=== PATIENT | male | born 1950 | race Caucasian/White ===

== ENCOUNTER 2017-06-15 03:26 | Observation (INO) | payer MEDICARE, MEDICAID, SELFPAY ==
[2017-06-15] VITALS (11 sets, daily range): BP systolic 115–145; BP diastolic 63–88; PULSE 50–62; RESP 12–18; TEMP 36.6–36.9; O2SAT 93–98; BMI 29.1; BMI 27.6; BMI 27.7
--- NOTE | 2017-06-15 03:28 | NURSING ---
CALLED FOR EKG PER RN REQUEST, PULLED OLD EKG'S FOR
--- NOTE | 2017-06-15 03:49 | CT_ITS ---
STUDY: CT BRAIN WITHOUT CONTRAST REASON FOR EXAM: Male, 67 years old. Closed head injury after recent fall. Patient is on Plavix. RADIATION DOSAGE (If Supplied By Facility): CTDIvol = ( 44.99 ) mGy, DLP = ( 796.11 ) mGycm TECHNIQUE: Transaxial CT imaging of the brain was performed without administration of intravenous contrast material. Multiplanar reformations are submitted for interpretation. Individualized dose optimization techniques were used for this CT. COMPARISON: CT of the head dated September 16, 2016. FINDINGS: Normal soft tissue structures. Normal calvarium. Normal size ventricles and extra-axial spaces for the patient's age. Normal white matter tracts of the cerebral hemispheres. Normal basal ganglia and thalami. Normal brainstem. Normal cerebellum. There is no intracranial hemorrhage. There is mild atherosclerotic calcification of intracranial arteries. Normal visualized paranasal sinuses. CT/Brain/Head without Contrast IMPRESSION: No CT evidence of acute intracranial hemorrhage. Electronically Signed: Renetta Manzanares MD at 4:50 EDT , Service support ,
--- NOTE | 2017-06-15 03:50 | RAD_ITS ---
STUDY: X-RAY CHEST REASON FOR EXAM: Male, 67 years old. Left-sided chest pain after recent fall. TECHNIQUE: AP and lateral views of the chest. COMPARISON: CT of the chest dated February 12, 2017. FINDINGS: The lungs are expanded. There is increased lucency visible in the right hemithorax that may be the result of COPD. Oligemia is also possible. There are prominent bronchovascular markings in left lung and right lung base. There is no demonstrated pleural abnormality. Normal size heart. Normal mediastinum and orion. There is prominence of the pulmonary hilar arteries with peripheral pulmonary vascular congestion. There is atherosclerotic tortuosity of the aortic arch and descending thoracic aorta. There are diffuse degenerative changes of the visualized thoracic spine. Normal visualized ribs, clavicles, and shoulders. There is no demonstrated abnormality of the visualized soft tissue structures of the upper abdomen. RAD/Chest PA and Lateral IMPRESSION: 1. Apparent oligemia involving the right lung. Differential considerations include pulmonary embolus. 2. Pulmonary congestion. Electronically Signed: Renetta Manzanares MD at 4:55 EDT , Service support ,
--- NOTE | 2017-06-15 03:51 | ED.VISSUMM ---
- ER Visit Summary Date of Service: 06/15/17 Chief Complaint: Fall at home History of Present Illness: The patient is a 67 M history of vertigo, seizures and CAD with one cardiac stent. States he has had vertiginous symptoms for last day or so. Today he lost his balance fell hit his head at home. No LOC. He states he is on Plavix secondary to cardiac stents. Denies any headache or neck pain. No chest pain or shortness of breath. He denies any nausea, vomiting or diarrhea. Physical Examination: Appearing older male. Vital signs are stable and afebrile. He does not look septic or toxic. He is in no acute distress. H EENT exam pupils round reactive light. Motions are intact. No signs of trauma to his face or scalp. No hematoma. No laceration. Nontender. Neck nontender no lymphadenopathy. Trachea midline. Lungs clear to auscultation bilaterally. Heart regular rhythm rate about 55-60. No murmur. Mild left anterior chest wall tenderness. No ecchymosis or bruising. No subcu air or crepitance. No gross bony deformity. Abdomen is soft and nontender. Normal bowel sounds. No peritoneal signs. No bruising or signs of trauma. Pelvic girdle intact. Extremities he is moving all 4. They are neurovascularly intact. Nontender no deformities. Normal range of motion. Normal senior electronics design engineer strength. Normal dorsi plantarflexion. Back exam is nontender without signs of trauma. Neurologically is awake and alert. He is answering questions and following commands. No focal motor deficits. No slurred speech. Test Results: Chest x-ray shows chronic changes no acute process read both by myself and the radiologist. CT of the brain showed no acute intracranial pathology. No acute intracranial bleed. EKG sinus bradycardia rate of 56 with no acute abnormalities unchanged from prior EKG from January of last year. CBC shows a white count 8 H&H is 17 and 50 which is his baseline. Platelet count 137,000 again his baseline. Electrolytes are unremarkable normal creatinine and gap. Orthostatic vital signs were negative. He was dizzy when he came up out of bed. Emergency Department Course and Treatment:. Reportedly hit his head on Plavix. Undergo screening labs and a CT. Treatment Plan: Repeat exam at 33 he is still complaining of vertiginous type of dizziness. Pt will have his ears irrigated out the wax bilaterally. He is doing well repeat exam he took another nitroglycerin due to his chest wall pain on his own. We cannot take anymore that. I did do a repeat EKG and showed a sinus bradycardia rate of 52 and no change from the prior. The nurses have irrigated his ears and a large amount of wax on both sides. Patient will be discharged to home on Antivert for dizziness. Instructed to follow-up with his primary care physician Dr. Mullins. Return if he is feeling worse. Disposition: Discharge Impression: Acute fall with closed head injury Anticoagulated on Plavix Dizziness with a history of vertigo Fall with chest wall contusion This note was generated with [employer] dictation software. It may contain incorrect words, spelling, and punctuation that were not noted in review of the chart prior to signing ED Disposition - Plan for ED Patient: Chief Complaint: Fall Referrals: Elijah Mullins DO [Primary Care Provider] -
[2017-06-15 04:07] LABS: Absolute Lymphocyte Count 1.13 X10^3/ul (0.83-4.51); Absolute Neutrophil Count 5.5 X10^3/uL (2.0-7.7); Basophil# 0.07 X10^3/uL; Basophil% 0.9 % (0-1); Eosinophil# 0.22 X10^3/uL; Eosinophils% 2.7 % (0-5); Hematocrit 50.7 % (40-54); Hemoglobin 17.1 g/dl (13.0-16.5); Lymphocyte # 1.13 X10^3/ul (4.0); Lymphocyte % 13.8 % (19-41); Mean Corp Hgb Conc 33.7 g/gl (32-36); Mean Corpuscular Hgb 34.1 pg (27.0-32.0); Mean Corpuscular Volume 101.2 fL (80-94); Monocyte# 1.08 X10^3/uL; Monocyte% 13.2 % (0-10); Neutrophil # 5.52 X10^3/uL (2.7-7.7); Neutrophil % 67.7 % (47-70); Platelet Count 137 K/mm3 (150-450); RBC Distribution Width CV 13.3 % (11.6-14.6); RBC Distribution Width SD 49.3 fl (35.1-43.9); Red Blood Count 5.01 M/mm3 (4.6-6.2); White Blood Count 8.2 K/mm3 (4.4-11.0)
[2017-06-15 04:08] LABS: POSITIVE COUNT NO; POSITIVE DIFFERENTIAL NO; POSITIVE MORPHOLOGY NO
[2017-06-15 04:22] LABS: Anion Gap 7 (5-15); BUN 22 mg/dL (7-18); BUN/Creat Ratio 17.2 RATIO (10-20); Calcium,Total 8.3 mg/dL (8.5-10.1); Chloride 101 mmol/L (98-107); Creatinine, Serum 1.28 mg/dL (0.70-1.30); EST Glomerular Filtration Rate 59 mL/min (>60); Est Glom Filt Rate - Afr Amer 72 mL/min (>60); Estimated Creatinine Clearance 56.24 ml/min; Glucose 93 mg/dL (74-106); Potassium 4.1 mmol/L (3.5-5.1); Sodium Level 135 mmol/L (136-145)
[2017-06-15] MEDS: Carbamide Peroxide 15 ML Bottle 5 DRP OTIC (05:46)
--- NOTE | 2017-06-15 06:22 | EKG12_ITS ---
Test Reason : CP Blood Pressure : / mmHG Vent. Rate : 056 BPM Atrial Rate : 056 BPM P-R Int : 180 ms QRS Dur : 090 ms QT Int : 406 ms P-R-T Axes : 045 -28 021 degrees QTc Int : 391 ms Sinus bradycardia Inferior infarct , age undetermined Abnormal ECG Reconfirmed by ZHAO XAVIER, RACHEL ([id number]), index editor HARSHAL SALDANA ([id number]) on 06/18/2017 1:50:36 PM Referred By: DR HALL Confirmed By:RACHEL CHURCHILL MD
--- NOTE | 2017-06-15 06:31 | EKG12_ITS ---
Test Reason : REPEAT Blood Pressure : / mmHG Vent. Rate : 052 BPM Atrial Rate : 052 BPM P-R Int : 190 ms QRS Dur : 090 ms QT Int : 422 ms P-R-T Axes : 046 -13 012 degrees QTc Int : 392 ms Sinus bradycardia Otherwise normal ECG Confirmed by RACHEL CHURCHILL MD ([id number]), publications editor HARSHAL SALDANA ([id number]) on 06/18/2017 1:55:41 PM Referred By: ISABEL Confirmed By:RACHEL CHURCHILL MD
--- NOTE | 2017-06-15 07:04 | ED.DEP ---
ED Disposition - Plan for ED Patient: Disposition: Home or Assisted Living Chief Complaint: Fall Instructions: ED Head Injury Closed, ED Vertigo Unspecified Prescriptions: Meclizine HCl [Antivert] 25 mg PO 4X/DAY PRN PRN #20 tab PRN Reason: Dizziness Referrals: Elijah Mullins DO [Primary Care Provider] - As soon as possible Additional Instructions: Antiivert for your dizziness. 1 pill every 6 hours as needed. Call and follow-up your primary care physician Dr. Mullins. Return to ER if you are feeling worse.
[2017-06-15] MEDS: Meclizine 12.5 MG Tablet 25 MG PO (08:25)
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
[2017-06-15] MEDS: oxyCODONE 5 MG Tablet PO (12:40)
--- NOTE | 2017-06-15 13:42 | CASEMGMT ---
Social Work Note Return phone call from Merrill Sanon, pt's rn case management, notifying that the pt receives 10 hrs of aide services per week. Reports that he prefers to have them come out 2x per week for 2 hrs at a time, and another 2x per week week for 3 hrs at a time. An RN from [facility] comes to his home one time per week for injections and he also receives incontinence products and has an emergency alert button. Merrill can be reached at [phone]. Brandee Rodriguez, COLLECTION TEAM LEAD, HEALTH IT SPECIALIST
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
[2017-06-15] MEDS: Meclizine HCl 25 MG Tablet PO ×2 (15:15→21:05)
--- NOTE | 2017-06-15 15:58 | CASEMGMT ---
Social Work Note SW received call from Antonia SANDS that pt is agreeable to Palliative Care referral. SW placed call to [facility] and spoke with Hortensia to give referral. SW faxed H+P, facesheet, medication list and copy of insurance card to [facility]. LAVERNE asked Dr. Vlilarreal if it was ok for this worker to make a referral for palliative care and Dr. Newton gave permission. Per WICHO Knight pt may also need SNF placement at discharge. [employer] Insurance Advisor will continue to follow to assist with discharge planning. Plan: Possible SNF placement. Begin Palliative Care services Elaine Shine PELT GRADER, PORTFOLIO ADMINISTRATOR
[2017-06-15] MEDS: Phenobarbital 32.4 MG Tablet 64.8 MG PO ×2 (17:40→21:05)
[2017-06-15] MEDS: Phenobarbital 32.4 MG Tablet PO ×2 (17:40→21:05)
[2017-06-15] MEDS: Doxazosin 1 MG Tablet 2 MG PO (21:04)
[2017-06-15] MEDS: Doxazosin 1 MG Tablet PO (21:05)
[2017-06-15] MEDS: Atorvastatin Calcium 10 MG Tablet PO (21:05)
[2017-06-15] MEDS: traZODone 100 MG Tablet PO (21:06)
[2017-06-15] MEDS: ALPRAZolam 0.5 MG Tablet 2 MG PO (21:10)
[2017-06-16] VITALS (7 sets, daily range): BP systolic 115–119; BP diastolic 61–76; PULSE 50–69; RESP 16–18; TEMP 36.7–37.1; O2SAT 98–99
[2017-06-16] MEDS: Meclizine HCl 25 MG Tablet PO ×3 (02:15→14:33)
[2017-06-16] MEDS: Aspirin 81 MG TAB.CHEW PO (08:33)
[2017-06-16] MEDS: Isosorbide Mononitrate 30 MG Tablet PO (08:34)
[2017-06-16] MEDS: Clopidogrel Bisulfate 75 MG Tablet PO (08:35)
[2017-06-16] MEDS: Montelukast 10 MG Tablet PO (08:35)
[2017-06-16] MEDS: Phenobarbital 32.4 MG Tablet PO (08:40)
[2017-06-16] MEDS: ALPRAZolam 0.5 MG Tablet 2 MG PO (08:40)
--- NOTE | 2017-06-16 10:12 | CASEMGMT ---
RN CM Note: Pt was seen by Palliative Care. Declined services @ this time. LAVERNE Henry updated. Henny NÚÑEZN RN ACM
--- NOTE | 2017-06-16 13:28 | CASEMGMT ---
Social Work Note LAVERNE received call from Sylvia Collazo from [facility] for the [facility] asking about pt's fall that led him into the hospital. LAVERNE called Sylvia back and provided Sylvia with information regarding pt's fall. LAVERNE states that pt lost balance because of vertigo and fell and did not lose conscious which is what is stated in pt's H+P. Sylvia asked if pt has DME at home and per note done by Brandee Rodriguez REGISTERED PHLEBOTOMIST PART TIME, CONFIGURATION MANAGEMENT CONSULTANT, ER SW, pt has a cane at home and has [employer]. LAVERNE met with pt to discuss discharge planning. Pt states that his plan is to go home and resume aide services. Pt states that he thinks he did well with therapy today and that he will be returning home at discharge. Pt denied additional needs or concerns at this time. LAVERNE informed RN ANGELICA Alfaro of this. Plan: Return home at discharge and resume aide services Elaine Shine REGISTERED PHLEBOTOMIST PART TIME, CONFIGURATION MANAGEMENT CONSULTANT
--- NOTE | 2017-06-16 14:41 | DCINST_ITS ---
- Discharge Diagnoses Current Active Problems: vertigo musculoskeletal pain back and chest secondary to a fall You will use the following diet at home:: Other - Resume previous diet Discharge Activity: Return to Normal Activity, May Not Drive Call your doctor if you observe: Fever of 101 or Higher, Shortness of breath, Dizziness, Fainting spells Instructions: ED Head Injury Closed, ED Vertigo Unspecified Allergies/Adverse Reactions: Allergies bee pollen Allergy (Severe, Verified 06/15/17 03:48) Anaphylaxis carbamazepine [From Tegretol] Allergy (Mild, Verified 06/15/17 03:48) Hives sucralfate [From Carafate] Allergy (Mild, Verified 06/15/17 03:48) Hives phenytoin sodium [From Dilantin] Allergy (Verified 06/15/17 03:48) Hives At doses of higher than 100 mg phenytoin sodium extended [From Dilantin] Allergy (Verified 06/15/17 03:48) Hives At doses of higher than 100 mg acetaminophen [From Tylenol] Adverse Reaction (Verified 06/15/17 12:04) Hives amlodipine besylate [From Norvasc] Adverse Reaction (Verified 06/15/17 03:48) Upset Stomach cephalexin [From Keflex] Adverse Reaction (Verified 06/15/17 03:48) Unknown sesame oil Adverse Reaction (Verified 06/15/17 03:48) Upset Stomach Sulfa (Sulfonamide Antibiotics) Adverse Reaction (Verified 06/15/17 03:48) Unknown Medications to take at Discharge Clopidogrel Bisulfate [Plavix] 75 mg PO DAILY 03/03/14 ALPRAZolam [Xanax] 2 mg PO BID 05/04/14 Aspirin [Aspirin, Baby] 81 mg PO DAILY@0800 05/04/14 Montelukast [Singulair] 10 mg PO DAILY 05/04/14 Nitroglycerin [Nitrostat] 0.4 mg SUBLINGUAL Q5M PRN 05/04/14 [place]-3 Fatty Acids/Fish Oil [[place] 3 Fish Oil Softgel] 1 ea PO DAILY 05/04/14 Ascorbic Acid [Vitamin C] 500 mg PO DAILY@0800 04/03/15 Phenobarbital 32.4 mg PO TID 04/03/15 Phenobarbital 64.8 mg PO BID 04/03/15 Potassium 99 mg PO DAILY 04/03/15 Testosterone Cypionate [Depo-Testosterone] 1 mg IM QWEEK 04/03/15 Varenicline [Chantix] 1 mg PO BID 04/03/15 traZODone [Desyrel] 100 mg PO QHS 04/03/15 Epinephrine [Epi Pen] 0.3 mg IM X1 02/11/16 Cholecalciferol (Vitamin D3) [Vitamin D3] 5,000 unit PO DAILY 09/16/16 Isosorbide Mononitrate [Isosorbide Mononitrate ER] 1 tab PO DAILY 09/16/16 Simvastatin 20 mg PO DAILY 09/16/16 [place] 15 mg PO QHS 01/11/17 Tiagabine HCl [Gabitril] 4 mg PO 4X/DAY 01/12/17 albuterol sulfate HFA 90 mcg/actuation aerosol inhaler 2 puff INHALATION Q4H PRN g 03/05/17 Diazepam [Valium] 10 mg PO PRN PRN 06/15/17 Meclizine HCl [Antivert] 25 mg PO 4X/DAY PRN PRN #20 tab 06/15/17 Oxycodone HCl/Acetaminophen [Percocet 10-325 mg Tablet] 1 tablet PO Q8H PRN PRN 06/15/17 Prazosin HCl 1 mg PO QHS 06/15/17 Meclizine HCl [Antivert] 25 mg PO Q6H PRN #20 tab 06/16/17 The following prescriptions were given: Meclizine HCl [Antivert] 25 mg PO 4X/DAY PRN PRN #20 tab PRN Reason: Dizziness Meclizine HCl [Antivert] 25 mg PO Q6H PRN #20 tab PRN Reason: Vertigo Primary Care Physician: Elijah Mullins DO [Primary Care Provider] - As soon as possible Please follow up with your Primary Care Physician in: 1-2 weeks Proposed Discharge Date: 06/16/17
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
--- NOTE | 2017-06-17 08:30 | CASEMGMT ---
Pt was discharged later in the afternoon yesterday. SW called Sharad Wise at [facility], let her know pt was discharged home yesterday, she will call pt's service providers. No further needs are anticipated. WICHO Hatfield, SPORTS PHYSICIAN
--- NOTE | 2017-06-17 11:27 | CASEMGMT ---
SW received a call from Sylvia Woodall, clinical tax investigator from [facility]. She inquired how pt fell, she states whenever a pt falls she has to find out why and report it to the dept of Medicaid. She states there are 18 different reasons she would get involved w/a pt, and falls are one. SW did let her know, for continuity of care, that pt fell due to vertigo. No further needs anticipated. WICHO Hatfield, PARTY PLAN DEALER
== END 2017-06-16 15:15 | disposition home or self-care (01) ==
LOC: ED 07:07 → MS2 11:02
PROVIDERS: Admitting Provider Internal Medicine; Emergency Provider Emergency Medicine; Family Provider Family Medicine; PCP Family Medicine; Visit Provider Internal Medicine
DX: R42 Dizziness and giddiness (principal); M54.9 Dorsalgia, unspecified; R00.1 Bradycardia, unspecified; S09.90XA Unspecified injury of head, initial encounter; W19.XXXA Unspecified fall, initial encounter; Y93.9 Activity, unspecified; Y92.009 Unspecified place in unspecified non-institutional (private) residence as the place of occurrence of the external cause; I25.10 Atherosclerotic heart disease of native coronary artery without angina pectoris; Z79.02 Long term (current) use of antithrombotics/antiplatelets; Z79.82 Long term (current) use of aspirin; Z79.899 Other long term (current) drug therapy; N40.0 Benign prostatic hyperplasia without lower urinary tract symptoms; I12.9 Hypertensive chronic kidney disease with stage 1 through stage 4 chronic kidney disease, or unspecified chronic kidney disease; N18.3 Chronic kidney disease, stage 3 (moderate); F43.12 Post-traumatic stress disorder, chronic; G40.509 Epileptic seizures related to external causes, not intractable, without status epilepticus; E78.5 Hyperlipidemia, unspecified; E66.9 Obesity, unspecified; Z68.27 Body mass index [BMI] 27.0-27.9, adult; Z71.3 Dietary counseling and surveillance; K21.9 Gastro-esophageal reflux disease without esophagitis; Z95.5 Presence of coronary angioplasty implant and graft; N52.9 Male erectile dysfunction, unspecified; D75.1 Secondary polycythemia; D69.6 Thrombocytopenia, unspecified; S20.219A Contusion of unspecified front wall of thorax, initial encounter; M51.36 Other intervertebral disc degeneration, lumbar region; Z87.891 Personal history of nicotine dependence
CPT/HCPCS: 70450; 71046; 80048; 85025; 93005; 97162; 97165; 97530; 99218; 99285; A4216; G0378; G8988

== ENCOUNTER → 2017-07-21 15:31 | Outpatient (CLI) | payer MEDICARE, MEDICAID, SELFPAY ==
[2017-07-21 17:55] LABS: Absolute Lymphocyte Count 1.14 X10^3/ul (0.83-4.51); Absolute Neutrophil Count 5.5 X10^3/uL (2.0-7.7); Basophil# 0.05 X10^3/uL; Basophil% 0.7 % (0-1); Eosinophil# 0.09 X10^3/uL; Eosinophils% 1.2 % (0-5); Hematocrit 50.6 % (40-54); Hemoglobin 16.9 g/dl (13.0-16.5); Lymphocyte # 1.14 X10^3/ul (4.0); Lymphocyte % 14.9 % (19-41); Mean Corp Hgb Conc 33.4 g/gl (32-36); Mean Corpuscular Hgb 33.7 pg (27.0-32.0); Mean Platelet Vol. 10.5 fl (6.2-12.0); Monocyte# 0.83 X10^3/uL; Monocyte% 10.9 % (0-10); Neutrophil # 5.46 X10^3/uL (2.7-7.7); Neutrophil % 71.5 % (47-70); Platelet Count 141 K/mm3 (150-450); RBC Distribution Width CV 13.4 % (11.6-14.6); RBC Distribution Width SD 49.7 fl (35.1-43.9); Red Blood Count 5.01 M/mm3 (4.6-6.2); White Blood Count 7.6 K/mm3 (4.4-11.0)
[2017-07-21 18:01] LABS: POSITIVE COUNT NO; POSITIVE DIFFERENTIAL NO; POSITIVE MORPHOLOGY NO
[2017-07-21 18:06] LABS: ALB/GLOB Ratio 1.2 RATIO (0.9-2.4); AST(SGOT) 20 U/L (15-37); Alanine Aminotransfer ALT/SGPT 36 U/L (16-61); Albumin, Serum 4.2 g/dL (3.2-5.0); Alkaline Phosphatase 73 U/L (45-117); Anion Gap 9 (5-15); BUN 17 mg/dL (7-18); BUN/Creat Ratio 12.8 RATIO (10-20); Calcium,Total 8.6 mg/dL (8.5-10.1); Chloride 102 mmol/L (98-107); Creatinine, Serum 1.33 mg/dL (0.70-1.30); EST Glomerular Filtration Rate 57 mL/min (>60); Est Glom Filt Rate - Afr Amer 69 mL/min (>60); Globulin 3.6 g/dL (2.2-4.2); Glucose 118 mg/dL (74-106); Potassium 3.8 mmol/L (3.5-5.1); Protein, Total 7.8 g/dL (6.4-8.2); Sodium Level 138 mmol/L (136-145); Thyroid Stim Hormone (TSH) 2.44 uIU/mL (0.358-3.74)
[2017-07-22 09:26] LABS: Vitamin B12 807 pg/mL (211-911)
[2017-07-24 12:08] LABS: ANTINUCLEAR ANTIBODIES DIRECT Negative (Negative)
[2017-07-26 12:06] LABS: Testosterone, Free 37.06 ng/dL (5.00-21.00)
[2017-07-26 12:46] LABS: Hep C Antibodies <0.1 s/co ratio (0.0-0.9); Testosterone, Total 1278 ng/dL (264-916)
== END ==
PROVIDERS: Family Provider Family Medicine; PCP Family Medicine; Visit Provider Family Medicine
DX: R53.83 Other fatigue (principal); R07.9 Chest pain, unspecified; E55.9 Vitamin D deficiency, unspecified; G40.909 Epilepsy, unspecified, not intractable, without status epilepticus; E29.1 Testicular hypofunction; N18.3 Chronic kidney disease, stage 3 (moderate)
CPT/HCPCS: 36415; 80053; 82306; 82607; 84402; 84403; 84443; 85025; 86038; 86225; 86235; 86803

== ENCOUNTER 2017-11-15 02:37 | Observation (INO) | payer MEDICARE, MEDICAID, SELFPAY ==
[2017-11-15] VITALS (13 sets, daily range): BP systolic 110–151; BP diastolic 57–80; PULSE 50–70; RESP 12–17; TEMP 36.4–36.6; O2SAT 94–100; BMI 29.7; BMI 28.4; BMI 28.5
--- NOTE | 2017-11-15 03:14 | EKG12_ITS ---
Test Reason : STROKE Blood Pressure : / mmHG Vent. Rate : 052 BPM Atrial Rate : 052 BPM P-R Int : 182 ms QRS Dur : 084 ms QT Int : 420 ms P-R-T Axes : 041 -22 013 degrees QTc Int : 390 ms Sinus bradycardia Inferior infarct , age undetermined Abnormal ECG Confirmed by ZHAO XAVIER, RACHEL ([id number]), writer editor HARSHAL SALDANA ([id number] on 11/17/2017 1:17:09 PM Referred By: CRICKET Confirmed By:RACHEL CHURCHILL MD
--- NOTE | 2017-11-15 03:25 | ED.VISSUMM ---
- ER Visit Summary Date of Service: 11/15/17 Chief Complaint: Seizure, slurred speech History of Present Illness: The patient is a 67 M presenting after seizure. Patient states he had a seizure tonight. He states when he stood up after the seizure he was still disoriented. He fell and hit the back of his head and his lower back. He did not lose consciousness when he fell. He denies nausea or vomiting. Denies chest pain or shortness of breath. Denies fever. He also has slurred speech. He states he is unsure what time this started but states it started tonight. Physical Examination: Vitals are stable. Patient is afebrile. Alert no acute distress. HEENT exam is unremarkable. Neck is supple. Lungs are clear and equal bilaterally. Heart is regular rate and rhythm. Abdomen is soft nontender nondistended. Extremities are unremarkable. Skin is warm and dry. NIH 1, dysarthria Remainder of exam is unremarkable. Emergency Department Course and Treatment: EKG is sinus bradycardia rate of 52. Chest x-ray shows age-indeterminate fracture of right rib 5. No acute pulmonary findings. Thoracic and lumbar spine x-ray showed no acute process. CT head and C-spine show no acute process. CBC normal except for hemoglobin 17.5, platelets 132. Chemistries show potassium 5.5, creatinine 1.38. INR is 1.0. Troponin less than 0.015. Phenobarbital 46.1. Alcohol negative. Patient continues to have dysarthria. NIH continues to be 1. Will discuss with the hospitalist for observation. Disposition: Observation Impression: Dysarthria, seizure, seizure disorder This note was generated with [employer] dictation software. It may contain incorrect words, spelling, and punctuation that were not noted in review of the chart prior to signing ED Disposition - Plan for ED Patient: Chief Complaint: Back Referrals: Elijah Mullins DO [Primary Care Provider] -
[2017-11-15 03:28] LABS: Absolute Lymphocyte Count 0.99 X10^3/ul (0.83-4.51); Absolute Neutrophil Count 6.7 X10^3/uL (2.0-7.7); Basophil# 0.04 X10^3/uL; Basophil% 0.4 % (0-1); Eosinophil# 0.26 X10^3/uL; Eosinophils% 2.8 % (0-5); Hematocrit 55.1 % (40-54); Hemoglobin 17.5 g/dl (13.0-16.5); Lymphocyte # 0.99 X10^3/ul (4.0); Lymphocyte % 10.5 % (19-41); Mean Corp Hgb Conc 31.8 g/gl (32-36); Mean Corpuscular Hgb 33.1 pg (27.0-32.0); Mean Corpuscular Volume 104.4 fL (80-94); Mean Platelet Vol. 10.1 fl (6.2-12.0); Monocyte# 1.33 X10^3/uL; Monocyte% 14.1 % (0-10); Neutrophil # 6.68 X10^3/uL (2.7-7.7); Neutrophil % 71.1 % (47-70); POSITIVE COUNT NO; POSITIVE DIFFERENTIAL NO; POSITIVE MORPHOLOGY NO; Platelet Count 132 K/mm3 (150-450); RBC Distribution Width CV 13.5 % (11.6-14.6); RBC Distribution Width SD 52.2 fl (35.1-43.9); Red Blood Count 5.28 M/mm3 (4.6-6.2); White Blood Count 9.4 K/mm3 (4.4-11.0)
[2017-11-15 03:32] LABS: Prothrombin Time (Protime)PT. 13.6 SECONDS (11.7-14.9)
[2017-11-15 03:33] LABS: Partial Thromboplast Time 27.5 Seconds (24.1-36.2)
[2017-11-15 03:43] LABS: Anion Gap 4 (5-15); BUN 17 mg/dL (7-18); BUN/Creat Ratio 12.3 RATIO (10-20); Calcium,Total 8.9 mg/dL (8.5-10.1); Chloride 104 mmol/L (98-107); Creatinine, Serum 1.38 mg/dL (0.70-1.30); EST Glomerular Filtration Rate 54 mL/min (>60); Est Glom Filt Rate - Afr Amer 66 mL/min (>60); Estimated Creatinine Clearance 52.16 ml/min; Glucose 77 mg/dL (74-106); Potassium 5.5 mmol/L (3.5-5.1); Sodium Level 140 mmol/L (136-145)
[2017-11-15 03:46] LABS: Alcohol, Blood (Medical)-Serum < 3.0 mg/dL
--- NOTE | 2017-11-15 03:47 | ED.RN ---
dr weiss made aware of phenobarb level 46.1.
[2017-11-15 04:30] LABS: Bedside Glucose 74 mg/dL (70-110)
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
[2017-11-15 08:38] LABS: AST(SGOT) 23 U/L (15-37); Alanine Aminotransfer ALT/SGPT 40 U/L (16-61); Albumin, Serum 3.5 g/dL (3.2-5.0); Alkaline Phosphatase 70 U/L (45-117); Bilirubin, Direct 0.16 mg/dL (0.00-0.30); Globulin 3.7 g/dL (2.2-4.2); Protein, Total 7.2 g/dL (6.4-8.2)
--- NOTE | 2017-11-15 10:23 | PCM.PN.HOSP ---
Subjective: Patient states that he was having a nightmare, woke up, hit his head on an object and then fell to the floor and was unable to get up. He denies any loss of consciousness. He denies any seizures. When EMS arrived, patient was having slurred speech despite his teeth being in and which is overall weak. Vitals/I&O's: Vital Signs Temp Pulse Resp BP Pulse Ox 36.4 C L 50 L 17 143/77 H 99 11/15/17 07:15 11/15/17 07:15 11/15/17 07:15 11/15/17 07:15 11/15/17 07:15 Oxygen Flow Rate (L/min) 2 Oxygen Delivery Method Nasal Cannula Weight: 90 kg Body Mass Index (BMI) 28.4 General: Alert, No apparent distress HEENT: Atraumatic, EOMI, Normocephalic, - - Does not track eyes in any direction with follow my finger nor direct commands to turn his eye in certain positions. Oral: Moist Mucosa, No Gingival or Mucosal Lesions/ Ulcerations, - - Edentulous Neck: No Nodes, Thyroid Normal Size and Texture Lungs: Clear to auscultation, Normal air movement, No rhonchi, No wheeze Cardiovascular: Regular rate, Regular Rhythm, Normal S1, Normal S2, No murmurs Abdomen: Bowel Sounds Present, Soft, Non Tender, Non-Distended, No Hepato-splenomegaly Extremities: No edema, No Calf Tenderness Skin: No rashes, No breakdown Musculoskeletal: No Tenderness to Palpation of Joints or Extremities, No Muscle Wasting Neurological: Cranial nerves II-XII grossly intact, Deep Tendon Reflexes 2+/4 and Symmetrical, Neuro grossly intact, Motor Exam 5/5 strength throughout, Coordination normal Psych/Mental Status: Normal Affect, Appropriate Laboratory Results 11/15/17 08:15: Total Bilirubin 0.40, Direct Bilirubin 0.16, AST 23, ALT 40, Alkaline Phosphatase 70, Troponin I < 0.015, Total Protein 7.2, Albumin 3.5, Globulin 3.7 Current Medications Albuterol Sulfate (Ventolin Aerosols) 2.5 mg INHALATION Q4H PRN PRN Reason: shortness of breath or wheezing Ascorbic Acid (Vitamin C) 500 mg PO DAILY@0800 [facility] Aspirin (Aspirin, Baby) 81 mg PO DAILY@0800 [facility] Clopidogrel Bisulfate (Plavix) 75 mg PO DAILY ALAN Enoxaparin Sodium (Lovenox) 40 mg SC DAILY@0600 ALAN Sodium Chloride () 1,000 mls @ 100 mls/hr IV .Q10H ALAN Isosorbide Mononitrate (Imdur) 30 mg PO DAILY ALAN Magnesium Hydroxide (Milk Of Magnesia) 30 ml PO DAILY PRN PRN Reason: Constipation Montelukast Sodium (Singulair) 10 mg PO DAILY [facility] Nitroglycerin (Nitrostat) 0.4 mg SUBLINGUAL Q5M PRN PRN Reason: Chest Pain Non-Formulary Medication ([place]) 15 mg PO QHS ALAN Non-Formulary Medication (Diazepam [Valium]) 10 mg PO PRN PRN PRN Reason: Seizure Non-Formulary Medication (Prazosin Hcl [Prazosin Hcl]) 1 mg PO QHS ALAN Non-Formulary Medication (Simvastatin [Simvastatin]) 20 mg PO DAILY ALAN Non-Formulary Medication (Testosterone Cypionate [Depo-Testosterone]) 1 mg IM QWEEK ALAN Sodium Chloride () 5 - 30 ml IV UD PRN PRN Reason: SALINE FLUSH Tiagabine HCl (Gabitril) 4 mg PO 4X/DAY ALAN Trazodone HCl (Desyrel) 100 mg PO QHS ALAN Medical Necessity - Tobacco Use Smoking Status: Former smoker Assessment/Plan All Active Problems (Last Reviewed 11/15/17 @ 05:42 by Carloz Benoit MD) History of cholecystectomy (Resolved) History of transurethral resection of prostate (Resolved) History of appendectomy (Resolved) History of cardiac catheterization (Resolved) Vertigo (Resolved) Hyponatremia (Acute) Angina at rest (Resolved) Muscle weakness of left arm (Resolved) Paresthesia of left arm (Resolved) Syncope (Resolved) 1. Slurred speech From the patient's description there is never any seizure. Patient did endorse that he did have some slurred speech Patient's speech is compensable though does have delivery reported that the fact that he does not have his dentures in. He has no focal deficits on exam. The slurred speech may have just been him being very wiped out. MRI ordered. 2. Debility Patient was unable to get off the floor, to which is why called EMS and that when they heard him talking is why they brought him in. We will have physical and occupational therapy see him and assess if he requires any skilled needs. 3. Seizure disorder Phenobarbital level was slightly high. Unclear how much that was extruding factor in regards to his debility. Patient is on 32.4 mg of phenobarbital 3 times daily at home. I would recommend twice daily dosing and follow-up with his neurologist. Continue Gabitril 4. DVT prophylaxis with Lovenox 5. Disposition: Awaiting on MRI reports plus therapy evaluation Code Visit Inpatient E&M: [id number] Subs Hosp L3
--- NOTE | 2017-11-15 10:33 | NURSING ---
Pt. transported to MRI via hospital bed with oxygen at 2 l/min.
[2017-11-15] MEDS: 0.9% Normal Saline 1,000 ML 100 ML IV (13:04)
[2017-11-15] MEDS: 0.9% NaCl Peripheral Flush Adult/Peds IV (13:06)
[2017-11-15] MEDS: Aspirin 81 MG TAB.CHEW PO (13:44)
[2017-11-15] MEDS: Enoxaparin 40 MG/0.4 ML Syringe SC (13:45)
[2017-11-15] MEDS: Isosorbide Mononitrate 30 MG Tablet PO (13:45)
[2017-11-15] MEDS: Ascorbic Acid 500 MG Tablet PO (13:45)
[2017-11-15] MEDS: Clopidogrel Bisulfate 75 MG Tablet PO (13:46)
[2017-11-15] MEDS: Montelukast 10 MG Tablet PO (13:46)
[2017-11-15 17:23] LABS: Mucous, Urine 0 SEEN /hpf (<or=2+); Red Blood Cells-Urine 0 SEEN /hpf (0-5)
--- NOTE | 2017-11-15 17:23 | PCM.DC ---
You will use the following diet at home:: Cardiac Your food should be the consistency of: Regular Your liquids should be the consistency of: Regular/Thin Call your doctor if you observe: Fever of 101 or Higher, Shortness of breath Allergies/Adverse Reactions: Allergies bee pollen Allergy (Severe, Verified 06/15/17 03:48) Anaphylaxis carbamazepine [From Tegretol] Allergy (Mild, Verified 06/15/17 03:48) Hives sucralfate [From Carafate] Allergy (Mild, Verified 06/15/17 03:48) Hives latex Allergy (Verified 11/15/17 09:10) Rash phenytoin sodium [From Dilantin] Allergy (Verified 06/15/17 03:48) Hives At doses of higher than 100 mg phenytoin sodium extended [From Dilantin] Allergy (Verified 06/15/17 03:48) Hives At doses of higher than 100 mg acetaminophen [From Tylenol] Adverse Reaction (Verified 06/15/17 12:04) Hives amlodipine besylate [From Norvasc] Adverse Reaction (Verified 06/15/17 03:48) Upset Stomach cephalexin [From Keflex] Adverse Reaction (Verified 06/15/17 03:48) Unknown sesame oil Adverse Reaction (Verified 06/15/17 03:48) Upset Stomach Sulfa (Sulfonamide Antibiotics) Adverse Reaction (Verified 06/15/17 03:48) Unknown Medications to take at Discharge Clopidogrel Bisulfate [Plavix] 75 mg PO DAILY 03/03/14 ALPRAZolam [Xanax] 2 mg PO BID 05/04/14 Aspirin [Aspirin, Baby] 81 mg PO DAILY@0800 05/04/14 Montelukast [Singulair] 10 mg PO DAILY 05/04/14 Nitroglycerin [Nitrostat] 0.4 mg SUBLINGUAL Q5M PRN 05/04/14 [place]-3 Fatty Acids/Fish Oil [[place] 3 Fish Oil Softgel] 1 ea PO DAILY 05/04/14 Ascorbic Acid [Vitamin C] 500 mg PO DAILY@0800 04/03/15 Phenobarbital 32.4 mg PO TID 04/03/15 Phenobarbital 64.8 mg PO BID 04/03/15 Potassium 99 mg PO DAILY 04/03/15 Testosterone Cypionate [Depo-Testosterone] 1 mg IM QWEEK 04/03/15 Varenicline [Chantix] 1 mg PO BID 04/03/15 traZODone [Desyrel] 100 mg PO QHS 04/03/15 Epinephrine [Epi Pen] 0.3 mg IM X1 02/11/16 Cholecalciferol (Vitamin D3) [Vitamin D3] 2,000 unit PO DAILY 09/16/16 Isosorbide Mononitrate [Isosorbide Mononitrate ER] 1 tab PO DAILY 09/16/16 Simvastatin 20 mg PO DAILY 09/16/16 [place] 15 mg PO QHS 01/11/17 Tiagabine HCl [Gabitril] 4 mg PO 4X/DAY 01/12/17 albuterol sulfate HFA 90 mcg/actuation aerosol inhaler 2 puff INHALATION Q4H PRN g 03/05/17 Diazepam [Valium] 10 mg PO PRN PRN 06/15/17 Oxycodone HCl/Acetaminophen [Percocet 10-325 mg Tablet] 1 tablet PO Q8H PRN PRN 06/15/17 Prazosin HCl 1 mg PO QHS 06/15/17 Primary Care Physician: Elijah Mullins DO [Primary Care Provider] - Within 2 Weeks Test Results: Test results from this visit will be discussed in further detail at your follow-up appointment, if applicable. Please Follow Up With: Neurology When: 1-2 months Proposed Discharge Date: 11/15/17
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
[2017-11-15 17:37] LABS: Color, Urine Straw (Yellow); Glucose, Dipstick Normal (Normal); Ketone-Dipstick Negative (Negative); Leukocyte Esterase-Dipstick 500 /ul (Negative); Nitrite-Dipstick Positive (Negative); Occult Blood-Urine 10 /ul (Negative); Protein-Dipstick Negative (Negative); Specific Gravity, Urine 1.005 (1.002-1.030); Urine Bilirubin Dipstick Negative (Negative); Urine Clarity Clear (Clear); Urine Urobilinogen Normal (Normal)
[2017-11-15 18:00] LABS: Bacteria 4+ /hpf (None Seen); Squamous Epithelial Cells - UA 0-5 SEEN /hpf (0-5); White Blood Cells 25-50 SEEN /hpf (0-5)
[2017-11-15 18:01] LABS: Amphetamine Urine VISTA NEGATIVE (<1000 ng/mL); Barbiturate Urine VISTA POSITIVE (< 200 ng/mL); Benzodiazepine Urine VISTA POSITIVE (< 200 ng/mL); Cocaine Urine VISTA NEGATIVE (< 300 ng/mL); Ecstacy Urine VISTA NEGATIVE (< 500 ng/mL); Methadone Urine VISTA NEGATIVE (< 300 ng/mL); PCP Urine VISTA NEGATIVE (< 25 ng/mL); THC Urine VISTA NEGATIVE (< 50 ng/mL); Vista UDS pH Range 6
== END 2017-11-15 18:44 | disposition home or self-care (01) ==
LOC: ED 04:41 → PCU 06:12
PROVIDERS: Admitting Provider Internal Medicine; Emergency Provider Emergency Medicine; Family Provider Family Medicine; PCP Family Medicine
DX: R47.81 Slurred speech (principal); G40.909 Epilepsy, unspecified, not intractable, without status epilepticus; R47.1 Dysarthria and anarthria; R00.1 Bradycardia, unspecified; E78.5 Hyperlipidemia, unspecified; I25.10 Atherosclerotic heart disease of native coronary artery without angina pectoris; N40.0 Benign prostatic hyperplasia without lower urinary tract symptoms; K21.9 Gastro-esophageal reflux disease without esophagitis; Z95.5 Presence of coronary angioplasty implant and graft; F43.12 Post-traumatic stress disorder, chronic; I12.9 Hypertensive chronic kidney disease with stage 1 through stage 4 chronic kidney disease, or unspecified chronic kidney disease; N18.3 Chronic kidney disease, stage 3 (moderate); Z79.899 Other long term (current) drug therapy; Z79.02 Long term (current) use of antithrombotics/antiplatelets; Z79.82 Long term (current) use of aspirin; M51.36 Other intervertebral disc degeneration, lumbar region; Z87.891 Personal history of nicotine dependence; D69.6 Thrombocytopenia, unspecified; D75.1 Secondary polycythemia
CPT/HCPCS: 70450; 70496; 70498; 70551; 71045; 72072; 72100; 72125; 80048; 80076; 80184; 80307; 80320; 81001; 82962; 84484; 85025; 85610; 85730; 92523; 93005; 96360; 96361; 96372; 97802; 99218; 99285; J7030; Q9967; A4216; G0378; G0480; G8996; G8997; G8998

== ENCOUNTER → 2017-12-10 13:47 | Outpatient (CLI) | payer MEDICARE, MEDICAID, SELFPAY ==
[2017-12-10 15:55] LABS: Hematocrit 54.4 % (40-54); Hemoglobin 17.6 g/dl (13.0-16.5); Mean Corp Hgb Conc 32.4 g/gl (32-36); Mean Corpuscular Hgb 32.6 pg (27.0-32.0); Mean Corpuscular Volume 100.7 fL (80-94); Mean Platelet Vol. 10.7 fl (6.2-12.0); Platelet Count 152 K/mm3 (150-450); RBC Distribution Width CV 13.9 % (11.6-14.6); RBC Distribution Width SD 51.8 fl (35.1-43.9); White Blood Count 8.4 K/mm3 (4.4-11.0)
[2017-12-10 16:03] LABS: Cholesterol 167 mg/dL (200); Differential Indicated MANUAL DIFF; High Density Lipoprotein 57 mg/dL; POSITIVE COUNT YES; POSITIVE DIFFERENTIAL NO; POSITIVE MORPHOLOGY YES; Triglycerides 89 mg/dL; Very Low Density Lipoprotein 18 mg/dL (5-40)
[2017-12-10 16:48] LABS: Lymphocyte 11 % (19-41); Metamyelocyte 2 % (0-1); Monocyte 8 % (0-10); Neutrophil-Band 3 % (0-5); Neutrophil-Segmented 76 % (47-70); Red Cell Morphology NORM C+C NORMAL (NORM C&C); Total Cells Counted 100 (MANUAL DIFF)
[2017-12-10 16:49] LABS: Platelet Estimate ADEQUATE (ADEQ)
[2017-12-10 16:50] LABS: Absolute Lymphocyte Count 0.93 X10^3/ul (0.83-4.51); Absolute Neutrophil Count 6.8 X10^3/uL (2.0-7.7)
[2017-12-11 15:20] LABS: Pathologist Review Reviewed
[2017-12-15 12:08] LABS: Testosterone, Free 24.59 ng/dL (5.00-21.00)
[2017-12-15 14:39] LABS: Testosterone, Total 745 ng/dL (264-916)
== END ==
PROVIDERS: Family Provider Family Medicine; PCP Family Medicine; Visit Provider Family Medicine
DX: Z51.81 Encounter for therapeutic drug level monitoring (principal); E29.1 Testicular hypofunction; R53.83 Other fatigue; I10 Essential (primary) hypertension
CPT/HCPCS: 36415; 80061; 84402; 84403; 85025

== ENCOUNTER 2018-02-13 08:18 | Emergency (ER) | payer MEDICARE, MEDICAID, SELFPAY ==
[2018-02-13 08:19] VITALS: BP 144/71; PULSE 63; RESP 18; TEMP 36.9; O2SAT 96; BMI 30.3
--- NOTE | 2018-02-13 08:22 | EKG12_ITS ---
Test Reason : CP Blood Pressure : / mmHG Vent. Rate : 064 BPM Atrial Rate : 064 BPM P-R Int : 172 ms QRS Dur : 090 ms QT Int : 394 ms P-R-T Axes : 041 -19 017 degrees QTc Int : 406 ms Normal sinus rhythm Inferior infarct , age undetermined Abnormal ECG Confirmed by ZHAO XAVIER, RACHEL ([id number]), non linear editor HARSHAL SALDANA ([id number]) on 02/15/2018 1:40:04 PM Referred By: CIARRA Confirmed By:RACHEL CHURCHILL MD
--- NOTE | 2018-02-13 08:22 | RAD_ITS ---
STUDY: X-RAY CHEST REASON FOR EXAM: Male, 67 years old. Sudden onset of chest pain this morning. TECHNIQUE: Single AP portable view of the chest. COMPARISON: 11/15/2017. FINDINGS: There are mild hypoventilatory changes. No focal infiltrate is seen. There is no demonstrated pleural abnormality. Normal size heart. Normal mediastinum and orion. Normal visualized pulmonary arteries. Normal visualized aortic arch and descending thoracic aorta. There are diffuse degenerative changes of the visualized thoracic spine. Normal visualized ribs, clavicles, and shoulders. There is no demonstrated abnormality of the visualized soft tissue structures of the upper abdomen. RAD/Chest 1 View (Portable) IMPRESSION: No active pulmonary disease. Electronically Signed: Tony Pope MD at 9:02 EST Tel , Service support ,
--- NOTE | 2018-02-13 08:24 | ED.VISSUMM ---
- ER Visit Summary Date of Service: 02/13/18 Chief Complaint: Chest pain History of Present Illness: The patient is a 67 M who presents with chest pain. Chest pain started about 3 hours ago. He describes sharp pain in the substernal area that radiated to the left arm. He took nitroglycerin which made his pain better. He did vomit once after he took the nitro. He admits to some mild shortness of breath. He has been sick with a stomach bug for the past week. He is on aspirin and Plavix daily due to a history of coronary artery disease with stent placement. Dr. Rose is his fitting room attendant. He states he is not had any recent cardiac testing or catheterizations. Physical Examination: Vital signs reviewed. HEENT exam unremarkable. Heart is regular rate and rhythm without murmurs. Lungs are clear to auscultation. Abdomen is soft and nontender. Extremities reveal no edema. Peripheral pulses are equal. Skin exam normal. Neurologic exam normal. Test Results: EKG is normal sinus rhythm with rate of 64. No ST changes. Hemoglobin is 18.3. Glucose 228. Creatinine 1.43. Troponin normal. Chest x-ray unremarkable. 3-hour troponin is also less than 0.015 Emergency Department Course and Treatment: I reviewed the patient's records. He had a normal stress test in July 2016. His ejection fraction was approximately 59%. His initial blood studies are all normal except for his hemoglobin of 18.3 which she is seeing a design engineer products about. A 3-hour troponin is also normal. He is chest pain-free. I do not feel that this is cardiac in nature. I feel that he can be discharged home with follow-up with Dr. Rose. Treatment Plan: [] Disposition: Discharge Impression: Chest pain This note was generated with [employer] dictation software. It may contain incorrect words, spelling, and punctuation that were not noted in review of the chart prior to signing ED Disposition - Plan for ED Patient: Chief Complaint: Chest Pain Referrals: Elijah Mullins DO [Primary Care Provider] -
[2018-02-13 08:39] VITALS: O2SAT 95
[2018-02-13] MEDS: Aspirin 81 MG TAB.CHEW 324 MG PO (08:39)
[2018-02-13 09:13] VITALS: BP 129/61; PULSE 60; RESP 18; O2SAT 95
[2018-02-13 09:16] LABS: Absolute Lymphocyte Count 0.66 X10^3/ul (0.83-4.51); Absolute Neutrophil Count 6.4 X10^3/uL (2.0-7.7); Basophil# 0.02 X10^3/uL; Basophil% 0.3 % (0-1); Eosinophil# 0.09 X10^3/uL; Eosinophils% 1.1 % (0-5); Lymphocyte # 0.66 X10^3/ul (4.0); Lymphocyte % 8.3 % (19-41); Mean Corp Hgb Conc 34.5 g/gl (32-36); Mean Corpuscular Hgb 34.3 pg (27.0-32.0); Mean Corpuscular Volume 99.3 fL (80-94); Mean Platelet Vol. 10.1 fl (6.2-12.0); Monocyte# 0.81 X10^3/uL; Monocyte% 10.1 % (0-10); Neutrophil # 6.36 X10^3/uL (2.7-7.7); Neutrophil % 79.4 % (47-70); POSITIVE COUNT NO; POSITIVE DIFFERENTIAL NO; POSITIVE MORPHOLOGY NO; Platelet Count 145 K/mm3 (150-450); RBC Distribution Width CV 13.6 % (11.6-14.6); RBC Distribution Width SD 49.2 fl (35.1-43.9); Red Blood Count 5.34 M/mm3 (4.6-6.2)
[2018-02-13 09:17] LABS: Anion Gap 8 (5-15); BUN 20 mg/dL (7-18); Calcium,Total 8.6 mg/dL (8.5-10.1); Chloride 103 mmol/L (98-107); Creatinine, Serum 1.43 mg/dL (0.70-1.30); EST Glomerular Filtration Rate 52 mL/min (>60); Est Glom Filt Rate - Afr Amer 63 mL/min (>60); Estimated Creatinine Clearance 50.34 ml/min; Glucose 228 mg/dL (74-106); Potassium 3.9 mmol/L (3.5-5.1); Sodium Level 138 mmol/L (136-145)
[2018-02-13 09:19] LABS: Hemoglobin 18.3 g/dl (13.0-16.5)
[2018-02-13 11:27] VITALS: BP 132/68; PULSE 51; RESP 19; O2SAT 95
--- NOTE | 2018-02-13 11:53 | ED.DEP ---
ED Disposition - Plan for ED Patient: Disposition: Home or Assisted Living Chief Complaint: Chest Pain Instructions: ED Chest Pain NonCardiac Referrals: Elijah Mullins DO [Primary Care Provider] -
[2018-02-13 11:59] VITALS: BP 152/72; PULSE 55; RESP 17; O2SAT 95
== END 2018-02-13 11:59 | disposition home or self-care (01) ==
PROVIDERS: Emergency Provider Emergency Medicine; Family Provider Family Medicine; PCP Family Medicine
DX: R07.9 Chest pain, unspecified (principal); I10 Essential (primary) hypertension; I25.10 Atherosclerotic heart disease of native coronary artery without angina pectoris; R11.10 Vomiting, unspecified; R19.7 Diarrhea, unspecified; Z79.82 Long term (current) use of aspirin; Z95.5 Presence of coronary angioplasty implant and graft; R06.02 Shortness of breath
CPT/HCPCS: 71045; 80048; 84484; 85025; 93005; 99285; A4216

== ENCOUNTER → 2018-03-11 15:20 | Outpatient (CLI) | payer MEDICARE, MEDICAID, SELFPAY ==
[2018-02-13 08:19] VITALS: BMI 30.3
[2018-03-11 17:46] LABS: Glucose 110 mg/dL (74-106)
[2018-03-11 17:50] LABS: Absolute Lymphocyte Count 1.38 X10^3/ul (0.83-4.51); Absolute Neutrophil Count 7.9 X10^3/uL (2.0-7.7); Basophil# 0.06 X10^3/uL; Basophil% 0.5 % (0-1); Eosinophil# 0.14 X10^3/uL; Eosinophils% 1.3 % (0-5); Hematocrit 53.5 % (40-54); Hemoglobin 17.7 g/dl (13.0-16.5); Lymphocyte # 1.38 X10^3/ul (4.0); Lymphocyte % 12.6 % (19-41); Mean Corp Hgb Conc 33.1 g/gl (32-36); Mean Corpuscular Hgb 33.1 pg (27.0-32.0); Mean Corpuscular Volume 100.2 fL (80-94); Mean Platelet Vol. 10.8 fl (6.2-12.0); Monocyte# 1.33 X10^3/uL; Monocyte% 12.1 % (0-10); Neutrophil # 7.92 X10^3/uL (2.7-7.7); Neutrophil % 72.3 % (47-70); Platelet Count 166 K/mm3 (150-450); RBC Distribution Width CV 13.8 % (11.6-14.6); RBC Distribution Width SD 50.2 fl (35.1-43.9); Red Blood Count 5.34 M/mm3 (4.6-6.2)
[2018-03-11 17:54] LABS: POSITIVE COUNT NO; POSITIVE DIFFERENTIAL NO; POSITIVE MORPHOLOGY NO
[2018-03-11 19:10] LABS: Hemoglobin A1c 6.3 % (4.2-6.3)
== END ==
PROVIDERS: Family Provider Family Medicine; PCP Family Medicine; Visit Provider Family Medicine
DX: R73.9 Hyperglycemia, unspecified (principal)
CPT/HCPCS: 36415; 82947; 83036; 85025

== ENCOUNTER 2018-05-03 03:30 | Inpatient (IN) | payer MEDICARE, MEDICAID, SELFPAY ==
[2018-05-03] VITALS (13 sets, daily range): BP systolic 112–135; BP diastolic 56–85; PULSE 57–83; RESP 15–18; TEMP 36.7–37.9; O2SAT 92–98; BMI 28.4; BMI 27.5; BMI 27.6
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
[2018-05-03 04:19] LABS: Absolute Lymphocyte Count 0.34 X10^3/ul (0.83-4.51); Absolute Neutrophil Count 12.9 X10^3/uL (2.0-7.7); Basophil# 0.03 X10^3/uL; Basophil% 0.2 % (0-1); Hematocrit 55.4 % (40-54); Lymphocyte # 0.34 X10^3/ul (4.0); Lymphocyte % 2.3 % (19-41); Mean Corp Hgb Conc 32.9 g/gl (32-36); Mean Corpuscular Hgb 33.5 pg (27.0-32.0); Mean Corpuscular Volume 101.8 fL (80-94); Mean Platelet Vol. 10.5 fl (6.2-12.0); Monocyte# 1.43 X10^3/uL; Monocyte% 9.7 % (0-10); Neutrophil % 87.3 % (47-70); Platelet Count 124 K/mm3 (150-450); RBC Distribution Width CV 13.9 % (11.6-14.6); RBC Distribution Width SD 52.7 fl (35.1-43.9); Red Blood Count 5.44 M/mm3 (4.6-6.2); White Blood Count 14.8 K/mm3 (4.4-11.0)
[2018-05-03 04:22] LABS: Differential Indicated SCAN CRITERIA MET; Hemoglobin 18.2 g/dl (13.0-16.5); POSITIVE COUNT NO; POSITIVE DIFFERENTIAL YES; POSITIVE MORPHOLOGY NO
--- NOTE | 2018-05-03 04:22 | ED.RN ---
dr sifuentes aware of hgb 18.2.
--- NOTE | 2018-05-03 04:30 | RAD_ITS ---
STUDY: X-RAY CHEST REASON FOR EXAM: Male, 67 years old. Cough TECHNIQUE: Single AP portable view of the chest. COMPARISON: 02/13/2018 FINDINGS: Ill-defined opacity is seen in the right upper lobe suggesting pneumonia. There is no demonstrated pleural abnormality. Normal size heart. Normal mediastinum and orion. Normal visualized pulmonary arteries. Normal visualized aortic arch and descending thoracic aorta. Normal visualized thoracic spine. Normal visualized ribs, clavicles, and shoulders. There is no demonstrated abnormality of the visualized soft tissue structures of the upper abdomen. RAD/Chest 1 View (Portable) IMPRESSION: Right upper lobe pneumonia. Electronically Signed: Zackary Robert MD at 4:58 EST Tel , Service support ,
[2018-05-03 04:35] LABS: Anion Gap 10 (5-15); BUN 19 mg/dL (7-18); BUN/Creat Ratio 11.9 RATIO (10-20); Calcium,Total 8.1 mg/dL (8.5-10.1); Chloride 105 mmol/L (98-107); EST Glomerular Filtration Rate 46 mL/min (>60); Est Glom Filt Rate - Afr Amer 55 mL/min (>60); Estimated Creatinine Clearance 44.99 ml/min; Glucose 120 mg/dL (74-106); Potassium 5.2 mmol/L (3.5-5.1); Sodium Level 141 mmol/L (136-145)
[2018-05-03] MEDS: Ketorolac 15 MG/ML Vial IV (04:47)
[2018-05-03] MEDS: 0.9% Normal Saline 1,000 ML 1000 ML IV (04:47)
[2018-05-03 05:03] LABS: Mucous, Urine 0 SEEN /hpf (<or=2+)
[2018-05-03 05:40] LABS: Color, Urine Yellow (Yellow); Glucose, Dipstick Normal (Normal); Ketone-Dipstick 5 mg/dl (Negative); Leukocyte Esterase-Dipstick 500 /ul (Negative); Nitrite-Dipstick Positive (Negative); Occult Blood-Urine 250 /ul (Negative); Protein-Dipstick 30 mg/dl (Negative); Specific Gravity, Urine 1.005 (1.002-1.030); Urine Bilirubin Dipstick Negative (Negative); Urine Clarity Cloudy (Clear); Urine Urobilinogen Normal (Normal)
[2018-05-03 06:01] LABS: Bacteria 3+ /hpf (None Seen); Red Blood Cells-Urine 0-5 SEEN /hpf (0-5); Squamous Epithelial Cells - UA 0-5 SEEN /hpf (0-5); White Blood Cells 25-50 SEEN /hpf (0-5)
--- NOTE | 2018-05-03 06:45 | ED.RN ---
Attempted to ambulate pt with his personal cane, unable to stand at bedside. PT stated his legs were going to give out. Ambulation failed.
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
--- NOTE | 2018-05-03 07:22 | NURSING ---
DR JAVON ZABALA
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
[2018-05-03] MEDS: 0.9% Normal Saline 1,000 ML 125 ML IV ×2 (10:43→20:30)
--- NOTE | 2018-05-03 10:52 | CT_ITS ---
STUDY: CT BRAIN WITHOUT CONTRAST REASON FOR EXAM: Male, 67 years old. Seizure activity. RADIATION DOSAGE (If Supplied By Facility): CTDIvol = ( 44.99 ) mGy, DLP = ( 796.11 ) mGycm TECHNIQUE: Transaxial CT imaging of the brain was performed without administration of intravenous contrast material. Individualized dose optimization techniques were used for this CT. COMPARISON: Comparison is made with prior study to November 15, 2017. FINDINGS: Normal soft tissue structures. Normal calvarium. Normal size ventricles and extra-axial spaces for the patient's age. Normal white matter tracts of the cerebral hemispheres. Normal basal ganglia and thalami. Normal brainstem. Normal cerebellum. There is no intracranial hemorrhage. There are no findings of an acute ischemic infarction. Normal visualized paranasal sinuses. CT/Brain/Head without Contrast IMPRESSION: Normal unenhanced CT scan of the brain. Electronically Signed: Sanya Jacome MD at 12:14 EST , Service support ,
[2018-05-03 12:21] LABS: Pathologist Review Reviewed
[2018-05-03] MEDS: Aspirin 81 MG TAB.CHEW PO (12:48)
[2018-05-03] MEDS: Isosorbide DN 30 MG Tablet PO (12:48)
[2018-05-03] MEDS: Clopidogrel Bisulfate 75 MG Tablet PO (12:48)
[2018-05-03] MEDS: Metoprolol(XL)Succ 50 MG Tablet PO (12:49)
[2018-05-03] MEDS: hydroCHLOROthiazide 12.5mg 12.5 MG PO (12:49)
[2018-05-03] MEDS: Ascorbic Acid 500 MG Tablet PO (12:50)
[2018-05-03] MEDS: Phenobarbital 32.4 MG Tablet 64.8 MG PO ×2 (12:55→22:29)
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
[2018-05-03 13:39] LABS: AST(SGOT) 93 U/L (15-37); Alanine Aminotransfer ALT/SGPT 47 U/L (16-61); Albumin, Serum 3.6 g/dL (3.2-5.0); Alkaline Phosphatase 66 U/L (45-117); Bilirubin, Direct 0.11 mg/dL (0.00-0.30); Globulin 3.8 g/dL (2.2-4.2); Protein, Total 7.4 g/dL (6.4-8.2)
[2018-05-03] MEDS: Heparin Injection (Vial) 5,000 UNIT/ML VIAL 5000 UNIT SC ×2 (16:19→22:17)
[2018-05-03] MEDS: oxyCODONE 5 MG Tablet 10 MG PO (16:28)
[2018-05-03] MEDS: Morphine 2 MG/ML Syringe IV (20:30)
[2018-05-03] MEDS: traZODone 100 MG Tablet PO (22:17)
[2018-05-03] MEDS: Doxazosin 1 MG Tablet PO (22:17)
[2018-05-03] MEDS: Atorvastatin Calcium 10 MG Tablet PO (22:18)
[2018-05-03] MEDS: ALPRAZolam 0.5 MG Tablet 2 MG PO (22:18)
[2018-05-03] MEDS: Zolpidem Tartrate 5 MG Tablet PO (22:18)
[2018-05-03] MEDS: 0.9% NaCl Peripheral Flush Adult/Peds IV (22:19)
[2018-05-04] VITALS (12 sets, daily range): BP systolic 105–131; BP diastolic 57–68; PULSE 57–72; RESP 16–20; TEMP 36.6–37.6; O2SAT 95–98
[2018-05-04] MEDS: 0.9% Normal Saline 1,000 ML 125 ML IV ×3 (03:43→17:32)
[2018-05-04] MEDS: Heparin Injection (Vial) 5,000 UNIT/ML VIAL 5000 UNIT SC ×3 (06:14→22:29)
[2018-05-04 06:56] LABS: Absolute Lymphocyte Count 0.61 X10^3/ul (0.83-4.51); Absolute Neutrophil Count 8.1 X10^3/uL (2.0-7.7); Basophil# 0.03 X10^3/uL; Basophil% 0.3 % (0-1); Eosinophil# 0.06 X10^3/uL; Eosinophils% 0.6 % (0-5); Hematocrit 49.4 % (40-54); Hemoglobin 16.3 g/dl (13.0-16.5); Lymphocyte # 0.61 X10^3/ul (4.0); Lymphocyte % 6.2 % (19-41); Mean Corpuscular Hgb 34.4 pg (27.0-32.0); Mean Corpuscular Volume 104.2 fL (80-94); Mean Platelet Vol. 10.4 fl (6.2-12.0); Monocyte# 1.03 X10^3/uL; Monocyte% 10.4 % (0-10); Neutrophil # 8.07 X10^3/uL (2.7-7.7); Neutrophil % 81.9 % (47-70); Platelet Count 114 K/mm3 (150-450); RBC Distribution Width CV 14.5 % (11.6-14.6); RBC Distribution Width SD 55.9 fl (35.1-43.9); Red Blood Count 4.74 M/mm3 (4.6-6.2); White Blood Count 9.9 K/mm3 (4.4-11.0)
[2018-05-04 06:57] LABS: POSITIVE COUNT NO; POSITIVE DIFFERENTIAL NO; POSITIVE MORPHOLOGY NO
[2018-05-04 07:16] LABS: Anion Gap 7 (5-15); BUN 20 mg/dL (7-18); BUN/Creat Ratio 13.2 RATIO (10-20); Calcium,Total 7.6 mg/dL (8.5-10.1); Chloride 113 mmol/L (98-107); Creatinine, Serum 1.51 mg/dL (0.70-1.30); EST Glomerular Filtration Rate 49 mL/min (>60); Est Glom Filt Rate - Afr Amer 59 mL/min (>60); Estimated Creatinine Clearance 47.67 ml/min; Glucose 96 mg/dL (74-106); Potassium 4.1 mmol/L (3.5-5.1); Sodium Level 144 mmol/L (136-145)
[2018-05-04] MEDS: Aspirin 81 MG TAB.CHEW PO (08:11)
[2018-05-04] MEDS: Ascorbic Acid 500 MG Tablet PO (08:11)
[2018-05-04] MEDS: oxyCODONE 5 MG Tablet 10 MG PO (08:13)
[2018-05-04] MEDS: Metoprolol(XL)Succ 50 MG Tablet PO (10:10)
[2018-05-04] MEDS: Clopidogrel Bisulfate 75 MG Tablet PO (10:10)
[2018-05-04] MEDS: Isosorbide DN 30 MG Tablet PO (10:11)
[2018-05-04] MEDS: hydroCHLOROthiazide 12.5mg 12.5 MG PO (10:11)
[2018-05-04] MEDS: Phenobarbital 32.4 MG Tablet 64.8 MG PO ×2 (10:19→22:29)
--- NOTE | 2018-05-04 10:57 | RAD_ITS ---
STUDY: X-RAY - RIGHT SHOULDER REASON FOR EXAM: Male, 67 years old. Increasing shoulder pain. TECHNIQUE: 4 view(s) of the shoulder. COMPARISON: None. FINDINGS: Normal glenohumeral articulation. Normal acromioclavicular joint. Normal acromion. Normal humeral head and visualized proximal humerus. The soft tissue structures are unremarkable. Normal visualized pulmonary apex. RAD/Shoulder min 2 Views IMPRESSION: Normal x-ray examination of the shoulder. Electronically Signed: Sanya Jacome, at 15:10 EST , Service support ,
--- NOTE | 2018-05-04 11:48 | PCM.PN.HOSP ---
Patient Problems: Active and Suspected Problems (Last Reviewed 01/18/18 @ 15:08 by Gabriella Cervantes) Breakthrough seizure (Acute) Subjective: Patient seen and examined. He complains of pain in his right shoulder which he says was because of a fall he sustained with the seizure. He denies any fever or chills, lightheadedness or dizziness, palpitations, abdominal pain, diarrhea or vomiting. Review of systems is otherwise negative. 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 lactose hospital product specialist Laboratory Results 05/03/18 04:05: Diff Path Review Reviewed 05/03/18 04:07: Total Bilirubin 0.90, Direct Bilirubin 0.11, AST 93 H, ALT 47, Alkaline Phosphatase 66, Total Protein 7.4, Albumin 3.6, Globulin 3.8 05/04/18 06:45: WBC 9.9, RBC 4.74, Hgb 16.3, Hct 49.4, MCV 104.2 H, MCH 34.4 H, MCHC 33.0, RDW 14.5, RDW Differential 55.9 H, Plt Count 114 L, MPV 10.4, Immature Gran % (Auto) 0.600, Neut % (Auto) 81.9 H, Lymph % (Auto) 6.2 L, [place] % (Auto) 10.4 H, Eos % (Auto) 0.6, Baso % (Auto) 0.3, Absolute Neuts (auto) 8.1 H, Absolute Lymphs (auto) 0.61 L, Total Counted Not Reportable 05/04/18 06:45: Sodium 144, Potassium 4.1, Chloride 113 H, Carbon Dioxide 24.0, Anion Gap 7, BUN 20 H, Creatinine 1.51 H, Estim Creat Clear Calc 47.67, Est GFR (MDRD) Af Amer 59 L, Est GFR (MDRD) Non-Af 49 L, BUN/Creatinine Ratio 13.2, Glucose 96, Calcium 7.6 L Diagnostic Data Chest X-Ray 05/03/18 04:30 IMPRESSION: Right upper lobe pneumonia. Electronically Signed: Zackary Robert MD at 4:58 EST Tel , Service support , Brain CT 05/03/18 10:52 IMPRESSION: Normal unenhanced CT scan of the brain. Electronically Signed: Sanya Jacome MD at 12:14 EST , Service support , Current Medications Albuterol Sulfate (Ventolin Aerosols) 2.5 mg INHALATION Q4H PRN PRN Reason: shortness of breath or wheezin Alprazolam (Xanax) 2 mg PO QHS [facility] Last Admin: 05/03/18 22:18 Dose: 2 mg Ascorbic Acid (Vitamin C) 500 mg PO DAILY@0800 [facility] Last Admin: 05/04/18 08:11 Dose: 500 mg Aspirin (Aspirin, Baby) 81 mg PO DAILY@0800 [facility] Last Admin: 05/04/18 08:11 Dose: 81 mg Atorvastatin Calcium (Lipitor) 10 mg PO QHS [facility] Last Admin: 05/03/18 22:18 Dose: 10 mg Calcium Carbonate (Tums) 1,000 mg PO Q6H PRN PRN PRN Reason: DYSPEPSIA/INDIGESTION Clopidogrel Bisulfate (Plavix) 75 mg PO DAILY [facility] Last Admin: 05/04/18 10:10 Dose: 75 mg Doxazosin Mesylate (Cardura) 1 mg PO QHS [facility] Last Admin: 05/03/18 22:17 Dose: 1 mg Epinephrine HCl () 0.3 mg IM X1 PRN PRN Reason: ALLERGIC RXN Heparin Sodium (Porcine) (Heparin Na) 5,000 unit SC Q8 [facility] Last Admin: 05/04/18 06:14 Dose: 5,000 unit Hydrochlorothiazide () 12.5 mg PO DAILY [facility] Last Admin: 05/04/18 10:11 Dose: 12.5 mg Sodium Chloride () 1,000 mls @ 125 mls/hr IV .Q8H [facility] Last Admin: 05/04/18 10:21 Dose: 125 mls/hr Piperacillin Sod/Tazobactam (Sod 3.375 gm/ Sodium Chloride) 50 mls @ 12.5 mls/hr IV Q8 [facility] Last Admin: 05/04/18 06:14 Dose: 12.5 mls/hr Isosorbide Dinitrate (Isordil) 30 mg PO DAILY [facility] Last Admin: 05/04/18 10:11 Dose: 30 mg Magnesium Hydroxide (Milk Of Magnesia) 30 ml PO DAILY PRN PRN PRN Reason: Constipation Metoprolol Succinate (Toprol Xl (Beta Dorota)) 50 mg PO DAILY [facility] Last Admin: 05/04/18 10:10 Dose: 50 mg Montelukast Sodium (Singulair) 10 mg PO DAILY PRN PRN PRN Reason: ALLERGIES Nitroglycerin (Nitrostat) 0.4 mg SUBLINGUAL Q5M PRN PRN Reason: Chest Pain Oxycodone HCl (Oxyir) 10 mg PO Q8H PRN PRN Reason: PAIN Last Admin: 05/04/18 08:13 Dose: 10 mg Phenobarbital (Phenobarbital) 64.8 mg PO BID [facility] Last Admin: 05/04/18 10:19 Dose: 64.8 mg Sodium Chloride () 5 - 15 ml IV UD PRN PRN Reason: SALINE FLUSH Last Admin: 05/03/18 22:19 Dose: 10 ml Tiagabine HCl (Gabitril) 4 mg PO 4X/DAY [facility] Trazodone HCl (Desyrel) 100 mg PO QHS [facility] Last Admin: 05/03/18 22:17 Dose: 100 mg Zolpidem Tartrate (Ambien (Generic)) 5 mg PO QHS PRN PRN Reason: INSOMNIA Last Admin: 05/03/18 22:18 Dose: 5 mg Medical Necessity - Tobacco Use Smoking Status: Former smoker Assessment/Plan All Active Problems (Last Reviewed 01/18/18 @ 15:08 by Gabriella Cervantes) Breakthrough seizure (Acute) History of cholecystectomy (Resolved) History of transurethral resection of prostate (Resolved) History of appendectomy (Resolved) History of cardiac catheterization (Resolved) Vertigo (Resolved) Hyponatremia (Acute) Angina at rest (Resolved) Hernia (Resolved) Muscle weakness of left arm (Resolved) Paresthesia of left arm (Resolved) Syncope (Resolved) 67-year-old admitted with a complaint of seizure. 1. Breakthrough seizure in a patient with seizure disorder stable. seizure hasnt recurred CT head was negative admitted to noncompliance with his meds. Exact dosage of his meds is unclear. Patient said he had been following up with Dr. Morales. Per neurology review of the documentation, patient last followed up with Dr. Morales in 2014. It is therefore not clear whether patient was taking 64.8 mg twice daily, 32.4 mg 3 times daily or taking all of these doses daily. Will call pharmacy to verify exact dose that patient was taken as per neurology, which will resume patient's baseline dose. 2. UTI UA positive for UTI on IV zosyn urine cultured gram negative lactose hospital product specialist. Speciation is pending. blood cultures pending. 3. Possible aspiration Pneumonia patient has no cough; however, CXR done on admission showed defined opacity in the right upper lobe suggestive of pneumonia. at risk of aspiration due to seizure on IV zosyn. blood cultures pending. 4. Right shoulder pain due to trauma unable to elevated his RUE above his shoulder due to pain. says he thinks its due to the fall he sustained with the seizure. will get xray of right shoulder. tylenol for pain 5. Hyperkalemia: resolved. K is down to 4.1 from 5.2 on admission. 6. Bradycardia: resolved. HR in 60s and 70s. 7. Acute on chronic renal insufficiency baseline Cr is ~ 1.2 from 2016. Cr today is 1.51. Will hydrate and monitor 8. Polycythemia: Hb is down to 16.3 from 18.2 on admisison does have a history of chronic elevated Hb, for which he says he was following up with hematology on testosterone shots, which can also cause this to follow up with hematology and PCP after discharge. 9. Hypertension: On metoprolol and hydrochlorothiazide. 10. CAD:on aspirin, statin and imdur as well as metoprolol 11. Hyperlipidemia: on statin 12. PTSD: on Ambien and trazodone as well as Xanax. DVT prophylaxis: heparin Code Visit Inpatient E&M: 46159 Subs Hosp L3
--- NOTE | 2018-05-04 11:58 | PN_ITS ---
Patient Problems: Active and Suspected Problems (Last Reviewed 01/18/18 @ 15:08 by Gabriella Cervantes) Breakthrough seizure (Acute) Subjective: Patient seen and examined. He complains of pain in his right shoulder which he says was because of a fall he sustained with the seizure. He denies any fever or chills, lightheadedness or dizziness, palpitations, abdominal pain, diarrhea or vomiting. Review of systems is otherwise negative. 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 Laboratory Results 05/03/18 04:05: Diff Path Review Reviewed 05/03/18 04:07: Total Bilirubin 0.90, Direct Bilirubin 0.11, AST 93 H, ALT 47, Alkaline Phosphatase 66, Total Protein 7.4, Albumin 3.6, Globulin 3.8 05/04/18 06:45: WBC 9.9, RBC 4.74, Hgb 16.3, Hct 49.4, MCV 104.2 H, MCH 34.4 H, MCHC 33.0, RDW 14.5, RDW Differential 55.9 H, Plt Count 114 L, MPV 10.4, Immature Gran % (Auto) 0.600, Neut % (Auto) 81.9 H, Lymph % (Auto) 6.2 L, [place] % (Auto) 10.4 H, Eos % (Auto) 0.6, Baso % (Auto) 0.3, Absolute Neuts (auto) 8.1 H, Absolute Lymphs (auto) 0.61 L, Total Counted Not Reportable 05/04/18 06:45: Sodium 144, Potassium 4.1, Chloride 113 H, Carbon Dioxide 24.0, Anion Gap 7, BUN 20 H, Creatinine 1.51 H, Estim Creat Clear Calc 47.67, Est GFR (MDRD) Af Amer 59 L, Est GFR (MDRD) Non-Af 49 L, BUN/Creatinine Ratio 13.2, Glucose 96, Calcium 7.6 L Diagnostic Data Chest X-Ray 05/03/18 04:30 IMPRESSION: Right upper lobe pneumonia. Electronically Signed: Zackary Robert MD at 4:58 EST Tel , Service support , Brain CT 05/03/18 10:52 IMPRESSION: Normal unenhanced CT scan of the brain. Electronically Signed: Sanya Jacome MD at 12:14 EST , Service support , Current Medications Albuterol Sulfate (Ventolin Aerosols) 2.5 mg INHALATION Q4H PRN PRN Reason: shortness of breath or wheezin Alprazolam (Xanax) 2 mg PO QHS [facility] Last Admin: 05/03/18 22:18 Dose: 2 mg Ascorbic Acid (Vitamin C) 500 mg PO DAILY@0800 [facility] Last Admin: 05/04/18 08:11 Dose: 500 mg Aspirin (Aspirin, Baby) 81 mg PO DAILY@0800 [facility] Last Admin: 05/04/18 08:11 Dose: 81 mg Atorvastatin Calcium (Lipitor) 10 mg PO QHS [facility] Last Admin: 05/03/18 22:18 Dose: 10 mg Calcium Carbonate (Tums) 1,000 mg PO Q6H PRN PRN PRN Reason: DYSPEPSIA/INDIGESTION Clopidogrel Bisulfate (Plavix) 75 mg PO DAILY [facility] Last Admin: 05/04/18 10:10 Dose: 75 mg Doxazosin Mesylate (Cardura) 1 mg PO QHS [facility] Last Admin: 05/03/18 22:17 Dose: 1 mg Epinephrine HCl () 0.3 mg IM X1 PRN PRN Reason: ALLERGIC RXN Heparin Sodium (Porcine) (Heparin Na) 5,000 unit SC Q8 [facility] Last Admin: 05/04/18 06:14 Dose: 5,000 unit Hydrochlorothiazide () 12.5 mg PO DAILY [facility] Last Admin: 05/04/18 10:11 Dose: 12.5 mg Sodium Chloride () 1,000 mls @ 125 mls/hr IV .Q8H [facility] Last Admin: 05/04/18 10:21 Dose: 125 mls/hr Piperacillin Sod/Tazobactam (Sod 3.375 gm/ Sodium Chloride) 50 mls @ 12.5 mls/hr IV Q8 [facility] Last Admin: 05/04/18 06:14 Dose: 12.5 mls/hr Isosorbide Dinitrate (Isordil) 30 mg PO DAILY [facility] Last Admin: 05/04/18 10:11 Dose: 30 mg Magnesium Hydroxide (Milk Of Magnesia) 30 ml PO DAILY PRN PRN PRN Reason: Constipation Metoprolol Succinate (Toprol Xl (Beta Dorota)) 50 mg PO DAILY [facility] Last Admin: 05/04/18 10:10 Dose: 50 mg Montelukast Sodium (Singulair) 10 mg PO DAILY PRN PRN PRN Reason: ALLERGIES Nitroglycerin (Nitrostat) 0.4 mg SUBLINGUAL Q5M PRN PRN Reason: Chest Pain Oxycodone HCl (Oxyir) 10 mg PO Q8H PRN PRN Reason: PAIN Last Admin: 05/04/18 08:13 Dose: 10 mg Phenobarbital (Phenobarbital) 64.8 mg PO BID [facility] Last Admin: 05/04/18 10:19 Dose: 64.8 mg Sodium Chloride () 5 - 15 ml IV UD PRN PRN Reason: SALINE FLUSH Last Admin: 05/03/18 22:19 Dose: 10 ml Tiagabine HCl (Gabitril) 4 mg PO 4X/DAY [facility] Trazodone HCl (Desyrel) 100 mg PO QHS [facility] Last Admin: 05/03/18 22:17 Dose: 100 mg Zolpidem Tartrate (Ambien (Generic)) 5 mg PO QHS PRN PRN Reason: INSOMNIA Last Admin: 05/03/18 22:18 Dose: 5 mg Medical Necessity - Tobacco Use Smoking Status: Former smoker Assessment/Plan All Active Problems (Last Reviewed 01/18/18 @ 15:08 by Gabriella Cervantes) Breakthrough seizure (Acute) History of cholecystectomy (Resolved) History of transurethral resection of prostate (Resolved) History of appendectomy (Resolved) History of cardiac catheterization (Resolved) Vertigo (Resolved) Hyponatremia (Acute) Angina at rest (Resolved) Hernia (Resolved) Muscle weakness of left arm (Resolved) Paresthesia of left arm (Resolved) Syncope (Resolved) 67-year-old admitted with a complaint of seizure. 1. Breakthrough seizure in a patient with seizure disorder * stable. seizure hasnt recurred * CT head was negative * admitted to noncompliance with his meds. Exact dosage of his meds is unclear. Patient said he had been following up with Dr. Morales. Per neurology review of the documentation, patient last followed up with Dr. Morales in 2014. It is therefore not clear whether patient was taking 64.8 mg twice daily, 32.4 mg 3 times daily or taking all of these doses daily. Will call pharmacy to v erify exact dose that patient was taken as per neurology, which will resume patient's baseline dose. * * 2. 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 Speciation is pending. * blood cultures pending. * * 3. Possible aspiration Pneumonia * patient has no cough; however, CXR done on admission showed defined opacity in the right upper lobe suggestive of pneumonia. * at risk of aspiration due to seizure * on IV zosyn. blood cultures pending. * 4. Right shoulder pain due to trauma * unable to elevated his RUE above his shoulder due to pain. says he thinks its due to the fall he sustained with the seizure. * will get xray of right shoulder. * tylenol for pain * 5. Hyperkalemia: resolved. K is down to 4.1 from 5.2 on admission. 6. Bradycardia: resolved. HR in 60s and 70s. 7. Acute on chronic renal insufficiency * baseline Cr is ~ 1.2 from 2016. Cr today is 1.51. Will hydrate and monitor * 8. Polycythemia: * Hb is down to 16.3 from 18.2 on admisison * does have a history of chronic elevated Hb, for which he says he was following up with hematology * on testosterone shots, which can also cause this * to follow up with hematology and PCP after discharge. * 9. Hypertension: On metoprolol and hydrochlorothiazide. 10. CAD:on aspirin, statin and imdur as well as metoprolol 11. Hyperlipidemia: on statin 12. PTSD: on Ambien and trazodone as well as Xanax. DVT prophylaxis: heparin Code Visit Inpatient E&M: 37935 Subs Hosp L3
[2018-05-04] MEDS: Ondansetron 4 MG/2 ML Vial IV (12:50)
--- NOTE | 2018-05-04 14:00 | NURSING ---
wound photo: right lower leg
--- NOTE | 2018-05-04 14:01 | NURSING ---
wound photo: right arm
--- NOTE | 2018-05-04 15:34 | CASEMGMT ---
RN CM Assessment Presentation: Seizure, unwitnessed, general tonic/clonic. Intro role of CM and purpose of RN CM assessment. Pt sleepy but able to participate in assessment. Pt states he lives alone, has neighbor who can assist with transportation if unable to drive. Brother lives in [place]. Pt stated he generally is independent but has aides who help him during the week through [facility]. PCP: Dr. Mullins [facility]acy[facility] Insurance: Medicare/[facility] Community Plan Prescription Benefit: yes LNOK: BrotherSurya Living Arrangements: Lives independently in one story apartment. Has aides who assist during the week with [facility]. Transportation: pt states he drives, but if unable, his neighbor will assist. DME: shower chair, cane, medical alert -Oxygen through [facility]. Call to [facility] to verify script which is for 2L @ night and no portability. If continuous O2 is needed, will need oxygen testing and new script faxed to [facility]. HHC: [facility] -Skilled RN comes once every two weeks for injection. Send resume order on discharge -Aides 10 hr/week through [employer] -[facility] Master Ship: [facility] -[facility] CM called to [facility]- spoke instead to oncall person and notified of pt admission. Called to [facility] @ [place] to verify services and update that pt is @ [facility]. DC PLAN: Undetermined. PT/OT evals pending. May need Home oxygen testing on dc. Henny NÚÑEZN RN AC
[2018-05-04] MEDS: Doxazosin 1 MG Tablet PO (22:29)
[2018-05-04] MEDS: Atorvastatin Calcium 10 MG Tablet PO (22:29)
[2018-05-04] MEDS: traZODone 100 MG Tablet PO (22:29)
[2018-05-04] MEDS: ALPRAZolam 0.5 MG Tablet 2 MG PO (22:29)
[2018-05-05] MEDS: 0.9% Normal Saline 1,000 ML 125 ML IV (01:35)
[2018-05-05 02:58] VITALS: PULSE 57
[2018-05-05] MEDS: Loperamide 2 MG Capsule 4 MG PO (03:09)
[2018-05-05 03:12] VITALS: BP 150/78; PULSE 54; RESP 16; TEMP 36.6; O2SAT 94
[2018-05-05] MEDS: Heparin Injection (Vial) 5,000 UNIT/ML VIAL 5000 UNIT SC (05:04)
[2018-05-05 06:50] LABS: Absolute Lymphocyte Count 0.65 X10^3/ul (0.83-4.51); Absolute Neutrophil Count 6.6 X10^3/uL (2.0-7.7); Basophil# 0.03 X10^3/uL; Basophil% 0.4 % (0-1); Eosinophil# 0.15 X10^3/uL; Eosinophils% 1.8 % (0-5); Hematocrit 45.4 % (40-54); Hemoglobin 15.1 g/dl (13.0-16.5); Lymphocyte # 0.65 X10^3/ul (4.0); Lymphocyte % 7.8 % (19-41); Mean Corp Hgb Conc 33.3 g/gl (32-36); Mean Corpuscular Volume 105.3 fL (80-94); Mean Platelet Vol. 10.7 fl (6.2-12.0); Monocyte# 0.81 X10^3/uL; Monocyte% 9.8 % (0-10); Neutrophil # 6.61 X10^3/uL (2.7-7.7); Neutrophil % 79.7 % (47-70); Platelet Count 117 K/mm3 (150-450); RBC Distribution Width CV 14.7 % (11.6-14.6); RBC Distribution Width SD 57.3 fl (35.1-43.9); Red Blood Count 4.31 M/mm3 (4.6-6.2); White Blood Count 8.3 K/mm3 (4.4-11.0)
[2018-05-05 06:52] LABS: POSITIVE COUNT NO; POSITIVE DIFFERENTIAL NO; POSITIVE MORPHOLOGY NO
[2018-05-05 07:24] LABS: Anion Gap 7 (5-15); BUN 20 mg/dL (7-18); BUN/Creat Ratio 15.2 RATIO (10-20); Calcium,Total 7.9 mg/dL (8.5-10.1); Chloride 112 mmol/L (98-107); Creatinine, Serum 1.32 mg/dL (0.70-1.30); EST Glomerular Filtration Rate 57 mL/min (>60); Est Glom Filt Rate - Afr Amer 69 mL/min (>60); Estimated Creatinine Clearance 54.53 ml/min; Glucose 100 mg/dL (74-106); Potassium 4.4 mmol/L (3.5-5.1); Sodium Level 145 mmol/L (136-145)
[2018-05-05 07:59] VITALS: PULSE 54
[2018-05-05] MEDS: Ascorbic Acid 500 MG Tablet PO (08:41)
[2018-05-05] MEDS: Aspirin 81 MG TAB.CHEW PO (08:41)
[2018-05-05] MEDS: oxyCODONE 5 MG Tablet 10 MG PO (09:07)
[2018-05-05 09:08] VITALS: BP 151/69; PULSE 67
[2018-05-05] MEDS: Metoprolol(XL)Succ 50 MG Tablet PO (09:08)
[2018-05-05] MEDS: hydroCHLOROthiazide 12.5mg 12.5 MG PO (09:08)
[2018-05-05] MEDS: Clopidogrel Bisulfate 75 MG Tablet PO (09:08)
[2018-05-05] MEDS: Isosorbide DN 30 MG Tablet PO (09:08)
[2018-05-05 09:10] VITALS: BP 151/69; PULSE 66; RESP 18; TEMP 36.2; O2SAT 97
[2018-05-05] MEDS: Phenobarbital 32.4 MG Tablet 64.8 MG PO (09:15)
--- NOTE | 2018-05-05 10:40 | DCINST_ITS ---
- Discharge Diagnoses Current Active Problems: Current Active and Chronic Problems (Last Reviewed 01/18/18 @ 15:08 by Gabriella Cervantes) Breakthrough seizure (Acute) You will use the following diet at home:: Cardiac Your food should be the consistency of: Regular Your liquids should be the consistency of: Regular/Thin Discharge Activity: Return to Normal Activity Weight Bearing Status: Weight bearing as tolerated Call your doctor if you observe: Fever of 101 or Higher, Dizziness, Fainting spells Instructions: Dysuria Allergies/Adverse Reactions: Allergies bee pollen Allergy (Severe, Verified 05/03/18 03:36) Anaphylaxis acetaminophen [From Tylenol] Adverse Reaction (Severe, Verified 05/03/18 03:36) Hives itch amlodipine besylate [From Norvasc] Adverse Reaction (Severe, Verified 05/03/18 03:36) Upset Stomach cephalexin [From Keflex] Adverse Reaction (Severe, Verified 05/03/18 03:36) Hives mental change latex Adverse Reaction (Severe, Verified 05/03/18 03:36) Rash phenytoin sodium [From Dilantin] Adverse Reaction (Severe, Verified 05/03/18 03:36) Hives At doses of higher than 100 mg phenytoin sodium extended [From Dilantin] Adverse Reaction (Severe, Verified 05/03/18 03:36) Hives At doses of higher than 100 mg sesame oil Adverse Reaction (Severe, Verified 05/03/18 03:36) Upset Stomach carbamazepine [From Tegretol] Adverse Reaction (Mild, Verified 05/03/18 03:36) Hives sucralfate [From Carafate] Adverse Reaction (Mild, Verified 05/03/18 03:36) Hives Sulfa (Sulfonamide Antibiotics) Adverse Reaction (Verified 02/13/18 08:29) Unknown Medications to take at Discharge Clopidogrel Bisulfate [Plavix] 75 mg PO DAILY 03/03/14 Aspirin [Aspirin, Baby] 81 mg PO DAILY@0800 05/04/14 Montelukast [Singulair] 10 mg PO DAILY 05/04/14 Nitroglycerin [Nitrostat] 0.4 mg SUBLINGUAL Q5M PRN 05/04/[address] [place]-3 Fatty Acids/Fish Oil [[place] 3 Fish Oil Softgel] 1 ea PO DAILY 05/04/14 Ascorbic Acid [Vitamin C] 500 mg PO DAILY@0800 04/03/15 Phenobarbital 32.4 mg PO TID 04/03/15 Testosterone Cypionate [Depo-Testosterone] 2 mg IM QWEEK 04/03/15 traZODone [Desyrel] 100 mg PO QHS 04/03/15 Epi Pen (for allergic rxn) 0.3 mg IM X1 PRN 02/11/16 Cholecalciferol (Vitamin D3) [Vitamin D3] 5,000 unit PO QWEEK 09/16/16 Tiagabine HCl [Gabitril] 4 mg PO 4X/DAY 01/12/17 albuterol sulfate HFA 90 mcg/actuation aerosol inhaler 2 puff INHALATION Q4H PRN g 03/05/17 Oxycodone HCl/Acetaminophen [Percocet 10-325 mg Tablet] 1 tab PO Q8H PRN PRN 06/15/17 Prazosin HCl 1 mg PO QHS 06/15/17 Isosorbide Dinitrate 30 mg PO DAILY 01/07/18 Metoprolol Liriano/Hydrochlorothiaz [Metoprolol ER-Hctz 50-12.5 mg] 1 each PO DAILY 01/18/18 Vitamin B Complex [Balanced B-50] 1 each PO DAILY 01/19/18 ALPRAZolam [Xanax] 2 mg PO QHS 02/13/18 Simvastatin [Zocor] 20 mg PO QHS 02/13/18 Zolpidem Tartrate [Ambien Cr] 12.5 mg PO QHS PRN PRN 02/13/18 Phenobarbital 64.8 mg PO BID 05/03/18 levoFLOXacin tablet [Levaquin tablet] 500 mg PO DAILY #3 tablet 05/05/18 The following prescriptions were given: levoFLOXacin tablet [Levaquin tablet] 500 mg PO DAILY #3 tablet Primary Care Physician: Elijah Mullins DO [Primary Care Provider] - Please follow up with your Primary Care Physician in: one week Test Results: Test results from this visit will be discussed in further detail at your follow- up appointment, if applicable. Please Follow Up With: Va Santana MD When: 1-2 weeks Proposed Discharge Date: 05/05/18
[2018-05-05 10:42] VITALS: BP 151/69; PULSE 66; RESP 18; TEMP 36.2; O2SAT 97
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
--- NOTE | 2018-05-05 10:42 | CASEMGMT ---
SW received a call from Marnie with [facility]. She said patient has nursing every other week and 10 hrs of aides a week. She just asked that we let her know when patient is discharged. Sherlyn DIAS MSW
--- NOTE | 2018-05-05 10:57 | CASEMGMT ---
LAVERNE spoke with patient and asked if he would like PT/OT at home. He said he does his own therapy at home. LAVERNE told him we will notify [facility] and [facility] know about his discharge. LAVERNE called Marnie at [facility] and let her know about d/c. LAVERNE also faxed her H&P, d/c instructions, and order to resume . LAVERNE also called Essence at [facility] leaving her a voice mail and also let Lyndsay on the coverage line know about d/c. Plan: d/c home with resumption of [facility] jail and aides through [employer]. Sherlyn DIAS FLOOR HELPER
--- NOTE | 2018-05-06 15:29 | CASEMGMT ---
SAVAGE DOMINGUEZ Discharge Follow-up Phone Call: ZOË: Kareen Strata: 3 Call Date: 05/06/18 Discharge Date: 05/05/18 Time of Call: 1525 Duration: 5 min Admitting Diagnosis: Seizure SAVAGE DOMINGUEZ completed follow-up phone call after recent hospitalization. Patient states that he is doing ok but is a little sore. Patient states he has no questions regarding discharge instructions. Patient was able to fill prescription without any issues. [facility] has been out to see patient today. Patient is aware of follow-up appt for 05/12. Patient voiced no further concern at this time.
== END 2018-05-05 13:13 | disposition home or self-care (01) | DRG 100 ==
LOC: ED 06:56 → PCU 07:46
PROVIDERS: Psychiatry & Neurology Neurology; Admitting Provider Student in an Organized Health Care Education/Training Program; Emergency Provider Emergency Medicine; Family Provider Family Medicine; PCP Family Medicine; Referring Provider Student in an Organized Health Care Education/Training Program; Visit Provider Student in an Organized Health Care Education/Training Program
DX: G40.909 Epilepsy, unspecified, not intractable, without status epilepticus (principal); J69.0 Pneumonitis due to inhalation of food and vomit; N39.0 Urinary tract infection, site not specified; I25.10 Atherosclerotic heart disease of native coronary artery without angina pectoris; F43.10 Post-traumatic stress disorder, unspecified; N40.0 Benign prostatic hyperplasia without lower urinary tract symptoms; K21.9 Gastro-esophageal reflux disease without esophagitis; E87.5 Hyperkalemia; R00.1 Bradycardia, unspecified; D75.1 Secondary polycythemia; E78.5 Hyperlipidemia, unspecified; Z79.82 Long term (current) use of aspirin; Z87.891 Personal history of nicotine dependence; Z95.5 Presence of coronary angioplasty implant and graft; Z79.899 Other long term (current) drug therapy; E29.1 Testicular hypofunction; M51.36 Other intervertebral disc degeneration, lumbar region; B96.89 Other specified bacterial agents as the cause of diseases classified elsewhere
CPT/HCPCS: 36415; 70450; 71045; 73030; 80048; 80076; 80184; 81001; 85025; 87040; 87077; 87086; 87088; 87186; 87493; 97162; 97166; 97530; 99285; J7030; J7040; J7050; A4216; J2405

== ENCOUNTER 2018-08-17 01:03 | Emergency (ER) | payer MEDICARE, MEDICAID, SELFPAY ==
[2018-05-03 08:38] VITALS: BMI 27.5
[2018-08-17 01:04] VITALS: BP 148/78; PULSE 79; RESP 18; TEMP 36.9; O2SAT 94
[2018-08-17 01:15] VITALS: PULSE 75; RESP 16; O2SAT 95
--- NOTE | 2018-08-17 01:28 | EKG12_ITS ---
Test Reason : Blood Pressure : / mmHG Vent. Rate : 067 BPM Atrial Rate : 067 BPM P-R Int : 166 ms QRS Dur : 092 ms QT Int : 394 ms P-R-T Axes : 051 -14 016 degrees QTc Int : 416 ms Normal sinus rhythm Inferior MO, Age Undetermined, Cannot be Excluded Confirmed by HAVEN XAVIER, SILVER ([id number]), book or script editor KERI WONG ([id number]) on 08/18/2018 11:21:01 AM Referred By: MIRZA Confirmed By:SILVER OROURKE MD
--- NOTE | 2018-08-17 01:28 | RAD_ITS ---
STUDY: X-RAY CHEST REASON FOR EXAM: Male, 68 years old. Seizure TECHNIQUE: Single AP portable view of the chest. COMPARISON: May 03, 2018 chest x-ray FINDINGS: The lungs are clear and expanded. There is no demonstrated pleural abnormality. Normal size heart. Normal mediastinum and orion. Normal visualized pulmonary arteries. Normal visualized aortic arch and descending thoracic aorta. There are diffuse degenerative changes of the visualized thoracic spine. Normal visualized ribs, clavicles, and shoulders. There is no demonstrated abnormality of the visualized soft tissue structures of the upper abdomen. RAD/Chest 1 View (Portable) IMPRESSION: Degenerative changes, as described above. No demonstrated acute cardiopulmonary process. Electronically Signed: Kenya Laws MD at 1:59 EDT Tel , Service support ,
--- NOTE | 2018-08-17 01:29 | CT_ITS ---
We are attempting to reach an attending provider to discuss findings. An addendum with communication details will be sent when the communication is complete. HISTORY: SZ AND HIT HEAD EXAMINATION: CT Spine Cervical W/O Contrast TECHNIQUE: Helically acquired images were obtained of the cervical spine. 2D reformatted images were reviewed. A radiation dose optimization technique was used for this scan. IV Contrast dosage and agent: None. COMPARISON: None FINDINGS: Acute, mildly displaced fracture of the upper C6 vertebral body. The fracture extends laterally to involve the right transverse process. No encroachment of the right vertebral foramen or bony retropulsion is seen. The pedicles and posterior elements appear intact. No spondylolisthesis. Intact dens and craniocervical junction. Lumbar spine degenerative spondylosis with endplate spurring throughout. Degenerative disc calcification with degenerative ankylosis of the C4-5 and C5-6 disks. C6-7 advanced degenerative disc disease and spondylosis with bilateral uncovertebral spurring at this level. CT/Spine Cervical without Contras IMPRESSION: 1. Acute mildly displaced fracture of the upper C6 vertebral body. No bony retropulsion, spondylolisthesis, or CT findings of instability. 2. Cervical spine degenerative spondylosis throughout. Individualized dose optimization techniques were used for this CT. at 0241 Reported and signed by: Anthony Motta MD Electronically Signed: Anthony Motta, at 2:40 EDT Tel , Service support ,
--- NOTE | 2018-08-17 01:29 | CT_ITS ---
HISTORY: Seizure AND HIT HEAD, HX HTN, COPD EXAMINATION: CT Head or Brain W/O Contrast TECHNIQUE: Multiple axial images were obtained of the brain without intravenous contrast. A radiation dose optimization technique was used for this scan. IV Contrast dosage and agent: None. COMPARISON: 05/03/2018 FINDINGS: No significant change. Normal ventricles and age appropriate cerebral cortical atrophy. No intracranial mass, hemorrhage, or acute retinal abnormality. Vertebrobasilar atherosclerotic calcifications and otherwise negative posterior fossa. No suspicious extra-axial fluid collection. The calvarium appears intact. As visualized, mastoids and paranasal sinuses are clear. CT/Brain/Head without Contrast IMPRESSION: 1. Negative for intracranial hemorrhage or acute parenchymal abnormality. No significant interval change. 2. CT brain without contrast appears normal for age. Individualized dose optimization techniques were used for this CT. at 0225 Reported and signed by: Anthony Motta MD Electronically Signed: Anthony Motta, at 2:24 EDT Tel , Service support ,
[2018-08-17 01:41] LABS: Absolute Lymphocyte Count 0.81 X10^3/ul (0.83-4.51); Basophil# 0.04 X10^3/uL; Basophil% 0.4 % (0-1); Eosinophil# 0.15 X10^3/uL; Eosinophils% 1.5 % (0-5); Hematocrit 44.2 % (40-54); Hemoglobin 14.7 g/dl (13.0-16.5); Lymphocyte # 0.81 X10^3/ul (4.0); Mean Corp Hgb Conc 33.3 g/gl (32-36); Mean Corpuscular Hgb 34.1 pg (27.0-32.0); Mean Corpuscular Volume 102.6 fL (80-94); Mean Platelet Vol. 10.7 fl (6.2-12.0); Monocyte# 1.07 X10^3/uL; Monocyte% 10.5 % (0-10); Neutrophil # 8.01 X10^3/uL (2.7-7.7); Neutrophil % 78.7 % (47-70); Platelet Count 113 K/mm3 (150-450); RBC Distribution Width CV 13.6 % (11.6-14.6); RBC Distribution Width SD 51.5 fl (35.1-43.9); Red Blood Count 4.31 M/mm3 (4.6-6.2); White Blood Count 10.2 K/mm3 (4.4-11.0)
[2018-08-17 01:49] LABS: POSITIVE COUNT NO; POSITIVE DIFFERENTIAL NO; POSITIVE MORPHOLOGY NO
[2018-08-17] MEDS: Ondansetron 4 MG/2 ML Vial IV (01:54)
[2018-08-17 01:55] LABS: Anion Gap 6 (5-15); BUN 17 mg/dL (7-18); BUN/Creat Ratio 13.8 RATIO (10-20); Calcium,Total 8.2 mg/dL (8.5-10.1); Chloride 101 mmol/L (98-107); Creatinine, Serum 1.23 mg/dL (0.70-1.30); EST Glomerular Filtration Rate 62 mL/min (>60); Est Glom Filt Rate - Afr Amer 75 mL/min (>60); Glucose 123 mg/dL (74-106); Potassium 3.9 mmol/L (3.5-5.1); Sodium Level 136 mmol/L (136-145)
[2018-08-17] MEDS: Morphine 4 MG/ML Syringe IV ×2 (01:55→03:56)
--- NOTE | 2018-08-17 02:57 | ED.VISSUMM ---
- ER Visit Summary Date of Service: 08/17/18 Chief Complaint: Seizure History of Present Illness: The patient is a 68 M who presents after a seizure. Patient has a history of post dramatic stress disorder and seizure disorder. He states that he had a seizure today and fell from standing. His last seizure was about 4 days ago. He has been having some chest pain for the past few days as well. He currently complains of neck and lower back pain. Physical Examination: Afebrile vitals stable Multiple abrasions and contusions, abrasion to left scalp, abrasion to right elbow, contusions to left forearm and elbow, Moist mucous membranes Neck in a c-collar Heart regular rate and rhythm Lungs clear Abdomen soft nontender GCS of 15 with no focal or lateralizing neurological deficits moves all 4 extremities Test Results: EKG shows sinus rhythm at a rate of 67. CBC BMP troponin unremarkable. Chest x-ray shows no acute process. CT the head is negative for intracranial hemorrhage. CT of the cervical spine shows acute mildly displaced fracture of the upper C6 vertebral body. No bony retropulsion, spondylolisthesis, or CT findings of instability. Emergency Department Course and Treatment: Work-up as above. While the patient was here he called out from his room that he was having a seizure. I entered the room and he essentially had rhythmic motion moving side to side that did not appear classic for seizure activity. However he did desaturate 85%. Afterwards he was arousable to voice and did not appear to have a postictal phase and was immediately asking for pain medications. He was given morphine and Zofran for pain. I spoke to [facility] who accepted the patient is a trauma transfer. Treatment Plan: [] Disposition: Transfer Impression: C6 fracture Seizure This note was generated with [employer] dictation software. It may contain incorrect words, spelling, and punctuation that were not noted in review of the chart prior to signing ED Disposition - Plan for ED Patient: Referrals: Elijah Mullins DO [Primary Care Provider] -
[2018-08-17 03:27] VITALS: BP 119/73; PULSE 68; RESP 14; O2SAT 95
== END 2018-08-17 04:48 | disposition short-term general hospital (02) ==
LOC: ED 01:30
PROVIDERS: Emergency Provider Emergency Medicine; Family Provider Family Medicine; PCP Family Medicine
DX: S12.500A Unspecified displaced fracture of sixth cervical vertebra, initial encounter for closed fracture (principal); G40.909 Epilepsy, unspecified, not intractable, without status epilepticus; F43.9 Reaction to severe stress, unspecified; W18.30XA Fall on same level, unspecified, initial encounter; I10 Essential (primary) hypertension; E78.00 Pure hypercholesterolemia, unspecified
CPT/HCPCS: 70450; 71045; 72125; 80048; 84484; 85025; 93005; 99285; J7030; A4216; J2405

== ENCOUNTER 2018-10-21 06:48 | Observation (INO) | payer MEDICARE, MEDICAID, SELFPAY ==
[2018-10-21] VITALS (10 sets, daily range): BP systolic 100–132; BP diastolic 50–107; PULSE 55–67; RESP 11–16; TEMP 36.6–37; O2SAT 92–97; BMI 30.1; BMI 29.3
--- NOTE | 2018-10-21 06:59 | CT_ITS ---
STUDY: CT BRAIN WITHOUT CONTRAST REASON FOR EXAM: Male, 68 years old. Seizure activity. RADIATION DOSAGE (If Supplied By Facility): CTDIvol = ( 39.18 ) mGy, DLP = ( 2253.08 ) mGycm TECHNIQUE: Transaxial CT imaging of the brain was performed without administration of intravenous contrast material. Individualized dose optimization techniques were used for this CT. COMPARISON: Comparison is made with prior examination dated August 17, 2018. FINDINGS: Normal soft tissue structures. Normal calvarium. Normal size ventricles and extra-axial spaces for the patient's age. Normal white matter tracts of the cerebral hemispheres. Normal basal ganglia and thalami. Normal brainstem. Normal cerebellum. There is no intracranial hemorrhage. There are no findings of an acute ischemic infarction. Normal visualized paranasal sinuses. CT/Brain/Head without Contrast IMPRESSION: Normal unenhanced CT scan of the brain. Electronically Signed: Sanya Jacome, at 8:29 EDT , Service support ,
--- NOTE | 2018-10-21 06:59 | RAD_ITS ---
STUDY: X-RAY CHEST REASON FOR EXAM: Male, 68 years old. Fall secondary to a seizure. TECHNIQUE: Single AP portable view of the chest. COMPARISON: Comparison is made with prior examination dated August 17, 2018. FINDINGS: EKG electrodes are seen. The lungs are clear and expanded. There is no demonstrated pleural abnormality. There is borderline cardiomegaly. Normal mediastinum and orion. Normal visualized pulmonary arteries. Normal visualized aortic arch and descending thoracic aorta. There are diffuse degenerative changes of the visualized thoracic spine. Normal visualized ribs, clavicles, and shoulders. There is no demonstrated abnormality of the visualized soft tissue structures of the upper abdomen. RAD/Chest 1 View (Portable) IMPRESSION: Borderline cardiomegaly. Electronically Signed: Sanya Jacome, at 7:42 EDT , Service support ,
--- NOTE | 2018-10-21 07:00 | EKG12_ITS ---
Test Reason : SEIZURE/FALL Blood Pressure : / mmHG Vent. Rate : 056 BPM Atrial Rate : 056 BPM P-R Int : 194 ms QRS Dur : 084 ms QT Int : 394 ms P-R-T Axes : 047 -24 000 degrees QTc Int : 380 ms Sinus bradycardia Inferior infarct , age undetermined Abnormal ECG Confirmed by TOMMY XAVIER, NABILA ([id number]), assistant film editor KERI WONG ([id number]) on 10/25/2018 12:56:06 PM Referred By: FLORESITA Confirmed By:ANGY SANDERS MD
--- NOTE | 2018-10-21 07:00 | CT_ITS ---
STUDY: CT CERVICAL SPINE WITHOUT CONTRAST REASON FOR EXAM: Male, 68 years old. Recent fall due to seizure activity. RADIATION DOSAGE (If Supplied By Facility): CTDIvol = ( 39.18 ) mGy, DLP = ( 2253.08 ) mGycm TECHNIQUE: High resolution transaxial imaging was performed without contrast material. Sagittal and coronal images were reconstructed. Individualized dose optimization techniques were used for this CT. COMPARISON: Comparison is made with prior study dated August 17, 2018. FINDINGS: Normal craniovertebral junction. There are degenerative changes of the anterior atlantoaxial articulation. Normal odontoid process. There is straightening of the normal cervical lordosis. Normal vertebral bodies and posterior osseous elements. C2-3: Moderate degree of disc space narrowing. Anterior spondylosis and facet joint osteoarthropathy on the right side. C3-4: Anterior spondylosis. Moderate degree of disc space narrowing. Uncovertebral arthrosis with a moderate degree of bilateral neural foraminal stenosis worse on the right side. C4-5: Moderate degree of disc space narrowing. Anterior spondylosis. Bilateral neural foraminal stenosis secondary to uncovertebral arthrosis worse on the right side. C5-6: Moderate degree of disc space narrowing. Spondylosis. Uncovertebral arthrosis. Since prior study, there has been healing of the fracture involving the upper C6 vertebral body. There is no evidence of displacement. C6-7: Moderate degree of disc space narrowing with spondylosis. C7-T1: Disc space narrowing and spondylosis. Normal visualized soft tissue structures. CT/Spine Cervical without Contras IMPRESSION: Multilevel degenerative changes, as described above. Healing fracture of the superior aspect of the C6 vertebra. Electronically Signed: Sanya Jacome, at 8:32 EDT , Service support ,
--- NOTE | 2018-10-21 07:03 | ED.DCSUM_ITS ---
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 He wants to get checked out. He is complaining of some lower back pain. He has noHeadache, no tongue pain, no shoulder pain he denies any chest pain or abdominal pain. No headache, no tongue pain, no shoulder pain he denies any chest pain or abdominal pain. Past Medical History - Allergies and Home Meds Allergies/Adverse Reactions: Allergies bee pollen Allergy (Severe, Verified 10/21/18 08:34) Anaphylaxis acetaminophen [From Tylenol] Adverse Reaction (Severe, Verified 10/21/18 08:34) Hives itch amlodipine besylate [From Norvasc] Adverse Reaction (Severe, Verified 10/21/18 08:34) Upset Stomach cephalexin [From Keflex] Adverse Reaction (Severe, Verified 10/21/18 08:34) Hives mental change latex Adverse Reaction (Severe, Verified 10/21/18 08:34) Rash phenytoin sodium [From Dilantin] Adverse Reaction (Severe, Verified 10/21/18 08:34) Hives At doses of higher than 100 mg phenytoin sodium extended [From Dilantin] Adverse Reaction (Severe, Verified 10/21/18 08:34) Hives At doses of higher than 100 mg sesame oil Adverse Reaction (Severe, Verified 10/21/18 08:34) Upset Stomach carbamazepine [From Tegretol] Adverse Reaction (Mild, Verified 10/21/18 08:34) Hives sucralfate [From Carafate] Adverse Reaction (Mild, Verified 10/21/18 08:34) Hives Sulfa (Sulfonamide Antibiotics) Adverse Reaction (Verified 10/21/18 08:34) Unknown Primary Care Physician: Elijah Mullins DO [Primary Care Provider] - Prior records reviewed: Yes Past Medical History: - - Complex medical history including seizures. Nursing notes reviewed Surgical History: cholecystectomy Lives: Alone Smoking Status: Former smoker - Family History Maternal Family History: Family History (Last Reviewed 01/18/18 @ 15:11 by Gabriella Cervantes) Mother Hypertension CAD (coronary artery disease) Father Cancer Family History: Reports: No pertinent history Review of Systems All systems negative except as indicated General: Denies: Chills Eyes: Denies: Blurred vision - left, Blurred vision - right Cardiovascular: Denies: Chest pain Respiratory: Denies: Dyspnea, Cough Gastrointestinal: Denies: Abdominal pain, Nausea, Vomiting Genitourinary: Denies: Dysuria Musculoskeletal: Reports: Neck pain, Back pain Skin: Denies: Abrasions Neurological: Denies: Headache, Weakness Hematologic: Denies: Easy bleeding Physical Exam Vital Signs/Narrative: Vital Signs Temp Pulse Resp BP Pulse Ox 10/21/18 06:49 98 F 65 16 106/50 L 92 Inital Vital Signs reviewed: Yes General: No Acute Distress Head: Normocephalic, Atraumatic Eyes: Negative for: Pale conjunctiva ENT: Dry mucous membranes Neck: - - Diffuse C-spine tenderness c-collar intact Cardiovascular: Regular rate, Regular rhythm Respiratory: No distress, CTA bilaterally Abdomen: Soft, Nontender Back: - - Diffuse lumbar tenderness. Extremities: Nontender, No edema Skin: Normal color, No rash. Negative for: Trauma Neurological: Alert, Oriented x3 Psychological: Normal affect Diagnostic/Tx/Re-eval - Rhythm Strip Rhythm Strip: Sinus Rhythm Rate: 56 Ectopy: None - EKG Initial EKG Interpretation: Sinus Rhythm, No Acute Injury Pattern, Non-Specific ST Changes, - - Normal GA and QTc intervals. Interpreted by emergency doctor Prior: Unchanged - Medical Decision Making Patient had an unremarkable ED work-up, however unfortunately he had to further seizures that were witnessed. These appeared like generalized tonic-clonic but they could have been partial complex seizures since the postictal period was quite short. Ativan was given. He lives alone, has had multiple seizures today at least 4, I will admit for observation. Disposition admit in guarded condition ED Disposition - Plan for ED Patient: Diagnosis: Breakthrough seizure Referrals: Elijah Mullins DO [Primary Care Provider] -
[2018-10-21 07:21] LABS: Absolute Lymphocyte Count 1.06 X10^3/uL (0.83-4.51); Absolute Neutrophil Count 5.9 X10^3/uL (2.0-7.7); Basophil# 0.07 X10^3/uL; Basophil% 0.8 % (0-1); Eosinophil# 0.18 X10^3/uL; Eosinophils% 2.2 % (0-5); Hemoglobin 15.7 g/dL (13.0-16.5); Lymphocyte # 1.06 X10^3/ul (4.0); Lymphocyte % 12.7 % (19-41); Mean Corp Hgb Conc 32.7 g/dL (32-36); Mean Corpuscular Hgb 33.5 pg (27.0-32.0); Mean Corpuscular Volume 102.6 fL (80-94); Mean Platelet Vol. 9.7 fl (6.2-12.0); Monocyte# 0.94 X10^3/uL; Monocyte% 11.3 % (0-10); NRBC Flagged by Analyzer 0 % (0-5); Neutrophil % 70.8 % (47-70); Platelet Count 135 K/mm3 (150-450); RBC Distribution Width CV 13.2 % (11.6-14.6); RBC Distribution Width SD 50.4 fl (35.1-43.9); Red Blood Count 4.68 M/mm3 (4.6-6.2); White Blood Count 8.3 K/mm3 (4.4-11.0)
[2018-10-21 07:29] LABS: ALB/GLOB Ratio 1.1 RATIO (0.9-2.4); AST(SGOT) 16 U/L (15-37); Alanine Aminotransfer ALT/SGPT 31 U/L (16-61); Albumin, Serum 3.5 g/dL (3.2-5.0); Alkaline Phosphatase 88 U/L (45-117); Anion Gap 5 (5-15); BUN 13 mg/dL (7-18); BUN/Creat Ratio 10.9 RATIO (10-20); Chloride 105 mmol/L (98-107); Creatinine, Serum 1.19 mg/dL (0.70-1.30); EST Glomerular Filtration Rate 64 mL/min (>60); Est Glom Filt Rate - Afr Amer 78 mL/min (>60); Estimated Creatinine Clearance 59.64 ml/min; Globulin 3.3 g/dL (2.2-4.2); Glucose 147 mg/dL (74-106); Potassium 3.5 mmol/L (3.5-5.1); Protein, Total 6.8 g/dL (6.4-8.2); Sodium Level 140 mmol/L (136-145)
[2018-10-21] MEDS: LORazepam 2 MG/ML Syringe 1 MG IV (08:29)
[2018-10-21] MEDS: levETIRAcetam IV 1,000 MG/100 ML BAG 400 MG IV (08:41)
[2018-10-21] MEDS: Ondansetron 4 MG/2 ML Vial IV (08:41)
[2018-10-21] MEDS: Morphine 4 MG/ML Syringe IV ×2 (08:41→23:41)
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
--- NOTE | 2018-10-21 08:47 | ED.RN ---
PT STATES HIS SEIZURES ARE BROUGHT ON BY PAIN.
--- NOTE | 2018-10-21 09:23 | MRI_ITS ---
STUDY: MRI BRAIN WITH AND WITHOUT CONTRAST REASON FOR EXAM: Male, 68 years old. Syncope, seizure TECHNIQUE: Standardized multiplanar fat and water weighted pulse sequences were obtained. 19 IV Dotarem was administered for the contrast portion of the examination. COMPARISON: CT earlier today, MR 11/15/2017 FINDINGS: Normal size of the ventricles and extra-axial spaces for the patient's age. Normal white matter tracts of the supratentorial brain. There is no evidence for recent intracranial ischemia or other cause of cytotoxic edema on diffusion weighted imaging (DWI). Normal T2* images of the brain without demonstrated susceptibility artifact. There is no demonstrated hemosiderin stain. Normal bilateral basal ganglia. Normal thalami. There is no extra-axial fluid accumulation. Normal flow voids within the major intracranial circulation suggesting patency by spin echo criteria. Normal venous enhancement. There is no enhancing intra-axial or extra-axial abnormality. Normal sella turcica, pituitary gland, infundibular stalk, optic chiasm and hypothalamus. Normal tectal plate and pineal gland. Normal midbrain, angelica and medulla. Normal cerebellum. Normal basal cisterns. Normal bilateral temporal bones. Normal bilateral internal auditory canals. No demonstrated orbital abnormality, within the constraints of a routine brain study. Normal visualized paranasal sinuses. Normal calvarium and skull base. Normal visualized soft tissue structures. Normal visualized upper cervical spine. MRI/Brain W/WO Contrast IMPRESSION: Normal unenhanced and enhanced MRI of the brain. Electronically Signed: Kenny Vaca MD at 12:49 EDT Tel , Service support ,
[2018-10-21] MEDS: oxyCODONE 5 MG Tablet 10 MG PO ×2 (10:02→20:41)
[2018-10-21] MEDS: Isosorbide DN 30 MG Tablet PO (14:11)
[2018-10-21] MEDS: Clopidogrel Bisulfate 75 MG Tablet PO (14:11)
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
--- NOTE | 2018-10-21 14:30 | CASEMGMT ---
Addendum entered by Antonia Chapa 10/21/18 14:38: SW spoke w/RN, pharmacy can now get the needed meds for the pt. WICHO Hatfield Original Note: As per RN, pt is on a med from home that cannot be attained here. She called pt's brother and has not been able to reach him. SW called [facility], as pt's aide services are through this agency, they do not have any additional numbers for pt's brother. Their staff is not allowed to go to the home when pt is not there. Pt is current w/[employer], Jaylyn is acting at pt's case fitter while his regular case fitter is out on maternity leave. SW attempted to call Jaylyn([phone]), got her voice mail so SW called the coverage line for [facility]. Pt has [facility] 1 hr/week nursing for injections, and 13 hours/week for personal care. Pt has a med machine and a life line Button. [facility] did have numbers for pt's sisters, Niharika Crabtree([phone]) and Sarah Barros([phone]). LAVERNE will pass these numbers on to the nurse. WICHO Hatfield
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
[2018-10-21] MEDS: Atorvastatin Calcium 10 MG Tablet PO (22:15)
[2018-10-21] MEDS: ALPRAZolam 0.5 MG Tablet 2 MG PO (22:17)
[2018-10-22] VITALS (11 sets, daily range): BP systolic 99–118; BP diastolic 60–74; PULSE 57–71; RESP 13–18; TEMP 36.7–37.3; O2SAT 92–96
[2018-10-22] MEDS: Enoxaparin 40 MG/0.4 ML Syringe SC (06:25)
[2018-10-22] MEDS: oxyCODONE 5 MG Tablet 10 MG PO ×3 (06:56→22:36)
[2018-10-22 07:27] LABS: Absolute Lymphocyte Count 1.42 X10^3/uL (0.83-4.51); Absolute Neutrophil Count 5.9 X10^3/uL (2.0-7.7); Basophil# 0.07 X10^3/uL; Basophil% 0.8 % (0-1); Eosinophil# 0.24 X10^3/uL; Eosinophils% 2.7 % (0-5); Hematocrit 49.4 % (40-54); Lymphocyte # 1.42 X10^3/ul (4.0); Lymphocyte % 16.1 % (19-41); Mean Corp Hgb Conc 32.4 g/dL (32-36); Mean Corpuscular Hgb 33.8 pg (27.0-32.0); Mean Corpuscular Volume 104.2 fL (80-94); Monocyte# 1.07 X10^3/uL; Monocyte% 12.1 % (0-10); NRBC Flagged by Analyzer 0 % (0-5); Neutrophil # 5.91 X10^3/uL (2.7-7.7); Neutrophil % 66.8 % (47-70); Platelet Count 130 K/mm3 (150-450); RBC Distribution Width CV 13.3 % (11.6-14.6); RBC Distribution Width SD 51.6 fl (35.1-43.9); Red Blood Count 4.74 M/mm3 (4.6-6.2); White Blood Count 8.8 K/mm3 (4.4-11.0)
[2018-10-22 07:56] LABS: Anion Gap 4 (5-15); BUN 10 mg/dL (7-18); BUN/Creat Ratio 8.8 RATIO (10-20); Calcium,Total 8.7 mg/dL (8.5-10.1); Chloride 107 mmol/L (98-107); Creatinine, Serum 1.14 mg/dL (0.70-1.30); EST Glomerular Filtration Rate 67 mL/min (>60); Est Glom Filt Rate - Afr Amer 82 mL/min (>60); Estimated Creatinine Clearance 62.26 ml/min; Glucose 74 mg/dL (74-106); Potassium 4.3 mmol/L (3.5-5.1); Sodium Level 141 mmol/L (136-145)
--- NOTE | 2018-10-22 08:52 | PCM.PN.HOSP ---
Patient Problems: Active and Suspected Problems (Last Reviewed 10/21/18 @ 10:44 by Jt Lindsay MD) Breakthrough seizure (Acute) Subjective: Was documentation of patient having experienced questionable seizure during the night. Keppra was added to patient treatment regimen by neurology. MRI was unremarkable. Patient undergoing EEG this a.m. Objective: GENERAL: cooperative HEENT: Neck in the c-collar EYES; Anicteric, Normal Conjunctiva NECK; supple, normal thyroid, RESPIRATORY: Diminished to auscultation CARDIOVASCULAR: Regular S1 S2, GI: soft, non-tender, normoactive bowel sounds, : No Renal angle tenderness; EXTREMITIES: No edema, no clubbing, MUSCULOSKELETAL: No Joint Tenderness; NEURO: Awake; no lateralizing signs. SKIN: No Rash PSYCH; Normal affect Vitals/I&O's: Vital Signs Temp Pulse Resp BP Pulse Ox 98.8 F 59 L 13 101/64 93 10/22/18 04:16 10/22/18 06:57 10/22/18 06:52 10/22/18 06:52 10/22/18 04:16 Oxygen Delivery Method Room Air Weight: 92.7 kg Body Mass Index (BMI) 29.3 Finger Stick Blood Glucose 74 Intake and Output for Last 24 Hours 10/20/18 10/21/18 10/22/18 23:59 23:59 23:59 Intake Total 548 / 548 150 / 150 Output Total 300 / 300 Balance 248 / 248 150 / 150 Laboratory Results 10/21/18 16:05: Phenobarbital 52.6 H* 10/22/18 07:14: WBC 8.8, RBC 4.74, Hgb 16.0, Hct 49.4, MCV 104.2 H, MCH 33.8 H, MCHC 32.4, RDW Std Deviation 51.6 H, RDW Coeff of Frantz 13.3, Plt Count 130 L, MPV 10.0, Immature Gran % (Auto) 1.500 H, Neut % (Auto) 66.8, Lymph % (Auto) 16.1 L, [place] % (Auto) 12.1 H, Eos % (Auto) 2.7, Baso % (Auto) 0.8, Absolute Neuts (auto) 5.9, Absolute Lymphs (auto) 1.42, Nucleated RBC % 0 10/22/18 07:14: Sodium 141, Potassium 4.3, Chloride 107, Carbon Dioxide 30.0, Anion Gap 4 L, BUN 10, Creatinine 1.14, Estim Creat Clear Calc 62.26, Est GFR (MDRD) Af Amer 82, Est GFR (MDRD) Non-Af 67, BUN/Creatinine Ratio 8.8 L, Glucose 74, Calcium 8.7 10/22/18 07:14: Phenobarbital 51.6 H* Current Medications Al Hydroxide/Mg Hydroxide (Mylanta Ii) 30 ml PO Q6H PRN PRN PRN Reason: Gastric Burning Albuterol Sulfate (Ventolin Aerosols) 2.5 mg INHALATION Q4H PRN PRN PRN Reason: shortness of breath or wheezing Alprazolam (Xanax) 2 mg PO QHS COUNTS INCLUDE 234 BEDS AT THE [facility] Last Admin: 10/21/18 22:17 Dose: 2 mg Documented by: Ascorbic Acid (Vitamin C) 500 mg PO DAILY@0800 COUNTS INCLUDE 234 BEDS AT THE [facility] Aspirin (Aspirin, Baby) 81 mg PO DAILY@0800 COUNTS INCLUDE 234 BEDS AT THE [facility] Atorvastatin Calcium (Lipitor) 10 mg PO QHS COUNTS INCLUDE 234 BEDS AT THE [facility] Last Admin: 10/21/18 22:15 Dose: 10 mg Documented by: Cholecalciferol (Vitamin D) 5,000 unit PO Mo@1000 COUNTS INCLUDE 234 BEDS AT THE [facility] Clopidogrel Bisulfate (Plavix) 75 mg PO DAILY COUNTS INCLUDE 234 BEDS AT THE [facility] Last Admin: 10/21/18 14:11 Dose: 75 mg Documented by: Enoxaparin Sodium (Lovenox) 40 mg SC DAILY@0600 COUNTS INCLUDE 234 BEDS AT THE [facility] Last Admin: 10/22/18 06:25 Dose: 40 mg Documented by: Guaifenesin (Robitussin) 20 ml PO Q4H PRN PRN PRN Reason: COUGH Hydrochlorothiazide () 12.5 mg PO DAILY COUNTS INCLUDE 234 BEDS AT THE [facility] Levetiracetam 500 mg/ Sodium (Chloride) 105 mls @ 400 mls/hr IV Q12 COUNTS INCLUDE 234 BEDS AT THE [facility] Last Admin: 10/21/18 21:58 Dose: 400 mls/hr Documented by: Ibuprofen (Motrin) 400 mg PO Q4H PRN PRN PRN Reason: Mild Pain (1-3)/Temp > 100.7 F Isosorbide Dinitrate (Isordil) 30 mg PO DAILY COUNTS INCLUDE 234 BEDS AT THE [facility] Last Admin: 10/21/18 14:11 Dose: 30 mg Documented by: Lorazepam (Ativan) 1 mg IV Q4H PRN PRN PRN Reason: SEIZURES Magnesium Hydroxide (Milk Of Magnesia) 30 ml PO DAILY PRN PRN PRN Reason: Constipation Melatonin (Melatonin) 3 mg PO QHS PRN PRN PRN Reason: INSOMNIA Metoprolol Succinate (Toprol Xl (Beta Dorota)) 50 mg PO DAILY COUNTS INCLUDE 234 BEDS AT THE [facility] Montelukast Sodium (Singulair) 10 mg PO DAILY@2100 COUNTS INCLUDE 234 BEDS AT THE [facility] Morphine Sulfate () 4 mg IV Q4H PRN PRN PRN Reason: SEVERE PAIN (6-10/10) Last Admin: 10/21/18 23:41 Dose: 4 mg Documented by: Multivitamins (Allbee W/C Caplet, Thera B Comp/C) 1 capsule PO DAILY@0800 COUNTS INCLUDE 234 BEDS AT THE [facility] Nitroglycerin (Nitrostat) 0.4 mg SUBLINGUAL Q5M PRN PRN Reason: Chest Pain Ondansetron HCl (Zofran) 4 mg IV Q8H PRN PRN PRN Reason: NAUSEA/VOMITING Oxycodone HCl (Oxyir) 10 mg PO Q4H PRN PRN PRN Reason: Moderate Pain (4-6/10) Last Admin: 10/22/18 06:56 Dose: 10 mg Documented by: Phenobarbital (Phenobarbital) 32.4 mg PO TID@0800,1800,2100 COUNTS INCLUDE 234 BEDS AT THE [facility] Last Admin: 10/21/18 18:22 Dose: Not Given Documented by: Phenobarbital (Phenobarbital) 64.8 mg PO 0800,2100 COUNTS INCLUDE 234 BEDS AT THE [facility] Last Admin: 10/21/18 18:23 Dose: Not Given Documented by: Prazosin HCl (Minipress) 1 mg PO QHS COUNTS INCLUDE 234 BEDS AT THE [facility] Promethazine HCl (Phenergan) 25 mg IM Q6H PRN PRN PRN Reason: Breakthrough nausea/vomiting Tiagabine HCl (Gabitril) 4 mg PO 4X/DAY COUNTS INCLUDE 234 BEDS AT THE [facility] Last Admin: 10/21/18 22:16 Dose: 4 mg Documented by: Medical Necessity - Tobacco Use Smoking Status: Former smoker Assessment/Plan All Active Problems (Last Reviewed 10/21/18 @ 10:44 by Jt Lindsay MD) Breakthrough seizure (Acute) History of cholecystectomy (Resolved) History of transurethral resection of prostate (Resolved) History of appendectomy (Resolved) History of cardiac catheterization (Resolved) Vertigo (Resolved) Hyponatremia (Resolved) Angina at rest (Resolved) Hernia (Resolved) Muscle weakness of left arm (Resolved) Paresthesia of left arm (Resolved) Syncope (Resolved) The patient is a 68 year old M who comorbidities including seizure disorder, recent cervical spine fracture currently in a c-collar who presented to the emergency department after breakthrough seizure. Patient states he was able to activate his medical alert resulting in EMS showing up. He was transported to the emergency department and admitted for subsequent management further questioning edition denied being incontinent of urine no stool. CT of the head obtained was reported as being normal unenhanced. Cervical spine CT demonstrated a healing fracture of the superior aspect of the C6 vertebra. 1. Seizure disorder with breakthrough seizure. Patient has been admitted to regular nursing floor. Did continue with patient home medications, instituted seizure precautions and consultation placed to neurology. As part of patient evaluation ordered MRI for subsequent management with MRI was unremarkable. Patient was seen by Dr. Santana with neurology added Floyd to patient treatment regimen. 2. Coronary artery disease with previous PCI patient is on recommended medication holding aspirin and Plavix as well as statin therapies and beta-blockers 3. Recent trauma with C6 vertebral fracture patient is in a c-collar did request for PT OT eval 4. Dyslipidemia-patient is on statin therapy, continued at home dose 5. Hypertension-blood pressure controlled, home medications continued with dose adjustment as needed 6. BPH; currently asymptomatic 7. GERD is to treat symptomatically 8. PTSD Xanax as needed 9. DVT prophylaxis: Lovenox Code Visit OBSV E&M: 76549 Subsequent observation care L3
--- NOTE | 2018-10-22 09:04 | EEG_ITS ---
- Electroencephalogram Date of service 10/22/2018 History EEG is being done in this 68 yr M to rule out seizures EEG Description: This is an 18 channel EEG with 10-20 lead placement system. Bipolar montages, and Referential montages were reviewed. Photic stimulation was performed and Hyperventilation was attempted but patient could not perform per tech docu mentation. The posterior dominant rhythm is 9 HZ synchronous, symmetric, reacting to eye opening and closing. Photo stimulation elicited normal driving response but no abnormal photoparoxysmal response, Hyperventilation was attempted but patient could not perform HV per tech documentation. Drowsiness was identified. There is no abnormal background slowing noted. There was no epileptiform discharges or electrographic seizures noted during this recording. EKG artefact noted during the record. EEG Interpretation This is a normal awake and drowsy EEG. There is no epileptiform discharges or electrographic seizures noted during the record.
--- NOTE | 2018-10-22 09:45 | NURSING ---
Fabiola from [facility] called to request new orders and DC information be faxed to her upon patient's discharge. fax number is
--- NOTE | 2018-10-22 10:08 | PN.NEURO_ITS ---
Patient Problems: Active and Suspected Problems (Last Reviewed 10/21/18 @ 10:44 by Jt Lindsay MD) Breakthrough seizure (Acute) Subjective: No issues overnight. MRI brain nothing acute, EEG normal - Physical Exam General: Alert, - - Sitting in a chair with cervical collar HEENT: Normocephalic Neck: Supple Lungs: Normal air movement Cardiovascular: Normal S1, Normal S2 Abdomen: Bowel Sounds Present Extremities: No cyanosis Neurological: - - Awake, sitting in a chair with a cervical collar, CN II through XII grossly intact, power 5/5 both UE/LE, no sensory loss, no cerebellar signs, Reflexes + B/L B/S/T/K/A, gait deferred. Psych/Mental Status: Normal Affect Vital Signs Temp Pulse Resp BP Pulse Ox 98.8 F 59 L 13 101/64 93 10/22/18 04:16 10/22/18 06:57 10/22/18 06:52 10/22/18 06:52 10/22/18 04:16 Oxygen Delivery Method Room Air Weight: 92.7 kg Body Mass Index (BMI) 29.3 Finger Stick Blood Glucose 74 Intake and Output for Last 24 Hours 10/20/18 10/21/18 10/22/18 23:59 23:59 23:59 Intake Total 548 / 548 150 / 150 Output Total 300 / 300 Balance 248 / 248 150 / 150 Laboratory Tests Past 24 Hrs 10/21/18 10/22/18 10/22/18 16:05 07:14 07:14 WBC 8.8 RBC 4.74 Hgb 16.0 Hct 49.4 MCV 104.2 H MCH 33.8 H MCHC 32.4 RDW Std Deviation 51.6 H RDW Coeff of Frantz 13.3 Plt Count 130 L MPV 10.0 Immature Gran % (Auto) 1.500 H Neut % (Auto) 66.8 Lymph % (Auto) 16.1 L Thomas % (Auto) 12.1 H Eos % (Auto) 2.7 Baso % (Auto) 0.8 Absolute Neuts (auto) 5.9 Absolute Lymphs (auto) 1.42 Nucleated RBC % 0 Sodium 141 Potassium 4.3 Chloride 107 Carbon Dioxide 30.0 Anion Gap 4 L BUN 10 Creatinine 1.14 Estim Creat Clear Calc 62.26 Est GFR (MDRD) Af Amer 82 Est GFR (MDRD) Non-Af 67 BUN/Creatinine Ratio 8.8 L Glucose 74 Calcium 8.7 Phenobarbital 52.6 H* 10/22/18 07:14 WBC RBC Hgb Hct MCV MCH MCHC RDW Std Deviation RDW Coeff of Frantz Plt Count MPV Immature Gran % (Auto) Neut % (Auto) Lymph % (Auto) Thomas % (Auto) Eos % (Auto) Baso % (Auto) Absolute Neuts (auto) Absolute Lymphs (auto) Nucleated RBC % Sodium Potassium Chloride Carbon Dioxide Anion Gap BUN Creatinine Estim Creat Clear Calc Est GFR (MDRD) Af Amer Est GFR (MDRD) Non-Af BUN/Creatinine Ratio Glucose Calcium Phenobarbital 51.6 H* Medical Necessity - Tobacco Use Smoking Status: Former smoker Assessment/Plan All Active Problems (Last Reviewed 10/21/18 @ 10:44 by Jt Lindsay MD) Breakthrough seizure (Acute) History of cholecystectomy (Resolved) History of transurethral resection of prostate (Resolved) History of appendectomy (Resolved) History of cardiac catheterization (Resolved) Vertigo (Resolved) Hyponatremia (Resolved) Angina at rest (Resolved) Hernia (Resolved) Muscle weakness of left arm (Resolved) Paresthesia of left arm (Resolved) Syncope (Resolved) The patient is a 68 year old M with PMH HTN, HLD, seizures, CAD, polycythemia, PTSD, chronic respiratory failure, CKD, recent C6 fracture in August 2018 in C- collar, BPH admitted with possible breakthrough seizures. Patient is a poor historian, history is obtained from patient and from medical records. Per documentation patient thought he had seizures and had pressed life alert and was brought to the ED and per ED documentation he was witnessed to have possible generalized tonic-clonic seizures in the ED was loaded with 1 g of Keppra. At present patient denies missing the doses of phenobarbital, is also on tiagabine for seizures. Per documentation he had a breakthrough seizure in April 2018 when he had missed his dose of phenobarbital probably, but per patient he had a last seizure about 2 years ago prior to this one. Per documentation he started having seizures since 1987, he gets nightmares about the war and then he would have seizures per patient. He is unable to give a clear seizure characterization at present. Per patient he has been on phenobarbital 64.8 mg PO BID and 32.4 mg PO TID at baseline. At present patient denies any VIRGEN, visual disturbances, sensory loss, speech disturbances, focal motor weakness or dizziness. MRI brain w/o contrast done on admission reported to be normal. Per patient he lives alone, does drive, uses a Rollator and denies any frequent falls. Per patient he had a fall a couple of months ago and had a cervical C6 fracture and was admitted to [facility] for further evaluation and management at that time. No records available. CT head done during the admission was reported unremarkable, CT C-spine done during this admission reported to show healing fracture of the superior aspect of the C6 vertebra. Impression Possible breakthrough seizures Plan ?MRI brain?nothing acute ?EEG?no epileptiform discharges or or electrographic seizures. ?Was loaded with Keppra 1 g IV in the ED, started Keppra 500 mg IV twice daily. Side effects discussed with the patient ?Change to phenobarbital to 97.2 mg p.o.twice daily (64.8 mg +32.4 mg PO BID). Discontinue phenobarbital 32.4 mg after noon dosing given high phenobarbital level. ?On Gabitril. Continue the home dosage of Gabitril ?Phenobarbital level-51.6 (high)-range 10-40. Repeat phenobarbital level in 1 month ?UA-p, LFT?AST/ALT? ?Labs reviewed ?Seizure precautions discussed in detail ?Patient counseled not to drive for 6 months after the last seizure ?PT/OT ?Fall precautions ?Further management of C6 vertebral fracture per neurosurgery recommendation ?Per patient he follows up with Dr. Morales neurology as outpatient ?Further medical management per hospitalist team ?Please call with questions if any ?Follow-up with Dr. Morales as outpatient in 2-3 weeks ?Thank you for allowing us to participate in patient's care and management This note has been generated using [employer] dictation software. It may contain incorrect words, spellings and punctuation that were not noted in the review of the note prior to signing.
--- NOTE | 2018-10-22 10:14 | CASEMGMT ---
SW spoke w/pt's registered nurse hh case manager Jaylyn from [facility], let her know pt is still here, we do not know yet when pt will be discharged. WICHO Hatfield
[2018-10-22] MEDS: Vitamin B Comp W-C Capsule 1 CAP PO (10:51)
[2018-10-22] MEDS: Aspirin 81 MG TAB.CHEW PO (10:51)
[2018-10-22] MEDS: Clopidogrel Bisulfate 75 MG Tablet PO (10:52)
[2018-10-22] MEDS: Ascorbic Acid 500 MG Tablet PO (10:52)
[2018-10-22] MEDS: Metoprolol(XL)Succ 50 MG Tablet PO (10:53)
[2018-10-22] MEDS: hydroCHLOROthiazide 12.5mg 12.5 MG PO (10:55)
[2018-10-22] MEDS: Isosorbide DN 30 MG Tablet PO (11:03)
[2018-10-22] MEDS: Phenobarbital 32.4 MG Tablet 97.2 MG PO ×2 (13:57→20:06)
--- NOTE | 2018-10-22 15:57 | PCM.DC ---
- Discharge Diagnoses Current Active Problems: Current Active and Chronic Problems (Last Reviewed 10/21/18 @ 10:44 by Jt Lindsay MD) Breakthrough seizure (Acute) You will use the following diet at home:: No restrictions Discharge Activity: - - DO NOT DRIVE Allergies/Adverse Reactions: Allergies bee pollen Allergy (Severe, Verified 10/21/18 08:34) Anaphylaxis acetaminophen [From Tylenol] Adverse Reaction (Severe, Verified 10/21/18 08:34) Hives itch amlodipine besylate [From Norvasc] Adverse Reaction (Severe, Verified 10/21/18 08:34) Upset Stomach cephalexin [From Keflex] Adverse Reaction (Severe, Verified 10/21/18 08:34) Hives mental change latex Adverse Reaction (Severe, Verified 10/21/18 08:34) Rash phenytoin sodium [From Dilantin] Adverse Reaction (Severe, Verified 10/21/18 08:34) Hives At doses of higher than 100 mg phenytoin sodium extended [From Dilantin] Adverse Reaction (Severe, Verified 10/21/18 08:34) Hives At doses of higher than 100 mg sesame oil Adverse Reaction (Severe, Verified 10/21/18 08:34) Upset Stomach carbamazepine [From Tegretol] Adverse Reaction (Mild, Verified 10/21/18 08:34) Hives sucralfate [From Carafate] Adverse Reaction (Mild, Verified 10/21/18 08:34) Hives Sulfa (Sulfonamide Antibiotics) Adverse Reaction (Verified 10/21/18 08:34) Unknown Medications to take at Discharge Clopidogrel Bisulfate [Plavix] 75 mg PO DAILY 03/03/14 Aspirin [Aspirin, Baby] 81 mg PO DAILY@0800 05/04/14 Nitroglycerin (INPATIENT USE) [Nitrostat] 0.4 mg SUBLINGUAL Q5M PRN 05/04/14 [place]-3 Fatty Acids/Fish Oil [[place] 3 Fish Oil Softgel] 1 ea PO DAILY 05/04/14 Ascorbic Acid [Vitamin C] 500 mg PO DAILY@0800 04/03/15 Testosterone Cypionate [Depo-Testosterone] 2 mg IM QWEEK 04/03/15 traZODone [Desyrel] 100 mg PO QHS 04/03/15 Epi Pen (for allergic rxn) 0.3 mg IM X1 PRN 02/11/16 Cholecalciferol (Vitamin D3) [Vitamin D3] 5,000 unit PO QWEEK 09/16/16 Tiagabine HCl [Gabitril] 4 mg PO 4X/DAY 01/12/17 albuterol sulfate HFA 90 mcg/actuation aerosol inhaler 2 puff INHALATION Q4H PRN g 03/05/17 Oxycodone HCl/Acetaminophen [Percocet 10-325 mg Tablet] 1 tab PO Q8H PRN PRN 06/15/17 Isosorbide Dinitrate 30 mg PO DAILY 01/07/18 Vitamin B Complex [Balanced B-50] 1 each PO DAILY 01/19/18 ALPRAZolam [Xanax] 2 mg PO QHS 02/13/18 Simvastatin [Zocor] 20 mg PO QHS 02/13/18 Phenobarbital 64.8 mg PO BID 05/03/18 Azelastine HCl [Astelin] 2 spray NASAL BID 10/21/18 Brimonidine Tartrate [Alphagan P] 1 drp EACHEYE BID 10/21/18 Diazepam 10 mg PO TID 10/21/18 Latanoprost 0.005% [Xalatan Opthalmic] 1 drp EACH EYE QHS 10/21/18 Levetiracetam [Keppra] 500 mg PO BID #120 tab 10/22/18 Phenobarbital 32.4 mg PO BID #0 10/22/18 The following prescriptions were given: Levetiracetam [Keppra] 500 mg PO BID #120 tab Transmission Status: Pending to [facility] Primary Care Physician: Elijah Mullins DO [Primary Care Provider] - Please follow up with your Primary Care Physician in: IN 5-7 DAYS Test Results: Test results from this visit will be discussed in further detail at your follow-up appointment, if applicable. Please Follow Up With: Scott Morales MD When: IN 2-3 WEEKS Proposed Discharge Date: 10/22/18
--- NOTE | 2018-10-22 16:00 | CASEMGMT ---
Addendum entered by Elaine Sharma 10/22/18 16:49: While this RN CM at bedside with LAMBERT, pt mentioned that he does have C set up with [facility] for jail and aides. Call to [facility] to notify and advise of discharge. D/C summ/instructions and H&P faxed to [facility] at this time. Keila at [facility] states jail will eval for PT/OT as pt has consistently declined it in the past. Terrence WAN CM Addendum entered by Elaine Sharma 10/22/18 16:22: This RN CM to room with LAMBERT form at this time, explanation done-pt voices understanding, and signs LAMBERT form at this time. Pt voices no further questions/concerns/needs at this time. Original to chart and copy to pt at this time. Terrence WAN CM Original Note: Therapy is recommending further additional therapy and states pt only ambulated about 30ft with min assist of 2. Pt is A/Ox4 at this time. This RN CM to room to discuss discharge plan and pt declines SNF at this time. Pt states he wants to go home and he plans on going to [place] to start working out to get stronger. Pt states no concerns with living alone at home. Pt was provided with in-network SNF list at this time. Pt voices no further questions/concerns/needs at this time. Pt is just anxious to leave and would like to be discharged. Dr. Lindsay aware at this time. Terrence WAN CM
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
--- NOTE | 2018-10-22 17:57 | NURSING ---
spoke with brother- concerned patient has been falling at home concerned he has kash taking too much meds- Let him talk to social psychologist
--- NOTE | 2018-10-22 19:29 | PCM.PN.BLA ---
Progress Note Hospitalist paged at 7:30 PM by nurse because she did not think patient was fit to go home. Patient has been lethargic and very weak and patient himself states that he feels too weak to go home and does not think he can take care of himself. Per review of discharge summary, patient had refused to go to a intermediate as recommended by PT OT. In light of above, discharge canceled.
[2018-10-22] MEDS: Montelukast 10 MG Tablet PO (20:07)
[2018-10-22] MEDS: Atorvastatin Calcium 10 MG Tablet PO (22:31)
[2018-10-22] MEDS: ALPRAZolam 0.5 MG Tablet 2 MG PO (22:31)
[2018-10-23] VITALS (11 sets, daily range): BP systolic 101–151; BP diastolic 70–73; PULSE 59–109; RESP 14–18; TEMP 36.4–37.4; O2SAT 92–96
[2018-10-23] MEDS: Enoxaparin 40 MG/0.4 ML Syringe SC ×2 (05:09→10:21)
--- NOTE | 2018-10-23 07:33 | PN_ITS ---
Patient Problems: Active and Suspected Problems (Last Reviewed 10/21/18 @ 10:44 by Jt Lindsay MD) Breakthrough seizure (Acute) Subjective: Patient apparently declined going home after insistent on being discharged. Had an extensive discussion with the patient this a.m. regarding possible transfer to a correction facility he again declined and insisted on being discharged home. Objective: GENERAL: cooperative HEENT: Neck in the c-collar EYES; Anicteric, Normal Conjunctiva NECK; supple, normal thyroid, RESPIRATORY: Diminished to auscultation CARDIOVASCULAR: Regular S1 S2, GI: soft, non-tender, normoactive bowel sounds, : No Renal angle tenderness; EXTREMITIES: No edema, no clubbing, MUSCULOSKELETAL: No Joint Tenderness; NEURO: Awake; no lateralizing signs. SKIN: No Rash PSYCH; Normal affect Vitals/I&O's: Vital Signs Temp Pulse Resp BP Pulse Ox 97.6 F L 59 L 18 151/73 H 96 10/23/18 04:20 10/23/18 04:20 10/23/18 04:20 10/23/18 04:20 10/23/18 04:20 Oxygen Delivery Method Room Air Weight: 92.7 kg Body Mass Index (BMI) 29.3 Finger Stick Blood Glucose 74 Intake and Output for Last 24 Hours 10/21/18 10/22/18 10/23/18 23:59 23:59 23:59 Intake Total 548 / 548 1210 / 1210 560 / 560 Output Total 300 / 300 400 / 400 Balance 248 / 248 810 / 810 560 / 560 Laboratory Results 10/22/18 07:14: Sodium 141, Potassium 4.3, Chloride 107, Carbon Dioxide 30.0, Anion Gap 4 L, BUN 10, Creatinine 1.14, Estim Creat Clear Calc 62.26, Est GFR (MDRD) Af Amer 82, Est GFR (MDRD) Non-Af 67, BUN/Creatinine Ratio 8.8 L, Glucose 74, Calcium 8.7 10/22/18 07:14: Phenobarbital 51.6 H* Current Medications Al Hydroxide/Mg Hydroxide (Mylanta Ii) 30 ml PO Q6H PRN PRN PRN Reason: Gastric Burning Albuterol Sulfate (Ventolin Aerosols) 2.5 mg INHALATION Q4H PRN PRN PRN Reason: shortness of breath or wheezing Alprazolam (Xanax) 2 mg PO QHS [facility] Last Admin: 10/22/18 22:31 Dose: 2 mg Documented by: Ascorbic Acid (Vitamin C) 500 mg PO DAILY@0800 [facility] Last Admin: 10/22/18 10:52 Dose: 500 mg Documented by: Aspirin (Aspirin, Baby) 81 mg PO DAILY@0800 [facility] Last Admin: 10/22/18 10:51 Dose: 81 mg Documented by: Atorvastatin Calcium (Lipitor) 10 mg PO QHS [facility] Last Admin: 10/22/18 22:31 Dose: 10 mg Documented by: Cholecalciferol (Vitamin D) 5,000 unit PO Mo@1000 [facility] Clopidogrel Bisulfate (Plavix) 75 mg PO DAILY [facility] Last Admin: 10/22/18 10:52 Dose: 75 mg Documented by: Enoxaparin Sodium (Lovenox) 40 mg SC DAILY@0600 [facility] Last Admin: 10/23/18 05:09 Dose: 40 mg Documented by: Guaifenesin (Robitussin) 20 ml PO Q4H PRN PRN PRN Reason: COUGH Hydrochlorothiazide () 12.5 mg PO DAILY [facility] Last Admin: 10/22/18 10:55 Dose: 12.5 mg Documented by: Levetiracetam 500 mg/ Sodium (Chloride) 105 mls @ 400 mls/hr IV Q12 [facility] Last Admin: 10/22/18 22:32 Dose: 400 mls/hr Documented by: Ibuprofen (Motrin) 400 mg PO Q4H PRN PRN PRN Reason: Mild Pain (1-3)/Temp > 100.7 F Isosorbide Dinitrate (Isordil) 30 mg PO DAILY [facility] Last Admin: 10/22/18 11:03 Dose: 30 mg Documented by: Lorazepam (Ativan) 1 mg IV Q4H PRN PRN PRN Reason: SEIZURES Magnesium Hydroxide (Milk Of Magnesia) 30 ml PO DAILY PRN PRN PRN Reason: Constipation Melatonin (Melatonin) 3 mg PO QHS PRN PRN PRN Reason: INSOMNIA Metoprolol Succinate (Toprol Xl (Beta Dorota)) 50 mg PO DAILY [facility] Last Admin: 10/22/18 10:53 Dose: 50 mg Documented by: Montelukast Sodium (Singulair) 10 mg PO DAILY@2100 [facility] Last Admin: 10/22/18 20:07 Dose: 10 mg Documented by: Morphine Sulfate () 4 mg IV Q4H PRN PRN PRN Reason: SEVERE PAIN (6-10/10) Last Admin: 10/21/18 23:41 Dose: 4 mg Documented by: Multivitamins (Allbee W/C Caplet, Thera B Comp/C) 1 capsule PO DAILY@0800 [facility] Last Admin: 10/22/18 10:51 Dose: 1 capsule Documented by: Nitroglycerin (Nitrostat) 0.4 mg SUBLINGUAL Q5M PRN PRN Reason: Chest Pain Ondansetron HCl (Zofran) 4 mg IV Q8H PRN PRN PRN Reason: NAUSEA/VOMITING Oxycodone HCl (Oxyir) 10 mg PO Q4H PRN PRN PRN Reason: Moderate Pain (4-6/10) Last Admin: 10/22/18 22:36 Dose: 10 mg Documented by: Phenobarbital (Phenobarbital) 97.2 mg PO 0800,2100 [facility] Last Admin: 10/22/18 20:06 Dose: 97.2 mg Documented by: Promethazine HCl (Phenergan) 25 mg IM Q6H PRN PRN PRN Reason: Breakthrough nausea/vomiting Tiagabine HCl (Gabitril) 4 mg PO 4X/DAY [facility] Last Admin: 10/22/18 22:32 Dose: 4 mg Documented by: Medical Necessity - Tobacco Use Smoking Status: Former smoker Assessment/Plan All Active Problems (Last Reviewed 10/21/18 @ 10:44 by Jt Lindsay MD) Breakthrough seizure (Acute) History of cholecystectomy (Resolved) History of transurethral resection of prostate (Resolved) History of appendectomy (Resolved) History of cardiac catheterization (Resolved) Vertigo (Resolved) Hyponatremia (Resolved) Angina at rest (Resolved) Hernia (Resolved) Muscle weakness of left arm (Resolved) Paresthesia of left arm (Resolved) Syncope (Resolved) The patient is a 68 year old M who comorbidities including seizure disorder, recent cervical spine fracture currently in a c-collar who presented to the emergency department after breakthrough seizure. Patient states he was able to activate his medical alert resulting in EMS showing up. He was transported to the emergency department and admitted for subsequent management further questioning edition denied being incontinent of urine no stool. CT of the head obtained was reported as being normal unenhanced. Cervical spine CT demonstrated a healing fracture of the superior aspect of the C6 vertebra. 1. Seizure disorder with breakthrough seizure. Patient has been admitted to regular nursing floor. Did continue with patient home medications, instituted seizure precautions and consultation placed to neurology. As part of patient evaluation ordered MRI for subsequent management with MRI was unremarkable. Patient was seen by Dr. Santana with neurology added Floyd to patient treatment regimen. 2. Coronary artery disease with previous PCI patient is on recommended medication holding aspirin and Plavix as well as statin therapies and beta- blockers 3. Recent trauma with C6 vertebral fracture patient is in a c-collar did request for PT OT eval 4. Dyslipidemia-patient is on statin therapy, continued at home dose 5. Hypertension-blood pressure controlled, home medications continued with dose adjustment as needed 6. BPH; currently asymptomatic 7. GERD is to treat symptomatically 8. PTSD Xanax as needed 9. DVT prophylaxis: Lovenox 10. Physical deconditioning patient was offered the option of doing to correction facility for rehab in view of his significant risk for falls he declined and was very insistent on being discharged home. Code Visit Inpatient E&M: 48834 Subs Hosp L2
[2018-10-23] MEDS: Aspirin 81 MG TAB.CHEW PO (10:20)
[2018-10-23] MEDS: Clopidogrel Bisulfate 75 MG Tablet PO (10:20)
[2018-10-23] MEDS: hydroCHLOROthiazide 12.5mg 12.5 MG PO (10:20)
[2018-10-23] MEDS: Vitamin B Comp W-C Capsule 1 CAP PO (10:21)
[2018-10-23] MEDS: Metoprolol(XL)Succ 50 MG Tablet PO (10:21)
[2018-10-23] MEDS: Isosorbide DN 30 MG Tablet PO (10:21)
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
[2018-10-23] MEDS: Ascorbic Acid 500 MG Tablet PO (10:22)
[2018-10-23] MEDS: Phenobarbital 32.4 MG Tablet 97.2 MG PO ×2 (10:28→20:13)
--- NOTE | 2018-10-23 11:08 | EKG12_ITS ---
Test Reason : ARRYTHMIA Blood Pressure : / mmHG Vent. Rate : 065 BPM Atrial Rate : 065 BPM P-R Int : 188 ms QRS Dur : 080 ms QT Int : 370 ms P-R-T Axes : 051 -11 026 degrees QTc Int : 384 ms Normal sinus rhythm Normal ECG When compared with ECG of 21-OCT-2018 07:20, MANUAL COMPARISON REQUIRED, DATA IS UNCONFIRMED Confirmed by NICHOLAS BILLS ([id number]), video effects editor KERI WONG ([id number]) on 11/01/2018 2:38:14 PM Referred By: SAM Confirmed By:NICHOLAS BILLS
[2018-10-23] MEDS: oxyCODONE 5 MG Tablet 10 MG PO ×2 (11:12→21:45)
--- NOTE | 2018-10-23 12:28 | CM.ED ---
SOCIAL WORK RECEIVED CALL FROM NURSING THIS MORNING REPORTING PATIENT IS DISCHARGED AND ARE HAVING ISSUES WITH TRANSPORTATION. PATIENT'S BROTHER HAS BEEN CALLED AND IS OUT OF TOWN. MET WITH PATIENT IN ROOM. INTRODUCED ROLE AND REASON FOR REFERRAL. PATIENT STATES, I WANT TO STAY UNTIL I CAN GET THE HOSPITAL BUS HOME. DISCUSSED DISCHARGE AND OTHER OPTIONS. PATIENT STATES WILL CALL HIS SISTER, ROSITA. THIS WORKER OFFERED TO CALL SISTER TO DISCUSS NEED FOR TRANSPORT. PATIENT STATES DOES NOT KNOW HIS SISTER'S CONTACT NUMBER. THIS WORKER DID ATTEMPT TO DISCUSS CONCERNS WITH PATIENT RETURNING HOME. PATIENT STATES, I AM NOT GOING TO A PENITENTIARY. THIS WORKER CALLED PATIENT'S BROTHER TO OBTAIN OTHER OPTIONS FOR TRANSPORT AND SISTER'S CONTACT INFORMATION. NO ANSWER, LEFT VOICEMAIL WITH THIS WORKER'S CALL BACK INFORMATION. KYLE CHUNG, BODY MAKER MACHINE SETTER, CHIEF CATALYST OPERATOR.
--- NOTE | 2018-10-23 12:56 | CM.ED ---
SOCIAL WORK THIS WORKER REVIEWED CHARTING BY DORCAS GALLOWAY. LOCATED SISTER'S ROSITA AND JOHNNY'S CONTACT INFORMATION. (ROSITA BEASLEY [phone] AND JOHNNY CARLTON [phone]). ATTEMPTED TO CONTACT SISTERS, BOTH NUMBERS STATE CALL CAN NOT BE COMPLETED. UPDATED NURSING. AWAITING CALL BACK FROM PATIENT'S BROTHER. KYLE CHUNG, DIRECTOR STARS, RN LABOR AND DELIVERY.
--- NOTE | 2018-10-23 13:55 | CASEMGMT ---
SOCIAL WORK ATTEMPTED TO CONTACT [facility] [employer] [facility] [employer] TO DISCUSS TRANSPORT NEEDS. OFFICE CLOSED.
--- NOTE | 2018-10-23 14:00 | CASEMGMT ---
SOCIAL WORK CALL TO [facility]. LEFT MESSAGE WITH THIS WORKER'S CALL BACK INFORMATION. KYLE CHUNG, GRID MOLDER, LONG LINE TEAMSTER.
--- NOTE | 2018-10-23 14:01 | CASEMGMT ---
SOCIAL WORK DISCUSSED CASE WITH CHARGE NURSE, RANDEE. UNABLE TO FIND TRANSPORTATION FOR PATIENT AT THIS TIME. CONCERNS WITH SETTING UP TAXI D/T SAFETY. CHARGE NURSE TO UPDATE PHYSICIAN.
[2018-10-23] MEDS: Montelukast 10 MG Tablet PO (20:13)
[2018-10-23] MEDS: ALPRAZolam 0.5 MG Tablet 2 MG PO (21:45)
[2018-10-23] MEDS: Atorvastatin Calcium 10 MG Tablet PO (21:47)
[2018-10-24] VITALS (7 sets, daily range): BP systolic 113–167; BP diastolic 64–72; PULSE 64–72; RESP 16–18; TEMP 36.4–36.8; O2SAT 92–96
[2018-10-24] MEDS: oxyCODONE 5 MG Tablet 10 MG PO (03:35)
--- NOTE | 2018-10-24 07:31 | PCM.PN.HOSP ---
Patient Problems: Active and Suspected Problems (Last Reviewed 10/21/18 @ 10:44 by Jt Lindsay MD) Breakthrough seizure (Acute) Subjective: Second attempt to discharge patient home did not materialize in view of patient being profoundly weak. He still insisted on being discharged however was felt patient was not safe to go home plan is to keep the patient through the weekend with consultation placed to case management to assess and disposition possibly to half-way facility. 10/24/2018: Patient seen still very insistent on going home this morning. He is however not been able to ambulate on his own. Objective: GENERAL: cooperative HEENT: Neck in the c-collar EYES; Anicteric, Normal Conjunctiva NECK; supple, normal thyroid, RESPIRATORY: Diminished to auscultation CARDIOVASCULAR: Regular S1 S2, GI: soft, non-tender, normoactive bowel sounds, : No Renal angle tenderness; EXTREMITIES: No edema, no clubbing, MUSCULOSKELETAL: No Joint Tenderness; NEURO: Awake; no lateralizing signs. SKIN: No Rash PSYCH; Normal affect Vitals/I&O's: Vital Signs Temp Pulse Resp BP Pulse Ox 98.2 F 64 18 113/72 92 10/24/18 03:35 10/24/18 03:35 10/24/18 03:35 10/24/18 03:35 10/24/18 03:35 Oxygen Delivery Method Room Air Weight: 92.7 kg Body Mass Index (BMI) 29.3 Finger Stick Blood Glucose 74 Intake and Output for Last 24 Hours 10/22/18 10/23/18 10/24/18 23:59 23:59 23:59 Intake Total 1210 / 1210 560 / 560 245 / 245 Output Total 400 / 400 Balance 810 / 810 560 / 560 245 / 245 Current Medications Al Hydroxide/Mg Hydroxide (Mylanta Ii) 30 ml PO Q6H PRN PRN PRN Reason: Gastric Burning Albuterol Sulfate (Ventolin Aerosols) 2.5 mg INHALATION Q4H PRN PRN PRN Reason: shortness of breath or wheezing Alprazolam (Xanax) 2 mg PO QHS [facility] Last Admin: 10/23/18 21:45 Dose: 2 mg Documented by: Ascorbic Acid (Vitamin C) 500 mg PO DAILY@0800 [facility] Last Admin: 10/23/18 10:22 Dose: 500 mg Documented by: Aspirin (Aspirin, Baby) 81 mg PO DAILY@0800 [facility] Last Admin: 10/23/18 10:20 Dose: 81 mg Documented by: Atorvastatin Calcium (Lipitor) 10 mg PO QHS [facility] Last Admin: 10/23/18 21:47 Dose: 10 mg Documented by: Cholecalciferol (Vitamin D) 5,000 unit PO Mo@1000 [facility] Clopidogrel Bisulfate (Plavix) 75 mg PO DAILY [facility] Last Admin: 10/23/18 10:20 Dose: 75 mg Documented by: Enoxaparin Sodium (Lovenox) 40 mg SC DAILY@0600 [facility] Last Admin: 10/23/18 10:21 Dose: 40 mg Documented by: Guaifenesin (Robitussin) 20 ml PO Q4H PRN PRN PRN Reason: COUGH Hydrochlorothiazide () 12.5 mg PO DAILY [facility] Last Admin: 10/23/18 10:20 Dose: 12.5 mg Documented by: Levetiracetam 500 mg/ Sodium (Chloride) 105 mls @ 400 mls/hr IV Q12 [facility] Last Admin: 10/23/18 21:45 Dose: 400 mls/hr Documented by: Ibuprofen (Motrin) 400 mg PO Q4H PRN PRN PRN Reason: Mild Pain (1-3)/Temp > 100.7 F Isosorbide Dinitrate (Isordil) 30 mg PO DAILY [facility] Last Admin: 10/23/18 10:21 Dose: 30 mg Documented by: Lorazepam (Ativan) 1 mg IV Q4H PRN PRN PRN Reason: SEIZURES Magnesium Hydroxide (Milk Of Magnesia) 30 ml PO DAILY PRN PRN PRN Reason: Constipation Melatonin (Melatonin) 3 mg PO QHS PRN PRN PRN Reason: INSOMNIA Metoprolol Succinate (Toprol Xl (Beta Dorota)) 50 mg PO DAILY [facility] Last Admin: 10/23/18 10:21 Dose: 50 mg Documented by: Montelukast Sodium (Singulair) 10 mg PO DAILY@2100 [facility] Last Admin: 10/23/18 20:13 Dose: 10 mg Documented by: Morphine Sulfate () 4 mg IV Q4H PRN PRN PRN Reason: SEVERE PAIN (6-10/10) Last Admin: 10/21/18 23:41 Dose: 4 mg Documented by: Multivitamins (Allbee W/C Caplet, Thera Alice Comp/C) 1 capsule PO DAILY@0800 [facility] Last Admin: 10/23/18 10:21 Dose: 1 capsule Documented by: Nitroglycerin (Nitrostat) 0.4 mg SUBLINGUAL Q5M PRN PRN Reason: Chest Pain Ondansetron HCl (Zofran) 4 mg IV Q8H PRN PRN PRN Reason: NAUSEA/VOMITING Oxycodone HCl (Oxyir) 10 mg PO Q4H PRN PRN PRN Reason: Moderate Pain (4-6/10) Last Admin: 10/24/18 03:35 Dose: 10 mg Documented by: Phenobarbital (Phenobarbital) 97.2 mg PO 0800,2100 [facility] Last Admin: 10/23/18 20:13 Dose: 97.2 mg Documented by: Promethazine HCl (Phenergan) 25 mg IM Q6H PRN PRN PRN Reason: Breakthrough nausea/vomiting Tiagabine HCl (Gabitril) 4 mg PO 4X/DAY [facility] Last Admin: 10/23/18 21:47 Dose: 4 mg Documented by: Medical Necessity - Tobacco Use Smoking Status: Former smoker Assessment/Plan All Active Problems (Last Reviewed 10/21/18 @ 10:44 by Jt Lindsay MD) Breakthrough seizure (Acute) History of cholecystectomy (Resolved) History of transurethral resection of prostate (Resolved) History of appendectomy (Resolved) History of cardiac catheterization (Resolved) Vertigo (Resolved) Hyponatremia (Resolved) Angina at rest (Resolved) Hernia (Resolved) Muscle weakness of left arm (Resolved) Paresthesia of left arm (Resolved) Syncope (Resolved) The patient is a 68 year old M who comorbidities including seizure disorder, recent cervical spine fracture currently in a c-collar who presented to the emergency department after breakthrough seizure. Patient states he was able to activate his medical alert resulting in EMS showing up. He was transported to the emergency department and admitted for subsequent management further questioning edition denied being incontinent of urine no stool. CT of the head obtained was reported as being normal unenhanced. Cervical spine CT demonstrated a healing fracture of the superior aspect of the C6 vertebra. 1. Seizure disorder with breakthrough seizure. Patient has been admitted to regular nursing floor. Did continue with patient home medications, instituted seizure precautions and consultation placed to neurology. As part of patient evaluation ordered MRI for subsequent management with MRI was unremarkable. Patient was seen by Dr. Santana with neurology added Floyd to patient treatment regimen. 2. Coronary artery disease with previous PCI patient is on recommended medication holding aspirin and Plavix as well as statin therapies and beta-blockers 3. Recent trauma with C6 vertebral fracture patient is in a c-collar did request for PT OT eval 4. Dyslipidemia-patient is on statin therapy, continued at home dose 5. Hypertension-blood pressure controlled, home medications continued with dose adjustment as needed 6. BPH; currently asymptomatic 7. GERD is to treat symptomatically 8. PTSD Xanax as needed 9. DVT prophylaxis: Lovenox 10. Physical deconditioning patient was offered the option of doing to half-way facility for rehab in view of his significant risk for falls patient reluctant to be discharged to half-way facility consult has been placed to case management to assist with disposition. Advance planning; did discuss with the patient regarding advanced directives as well as CODE STATUS. Did explain the various scenarios involved ( FULL CODE, DNR CCA, DNR CCA with no intubation, and DNR CC and what each meant) patient elected to be remain full code. Order was placed. Time spent on discussion 20 minutes. Code Visit Inpatient E&M: 04219 Subs Hosp L2 Procedures: 82323 Advncd Care Plan 30 Min
[2018-10-24] MEDS: Phenobarbital 32.4 MG Tablet 97.2 MG PO (08:20)
[2018-10-24] MEDS: Vitamin B Comp W-C Capsule 1 CAP PO (08:21)
[2018-10-24] MEDS: Aspirin 81 MG TAB.CHEW PO (08:21)
[2018-10-24] MEDS: Ascorbic Acid 500 MG Tablet PO (08:21)
[2018-10-24] MEDS: Metoprolol(XL)Succ 50 MG Tablet PO (10:06)
[2018-10-24] MEDS: Clopidogrel Bisulfate 75 MG Tablet PO (10:07)
[2018-10-24] MEDS: hydroCHLOROthiazide 12.5mg 12.5 MG PO (10:07)
[2018-10-24] MEDS: Isosorbide DN 30 MG Tablet PO (10:07)
[2018-10-24] MEDS: 0.9% Saline Lock 10 ML Syringe IV (11:16)
== END 2018-10-24 12:56 | disposition home health service (06) ==
LOC: ED 07:25 → PCU 09:18
PROVIDERS: Nurse Practitioner Family; Psychiatry & Neurology Neurology; Admitting Provider Internal Medicine; Emergency Provider Emergency Medicine; Family Provider Family Medicine; PCP Family Medicine; Visit Provider Internal Medicine
DX: R56.1 Post traumatic seizures (principal); F43.12 Post-traumatic stress disorder, chronic; J96.10 Chronic respiratory failure, unspecified whether with hypoxia or hypercapnia; I12.9 Hypertensive chronic kidney disease with stage 1 through stage 4 chronic kidney disease, or unspecified chronic kidney disease; N18.3 Chronic kidney disease, stage 3 (moderate); M51.36 Other intervertebral disc degeneration, lumbar region; E78.5 Hyperlipidemia, unspecified; I25.10 Atherosclerotic heart disease of native coronary artery without angina pectoris; N40.0 Benign prostatic hyperplasia without lower urinary tract symptoms; K21.9 Gastro-esophageal reflux disease without esophagitis; Z79.899 Other long term (current) drug therapy; Z79.02 Long term (current) use of antithrombotics/antiplatelets; Z79.82 Long term (current) use of aspirin; Z87.891 Personal history of nicotine dependence
CPT/HCPCS: 36415; 70450; 70553; 71045; 72125; 80048; 80053; 80184; 85025; 93005; 95819; 96361; 96365; 96366; 96367; 96375; 97110; 97162; 97166; 97530; 97535; 99218; 99285; 99406; A9575; J7030; A4216; G0378; J2405

== ENCOUNTER → 2018-12-16 15:09 | Outpatient (CLI) | payer MEDICARE, MEDICAID, SELFPAY ==
[2018-10-21 09:33] VITALS: BMI 29.3
--- NOTE | 2018-12-16 15:15 | RAD_ITS ---
STUDY: X-RAY CHEST REASON FOR EXAM: Male, 68 years old. Chest pain TECHNIQUE: Frontal view of the chest COMPARISON: X-Ray Chest October 21, 2018 FINDINGS: The lungs are clear. There are no pleural effusions. There is no pneumothorax. The heart is normal in size. The visualized osseous structures are within normal limits. Multilevel bridging osteophytosis is present in the thoracic spine. RAD/Chest PA and Lateral IMPRESSION: No acute thoracic pathology. Electronically Signed: Ti Thomas, at 16:15 EDT Tel , Service support ,
== END ==
PROVIDERS: Family Provider Family Medicine; PCP Family Medicine; Referring Provider Family Medicine; Visit Provider Family Medicine
DX: R07.9 Chest pain, unspecified (principal)
CPT/HCPCS: 71046

== ENCOUNTER → 2019-05-12 12:28 | Outpatient (CLI) | payer MEDICARE, MEDICAID, SELFPAY ==
[2018-10-21 09:33] VITALS: BMI 29.3
--- NOTE | 2019-05-12 13:04 | MRI_ITS ---
STUDY: MRI LUMBAR SPINE WITHOUT CONTRAST REASON FOR EXAM: Male, 69 years old. ACUTE ON CHRONIC SHARP back pain X 2 YEARS TECHNIQUE: Standardized fat and water weighted pulse sequences were obtained in the sagittal and axial planes. COMPARISON: None FINDINGS: Normal lumbar lordosis. There is no substantial scoliosis. Normal conus medullaris that terminates at the L1 L1-2: There is mild disc space narrowing and endplate spondylosis. There is no significant disc herniation, central canal or foraminal stenosis. Mild facet arthropathy L2-3: There is mild disc space narrowing and endplates spondylosis. Mild disc bulge and moderate facet arthropathy without significant canal or foraminal stenosis. L3-4: There is mild disc space narrowing and endplates spondylosis. Mild disc bulge and moderate facet arthropathy without significant central canal or foraminal stenosis. L4-5: There is moderate disc space narrowing and endplates spondylosis. Moderate disc bulge and facet arthropathy asymmetric to the right with moderate right foraminal stenosis. There is mild central canal stenosis. Moderate right and mild left foraminal stenosis. L5-S1: There is mild disc space narrowing and endplates spondylosis. Mild disc bulge and facet arthropathy without significant central canal or foraminal stenosis. Normal visualized sacral ala. MRI/Spine Lumbar (Routine) IMPRESSION: L4/L5: Moderate right foraminal stenosis Electronically Signed: Marko Alvarez MD at 11:55 EST Tel , Service support ,
== END ==
PROVIDERS: PCP Family Medicine; Referring Provider Family Medicine; Visit Provider Family Medicine
DX: M54.17 Radiculopathy, lumbosacral region (principal)
CPT/HCPCS: 72148

== ENCOUNTER 2019-05-26 22:50 | Emergency (ER) | payer MEDICARE, MEDICAID, SELFPAY ==
[2018-10-21 09:33] VITALS: BMI 29.3
[2019-05-26 22:51] VITALS: BP 130/70; PULSE 70; RESP 16; TEMP 37.3; O2SAT 93; BMI 30.8
--- NOTE | 2019-05-26 23:13 | ED.DCSUM_ITS ---
History of Present Illness Chief Complaint: Mental Health Informant: Patient Context: Gradual Onset Conflict: - - nightmares Timing: Intermittent Current Severity: Severe Maximum Severity: Severe Worsened by: - - unk Relieved by: not by psychiatric medication x 6 mos, increased 2 mos ago Associated Symptoms: Depressed, Change in Eating, Change in sleeping, Decreased Concentration, Hopelessness, Suicidal Thoughts Specific plan (suicidal thought): none Narrative: Present present suicidal. 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 He states he was suicidal for this reason only. He states the nightmares are so bad that he wakes up in the middle of the night, thinking he is still in combat, hitting and running into things in his room. The neighbors are complaining. He lives in an apartment or cottage complex. Comes by EMS suicidal and wanting to go to [facility] in [place]. He denies any recent illness. He states he broke his neck from a fall 7 months or so ago and has chronic pain in his neck and back, those are no different today. No recent illness. No travel out of the area. Has been seeing a psychiatrist Dr. Manzanares at the [place], increased his antidepressant 2 months ago but he states is not helping. - Past Medical History (1) PTSD (post-traumatic stress disorder) Status: Chronic (2) Atherosclerotic heart disease of [place] coronary artery without angina pectoris Status: Chronic (3) COPD (chronic obstructive pulmonary disease) Status: Chronic (4) Chronic kidney disease Status: Chronic Comment: stage 2-3 (5) STERLING (dyspnea on exertion) Status: Chronic (6) Essential hypertension Status: Chronic (7) HLD (hyperlipidemia) Status: Chronic (8) Restrictive lung disease Status: Chronic Past Medical History - Allergies and Home Meds Allergies/Adverse Reactions: Allergies bee pollen Allergy (Severe, Verified 05/26/19 23:00) Anaphylaxis acetaminophen [From Tylenol] Adverse Reaction (Severe, Verified 05/26/19 23:00) Hives itch amlodipine besylate [From Norvasc] Adverse Reaction (Severe, Verified 05/26/19 23:00) Upset Stomach cephalexin [From Keflex] Adverse Reaction (Severe, Verified 05/26/19 23:00) Hives mental change latex Adverse Reaction (Severe, Verified 05/26/19 23:00) Rash phenytoin sodium [From Dilantin] Adverse Reaction (Severe, Verified 05/26/19 23:00) Hives At doses of higher than 100 mg phenytoin sodium extended [From Dilantin] Adverse Reaction (Severe, Verified 05/26/19 23:00) Hives At doses of higher than 100 mg sesame oil Adverse Reaction (Severe, Verified 05/26/19 23:00) Upset Stomach carbamazepine [From Tegretol] Adverse Reaction (Mild, Verified 05/26/19 23:00) Hives sucralfate [From Carafate] Adverse Reaction (Mild, Verified 05/26/19 23:00) Hives Sulfa (Sulfonamide Antibiotics) Adverse Reaction (Verified 05/26/19 23:00) Unknown Primary Care Physician: Elijah Mullins DO [Primary Care Provider] - Surgical History: cholecystectomy Lives: Alone Smoking Status: Former smoker - Family History Maternal Family History: Family History (Last Reviewed 10/21/18 @ 10:[address] Jt Lindsay MD) Mother Hypertension CAD (coronary artery disease) Father Cancer Family History: Reports: No pertinent history Review of Systems General: Denies: Chills, Fever, Sweats Eyes: Denies: Visual changes - bilaterally, Diplopia ENT: Denies: Bilateral ear pain, Rhinorrhea, Sore throat Cardiovascular: Denies: Chest pain, Palpitations Respiratory: Reports: Dyspnea on exertion. Denies: Dyspnea, Cough Gastrointestinal: Denies: Abdominal pain, Nausea, Vomiting, Diarrhea, Melena, Hematochezia Genitourinary: Denies: Dysuria, Hematuria, Frequency Musculoskeletal: Reports: Neck pain, Back pain. Denies: Swelling, Extremity Pain Skin: Denies: Rash, Wounds Neurological: Denies: Headache, Weakness, Numbness Psych: Reports: Depression, Suicidal thoughts, Suicidal ideations Physical Exam Vital Signs/Narrative: Vital Signs Temp Pulse Resp BP Pulse Ox 05/26/19 22:51 99.1 F 70 16 130/70 H 93 Inital Vital Signs reviewed: Yes General: Well nourished, Well developed, Obese, - - nad Head: Normocephalic, Atraumatic Eyes: Perrl, EOMI ENT: Moist mucous membranes, No rhinorrhea Neck: Supple - FROM, Nontender Cardiovascular: Regular rate, Regular rhythm, No murmurs Respiratory: No distress, CTA bilaterally, Chest nontender Abdomen: Soft, Nontender, Nondistended, Normal bowel sounds Back: Nontender, Normal Inspection Extremities: Nontender, No Edema Skin: Normal color, No rash, No Trauma Neurological: Alert, Oriented x3, Cranial nerves II-XII grossly intact, Normal Strength, Normal Sensation Psych: Normal Speech Pattern, Good Insight, Good Judgement, Depressed, Suicidal thoughts. Negative for: Homicidal thoughts Diagnostic/Tx/Re-eval Laboratory Results 05/26/19 05/26/19 05/26/19 23:40 23:40 23:55 WBC 9.0 RBC 5.59 Hgb 18.2 H* Hct 55.9 H MCV 100.0 H MCH 32.6 H MCHC 32.6 RDW Std Deviation 49.1 H RDW Coeff of Frantz 13.2 Plt Count 141 L MPV 10.7 Immature Gran % (Auto) 1.600 H Neut % (Auto) 64.8 Lymph % (Auto) 16.7 L [place] % (Auto) 12.8 H Eos % (Auto) 2.8 Baso % (Auto) 1.3 H Absolute Neuts (auto) 5.9 Absolute Lymphs (auto) 1.51 Nucleated RBC % 0 Diff Path Review May foll Sodium Potassium Chloride Carbon Dioxide Anion Gap BUN Creatinine Estim Creat Clear Calc Est GFR (MDRD) Af Amer Est GFR (MDRD) Non-Af BUN/Creatinine Ratio Glucose Calcium Total Bilirubin AST ALT Alkaline Phosphatase Troponin I Total Protein Albumin Globulin Albumin/Globulin Ratio Urine Color Yellow Urine Clarity Sl. Cloudy Urine pH 6.5 Ur Specific [place] 1.010 Urine Protein 15 H Urine Glucose (UA) 100 H Urine Ketones Negative Urine Occult Blood Negative Urine Nitrite Negative Urine Bilirubin Negative Urine Urobilinogen Normal Ur Leukocyte Esterase Negative Urine RBC 0 SEEN Urine WBC 0 SEEN Ur Squamous Epith Cells 0 SEEN Amorphous Sediment 1+ Urine Bacteria 0 SEEN Urine Mucus 0 SEEN Urine Opiates Screen NEGATIVE Urine Methadone Screen NEGATIVE Ur Barbiturates Screen POSITIVE H Ur Phencyclidine Scrn NEGATIVE Ur Amphetamines Screen NEGATIVE U Methamphetamin-MDMA NEGATIVE U Benzodiazepines Scrn POSITIVE H Urine Cocaine Screen NEGATIVE U Cannabinoids Screen NEGATIVE Ur Drug Screen Comment Ethyl Alcohol 03/19/20 03/19/20 03/20/20 23:55 23:55 02:58 WBC RBC Hgb Hct MCV MCH MCHC RDW Std Deviation RDW Coeff of Frantz Plt Count MPV Immature Gran % (Auto) Neut % (Auto) Lymph % (Auto) [place] % (Auto) Eos % (Auto) Baso % (Auto) Absolute Neuts (auto) Absolute Lymphs (auto) Nucleated RBC % Diff Path Review Sodium 134 L Potassium 4.6 Chloride 106 Carbon Dioxide 23.0 Anion Gap 5 BUN 19 H Creatinine 1.64 H Estim Creat Clear Calc 42.66 Est GFR (MDRD) Af Amer 54 L Est GFR (MDRD) Non-Af 44 L BUN/Creatinine Ratio 11.6 Glucose 84 Calcium 8.6 Total Bilirubin 0.60 AST 21 ALT 30 Alkaline Phosphatase 68 Troponin I < 0.015 Total Protein 7.4 Albumin 3.4 Globulin 4.0 Albumin/Globulin Ratio 0.8 L Urine Color Urine Clarity Urine pH Ur Specific [place] Urine Protein Urine Glucose (UA) Urine Ketones Urine Occult Blood Urine Nitrite Urine Bilirubin Urine Urobilinogen Ur Leukocyte Esterase Urine RBC Urine WBC Ur Squamous Epith Cells Amorphous Sediment Urine Bacteria Urine Mucus Urine Opiates Screen Urine Methadone Screen Ur Barbiturates Screen Ur Phencyclidine Scrn Ur Amphetamines Screen U Methamphetamin-MDMA U Benzodiazepines Scrn Urine Cocaine Screen U Cannabinoids Screen Ur Drug Screen Comment Ethyl Alcohol < 3.0 - Rhythm Strip Rhythm Strip: Sinus Rhythm Rate: 62 Ectopy: None - EKG Initial EKG Interpretation: Sinus Rhythm, No Acute Injury Pattern, - - Left axis Patient's work-up is unremarkable. He does have barbiturates and benzodiazepines in his urine, however he takes phenobarbital for seizures and alprazolam for anxiety. He developed some left-sided chest discomfort while he was in the emergency department and told us immediately. He states he gets this from time to time, maybe every couple weeks or every month, he does not know what it is. Sometimes he takes nitroglycerin for it when he gets it. We immediately got an EKG, it shows no acute ischemic abnormalities, or T wave inversions, he has a leftward axis that he had before, a little more prominent now. Troponin was sent and returned negative. He was given a GI cocktail but before getting it his pain resolved. It may be lasted 5 minutes. I do not think this was unstable angina, it was left-sided chest discomfort without radiation, he was not diaphoretic and had no change in his vital signs. I think he is stable for transfer for psychiatric evaluation. ED Disposition - Plan for ED Patient: Disposition: Psychiatric Hospital or Unit Diagnosis: Suicidal ideation, PTSD (post-traumatic stress disorder) Referrals: Elijah Mullins DO [Primary Care Provider] -
[2019-05-26 23:53] LABS: Bacteria 0 SEEN /hpf (None Seen); Mucous, Urine 0 SEEN /hpf (<or=2+); Red Blood Cells-Urine 0 SEEN /hpf (0-5); Squamous Epithelial Cells - UA 0 SEEN /hpf (0-5); White Blood Cells 0 SEEN /hpf (0-5)
[2019-05-26 23:54] LABS: Color, Urine Yellow (Yellow); Glucose, Dipstick 100 mg/dl (Normal); Ketone-Dipstick Negative (Negative); Leukocyte Esterase-Dipstick Negative /ul (Negative); Nitrite-Dipstick Negative (Negative); Occult Blood-Urine Negative /ul (Negative); Protein-Dipstick 15 mg/dl (Negative); Urine Bilirubin Dipstick Negative (Negative); Urine Clarity Sl. Cloudy (Clear); Urine Urobilinogen Normal (Normal); Urine pH 6.5 (5.0 - 8.0)
[2019-05-27] VITALS (12 sets, daily range): BP systolic 125–152; BP diastolic 62–87; PULSE 62–83; RESP 11–17; TEMP 36.6; O2SAT 93–94
[2019-05-27 00:05] LABS: Amorphous Sediment 1+
[2019-05-27 00:17] LABS: Absolute Lymphocyte Count 1.51 X10^3/uL (0.83-4.51); Absolute Neutrophil Count 5.9 X10^3/uL (2.0-7.7); Basophil# 0.12 X10^3/uL; Basophil% 1.3 % (0-1); Eosinophil# 0.25 X10^3/uL; Eosinophils% 2.8 % (0-5); Lymphocyte # 1.51 X10^3/ul (4.0); Lymphocyte % 16.7 % (19-41); Mean Corp Hgb Conc 32.6 g/dL (32-36); Mean Corpuscular Hgb 32.6 pg (27.0-32.0); Mean Platelet Vol. 10.7 fl (6.2-12.0); Monocyte# 1.16 X10^3/uL; Monocyte% 12.8 % (0-10); NRBC Flagged by Analyzer 0 % (0-5); Neutrophil # 5.85 X10^3/uL (2.7-7.7); Neutrophil % 64.8 % (47-70); Platelet Count 141 K/mm3 (150-450); RBC Distribution Width CV 13.2 % (11.6-14.6); RBC Distribution Width SD 49.1 fl (35.1-43.9); Red Blood Count 5.59 M/mm3 (4.6-6.2)
[2019-05-27 00:18] LABS: Hematocrit 55.9 % (40-54)
[2019-05-27 00:21] LABS: Alcohol, Blood (Medical)-Serum < 3.0 mg/dL; Differential Indicated SCAN CRITERIA MET; Hemoglobin 18.2 g/dL (13.0-16.5)
[2019-05-27 00:24] LABS: Amphetamine Urine VISTA NEGATIVE (<1000 ng/mL); Barbiturate Urine VISTA POSITIVE (< 200 ng/mL); Benzodiazepine Urine VISTA POSITIVE (< 200 ng/mL); Cocaine Urine VISTA NEGATIVE (< 300 ng/mL); Ecstacy Urine VISTA NEGATIVE (< 500 ng/mL); Methadone Urine VISTA NEGATIVE (< 300 ng/mL); PCP Urine VISTA NEGATIVE (< 25 ng/mL); THC Urine VISTA NEGATIVE (< 50 ng/mL); Vista UDS pH Range 6
[2019-05-27 00:35] LABS: ALB/GLOB Ratio 0.8 RATIO (0.9-2.4); AST(SGOT) 21 U/L (15-37); Alanine Aminotransfer ALT/SGPT 30 U/L (16-61); Albumin, Serum 3.4 g/dL (3.2-5.0); Alkaline Phosphatase 68 U/L (45-117); Anion Gap 5 (5-15); BUN 19 mg/dL (7-18); BUN/Creat Ratio 11.6 RATIO (10-20); Calcium,Total 8.6 mg/dL (8.5-10.1); Chloride 106 mmol/L (98-107); Creatinine, Serum 1.64 mg/dL (0.70-1.30); EST Glomerular Filtration Rate 44 mL/min (>60); Est Glom Filt Rate - Afr Amer 54 mL/min (>60); Estimated Creatinine Clearance 42.66 ml/min; Glucose 84 mg/dL (74-106); Potassium 4.6 mmol/L (3.5-5.1); Protein, Total 7.4 g/dL (6.4-8.2); Sodium Level 134 mmol/L (136-145)
--- NOTE | 2019-05-27 01:22 | ED.RN ---
[facility] CONTACT[facility] TO SEE PT
--- NOTE | 2019-05-27 01:24 | ED.RN ---
[facility] COMING TO SEE THE PT
--- NOTE | 2019-05-27 02:47 | EKG12_ITS ---
Test Reason : MHC Blood Pressure : / mmHG Vent. Rate : 062 BPM Atrial Rate : 062 BPM P-R Int : 196 ms QRS Dur : 090 ms QT Int : 398 ms P-R-T Axes : 029 -32 024 degrees QTc Int : 403 ms Normal sinus rhythm Left axis deviation Inferior infarct , age undetermined Abnormal ECG Confirmed by NICHOLAS BILLS ([id number]), copy editor KERI WONG ([id number]) on 05/30/2019 11:01:57 AM Referred By: TATY Confirmed By:NICHOLAS BILLS
[2019-05-27] MEDS: Mag Hydrox/Al Hydrox/Simeth 30 ML UDC PO (03:19)
[2019-05-27] MEDS: oxyCODONE 5 MG Tablet PO (05:32)
--- NOTE | 2019-05-27 08:04 | ED.RN ---
SPOKE [facility]. THEY WANTED [facility] TEMP. REPORTED 97.8 TEMPORAL. [facility] STATED THAT THEY ARE PASSING OFF INFORMATION TO THE DRS AND WILL HOPEFULLY HAVE PLACEMENT FOR PT
--- NOTE | 2019-05-27 09:16 | ED.RN ---
[facility] CALLED AND GAVE ACCEPTANCE FOR PT. THEY SET UP TRANSPORT AND SHOULD BE HERE BETWEEN 11-12 TODAY
[2019-05-27 09:30] LABS: Pathologist Review Reviewed
--- NOTE | 2019-05-27 10:34 | ED.RN ---
This nurse attempted to call report 3 times with no answer.
== END 2019-05-27 11:13 ==
PROVIDERS: Emergency Provider Emergency Medicine; PCP Family Medicine
DX: R45.851 Suicidal ideations (principal); F43.10 Post-traumatic stress disorder, unspecified; F41.9 Anxiety disorder, unspecified; E66.9 Obesity, unspecified; F32.9 Major depressive disorder, single episode, unspecified; Z87.891 Personal history of nicotine dependence; Z90.49 Acquired absence of other specified parts of digestive tract; Z82.49 Family history of ischemic heart disease and other diseases of the circulatory system; Z88.1 Allergy status to other antibiotic agents; Z88.6 Allergy status to analgesic agent; Z88.2 Allergy status to sulfonamides; E78.5 Hyperlipidemia, unspecified; I12.9 Hypertensive chronic kidney disease with stage 1 through stage 4 chronic kidney disease, or unspecified chronic kidney disease; N18.9 Chronic kidney disease, unspecified; I25.10 Atherosclerotic heart disease of native coronary artery without angina pectoris; J44.9 Chronic obstructive pulmonary disease, unspecified; G89.29 Other chronic pain
CPT/HCPCS: 80053; 80307; 80320; 81001; 84484; 85025; 93005; 99285; G0480

== ENCOUNTER → 2019-09-06 15:22 | Outpatient (CLI) | payer MEDICARE, MEDICAID, SELFPAY ==
[2019-07-06 09:36] VITALS: BMI 28.7
[2019-09-06 16:11] LABS: Absolute Lymphocyte Count 0.91 X10^3/uL (0.83-4.51); Absolute Neutrophil Count 6.7 X10^3/uL (2.0-7.7); Basophil# 0.09 X10^3/uL; Eosinophil# 0.11 X10^3/uL; Eosinophils% 1.2 % (0-5); Hematocrit 54.5 % (40-54); Hemoglobin 17.4 g/dL (13.0-16.5); Lymphocyte # 0.91 X10^3/ul (4.0); Lymphocyte % 10.3 % (19-41); Mean Corp Hgb Conc 31.9 g/dL (32-36); Mean Corpuscular Hgb 32.9 pg (27.0-32.0); Mean Platelet Vol. 10.7 fl (6.2-12.0); Monocyte# 0.84 X10^3/uL; Monocyte% 9.5 % (0-10); NRBC Flagged by Analyzer 0 % (0-5); Neutrophil # 6.74 X10^3/uL (2.7-7.7); Neutrophil % 76.2 % (47-70); Platelet Count 165 K/mm3 (150-450); RBC Distribution Width CV 13.8 % (11.6-14.6); RBC Distribution Width SD 52.8 fl (35.1-43.9); Red Blood Count 5.29 M/mm3 (4.6-6.2); White Blood Count 8.9 K/mm3 (4.4-11.0)
[2019-09-06 16:39] LABS: Vitamin D,25 Hydroxy 60.1 ng/mL
[2019-09-06 16:46] LABS: AST(SGOT) 13 U/L (15-37); Alanine Aminotransfer ALT/SGPT 22 U/L (16-61); Albumin, Serum 3.6 g/dL (3.2-5.0); Alkaline Phosphatase 83 U/L (45-117); Anion Gap 3 (5-15); BUN 16 mg/dL (7-18); BUN/Creat Ratio 12.5 RATIO (10-20); Calcium,Total 8.6 mg/dL (8.5-10.1); Chloride 108 mmol/L (98-107); Creatinine, Serum 1.28 mg/dL (0.70-1.30); EST Glomerular Filtration Rate 59 mL/min (>60); Est Glom Filt Rate - Afr Amer 71 mL/min (>60); Globulin 3.6 g/dL (2.2-4.2); Glucose 102 mg/dL (74-106); Potassium 4.3 mmol/L (3.5-5.1); Protein, Total 7.2 g/dL (6.4-8.2); Sodium Level 140 mmol/L (136-145); T4 Free Direct 0.84 ng/dL (0.76-1.46); Thyroid Stim Hormone (TSH) 1.37 uIU/mL (0.358-3.74)
[2019-09-13 11:09] LABS: Testosterone, Free 27.32 ng/dL (5.00-21.00)
[2019-09-13 15:41] LABS: Testosterone, % Free 3.18 % (1.50-4.20); Testosterone, Total 859 ng/dL (264-916)
== END ==
PROVIDERS: PCP Family Medicine; Referring Provider Family Medicine; Visit Provider Family Medicine
DX: E29.1 Testicular hypofunction (principal); E55.9 Vitamin D deficiency, unspecified; D75.1 Secondary polycythemia; R53.83 Other fatigue; Z51.81 Encounter for therapeutic drug level monitoring
CPT/HCPCS: 36415; 80053; 82306; 84402; 84403; 84439; 84443; 85025

== ENCOUNTER 2020-01-11 01:21 | Emergency (ER) | payer MEDICARE, MEDICAID, SELFPAY ==
[2019-07-06 09:36] VITALS: BMI 28.7
[2020-01-11 01:22] VITALS: BP 142/87; PULSE 74; RESP 16; TEMP 37.2; O2SAT 93; BMI 31.1
--- NOTE | 2020-01-11 01:23 | CT_ITS ---
STUDY: CT BRAIN WITHOUT CONTRAST REASON FOR EXAM: Male, 69 years old. FALL AFTER SZ, HX FREQUENT FALLS RADIATION DOSAGE (If Supplied By Facility): CTDIvol = ( 44.99 ) mGy, DLP = ( 829.85 ) mGycm TECHNIQUE: Transaxial CT imaging of the brain was performed without administration of intravenous contrast material. Individualized dose optimization techniques were used for this CT. COMPARISON: CT scan brain 10/21/2018. FINDINGS: There is a left frontal skin contusion. There are bubbles of air in the orbits bilaterally as well as in soft tissues of the face. There is also air in the right cavernous sinus. The air in the orbits is seen to be within ophthalmic veins. Although not as clearly demonstrated, the air within the face is probably intravenous as well.. I suspect that all these visualized air bubbles represent air intravasation related to intravenous apparatus, rather than true soft tissue emphysema. Normal calvarium. Normal size ventricles and extra-axial spaces for the patient''s age. Normal white matter tracts of the cerebral hemispheres. Normal basal ganglia and thalami. Normal brainstem. Normal cerebellum. There is atherosclerotic calcification of the cavernous carotid arteries. There is no intracranial hemorrhage. There are no findings of an acute ischemic infarction. Normal visualized paranasal sinuses. CT/Brain/Head without Contrast IMPRESSION: Atherosclerotic calcifications of the cavernous carotid arteries. No demonstrated acute intracranial process. Electronically Signed: Rosendo Peter MD at 2:29 EST , Service support ,
--- NOTE | 2020-01-11 01:24 | CT_ITS ---
STUDY: CT CERVICAL SPINE WITHOUT CONTRAST REASON FOR EXAM: Male, 69 years old. Status post fall after seizure. History of frequent falls. RADIATION DOSAGE (If Supplied By Facility): CTDIvol = ( 28.10 ) mGy, DLP = ( 608.74 ) mGycm TECHNIQUE: High resolution transaxial imaging was performed without contrast material. Sagittal and coronal images were reconstructed. Individualized dose optimization techniques were used for this CT. COMPARISON: CT scan C-spine 10/21/2018. FINDINGS: Normal craniovertebral junction. There are degenerative changes of the anterior atlantoaxial articulation. Normal odontoid process. There are multilevel degenerative changes of uncovertebral and apophyseal joints. There is straightening of the normal cervical lordosis. Normal vertebral bodies and posterior osseous elements. C2-3: Spondylosis. Small broad posterior disc protrusion.Mild spinal stenosis with central canal AP diameter of 8.5 mm. Normal intervertebral neuroforamina. C3-4: Spondylosis. Broad posterior disc protrusion. Moderate spinal stenosis with central canal AP diameter of 6 mm.. Normal right and mild narrowing left intervertebral neuroforamina. C4-5: Bridging osteophytes. Disc space narrowing. Broad posterior disc osteophyte complex. Mild spinal stenosis with central canal AP diameter of 9 mm.. Normal intervertebral neuroforamina. C5-6: Bridging osteophytes. Disc space narrowing. Broad posterior disc osteophyte complex. Moderate spinal stenosis with central canal AP diameter of 7.5 mm.. Mild narrowing bilateral intervertebral neuroforamina. C6-7: Bridging osteophytes. Disc space narrowing. Broad posterior disc osteophyte complex. Mild spinal stenosis with central canal AP diameter of 9 mm. Moderate narrowing right and mild narrowing left intervertebral neuroforamina. C7-T1: Spondylosis.. Normal disc height and morphology. Normal central canal and intervertebral neuroforamina. Normal visualized soft tissue structures. CT/Spine Cervical without Contras IMPRESSION: Multilevel degenerative changes, as described above. No demonstrated fracture or subluxation. Electronically Signed: Rosendo Peter MD at 2:42 EST , Service support ,
--- NOTE | 2020-01-11 01:24 | EKG12_ITS ---
Test Reason : DYSRHYTHMIA Blood Pressure : / mmHG Vent. Rate : 072 BPM Atrial Rate : 072 BPM P-R Int : 176 ms QRS Dur : 086 ms QT Int : 378 ms P-R-T Axes : 055 -22 011 degrees QTc Int : 413 ms Normal sinus rhythm Inferior infarct (cited on or before 27-MAY-2019) Abnormal ECG Confirmed by ZHAO XAVIER, RACHEL ([id number]), legal editor KERI WONG ([id number]) on 01/12/2020 11:26:50 AM Referred By: SUSAN Confirmed By:RACHEL CHURCHILL MD
--- NOTE | 2020-01-11 01:26 | ED.VIS.GEN ---
History of Present Illness Chief Complaint: Fall Informant: Patient, Treatment Technician Onset: Today Context: Sudden Onset Timing: Continuous Current Severity: Moderate Maximum Severity: Moderate Narrative: The patient is a 69-year-old male with medical history significant for seizure disorder who is on phenobarbital, coronary vascular disease on Plavix, hypertension, hyperlipidemia the presents to the emergency department after a fall. Patient thinks that he may have had a seizure today. He was brought in by EMS. Apparently, this is the fourth time this week that EMS has been out of the house. The patient does have home health aide during the day, but has been falling frequently at night. He has been unsteady on his feet which is new for him. He has had about 3 falls and other times this week. Today, he did strike his forehead. He does not think he lost consciousness. He states his been compliant with his medications. He thinks he had a breakthrough seizure earlier this week. History is hard to gather from the patient. Prior similar symptoms: Yes Recent Illness/Hospitalization: No Past Medical History - Allergies and Home Meds Allergies/Adverse Reactions: Allergies bee pollen Allergy (Severe, Verified 01/11/20:30) Anaphylaxis acetaminophen [From Tylenol] Adverse Reaction (Severe, Verified 01/11/20:30) Hives itch amlodipine besylate [From Norvasc] Adverse Reaction (Severe, Verified 01/11/20:30) Upset Stomach cephalexin [From Keflex] Adverse Reaction (Severe, Verified 01/11/20:30) Hives mental change latex Adverse Reaction (Severe, Verified 01/11/20:30) Rash phenytoin sodium [From Dilantin] Adverse Reaction (Severe, Verified 01/11/20:30) Hives At doses of higher than 100 mg phenytoin sodium extended [From Dilantin] Adverse Reaction (Severe, Verified 01/11/20:30) Hives At doses of higher than 100 mg sesame oil Adverse Reaction (Severe, Verified 01/11/20:30) Upset Stomach carbamazepine [From Tegretol] Adverse Reaction (Mild, Verified 01/11/20:30) Hives sucralfate [From Carafate] Adverse Reaction (Mild, Verified 01/11/20:30) Hives Sulfa (Sulfonamide Antibiotics) Adverse Reaction (Verified 11/04/20 01:30) Unknown Primary Care Physician: Elijah Mullins DO [Primary Care Provider] - Prior records reviewed: Yes Past Medical History: - - Seizure disorder, hypertension, coronary vascular disease, COPD Surgical History: cholecystectomy Smoking Status: Former smoker - Family History Maternal Family History: Family History (Last Reviewed 07/06/19 @ 10:05 by Edel Flor) Mother Hypertension CAD (coronary artery disease) Father Cancer Family History: Reports: No pertinent history Review of Systems General: Denies: Chills, Fever, Sweats Eyes: Denies: Visual changes - bilaterally, Diplopia ENT: Denies: Rhinorrhea, Sore throat Cardiovascular: Denies: Chest pain, Palpitations Respiratory: Denies: Dyspnea, Cough, Dyspnea on exertion Gastrointestinal: Denies: Abdominal pain, Nausea, Vomiting, Diarrhea, Melena, Hematochezia Genitourinary: Denies: Dysuria, Hematuria, Frequency Musculoskeletal: Denies: Back pain, Extremity Pain Skin: Denies: Rash, Wounds Neurological: Reports: Weakness. Denies: Headache, Numbness Physical Exam Inital Vital Signs reviewed: Yes General: Well nourished, Well developed, No Acute Distress Head: Normocephalic, Trauma - Abrasion above left eye with small hematoma Eyes: Perrl, EOMI ENT: Moist mucous membranes, No rhinorrhea Neck: Supple, Nontender Cardiovascular: Regular rate, Regular rhythm, No murmurs Respiratory: No distress, CTA bilaterally, Chest nontender Abdomen: Soft, Nontender, Nondistended, Normal bowel sounds Back: Nontender, Normal Inspection Extremities: Nontender, No edema Skin: Normal color, No rash Neurological: Alert, Oriented x3, Cranial nerves II-XII grossly intact, Normal Strength, Normal Sensation Psychological: Normal affect, Normal Mood Diagnostic/Tx/Re-eval Clinical Impression(s) from Imaging Studies Brain CT 01/11/20 01:23 IMPRESSION: Atherosclerotic calcifications of the cavernous carotid arteries. No demonstrated acute intracranial process. Electronically Signed: Rosendo Peter MD at 2:29 EST , Service support , Cervical Spine CT 01/11/20 01:24 IMPRESSION: Multilevel degenerative changes, as described above. No demonstrated fracture or subluxation. Electronically Signed: Rosendo Peter MD at 2:42 EST , Service support , Abnormal Lab Results 01/11/20 01/11/20 01/11/20 01:40 01:40 01:40 WBC 9.7 RBC 4.92 Hgb 15.9 Hct 49.7 MCV 101.0 H MCH 32.3 H MCHC 32.0 RDW Std Deviation 51.4 H RDW Coeff of Frantz 13.5 Plt Count 143 L MPV 10.1 Immature Gran % (Auto) 0.900 Neut % (Auto) 71.1 H Lymph % (Auto) 11.1 L [place] % (Auto) 13.7 H Eos % (Auto) 2.5 Baso % (Auto) 0.7 Absolute Neuts (auto) 6.9 Absolute Lymphs (auto) 1.08 Nucleated RBC % 0 Sodium 136 Potassium 4.0 Chloride 104 Carbon Dioxide 28.0 Anion Gap 4 L BUN 16 Creatinine 1.61 H Estim Creat Clear Calc 43.45 Est GFR (MDRD) Af Amer 55 L Est GFR (MDRD) Non-Af 45 L BUN/Creatinine Ratio 9.9 L Glucose 82 Calcium 8.1 L Total Bilirubin 0.60 AST 52 H ALT 39 Alkaline Phosphatase 69 Ammonia Total Protein 7.2 Albumin 3.6 Globulin 3.6 Albumin/Globulin Ratio 1.0 Phenobarbital 37.6 01/11/20 01:40 WBC RBC Hgb Hct MCV MCH MCHC RDW Std Deviation RDW Coeff of Frantz Plt Count MPV Immature Gran % (Auto) Neut % (Auto) Lymph % (Auto) [place] % (Auto) Eos % (Auto) Baso % (Auto) Absolute Neuts (auto) Absolute Lymphs (auto) Nucleated RBC % Sodium Potassium Chloride Carbon Dioxide Anion Gap BUN Creatinine Estim Creat Clear Calc Est GFR (MDRD) Af Amer Est GFR (MDRD) Non-Af BUN/Creatinine Ratio Glucose Calcium Total Bilirubin AST ALT Alkaline Phosphatase Ammonia 31.0 Total Protein Albumin Globulin Albumin/Globulin Ratio Phenobarbital - Rhythm Strip Rhythm Strip: Sinus Rhythm Rate: 70 Ectopy: None - EKG Initial EKG Interpretation: Sinus Rhythm, No Acute Injury Pattern Prior: Unchanged - Medical Decision Making Patient presents with mechanical fall. He had a seizure 2 days ago. Since that time, he has been more unsteady on his feet. He did suffer head injury. There is a small abrasion on the scalp, but nothing that would require suture closure. Broad metabolic work-up was pursued as EMS was concerned with the patient's recurrent falls. Patient was on multiple medications that would contribute to his falls. Noncontrast head CT was obtained which showed evidence of facial contusion, but no intracranial abnormality. CT of the C-spine was unremarkable for acute process. Screening labs were at the patient's baseline. His phenobarbital was on therapeutic level. With the patient's recurrent falls and unsteadiness, I did feel that the most prudent plan of care would be for admission. The patient is outright refusing this. He states he has no interest in staying in the hospital. He states he has home health and a nurse. He wants to be discharged. I did business and financial counsel him that I am concerned with his falls, that he may suffer rather significant injury like fracture or significant head injury. He states that he still will not stay in the hospital. I have basically begged the patient for admission but he is refusing. The patient will leave AGAINST MEDICAL ADVICE. Impression 1. Ataxia 2. Frequent falls 3. Breakthrough seizure ED Disposition - Plan for ED Patient: Instructions: ED Mechanical Fall Referrals: Elijah Mullins DO [Primary Care Provider] -
[2020-01-11 01:48] LABS: Absolute Lymphocyte Count 1.08 X10^3/uL (0.83-4.51); Absolute Neutrophil Count 6.9 X10^3/uL (2.0-7.7); Basophil# 0.07 X10^3/uL; Basophil% 0.7 % (0-1); Eosinophil# 0.24 X10^3/uL; Eosinophils% 2.5 % (0-5); Hematocrit 49.7 % (40-54); Hemoglobin 15.9 g/dL (13.0-16.5); Lymphocyte # 1.08 X10^3/ul (4.0); Lymphocyte % 11.1 % (19-41); Mean Corpuscular Hgb 32.3 pg (27.0-32.0); Mean Platelet Vol. 10.1 fl (6.2-12.0); Monocyte# 1.33 X10^3/uL; Monocyte% 13.7 % (0-10); NRBC Flagged by Analyzer 0 % (0-5); Neutrophil # 6.88 X10^3/uL (2.7-7.7); Neutrophil % 71.1 % (47-70); Platelet Count 143 K/mm3 (150-450); RBC Distribution Width CV 13.5 % (11.6-14.6); RBC Distribution Width SD 51.4 fl (35.1-43.9); Red Blood Count 4.92 M/mm3 (4.6-6.2); White Blood Count 9.7 K/mm3 (4.4-11.0)
[2020-01-11 02:11] LABS: AST(SGOT) 52 U/L (15-37); Alanine Aminotransfer ALT/SGPT 39 U/L (16-61); Albumin, Serum 3.6 g/dL (3.2-5.0); Alkaline Phosphatase 69 U/L (45-117); Anion Gap 4 (5-15); BUN 16 mg/dL (7-18); BUN/Creat Ratio 9.9 RATIO (10-20); Calcium,Total 8.1 mg/dL (8.5-10.1); Chloride 104 mmol/L (98-107); Creatinine, Serum 1.61 mg/dL (0.70-1.30); EST Glomerular Filtration Rate 45 mL/min (>60); Est Glom Filt Rate - Afr Amer 55 mL/min (>60); Estimated Creatinine Clearance 43.45 ml/min; Globulin 3.6 g/dL (2.2-4.2); Glucose 82 mg/dL (74-106); Protein, Total 7.2 g/dL (6.4-8.2); Sodium Level 136 mmol/L (136-145)
[2020-01-11] MEDS: oxyCODONE 5 MG Tablet 10 MG PO (02:43)
[2020-01-11 03:08] VITALS: BP 145/78; PULSE 78; RESP 16; O2SAT 98
--- NOTE | 2020-01-11 03:08 | ED.RN ---
phone call to adult protective services placed at this time. Social work consult placed. Patient keeps having frequent falls patient had fall while in the ER
--- NOTE | 2020-01-11 12:37 | CM.ED ---
SOCIAL WORK Received voicemail from Dr. Amezquita updating on need for follow up with Adult Protective Services ([facility]). Nursing made report to APS. Patient was discharged from ER early this morning before SW hours. Call to [place] with Adult Protective Services. Left message. Awaiting call back. Elmer Mccullough, PASSPORT SUPPORT ASSOCIATE, HVAC CONTROLS TECHNICIAN
== END 2020-01-11 03:09 | disposition home or self-care (01) ==
LOC: ED 02:05
PROVIDERS: Emergency Provider Emergency Medicine; PCP Family Medicine
DX: R27.0 Ataxia, unspecified (principal); G40.909 Epilepsy, unspecified, not intractable, without status epilepticus; R29.6 Repeated falls; E78.5 Hyperlipidemia, unspecified; I10 Essential (primary) hypertension; J44.9 Chronic obstructive pulmonary disease, unspecified; Z79.02 Long term (current) use of antithrombotics/antiplatelets; Z82.49 Family history of ischemic heart disease and other diseases of the circulatory system; Z88.1 Allergy status to other antibiotic agents; Z88.2 Allergy status to sulfonamides; Z88.6 Allergy status to analgesic agent; Z90.49 Acquired absence of other specified parts of digestive tract; Z87.891 Personal history of nicotine dependence
CPT/HCPCS: 70450; 72125; 80053; 80184; 82140; 85025; 93005; 99285; J7030

== ENCOUNTER 2020-06-15 15:28 | Emergency (ER) | payer OTHER, MEDICARE, MEDICAID, SELFPAY ==
[2020-06-15 15:29] VITALS: PULSE 94; RESP 18; TEMP 37.1; O2SAT 96
--- NOTE | 2020-06-15 15:40 | CT_ITS ---
STUDY: CT CERVICAL SPINE WITHOUT CONTRAST REASON FOR EXAM: Male, 70 years old. trauma RADIATION DOSAGE (If Supplied By Facility): CTDIvol = ( 29.44 ) mGy, DLP = ( 737.21 ) mGycm TECHNIQUE: High resolution transaxial imaging was performed without contrast material. Sagittal and coronal images were reconstructed. Individualized dose optimization techniques were used for this CT. COMPARISON: 01/11/2020 FINDINGS: No definite acute fracture/dislocation. The cervical junction is intact. C1-C2 articulation is intact. Curvature is within normal limits. There is normal alignment. Facet joints are intact at all levels bilaterally. No jumped facets. There is multilevel spondyloarthropathy. Multilevel degenerative disc disease seen. Multilevel loss of disc height. Multilevel vertebral body fusions, stable. Multilevel posterior marginal osteophytes and disc bulges. Multilevel neural foraminal narrowing. Multilevel narrowing of the spinal canal. Visualized paraspinal soft tissues and structures are unremarkable. CT/Spine Cervical without Contras IMPRESSION: There is no definite acute fracture/dislocation. Degenerative changes, stable. Electronically Signed: Eliecer Salmon MD at 16:51 EDT , Service support ,
--- NOTE | 2020-06-15 15:40 | CT_ITS ---
STUDY: CT BRAIN WITHOUT CONTRAST REASON FOR EXAM: Male, 70 years old. trauma RADIATION DOSAGE (If Supplied By Facility): CTDIvol = ( 44.99 ) mGy, DLP = ( 779.24 ) mGycm TECHNIQUE: Transaxial CT imaging of the brain was performed without administration of intravenous contrast material. Individualized dose optimization techniques were used for this CT. COMPARISON: 01/11/2020 FINDINGS: Normal soft tissue structures. Normal calvarium. Normal size ventricles and extra-axial spaces for the patient''s age. Normal white matter tracts of the cerebral hemispheres. Normal basal ganglia and thalami. Normal brainstem. Normal cerebellum. There is no intracranial hemorrhage. There are no findings of an acute ischemic infarction. Normal visualized paranasal sinuses. CT/Brain/Head without Contrast IMPRESSION: Normal unenhanced CT scan of the brain. Electronically Signed: Eliecer Salmon MD at 16:49 EDT , Service support ,
[2020-06-15] MEDS: Diphth,Pertuss(Acell),Tet Vac 0.5 ML Vial IM (17:01)
[2020-06-15] MEDS: BACITRACIN 15 GM Tube 1 APPLIC TOPICAL (17:03)
--- NOTE | 2020-06-15 17:29 | ED.DCSUM_ITS ---
- ER Visit Summary Date of Service: 06/15/20 Chief Complaint: Fall History of Present Illness: The patient is a 70 M patient thrown his dogs leash tripped him. He hit his forehead. He did not lose consciousness. He denies any other acute injuries or pain. He is on blood thinners. Physical Examination: Patient has a superficial abrasion to his mid forehead. Otherwise HEENT exam and head is normal. Neck is nontender. Shoulders and arms atraumatic. Hips and legs atraumatic. Heart regular. Chest nontender. Lungs clear. Abdomen soft. Back is nontender. Good strength and sensation, symmetric. Test Results: CT brain and cervical spine showed nothing acute. Emergency Department Course and Treatment: Tetanus was updated. Wound care with bacitracin and a dressing. No indication for sutures. Imaging, symptoms, exam or all reassuring. Patient will be discharged home. Return right away for any complications. Treatment Plan: As above Disposition: Discharge Impression: Concussion, facial abrasion This note was generated with [employer] dictation software. It may contain incorrect words, spelling, and punctuation that were not noted in review of the chart prior to signing ED Disposition - Plan for ED Patient: Referrals: Elijah Mullins DO [Primary Care Provider] -
--- NOTE | 2020-06-15 17:30 | ED.DEP ---
ED Disposition - Plan for ED Patient: Instructions: ED Mechanical Fall Referrals: Elijah Mullins DO [Primary Care Provider] -
[2020-06-15 18:00] VITALS: BP 140/78; PULSE 80; RESP 18; TEMP 36.6; O2SAT 97
== END 2020-06-15 18:02 | disposition home or self-care (01) ==
LOC: ED 15:51
PROVIDERS: Emergency Provider Emergency Medicine; PCP Family Medicine
DX: S06.0X0A Concussion without loss of consciousness, initial encounter (principal); S00.81XA Abrasion of other part of head, initial encounter; W01.0XXA Fall on same level from slipping, tripping and stumbling without subsequent striking against object, initial encounter; Y93.K1 Activity, walking an animal; Y92.89 Other specified places as the place of occurrence of the external cause; Y99.8 Other external cause status; Z79.01 Long term (current) use of anticoagulants; Z23 Encounter for immunization; I25.10 Atherosclerotic heart disease of native coronary artery without angina pectoris; J44.9 Chronic obstructive pulmonary disease, unspecified; I12.9 Hypertensive chronic kidney disease with stage 1 through stage 4 chronic kidney disease, or unspecified chronic kidney disease; N18.9 Chronic kidney disease, unspecified; E78.00 Pure hypercholesterolemia, unspecified; Z95.1 Presence of aortocoronary bypass graft; Z87.891 Personal history of nicotine dependence
CPT/HCPCS: 70450; 72125; 90471; 90715; 99285

== ENCOUNTER 2020-10-30 09:46 | Emergency (ER) | payer OTHER, MEDICARE, MEDICAID, SELFPAY ==
[2020-10-30 09:47] VITALS: BP 176/87; PULSE 67; RESP 18; TEMP 37.3; O2SAT 96; BMI 36.3
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
--- NOTE | 2020-10-30 10:23 | RAD_ITS ---
STUDY: X-RAY - LEFT SHOULDER REASON FOR EXAM: Male, 70 years old. Injury TECHNIQUE: 1 view(s) of the shoulder. COMPARISON: None. FINDINGS: Inferior subluxation of the glenohumeral joint. Normal acromioclavicular joint. Normal acromion. There is a 2.4 cm bony fragment most likely representing an avulsion of the greater tuberosity of the proximal humerus. The soft tissue structures are unremarkable. Normal visualized pulmonary apex. RAD/Shoulder One View IMPRESSION: Inferior dislocation with findings suggestive of an avulsion fracture of the greater tuberosity of the proximal humerus. Electronically Signed: Sanya Jacome MD at 10:55 EDT , Service support ,
[2020-10-30] MEDS: Morphine 4 MG/ML Syringe IV (10:27)
[2020-10-30] MEDS: Ondansetron 4 MG/2 ML Vial IV (10:27)
[2020-10-30] MEDS: Propofol 200 MG/20 ML Vial IV BOLUS (10:40)
[2020-10-30 10:44] VITALS: BP 146/79; BP 148/77; BP 149/76; BP 163/82; BP 167/84; PULSE 59; PULSE 60; PULSE 61; PULSE 62; PULSE 66; RESP 12; RESP 14; RESP 16; RESP 18; O2SAT 100; O2SAT 97; O2SAT 99
--- NOTE | 2020-10-30 11:10 | RAD_ITS ---
STUDY: X-RAY - LEFT SHOULDER REASON FOR EXAM: Male, 70 years old. Reduction TECHNIQUE: 2 view(s) of the shoulder. COMPARISON: Comparison is made with prior study done earlier today. FINDINGS: Satisfactory reduction. Normal acromioclavicular joint. Normal acromion. Comminuted nondisplaced fracture of the greater tuberosity of the proximal humerus. The soft tissue structures are unremarkable. Normal visualized pulmonary apex. RAD/Shoulder min 2 Views IMPRESSION: Satisfactory reduction of the glenohumeral joint. Comminuted nondisplaced fracture of the greater tuberosity. Electronically Signed: Sanya Jacome MD at 11:45 EDT , Service support ,
[2020-10-30] MEDS: oxyCODONE 5 MG Tablet 10 MG PO (11:21)
[2020-10-30] MEDS: Ketorolac 30 MG/ML Syringe IV (11:22)
[2020-10-30 11:52] VITALS: BP 148/90; PULSE 60; RESP 18; O2SAT 98; O2SAT 99
[2020-10-30 12:22] VITALS: BP 90/64; PULSE 66; RESP 18; O2SAT 98
== END 2020-10-30 12:22 | disposition home or self-care (01) ==
LOC: ED 11:51
PROVIDERS: Emergency Provider Emergency Medicine; PCP Family Medicine
DX: S40.812A Abrasion of left upper arm, initial encounter (principal); S42.92XA Fracture of left shoulder girdle, part unspecified, initial encounter for closed fracture; W18.31XA Fall on same level due to stepping on an object, initial encounter; Y93.H2 Activity, gardening and landscaping; Y92.89 Other specified places as the place of occurrence of the external cause; Y99.9 Unspecified external cause status; E78.5 Hyperlipidemia, unspecified; F43.10 Post-traumatic stress disorder, unspecified; G40.909 Epilepsy, unspecified, not intractable, without status epilepticus; I12.9 Hypertensive chronic kidney disease with stage 1 through stage 4 chronic kidney disease, or unspecified chronic kidney disease; I25.10 Atherosclerotic heart disease of native coronary artery without angina pectoris; J44.9 Chronic obstructive pulmonary disease, unspecified; K21.9 Gastro-esophageal reflux disease without esophagitis; N40.0 Benign prostatic hyperplasia without lower urinary tract symptoms; Z79.82 Long term (current) use of aspirin; Z95.5 Presence of coronary angioplasty implant and graft
CPT/HCPCS: 23575; 73020; 73030; 96374; 96375; 99152; 99153; 99285; J7030; A4216; J2405

== ENCOUNTER → 2020-12-03 17:13 | Outpatient (CLI) | payer MEDICARE, MEDICAID, SELFPAY ==
--- NOTE | 2020-12-03 17:19 | MRI_ITS ---
EXAM: MR LEFT UPPER EXTREMITY WITHOUT INTRAVENOUS CONTRAST, SHOULDER CLINICAL INDICATION: LT SHOULDER , RCT, FX''D HUMERUS TECHNIQUE: Multiplanar and multisequence MR images of the left shoulder without intravenous contrast. This report was created using [employer] report generation technology. COMPARISON: XR 8.24. FINDINGS: TENDONS: SUPRASPINATUS: Unremarkable. Intact. INFRASPINATUS: Unremarkable. Intact. SUBSCAPULARIS: Unremarkable. Intact. TERES MINOR: Unremarkable. Intact. BICEPS BRACHII, LONG HEAD: Unremarkable. The extra-articular biceps tendon is in the bicipital groove. The intra-articular biceps tendon is normal. LIGAMENTS: GLENOHUMERAL: Unremarkable. Intact. MUSCLES: Unremarkable. No rotator cuff muscle atrophy. FLUID: Unremarkable. No joint effusion. No subacromial-subdeltoid space bursal fluid. CARTILAGE: Unremarkable. Articular cartilage intact. GLENOID LABRUM: Unremarkable. Intact, limited evaluation on non-arthrographic exam. BONES/JOINTS: Abnormal MRI signal of the humeral head consistent for bony edema and fracture. There are degenerative findings of the acromioclavicular joint. Multiple fracture fragments overlying the shoulder joint. OTHER SOFT TISSUES: Diffuse soft tissue edema around the shoulder. OTHER FINDINGS: Partial incomplete tear of the infraspinatus. MRI/Upper Ext Joint Only(Routine) IMPRESSION: 1. Abnormal MRI signal of the humeral head consistent for bony edema and fracture. 2. Partial incomplete tear of the infraspinatus tendon. Electronically Signed: Tonny Duncan MD at 19:10 EDT , Service support ,
== END ==
PROVIDERS: PCP Family Medicine; Visit Provider Family Medicine
DX: M75.102 Unspecified rotator cuff tear or rupture of left shoulder, not specified as traumatic (principal); S42.352D Displaced comminuted fracture of shaft of humerus, left arm, subsequent encounter for fracture with routine healing
CPT/HCPCS: 73221

== ENCOUNTER → 2021-02-05 05:59 | Outpatient (CLI) | payer MEDICARE, MEDICAID, SELFPAY ==
--- NOTE | 2021-02-05 06:03 | ECHOD_ITS ---
Reason For Study: CAD/ PRE-OP Procedure This was a 2D Doppler, Color Flow transthoracic echocardiogram. The study was technically difficult. Pt scanned supine due to recent fall with fracture and rotator cuff injury to left shoulder. Awaiting surgery following cardiac work up. Exam performed in department. Left Ventricle Normal LV size. Left ventricular systolic function is normal. The estimated ejection fraction is 60 %. No evidence for diastolic dysfunction. No regional wall motion abnormalities noted. Right Ventricle Normal RV size. Normal systolic function. Atria Normal left atrium. Normal right atrium. No doppler evidence for ASD. Mitral Valve There is no mitral annular calcification. Normal mitral valve. Mild (1+) mitral valve insufficiency. Tricuspid Valve Normal tricuspid valve. Mild tricuspid valve insufficiency. Right ventricular systolic pressure estimated to be 24 mmHg. Aortic Valve Trisinus/trileaflet aortic valve. Mild diffuse aortic valve thickening. Pulmonic Valve The pulmonic valve is not well visualized. Great Vessels The aortic root is not well visualized. Pericardium/Pleural No pericardial effusion. MMode/2D Measurements & Calculations LVIDd: 3.0 cm IVSd: 1.2 cm LAV(MOD-bp): 30.2 ml LVIDs: 2.0 cm LVPWd: 1.2 cm LAV(MOD-bp) Indexed: 14.2 ml/m2 RVDd: 3.2 cm FS: 33.4 % LAV(MOD-sp2): 31.5 ml LAV(MOD-sp4): 28.4 ml SV(MOD-sp4): 41.0 ml SV(sp4-el): 42.6 ml LVAd ap4: 28.7 cm2 LVLd ap4: 8.0 cm EDV(MOD-sp4): 83.3 ml EDV(sp4-el): 87.1 ml LVAs ap4: 18.5 cm2 LVLs ap4: 6.6 cm ESV(MOD-sp4): 42.3 ml ESV(sp4-el): 44.4 ml EF(MOD-sp4): 49.3 % EF(sp4-el): 49.0 % LA A4 area: 14.0 cm2 RA A4 area: 11.1 cm2 Doppler Measurements & Calculations MV E max jimmie: 51.4 cm/sec Lat Peak E' Jimmie: 10.3 cm/sec Med Peak E' Jimmie: 4.4 cm/sec MV A max jimmie: 69.1 cm/sec E/E' lat: 5.0 E/E' med: 11.7 MV E/A: 0.74 Ao V2 max: 131.9 cm/sec LV V1 max: 97.2 cm/sec PA V2 max: 81.7 cm/sec Ao max P.0 mmHg LV V1 max P.8 mmHg TR max jimmie: 228.9 cm/sec TR max P.0 mmHg ECHO/Echo Complete Interpretation Summary The study was technically difficult. Left ventricular systolic function is normal. The estimated ejection fraction is 60 %. Mild (1+) mitral valve insufficiency. Mild tricuspid valve insufficiency. Mild diffuse aortic valve thickening. Right ventricular systolic pressure estimated to be 24 mmHg. No evidence for diastolic dysfunction. Ordering Physician: Kendal Alvarez Referring Physician: KERRY BURGER Performed By: Spring Burroughs RDCS, RVT
--- NOTE | 2021-02-05 08:06 | STRESSREP ---
Stress Test Report Date: 02-05-2021 Procedure: Pharmacologic stress nuclear imaging study Indications: Chest pain, CAD, PCI, pre operative evaluation Consent: Per the patient Procedure: The patient underwent pharmacologic (Regadenoson 0.4mg ) evaluation with a peak heart rate of 69 beats per minute (46 %predicted maximal heart rate) and a peak blood pressure of 122/78 mmHg. The baseline ECG demonstrated sinus bradycardia. The peak pharmacologic ECG demonstrated no obvious ECG changes There was an isolated PVC pretest. [There was no complaint of chest discomfort during pharmacologic infusion or recovery]. The examination was discontinued secondary to completion of protocol. Impression: 1. Pharmacologic (Regadenoson) evaluation 2. Peak pharmacologic ECG with no obvious ECG changes. 3. There was an isolated PVC pretest. 4. Nuclear images pending Myocardial perfusion imaging study: Technique: The patient was injected with 11.9 millicuries of technetium 99m Cardiolite and subsequently rest SPECT Cardiolite nuclear imaging was obtained in the horizontal long, vertical long, and short axis views. The patient underwent pharmacologic (Regadenoson) evaluation with a peak heart rate of 69 beats per minute (46 % percent predicted maximal heart rate) and a peak blood pressure of 122/78 mmHg. The patient was injected with 33.1 millicuries of technetium 99m Cardiolite and subsequently stress SPECT Cardiolite nuclear imaging was obtained in the horizontal long, vertical long, and short axis views. A gated Cardiolite study at peak stress was obtained. Interpretation: Rest and stress SPECT Cardiolite nuclear imaging status post realignment, normalization, and attenuation correction demonstrate relative uniform uptake and myocardial perfusion appearing within normal limits. There is end systolic thickening and brightening. The gated Cardiolite study demonstrates myocardial thickening and inward wall motion. The reported LVEF is 61 %. Impression: 1. Rest and stress SPECT Cardiolite nuclear imaging demonstrate relative uniform tracer uptake and myocardial perfusion appearing within normal limits. 2. The gated Cardiolite study reports an LVEF of 61 %. This note was generated with [employer] software. It may contain incorrect words, spelling, and punctuation that were not noted in checking the note before signing.
== END ==
PROVIDERS: PCP Family Medicine; Referring Provider Internal Medicine Cardiovascular Disease; Visit Provider Internal Medicine Cardiovascular Disease
DX: R06.09 Other forms of dyspnea (principal); I25.10 Atherosclerotic heart disease of native coronary artery without angina pectoris
CPT/HCPCS: 78452; 93017; 93306; A9500; A4216; J2785

== ENCOUNTER 2021-05-16 18:17 | Emergency (ER) | payer MEDICARE, MEDICAID, SELFPAY ==
[2021-05-16 18:18] VITALS: BP 155/100; PULSE 93; RESP 11; TEMP 37.6; O2SAT 93; BMI 31.5
--- NOTE | 2021-05-16 18:36 | CT_ITS ---
We are attempting to reach an attending provider to discuss findings. An addendum with communication details will be sent when the communication is complete. STUDY: CT CERVICAL SPINE WITHOUT CONTRAST REASON FOR EXAM: Male, 71 years old. fall/trauma RADIATION DOSAGE (If Supplied By Facility): CTDIvol = ( 31.49 ) mGy, DLP = ( 599.61 ) mGycm TECHNIQUE: High resolution transaxial imaging was performed without contrast material. Sagittal and coronal images were reconstructed. Individualized dose optimization techniques were used for this CT. COMPARISON: None FINDINGS: There is an acute nondisplaced fracture of the left posterior neural arch of C1 and comminuted fracture of left lateral mass. Normal anterior atlantoaxial articulation. Normal odontoid process. Decreased cervical lordosis. C2-3: Anterior endplate spurring Normal disc height and morphology. Normal central canal and intervertebral neuroforamina. C3-4: Anterior endplate spurring.. Normal disc height and morphology. Normal central canal and intervertebral neuroforamina. C4-5: Narrowed disc space and endplate spurring.. Normal central canal and intervertebral neuroforamina. C5-6: Narrowed disc space and endplate spurring.. Normal central canal and intervertebral neuroforamina. C6-7: Narrowed disc space and endplate spurring.. Normal central canal and intervertebral neuroforamina. C7-T1: Normal endplates. Normal disc height and morphology. Normal central canal and intervertebral neuroforamina. Normal visualized soft tissue structures. CT/Spine Cervical without Contras IMPRESSION: Acute fractures of the left posterior arch and lateral mass of C1 Advanced osteoarthritic changes Electronically Signed: Ti Langston MD at 20:38 EST ,
--- NOTE | 2021-05-16 18:36 | CT_ITS ---
STUDY: CT BRAIN WITHOUT CONTRAST REASON FOR EXAM: Male, 71 years old. trauma RADIATION DOSAGE (If Supplied By Facility): CTDIvol = ( 44.99 ) mGy, DLP = ( 846.73 ) mGycm TECHNIQUE: Transaxial CT imaging of the brain was performed without administration of intravenous contrast material. Individualized dose optimization techniques were used for this CT. COMPARISON: 06/15/2020 FINDINGS: Normal soft tissue structures. Normal calvarium. Normal size ventricles and extra-axial spaces for the patient''s age. Minor periventricular white matter ischemic changes Normal basal ganglia and thalami. Normal brainstem. Normal cerebellum. There is no intracranial hemorrhage. There are no findings of an acute ischemic infarction. Postsurgical changes of left orbit Normal visualized paranasal sinuses. CT/Brain/Head without Contrast IMPRESSION: Minor periventricular white matter ischemic change. No evidence for acute intracranial hemorrhage. Electronically Signed: Ti Langston MD at 20:22 EST ,
--- NOTE | 2021-05-16 18:36 | RAD_ITS ---
STUDY: X-RAY - LEFT SHOULDER REASON FOR EXAM: Male, 71 years old. pain/injury - acute on chronic TECHNIQUE: 3 view(s) of the shoulder. COMPARISON: None. FINDINGS: Narrowed glenohumeral articulation. Narrowed subacromial space which may be consistent with rotator cuff tendon injury. Normal acromioclavicular joint. Normal acromion. Normal humeral head and visualized proximal humerus. The soft tissue structures are unremarkable. Normal visualized pulmonary apex. RAD/Shoulder min 2 Views IMPRESSION: Degenerative changes. No acute fracture or dislocation Electronically Signed: Ti Langston MD at 20:44 EST ,
--- NOTE | 2021-05-16 18:36 | RAD_ITS ---
STUDY: X-RAY - LUMBAR SPINE REASON FOR EXAM: Male, 71 years old. pain/fall/injury, POSITIONING LIMITED DUE TO PATIENT PAIN TOLERANCE AND ADDITIONAL INJURY TECHNIQUE: 2 view(s) of the lumbar spine were obtained. COMPARISON: None FINDINGS: Normal lumbar lordosis. There is no substantial scoliosis. There is a normal alignment of the vertebrae. Mild multilevel disc space narrowing and endplate spurring. No evidence for acute fracture or subluxation.. The soft tissue structures are unremarkable. RAD/Lumbar Spine 2 or 3 Views IMPRESSION: Degenerative changes. No acute fracture or luxation. Electronically Signed: Ti Langston MD at 20:45 EST ,
--- NOTE | 2021-05-16 18:38 | EKG12_ITS ---
Test Reason : FALL Blood Pressure : / mmHG Vent. Rate : 083 BPM Atrial Rate : 083 BPM P-R Int : 178 ms QRS Dur : 086 ms QT Int : 362 ms P-R-T Axes : 053 -24 -01 degrees QTc Int : 425 ms Normal sinus rhythm Inferior infarct , age undetermined Abnormal ECG Confirmed by ZHAO XAVIER, RACHEL ([id number]), writer editor DIONNA MOORE ([id number]) on 05/17/2021 2:29:03 PM Referred By: BB Confirmed By:RACHEL CHURCHILL MD
[2021-05-16 18:59] LABS: Absolute Lymphocyte Count 0.82 X10^3/uL (0.83-4.51); Basophil# 0.08 X10^3/uL; Basophil% 0.7 % (0-1); Eosinophil# 0.16 X10^3/uL; Eosinophils% 1.4 % (0-5); Hematocrit 54.3 % (40-54); Hemoglobin 17.7 g/dL (13.0-16.5); Lymphocyte # 0.82 X10^3/ul (0.83-4.51); Lymphocyte % 7.2 % (19-41); Mean Corp Hgb Conc 32.6 g/dL (32-36); Mean Corpuscular Hgb 32.8 pg (27.0-32.0); Mean Corpuscular Volume 100.7 fL (80-94); Mean Platelet Vol. 10.8 fl (6.2-12.0); Monocyte# 1.19 X10^3/uL; Monocyte% 10.5 % (0-10); NRBC Flagged by Analyzer 0 % (0-5); Neutrophil # 8.99 X10^3/uL (2.7-7.7); Neutrophil % 79.3 % (47-70); Platelet Count 158 K/mm3 (150-450); RBC Distribution Width CV 13.2 % (11.6-14.6); RBC Distribution Width SD 49.9 fl (35.1-43.9); Red Blood Count 5.39 M/mm3 (4.6-6.2); White Blood Count 11.3 K/mm3 (4.4-11.0)
[2021-05-16 19:04] LABS: International Normalized Ratio 1.1; Prothrombin Time (Protime)PT. 13.8 SECONDS (11.7-14.9)
[2021-05-16 19:05] LABS: Partial Thromboplast Time 29.4 Seconds (24.1-36.2)
[2021-05-16 19:12] VITALS: BP 134/76; PULSE 84; RESP 10; O2SAT 95
[2021-05-16 19:14] LABS: AST(SGOT) 16 U/L (15-37); Alanine Aminotransfer ALT/SGPT 26 U/L (16-61); Albumin, Serum 3.8 g/dL (3.2-5.0); Alkaline Phosphatase 103 U/L (45-117); Anion Gap 6 (5-15); BUN 11 mg/dL (7-18); BUN/Creat Ratio 7.3 RATIO (10-20); Calcium,Total 8.7 mg/dL (8.5-10.1); Chloride 105 mmol/L (98-107); Creatinine, Serum 1.51 mg/dL (0.70-1.30); EST Glomerular Filtration Rate 48 mL/min (>60); Est Glom Filt Rate - Afr Amer 59 mL/min (>60); Estimated Creatinine Clearance 44.99 ml/min; Glucose 123 mg/dL (74-106); Potassium 3.9 mmol/L (3.5-5.1); Protein, Total 7.8 g/dL (6.4-8.2); Sodium Level 139 mmol/L (136-145); Troponin-I HS 10 pg/mL (3.0-78.0)
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
[2021-05-16] MEDS: 0.9% Normal Saline 1,000 ML 150 ML IV (19:19)
--- NOTE | 2021-05-16 19:33 | RAD_ITS ---
STUDY: X-RAY CHEST REASON FOR EXAM: Male, 71 years old. weakness TECHNIQUE: Single AP portable view of the chest. COMPARISON: 12/16/2018. FINDINGS: The lungs are clear and expanded. There is no demonstrated pleural abnormality. Normal size heart. Normal mediastinum and orion. Normal visualized pulmonary arteries. Normal visualized aortic arch and descending thoracic aorta. Normal visualized thoracic spine. Normal visualized ribs, clavicles, and shoulders. There is no demonstrated abnormality of the visualized soft tissue structures of the upper abdomen. RAD/Chest 1 View (Portable) IMPRESSION: Normal x-ray examination of the chest. Electronically Signed: Porsha Asif MD at 20:23 EST Reading Location ID and State: [id number] / Tel , Service support ,
[2021-05-16 19:38] VITALS: TEMP 37.2
[2021-05-16 20:14] LABS: Lactic Acid 0.9 mmol/L (0.4-1.9)
[2021-05-16 20:19] VITALS: BP 141/81; PULSE 88; RESP 24; TEMP 37.2; O2SAT 92
[2021-05-16 20:20] VITALS: TEMP 37.2
[2021-05-16 21:04] VITALS: BP 147/83; PULSE 79; RESP 20; TEMP 37.1; O2SAT 93
--- NOTE | 2021-05-16 21:16 | ED.RN ---
Report called to SAVAGE Singleton at [place] [id number]. Patient gave verbal consent to transport due to spinal fracture.
== END 2021-05-16 22:23 | disposition short-term general hospital (02) ==
PROVIDERS: Emergency Provider Emergency Medicine; PCP Family Medicine; Visit Provider Emergency Medicine
DX: S12.000A Unspecified displaced fracture of first cervical vertebra, initial encounter for closed fracture (principal); J44.9 Chronic obstructive pulmonary disease, unspecified; W18.30XA Fall on same level, unspecified, initial encounter; I12.9 Hypertensive chronic kidney disease with stage 1 through stage 4 chronic kidney disease, or unspecified chronic kidney disease; N18.9 Chronic kidney disease, unspecified; I25.10 Atherosclerotic heart disease of native coronary artery without angina pectoris; E78.5 Hyperlipidemia, unspecified; R47.81 Slurred speech; S09.90XA Unspecified injury of head, initial encounter; S39.012A Strain of muscle, fascia and tendon of lower back, initial encounter
CPT/HCPCS: 70450; 71045; 72100; 72125; 73030; 80053; 83605; 84484; 85025; 85610; 85730; 87040; 93005; 99285; J7030; A4216

== ENCOUNTER → 2021-07-24 | Outpatient (CLI) | payer MEDICARE, MEDICAID, SELFPAY ==
--- NOTE | 2021-07-24 15:20 | RAD_ITS ---
STUDY: X-RAY - RIGHT SHOULDER REASON FOR EXAM: Male, 71 years old. R SHOULDER PAIN TECHNIQUE: 4 view(s) of the shoulder. COMPARISON: None. FINDINGS: Normal glenohumeral articulation. Normal acromioclavicular joint. Normal acromion. Normal humeral head and visualized proximal humerus. The soft tissue structures are unremarkable. Normal visualized pulmonary apex. RAD/Shoulder min 2 Views IMPRESSION: Normal x-ray examination of the shoulder. Electronically Signed: Jamir Buitrago MD at 1:21 EDT ,
== END | disposition home or self-care (01) ==
LOC: RAD 15:05
PROVIDERS: PCP Family Medicine; Visit Provider Nurse Practitioner Family
DX: M25.511 Pain in right shoulder (principal)
CPT/HCPCS: 73030

== ENCOUNTER 2022-01-08 10:52 | Emergency (ER) | payer MEDICARE, MEDICAID, SELFPAY ==
[2022-01-08 10:54] VITALS: BP 133/89; PULSE 64; RESP 14; TEMP 35.8; O2SAT 96; BMI 30.9
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
--- NOTE | 2022-01-08 11:17 | RAD_ITS ---
STUDY: X-RAY - RIGHT SHOULDER REASON FOR EXAM: Male, 71 years old. Injury TECHNIQUE: 4 view(s) of the shoulder. COMPARISON: Comparison is made with prior study dated 07/24/2021. FINDINGS: There is mild degenerative arthrosis of the glenohumeral articulation. There is degenerative arthrosis of the acromioclavicular joint without inferior osseous spur formation. Normal acromion. Normal humeral head and visualized proximal humerus. The soft tissue structures are unremarkable. Normal visualized pulmonary apex. RAD/Shoulder min 2 Views IMPRESSION: Degenerative changes. No acute abnormality is seen. Electronically Signed: Sanya Jacome MD at 12:43 EDT ,
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
[2022-01-08] MEDS: oxyCODONE 5 MG Tablet PO (11:23)
--- NOTE | 2022-01-08 11:37 | RAD_ITS ---
STUDY: X-RAY - LEFT SHOULDER REASON FOR EXAM: Male, 71 years old. Pain following injury. TECHNIQUE: 4 view(s) of the shoulder. COMPARISON: Comparison is made with prior study 05/16/2021. FINDINGS: There is mild degenerative arthrosis of the glenohumeral articulation. Normal acromioclavicular joint. Normal acromion. Nondisplaced fracture of the greater tuberosity of the proximal humerus. The soft tissue structures are unremarkable. Normal visualized pulmonary apex. RAD/Shoulder min 2 Views IMPRESSION: Nondisplaced fracture of the greater tuberosity of the proximal humerus. Electronically Signed: Sanya Jacome MD at 12:45 EDT ,
[2022-01-08 12:00] VITALS: BP 114/93; PULSE 79; RESP 14; O2SAT 94
[2022-01-08 13:35] VITALS: BP 141/89; PULSE 65; RESP 14; O2SAT 100
[2022-01-08 13:58] VITALS: BP 128/66; PULSE 57; RESP 16; O2SAT 96
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
== END 2022-01-08 13:58 | disposition home or self-care (01) ==
PROVIDERS: Emergency Provider Emergency Medicine; PCP Family Medicine; Visit Provider Emergency Medicine
DX: S12.030A Displaced posterior arch fracture of first cervical vertebra, initial encounter for closed fracture (principal); J44.9 Chronic obstructive pulmonary disease, unspecified; V89.2XXA Person injured in unspecified motor-vehicle accident, traffic, initial encounter; E78.5 Hyperlipidemia, unspecified; R51.9 Headache, unspecified; M25.512 Pain in left shoulder; M25.511 Pain in right shoulder; N18.9 Chronic kidney disease, unspecified; I12.9 Hypertensive chronic kidney disease with stage 1 through stage 4 chronic kidney disease, or unspecified chronic kidney disease; I25.10 Atherosclerotic heart disease of native coronary artery without angina pectoris
CPT/HCPCS: 70450; 72125; 73030; 99283

== ENCOUNTER → 2022-03-28 | Outpatient (CLI) | payer MEDICARE, MEDICAID, SELFPAY ==
[2022-03-28 18:18] LABS: Absolute Lymphocyte Count 0.95 X10^3/uL (0.83-4.51); Absolute Neutrophil Count 7.1 X10^3/uL (2.0-7.7); Basophil# 0.06 X10^3/uL; Basophil% 0.7 % (0-1); Eosinophil# 0.09 X10^3/uL; Hematocrit 54.5 % (40-54); Hemoglobin 17.6 g/dL (13.0-16.5); Lymphocyte # 0.95 X10^3/ul (0.83-4.51); Lymphocyte % 10.3 % (19-41); Mean Corp Hgb Conc 32.3 g/dL (32-36); Mean Corpuscular Hgb 33.3 pg (27.0-32.0); Mean Platelet Vol. 11.4 fl (6.2-12.0); Monocyte% 9.8 % (0-10); NRBC Flagged by Analyzer 0 % (0-5); Neutrophil # 7.09 X10^3/uL (2.7-7.7); Neutrophil % 76.9 % (47-70); Platelet Count 162 K/mm3 (150-450); RBC Distribution Width CV 13.4 % (11.6-14.6); RBC Distribution Width SD 51.6 fl (35.1-43.9); Red Blood Count 5.29 M/mm3 (4.6-6.2); White Blood Count 9.2 K/mm3 (4.4-11.0)
[2022-03-28 18:49] LABS: ALB/GLOB Ratio 0.9 RATIO (0.9-2.4); AST(SGOT) 21 U/L (15-37); Alanine Aminotransfer ALT/SGPT 51 U/L (16-61); Albumin, Serum 3.5 g/dL (3.2-5.0); Alkaline Phosphatase 83 U/L (45-117); Anion Gap 7 (5-15); BUN 23 mg/dL (7-18); BUN/Creat Ratio 15.9 RATIO (10-20); Calcium,Total 8.3 mg/dL (8.5-10.1); Chloride 102 mmol/L (98-107); Cholesterol 126 mg/dL (200); Creatinine, Serum 1.45 mg/dL (0.70-1.30); EST Glomerular Filtration Rate 51 mL/min (>60); Est Glom Filt Rate - Afr Amer 61 mL/min (>60); Globulin 3.7 g/dL (2.2-4.2); Glucose 106 mg/dL (74-106); High Density Lipoprotein 46 mg/dL; PSA,Total - Annual Screen 4.11 ng/mL (0.00-4.00); Potassium 4.2 mmol/L (3.5-5.1); Protein, Total 7.2 g/dL (6.4-8.2); Sodium Level 136 mmol/L (136-145); Thyroid Stim Hormone (TSH) 1.65 uIU/mL (0.358-3.74); Triglycerides 117 mg/dL; Very Low Density Lipoprotein 23 mg/dL (5-40)
[2022-03-28 19:20] LABS: Vitamin D,25 Hydroxy 41.6 ng/mL
== END | disposition home or self-care (01) ==
LOC: BFHLAB 14:44
PROVIDERS: PCP Family Medicine; Visit Provider Family Medicine
DX: Z12.5 Encounter for screening for malignant neoplasm of prostate (principal); Z51.81 Encounter for therapeutic drug level monitoring; I25.10 Atherosclerotic heart disease of native coronary artery without angina pectoris; I10 Essential (primary) hypertension; E29.1 Testicular hypofunction; E55.9 Vitamin D deficiency, unspecified
CPT/HCPCS: 36415; 80053; 80061; 82306; 84153; 84403; 84443; 85025; G0103

== ENCOUNTER 2023-02-02 10:57 | Emergency (ER) | payer MEDICARE, MEDICAID, SELFPAY ==
[2023-02-02 10:58] VITALS: BP 115/92; PULSE 78; RESP 14; TEMP 36.6; BMI 31.3
[2023-02-02 11:03] VITALS: O2SAT 96
[2023-02-02 11:05] VITALS: O2SAT 97
--- NOTE | 2023-02-02 11:06 | EKG12_ITS ---
Test Reason : CP Blood Pressure : / mmHG Vent. Rate : 080 BPM Atrial Rate : 080 BPM P-R Int : 174 ms QRS Dur : 082 ms QT Int : 354 ms P-R-T Axes : 055 -24 018 degrees QTc Int : 408 ms Normal sinus rhythm Inferior infarct , age undetermined Abnormal ECG Confirmed by ZHAO XAVIER, RACHEL ([id number]), video editor DIONNA MOORE ([id number]) on 02/03/2023 10:47:03 AM Referred By: CELINE/JACINTA Confirmed By:RACHEL CHURCHILL MD
--- NOTE | 2023-02-02 11:22 | RAD_ITS ---
STUDY: X-RAY CHEST REASON FOR EXAM: Male, 72 years old. Chest pain TECHNIQUE: Frontal view of the chest COMPARISON: 05/16/2021 FINDINGS: The lungs are clear. There are no pleural effusions. There is no pneumothorax. The heart is normal in size. The visualized osseous structures are within normal limits. RAD/Chest 1 View (Portable) IMPRESSION: No acute thoracic pathology. Electronically Signed: Loi Cook MD at 11:49 EST ,
[2023-02-02 11:29] LABS: Absolute Lymphocyte Count 1.35 X10^3/uL (0.83-4.51); Absolute Neutrophil Count 8.5 X10^3/uL (2.0-7.7); Basophil# 0.14 X10^3/uL; Basophil% 1.2 % (0-1); Eosinophil# 0.33 X10^3/uL; Eosinophils% 2.8 % (0-5); Hematocrit 54.9 % (40-54); Hemoglobin 17.7 g/dL (13.0-16.5); Lymphocyte # 1.35 X10^3/ul (0.83-4.51); Lymphocyte % 11.4 % (19-41); Mean Corp Hgb Conc 32.2 g/dL (32-36); Mean Corpuscular Hgb 32.7 pg (27.0-32.0); Mean Corpuscular Volume 101.5 fL (80-94); Mean Platelet Vol. 10.2 fl (6.2-12.0); Monocyte# 1.26 X10^3/uL; Monocyte% 10.7 % (0-10); NRBC Flagged by Analyzer 0 % (0-5); Neutrophil # 8.53 X10^3/uL (2.7-7.7); Neutrophil % 72.2 % (47-70); Platelet Count 179 K/mm3 (150-450); RBC Distribution Width CV 12.9 % (11.6-14.6); RBC Distribution Width SD 48.7 fl (35.1-43.9); Red Blood Count 5.41 M/mm3 (4.6-6.2); White Blood Count 11.8 K/mm3 (4.4-11.0)
[2023-02-02 11:47] LABS: Anion Gap 3 (5-15); BUN 11 mg/dL (7-18); BUN/Creat Ratio 7.5 RATIO (10-20); Calcium,Total 8.2 mg/dL (8.5-10.1); Chloride 104 mmol/L (98-107); Creatinine, Serum 1.46 mg/dL (0.70-1.30); EST Glomerular Filtration Rate 50 mL/min (>60); Est Glom Filt Rate - Afr Amer 61 mL/min (>60); Estimated Creatinine Clearance 45.83 ml/min; Glucose 121 mg/dL (74-106); Potassium 4.4 mmol/L (3.5-5.1); Sodium Level 135 mmol/L (136-145); Troponin-I HS (w/2H Reflex) 7 pg/mL (3.0-78.0)
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
[2023-02-02 12:12] VITALS: BP 109/80; PULSE 66; RESP 12; O2SAT 97
[2023-02-02 13:13] LABS: Reflex Troponin-HS? (from REC) Y
[2023-02-02 13:46] VITALS: BP 130/87; PULSE 62; RESP 16; O2SAT 97
[2023-02-02 13:53] LABS: Troponin-I HS 8 pg/mL (3.0-78.0)
--- NOTE | 2023-02-02 14:44 | ED.RN ---
called hospital transportation to get ride home. coming at 1514
--- NOTE | 2023-02-02 15:26 | ED.RN ---
Patient had to leave prior to discharge instruction paperwork due to availability of ride home.
== END 2023-02-02 15:28 | disposition home or self-care (01) ==
PROVIDERS: Emergency Provider Emergency Medicine; PCP Family Medicine; Visit Provider Emergency Medicine
DX: R07.9 Chest pain, unspecified (principal); J44.9 Chronic obstructive pulmonary disease, unspecified; I25.10 Atherosclerotic heart disease of native coronary artery without angina pectoris; N18.9 Chronic kidney disease, unspecified; E78.00 Pure hypercholesterolemia, unspecified; I12.9 Hypertensive chronic kidney disease with stage 1 through stage 4 chronic kidney disease, or unspecified chronic kidney disease; E66.9 Obesity, unspecified; Z79.02 Long term (current) use of antithrombotics/antiplatelets; Z79.899 Other long term (current) drug therapy; Z90.49 Acquired absence of other specified parts of digestive tract; Z95.5 Presence of coronary angioplasty implant and graft
CPT/HCPCS: 71045; 80048; 84484; 85025; 93005; 99285; A4216

== ENCOUNTER 2023-05-04 15:13 | Emergency (ER) | payer OTHER, SELFPAY ==
[2023-05-04 15:14] VITALS: BP 178/109; PULSE 81; RESP 18; TEMP 36.3; O2SAT 95; BMI 30.5
--- NOTE | 2023-05-04 15:27 | CT_ITS ---
INDICATION: rib pain EXAMINATION: CT CHEST WITHOUT CONTRAST - CT Chest W/O Contrast Injection TECHNIQUE: Helically acquired images were obtained of the chest. A radiation dose optimization technique was used for this scan. IV Contrast dosage and agent: None. COMPARISON: None. FINDINGS: LUNGS, PLEURA AND LARGE AIRWAYS: No masses, consolidation, or edema. No pleural effusion or thickening. No pneumothorax. THYROID: No thyroid lesions. HEART AND PERICARDIUM: Heart size is normal. No pericardial effusion. CORONARY ARTERIES: Coronary stent is observed. VESSELS: Minor atherosclerotic changes of the aorta without evidence for aneurysm. MEDIASTINUM AND JACOB: No mediastinal or hilar adenopathy. Esophagus is unremarkable. No hiatal hernia. UPPER ABDOMEN: No acute pathology. Gallbladder has been removed surgically BONES: Dorsal spine demonstrates advanced arthritic changes. There is an old incompletely healed fracture of the posterior left fourth rib CT/Chest without Contrast IMPRESSION: ASHD. Incompletely healed old left posterior rib fracture No acute abnormalities identified. Electronically Signed: Ti Langston MD at 16:41 EST Reading Location ID and State: [facility] / [place] Tel , Service support ,
--- NOTE | 2023-05-04 15:27 | CT_ITS ---
STUDY: CT BRAIN WITHOUT CONTRAST REASON FOR EXAM: Male, 72 years old. head injury RADIATION DOSAGE (If Supplied By Facility): CTDIvol = ( 44.99 ) mGy, DLP = ( 812.98 ) mGycm TECHNIQUE: Transaxial CT imaging of the brain was performed without administration of intravenous contrast material. Individualized dose optimization techniques were used for this CT. COMPARISON: January 08, 2022. FINDINGS: Soft tissue swelling of the scalp overlying the left forehead without associated skull fracture. Normal calvarium. Calcific plaquing of the cavernous carotids Mild atrophy and minor periventricular white matter ischemic changes.. Normal basal ganglia and thalami. Normal brainstem. Normal cerebellum. There is no intracranial hemorrhage. There are no findings of an acute ischemic infarction. Normal visualized paranasal sinuses. CT/Brain/Head without Contrast IMPRESSION: Soft tissue swelling of the left forehead without acute fracture or intracranial hemorrhage. Mild atrophy and minor periventricular white matter ischemic changes Electronically Signed: Ti Langston MD at 16:32 EST Reading Location ID and State: [facility] / [place] Tel , Service support ,
--- NOTE | 2023-05-04 15:27 | CT_ITS ---
STUDY: CT CERVICAL SPINE WITHOUT CONTRAST REASON FOR EXAM: Male, 72 years old. cervicalgia RADIATION DOSAGE (If Supplied By Facility): CTDIvol = ( 26.17 ) mGy, DLP = ( 426.36 ) mGycm TECHNIQUE: High resolution transaxial imaging was performed without contrast material. Sagittal and coronal images were reconstructed. Individualized dose optimization techniques were used for this CT. COMPARISON: None FINDINGS: Normal craniovertebral junction. Normal anterior atlantoaxial articulation. Normal odontoid process. Loss of normal lordotic curvature likely due to muscle spasm or positioning artifact. Normal vertebral bodies and posterior osseous elements. C2-3: Anterior endplate spurring. Normal disc height and morphology. Normal central canal and intervertebral neuroforamina. C3-4: Anterior endplate spurring. Normal disc height and morphology. Normal central canal and intervertebral neuroforamina. C4-5: Normal endplates. Normal disc height and morphology. Normal central canal and intervertebral neuroforamina. C5-6: Narrowed disc space and minor spurring.. Normal central canal and intervertebral neuroforamina. C6-7: Narrowed disc space and minor spurring. Normal central canal and intervertebral neuroforamina. C7-T1: Normal endplates. Normal disc height and morphology. Normal central canal and intervertebral neuroforamina. Normal visualized soft tissue structures. CT/Spine Cervical without Contras IMPRESSION: Moderate arthritic changes. No acute fracture or other significant abnormality Electronically Signed: Ti Langston MD at 16:35 EST ,
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
--- NOTE | 2023-05-04 15:35 | RAD_ITS ---
STUDY: X-RAY - LEFT HAND REASON FOR EXAM: Male, 72 years old. Fall. Pain. TECHNIQUE: 3 view(s) of the hand. COMPARISON: None. FINDINGS: There is no evidence of fracture or dislocation. There are mild degenerative changes in the interphalangeal joints. There are no radiodense foreign bodies. RAD/Hand Min 3 Views IMPRESSION: No fracture or dislocation in the left hand. Mild degenerative change in the interphalangeal joints. Electronically Signed: Loi Cook MD at 16:37 EST ,
[2023-05-04] MEDS: Ondansetron 4 MG/2 ML Vial IV (15:53)
[2023-05-04] MEDS: Morphine 4 MG/ML Syringe IV (15:54)
[2023-05-04 15:57] VITALS: BP 164/89; PULSE 74; RESP 20; O2SAT 96
--- NOTE | 2023-05-04 16:20 | RAD_ITS ---
STUDY: X-RAY - LEFT SHOULDER REASON FOR EXAM: Male, 72 years old. fall TECHNIQUE: 3 view(s) of the shoulder. COMPARISON: None. FINDINGS: Severely narrowed glenohumeral articulation. Severely narrowed subacromial space . Severely narrowed acromioclavicular joint. Normal acromion. There is posttraumatic deformity of the greater tuberosity which appears old.. The soft tissue structures are unremarkable. Normal visualized pulmonary apex. RAD/Shoulder min 2 Views IMPRESSION: Old posttraumatic deformity of the left humeral head and severe degenerative osteoarthritic changes and probable rotator cuff tendon tear No definitive evidence for acute fracture however CT or MRI may be useful for further evaluation if clinically warranted Electronically Signed: Ti Langston MD at 16:50 EST ,
[2023-05-04 17:13] VITALS: RESP 16
--- OUTSIDE RECORDS SUMMARY | 2023-05-04 23:45 | XMS RPT_ITS | CCD ---
Author Name Unknown Address [address] [place] [address] Organization [facility] Care Team Providers Care Slot Floorperson Name Role Phone Floyd XAVIER, Eloy Thakkar Unavailable Kerry Mullins Primary Care Provider Allergies Allergy Classification Reported Allergen(s) Allergy Type Date of Onset Reaction(s) Facility (2 sources) Cephalexin Drug Allergy 08-18-19 19 [facility] Work Phone: (1 source) Ciprofloxacin Drug Allergy 09-04-19 19 [facility] Work Phone: (1 source) Morphine Drug Allergy 09-04-19 19 [facility] Work Phone: (2 sources) Phenytoin Drug Allergy 08-21-19 19 [facility] Work Phone: (1 source) Pseudoephedrine Drug Allergy 09-04-19 19 [facility] Work Phone: (1 source) Sulfacetamide Drug Allergy 09-04-19 19 [facility] Work Phone: (1 source) CARBAMAZIPINE; Translations: [CARBAMAZIPINE] food allergy 09-04-19 19 [facility] Work Phone: (1 source) amLODIPine Drug Allergy 10-22-19 19 [facility] (1 source) Bee pollen Drug Allergy 10-22-19 19 Anaphylaxis [facility] Work Phone: (1 source) carBAMazepine Drug Allergy 08-18-19 19 [facility] Work Phone: (1 source) Ciprofloxacin Drug Allergy 08-21-19 [facility] Work Phone: (1 source) Latex Propensity to adverse reactions to drug 10-22-19 [facility] Work Phone: (1 source) Phenytoin Drug Allergy 07-11-19 Itching [facility] (1 source) Pseudoephedrine Drug Allergy 09-04-19 [facility] Work Phone: (1 source) Sesame oil Propensity to adverse reactions to drug 08-21-19 [facility] Work Phone: (1 source) Sucralfate Drug Allergy 08-18-19 Hives [facility] (1 source) Sulfonamides (Antibiotic) Propensity to adverse reactions to drug 08-21-19 [facility] Work Phone: (1 source) Morphine And Related Propensity to adverse reactions to drug 08-21-19 [facility] Work Phone: Medications Current Medications Medication Drug Class(es) Dates Sig (Normalized) Sig (Original) acetaminophen 325 mg oral tablet (3 sources) Start: 05-22-2021 acetaminophen (TYLENOL) tablet 650 mg Completed/Discontinued Medications Medication Drug Class(es) Dates Sig (Normalized) Sig (Original) aspirin 81 mg delayed release oral tablet (1 source) Platelet Aggregation Inhibitor, Nonsteroidal Anti-inflammatory Drug Start: 09-03-2018 ASPIR-LOW 81 MG TBEC 1 tablet daily ASPIRIN [id number] Eloy Barrientos MD bisacodyl 10 mg rectal suppository (1 source) Stimulant Laxative Start: 05-20-2021 End: 05-20-2021 bisacodyl (DULCOLAX) suppository 10 mg calcium chloride 0.0014 meq/ml / potassium chloride 0.004 meq/ml / sodium chloride 0.103 meq/ml / sodium lactate 0.028 meq/ml injectable solution (1 source) Start: 05-17-2021 End: 05-17-2021 lactated ringers infusion castor oil 0.788 mg/mg / burmese balsam 0.087 mg/mg topical ointment (1 source) Standardized Chemical Allergen Start: 08-21-2018 Balsam Bruce-[place] Oil (VENELEX) OINT ointment Apply topically daily 0 08/21/2018 Suspended codeine sulfate 60 mg oral tablet (1 source) Opioid Agonist Start: 09-03-2018 CODEINE SULFATE 60 MG TABS 1-2 tablet every 6 hours CODEINE SULFATE [id number] Eloy Barrientos MD cyclobenzaprine hydrochloride 10 mg oral tablet (1 source) Muscle Relaxant Start: 05-18-2021 End: 05-21-2021 cyclobenzaprine (FLEXERIL) tablet 5 mg 1 ml HYDROmorphone hydrochloride 1 mg/ml cartridge (4 sources) Opioid Agonist Start: 05-21-2021 End: 05-22-2021 HYDROmorphone (DILAUDID) injection 0.5 mg Problems Active Problems Problem Classification Problem Date Documented Da te Episodic/Chronic Anxiety disorders (1 source) Posttraumatic stress disorder; Translations: [Post-traumatic stress disorder, unspecified] Onset: 08-17-2018 08-17-2018 Chronic E Codes: Fall (2 sources) Fall; Translations: [Unspecified fall, initial encounter] Onset: 08-17-2018 Episodic Epilepsy; convulsions (2 sources) Seizure disorder; Translations: [Epilepsy, unspecified, intractable, without status epilepticus] Chronic Epilepsy; convulsions (4 sources) Seizure; Translations: [Unspecified convulsions] Onset: 08-17-2018 Episodic Genitourinary symptoms and ill-defined conditions (2 sources) Retention of urine; Translations: [Retention of urine, unspecified] Onset: 05-17-2021 Episodic Other aftercare (2 sources) Polypharmacy ; Translations: [Other extermination supervisor (current) drug therapy] Episodic Other aftercare (1 source) Patient encounter status; Translations: [Encounter for palliative care] 08-18-2018 Episodic Other fractures (2 sources) Fracture of lateral mass of first cervical vertebra; Translations: [Nondisplaced lateral mass fracture of first cervical vertebra, initial encounter for closed fracture] Episodic Other gastrointestinal disorders (2 sources) Drug-induced constipation; Translations: [Drug induced constipation] Episodic Other injuries and conditions due to external causes (2 sources) Traumatic injury; Translations: [Injury, unspecified, initial encounter] Onset: 05-16-2021 Episodic Other injuries and conditions due to external causes (2 sources) Fracture of bone; Translations: [Other injury of unspecified body region, initial encounter] Episodic Other nervous system disorders (2 sources) Acute pain due to injury; Translations: [Acute pain due to trauma] Episodic Other nervous system disorders (1 source) Abnormal gait; Translations: [Unspecified abnormalities of gait and mobility] 08-18-2018 Episodic Other nutritional; endocrine; and metabolic disorders (2 sources) Body mass index 30+ - obesity; Translations: [Obesity, unspecified] Onset: 05-20-2021 Chronic Residual codes; unclassified (2 sources) At risk of confusion; Translations: [Other specified personal risk factors, not elsewhere classified] Episodic Residual codes; unclassified (1 source) Amnesia; Translations: [Other amnesia] 08-18-2018 Episodic Spondylosis; intervertebral disc disorders; other back problems (1 source) Disseminated idiopathic skeletal hyperostosis; Translations: [Ankylosing hyperostosis [[place]], site unspecified] Onset: 09-03-2018 09-03-2018 Episodic Past or Other Problems Problem Classification Problem Date Documented Da te Episodic/Chronic Mycoses (1 source) Tinea cruris; Translations: [Tinea cruris] Onset: 08-17-2018 08-17-2018 Episodic Other fractures (1 source) Compression fracture of cervical spine; Translations: [Fracture of neck, unspecified, initial encounter] Onset: 08-17-2018 08-20-2018 Episodic Residual codes; unclassified (1 source) Insomnia; Translations: [Insomnia, unspecified] Onset: 08-17-2018 08-17-2018 Episodic Residual codes; unclassified (1 source) Pain; Translations: [Pain, unspecified] Onset: 08-18-2018 Resolved: 09-17-2018 09-17-2018 Episodic Unclassified (1 source) Problem Results Test Name Value Interpretation Reference Range Facil ity Vital Signs Date Time Vital Sign Value Performing Clinician Facility 05-23-2021 04:11-0400 Body temperature 98.8 [degF] Marcelo Anderson MD Work Phone: [facility] 05-23-2021 04:11-0400 Diastolic blood pressure 79 mm[Hg] Marcelo Anderson MD Work Phone: [facility] 05-23-2021 04:11-0400 Heart rate 62 /min Marcelo Anderson MD Work Phone: [facility] 05-23-2021 04:11-0400 Respiratory rate 14 /min Marcelo Anderson MD Work Phone: [facility] 05-23-2021 04:11-0400 SaO2% (BldA) [Mass fraction] 93 % Marcelo Anderson MD Work Phone: [facility] 05-23-2021 04:11-0400 Systolic blood pressure 141 mm[Hg] Marcelo Anderson MD Work Phone: [facility] 05-17-2021 15:21-0500 Body height 177.8 cm Marcelo Anderson MD Work Phone: [facility] 05-17-2021 07:00-0500 Body mass index (BMI) [Ratio] 30.72 kg/m2 Marcelo Anderson MD Work Phone: [facility] 05-17-2021 07:00-0500 Body weight 97.1 kg Marcelo Anderson MD Work Phone: [facility] NEGATED: Highlighted [id number] 10:25-0400 BMI (Body Mass Index) 26.06 kg/m2 Ashley Clemente SIDNEY [facility] Work Phone: NEGATED: Highlighted [id number] 10:25-0400 Body weight 82.1 kg Ashley Clemente PRESIDENT & CEO [facility] Work Phone: NEGATED: Highlighted [id number] 10:25-0400 Body weight 82 kg Ashley Clemente PRESIDENT & CEO [facility] Work Phone: NEGATED: Highlighted [id number] 10:25-0400 BP Diastolic 72 mm[Hg] Ashley Clemente PRESIDENT & CEO [facility] Work Phone: NEGATED: Highlighted [id number] 10:25-0400 BP Systolic 121 mm[Hg] Ashley Clemente PRESIDENT & CEO [facility] Work Phone: NEGATED: Highlighted [id number] 10: Height 177.8 cm Ashley Clemente LPN [facility] Work Phone: NEGATED: Highlighted [id number] 10:040 Height 178 cm Ashley Clemente LPN [facility] Work Phone: NEGATED: Highlighted [id number] 10:25-040 Pulse (Heart Rate) 54 /min Ashley Clemente LPN [facility] Work Phone: Encounters Encounter Date Encounter Type Care Provider Facility Start: 05-16-2021 End: 05-23-2021 Evaluation and management of inpatient Marcelo Anderson MD Work Phone: [facility] Procedures Date Procedure Procedure Detail Performing Clinician Start: 05-23-2021 Dup-scan xtr veins complete bilateral study June 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 Work Phone: Start: 05-23-2021 COVID-[address] LIGHT REPAIRER HELPER - EXTRACTOR MACHINE OPERATOR Work Phone: Start: 05-21-2021 PSA screening Marcelo woodward MD Work Phone: Plan of Treatment Date Care Activity Detail Author Start: 06-15-2030 DTaP/Tdap/Td vaccine (3 - Td or Tdap) DTaP/Tdap/Td vaccine (3 - Td or Tdap) [facility] Start: 05-20-2021 Annual Wellness Visit (AWV) Annual Wellness Visit (AWV) [facility] Start: 11-07-2020 Influenza vaccination Flu vaccine (#1) [facility] Start: 10-15-2018 End: 10-15-2018 Appointment Appointment [facility] Work Phone: Start: 2013 Abdominal aortic aneurysm screening AAA screen [facility] Start: 2013 Pneumococcal 65+ years Vaccine (1 of 1 - PPSV23) Pneumococcal 65+ years Vaccine (1 of 1 - PPSV23) [facility] Start: 1998 Shingles Vaccine (1 of 2) Shingles Vaccine (1 of 2) [facility] Start: 1993 Screening for malignant neoplasm of colon [facility] Start: 1960 Depression Screen Depression Screen [facility] Start: 1958 Lipid panel Lipid screen [facility] Start: 1953 COVID-19 Vaccine (1) COVID-19 Vaccine (1) [facility] Start: 1948 Hepatitis C screening [facility] Data [facility]] Initiate Oxygen Therapy Protocol Respiratory Care Routine As Needed until discontinued starting 05/16/2021 [facility] Work Phone: Payers Date Payer Category Payer Medicaid [employer] [place] [place] [employer] [place] [place] [id number] 2018-Present [phone] [address] [place] [address] [id number] 2018 Medicare MEDICARE MEDICAR E PART A AND B [id number] 2018-Present [phone] [address] [address] [place] [address] [id number] Social History Date Type Detail Facility Start: 08-17-2018 Tobacco smoking status NHIS Ex-smoker [employer] Work Phone: Start: 08-17-2018 Tobacco use and exposure Smokeless tobacco non-user [employer] Work Phone: Start: 05-17-2021 History SDOH Alcohol Frequency 1 [employer] Work Phone: Start: 1950 Sex Assigned At Not on file [facility] Work Phone: Exposure to SARS-CoV-2 (event) Not sure [employer] Work Phone: NEGATED: Highlighted rowStart: 09-03-2018 End: 09-03-2018 Alcohol use Alcohol use [facility] Work Phone: NEGATED: Highlighted rowStart: 09-03-2018 End: 09-03-2018 Details of drug misuse behavior Details of drug misuse behavior [facility] Work Phone: NEGATED: Highlighted rowStart: 09-03-2018 End: 09-03-2018 Assertion Former smoker [facility] Work Phone: NEGATED: Highlighted rowStart: 09-03-2018 End: 09-03-2018 How many days of moderate to strenuous exercise, like a brisk walk, did you do in the last 7 days? How many days of moderate to strenuous exercise, like a brisk walk, did you do in the last 7 days? [facility] Work Phone: Discharge summary note 05-23-2021 Note Date & Type Note Facility 05-23-2021 Note Department of Trauma / Critical Care Discharge Summary Name: Bear Shine Date: 06/03/2021 10:15 AM : 1950 Age/Sex: 71 y.o. male Admit Date: 05/16/2021 Discharge Date: 05/23/2021 Attending: Natalia Molina MD Discharge Diagnosis: 1. Closed nondisplaced lateral mass fracture of first cervical vertebra, initial encounter ([facility]) Patient Active Problem List Diagnosis ? Cervical compression fracture, initial encounter ([facility]) ? Fungal infection of the groin ? Insomnia ? PTSD (post-traumatic stress disorder) ? Fall ? Seizure (HCC) ? Impaired gait ? Acute traumatic pain ? Memory loss ? Palliative care encounter ? Post-traumatic seizures (HCC) ? Trauma ? Urinary retention ? Obesity (BMI 30-39.9) ? Closed nondisplaced lateral mass fracture of first cervical vertebra (HCC) ? Fracture ? Polypharmacy ? Seizures (HCC) ? At risk for confusion ? Drug-induced constipation ? Breakthrough seizure (HCC) Body mass index is 30.72 kg/m?. BMI Classification: Obese (BMI 30.0-39.9) Reason for Hospitalization: The patient was admitted for mechanical fall. Hospital Course (Care, treatment and services provided): Please see H&P and prior notes for more detailed summary of previous investigations and clinical assessment prior to this admission. Brief HPI 71 y.o.?male?status post fall. ?The incident happened around 05/16?on 03:00?at home. ?When the event happened the patient was with his dog Michaelle and lost balance and fell and hit his dog's cage. Denies LOC. ? Hospital course: Patient presented as a direct admit to T2 ICU as a transfer from [place] after work up was completed. Patient found to have lateral mass fracture. Patient had a CTA neck ordered to be completed with his repeat ct head. [facility] was consulted. Patient deemed non op and patient to remain in c collar until follow up outpatient and cleared by [facility]. Patient ordered a swallow evaluation in the setting of C collar at all times. Patient passed swallow for regular diet, thin liquids. Patient's repeat ct head was unremarkable. Patient was evaluated by PT and OT-both of whom recommended in patient therapy. Patient was transferred to floor on 05/18/2021. Patient continued to progress. Patient was tolerating diet and pain was controlled on po pain regimen prior to discharge. Patient was discharged to [facility] in stable condition on 05/23/2021. Consultations: Neurology Palliative care [facility] PCP: KERRY MULLINS Recommended Follow-ups: Trauma PCP Neuorology [facility] Treatments and Procedures with outcomes: Labs: Data Review Data CBC with Differential: Lab Results Component Value Date WBC 7.7 05/19/2021 RBC 4.99 05/19/2021 HGB 16.1 05/19/2021 HCT 49.9 05/19/2021 PLT 135 05/19/2021 CMP: Lab Results Component Value Date NA 135 05/19/2021 K 4.2 05/19/2021 CL 97 05/19/2021 CO2 35 05/19/2021 BUN 11 05/19/2021 CREATININE 1.06 05/19/2021 GLUCOSE 80 05/19/2021 PROT 7.1 05/21/2021 LABALBU 3.9 05/21/2021 CALCIUM 8.6 05/19/2021 BILITOT 0.7 05/21/2021 ALKPHOS 79 05/21/2021 AST 44 05/21/2021 ALT 21 05/21/2021 BMP: Hepatic Function Panel: Ionized Calcium: Lab Results Component Value Date IONCA 4.10 08/18/2018 Magnesium: Lab Results Component Value Date MG 2.1 08/19/2018 Phosphorus: Lab Results Component Value Date PHOS 2.6 08/19/2018 PT/INR: No results found for: PROTIME, INR PTT: No results found for: APTT[APTT Last 3 Troponin: No results found for: TROPONINI Urine Culture: No components found for: CURINE Blood Culture: No components found for: CBLOOD, CFUNGUSBL Blood Culture from Central Line: No components found for: CBLOODLN Stool Culture: No components found for: CSTOOL Sputum Culture: No components found for: CSPUTUM Sputum Culture for AFB: No components found for: CAFBSM Wound Culture: n/a Procedures: none Significant Imaging Results: XR CERVICAL SPINE (2-3 VIEWS) Result Date: 05/18/2021 [id number]iology ACCESSION EXAM DATE/TIME PROCEDURE ORDERING PROVIDER [id number] 05/17/2021 09:44 EST CR Spine Cervical 2 or 3 MD JAMIL, NERISSA Views CPT code 26410 Reason For Exam (CR Spine Cervical 2 or 3 Views) AP/Lateral in collar C1 Fx Report CERVICAL SPINE: CLINICAL INDICATION: C1 fracture TECHNIQUE: AP, lateral nd open mouth plus flexion and extension views COMPARISON: None FINDINGS: Exam quality: The study is limited due to the patient's body habitus, overlying radiopaque structures and inability to optimally position the patient. . The C1 fracture is not readily identified on these conventional radiographs. There is no malalignment at the articulation between C1 and the occiput and C1 and C2. There is limited visualization below C4 on the lateral views. Marked anterior spurring is noted at C2-C4. Disc space narrowing is (more content not included)... [facility] Discharge instructions 05-23-2021 Discharge Instr - ActivityDischarge Instr - DietDischarge Instr - COCAdditional Instructions Note Date & Type Note Facility 05-23-2021 Hospital Discharg e instructions Marnie Larson APRN - [facility] - 05/23/2021 10:45 AM EDT You have been diagnosed with a concussion. Upon discharge you can expect post-concussion symptoms. These include but are not limited to: - Thinking/remembering - difficulty thinking clearly, remembering new info, and concentrating - Physical - headache, blurry vision, dizziness, sensitivity to light and noises, feeling tired, balance problems - Emotional, mood - irritability, sadness, emotional, nervous or anxiety - Sleep - sleeping more than usual, sleep less then usual, trouble falling asleep To feel better: - Get plenty of sleep at night, and take it easy during the day - Avoid physically demanding activities or those that require a lot of concentration - Do not drive, operate heavy equipment until cleared by your doctor - Do not drink alcohol While taking narcotic medications be sure to: Not operate heavy machinery Do not drive while taking narcotic medication Return to the emergency department if: You are very drowsy. Your speech is slurred. You have trouble thinking, remembering things, or focusing. Contact your healthcare provider if: You want help or information on how to stop using or abusing narcotics. Follow up with your healthcare provider as directed: Write down your questions so you remember to ask them during your visits. Narcotic intoxication usually lasts for several hours. You may have the following during or after you use narcotics: Behavior or mood changes, such as a great feeling followed by the feeling that you do not care about anyone or anything Trouble thinking, remembering things, or focusing Small pupils Feeling very drowsy Slurred speech Narcotic withdrawal occurs if you stop using narcotics after using them heavily over a period of time. Signs and symptoms may begin within minutes or days and continue for days or even months: Depression and anxiety Nausea or vomiting Muscle aches Watery eyes or runny nose Large pupils Sweating or goosebumps on your skin Diarrhea Fever Trouble sleeping YAHIR Patel CNP - 05/23/2021 10:44 AM EDT Good nutrition is important when healing from an illness, injury, or surgery. Follow any nutrition recommendations given to you during your hospital stay. If you were given an oral nutrition supplement while in the hospital, continue to take this supplement at home. You can take it with meals, in-between meals, and/or before bedtime. These supplements can be purchased at most local grocery stores, pharmacies, and [email or web address]. If you have any questions about your diet or nutrition, call the hospital and ask for the dietitian. General diet Leidy Leary RN - 05/23/2021 8:37 AM EDT Images from the original note were not included. 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 No Past Surgical History: Past Surgical History: Procedure Laterality Date APPENDECTOMY CARDIAC CATHETERIZATION CHOLECYSTECTOMY TURP Immunization History: There is no immunization history on file for this patient. Active Problems: Patient Active Problem List Diagnosis Code Cervical compression fracture, initial encounter ([facility]) S12.9XXA Fungal infection of the groin B35.6 Insomnia G47.00 PTSD (post-traumatic stress disorder) F43.10 Fall W19.XXXA Seizure ([facility]) R56.9 Impaired gait R26.9 Acute traumatic pain G89.11 Memory loss R41.3 Palliative care encounter Z51.5 Post-traumatic seizures ([facility]) R56.1 Trauma T14.90XA Urinary retention R33.9 Obesity (BMI 30-39.9) E66.9 Closed nondisplaced lateral mass fracture of first cervical vertebra ([facility]) S12.041A Fracture T14.8XXA Polypharmacy Z79.899 Seizures (HCC) R56.9 At risk for confusion Z91.89 Drug-induced constipation K59.03 Breakthrough seizure ([facility]) G40.919 Isolation/Infection: Isolation No Isolation Patient Infection Status None to display Nurse Assessment: Last Vital Signs: BP (!) 141/79 Pulse 62 Temp 98.8 F (37.1 C) (Temporal) Resp 14 Ht 5' 10 (1.778 m) Wt 214 lb 1.1 oz (97.1 kg) SpO2 93% BMI 30.72 kg/m Last documented pain score (0-10 scale): Pain Level: 7 Last Weight: Wt Readings from Last 1 Encounters: 05/17/21 214 lb 1.1 oz (97.1 kg) Mental Status: oriented IV Access: - None Nursing Mobility/ADLs: Walking Assisted Transfer Assisted Bathing Assisted Dressing Assisted Toileting Assisted Feeding Independent Gallery Manager Independent Med Delivery whole Wound Care Documentation and Therapy: Wound 05/16/21 Head Right (Active) Wound Image 05/16/21 2340 Wound Etiology Traumatic 05/22/212033 Dressing Status Other (Comment) 05/22/212033 Wound Cleansed Not Cleansed 05/18/211999 Dressing/Treatment Open to air 05/18/212324 Wound Assessment Dry;Other (Comment) 05/18/211999 Drainage Amount None 05/22/212033 Drainage Description Serosanguinous;Black 05/21/21 1035 Odor None 05/22/212033 Millicent-wound Assessment Intact 05/21/212199 Number of days: 6 Wound 05/16/21 Elbow Right (Active) Wound Image 05/16/21 2340 Wound Etiology Traumatic 05/22/2121 Dressing Status Clean;Dry;Intact 05/18/212324 Dressing/Treatment Open to air 05/21/212199 Wound Assessment Grover/red 05/18/211999 Drainage Amount None 05/18/211999 Odor None 05/18/211999 Millicent-wound Assessment Dry/flaky 05/18/211999 Number of days: 6 Wound 05/16/21 Toe (Comment which one) Left Left 5th toe (Active) Wound Image 05/16/21 2340 Wound Etiology Traumatic 05/21/21 1035 Dressing Status Clean;Dry;Intact 05/18/212324 Dressing/Treatment Open to air 05/18/215 Wound Assessment Grover/red 05/18/211999 Drainage Amount None 05/18/21 2000 Odor None 05/18/211999 Millicent-wound Assessment Intact 05/18/211999 Number of days: 6 Elimination: Continence: Bowel: No Bladder: No Urinary Catheter: None Colostomy/Ileostomy/Ileal Conduit: No Date of Last BM: 05/23/2021 Intake/Output Summary (Last 24 hours) at 05/23/2021 0834 Last data filed at 05/23/2021 0729 Gross per 24 hour Intake -- Output 1600 ml Net -1600 ml I/O last 3 completed shifts: In: - Out: 1350 [Urine:1350] Safety Concerns: At Risk for Falls Impairments/Disabilities: None Nutrition Therapy: Current Nutrition Therapy: - Oral Diet: General Routes of Feeding: Oral Liquids: No Restrictions Daily Fluid Restriction: no Last Modified Barium Swallow with Video (Video Swallowing Test): not done Treatments at the Time of Hospital Discharge: Respiratory Treatments: n/a Oxygen Therapy: is not on home oxygen therapy. Ventilator: - No ventilator support Rehab Therapies: Physical Therapy Weight Bearing Status/Restrictions: No weight bearing restrictions Other Medical Equipment (for information only, NOT a DME order): {EQUIPMENT:[id number]} Other Treatments: n/a Patient's personal belongings (please select all that are sent with patient): Clothing lead housekeeper RN SIGNATURE: CASE MANAGEMENT/SOCIAL WORK SECTION Inpatient Status Date: Readmission Risk Assessment Score: Readmission Risk Risk of Unplanned Readmission: 10 Discharging to Facility/ Agency Name: [facility] Address: [address] [place] [address] Dialysis Facility (if applicable) Name: Address: Dialysis Schedule: Phone: Fax: 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 Update Admission H&P: No change in H&P PHYSICIAN SIGNATURE: Aram Encinas MD - 05/17/2021 Images from the original note were not included. Orthopaedic Surgery Discharge Instructions: -NWB LUE. Sling for comfort. -Activity as tolerated, except avoid heavy lifting/pulling/otherwise strenuous activity -Wear the cervical collar at all times do not take it off. Check skin around the collar for signs of skin breakdown. -Follow-up outpatient with Dr. Barrientos in 10-14 days. The office contact information is provided in your paperwork. -IF you experience SEVERE worsening of pain in short period of time and/or significant numbness/weakness in extremities or new loss of bowel or bladder function please call the office or return to the emergency department -Take medications as prescribed by the hospital doctors -Follow up with Dr. Simpson in 1-2 weeks documented in this encounter [facility] Work Phone: History of Present illness Narrative 05-23-2021 Marnie Larson, YAHIR Pichardo EXTRACTOR MACHINE OPERATOR - 05/23/2021 6:[address], LD - 05/22/2021 3:04 PM Catracho Kong, CERAMIC COATER MACHINE - 05/22/2021 2:10 PM YAHIR Omer EXTRACTOR MACHINE OPERATOR - 05/22/2021 1:48 PM EDT Note Date & Type Note Facility 05-23-2021 History of Present illness Narrative Daily Trauma Progress Note [facility] 05/23/2021 6:24 AM Admit Date: 05/16/2021 Post Trauma Day 7 Fall SH HISTORY OF TRAUMATIC EVENT: 71 y.o. male status post fall. The incident happened around 05/16 on 03:00 at home. When the event happened the patient was with his dog Michaelle and lost balance and fell and hit his dog's cage. Denies LOC. INJURIES: - C1 lateral mass and posterior arch fx PROCEDURES: None INCIDENTAL FINDINGS: Carotid stenosis CHIEF COMPLAINT: Neck pain PREVIOUS 24 HOUR EVENTS: -Break through seizure, PTSD-cleared by neuro critical care Consults: IP CONSULT TO ORTHOPEDIC SURGERY IP CONSULT TO GERIATRICS IP CONSULT TO PALLIATIVE CARE IP CONSULT TO NEUROLOGY MEDICATIONS: Current Facility-Administered Medications Medication Dose Route Frequency Provider Last Rate Last Admin bacitracin-polymyxin b (POLYSPORIN) ophthalmic ointment Topical BID YAHIR Jones CNP Given at 05/22/212020 strzykwiqs-vrtxyhmkvqfhr-cpzcvlfo (FIORICET, ESGIC) per tablet 1 tablet 1 tablet Oral Q6H PRN YAHIR Jones CNP acetaminophen (TYLENOL) tablet 650 mg 650 mg Oral 3 times per day YAHIR Jones CNP 650 mg at 05/23/21 06 nicotine (NICODERM CQ) 21 MG/24HR 1 patch 1 patch TransDERmal Daily YAHIR Jones CNP 1 patch at 05/22/21 193 naloxone (NARCAN) injection 0.4 mg 0.4 mg IntraVENous PRN YAHIR Jones CNP pregabalin (LYRICA) capsule 25 mg 25 mg Oral BID Duy Caldera MD 25 mg at 05/22/212014 isosorbide dinitrate (ISORDIL) tablet 30 mg 30 mg Oral Daily June Mcmahon APRN - TREE CUTTER 30 mg at 05/22/21 0833 amLODIPine (NORVASC) tablet 5 mg 5 mg Oral Daily June Mcmahon APRN - TREE CUTTER 5 mg at 05/22/21 0834 polyethylene glycol (GLYCOLAX) packet 17 g 17 g Oral Daily June Mcmahon APRN - TREE CUTTER 17 g at 05/22/21 0832 senna (SENOKOT) tablet 8.6 mg 1 tablet Oral Nightly June Mcmahon APRN - TREE CUTTER 8.6 mg at 05/22/21 2019 tamsulosin (FLOMAX) capsule 0.4 mg 0.4 mg Oral Daily June Mcmahon APRN - TREE CUTTER 0.4 mg at 05/22/21 0832 oxyCODONE (ROXICODONE) immediate release tablet 10 mg 10 mg Oral Q4H PRN Bienvenido Mcleod MD 10 mg at 05/23/21 021 lidocaine 4 % external patch 1 patch 1 patch TransDERmal Daily Bienvenido Mcleod MD 1 patch at 05/22/21 0839 enoxaparin (LOVENOX) injection 30 mg 30 mg SubCUTAneous BID Bienvenido Mcleod MD 30 mg at 05/22/212015 clopidogrel (PLAVIX) tablet 75 mg 75 mg Oral Daily Bienvenido Mcleod MD 75 mg at 05/22/21 0837 labetalol (NORMODYNE;TRANDATE) injection 10 mg 10 mg IntraVENous Q4H PRN Bienvenido Mlceod MD 10 mg at 05/20/212135 hydrALAZINE (APRESOLINE) injection 10 mg 10 mg IntraVENous Q4H PRN Bienvenido Mcleod MD docusate sodium (COLACE) capsule 100 mg 100 mg Oral BID Bienvenido Mcleod MD 100 mg at 05/22/212015 melatonin tablet 3 mg 3 mg Oral Nightly Bienvenido Mcleod MD 3 mg at 05/22/212018 PHENobarbital (LUMINAL) tablet 32.4 mg 32.4 mg Oral TID Bienvenido Mcleod MD 32.4 mg at 05/22/212016 PHENobarbital (LUMINAL) tablet 64.8 mg 64.8 mg Oral BID Bienvenido Mcleod MD 64.8 mg at 05/22/212015 diazePAM (VALIUM) tablet 10 mg 10 mg Oral TID Bienvenido Mcleod MD 10 mg at 05/22/212014 sodium chloride flush 0.9 % injection 5-40 mL 5-40 mL IntraVENous 2 times per day Bienvenido Mcleod MD 10 mL at 05/22/21 2018 sodium chloride flush 0.9 % injection 5-40 mL 5-40 mL IntraVENous PRN Bienvenido Mcleod MD 0.9 % sodium chloride infusion 25 mL IntraVENous PRN Bienvenido Mcleod MD ondansetron (ZOFRAN-ODT) disintegrating tablet 4 mg 4 mg Oral Q8H PRN Bienvenido Mcleod MD Or ondansetron (ZOFRAN) injection 4 mg 4 mg IntraVENous Q6H PRN Bienvenido Mcleod MD miconazole (MICOTIN) 2 % powder Topical BID Bienvenido Mcleod MD Given at 05/22/212019 ARE THERE PERTINENT UPDATES TO PAST,FAMILY, OR SOCIAL HISTORY?: No Subjective: Complaining of headache today. States he was able to get some rest over night. His neck pain is well controlled but he believes the pain is radiating to his head. No seizure activity overnight. Review of Systems Constitutional: Positive for activity change. HENT: Negative. Respiratory: Negative for cough and shortness of breath. Cardiovascular: Negative. Negative for chest pain. Gastrointestinal: Negative for constipation. Genitourinary: Negative. Negative for difficulty urinating. Musculoskeletal: Positive for arthralgias, neck pain and neck stiffness. Chronic low back pain Skin: Positive for wound. Neurological: Positive for headaches. Psychiatric/Behavioral: Negative. Negative for confusion. All other systems reviewed and are negative. PHQ In the last 2 weeks have you had: 1. Little interest or pleasure in doing things No 2. Been feeling down, depressed, or hopeless No If greater then 0, place CLP consult Date PHQ completed: Objective: Patient Vitals for the past 24 hrs: BP Temp Temp src Pulse Resp SpO2 05/23/21 0411 (!) 141/79 98.8 F (37.1 C) Temporal 62 14 93 % 05/22/21 2116 (!) 145/81 98.6 F (37 C) Temporal 62 18 95 % 05/22/21 1759 (!) 170/98 Temporal 70 05/22/21 1706 (!) 191/92 98 F (36.7 C) Temporal 70 22 95 % 05/22/21 1315 98.2 F (36.8 C) Temporal 68 05/22/21 0938 108/79 98.4 F (36.9 C) Temporal 69 22 94 % 05/22/21 0821 133/66 Temporal 57 96 % Last BM: 05/20 Diet: Regular CVP: No Chest Tubes: R: No L: No PHYSICAL: Physical Exam Vitals reviewed. Constitutional: Appearance: Normal appearance. HENT: Head: Normocephalic. Comments: Abrasion to forehead C collar in place Right Ear: External ear normal. Left Ear: External ear normal. Nose: Nose normal. Mouth/Throat: Mouth: Mucous membranes are moist. Pharynx: Oropharynx is clear. Eyes: Conjunctiva/sclera: Conjunctivae normal. Neck: Comments: Elgin collar in place Cardiovascular: Rate and Rhythm: Normal rate. Pulses: Normal pulses. Pulmonary: Effort: Pulmonary effort is normal. Abdominal: General: Abdomen is flat. Palpations: Abdomen is soft. Tenderness: There is no abdominal tenderness. Musculoskeletal: General: Normal range of motion. Right lower leg: No edema. Left lower leg: No edema. Skin: General: Skin is warm and dry. Capillary Refill: Capillary refill takes 2 to 3 seconds. Comments: Scalp abrasion noted Neurological: General: No focal deficit present. Mental Status: He is alert and oriented to person, place, and time. Mental status is at baseline. Psychiatric: Mood and Affect: Mood normal. Behavior: Behavior normal. Sutures or tammy? No O2: 3 L NC, states he has home O2 that he uses prn / / / Data Review Data CBC with Differential: Lab Results Component Value Date WBC 7.7 05/19/2021 RBC 4.99 05/19/2021 HGB 16.1 05/19/2021 HCT 49.9 05/19/2021 PLT 135 05/19/2021 CMP: Lab Results Component Value Date NA 135 05/19/2021 K 4.2 05/19/2021 CL 97 05/19/2021 CO2 35 05/19/2021 BUN 11 05/19/2021 CREATININE 1.06 05/19/2021 GLUCOSE 80 05/19/2021 PROT 7.1 05/21/2021 LABALBU 3.9 05/21/2021 CALCIUM 8.6 05/19/2021 BILITOT 0.7 05/21/2021 ALKPHOS 79 05/21/2021 AST 44 05/21/2021 ALT 21 05/21/2021 BMP: Hepatic Function Panel:Ionized Calcium: Lab Results Component Value Date IONCA 4.10 08/18/2018 Magnesium: Lab Results Component Value Date MG 2.1 08/19/2018 Phosphorus: Lab Results Component Value Date PHOS 2.6 08/19/2018 PT/INR: No results found for: PROTIME, INR PTT: No results found for: APTT[APTT Last 3 Troponin: No results found for: TROPONINI Urine Culture: No components found for: CURINE Blood Culture: No components found for: CBLOOD, CFUNGUSBL Blood Culture from Central Line: No components found for: CBLOODLN Stool Culture: No components found for: CSTOOL Sputum Culture: No components found for: CSPUTUM Sputum Culture for AFB: No components found for: CAFBSM Wound Culture: Na Radiology: XR CERVICAL SPINE (2-3 VIEWS) Result Date: 05/18/2021 Patient Name: BEAR SHINE Diagnostic Radiology ACCESSION EXAM DATE/TIME PROCEDURE ORDERING PROVIDER [id number] 05/17/2021 09:44 EST CR Spine Cervical 2 or 3 MD NEGRON BLAKE Views CPT code 54325 Reason For Exam (CR Spine Cervical 2 or 3 Views) AP/Lateral in collar C1 Fx Report CERVICAL SPINE: CLINICAL INDICATION: C1 fracture TECHNIQUE: AP, lateral nd open mouth plus flexion and extension views COMPARISON: None FINDINGS: Exam quality: The study is limited due to the patient's body habitus, overlying radiopaque structures and inability to optimally position the patient. . The C1 fracture is not readily identified on these conventional radiographs. There is no malalignment at the articulation between C1 and the occiput and C1 and C2. There is limited visualization below C4 on the lateral views. Marked anterior spurring is noted at C2-C4. Disc space narrowing is noted at C2-C3 and C3-C4. The retropharyngeal and retrotracheal soft tissues are unremarkable. IMPRESSION: C1 fractures are not appreciable on these conventional radiographs. Anterior spurring about the upper cervical vertebrae and disc space narrowing. Report Dictated on --- Final --- Dictated: 05/18/2021 5:25 am Dictating Physician: MD NIELSON JEFFREY Signed Date and Time: 05/18/2021 5:31 am Signed by: MD NIELSON JEFFREY Transcribed Date and Time: 05/18/2021 5:25 XR SHOULDER LEFT 1 VW Result Date: 05/17/2021 Patient Name: BEAR SHINE [facility]#: [id number] Diagnostic Radiology ACCESSION EXAM DATE/TIME PROCEDURE ORDERING PROVIDER [id number] 05/17/2021 02:25 EST CR Shoulder 1 View Left MD NEGRON BLAKE CPT code 15445 Reason For Exam (CR Shoulder 1 View Left) Axillary L Shoulder Report LEFT SHOULDER: CLINICAL INDICATION: Fall injury with pain. TECHNIQUE: Axillary view only COMPARISON: None. FINDINGS: There is some cortical irregularity about the greater tuberosity. No other fracture or dislocation is identified. IMPRESSION: Limited axillary view demonstrate some cortical irregularity about the greater tuberosity but no definite fracture or dislocation. Report Dictated on --- Final --- Dictated: 05/17/2021 3:51 am Dictating Physician: MD NIELSON JEFFREY Signed Date and Time: 05/17/2021 3:53 am Signed by: MD NIELSON JEFFREY Transcribed Date and Time: 05/17/2021 3:51 CT HEAD WO CONTRAST Result Date: 05/17/2021 [id number] Tomography ACCESSION EXAM DATE/TIME PROCEDURE ORDERING PROVIDER [id number] 05/17/2021 05:[address] Head or Brain w/o [id number] -PIA, MIGUEL ANGEL Contrast CPT code 80920 Reason For Exam (CT Head or Brain w/o Contrast) repeat CT head, fall on blood thinners, forehead abrasion, known C1 fx. No earlier than 04:[address] HEAD: CLINICAL INDICATION: Trauma with known C1 fracture with previous images from [facility] TECHNIQUE: Transaxial CT sequence performed through the head with 3 mm reconstruction. Sagittal and Coronal reconstruction images included. Dose reduction employed with automated exposure control. COMPARISON: None FINDINGS: Ventricles and Extra-axial spaces: Normal in size and morphology for the patient's age. No abnormal extracerebral collection identified. Cerebral and cerebellar parenchyma: No regions of abnormal increased or decreased attenuation, mass lesion or evidence of acute infarct. Hemorrhage: None Brainstem: Normal Visualized Paranasal sinuses: Normal. Mastoid air cells: Normal Visualized Orbits: Normal Calvarium and skull base: There is no CT evidence of fracture of the calvarium. A comminuted fracture of the left lateral mass of C1 extends into the posterior lamina. There is a triangular-shaped fragment measuring up to 1.3 cm projecting into the left side of the spinal canal IMPRESSION: 1. No acute intracranial abnormality 2. C1 fracture on the left. Computed Tomography Report Report Dictated on --- Final --- Dictated: 05/17/2021 6:17 am Dictating Physician: MD NIELSON JEFFREY Signed Date and Time: 05/17/2021 6:21 am Signed by: MD NIELSON JEFFREY Transcribed Date and Time: 05/17/2021 6:18 CTA NECK W WO CONTRAST Result Date: 05/17/2021 [id number] Tomography ACCESSION EXAM DATE/TIME PROCEDURE ORDERING PROVIDER [id number] 05/17/2021 05:31 EST CTA Neck w/ + w/o MD NEGRON BLAKE Contrast CPT code 98225 Q9967 Reason For Exam (CTA Neck w/ + w/o Contrast) C1 Fracture Report CT ANGIOGRAPHY NECK: CLINICAL INDICATION: Trauma with known C1 fracture with previous images from [facility] TECHNIQUE: Multidetector spiral transaxial sequence was performed from the upper mediastinum through the skull base during dynamic intravenous infusion of 75 mL of nonionic contrast media, injected at a high flow rate following a heel cementer machine study. Images were reconstructed with soft tissue and bone algorithm at 0.5 mm transaxial destruction. Multiplanar and 3D MIP reconstruction was performed concurrently on an independent viewing workstation with 1 mm reconstruction. Measurement of carotid stenosis is a ratio based on conventional angiographic data from the NASCET trials with the smallest caliber of the internal carotid as the numerator and normal post-stenotic internal carotid caliber as denominator. Dose reduction was employed with automated exposure control. COMPARISON: Outside CT examination FINDINGS: Aortic arch and great vessel origins: Normal. Right common and external carotid: Normal. Right internal carotid: Minimal stenosis near the origin in the range of less than 30 percent. Left common and external carotid: Normal. Left internal carotid: Minimal stenosis near the origin in the range of less than 30 percent. Vertebral arteries: Patent flow is noted within both vertebral arteries. The left distal vertebral artery courses directly adjacent to the comminuted fracture of the left lateral mass of C1. The vessel enters the spinal canal at C1 and remains patent into the basilar artery. No focal stenotic segment or dissection is identified. Neck: No cystic or solid mass within the deep or superficial spaces of the neck. Unremarkable salivary glands and thyroid. No enlarged lymph nodes. No abnormality within the airways. Unremarkable lung apices. Computed Tomography Report Comminuted fracture the left lateral mass of C1 is noted as identified on CT head and prior CT cervical spine. There is also anterior spurring with flowing ossification about the vertebrae from C3 through C7. IMPRESSION: 1. Patent left vertebral artery without evidence of traumatic stenosis or dissection near the site of the C1 fracture 2. Patent right vertebral artery along with patent carotid arteries without hemodynamically significant internal carotid artery stenosis 3. No intracranial arterial abnormality. Report Dictated on --- Final --- Dictated: 05/17/2021 6:22 am Dictating Physician: MD NIELSON JEFFREY Signed Date and Time: 05/17/2021 6:35 am Signed by: MD NIELSON JEFFREY Transcribed Date and Time: 05/17/2021 6:22 CT THORACIC SPINE WO CONTRAST Result Date: 05/17/2021 [id number] Computed Tomography ACCESSION EXAM DATE/TIME PROCEDURE ORDERING PROVIDER [id number] 05/17/2021 05:[address] Spine Thoracic w/o MD JAMIL, NERISSA Contrast CPT code 92914 Reason For Exam (CT Spine Thoracic w/o Contrast) Back pain - Trauma with DISH Report CT THORACIC AND LUMBAR SPINE : CLINICAL INDICATION: Trauma with back pain TECHNIQUE: Transaxial sequence through the thoracic and separately through the lumbar spine with 1 mm reconstruction interval. Multiplanar reconstruction imaging was performed. COMPARISON: None FINDINGS: The vertebrae and joints: No wedge fracture or compression deformity of the thoracic and lumbar vertebral bodies is noted. There are large anterior marginal osteophytes bridging the vertebrae from T3 through L2. There is some sclerosis along the anterior aspect of these vertebrae as well. No other lytic bone lesion is identified. The facet joints demonstrate minor hypertrophic change at L4-L5 and L5-S1. Intervertebral disc spaces and spinal canal: Generalized disc space narrowing is noted throughout the thoracic levels. Lumbar disc levels demonstrate minor narrowing at L4-L5. There is no widening of the disc spaces. There is minor bony foraminal spinal stenosis at L4-L5 without other bony spinal stenosis. Soft tissues: Visualized portions of the lungs demonstrate dependent atelectasis. There is no consolidation. Cardiac chambers are relatively large. There is coronary artery calcification. No mediastinal or hilar mass is noted on this noncontrast study. Adrenals, pancreas and kidneys demonstrate no abnormality. There is dense atherosclerotic calcified abdominal aorta. No enlarged retroperitoneal lymph nodes are noted. IMPRESSION: 1. No thoracic or lumbar fracture identified 2. Flowing ossification about the anterior aspect of the vertebrae from T3-L2 corresponding to diffuse idiopathic skeletal hyperostosis. 3. Minor bony spinal stenosis at L4-L5 Computed Tomography Report Report Dictated on --- Final --- Dictated: 05/17/2021 6:36 am Dictating Physician: MD NIELSON JEFFREY Signed Date and Time: 05/17/2021 6:42 am Signed by: MD NIELSON JEFFREY Transcribed Date and Time: 05/17/2021 6:36 CT LUMBAR SPINE WO CONTRAST Result Date: 05/17/2021 [id number] Computed Tomography ACCESSION EXAM DATE/TIME PROCEDURE ORDERING PROVIDER [id number] 05/17/2021 05:[address] Spine Lumbar w/o MD NEGRON BLAKE Contrast CPT code 22271 Reason For Exam (CT Spine Lumbar w/o Contrast) Back Pain w/ DISH Report CT THORACIC AND LUMBAR SPINE : CLINICAL INDICATION: Trauma with back pain TECHNIQUE: Transaxial sequence through the thoracic and separately through the lumbar spine with 1 mm reconstruction interval. Multiplanar reconstruction imaging was performed. COMPARISON: None FINDINGS: The vertebrae and joints: No wedge fracture or compression deformity of the thoracic and lumbar vertebral bodies is noted. There are large anterior marginal osteophytes bridging the vertebrae from T3 through L2. There is some sclerosis along the anterior aspect of these vertebrae as well. No other lytic bone lesion is identified. The facet joints demonstrate minor hypertrophic change at L4-L5 and L5-S1. Intervertebral disc spaces and spinal canal: Generalized disc space narrowing is noted throughout the thoracic levels. Lumbar disc levels demonstrate minor narrowing at L4-L5. There is no widening of the disc spaces. There is minor bony foraminal spinal stenosis at L4-L5 without other bony spinal stenosis. Soft tissues: Visualized portions of the lungs demonstrate dependent atelectasis. There is no consolidation. Cardiac chambers are relatively large. There is coronary artery calcification. No mediastinal or hilar mass is noted on this noncontrast study. Adrenals, pancreas and kidneys demonstrate no abnormality. There is dense atherosclerotic calcified abdominal aorta. No enlarged retroperitoneal lymph nodes are noted. IMPRESSION: 1. No thoracic or lumbar fracture identified 2. Flowing ossification about the anterior aspect of the vertebrae from T3-L2 corresponding to diffuse idiopathic skeletal hyperostosis. 3. Minor bony spinal stenosis at L4-L5 Computed Tomography Report Report Dictated on --- Final --- Dictated: 05/17/2021 6:36 am Dictating Physician: MD NIELSON JEFFREY Signed Date and Time: 05/17/2021 6:42 am Signed by: MD NIELSON JEFFREY Transcribed Date and Time: 05/17/2021 6:36 XR PELVIS (1-2 VW) Result Date: 05/17/2021 [id number] Radiology ACCESSION EXAM DATE/TIME PROCEDURE ORDERING PROVIDER [id number] 05/17/2021 00:31 EST CR Pelvis 1 or 2 Views [id number] -MIGUEL ANGEL PALACIO CPT code 18199 Reason For Exam (CR Pelvis 1 or 2 Views) fall, trauma Report PELVIS: CLINICAL INDICATION: Fall injury with pain. TECHNIQUE: AP COMPARISON: None. FINDINGS: Exam quality: The study is limited due to rotation. There is no evidence for fracture or dislocation. The hips joints are unremarkable. The sacroiliac joints are normal. No bone lesion is identified. Surgical clips overlie the soft tissues about the right-sided pelvis.. IMPRESSION: Limited study. No acute bony abnormality. Report Dictated on --- Final --- Dictated: 05/17/2021 1:46 am Dictating Physician: MD NIELSON JEFFREY Signed Date and Time: 05/17/2021 1:47 am Signed by: MD NIELSON JEFFREY Transcribed Date and Time: 05/17/2021 1:46 Patient Active Problem List Diagnosis Cervical compression fracture, initial encounter ([facility]) Fungal infection of the groin Insomnia PTSD (post-traumatic stress disorder) Fall Seizure (HCC) Impaired gait Acute traumatic pain Memory loss Palliative care encounter Post-traumatic seizures (HCC) Trauma Urinary retention Obesity (BMI 30-39.9) Closed nondisplaced lateral mass fracture of first cervical vertebra (HCC) Fracture Polypharmacy Seizures (HCC) At risk for confusion Drug-induced constipation Breakthrough seizure (HCC) ASSESSMENT: 71 y/o M s/p mechanical fall at home. Found to have a C1 lateral mass fracture. PLAN: Neuro/Spine: - Ortho spine consulted - Remain in c-collar for 3 months, f/u in 10 days - Initial head CT read at [place] 05/16 20:22 as normal - Pain: PO tylenol 650mg q8h shana, Valium, lidocaine patches, prn oxy - Home phenobarb PO - Home diazepam 10 mg PO TID - Start home trazodone 300mg qhs - Melatonin 3mg qhs - Consult palliative care - Delirium protocol - Seizure precautions, consult to Neurology: Witnessed seizure 05/21 - Fioricet added for pain 05/22/21 for headaches prn -Consult Neurology: Lyrica 25mg BID HEENT: - C collar for 3 months - Scalp abrasion Cardiovascular: - PRN labetalol/hydralazine - Home Isordil 30 mg qd PO - Hypertensive: start Norvasc 5mg daily - Home plavix Pulmonary: - IS - Cough and deep breathe -Oxygen protocol, wears Home O2 prn FEN/GI: - Regular diet - Bowel regimen - PRN zofran : - CrCl: 73 - Remove castelan 05/19 - Start flomax - Urinary retention; Straight cath X 1 05/20 - Monitor urine output, bladder scan prn - 05/21 Urinary retention resolved Heme: - DC daily labs ID: - Bacitracin ointment to scalp laceration Endo: - No acute issues Lines/Devices: - PIV Prophylaxis: DVT: Lovenox 30 BID Has DVT PPX been started? Yes If no, why? na GI: NA Pressure Ulcer: None Musculoskeletal: - PT/OT rec FBT WB Status: RUE:wbat LUE: wbat RLE: wbat LLE: wbat Is the patient in restraints?: no Disposition: Continue H5 care, Cervical collar at all times until cleared by Ortho. PT/OT recs for facility based rehab. Neurology f/u outpatient, no acute intervention plan dc to [facility] today, Medically stable for discharge today. Associated attestation - Natalia Molina MD - 05/23/2021 2:53 PM EDT ~~~~~~~~~~~~~~~~~~~~~~~~~~~~~~~~~ ~~~~~~~~~~~~~~~~~~~~~~~~~~~~ ATTENDING ADDENDUM Active Diagnoses/Problems this Admission: Hospital Problems Last Modified POA Fall 05/21/2021 Yes Acute traumatic pain 05/21/2021 Yes Trauma 05/16/2021 Yes Urinary retention 05/17/2021 Yes Obesity (BMI 30-39.9) 05/20/2021 Yes Closed nondisplaced lateral mass fracture of first cervical vertebra (HCC) 05/21/2021 Yes Fracture 05/21/2021 Yes Polypharmacy 05/21/2021 Yes Seizures (HCC) 05/21/2021 Yes At risk for confusion 05/21/2021 Yes Drug-induced constipation 05/21/2021 Yes Breakthrough seizure (HCC) 05/22/2021 Yes I personally supervised the STREET LIGHT REPAIRER HELPER/PADante in the evaluation and development of a treatment plan for this patient on the same day of service as above. I personally discussed the review of systems and interviewed the patient along with performing a physical examination. I reviewed the recent events, imaging, labs, vital signs. In addition, I discussed the patient's condition and treatment options with him/her when possible. I have also reviewed and agree with the past medical, family, and social history unless otherwise noted. All of the patient's questions were answered and family updated when appropriate and possible. A complete review of systems was obtained and is negative except as stated in HPI. Per Inge Rain APRN note Complains of headache - Fioricet PRN Patient had a witnesses seizure today - consult neurology --> Lyrica 25mg BID --> Follow-up outpatient for 4-6 weeks - history of seizures on home vimpat and phenobarb - seizure precautions C1 fx s/p mech fall - ortho spine --> c collar x 3 months - multimodal pain control Urinary retention - improved - flomax Restart home meds - DC trazadone - appreciate geriatrics recs - uses snuff at home --> nicotine patch On home O2 DVT ppx OOB Dispo pending - rehab I personally spent greater than 30 minutes involved with discharge planning, education, and coordination in arranging this patient's discharge today. Natalia Molina MD Division of Trauma Department of Surgery [facility] Pager: [phone] ~~~~~~~~~~~~~~~~~~~~~~~~~~~~~~~~~ ~~~~~~~~~~~~~~~~~~~~~~~~~~~~ This note may have been dictated using [facility] Edition 2.6 and/or Quench Voice Recognition Feature. The document was proofread; however, unrecognized voice recognition turkey picker errors may be present. Nutrition Assessment Type and Reason for Visit: Reassess Nutrition Assessment: Spoke w/pt. via phone from [facility] [address] office. Per pt.: pretty good appetite, eating > 75% of meals, declines supplements, denies GI complaints. Per chart: d/c pending, Labs: 05/19 Cl 97, low, C02 35, elevated Malnutrition Assessment: Malnutrition Status: No malnutrition Estimated Daily Nutrient Needs: Energy (kcal): 5985-9262 kcals/day; Weight Used for Energy Requirements: [place] (75.4kgs) Protein (g): 90-106g protein/day; Weight Used for Protein Requirements: [place] (75.4kgs) Fluid (ml/day): per MD-; Weight Used for Fluid Requirements: Other (Comment) (per MD) Nutrition Related Findings: +BS, abd soft, excoriation groin Current Nutrition Therapies: ADULT DIET; Regular Anthropometric Measures: Height: 5' 10 (177.8 cm) Current Body Wt: 214 lb (97.1 kg) BMI: 30.7 Nutrition Diagnosis: Increased nutrient needs related to acute injury/trauma as evidenced by (increased nutrients for bone healing) Nutrition Interventions: Food and/or Nutrient Delivery: Continue Current Diet Nutrition Education/Counseling: Education not indicated Coordination of Nutrition Care: Continue to monitor while inpatient (will assign level 1 referring to dietitian teaching to monitor) Goals: eating meals Nutrition Monitoring and Evaluation: Behavioral-Environmental Outcomes: None Identified Food/Nutrient Intake Outcomes: Food and Nutrient Intake Physical Signs/Symptoms Outcomes: Biochemical Data,Nutrition Focused Physical Findings,Skin,Weight Discharge Planning: Continue current diet,Assist with food insecurity Contact: [id number] Physical Therapy Facility/Department: [facility] Daily Treatment Note NAME: Bear Shine : 1950 Date of Service: 05/22/2021 Discharge Recommendations: (facility based therapy) Assessment Body structures, Functions, Activity limitations: Decreased functional mobility ;Decreased ADL status;Decreased endurance;Decreased strength;Decreased balance;Increased pain Assessment: Pt agreeable to bed level ther ex only due to just returning back to bed and having 9/10 pain. Pt overall tolerated [place] LE exercises well with no increase in pain just fatigue. Rec facility base therapy upon discharge. REQUIRES PT FOLLOW UP: Yes Activity Tolerance Activity Tolerance: Patient limited by fatigue Patient Diagnosis(es): There were no encounter diagnoses. has a past medical history of Anxiety, COPD (chronic obstructive pulmonary disease) (HCC), HTN (hypertension), Hyperlipidemia, PTSD (post-traumatic stress disorder), and Seizure disorder (HCC). has a past surgical history that includes Cholecystectomy; Appendectomy; TURP; and Cardiac catheterization. Restrictions Restrictions/Precautions Restrictions/Precautions: Fall Risk,Weight Bearing Required Braces or Orthoses?: Yes Upper Extremity Weight Bearing Restrictions Left Upper Extremity Weight Bearing: Non Weight Bearing Required Braces or Orthoses Cervical: c-collar Left Upper Extremity Brace/Splint: Sling Left Upper Extremity Brace/Splint: comfort Subjective General Chart Reviewed: Yes Family / Caregiver Present: No Subjective Subjective: Pt in bed, c-collar donned and agreeable to bed level ther ex. Pt states he just returned to bed from being up in chair and pain is 9/10. Pain Screening Patient Currently in Pain: Yes Pain Assessment Pain Assessment: 0-10 Pain Level: 9 Pain Type: Acute pain;Surgical pain Pain Location: Neck Vital Signs Patient Currently in Pain: Yes Objective Exercises Straight Leg Raise: x 10 reps each Quad Sets: x 10 reps each Heelslides: x 10 reps each Gluteal Sets: x 10 reps Hip Abduction: supine x 10 reps each AM-PAC Score AM-PAC Inpatient Mobility Raw Score : 8 (05/22/21 1409) AM-PAC Inpatient T-Scale Score : 28.52 (05/22/21 1409) Mobility Inpatient CMS 0-100% Score: 86.62 (05/22/21 1409) Mobility Inpatient [facility] G-Code Modifier : CM (05/22/21 1409) Goals Short term goals Time Frame for Short term goals: 2 weeks Short term goal 1: Pt to perform bed mobility with modified independence NOT ADDRESSED Short term goal 2: Pt to perform sit to stand transfers with modified independence NOT ADDRESSED Short term goal 3: Pt to ambulate with least restrictive device x 50' with modified independence NOT ADDRESSED Patient Goals Patient goals : to become more mobile Plan Plan Times per week: 4-5 Plan weeks: 2 Current Treatment Recommendations: Strengthening,Transfer Training,Endurance Training,Balance Training,Gait Training,Functional Mobility Training,Stair training,Safety Education & Training Safety Devices Type of devices: Patient at risk for falls,Call light within reach,Left in bed Restraints Initially in place: No Therapy Time Individual Concurrent Group Co-treatment Time In 1346 Time Out 1357 Minutes 11 Timed Code Treatment Minutes: 11 Minutes (tp) Marnie Kong PTA Images from the original note were not included. [facility] Geriatric Medicine Inpatient Consult Service Admission Date: 05/16/2021 Assessment Active Problems: Fall Acute traumatic pain Trauma Urinary retention Obesity (BMI 30-39.9) Closed nondisplaced lateral mass fracture of first cervical vertebra (HCC) Fracture Polypharmacy Seizures (HCC) At risk for confusion Drug-induced constipation Resolved Problems: * No resolved hospital problems. * Plan Fall - Multiple risk factors including decreased hearing, decreased vision, chronic pain and possible medication side effect - Continue PT/OT as able while inpatient - Vitamin D within normal limits - continue home supplementation - Check orthostatic vital signs as able - Medications with associated fall risk include: Oxycodone, diazepam, phenobarbital - PT recommending facility based therapy- per review of SW note from today- plan for dent- possible d/c today Acute traumatic pain - continue scheduled Tylenol 1000 mg q8h, oxycodone 10 mg q6h PRN (multiple PRN doses used today) - Patient reports that his pain is better today - Takes Oxycodone 10 mg 4 times daily at home according to [facility] report - Monitor for constipation- at increase risk secondary to opioid use and decreased mobility- per review of chart- small hard BM documented 05/20-continue scheduled bowel regimen Polypharmacy - Medications reviewed and discussed with geriatric pharmacist, recommendations as below: - per pharmacist report, no recent fill of Trazodone located, last fill at preferred pharmacy on 07/02/20- use with caution in patients at risk for seizures, so therefore would recommend discontinuation of Trazodone at this time. Monitor for any signs of withdrawal that would indicate medication needs to be restarted at a lower dose. - Of note, neurology has been consulted and patient started on Lyrica 25mg BID for breakthrough seizure - Patient reportedly utilized snuff at home, if agitation noted- consider the addition of nicotine replacement therapy At risk for confusion - Risk factors for this patient include: Hearing loss, pain, medication withdrawal/ medication side effect, urinary retention - Delirium protocol - continue nightly scheduled melatonin - Avoid sedating/anticholinergic medications, encourage sleep hygiene, encourage family visits, optimize sensory input and access to assistive devices where indicated, encourage time up in chair as able and D/c Castelan, restraints, IV lines, as able Follow-up: will sign off, please call if questions Subjective Chief Complaint: fall Geriatrics consulted for Trauma due to fall HPI- The patient is known to me. 71 y.o. year-old male admitted to acute care from home for fall. Fell after tripping over his dog. Diagnosed with nondisplaced fracture of the left posterior neural arch of C1 and comminuted fracture of the left lateral mass. Interval History: Remains on general medical/surgical floor No reported overnight events Patient reports that his pain is better today, asking for lunch. Headache is better. Denies other concerns at this time, knows he is at the hospital at this time. Seen by PT 05/20 Maximum-2 Person assist. Ambulated 4 feet, with Slow Emmie; Decreased step length; Decreased step height. Recommending facility based therapy. Review of Systems Respiratory: Negative for cough and shortness of breath. Cardiovascular: Negative for chest pain and leg swelling. Gastrointestinal: Negative for abdominal pain, constipation and nausea. Musculoskeletal: Positive for arthralgias, gait problem and neck stiffness. Negative for back pain. Neurological: Negative for dizziness and light-headedness. Psychiatric/Behavioral: Negative for confusion and sleep disturbance. Objective BP 108/79 Pulse 69 Temp 98.4 F (36.9 C) (Temporal) Resp 22 Ht 5' 10 (1.778 m) Wt 214 lb 1.1 oz (97.1 kg) SpO2 94% BMI 30.72 kg/m Intake/Output Summary (Last 24 hours) at 05/22/2021 1350 Last data filed at 05/22/2021 0709 Gross per 24 hour Intake Output 1000 ml Net -1000 ml No data found. Current Facility-Administered Medications: bacitracin-polymyxin b (POLYSPORIN) ophthalmic ointment, , Topical, BID dmxoaqatum-cgjnhmtdexwef-kjgsavsj (FIORICET, ESGIC) per tablet 1 tablet, 1 tablet, Oral, Q6H PRN acetaminophen (TYLENOL) tablet 650 mg, 650 mg, Oral, 3 times per day naloxone (NARCAN) injection 0.4 mg, 0.4 mg, IntraVENous, PRN pregabalin (LYRICA) capsule 25 mg, 25 mg, Oral, BID isosorbide dinitrate (ISORDIL) tablet 30 mg, 30 mg, Oral, Daily amLODIPine (NORVASC) tablet 5 mg, 5 mg, Oral, Daily polyethylene glycol (GLYCOLAX) packet 17 g, 17 g, Oral, Daily senna (SENOKOT) tablet 8.6 mg, 1 tablet, Oral, Nightly tamsulosin (FLOMAX) capsule 0.4 mg, 0.4 mg, Oral, Daily oxyCODONE (ROXICODONE) immediate release tablet 10 mg, 10 mg, Oral, Q4H PRN OR [DISCONTINUED] oxyCODONE (ROXICODONE) immediate release tablet 10 mg, 10 mg, Oral, Q4H PRN traZODone (DESYREL) tablet 100 mg, 100 mg, Oral, Nightly lidocaine 4 % external patch 1 patch, 1 patch, TransDERmal, Daily enoxaparin (LOVENOX) injection 30 mg, 30 mg, SubCUTAneous, BID clopidogrel (PLAVIX) tablet 75 mg, 75 mg, Oral, Daily labetalol (NORMODYNE;TRANDATE) injection 10 mg, 10 mg, IntraVENous, Q4H PRN hydrALAZINE (APRESOLINE) injection 10 mg, 10 mg, IntraVENous, Q4H PRN docusate sodium (COLACE) capsule 100 mg, 100 mg, Oral, BID melatonin tablet 3 mg, 3 mg, Oral, Nightly PHENobarbital (LUMINAL) tablet 32.4 mg, 32.4 mg, Oral, TID PHENobarbital (LUMINAL) tablet 64.8 mg, 64.8 mg, Oral, BID diazePAM (VALIUM) tablet 10 mg, 10 mg, Oral, TID sodium chloride flush 0.9 % injection 5-40 mL, 5-40 mL, IntraVENous, 2 times per day sodium chloride flush 0.9 % injection 5-40 mL, 5-40 mL, IntraVENous, PRN 0.9 % sodium chloride infusion, 25 mL, IntraVENous, PRN ondansetron (ZOFRAN-ODT) disintegrating tablet 4 mg, 4 mg, Oral, Q8H PRN OR ondansetron (ZOFRAN) injection 4 mg, 4 mg, IntraVENous, Q6H PRN miconazole (MICOTIN) 2 % powder, , Topical, BID Physical Exam Constitutional: General: He is not in acute distress. Appearance: He is well-developed. Comments: Sitting up in bedside chair, does not appear to be in acute distress Neck: Comments: C collar in place Cardiovascular: Rate and Rhythm: Normal rate. Heart sounds: Normal heart sounds. Pulmonary: Effort: Pulmonary effort is normal. No respiratory distress. Abdominal: General: Bowel sounds are normal. Palpations: Abdomen is soft. Musculoskeletal: Right lower leg: No edema. Left lower leg: No edema. Neurological: Mental Status: He is alert. Sensory: No sensory deficit. Comments: Alert and oriented to person, place- knows he is in the hospital, but states he is in [place] Follows commands Psychiatric: Comments: Cooperative, no agitation Labs and Imaging: No results found for this or any previous visit (from the past 24 hour(s)). Lab Results Component Value Date TSH 1.400 05/17/2021 Lab Results Component Value Date [id number] 05/17/2021 Lab Results Component Value Date [id number] 45 05/17/2021 Reviewed: active problem list, medication list, allergies, notes from last encounter, lab results Daily Trauma Progress Note NANDO 05/22/2021 6:42 AM Admit Date: 05/16/2021 Post Trauma Day 6 Fall SH HISTORY OF TRAUMATIC EVENT: 71 y.o. male status post fall. The incident happened around 05/16 on 03:00 at home. When the event happened the patient was with his dog Michaelle and lost balance and fell and hit his dog's cage. Denies LOC. INJURIES: - C1 lateral mass and posterior arch fx PROCEDURES: None INCIDENTAL FINDINGS: Carotid stenosis CHIEF COMPLAINT: Neck pain PREVIOUS 24 HOUR EVENTS: -Break through seizure, PTSD Consults: IP CONSULT TO ORTHOPEDIC SURGERY IP CONSULT TO GERIATRICS IP CONSULT TO PALLIATIVE CARE IP CONSULT TO NEUROLOGY MEDICATIONS: Current Facility-Administered Medications Medication Dose Route Frequency Provider Last Rate Last Admin naloxone (NARCAN) injection 0.4 mg 0.4 mg IntraVENous PRN Inge Rain APRN - BRUCE pregabalin (LYRICA) capsule 25 mg 25 mg Oral BID Duy Caldera MD 25 mg at 05/21/212128 isosorbide dinitrate (ISORDIL) tablet 30 mg 30 mg Oral Daily June Mcmahon APRN - TREE CUTTER 30 mg at 05/21/21842 amLODIPine (NORVASC) tablet 5 mg 5 mg Oral Daily June Mcmahon APRN - TREE CUTTER 5 mg at 05/21/21842 polyethylene glycol (GLYCOLAX) packet 17 g 17 g Oral Daily June Mcmahon APRN - TREE CUTTER 17 g at 05/21/21842 senna (SENOKOT) tablet 8.6 mg 1 tablet Oral Nightly June Mcmahon APRN - TREE CUTTER 8.6 mg at 05/21/212128 tamsulosin (FLOMAX) capsule 0.4 mg 0.4 mg Oral Daily June Mcmahon APRN - TREE CUTTER 0.4 mg at 05/21/2143 oxyCODONE (ROXICODONE) immediate release tablet 10 mg 10 mg Oral Q4H PRN Bienvenido Mcleod MD 10 mg at 05/22/21529 traZODone (DESYREL) tablet 100 mg 100 mg Oral Nightly Bienvenido Mcleod MD 100 mg at 05/21/212128 lidocaine 4 % external patch 1 patch 1 patch TransDERmal Daily Bienvenido Mcleod MD 1 patch at 03/15/22 0844 enoxaparin (LOVENOX) injection 30 mg 30 mg SubCUTAneous BID Bienvenido Mcleod MD 30 mg at 05/21/212128 clopidogrel (PLAVIX) tablet 75 mg 75 mg Oral Daily Bienvenido Mcleod MD 75 mg at 05/21/21842 labetalol (NORMODYNE;TRANDATE) injection 10 mg 10 mg IntraVENous Q4H PRN Bienvenido Mcleod MD 10 mg at 05/20/212135 hydrALAZINE (APRESOLINE) injection 10 mg 10 mg IntraVENous Q4H PRN Bienvenido Mcleod MD docusate sodium (COLACE) capsule 100 mg 100 mg Oral BID Bienvenido Mcleod MD 100 mg at 05/21/212127 melatonin tablet 3 mg 3 mg Oral Nightly Bienvenido Mcleod MD 3 mg at 05/21/212128 PHENobarbital (LUMINAL) tablet 32.4 mg 32.4 mg Oral TID Bienvenido Mcleod MD 32.4 mg at 05/21/212131 PHENobarbital (LUMINAL) tablet 64.8 mg 64.8 mg Oral BID Bienvenido Mcleod MD 64.8 mg at 05/21/212128 acetaminophen (TYLENOL) tablet 1,000 mg 1,000 mg Oral 3 times per day Bienvenido Mcleod MD 1,000 mg at 05/22/21550 diazePAM (VALIUM) tablet 10 mg 10 mg Oral TID Bienvenido Mcleod MD 10 mg at 05/21/212127 sodium chloride flush 0.9 % injection 5-40 mL 5-40 mL IntraVENous 2 times per day Bienvenido Mcleod MD 10 mL at 05/21/212131 sodium chloride flush 0.9 % injection 5-40 mL 5-40 mL IntraVENous PRN Bienvenido Mcleod MD 0.9 % sodium chloride infusion 25 mL IntraVENous PRN Bienvenido Mcleod MD ondansetron (ZOFRAN-ODT) disintegrating tablet 4 mg 4 mg Oral Q8H PRN Bienvenido Mcleod MD Or ondansetron (ZOFRAN) injection 4 mg 4 mg IntraVENous Q6H PRN Bienvenido Mcleod MD miconazole (MICOTIN) 2 % powder Topical BID Bienvenido Mcleod MD Given at 05/21/212133 ARE THERE PERTINENT UPDATES TO PAST,FAMILY, OR SOCIAL HISTORY?: No Subjective: Complaining of headache today. States he was able to get some rest over night. His neck pain is well controlled but he believes the pain is radiating to his head. No seizure activity overnight. Review of Systems Constitutional: Positive for activity change. HENT: Negative. Respiratory: Negative for cough and shortness of breath. Cardiovascular: Negative. Negative for chest pain. Gastrointestinal: Negative for constipation. Genitourinary: Negative. Negative for difficulty urinating. Musculoskeletal: Positive for arthralgias, neck pain and neck stiffness. Chronic low back pain Skin: Positive for wound. Neurological: Positive for headaches. Psychiatric/Behavioral: Negative. Negative for confusion. All other systems reviewed and are negative. PHQ In the last 2 weeks have you had: 1. Little interest or pleasure in doing things No 2. Been feeling down, depressed, or hopeless No If greater then 0, place CLP consult Date PHQ completed: Objective: Patient Vitals for the past 24 hrs: BP Temp Temp src Pulse Resp SpO2 05/22/21 0515 (!) 157/87 98.2 F (36.8 C) Temporal 58 18 96 % 05/21/21 2113 (!) 170/84 98.8 F (37.1 C) Temporal 62 16 96 % 05/21/21 1725 (!) 163/84 97.6 F (36.4 C) Temporal 59 97 % 05/21/21 1322 119/65 99.1 F (37.3 C) Temporal 57 94 % 05/21/21 1023 133/75 Temporal 64 14 98 % 05/21/21 0943 (!) 156/86 Temporal 63 05/21/21 0912 (!) 166/112 98.2 F (36.8 C) Temporal 63 97 % Last BM: 05/20 Diet: Regular CVP: No Chest Tubes: R: No L: No PHYSICAL: Physical Exam Vitals reviewed. Constitutional: Appearance: Normal appearance. HENT: Head: Normocephalic. Comments: Abrasion to forehead C collar in place Right Ear: External ear normal. Left Ear: External ear normal. Nose: Nose normal. Mouth/Throat: Mouth: Mucous membranes are moist. Pharynx: Oropharynx is clear. Eyes: Conjunctiva/sclera: Conjunctivae normal. Neck: Comments: El[place] collar in place Cardiovascular: Rate and Rhythm: Normal rate. Pulses: Normal pulses. Pulmonary: Effort: Pulmonary effort is normal. Abdominal: General: Abdomen is flat. Palpations: Abdomen is soft. Tenderness: There is no abdominal tenderness. Musculoskeletal: General: Normal range of motion. Right lower leg: No edema. Left lower leg: No edema. Skin: General: Skin is warm and dry. Capillary Refill: Capillary refill takes 2 to 3 seconds. Comments: Scalp abrasion noted Neurological: General: No focal deficit present. Mental Status: He is alert and oriented to person, place, and time. Mental status is at baseline. Psychiatric: Mood and Affect: Mood normal. Behavior: Behavior normal. Sutures or tammy? No O2: 3 L NC, states he has home O2 that he uses prn / / / Data Review Data CBC with Differential: Lab Results Component Value Date WBC 7.7 05/19/2021 RBC 4.99 05/19/2021 HGB 16.1 05/19/2021 HCT 49.9 05/19/2021 PLT 135 05/19/2021 CMP: Lab Results Component Value Date NA 135 05/19/2021 K 4.2 05/19/2021 CL 97 05/19/2021 CO2 35 05/19/2021 BUN 11 05/19/2021 CREATININE 1.06 05/19/2021 GLUCOSE 80 05/19/2021 PROT 7.1 05/21/2021 LABALBU 3.9 05/21/2021 CALCIUM 8.6 05/19/2021 BILITOT 0.7 05/21/2021 ALKPHOS 79 05/21/2021 AST 44 05/21/2021 ALT 21 05/21/2021 BMP: Hepatic Function Panel:Ionized Calcium: Lab Results Component Value Date IONCA 4.10 08/18/2018 Magnesium: Lab Results Component Value Date MG 2.1 08/19/2018 Phosphorus: Lab Results Component Value Date PHOS 2.6 08/19/2018 PT/INR: No results found for: PROTIME, INR PTT: No results found for: APTT[APTT Last 3 Troponin: No results found for: TROPONINI Urine Culture: No components found for: CURINE Blood Culture: No components found for: CBLOOD, CFUNGUSBL Blood Culture from Central Line: No components found for: CBLOODLN Stool Culture: No components found for: CSTOOL Sputum Culture: No components found for: CSPUTUM Sputum Culture for AFB: No components found for: CAFBSM Wound Culture: Na Radiology: XR CERVICAL SPINE (2-3 VIEWS) Result Date: 05/18/2021 Patient Name: BEAR SHINE Diagnostic Radiology ACCESSION EXAM DATE/TIME PROCEDURE ORDERING PROVIDER [id number] 05/17/2021 09:44 EST CR Spine Cervical 2 or 3 MD NEGRON BLAKE Views CPT code 57553 Reason For Exam (CR Spine Cervical 2 or 3 Views) AP/Lateral in collar C1 Fx Report CERVICAL SPINE: CLINICAL INDICATION: C1 fracture TECHNIQUE: AP, lateral nd open mouth plus flexion and extension views COMPARISON: None FINDINGS: Exam quality: The study is limited due to the patient's body habitus, overlying radiopaque structures and inability to optimally position the patient. . The C1 fracture is not readily identified on these conventional radiographs. There is no malalignment at the articulation between C1 and the occiput and C1 and C2. There is limited visualization below C4 on the lateral views. Marked anterior spurring is noted at C2-C4. Disc space narrowing is noted at C2-C3 and C3-C4. The retropharyngeal and retrotracheal soft tissues are unremarkable. IMPRESSION: C1 fractures are not appreciable on these conventional radiographs. Anterior spurring about the upper cervical vertebrae and disc space narrowing. Report Dictated on --- Final --- Dictated: 05/18/2021 5:25 am Dictating Physician: MD NIELSON JEFFREY Signed Date and Time: 05/18/2021 5:31 am Signed by: MD NIELSON JEFFREY Transcribed Date and Time: 05/18/2021 5:25 XR SHOULDER LEFT 1 VW Result Date: 05/17/2021 Patient Name: BEAR SHINE Diagnostic Radiology ACCESSION EXAM DATE/TIME PROCEDURE ORDERING PROVIDER [id number] 05/17/2021 02:25 EST CR Shoulder 1 View Left MD NEGRON BLAKE CPT code 63944 Reason For Exam (CR Shoulder 1 View Left) Axillary L Shoulder Report LEFT SHOULDER: CLINICAL INDICATION: Fall injury with pain. TECHNIQUE: Axillary view only COMPARISON: None. FINDINGS: There is some cortical irregularity about the greater tuberosity. No other fracture or dislocation is identified. IMPRESSION: Limited axillary view demonstrate some cortical irregularity about the greater tuberosity but no definite fracture or dislocation. Report Dictated on --- Final --- Dictated: 05/17/2021 3:51 am Dictating Physician: MD NIELSON JEFFREY Signed Date and Time: 05/17/2021 3:53 am Signed by: MD NIELSON JEFFREY Transcribed Date and Time: 05/17/2021 3:51 CT HEAD WO CONTRAST Result Date: 05/17/2021 Patient Name: BEAR SHINE Computed Tomography ACCESSION EXAM DATE/TIME PROCEDURE ORDERING PROVIDER [id number] 05/17/2021 05:[address] Head or Brain w/o [id number] -PIA, MIGUEL ANGEL Contrast CPT code 42093 Reason For Exam (CT Head or Brain w/o Contrast) repeat CT head, fall on blood thinners, forehead abrasion, known C1 fx. No earlier than 04:[address] HEAD: CLINICAL INDICATION: Trauma with known C1 fracture with previous images from [facility] TECHNIQUE: Transaxial CT sequence performed through the head with 3 mm reconstruction. Sagittal and Coronal reconstruction images included. Dose reduction employed with automated exposure control. COMPARISON: None FINDINGS: Ventricles and Extra-axial spaces: Normal in size and morphology for the patient's age. No abnormal extracerebral collection identified. Cerebral and cerebellar parenchyma: No regions of abnormal increased or decreased attenuation, mass lesion or evidence of acute infarct. Hemorrhage: None Brainstem: Normal Visualized Paranasal sinuses: Normal. Mastoid air cells: Normal Visualized Orbits: Normal Calvarium and skull base: There is no CT evidence of fracture of the calvarium. A comminuted fracture of the left lateral mass of C1 extends into the posterior lamina. There is a triangular-shaped fragment measuring up to 1.3 cm projecting into the left side of the spinal canal IMPRESSION: 1. No acute intracranial abnormality 2. C1 fracture on the left. Computed Tomography Report Report Dictated on --- Final --- Dictated: 05/17/2021 6:17 am Dictating Physician: MD NIELSON JEFFREY Signed Date and Time: 05/17/2021 6:21 am Signed by: MD NIELSON JEFFREY Transcribed Date and Time: 05/17/2021 6:18 CTA NECK W WO CONTRAST Result Date: 05/17/2021 [id number] ACCESSION EXAM DATE/TIME PROCEDURE ORDERING PROVIDER [id number] 05/17/2021 05:31 EST CTA Neck w/ + w/o MD NEGRON BLAKE Contrast CPT code 93025 [id number] Reason For Exam (CTA Neck w/ + w/o Contrast) C1 Fracture Report CT ANGIOGRAPHY NECK: CLINICAL INDICATION: Trauma with known C1 fracture with previous images from [facility] TECHNIQUE: Multidetector spiral transaxial sequence was performed from the upper mediastinum through the skull base during dynamic intravenous infusion of 75 mL of nonionic contrast media, injected at a high flow rate following a heel cementer machine study. Images were reconstructed with soft tissue and bone algorithm at 0.5 mm transaxial destruction. Multiplanar and 3D MIP reconstruction was performed concurrently on an independent viewing workstation with 1 mm reconstruction. Measurement of carotid stenosis is a ratio based on conventional angiographic data from the NASCET trials with the smallest caliber of the internal carotid as the numerator and normal post-stenotic internal carotid caliber as denominator. Dose reduction was employed with automated exposure control. COMPARISON: Outside CT examination FINDINGS: Aortic arch and great vessel origins: Normal. Right common and external carotid: Normal. Right internal carotid: Minimal stenosis near the origin in the range of less than 30 percent. Left common and external carotid: Normal. Left internal carotid: Minimal stenosis near the origin in the range of less than 30 percent. Vertebral arteries: Patent flow is noted within both vertebral arteries. The left distal vertebral artery courses directly adjacent to the comminuted fracture of the left lateral mass of C1. The vessel enters the spinal canal at C1 and remains patent into the basilar artery. No focal stenotic segment or dissection is identified. Neck: No cystic or solid mass within the deep or superficial spaces of the neck. Unremarkable salivary glands and thyroid. No enlarged lymph nodes. No abnormality within the airways. Unremarkable lung apices. Computed Tomography Report Comminuted fracture the left lateral mass of C1 is noted as identified on CT head and prior CT cervical spine. There is also anterior spurring with flowing ossification about the vertebrae from C3 through C7. IMPRESSION: 1. Patent left vertebral artery without evidence of traumatic stenosis or dissection near the site of the C1 fracture 2. Patent right vertebral artery along with patent carotid arteries without hemodynamically significant internal carotid artery stenosis 3. No intracranial arterial abnormality. Report Dictated on --- Final --- Dictated: 05/17/2021 6:22 am Dictating Physician: MD NIELSON JEFFREY Signed Date and Time: 05/17/2021 6:35 am Signed by: MD NIELSON JEFFREY Transcribed Date and Time: 05/17/2021 6:22 CT THORACIC SPINE WO CONTRAST Result Date: 05/17/2021 Patient Name: BEAR SHINE Computed Tomography ACCESSION EXAM DATE/TIME PROCEDURE ORDERING PROVIDER [id number] 05/17/2021 05:[address] Spine Thoracic w/o MD JAMIL, NERISSA Contrast CPT code 54177 Reason For Exam (CT Spine Thoracic w/o Contrast) Back pain - Trauma with DISH Report CT THORACIC AND LUMBAR SPINE : CLINICAL INDICATION: Trauma with back pain TECHNIQUE: Transaxial sequence through the thoracic and separately through the lumbar spine with 1 mm reconstruction interval. Multiplanar reconstruction imaging was performed. COMPARISON: None FINDINGS: The vertebrae and joints: No wedge fracture or compression deformity of the thoracic and lumbar vertebral bodies is noted. There are large anterior marginal osteophytes bridging the vertebrae from T3 through L2. There is some sclerosis along the anterior aspect of these vertebrae as well. No other lytic bone lesion is identified. The facet joints demonstrate minor hypertrophic change at L4-L5 and L5-S1. Intervertebral disc spaces and spinal canal: Generalized disc space narrowing is noted throughout the thoracic levels. Lumbar disc levels demonstrate minor narrowing at L4-L5. There is no widening of the disc spaces. There is minor bony foraminal spinal stenosis at L4-L5 without other bony spinal stenosis. Soft tissues: Visualized portions of the lungs demonstrate dependent atelectasis. There is no consolidation. Cardiac chambers are relatively large. There is coronary artery calcification. No mediastinal or hilar mass is noted on this noncontrast study. Adrenals, pancreas and kidneys demonstrate no abnormality. There is dense atherosclerotic calcified abdominal aorta. No enlarged retroperitoneal lymph nodes are noted. IMPRESSION: 1. No thoracic or lumbar fracture identified 2. Flowing ossification about the anterior aspect of the vertebrae from T3-L2 corresponding to diffuse idiopathic skeletal hyperostosis. 3. Minor bony spinal stenosis at L4-L5 Computed Tomography Report Report Dictated on --- Final --- Dictated: 05/17/2021 6:36 am Dictating Physician: MD NIELSON JEFFREY Signed Date and Time: 05/17/2021 6:42 am Signed by: MD NIELSON JEFFREY Transcribed Date and Time: 05/17/2021 6:36 CT LUMBAR SPINE WO CONTRAST Result Date: 05/17/2021 Patient Name: BEAR SHINE Computed Tomography ACCESSION EXAM DATE/TIME PROCEDURE ORDERING PROVIDER [id number] 05/17/2021 05:[address] Spine Lumbar w/o MD NEGRON BLAKE Contrast CPT code 43608 Reason For Exam (CT Spine Lumbar w/o Contrast) Back Pain w/ DISH Report CT THORACIC AND LUMBAR SPINE : CLINICAL INDICATION: Trauma with back pain TECHNIQUE: Transaxial sequence through the thoracic and separately through the lumbar spine with 1 mm reconstruction interval. Multiplanar reconstruction imaging was performed. COMPARISON: None FINDINGS: The vertebrae and joints: No wedge fracture or compression deformity of the thoracic and lumbar vertebral bodies is noted. There are large anterior marginal osteophytes bridging the vertebrae from T3 through L2. There is some sclerosis along the anterior aspect of these vertebrae as well. No other lytic bone lesion is identified. The facet joints demonstrate minor hypertrophic change at L4-L5 and L5-S1. Intervertebral disc spaces and spinal canal: Generalized disc space narrowing is noted throughout the thoracic levels. Lumbar disc levels demonstrate minor narrowing at L4-L5. There is no widening of the disc spaces. There is minor bony foraminal spinal stenosis at L4-L5 without other bony spinal stenosis. Soft tissues: Visualized portions of the lungs demonstrate dependent atelectasis. There is no consolidation. Cardiac chambers are relatively large. There is coronary artery calcification. No mediastinal or hilar mass is noted on this noncontrast study. Adrenals, pancreas and kidneys demonstrate no abnormality. There is dense atherosclerotic calcified abdominal aorta. No enlarged retroperitoneal lymph nodes are noted. IMPRESSION: 1. No thoracic or lumbar fracture identified 2. Flowing ossification about the anterior aspect of the vertebrae from T3-L2 corresponding to diffuse idiopathic skeletal hyperostosis. 3. Minor bony spinal stenosis at L4-L5 Computed Tomography Report Report Dictated on --- Final --- Dictated: 05/17/2021 6:36 am Dictating Physician: MD NIELSON JEFFREY Signed Date and Time: 05/17/2021 6:42 am Signed by: MD NIELSON JEFFREY Transcribed Date and Time: 05/17/2021 6:36 XR PELVIS (1-2 VW) Result Date: 05/17/2021 Patient Name: BEAR SHINE Diagnostic Radiology ACCESSION EXAM DATE/TIME PROCEDURE ORDERING PROVIDER [id number] 05/17/2021 00:31 EST CR Pelvis 1 or 2 Views [id number] -MIGUEL ANGEL PALACIO CPT code 03307 Reason For Exam (CR Pelvis 1 or 2 Views) fall, trauma Report PELVIS: CLINICAL INDICATION: Fall injury with pain. TECHNIQUE: AP COMPARISON: None. FINDINGS: Exam quality: The study is limited due to rotation. There is no evidence for fracture or dislocation. The hips joints are unremarkable. The sacroiliac joints are normal. No bone lesion is identified. Surgical clips overlie the soft tissues about the right-sided pelvis.. IMPRESSION: Limited study. No acute bony abnormality. Report Dictated on --- Final --- Dictated: 05/17/2021 1:46 am Dictating Physician: MD NIELSON JEFFREY Signed Date and Time: 05/17/2021 1:47 am Signed by: MD NIELSON JEFFREY Transcribed Date and Time: 05/17/2021 1:46 Patient Active Problem List Diagnosis Cervical compression fracture, initial encounter (HCC) Fungal infection of the groin Insomnia PTSD (post-traumatic stress disorder) Fall Seizure (HCC) Impaired gait Acute traumatic pain Memory loss Palliative care encounter Post-traumatic seizures ([facility]) Trauma Urinary retention Obesity (BMI 30-39.9) Closed nondisplaced lateral mass fracture of first cervical vertebra (HCC) Fracture Polypharmacy Seizures (HCC) At risk for confusion Drug-induced constipation ASSESSMENT: 71 y/o M s/p mechanical fall at home. Found to have a C1 lateral mass fracture. PLAN: Neuro/Spine: - Ortho spine consulted - Remain in c-collar for 3 months, f/u in 10 days - Initial head CT read at [facility] 05/16 20:22 as normal - Pain: PO tylenol 650mg q8h shana, Valium, lidocaine patches, prn oxy - Home phenobarb PO - Home diazepam 10 mg PO TID - Start home trazodone 300mg qhs - Melatonin 3mg qhs - Consult palliative care - Delirium protocol - Seizure precautions, consult to Neurology: Witnessed seizure 05/21 - Fioricet added for pain 05/22/21 for headaches prn -Consult Neurology: Lyrica 25mg BID HEENT: - C collar for 3 months - Scalp abrasion Cardiovascular: - PRN labetalol/hydralazine - Home Isordil 30 mg qd PO - Hypertensive: start Norvasc 5mg daily - Home plavix Pulmonary: - IS - Cough and deep breathe -Oxygen protocol, wears Home O2 prn FEN/GI: - Regular diet - Bowel regimen - PRN zofran : - CrCl: 73 - Remove castelan 05/19 - Start flomax - Urinary retention; Straight cath X 1 05/20 - Monitor urine output, bladder scan prn - 05/21 Urinary retention resolved Heme: - DC daily labs ID: - Bacitracin ointment to scalp laceration Endo: - No acute issues Lines/Devices: - PIV Prophylaxis: DVT: Lovenox 30 BID Has DVT PPX been started? Yes If no, why? na GI: NA Pressure Ulcer: None Musculoskeletal: - PT/OT rec FBT WB Status: RUE:wbat LUE: wbat RLE: wbat LLE: wbat Is the patient in restraints?: no Disposition: Continue H5 care, Cervical collar at all times until cleared by Ortho. PT/OT recs for facility based rehab. Awaiting final recs from Neurology. Medically stable for discharge today. Associated attestation - Natalia Molina MD - 05/22/2021 2:01 PM EDT ~~~~~~~~~~~~~~~~~~~~~~~~~~~~~~~~~ ~~~~~~~~~~~~~~~~~~~~~~~~~~~~ ATTENDING ADDENDUM Active Diagnoses/Problems this Admission: Hospital Problems Last Modified POA Fall 05/21/2021 Yes Acute traumatic pain 05/21/2021 Yes Trauma 05/16/2021 Yes Urinary retention 05/17/2021 Yes Obesity (BMI 30-39.9) 05/20/2021 Yes Closed nondisplaced lateral mass fracture of first cervical vertebra (HCC) 05/21/2021 Yes Fracture 05/21/2021 Yes Polypharmacy 05/21/2021 Yes Seizures (HCC) 05/21/2021 Yes At risk for confusion 05/21/2021 Yes Drug-induced constipation 05/21/2021 Yes I personally supervised the [employer] HELPER/SRIRAM in the evaluation and development of a treatment plan for this patient on the same day of service as above. I personally discussed the review of systems and interviewed the patient along with performing a physical examination. I reviewed the recent events, imaging, labs, vital signs. In addition, I discussed the patient's condition and treatment options with him/her when possible. I have also reviewed and agree with the past medical, family, and social history unless otherwise noted. All of the patient's questions were answered and family updated when appropriate and possible. A complete review of systems was obtained and is negative except as stated in HPI. Per Inge Rain APRN note Complains of headache - Fioricet PRN Patient had a witnesses seizure today - consult neurology --> Lyrica 25mg BID, pending complete recs - history of seizures on home vimpat and phenobarb - seizure precautions C1 fx s/p mech fall - ortho spine --> c collar x 3 months - multimodal pain control Urinary retention - improved - flomax Restart home meds - DC trazadone - appreciate geriatrics recs - uses snuff at home --> start nicotine patch On home O2 DVT ppx OOB Dispo pending - rehab Natalia Molina MD Division of Trauma Department of Surgery [facility] Pager: [phone] ~~~~~~~~~~~~~~~~~~~~~~~~~~~~~~~~~ ~~~~~~~~~~~~~~~~~~~~~~~~~~~~ This note may have been dictated using [facility] Edition 2.6 and/or Quench Voice Recognition Feature. The document was proofread; however, unrecognized voice recognition turkey picker errors may be present. Images from the original note were not included. [facility] Geriatric Medicine Inpatient Consult Service Admission Date: 05/16/2021 Assessment Active Problems: Fall Acute traumatic pain Trauma Urinary retention Obesity (BMI 30-39.9) Closed nondisplaced lateral mass fracture of first cervical vertebra (HCC) Fracture Polypharmacy Seizures (HCC) At risk for confusion Drug-induced constipation Resolved Problems: * No resolved hospital problems. * Plan Fall - Multiple risk factors including decreased hearing, decreased vision, chronic pain and possible medication side effect - Continue PT/OT as able while inpatient - Vitamin D within normal limits - continue home supplementation - Check orthostatic vital signs as able - Medications with associated fall risk include: Oxycodone, diazepam, phenobarbital - PT recommending facility based therapy- per review of SW note from today- plan for [facility] Acute traumatic pain - continue scheduled Tylenol 1000 mg q8h, oxycodone 10 mg q6h PRN (multiple PRN doses used today) - Takes Oxycodone 10 mg 4 times daily at home according to [facility] report - Monitor for constipation- at increase risk secondary to opioid use and decreased mobility- per review of chart- small hard BM documented yesterday-continue scheduled bowel regimen Polypharmacy - Follow up with Pharmacy to confirm outpatient medications - Medications reviewed and discussed with geriatric pharmacist, recommendations as below: - per pharmacist report, no recent fill of Trazodone located, last fill at preferred pharmacy on 07/02/20- use with caution in patients at risk for seizures, so therefore would recommend discontinuation of Trazodone at this time. Monitor for any signs of withdrawal that would indicate medication needs to be restarted at a lower dose. - Of note, neurology has been consulted - Patient reportedly utilized snuff at home, if agitation noted- consider the addition of nicotine replacement therapy At risk for confusion - Risk factors for this patient include: Hearing loss, pain, medication withdrawal/ medication side effect, urinary retention - Delirium protocol - continue nightly scheduled melatonin - Avoid sedating/anticholinergic medications, encourage sleep hygiene, encourage family visits, optimize sensory input and access to assistive devices where indicated, encourage time up in chair as able and D/c Castelan, restraints, IV lines, as able Follow-up: 1-2 days as needed Subjective Chief Complaint: fall Geriatrics consulted for Trauma due to fall HPI- The patient is new to me but seen by the Geriatric Inpatient Consult team. 71 y.o. year-old male admitted to acute care from home for fall. Fell after tripping over his dog. Diagnosed with nondisplaced fracture of the left posterior neural arch of C1 and comminuted fracture of the left lateral mass. Interval History: Remains on general medical/surgical floor No reported overnight events Patient reports that he is feeling sore today, pain is 8/10 today, just got some PRN pain medication prior to my visit. Patient is aware that plan is for him to go somewhere for rehab, he knows that he is at the hospital at this time. Seen by PT this morning. Maximum-2 Person assist. Ambulated 4 feet, with Slow Emmie; Decreased step length; Decreased step height. Recommending facility based therapy. Review of Systems Eyes: Negative for pain and visual disturbance. Respiratory: Negative for cough and shortness of breath. Cardiovascular: Negative for chest pain and leg swelling. Gastrointestinal: Negative for abdominal pain, constipation and nausea. Musculoskeletal: Positive for arthralgias, gait problem and neck stiffness. Negative for back pain. Neurological: Negative for dizziness and light-headedness. Psychiatric/Behavioral: Negative for confusion and sleep disturbance. Objective BP 119/65 Pulse 57 Temp 99.1 F (37.3 C) (Temporal) Resp 14 Ht 5' 10 (1.778 m) Wt 214 lb 1.1 oz (97.1 kg) SpO2 94% BMI 30.72 kg/m Intake/Output Summary (Last 24 hours) at 05/21/2021 1447 Last data filed at 05/21/2021 1237 Gross per 24 hour Intake Output 1150 ml Net -1150 ml No data found. Current Facility-Administered Medications: isosorbide dinitrate (ISORDIL) tablet 30 mg, 30 mg, Oral, Daily amLODIPine (NORVASC) tablet 5 mg, 5 mg, Oral, Daily polyethylene glycol (GLYCOLAX) packet 17 g, 17 g, Oral, Daily senna (SENOKOT) tablet 8.6 mg, 1 tablet, Oral, Nightly tamsulosin (FLOMAX) capsule 0.4 mg, 0.4 mg, Oral, Daily oxyCODONE (ROXICODONE) immediate release tablet 10 mg, 10 mg, Oral, Q4H PRN OR [DISCONTINUED] oxyCODONE (ROXICODONE) immediate release tablet 10 mg, 10 mg, Oral, Q4H PRN traZODone (DESYREL) tablet 100 mg, 100 mg, Oral, Nightly lidocaine 4 % external patch 1 patch, 1 patch, TransDERmal, Daily enoxaparin (LOVENOX) injection 30 mg, 30 mg, SubCUTAneous, BID clopidogrel (PLAVIX) tablet 75 mg, 75 mg, Oral, Daily labetalol (NORMODYNE;TRANDATE) injection 10 mg, 10 mg, IntraVENous, Q4H PRN hydrALAZINE (APRESOLINE) injection 10 mg, 10 mg, IntraVENous, Q4H PRN docusate sodium (COLACE) capsule 100 mg, 100 mg, Oral, BID melatonin tablet 3 mg, 3 mg, Oral, Nightly PHENobarbital (LUMINAL) tablet 32.4 mg, 32.4 mg, Oral, TID PHENobarbital (LUMINAL) tablet 64.8 mg, 64.8 mg, Oral, BID acetaminophen (TYLENOL) tablet 1,000 mg, 1,000 mg, Oral, 3 times per day diazePAM (VALIUM) tablet 10 mg, 10 mg, Oral, TID sodium chloride flush 0.9 % injection 5-40 mL, 5-40 mL, IntraVENous, 2 times per day sodium chloride flush 0.9 % injection 5-40 mL, 5-40 mL, IntraVENous, PRN 0.9 % sodium chloride infusion, 25 mL, IntraVENous, PRN ondansetron (ZOFRAN-ODT) disintegrating tablet 4 mg, 4 mg, Oral, Q8H PRN OR ondansetron (ZOFRAN) injection 4 mg, 4 mg, IntraVENous, Q6H PRN miconazole (MICOTIN) 2 % powder, , Topical, BID Physical Exam Constitutional: General: He is not in acute distress. Appearance: He is well-developed. He is not diaphoretic. Comments: Lying in bed sleeping, easily awakens to verbal stimuli HENT: Right Ear: External ear normal. Left Ear: External ear normal. Eyes: General: Right eye: No discharge. Left eye: No discharge. Conjunctiva/sclera: Conjunctivae normal. Neck: Comments: C collar in place Cardiovascular: Rate and Rhythm: Normal rate and regular rhythm. Heart sounds: Normal heart sounds. Pulmonary: Effort: Pulmonary effort is normal. No respiratory distress. Breath sounds: Normal breath sounds. No wheezing. Abdominal: General: Bowel sounds are normal. There is no distension. Palpations: Abdomen is soft. Tenderness: There is no abdominal tenderness. Musculoskeletal: Right lower leg: No edema. Left lower leg: No edema. Neurological: Mental Status: He is alert. Sensory: No sensory deficit. Comments: Alert and oriented to person, place, month and year- not day Follows commands Psychiatric: Comments: Cooperative, no agitation Labs and Imaging: Recent Results (from the past 24 hour(s)) Hepatic Function Panel Collection Time: 05/21/21 7:09 AM Result Value Ref Range Albumin,Serum 3.9 3.5 - 5.0 g/dL Total Protein 7.1 6.3 - 8.2 g/dL Total Bilirubin 0.7 0.2 - 1.3 mg/dL Bilirubin, Direct 0.0 0.0 - 0.3 mg/dL Alkaline Phosphatase 79 38 - 126 U/L ALT 21 0 - 49 U/L AST 44 15 - 46 U/L PSA Screening Collection Time: 05/21/21 7:09 AM Result Value Ref Range PSA 2.180 <4.000 ng/mL Lab Results Component Value Date TSH 1.400 05/17/2021 Lab Results Component Value Date [id number] 05/17/2021 Lab Results Component Value Date [id number] 45 05/17/2021 Reviewed: active problem list, medication list, allergies, notes from last encounter, lab results Physical Therapy Attempted PT, RN at bedside and said now is not a good time secondary to pain. Will re-attempt as schedule permits. Nursing notified me of a witnessed seizure. Patient was reported to have had tremors to his extremities and was initially nonverbal following the event. He was reported to then be confused and stated he was in a [employer] cho[employer] in [place] . He has a known history of seizures and PTSD. I evaluated the patient at the bedside following the event, he was awake and alert and oriented X4 at this baseline. He was able to move all exts with full strength and sensation. His CNII-XII were intact. He states he recalls having ringing in his ears and seeing multiple colors prior to the seizure which is a typical barbara that he has experienced in the past. He also states that he typically with have flashbacks of his time in [place] and can hear, see and smell the events that he recalls from the time in served in the . RR 14 HR 64 BP 133/75 98% 3L [place] Neurology consult was placed. Will continue to monitor. Occupational Therapy Facility/Department: [facility] H5 MED SURG Daily Treatment Note Pt. Appears agitated and nursing asking therapies to come back later. OT will re-attempt to see pt. As schedule permits. NAME: Bear Shine : 1950 Date of Service: 05/21/2021 BYRON Quezada This RN was called to room by helping hands RN after answering call light. Pt stated that he felt as if he was going to have a seizure. This RN, secondary RN and patient care nursing assistant witnessed episode. Provider was notified. Seizure precautions initiated. Medication administered per orders. Daily Trauma Progress Note NANDO 05/21/2021 6:17 AM Admit Date: 05/16/2021 Post Trauma Day 5 Fall SH HISTORY OF TRAUMATIC EVENT: 71 y.o. male status post fall. The incident happened around 05/16 on 03:00 at home. When the event happened the patient was with his dog Michaelle and lost balance and fell and hit his dog's cage. Denies LOC. INJURIES: - C1 lateral mass and posterior arch fx PROCEDURES: None INCIDENTAL FINDINGS: Carotid stenosis CHIEF COMPLAINT: Neck pain PREVIOUS 24 HOUR EVENTS: -Urinary Retention resolved. -Agreeable to go to rehab facility Consults: IP CONSULT TO ORTHOPEDIC SURGERY IP CONSULT TO GERIATRICS IP CONSULT TO PALLIATIVE CARE MEDICATIONS: Current Facility-Administered Medications Medication Dose Route Frequency Provider Last Rate Last Admin isosorbide dinitrate (ISORDIL) tablet 30 mg 30 mg Oral Daily June 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 30 mg at 05/20/21 0833 amLODIPine (NORVASC) tablet 5 mg 5 mg Oral Daily June 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 5 mg at 05/20/21 0835 polyethylene glycol (GLYCOLAX) packet 17 g 17 g Oral Daily June 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 17 g at 05/20/21 0831 senna (SENOKOT) tablet 8.6 mg 1 tablet Oral Nightly June 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 8.6 mg at 05/20/212134 tamsulosin (FLOMAX) capsule 0.4 mg 0.4 mg Oral Daily June 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 0.4 mg at 05/20/21 0832 oxyCODONE (ROXICODONE) immediate release tablet 10 mg 10 mg Oral Q4H PRN Bienvenido Mcleod MD 10 mg at 05/21/21 0533 traZODone (DESYREL) tablet 100 mg 100 mg Oral Nightly Bienvenido Mcleod MD 100 mg at 05/20/21 213 cyclobenzaprine (FLEXERIL) tablet 5 mg 5 mg Oral TID PRN Bienvenido Mcleod MD 5 mg at 05/19/21 0938 lidocaine 4 % external patch 1 patch 1 patch TransDERmal Daily Bienvenido Mcleod MD 1 patch at 05/20/21 0838 enoxaparin (LOVENOX) injection 30 mg 30 mg SubCUTAneous BID Bienvenido Mcleod MD 30 mg at 05/20/212134 clopidogrel (PLAVIX) tablet 75 mg 75 mg Oral Daily Bienvenido Mcleod MD 75 mg at 05/20/2133 labetalol (NORMODYNE;TRANDATE) injection 10 mg 10 mg IntraVENous Q4H PRN Bienvenido Mcleod MD 10 mg at 05/20/212135 hydrALAZINE (APRESOLINE) injection 10 mg 10 mg IntraVENous Q4H PRN Bienvenido Mcleod MD docusate sodium (COLACE) capsule 100 mg 100 mg Oral BID Bienvenido Mcleod MD 100 mg at 05/20/212134 melatonin tablet 3 mg 3 mg Oral Nightly Bienvenido Mcleod MD 3 mg at 05/20/212134 PHENobarbital (LUMINAL) tablet 32.4 mg 32.4 mg Oral TID Bienvenido Mcleod MD 32.4 mg at 05/20/212134 PHENobarbital (LUMINAL) tablet 64.8 mg 64.8 mg Oral BID Bienvenido Mcleod MD 64.8 mg at 05/20/212135 acetaminophen (TYLENOL) tablet 1,000 mg 1,000 mg Oral 3 times per day Bienvenido Mcleod MD 1,000 mg at 05/21/2133 diazePAM (VALIUM) tablet 10 mg 10 mg Oral TID Binevenido Mcleod MD 10 mg at 05/20/212134 sodium chloride flush 0.9 % injection 5-40 mL 5-40 mL IntraVENous 2 times per day Bienvenido Mcleod MD 10 mL at 05/20/212134 sodium chloride flush 0.9 % injection 5-40 mL 5-40 mL IntraVENous PRN Bienvenido Mcleod MD 0.9 % sodium chloride infusion 25 mL IntraVENous PRN Bienvenido Mcleod MD ondansetron (ZOFRAN-ODT) disintegrating tablet 4 mg 4 mg Oral Q8H PRN Bienvenido Mcleod MD Or ondansetron (ZOFRAN) injection 4 mg 4 mg IntraVENous Q6H PRN Bienvenido Mcleod MD miconazole (MICOTIN) 2 % powder Topical BID Bienvenido Mcleod MD Given at 05/20/21 0840 ARE THERE PERTINENT UPDATES TO PAST,FAMILY, OR SOCIAL HISTORY?: No Subjective: States he is feeling fine, pain controlled. Now agreeable to be discharged to a facility for rehab. He is voiding and denies any additional urinary retention. Review of Systems Constitutional: Positive for activity change. HENT: Negative. Respiratory: Negative for cough and shortness of breath. Cardiovascular: Negative. Negative for chest pain. Gastrointestinal: Negative for constipation. Genitourinary: Negative. Negative for difficulty urinating. Musculoskeletal: Positive for arthralgias, neck pain and neck stiffness. Chronic low back pain Skin: Positive for wound. Neurological: Negative. Negative for headaches. Psychiatric/Behavioral: Negative. Negative for confusion. All other systems reviewed and are negative. PHQ In the last 2 weeks have you had: 1. Little interest or pleasure in doing things No 2. Been feeling down, depressed, or hopeless No If greater then 0, place CLP consult Date PHQ completed: Objective: Patient Vitals for the past 24 hrs: BP Temp Temp src Pulse Resp SpO2 05/21/21 0537 (!) 143/77 98.2 F (36.8 C) Temporal 56 97 % 05/21/21 0040 130/61 98.6 F (37 C) Temporal 58 18 100 % 05/20/21 2119 (!) 170/83 99.2 F (37.3 C) Temporal 67 20 91 % 05/20/21 1244 (!) 140/82 98.3 F (36.8 C) Tympanic 61 16 95 % 05/20/21 1151 54 05/20/21 0831 (!) 149/78 98.2 F (36.8 C) Tympanic 53 16 97 % Last BM: 05/20 Diet: Regular CVP: No Chest Tubes: R: No L: No PHYSICAL: Physical Exam Vitals reviewed. Constitutional: Appearance: Normal appearance. HENT: Head: Normocephalic. Comments: Abrasion to forehead C collar in place Right Ear: External ear normal. Left Ear: External ear normal. Nose: Nose normal. Mouth/Throat: Mouth: Mucous membranes are moist. Pharynx: Oropharynx is clear. Eyes: Conjunctiva/sclera: Conjunctivae normal. Neck: Comments: Elgin collar in place Cardiovascular: Rate and Rhythm: Normal rate. Pulses: Normal pulses. Pulmonary: Effort: Pulmonary effort is normal. Abdominal: General: Abdomen is flat. Palpations: Abdomen is soft. Tenderness: There is no abdominal tenderness. Musculoskeletal: General: Normal range of motion. Right lower leg: No edema. Left lower leg: No edema. Skin: General: Skin is warm and dry. Capillary Refill: Capillary refill takes 2 to 3 seconds. Comments: Scalp abrasion noted Neurological: General: No focal deficit present. Mental Status: He is alert and oriented to person, place, and time. Mental status is at baseline. Psychiatric: Mood and Affect: Mood normal. Behavior: Behavior normal. Sutures or tammy? No O2: 3 L [place], states he has home O2 that he uses prn / / / Data Review Data CBC with Differential: Lab Results Component Value Date WBC 7.7 05/19/2021 RBC 4.99 05/19/2021 HGB 16.1 05/19/2021 HCT 49.9 05/19/2021 PLT 135 05/19/2021 CMP: Lab Results Component Value Date NA 135 05/19/2021 K 4.2 05/19/2021 CL 97 05/19/2021 CO2 35 05/19/2021 BUN 11 05/19/2021 CREATININE 1.06 05/19/2021 GLUCOSE 80 05/19/2021 CALCIUM 8.6 05/19/2021 BMP: Hepatic Function Panel:Ionized Calcium: Lab Results Component Value Date IONCA 4.10 08/18/2018 Magnesium: Lab Results Component Value Date MG 2.1 08/19/2018 Phosphorus: Lab Results Component Value Date PHOS 2.6 08/19/2018 PT/INR: No results found for: PROTIME, INR PTT: No results found for: APTT[APTT Last 3 Troponin: No results found for: TROPONINI Urine Culture: No components found for: CURINE Blood Culture: No components found for: CBLOOD, CFUNGUSBL Blood Culture from Central Line: No components found for: CBLOODLN Stool Culture: No components found for: CSTOOL Sputum Culture: No components found for: CSPUTUM Sputum Culture for AFB: No components found for: CAFBSM Wound Culture: Na Radiology: XR CERVICAL SPINE (2-3 VIEWS) Result Date: 05/18/2021 Patient Name: BEAR SHINE Diagnostic Radiology ACCESSION EXAM DATE/TIME PROCEDURE ORDERING PROVIDER [id number] 05/17/2021 09:44 EST CR Spine Cervical 2 or 3 MD NEGRON BLAKE Views CPT code 00653 Reason For Exam (CR Spine Cervical 2 or 3 Views) AP/Lateral in collar C1 Fx Report CERVICAL SPINE: CLINICAL INDICATION: C1 fracture TECHNIQUE: AP, lateral nd open mouth plus flexion and extension views COMPARISON: None FINDINGS: Exam quality: The study is limited due to the patient's body habitus, overlying radiopaque structures and inability to optimally position the patient. . The C1 fracture is not readily identified on these conventional radiographs. There is no malalignment at the articulation between C1 and the occiput and C1 and C2. There is limited visualization below C4 on the lateral views. Marked anterior spurring is noted at C2-C4. Disc space narrowing is noted at C2-C3 and C3-C4. The retropharyngeal and retrotracheal soft tissues are unremarkable. IMPRESSION: C1 fractures are not appreciable on these conventional radiographs. Anterior spurring about the upper cervical vertebrae and disc space narrowing. Report Dictated on --- Final --- Dictated: 05/18/2021 5:25 am Dictating Physician: MD NIELSON JEFFREY Signed Date and Time: 05/18/2021 5:31 am Signed by: MD NIELSON JEFFREY Transcribed Date and Time: 05/18/2021 5:25 XR SHOULDER LEFT 1 VW Result Date: 05/17/2021 Patient Name: BEAR SHINE Diagnostic Radiology ACCESSION EXAM DATE/TIME PROCEDURE ORDERING PROVIDER [id number] 05/17/2021 02:25 EST CR Shoulder 1 View Left MD NEGRON BLAKE CPT code 89596 Reason For Exam (CR Shoulder 1 View Left) Axillary L Shoulder Report LEFT SHOULDER: CLINICAL INDICATION: Fall injury with pain. TECHNIQUE: Axillary view only COMPARISON: None. FINDINGS: There is some cortical irregularity about the greater tuberosity. No other fracture or dislocation is identified. IMPRESSION: Limited axillary view demonstrate some cortical irregularity about the greater tuberosity but no definite fracture or dislocation. Report Dictated on --- Final --- Dictated: 05/17/2021 3:51 am Dictating Physician: MD NIELSON JEFFREY Signed Date and Time: 05/17/2021 3:53 am Signed by: MD NIELSON JEFFREY Transcribed Date and Time: 05/17/2021 3:51 CT HEAD WO CONTRAST Result Date: 05/17/2021 Patient Name: BEAR SHINE Computed Tomography ACCESSION EXAM DATE/TIME PROCEDURE ORDERING PROVIDER [id number] 05/17/2021 05:[address] Head or Brain w/o [id number] -PIA, MIGUEL ANGEL Contrast CPT code 55538 Reason For Exam (CT Head or Brain w/o Contrast) repeat CT head, fall on blood thinners, forehead abrasion, known C1 fx. No earlier than 04:[address] HEAD: CLINICAL INDICATION: Trauma with known C1 fracture with previous images from [facility] TECHNIQUE: Transaxial CT sequence performed through the head with 3 mm reconstruction. Sagittal and Coronal reconstruction images included. Dose reduction employed with automated exposure control. COMPARISON: None FINDINGS: Ventricles and Extra-axial spaces: Normal in size and morphology for the patient's age. No abnormal extracerebral collection identified. Cerebral and cerebellar parenchyma: No regions of abnormal increased or decreased attenuation, mass lesion or evidence of acute infarct. Hemorrhage: None Brainstem: Normal Visualized Paranasal sinuses: Normal. Mastoid air cells: Normal Visualized Orbits: Normal Calvarium and skull base: There is no CT evidence of fracture of the calvarium. A comminuted fracture of the left lateral mass of C1 extends into the posterior lamina. There is a triangular-shaped fragment measuring up to 1.3 cm projecting into the left side of the spinal canal IMPRESSION: 1. No acute intracranial abnormality 2. C1 fracture on the left. Computed Tomography Report Report Dictated on --- Final --- Dictated: 05/17/2021 6:17 am Dictating Physician: MD NIELSON JEFFREY Signed Date and Time: 05/17/2021 6:21 am Signed by: MD NIELSON JEFFREY Transcribed Date and Time: 05/17/2021 6:18 CTA NECK W WO CONTRAST Result Date: 05/17/2021 Patient Name: BEAR SHINE Computed Tomography ACCESSION EXAM DATE/TIME PROCEDURE ORDERING PROVIDER [id number] 05/17/2021 05:31 EST CTA Neck w/ + w/o MD NEGRON BLAKE Contrast CPT code 18744 Q9967 Reason For Exam (CTA Neck w/ + w/o Contrast) C1 Fracture Report CT ANGIOGRAPHY NECK: CLINICAL INDICATION: Trauma with known C1 fracture with previous images from [facility] TECHNIQUE: Multidetector spiral transaxial sequence was performed from the upper mediastinum through the skull base during dynamic intravenous infusion of 75 mL of nonionic contrast media, injected at a high flow rate following a heel cementer machine study. Images were reconstructed with soft tissue and bone algorithm at 0.5 mm transaxial destruction. Multiplanar and 3D MIP reconstruction was performed concurrently on an independent viewing workstation with 1 mm reconstruction. Measurement of carotid stenosis is a ratio based on conventional angiographic data from the NASCET trials with the smallest caliber of the internal carotid as the numerator and normal post-stenotic internal carotid caliber as denominator. Dose reduction was employed with automated exposure control. COMPARISON: Outside CT examination FINDINGS: Aortic arch and great vessel origins: Normal. Right common and external carotid: Normal. Right internal carotid: Minimal stenosis near the origin in the range of less than 30 percent. Left common and external carotid: Normal. Left internal carotid: Minimal stenosis near the origin in the range of less than 30 percent. Vertebral arteries: Patent flow is noted within both vertebral arteries. The left distal vertebral artery courses directly adjacent to the comminuted fracture of the left lateral mass of C1. The vessel enters the spinal canal at C1 and remains patent into the basilar artery. No focal stenotic segment or dissection is identified. Neck: No cystic or solid mass within the deep or superficial spaces of the neck. Unremarkable salivary glands and thyroid. No enlarged lymph nodes. No abnormality within the airways. Unremarkable lung apices. Computed Tomography Report Comminuted fracture the left lateral mass of C1 is noted as identified on CT head and prior CT cervical spine. There is also anterior spurring with flowing ossification about the vertebrae from C3 through C7. IMPRESSION: 1. Patent left vertebral artery without evidence of traumatic stenosis or dissection near the site of the C1 fracture 2. Patent right vertebral artery along with patent carotid arteries without hemodynamically significant internal carotid artery stenosis 3. No intracranial arterial abnormality. Report Dictated on --- Final --- Dictated: 05/17/2021 6:22 am Dictating Physician: MD NIELSON JEFFREY Signed Date and Time: 05/17/2021 6:35 am Signed by: MD NIELSON JEFFREY Transcribed Date and Time: 05/17/2021 6:22 CT THORACIC SPINE WO CONTRAST Result Date: 05/17/2021 Patient Name: BEAR SHINE Computed Tomography ACCESSION EXAM DATE/TIME PROCEDURE ORDERING PROVIDER [id number] 05/17/2021 05:[address] Spine Thoracic w/o MD JAMIL, NERISSA Contrast CPT code 91622 Reason For Exam (CT Spine Thoracic w/o Contrast) Back pain - Trauma with DISH Report CT THORACIC AND LUMBAR SPINE : CLINICAL INDICATION: Trauma with back pain TECHNIQUE: Transaxial sequence through the thoracic and separately through the lumbar spine with 1 mm reconstruction interval. Multiplanar reconstruction imaging was performed. COMPARISON: None FINDINGS: The vertebrae and joints: No wedge fracture or compression deformity of the thoracic and lumbar vertebral bodies is noted. There are large anterior marginal osteophytes bridging the vertebrae from T3 through L2. There is some sclerosis along the anterior aspect of these vertebrae as well. No other lytic bone lesion is identified. The facet joints demonstrate minor hypertrophic change at L4-L5 and L5-S1. Intervertebral disc spaces and spinal canal: Generalized disc space narrowing is noted throughout the thoracic levels. Lumbar disc levels demonstrate minor narrowing at L4-L5. There is no widening of the disc spaces. There is minor bony foraminal spinal stenosis at L4-L5 without other bony spinal stenosis. Soft tissues: Visualized portions of the lungs demonstrate dependent atelectasis. There is no consolidation. Cardiac chambers are relatively large. There is coronary artery calcification. No mediastinal or hilar mass is noted on this noncontrast study. Adrenals, pancreas and kidneys demonstrate no abnormality. There is dense atherosclerotic calcified abdominal aorta. No enlarged retroperitoneal lymph nodes are noted. IMPRESSION: 1. No thoracic or lumbar fracture identified 2. Flowing ossification about the anterior aspect of the vertebrae from T3-L2 corresponding to diffuse idiopathic skeletal hyperostosis. 3. Minor bony spinal stenosis at L4-L5 Computed Tomography Report Report Dictated on --- Final --- Dictated: 05/17/2021 6:36 am Dictating Physician: MD NIELSON JEFFREY Signed Date and Time: 05/17/2021 6:42 am Signed by: MD NIELSON JEFFREY Transcribed Date and Time: 05/17/2021 6:36 CT LUMBAR SPINE WO CONTRAST Result Date: 05/17/2021 Patient Name: BEAR SHINE Computed Tomography ACCESSION EXAM DATE/TIME PROCEDURE ORDERING PROVIDER [id number] 05/17/2021 05:[address] Spine Lumbar w/o MD NEGRON BLAKE Contrast CPT code 35505 Reason For Exam (CT Spine Lumbar w/o Contrast) Back Pain w/ DISH Report CT THORACIC AND LUMBAR SPINE : CLINICAL INDICATION: Trauma with back pain TECHNIQUE: Transaxial sequence through the thoracic and separately through the lumbar spine with 1 mm reconstruction interval. Multiplanar reconstruction imaging was performed. COMPARISON: None FINDINGS: The vertebrae and joints: No wedge fracture or compression deformity of the thoracic and lumbar vertebral bodies is noted. There are large anterior marginal osteophytes bridging the vertebrae from T3 through L2. There is some sclerosis along the anterior aspect of these vertebrae as well. No other lytic bone lesion is identified. The facet joints demonstrate minor hypertrophic change at L4-L5 and L5-S1. Intervertebral disc spaces and spinal canal: Generalized disc space narrowing is noted throughout the thoracic levels. Lumbar disc levels demonstrate minor narrowing at L4-L5. There is no widening of the disc spaces. There is minor bony foraminal spinal stenosis at L4-L5 without other bony spinal stenosis. Soft tissues: Visualized portions of the lungs demonstrate dependent atelectasis. There is no consolidation. Cardiac chambers are relatively large. There is coronary artery calcification. No mediastinal or hilar mass is noted on this noncontrast study. Adrenals, pancreas and kidneys demonstrate no abnormality. There is dense atherosclerotic calcified abdominal aorta. No enlarged retroperitoneal lymph nodes are noted. IMPRESSION: 1. No thoracic or lumbar fracture identified 2. Flowing ossification about the anterior aspect of the vertebrae from T3-L2 corresponding to diffuse idiopathic skeletal hyperostosis. 3. Minor bony spinal stenosis at L4-L5 Computed Tomography Report Report Dictated on --- Final --- Dictated: 05/17/2021 6:36 am Dictating Physician: MD NIELSON JEFFREY Signed Date and Time: 05/17/2021 6:42 am Signed by: MD NIELSON JEFFREY Transcribed Date and Time: 05/17/2021 6:36 XR PELVIS (1-2 VW) Result Date: 05/17/2021 [id number] ACCESSION EXAM DATE/TIME PROCEDURE ORDERING PROVIDER [id number] 05/17/2021 00:31 EST CR Pelvis 1 or 2 Views [id number] -MIGUEL ANGEL PALACIO CPT code 08026 Reason For Exam (CR Pelvis 1 or 2 Views) fall, trauma Report PELVIS: CLINICAL INDICATION: Fall injury with pain. TECHNIQUE: AP COMPARISON: None. FINDINGS: Exam quality: The study is limited due to rotation. There is no evidence for fracture or dislocation. The hips joints are unremarkable. The sacroiliac joints are normal. No bone lesion is identified. Surgical clips overlie the soft tissues about the right-sided pelvis.. IMPRESSION: Limited study. No acute bony abnormality. Report Dictated on --- Final --- Dictated: 05/17/2021 1:46 am Dictating Physician: MD NIELSON JEFFREY Signed Date and Time: 05/17/2021 1:47 am Signed by: MD NIELSON JEFFREY Transcribed Date and Time: 05/17/2021 1:46 Patient Active Problem List Diagnosis Cervical compression fracture, initial encounter ([facility]) Fungal infection of the groin Insomnia PTSD (post-traumatic stress disorder) Seizure (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) Trauma Urinary retention Obesity (BMI 30-39.9) ASSESSMENT: 71 y/o M s/p mechanical fall at home. Found to have a C1 lateral mass fracture. PLAN: Neuro/Spine: - Ortho spine consulted - Remain in c-collar for 3 months, f/u in 10 days - Initial head CT read at [place] 05/16 20:22 as normal - Pain: PO tylenol 1g q8h shana, Valium, lidocaine patches, prn oxy - Home phenobarb PO - Home diazepam 10 mg PO TID - Start home trazodone 300mg qhs - Melatonin 3mg qhs - Consult palliative care - Delirium protocol - Seizure precautions, consult to Neurology: Witnessed seizure 05/21 HEENT: - C collar for 3 months Cardiovascular: - PRN labetalol/hydralazine - Home Isordil 30 mg qd PO - Hypertensive: start Norvasc 5mg daily - Home plavix Pulmonary: - IS - Cough and deep breathe -Oxygen protocol, wears Home O2 prn FEN/GI: - Regular diet - Bowel regimen - PRN zofran : - CrCl: 73 - Remove castelan 05/19 - Start flomax - Urinary retention; Straight cath X 1 05/20 - Monitor urine output, bladder scan prn - 05/21 Urinary retention resolved Heme: - DC daily labs ID: - No acute issues Endo: - No acute issues Lines/Devices: - PIV Prophylaxis: DVT: Lovenox 30 BID Has DVT PPX been started? Yes If no, why? na GI: NA Pressure Ulcer: None Musculoskeletal: - PT/OT rec FBT WB Status: RUE:wbat LUE: wbat RLE: wbat LLE: wbat Is the patient in restraints?: no Disposition: Continue H5 care, Cervical collar at all times until cleared by Ortho. PT/OT recs for facility based rehab. Dispo planning. Associated attestation - Natalia Molina MD - 05/21/2021 2:38 PM EDT ~~~~~~~~~~~~~~~~~~~~~~~~~~~~~~~~~ ~~~~~~~~~~~~~~~~~~~~~~~~~~~~ ATTENDING ADDENDUM Active Diagnoses/Problems this Admission: Hospital Problems Last Modified POA Fall 05/21/2021 Yes Acute traumatic pain 05/21/2021 Yes Trauma 05/16/2021 Yes Urinary retention 05/17/2021 Yes Obesity (BMI 30-39.9) 05/20/2021 Yes Closed nondisplaced lateral mass fracture of first cervical vertebra (HCC) 05/21/2021 Yes Fracture 05/21/2021 Yes Polypharmacy 05/21/2021 Yes Seizures (HCC) 05/21/2021 Yes At risk for confusion 05/21/2021 Yes Drug-induced constipation 05/21/2021 Yes I personally supervised the STREET LIGHT REPAIRER HELPER/PA-C in the evaluation and development of a treatment plan for this patient on the same day of service as above. I personally discussed the review of systems and interviewed the patient along with performing a physical examination. I reviewed the recent events, imaging, labs, vital signs. In addition, I discussed the patient's condition and treatment options with him/her when possible. I have also reviewed and agree with the past medical, family, and social history unless otherwise noted. All of the patient's questions were answered and family updated when appropriate and possible. A complete review of systems was obtained and is negative except as stated in HPI. Per Inge Rain APRN note Patient had a witnesses seizure today - consult neurology - history of seizures on home vimpat and phenobarb - seizure precautions C1 fx s/p mech fall - ortho spine --> c collar x 3 months - multimodal pain control Urinary retention - improved - flomax Restart home meds On home O2 DVT ppx OOB Dispo pending - rehab Natalia Molina MD Division of Trauma Department of Surgery [facility] Pager: [phone] ~~~~~~~~~~~~~~~~~~~~~~~~~~~~~~~~~ ~~~~~~~~~~~~~~~~~~~~~~~~~~~~ This note may have been dictated using [facility] Edition 2.6 and/or Quench Voice Recognition Feature. The document was proofread; however, unrecognized voice recognition turkey picker errors may be present. Images from the original note were not included. [facility] Geriatric Medicine Inpatient Consult Service Admission Date: 05/16/2021 Assessment Active Problems: Trauma Urinary retention Resolved Problems: * No resolved hospital problems. * Plan Fall - Multiple risk factors including decreased hearing, decreased vision, chronic pain and possible medication side effect - Continue PT/OT as able while inpatient - Vitamin D within normal limits - continue home supplementation - Check orthostatic vital signs as able - Medications with associated fall risk include: Oxycodone, diazepam, phenobarbital - PT recommending facility based therapy Nondisplaced fracture of the left posterior neural arch of C1 and comminuted fracture of the left lateral mass - C-collar to remain in place x3 months - MAR reviewed- receiving scheduled Tylenol 1000 mg q8h, oxycodone 10 mg q6h PRN (took twice yesterday) - Takes Oxycodone 10 mg 4 times daily at home according to OARRS report - Pain well controlled on this regimen - Monitor for BM- no documented BM this admission Polypharmacy - Follow up with Pharmacy to confirm outpatient medications - Patient on barbiturate/benzodiazepine/narcot ics which all have potential to contribute to falls, however appears to be on aleida/benzo chronically, ok to continue these medications to prevent risk of withdrawal. Upon further discussion it is possible that benzo is prescribed PRN for breakthrough seizures. Appreciate pharmacy assistance in confirming outpatient meds. - Would avoid muscle relaxer if not totally necessary (oredered 5 mg TID PRN - received once yesterday) Seizures - Filling Phenobarb and Diazepam regularly per OARRS report, though Vimpat also on home med list (unconfirmed) - Agree with continuing Phenobarb and Diazepam for now (see above) - Check phenobarb level At risk for confusion - Risk factors for this patient include: Hearing loss, pain, medication withdrawal, urinary retention - Delirium protocol - Continue evidence-based nonpharmacologic interventions for prevention and treatment of delirium: - redirect/reorient/reassure frequently - avoid restraints and instead utilize sitter as needed for safety - early mobilization as medically appropriate, OOB for meals as able - have patient use glasses and hearing aides - use familiar objects (family photos and items from home) - sleep hygiene, limit nighttime care to promote sleep/wake cycle - hydrate and encourage PO intake when medically appropriate - minimize/camouflage lines and tethers as able - minimize narcotics as long as pain is adequately controlled - avoid benzos and anticholinergic medications -Avoid antipsychotics unless patient is a danger to themselves or others. -Encourage PO intake, time up in chair, family visits, supervised ambulation and sleep hygiene -If agitated, assess for and consider treating for pain -Start scheduled melatonin at HS -Monitor for constipation/urinary retention - last BM unknown Urinary retention - Required straight cath overnight - Started on flomax - Monitor UOP Constipation - No documented BM this admission, patient chronically on narcotics - Receiving Colace 100 mg BID for the last 3 days, glycolax 17 g daily yesterday and today - Dulcolax suppository added this AM - Monitor for BM - Consider escalating home bowel regimen if going to be taking narcotics in the [place] [facility] Follow-up: will follow with you Subjective Chief Complaint: fall Geriatrics consulted for Trauma due to fall HPI- The patient is new to me but seen by the Geriatric Inpatient Consult team. 71 y.o. year-old male admitted to acute care from home for fall. Fell after tripping over his dog. Diagnosed with nondisplaced fracture of the left posterior neural arch of C1 and comminuted fracture of the left lateral mass. Interval History: Transferred to general medical/surgical floor yesterday morning from ICU. Required straight cath overnight for urinary retention. Patient seen this morning lying in bed with C-collar in place. No complaints currently. Keeps eyes closed for the majority of exam due to headache, opens them when asked. Discussed seizure disorder further, states that his last seizure was in Oct/Nov when hospitalized in [place] for shoulder dislocation. Confirms that he is on phenobarb but unable to confirm wether or not he is taking Valium regularly. Does note that he is on something for when he feels a seizure starting to come on. Confirms that he is taking oxycodone regularly at home. Denies taking vimpat. Alert and oriented to self, hospital, situation. States he would like to go home and has home health for 4 hrs daily for any home assistance necessary. Seen by PT this morning. Maximum-2 Person assist. Ambulated 4 feet, with Slow Emmie; Decreased step length; Decreased step height. Recommending facility based therapy. Review of Systems Constitutional: Negative for chills, diaphoresis, fatigue and fever. HENT: Positive for hearing loss. Negative for congestion, ear pain, rhinorrhea and sore throat. Eyes: Negative for pain and visual disturbance. Respiratory: Negative for cough, shortness of breath and wheezing. Cardiovascular: Negative for chest pain and leg swelling. Gastrointestinal: Positive for constipation. Negative for abdominal distention, abdominal pain, nausea and vomiting. Genitourinary: Positive for difficulty urinating. Negative for dysuria and hematuria. Musculoskeletal: Positive for arthralgias, neck pain and neck stiffness. Negative for back pain. Skin: Negative for rash and wound. Neurological: Negative for dizziness, syncope, weakness, light-headedness, numbness and headaches. Psychiatric/Behavioral: Negative for confusion. Objective BP (!) 149/78 Pulse 53 Temp 98.2 F (36.8 C) (Tympanic) Resp 16 Ht 5' 10 (1.778 m) Wt 214 lb 1.1 oz (97.1 kg) SpO2 97% BMI 30.72 kg/m Intake/Output Summary (Last 24 hours) at 05/20/2021 0927 Last data filed at 05/20/2021 0602 Gross per 24 hour Intake 170 ml Output 2175 ml Net -2005 ml Patient Vitals for the past 96 hrs (Last 3 readings): Weight 05/17/21 0700 214 lb 1.1 oz (97.1 kg) Current Facility-Administered Medications: bisacodyl (DULCOLAX) suppository 10 mg, 10 mg, Rectal, Once fleet rectal enema 1 enema, 1 enema, Rectal, Once PRN isosorbide dinitrate (ISORDIL) tablet 30 mg, 30 mg, Oral, Daily amLODIPine (NORVASC) tablet 5 mg, 5 mg, Oral, Daily polyethylene glycol (GLYCOLAX) packet 17 g, 17 g, Oral, Daily senna (SENOKOT) tablet 8.6 mg, 1 tablet, Oral, Nightly tamsulosin (FLOMAX) capsule 0.4 mg, 0.4 mg, Oral, Daily oxyCODONE (ROXICODONE) immediate release tablet 10 mg, 10 mg, Oral, Q4H PRN OR [DISCONTINUED] oxyCODONE (ROXICODONE) immediate release tablet 10 mg, 10 mg, Oral, Q4H PRN traZODone (DESYREL) tablet 100 mg, 100 mg, Oral, Nightly cyclobenzaprine (FLEXERIL) tablet 5 mg, 5 mg, Oral, TID PRN lidocaine 4 % external patch 1 patch, 1 patch, TransDERmal, Daily enoxaparin (LOVENOX) injection 30 mg, 30 mg, SubCUTAneous, BID clopidogrel (PLAVIX) tablet 75 mg, 75 mg, Oral, Daily labetalol (NORMODYNE;TRANDATE) injection 10 mg, 10 mg, IntraVENous, Q4H PRN hydrALAZINE (APRESOLINE) injection 10 mg, 10 mg, IntraVENous, Q4H PRN docusate sodium (COLACE) capsule 100 mg, 100 mg, Oral, BID melatonin tablet 3 mg, 3 mg, Oral, Nightly PHENobarbital (LUMINAL) tablet 32.4 mg, 32.4 mg, Oral, TID PHENobarbital (LUMINAL) tablet 64.8 mg, 64.8 mg, Oral, BID acetaminophen (TYLENOL) tablet 1,000 mg, 1,000 mg, Oral, 3 times per day diazePAM (VALIUM) tablet 10 mg, 10 mg, Oral, TID sodium chloride flush 0.9 % injection 5-40 mL, 5-40 mL, IntraVENous, 2 times per day sodium chloride flush 0.9 % injection 5-40 mL, 5-40 mL, IntraVENous, PRN 0.9 % sodium chloride infusion, 25 mL, IntraVENous, PRN ondansetron (ZOFRAN-ODT) disintegrating tablet 4 mg, 4 mg, Oral, Q8H PRN OR ondansetron (ZOFRAN) injection 4 mg, 4 mg, IntraVENous, Q6H PRN miconazole (MICOTIN) 2 % powder, , Topical, BID Physical Exam Constitutional: General: He is not in acute distress. Appearance: He is well-developed. He is not diaphoretic. HENT: Head: Normocephalic and atraumatic. Right Ear: External ear normal. Left Ear: External ear normal. Eyes: Conjunctiva/sclera: Conjunctivae normal. Pupils: Pupils are equal, round, and reactive to light. Neck: Comments: C collar in place Cardiovascular: Rate and Rhythm: Normal rate and regular rhythm. Heart sounds: Normal heart sounds. No murmur heard. Pulmonary: Effort: Pulmonary effort is normal. No respiratory distress. Breath sounds: Normal breath sounds. No wheezing. Chest: Chest wall: No tenderness. Abdominal: General: Bowel sounds are normal. There is no distension. Palpations: Abdomen is soft. Tenderness: There is no abdominal tenderness. Musculoskeletal: General: No tenderness. Normal range of motion. Cervical back: Normal range of motion. Skin: General: Skin is warm and dry. Findings: No rash. Neurological: Mental Status: He is alert. Mental status is at baseline. Sensory: No sensory deficit. Labs and Imaging: No results found for this or any previous visit (from the past 24 hour(s)). Lab Results Component Value Date TSH 1.400 05/17/2021 Lab Results Component Value Date [id number] 05/17/2021 Lab Results Component Value Date [id number] 45 05/17/2021 Reviewed: active problem list, medication list, allergies, notes from last encounter, lab results, imaging Associated attestation - Anusha Andrews MD - 05/21/2021 7:13 AM EDT ATTENDING ATTESTATION: I saw and independently examined Mr. Shine on 05/20/2021. The case was discussed on rounds with the resident, Dr. Aguilar.I agree with the history , examination, and medical decision making as outlined. Mr. 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 He has been on phenobarbital since then. Pharmacy working to clarify medication list as the medication list that his home health agency has is outdated by several years although they state that they do not manage his medications. He reports his pain as 10/10 in his neck today. Notes that shoulder pain has improved. Fall/Fracture-Plan for discharge to skilled rehab based on therapy recs. Continue to assess pain on this current regimen. Polypharmacy -Phenobarbital-Agree with monitoring levels. -Diazepam-Appears to take this scheduled at home. -Testosterone. Unsure why he takes this. Next dose due on 05/22. -Cyclobenzaprine discontinued as he has not taken this in over 24 hours and he is already on several sedating medications. -At discharge from skilled rehab, an updated list should be provided to his home health agency. 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 Please see resident note for further recommendations. During this encounter, I spent over 51% of the total encounter time of 50 minutes counseling or coordinating care and provided discussion regarding work-up, test results, treatment options and associated risks and benefits for the problems detailed above, prognosis, expected disease course, and rehabilitation care needs as indicated. Occupational Therapy Facility/Department: [facility] Daily Treatment Note Pt. Is currently OOR. OT will re-attempt to see pt. As schedule permits. NAME: Bear Shine : 1950 Date of Service: 05/20/2021 BY[facility] Quezada Physical Therapy Facility/Department: [facility] Daily Treatment Note NAME: Bear Shine : 1950 Date of Service: 05/20/2021 Discharge Recommendations: (facility based therapy) PT Equipment Recommendations Equipment Needed: No Assessment Body structures, Functions, Activity limitations: Decreased functional mobility ;Decreased ADL status;Decreased endurance;Decreased strength;Decreased balance;Increased pain REQUIRES PT FOLLOW UP: Yes Activity Tolerance Activity Tolerance: Patient limited by pain;Patient limited by cognitive status Patient Diagnosis(es): There were no encounter diagnoses. has a past medical history of Anxiety, COPD (chronic obstructive pulmonary disease) (HCC), HTN (hypertension), Hyperlipidemia, PTSD (post-traumatic stress disorder), and Seizure disorder ([facility]). has a past surgical history that includes Cholecystectomy; Appendectomy; TURP; and Cardiac catheterization. Restrictions Restrictions/Precautions Restrictions/Precautions: Fall Risk,Weight Bearing Required Braces or Orthoses?: Yes Upper Extremity Weight Bearing Restrictions Left Upper Extremity Weight Bearing: Non Weight Bearing Required Braces or Orthoses Cervical: c-collar Left Upper Extremity Brace/Splint: Sling Left Upper Extremity Brace/Splint: comfort Subjective General Chart Reviewed: Yes Family / Caregiver Present: No Subjective Subjective: Pt is supine in bed, c-collar on, no sling on left UE. Complained of pain when given assist to sitting . General Comment Comments: He states he is getting out of here and going home today, but per nurse that is not happening. Pain Screening Patient Currently in Pain: Yes Vital Signs Patient Currently in Pain: Yes Orientation Orientation Overall Orientation Status: Within Functional Limits (poor with details.) Cognition Objective Bed mobility Rolling to Left: Minimal assistance Supine to Sit: Maximum assistance Scooting: Moderate assistance Transfers Sit to Stand: Maximum Assistance;2 Person Assistance Stand to sit: Maximum Assistance;2 Person Assistance Bed to Chair: Maximum assistance;2 Person Assistance Comment: severe retrograde balance with transfer to chair. Ambulation Ambulation?: Yes More Ambulation?: No Ambulation 1 Surface: level tile Device: Rolling Walker Other Apparatus: O2 Assistance: Maximum assistance;2 Person assistance Quality of Gait: retrograde balance, high risk for falls. Gait Deviations: Slow Emmie;Decreased step length;Decreased step height Distance: 4' Stairs/Curb Stairs?: No AROM RLE (degrees) RLE AROM: WFL AROM LLE (degrees) LLE AROM : WFL AROM RUE (degrees) RUE AROM : WFL AROM LUE (degrees) LUE AROM : WFL Strength RLE Comment: 4/5 observed through functional transfer to chair Strength LLE Comment: 4/5 observed through functional transfer to the chair G-Code OutComes Score AM-[facility] Score -[facility] Inpatient Mobility Raw Score : 7 (05/20/21824) -[facility] Inpatient T-Scale Score : 26.42 (05/20/21824) Mobility Inpatient CMS 0-100% Score: 92.36 (05/20/21824) Mobility Inpatient CMS G-Code Modifier : CM (05/20/21824) Goals Short term goals Time Frame for Short term goals: 2 weeks Short term goal 1: Pt to perform bed mobility with modified independence NOT MET Short term goal 2: Pt to perform sit to stand transfers with modified independence NOT MET Short term goal 3: Pt to ambulate with least restrictive device x 50' with modified independence NOT MET Patient Goals Patient goals : to become more mobile Plan Plan Times per week: 4-5 Plan weeks: 2 Current Treatment Recommendations: Strengthening,Transfer Training,Endurance Training,Balance Training,Gait Training,Functional Mobility Training,Stair training,Safety Education & Training Safety Devices Type of devices: All fall risk precautions in place,Patient at risk for falls,Call light within reach,Nurse notified,Left in chair (no bed alarm on, no chair alarm used) Restraints Initially in place: No Therapy Time Individual Concurrent Group Co-treatment Time In 08 Time Out 0829 Minutes 19 Timed Code Treatment Minutes: 19 Minutes Luz Maria Jaramillo PT Daily Trauma Progress Note NANDO 05/20/2021 6:04 AM Admit Date: 05/16/2021 Post Trauma Day 4 Fall SH HISTORY OF TRAUMATIC EVENT: 71 y.o. male status post fall. The incident happened around 05/16 on 03:00 at home. When the event happened the patient was with his dog Michaelle and lost balance and fell and hit his dog's cage. Denies LOC. INJURIES: - C1 lateral mass and posterior arch fx PROCEDURES: None INCIDENTAL FINDINGS: Carotid stenosis CHIEF COMPLAINT: Neck pain PREVIOUS 24 HOUR EVENTS: -Defers to go to rehab facility, wants to go home with [facility] -Urinary retention, straight cath X1 overnight last night Consults: IP CONSULT TO ORTHOPEDIC SURGERY IP CONSULT TO GERIATRICS IP CONSULT TO PALLIATIVE CARE MEDICATIONS: Current Facility-Administered Medications Medication Dose Route Frequency Provider Last Rate Last Admin isosorbide dinitrate (ISORDIL) tablet 30 mg 30 mg Oral Daily June Mcmahon APRN - [employer] 30 mg at 05/19/21 0938 amLODIPine (NORVASC) tablet 5 mg 5 mg Oral Daily June 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 polyethylene glycol (GLYCOLAX) packet 17 g 17 g Oral Daily June 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 17 g at 05/19/21 1311 senna (SENOKOT) tablet 8.6 mg 1 tablet Oral Nightly June Mcmahon APRN - [employer] 8.6 mg at 05/19/212115 tamsulosin (FLOMAX) capsule 0.4 mg 0.4 mg Oral Daily June Mcmahon APRN - [employer] 0.4 mg at 05/19/21 1314 oxyCODONE (ROXICODONE) immediate release tablet 10 mg 10 mg Oral Q4H PRN Bienvenido Mcleod MD 10 mg at 05/20/21 0600 traZODone (DESYREL) tablet 100 mg 100 mg Oral Nightly Bienvenido Mcleod MD 100 mg at 05/19/212115 cyclobenzaprine (FLEXERIL) tablet 5 mg 5 mg Oral TID PRN Bienvenido Mcleod MD 5 mg at 05/19/21937 lidocaine 4 % external patch 1 patch 1 patch TransDERmal Daily Bienvenido Mcleod MD 1 patch at 05/19/21 0940 enoxaparin (LOVENOX) injection 30 mg 30 mg SubCUTAneous BID Bienvenido Mcleod MD 30 mg at 05/19/212116 clopidogrel (PLAVIX) tablet 75 mg 75 mg Oral Daily Bienvenido Mcleod MD 75 mg at 05/19/21937 labetalol (NORMODYNE;TRANDATE) injection 10 mg 10 mg IntraVENous Q4H PRN Bienvenido Mcleod MD 10 mg at 05/19/21 0536 hydrALAZINE (APRESOLINE) injection 10 mg 10 mg IntraVENous Q4H PRN Bienvenido Mcleod MD docusate sodium (COLACE) capsule 100 mg 100 mg Oral BID Bienvenido Mcleod MD 100 mg at 05/19/212115 melatonin tablet 3 mg 3 mg Oral Nightly Bienvenido Mcleod MD 3 mg at 05/19/212115 PHENobarbital (LUMINAL) tablet 32.4 mg 32.4 mg Oral TID Bienvenido Mcleod MD 32.4 mg at 05/19/212116 PHENobarbital (LUMINAL) tablet 64.8 mg 64.8 mg Oral BID Bienvenido Mcleod MD 64.8 mg at 05/19/212115 acetaminophen (TYLENOL) tablet 1,000 mg 1,000 mg Oral 3 times per day Bienvenido Mcleod MD 1,000 mg at 05/20/21 0600 diazePAM (VALIUM) tablet 10 mg 10 mg Oral TID Bienvenido Mcleod MD 10 mg at 05/19/212115 sodium chloride flush 0.9 % injection 5-40 mL 5-40 mL IntraVENous 2 times per day Bienvenido Mcleod MD 10 mL at 05/19/212115 sodium chloride flush 0.9 % injection 5-40 mL 5-40 mL IntraVENous PRN Bienvenido Mcleod MD 0.9 % sodium chloride infusion 25 mL IntraVENous PRN Bienvenido Mcleod MD ondansetron (ZOFRAN-ODT) disintegrating tablet 4 mg 4 mg Oral Q8H PRN Bienvenido Mcleod MD Or ondansetron (ZOFRAN) injection 4 mg 4 mg IntraVENous Q6H PRN Bienvenido Mcleod MD miconazole (MICOTIN) 2 % powder Topical BID Bienvenido Mcleod MD Given at 05/20/21 0028 ARE THERE PERTINENT UPDATES TO PAST,FAMILY, OR SOCIAL HISTORY?: No Subjective: States he is feeling fine, pain controlled. Does not want to go to rehab. He receives HHC with an aide daily and a nurse once a week. He states he has also received PT in the past and would like to go home with these services again provided by the [facility]. Review of Systems Constitutional: Positive for activity change. HENT: Negative. Respiratory: Negative. Cardiovascular: Negative. Gastrointestinal: Positive for constipation. Genitourinary: Negative. Musculoskeletal: Positive for arthralgias, neck pain and neck stiffness. Chronic low back pain Skin: Positive for wound. Neurological: Negative. Psychiatric/Behavioral: Negative. Negative for confusion. All other systems reviewed and are negative. PHQ In the last 2 weeks have you had: 1. Little interest or pleasure in doing things No 2. Been feeling down, depressed, or hopeless No If greater then 0, place CLP consult Date PHQ completed: Objective: Patient Vitals for the past 24 hrs: BP Temp Temp src Pulse Resp SpO2 05/20/21 0510 (!) 140/75 98.1 F (36.7 C) Temporal 57 18 97 % 05/20/21 0109 127/66 98.9 F (37.2 C) Temporal 55 14 94 % 05/19/21 2122 (!) 152/75 98.3 F (36.8 C) Temporal 56 16 97 % 05/19/21 1719 108/62 98.6 F (37 C) Temporal 57 14 95 % 05/19/21 1309 (!) 115/58 98.3 F (36.8 C) Temporal 59 18 97 % 05/19/21 0949 (!) 147/83 98.5 F (36.9 C) Temporal 60 18 98 % 05/19/21 0652 121/66 98.8 F (37.1 C) Temporal 59 18 97 % Date 05/20/21 0000 - 05/20/21 2359 Shift [id number] 8524-8422 0210-1254 24 Hour Total INTAKE Shift Total(mL/kg) OUTPUT Urine(mL/kg/hr) 800 800 Shift Total(mL/kg) 800(8.2) 800(8.2) Weight (kg) 97.1 97.1 97.1 97.1 Last BM: 05/16 Diet: Regular CVP: No Chest Tubes: R: No L: No PHYSICAL: Physical Exam Vitals reviewed. Constitutional: Appearance: Normal appearance. HENT: Head: Normocephalic. Comments: Abrasion to forehead C collar in place Right Ear: External ear normal. Left Ear: External ear normal. Nose: Nose normal. Mouth/Throat: Mouth: Mucous membranes are moist. Pharynx: Oropharynx is clear. Eyes: Conjunctiva/sclera: Conjunctivae normal. Neck: Comments: Elgin collar in place Cardiovascular: Rate and Rhythm: Normal rate. Pulses: Normal pulses. Pulmonary: Effort: Pulmonary effort is normal. Abdominal: General: Abdomen is flat. Palpations: Abdomen is soft. Tenderness: There is no abdominal tenderness. Genitourinary: Comments: Urinary retention per nursing staff Straight cath X1 overnight Musculoskeletal: General: Normal range of motion. Right lower leg: No edema. Left lower leg: No edema. Skin: General: Skin is warm and dry. Capillary Refill: Capillary refill takes 2 to 3 seconds. Neurological: General: No focal deficit present. Mental Status: He is alert and oriented to person, place, and time. Mental status is at baseline. Psychiatric: Mood and Affect: Mood normal. Behavior: Behavior normal. Sutures or tammy? No O2: 3 L LA, states he has home O2 that he used prn / / / Data Review Data CBC with Differential: Lab Results Component Value Date WBC 7.7 05/19/2021 RBC 4.99 05/19/2021 HGB 16.1 05/19/2021 HCT 49.9 05/19/2021 PLT 135 05/19/2021 CMP: Lab Results Component Value Date NA 135 05/19/2021 K 4.2 05/19/2021 CL 97 05/19/2021 CO2 35 05/19/2021 BUN 11 05/19/2021 CREATININE 1.06 05/19/2021 GLUCOSE 80 05/19/2021 CALCIUM 8.6 05/19/2021 BMP: Hepatic Function Panel:Ionized Calcium: Lab Results Component Value Date IONCA 4.10 08/18/2018 Magnesium: Lab Results Component Value Date MG 2.1 08/19/2018 Phosphorus: Lab Results Component Value Date PHOS 2.6 08/19/2018 PT/INR: No results found for: PROTIME, INR PTT: No results found for: APTT[APTT Last 3 Troponin: No results found for: TROPONINI Urine Culture: No components found for: CURINE Blood Culture: No components found for: CBLOOD, CFUNGUSBL Blood Culture from Central Line: No components found for: CBLOODLN Stool Culture: No components found for: CSTOOL Sputum Culture: No components found for: CSPUTUM Sputum Culture for AFB: No components found for: CAFBSM Wound Culture: Na Radiology: XR CERVICAL SPINE (2-3 VIEWS) Result Date: 05/18/2021 Patient Name: BEAR SHINE Diagnostic Radiology ACCESSION EXAM DATE/TIME PROCEDURE ORDERING PROVIDER [id number] 05/17/2021 09:44 EST CR Spine Cervical 2 or 3 MD JAMIL, NERISSA Views CPT code 78880 Reason For Exam (CR Spine Cervical 2 or 3 Views) AP/Lateral in collar C1 Fx Report CERVICAL SPINE: CLINICAL INDICATION: C1 fracture TECHNIQUE: AP, lateral nd open mouth plus flexion and extension views COMPARISON: None FINDINGS: Exam quality: The study is limited due to the patient's body habitus, overlying radiopaque structures and inability to optimally position the patient. . The C1 fracture is not readily identified on these conventional radiographs. There is no malalignment at the articulation between C1 and the occiput and C1 and C2. There is limited visualization below C4 on the lateral views. Marked anterior spurring is noted at C2-C4. Disc space narrowing is noted at C2-C3 and C3-C4. The retropharyngeal and retrotracheal soft tissues are unremarkable. IMPRESSION: C1 fractures are not appreciable on these conventional radiographs. Anterior spurring about the upper cervical vertebrae and disc space narrowing. Report Dictated on --- Final --- Dictated: 05/18/2021 5:25 am Dictating Physician: MD NIELSON JEFFREY Signed Date and Time: 05/18/2021 5:31 am Signed by: MD NIELSON JEFFREY Transcribed Date and Time: 05/18/2021 5:25 XR SHOULDER LEFT 1 VW Result Date: 05/17/2021 Patient Name: BEAR SHINE Diagnostic Radiology ACCESSION EXAM DATE/TIME PROCEDURE ORDERING PROVIDER [id number] 05/17/2021 02:25 EST CR Shoulder 1 View Left MD NEGRON BLAKE CPT code 89204 Reason For Exam (CR Shoulder 1 View Left) Axillary L Shoulder Report LEFT SHOULDER: CLINICAL INDICATION: Fall injury with pain. TECHNIQUE: Axillary view only COMPARISON: None. FINDINGS: There is some cortical irregularity about the greater tuberosity. No other fracture or dislocation is identified. IMPRESSION: Limited axillary view demonstrate some cortical irregularity about the greater tuberosity but no definite fracture or dislocation. Report Dictated on --- Final --- Dictated: 05/17/2021 3:51 am Dictating Physician: MD NIELSON JEFFREY Signed Date and Time: 05/17/2021 3:53 am Signed by: MD NIELSON JEFFREY Transcribed Date and Time: 05/17/2021 3:51 CT HEAD WO CONTRAST Result Date: 05/17/2021 Patient Name: BEAR SHINE Computed Tomography ACCESSION EXAM DATE/TIME PROCEDURE ORDERING PROVIDER [id number] 05/17/2021 05:[address] Head or Brain w/o [id number] -PIA, MIGUEL ANGEL Contrast CPT code 07530 Reason For Exam (CT Head or Brain w/o Contrast) repeat CT head, fall on blood thinners, forehead abrasion, known C1 fx. No earlier than 04:[address] HEAD: CLINICAL INDICATION: Trauma with known C1 fracture with previous images from [facility] TECHNIQUE: Transaxial CT sequence performed through the head with 3 mm reconstruction. Sagittal and Coronal reconstruction images included. Dose reduction employed with automated exposure control. COMPARISON: None FINDINGS: Ventricles and Extra-axial spaces: Normal in size and morphology for the patient's age. No abnormal extracerebral collection identified. Cerebral and cerebellar parenchyma: No regions of abnormal increased or decreased attenuation, mass lesion or evidence of acute infarct. Hemorrhage: None Brainstem: Normal Visualized Paranasal sinuses: Normal. Mastoid air cells: Normal Visualized Orbits: Normal Calvarium and skull base: There is no CT evidence of fracture of the calvarium. A comminuted fracture of the left lateral mass of C1 extends into the posterior lamina. There is a triangular-shaped fragment measuring up to 1.3 cm projecting into the left side of the spinal canal IMPRESSION: 1. No acute intracranial abnormality 2. C1 fracture on the left. Computed Tomography Report Report Dictated on --- Final --- Dictated: 05/17/2021 6:17 am Dictating Physician: MD NIELSON JEFFREY Signed Date and Time: 05/17/2021 6:21 am Signed by: MD NIELSON JEFFREY Transcribed Date and Time: 05/17/2021 6:18 CTA NECK W WO CONTRAST Result Date: 05/17/2021 [id number] ACCESSION EXAM DATE/TIME PROCEDURE ORDERING PROVIDER [id number] 05/17/2021 05:31 EST CTA Neck w/ + w/o MD JAMIL, NERISSA Contrast CPT code 97589 Q9967 Reason For Exam (CTA Neck w/ + w/o Contrast) C1 Fracture Report CT ANGIOGRAPHY NECK: CLINICAL INDICATION: Trauma with known C1 fracture with previous images from [facility] TECHNIQUE: Multidetector spiral transaxial sequence was performed from the upper mediastinum through the skull base during dynamic intravenous infusion of 75 mL of nonionic contrast media, injected at a high flow rate following a heel cementer machine study. Images were reconstructed with soft tissue and bone algorithm at 0.5 mm transaxial destruction. Multiplanar and 3D MIP reconstruction was performed concurrently on an independent viewing workstation with 1 mm reconstruction. Measurement of carotid stenosis is a ratio based on conventional angiographic data from the NASCET trials with the smallest caliber of the internal carotid as the numerator and normal post-stenotic internal carotid caliber as denominator. Dose reduction was employed with automated exposure control. COMPARISON: Outside CT examination FINDINGS: Aortic arch and great vessel origins: Normal. Right common and external carotid: Normal. Right internal carotid: Minimal stenosis near the origin in the range of less than 30 percent. Left common and external carotid: Normal. Left internal carotid: Minimal stenosis near the origin in the range of less than 30 percent. Vertebral arteries: Patent flow is noted within both vertebral arteries. The left distal vertebral artery courses directly adjacent to the comminuted fracture of the left lateral mass of C1. The vessel enters the spinal canal at C1 and remains patent into the basilar artery. No focal stenotic segment or dissection is identified. Neck: No cystic or solid mass within the deep or superficial spaces of the neck. Unremarkable salivary glands and thyroid. No enlarged lymph nodes. No abnormality within the airways. Unremarkable lung apices. Computed Tomography Report Comminuted fracture the left lateral mass of C1 is noted as identified on CT head and prior CT cervical spine. There is also anterior spurring with flowing ossification about the vertebrae from C3 through C7. IMPRESSION: 1. Patent left vertebral artery without evidence of traumatic stenosis or dissection near the site of the C1 fracture 2. Patent right vertebral artery along with patent carotid arteries without hemodynamically significant internal carotid artery stenosis 3. No intracranial arterial abnormality. Report Dictated on --- Final --- Dictated: 05/17/2021 6:22 am Dictating Physician: MD NIELSON JEFFREY Signed Date and Time: 05/17/2021 6:35 am Signed by: MD NIELSON JEFFREY Transcribed Date and Time: 05/17/2021 6:22 CT THORACIC SPINE WO CONTRAST Result Date: 05/17/2021 Patient Name: BEAR SHINE Computed Tomography ACCESSION EXAM DATE/TIME PROCEDURE ORDERING PROVIDER [id number] 05/17/2021 05:[address] Spine Thoracic w/o MD JAMIL, NERISSA Contrast CPT code 20598 Reason For Exam (CT Spine Thoracic w/o Contrast) Back pain - Trauma with DISH Report CT THORACIC AND LUMBAR SPINE : CLINICAL INDICATION: Trauma with back pain TECHNIQUE: Transaxial sequence through the thoracic and separately through the lumbar spine with 1 mm reconstruction interval. Multiplanar reconstruction imaging was performed. COMPARISON: None FINDINGS: The vertebrae and joints: No wedge fracture or compression deformity of the thoracic and lumbar vertebral bodies is noted. There are large anterior marginal osteophytes bridging the vertebrae from T3 through L2. There is some sclerosis along the anterior aspect of these vertebrae as well. No other lytic bone lesion is identified. The facet joints demonstrate minor hypertrophic change at L4-L5 and L5-S1. Intervertebral disc spaces and spinal canal: Generalized disc space narrowing is noted throughout the thoracic levels. Lumbar disc levels demonstrate minor narrowing at L4-L5. There is no widening of the disc spaces. There is minor bony foraminal spinal stenosis at L4-L5 without other bony spinal stenosis. Soft tissues: Visualized portions of the lungs demonstrate dependent atelectasis. There is no consolidation. Cardiac chambers are relatively large. There is coronary artery calcification. No mediastinal or hilar mass is noted on this noncontrast study. Adrenals, pancreas and kidneys demonstrate no abnormality. There is dense atherosclerotic calcified abdominal aorta. No enlarged retroperitoneal lymph nodes are noted. IMPRESSION: 1. No thoracic or lumbar fracture identified 2. Flowing ossification about the anterior aspect of the vertebrae from T3-L2 corresponding to diffuse idiopathic skeletal hyperostosis. 3. Minor bony spinal stenosis at L4-L5 Computed Tomography Report Report Dictated on --- Final --- Dictated: 05/17/2021 6:36 am Dictating Physician: MD NIELSON JEFFREY Signed Date and Time: 05/17/2021 6:42 am Signed by: MD NIELSON JEFFREY Transcribed Date and Time: 05/17/2021 6:36 CT LUMBAR SPINE WO CONTRAST Result Date: 05/17/2021 [id number]ography ACCESSION EXAM DATE/TIME PROCEDURE ORDERING PROVIDER [id number] 05/17/2021 05:[address] Spine Lumbar w/o MD NEGRON BLAKE Contrast CPT code 66076 Reason For Exam (CT Spine Lumbar w/o Contrast) Back Pain w/ DISH Report CT THORACIC AND LUMBAR SPINE : CLINICAL INDICATION: Trauma with back pain TECHNIQUE: Transaxial sequence through the thoracic and separately through the lumbar spine with 1 mm reconstruction interval. Multiplanar reconstruction imaging was performed. COMPARISON: None FINDINGS: The vertebrae and joints: No wedge fracture or compression deformity of the thoracic and lumbar vertebral bodies is noted. There are large anterior marginal osteophytes bridging the vertebrae from T3 through L2. There is some sclerosis along the anterior aspect of these vertebrae as well. No other lytic bone lesion is identified. The facet joints demonstrate minor hypertrophic change at L4-L5 and L5-S1. Intervertebral disc spaces and spinal canal: Generalized disc space narrowing is noted throughout the thoracic levels. Lumbar disc levels demonstrate minor narrowing at L4-L5. There is no widening of the disc spaces. There is minor bony foraminal spinal stenosis at L4-L5 without other bony spinal stenosis. Soft tissues: Visualized portions of the lungs demonstrate dependent atelectasis. There is no consolidation. Cardiac chambers are relatively large. There is coronary artery calcification. No mediastinal or hilar mass is noted on this noncontrast study. Adrenals, pancreas and kidneys demonstrate no abnormality. There is dense atherosclerotic calcified abdominal aorta. No enlarged retroperitoneal lymph nodes are noted. IMPRESSION: 1. No thoracic or lumbar fracture identified 2. Flowing ossification about the anterior aspect of the vertebrae from T3-L2 corresponding to diffuse idiopathic skeletal hyperostosis. 3. Minor bony spinal stenosis at L4-L5 Computed Tomography Report Report Dictated on --- Final --- Dictated: 05/17/2021 6:36 am Dictating Physician: MD NIELSON JEFFREY Signed Date and Time: 05/17/2021 6:42 am Signed by: MD NIELSON JEFFREY Transcribed Date and Time: 05/17/2021 6:36 XR PELVIS (1-2 VW) Result Date: 05/17/2021 Patient Name: BEAR SHINE Diagnostic Radiology ACCESSION EXAM DATE/TIME PROCEDURE ORDERING PROVIDER [id number] 05/17/2021 00:31 EST CR Pelvis 1 or 2 Views [id number] -MIGUEL ANGEL PALACIO CPT code 51866 Reason For Exam (CR Pelvis 1 or 2 Views) fall, trauma Report PELVIS: CLINICAL INDICATION: Fall injury with pain. TECHNIQUE: AP COMPARISON: None. FINDINGS: Exam quality: The study is limited due to rotation. There is no evidence for fracture or dislocation. The hips joints are unremarkable. The sacroiliac joints are normal. No bone lesion is identified. Surgical clips overlie the soft tissues about the right-sided pelvis.. IMPRESSION: Limited study. No acute bony abnormality. Report Dictated on --- Final --- Dictated: 05/17/2021 1:46 am Dictating Physician: MD NIELSON JEFFREY Signed Date and Time: 05/17/2021 1:47 am Signed by: MD NIELSON JEFFREY Transcribed Date and Time: 05/17/2021 1:46 Patient Active Problem List Diagnosis Cervical compression fracture, initial encounter ([facility]) Fungal infection of the groin Insomnia PTSD (post-traumatic stress disorder) Seizure (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) Trauma Urinary retention ASSESSMENT: 71 y/o M s/p mechanical fall at home. Found to have a C1 lateral mass fracture. PLAN: Neuro/Spine: - Ortho spine consulted - Remain in c-collar for 3 months, f/u in 10 days - Initial head CT read at [place] 05/16 20:22 as normal - Pain: PO tylenol 1g q8h shana, Valium, lidocaine patches, prn oxy - Home phenobarb PO - Home diazepam 10 mg PO TID - Start home trazodone 300mg qhs - Melatonin 3mg qhs - Consult palliative care - Delirium protocol HEENT: - C collar for 3 months Cardiovascular: - PRN labetalol/hydralazine - Home Isordil 30 mg qd PO - Hypertensive: start Norvasc 5mg daily - Home plavix Pulmonary: - IS - Cough and deep breathe -Oxygen protocol, wears Home O2 prn FEN/GI: - Regular diet - Bowel regimen - PRN zofran : - CrCl: 73 - daily BMP: DC - Remove castelan 05/19 - Start flomax - Urinary retention; Straight cath X 1 05/20 - Monitor urine output, bladder scan prn Heme: - DC daily labs ID: - No acute issues Endo: - No acute issues Lines/Devices: - PIV Prophylaxis: DVT: Lovenox 30 BID Has DVT PPX been started? Yes If no, why? na GI: NA Pressure Ulcer: None Musculoskeletal: - PT/OT rec FBT WB Status: RUE:wbat LUE: wbat RLE: wbat LLE: wbat Is the patient in restraints?: no Disposition: Continue H5 care, PT rec facility however patient wants to go home with [facility] services through the [place]. Pain control, monitor urine output. Straight cath/bladder scan prn. Cervical collar at all times until cleared by Ortho. Medically stable for discharge. Associated attestation - Natalia Molina MD - 05/21/2021 6:40 AM EDT ~~~~~~~~~~~~~~~~~~~~~~~~~~~~~~~~~ ~~~~~~~~~~~~~~~~~~~~~~~~~~~~ ATTENDING ADDENDUM Active Diagnoses/Problems this Admission: Hospital Problems Last Modified POA Trauma 05/16/2021 Yes Urinary retention 05/17/2021 Yes Obesity (BMI 30-39.9) 05/20/2021 Yes I personally supervised the STREET LIGHT REPAIRER HELPER/SRIRAM in the evaluation and development of a treatment plan for this patient on the same day of service as above. I personally discussed the review of systems and interviewed the patient along with performing a physical examination. I reviewed the recent events, imaging, labs, vital signs. In addition, I discussed the patient's condition and treatment options with him/her when possible. I have also reviewed and agree with the past medical, family, and social history unless otherwise noted. All of the patient's questions were answered and family updated when appropriate and possible. A complete review of systems was obtained and is negative except as stated in HPI. Per Igne Rain APRN note C1 fx s/p mech fall - ortho spine --> c collar x 3 months - multimodal pain control Urinary retention - straight cath x 1 - flomax Restart home meds On home O2 DVT ppx OOB Dispo pending Natalia Molina MD Division of Trauma Department of Surgery [facility] Pager: [phone] ~~~~~~~~~~~~~~~~~~~~~~~~~~~~~~~~~ ~~~~~~~~~~~~~~~~~~~~~~~~~~~~ This note may have been dictated using [facility] Edition 2.6 and/or Quench Voice Recognition Feature. The document was proofread; however, unrecognized voice recognition turkey picker errors may be present. Pt castelan catheter removed at 12pm. Patient not voiding. Pt bladder scanned for 290ml. Dr Malgorzata baltazar Physical Therapy Chart reviewed this date. RN cleared for therapy. PT attempted. Patient supine in bed with HOB slightly elevated, bed alarm and c-collar donned. Pt states he has been getting up just fine on his own and does not need physical therapy. CERAMIC COATER MACHINE educated pt on benefits of therapy and provided max encouragement and numerous options for therapy particpation. Pt continued to decline therapy services this date. PT will continue to follow. Will re-attempt another date/time as schedule allows. Luz Maria Head PTA Daily Trauma Progress Note NANDO 05/19/2021 6:30 AM Admit Date: 05/16/2021 Post Trauma Day 3 Fall SH HISTORY OF TRAUMATIC EVENT: 71 y.o. male status post fall. The incident happened around 05/16 on 03:00 at home. When the event happened the patient was with his dog Michaelle and lost balance and fell and hit his dog's cage. Denies LOC. INJURIES: - C1 lateral mass and posterior arch fx PROCEDURES: None INCIDENTAL FINDINGS: Carotid stenosis CHIEF COMPLAINT: Neck pain PREVIOUS 24 HOUR EVENTS: - Transferred to floor Consults: IP CONSULT TO ORTHOPEDIC SURGERY IP CONSULT TO GERIATRICS IP CONSULT TO PALLIATIVE CARE MEDICATIONS: Current Facility-Administered Medications Medication Dose Route Frequency Provider Last Rate Last Admin oxyCODONE (ROXICODONE) immediate release tablet 10 mg 10 mg Oral Q4H PRN Bienvenido Mcleod MD 10 mg at 05/19/21 0540 traZODone (DESYREL) tablet 100 mg 100 mg Oral Nightly Bienvenido Mcleod MD 100 mg at 05/18/212030 cyclobenzaprine (FLEXERIL) tablet 5 mg 5 mg Oral TID PRN Bienvenido Mcleod MD 5 mg at 05/18/21 1739 lidocaine 4 % external patch 1 patch 1 patch TransDERmal Daily Bienvenido Mcleod MD 1 patch at 05/18/21 1310 enoxaparin (LOVENOX) injection 30 mg 30 mg SubCUTAneous BID Bienvenido Mcleod MD 30 mg at 05/18/212031 clopidogrel (PLAVIX) tablet 75 mg 75 mg Oral Daily Bienvenido Mcleod MD labetalol (NORMODYNE;TRANDATE) injection 10 mg 10 mg IntraVENous Q4H PRN Bienvenido Mcleod MD 10 mg at 05/19/21 0536 hydrALAZINE (APRESOLINE) injection 10 mg 10 mg IntraVENous Q4H PRN Bienvenido Mcleod MD docusate sodium (COLACE) capsule 100 mg 100 mg Oral BID Bienvenido Mcleod MD 100 mg at 05/18/212031 melatonin tablet 3 mg 3 mg Oral Nightly Bienvenido Mcleod MD 3 mg at 05/18/212031 isosorbide dinitrate (ISORDIL) tablet 30 mg 30 mg Oral Daily Bienvenido Mcleod MD 30 mg at 05/18/21 0741 PHENobarbital (LUMINAL) tablet 32.4 mg 32.4 mg Oral TID Bienvenido Mcleod MD 32.4 mg at 05/18/212033 PHENobarbital (LUMINAL) tablet 64.8 mg 64.8 mg Oral BID Bienvenido Mcleod MD 64.8 mg at 05/18/212031 acetaminophen (TYLENOL) tablet 1,000 mg 1,000 mg Oral 3 times per day Bienvenido Mcleod MD 1,000 mg at 05/19/2140 diazePAM (VALIUM) tablet 10 mg 10 mg Oral TID Bienvenido Mcleod MD 10 mg at 05/18/212031 sodium chloride flush 0.9 % injection 5-40 mL 5-40 mL IntraVENous 2 times per day Bienvenido Mcleod MD 10 mL at 05/18/212033 sodium chloride flush 0.9 % injection 5-40 mL 5-40 mL IntraVENous PRN Bienvenido Mcleod MD 0.9 % sodium chloride infusion 25 mL IntraVENous PRN Bienvenido Mcleod MD ondansetron (ZOFRAN-ODT) disintegrating tablet 4 mg 4 mg Oral Q8H PRN Bienvenido Mcleod MD Or ondansetron (ZOFRAN) injection 4 mg 4 mg IntraVENous Q6H PRN Bienvenido Mcleod MD miconazole (MICOTIN) 2 % powder Topical BID Bienvenido Mcleod MD Given at 05/18/212031 ARE THERE PERTINENT UPDATES TO PAST,FAMILY, OR SOCIAL HISTORY?: No Subjective: States he is feeling fine, pain controlled. Does not want to go to rehab, has help from his brother at home and receives therapy in house twice weekly through the [place]. Review of Systems Constitutional: Positive for activity change. HENT: Negative. Respiratory: Negative. Cardiovascular: Negative. Gastrointestinal: Negative. Genitourinary: Negative. Musculoskeletal: Positive for arthralgias, neck pain and neck stiffness. Skin: Negative. Neurological: Negative. Psychiatric/Behavioral: Negative. All other systems reviewed and are negative. PHQ In the last 2 weeks have you had: Little interest or pleasure in doing things No Been feeling down, depressed, or hopeless No If greater then 0, place CLP consult Date PHQ completed: Objective: Patient Vitals for the past 24 hrs: BP Temp Temp src Pulse Resp SpO2 05/19/21 0510 (!) 170/91 98.3 F (36.8 C) Temporal 66 18 98 % 05/18/21 2325 (!) 158/78 98.9 F (37.2 C) Temporal 58 18 99 % 05/18/21 2300 138/77 -- -- 59 10 100 % 05/18/21 2200 (!) 148/75 -- -- 56 11 100 % 05/18/21 2100 (!) 150/68 -- -- 57 11 100 % 05/18/21 2000 (!) 149/70 98.7 F (37.1 C) Temporal 56 11 100 % 05/18/21 1900 (!) 147/78 -- -- 55 8 100 % 05/18/21 1800 (!) 153/77 -- -- 52 10 -- 05/18/21 1700 (!) 149/74 -- -- 53 11 100 % 05/18/21 1600 (!) 148/78 98.2 F (36.8 C) Temporal 55 11 100 % 05/18/21 1500 137/81 -- -- 59 9 -- 05/18/21 1400 125/64 -- -- 53 11 100 % 05/18/21 1300 124/67 -- -- 55 10 100 % 05/18/21 1200 (!) 140/80 98.3 F (36.8 C) Temporal 63 8 99 % 05/18/21 1100 121/69 -- -- 56 10 99 % 05/18/21 1000 124/73 -- -- 57 11 99 % 05/18/21 0900 126/75 -- -- 62 12 99 % 05/18/21 0800 134/76 98.2 F (36.8 C) Temporal 63 8 99 % 05/18/21 0741 -- 98.3 F (36.8 C) Temporal -- -- -- 05/18/21 0700 (!) 148/114 -- -- 61 27 100 % Last BM: 05/16 Diet: Regular CVP: No Chest Tubes: R: No L: No PHYSICAL: Physical Exam Vitals reviewed. HENT: Head: Comments: Abrasion to forehead C collar in place Nose: Nose normal. Mouth/Throat: Pharynx: Oropharynx is clear. Eyes: Extraocular Movements: Extraocular movements intact. Pupils: Pupils are equal, round, and reactive to light. Cardiovascular: Rate and Rhythm: Normal rate and regular rhythm. Pulses: Normal pulses. Pulmonary: Effort: Pulmonary effort is normal. Abdominal: General: Abdomen is flat. Palpations: Abdomen is soft. Tenderness: There is no abdominal tenderness. Musculoskeletal: Right lower leg: No edema. Left lower leg: No edema. Skin: General: Skin is warm and dry. Neurological: Mental Status: He is alert and oriented to person, place, and time. Comments: Mild confusion Sutures or tammy? No O2: NC / / / Data Review Data CBC with Differential: Lab Results Component Value Date WBC 7.7 05/19/2021 RBC 4.99 05/19/2021 HGB 16.1 05/19/2021 HCT 49.9 05/19/2021 PLT 135 05/19/2021 CMP: Lab Results Component Value Date NA 136 05/18/2021 K 4.3 05/18/2021 CL 103 05/18/2021 CO2 31 05/18/2021 BUN 14 05/18/2021 CREATININE 1.03 05/18/2021 GLUCOSE 94 05/18/2021 CALCIUM 8.6 05/18/2021 BMP: Hepatic Function Panel:Ionized Calcium: Lab Results Component Value Date IONCA 4.10 08/18/2018 Magnesium: Lab Results Component Value Date MG 2.1 08/19/2018 Phosphorus: Lab Results Component Value Date PHOS 2.6 08/19/2018 PT/INR: No results found for: PROTIME, INR PTT: No results found for: APTT[APTT Last 3 Troponin: No results found for: TROPONINI Urine Culture: No components found for: CURINE Blood Culture: No components found for: CBLOOD, CFUNGUSBL Blood Culture from Central Line: No components found for: CBLOODLN Stool Culture: No components found for: CSTOOL Sputum Culture: No components found for: CSPUTUM Sputum Culture for AFB: No components found for: CAFBSM Wound Culture: Na Radiology: XR CERVICAL SPINE (2-3 VIEWS) Result Date: 05/18/2021 [id number] ACCESSION EXAM DATE/TIME PROCEDURE ORDERING PROVIDER [id number] 05/17/2021 09:44 EST CR Spine Cervical 2 or 3 MD JAMIL, NERISSA Views CPT code 04504 Reason For Exam (CR Spine Cervical 2 or 3 Views) AP/Lateral in collar C1 Fx Report CERVICAL SPINE: CLINICAL INDICATION: C1 fracture TECHNIQUE: AP, lateral nd open mouth plus flexion and extension views COMPARISON: None FINDINGS: Exam quality: The study is limited due to the patient's body habitus, overlying radiopaque structures and inability to optimally position the patient. . The C1 fracture is not readily identified on these conventional radiographs. There is no malalignment at the articulation between C1 and the occiput and C1 and C2. There is limited visualization below C4 on the lateral views. Marked anterior spurring is noted at C2-C4. Disc space narrowing is noted at C2-C3 and C3-C4. The retropharyngeal and retrotracheal soft tissues are unremarkable. IMPRESSION: C1 fractures are not appreciable on these conventional radiographs. Anterior spurring about the upper cervical vertebrae and disc space narrowing. Report Dictated on --- Final --- Dictated: 05/18/2021 5:25 am Dictating Physician: MD NIELSON JEFFREY Signed Date and Time: 05/18/2021 5:31 am Signed by: MD NIELSON JEFFREY Transcribed Date and Time: 05/18/2021 5:25 XR SHOULDER LEFT 1 VW Result Date: 05/17/2021 Patient Name: BEAR SHINE Diagnostic Radiology ACCESSION EXAM DATE/TIME PROCEDURE ORDERING PROVIDER [id number] 05/17/2021 02:25 EST CR Shoulder 1 View Left MD NEGRON BLAKE CPT code 61619 Reason For Exam (CR Shoulder 1 View Left) Axillary L Shoulder Report LEFT SHOULDER: CLINICAL INDICATION: Fall injury with pain. TECHNIQUE: Axillary view only COMPARISON: None. FINDINGS: There is some cortical irregularity about the greater tuberosity. No other fracture or dislocation is identified. IMPRESSION: Limited axillary view demonstrate some cortical irregularity about the greater tuberosity but no definite fracture or dislocation. Report Dictated on --- Final --- Dictated: 05/17/2021 3:51 am Dictating Physician: MD NIELSON JEFFREY Signed Date and Time: 05/17/2021 3:53 am Signed by: MD NIELSON JEFFREY Transcribed Date and Time: 05/17/2021 3:51 CT HEAD WO CONTRAST Result Date: 05/17/2021 Patient Name: BEAR SHINE Computed Tomography ACCESSION EXAM DATE/TIME PROCEDURE ORDERING PROVIDER [id number] 05/17/2021 05:[address] Head or Brain w/o [id number] -PIA, MIGUEL ANGEL Contrast CPT code 69588 Reason For Exam (CT Head or Brain w/o Contrast) repeat CT head, fall on blood thinners, forehead abrasion, known C1 fx. No earlier than 04:[address] HEAD: CLINICAL INDICATION: Trauma with known C1 fracture with previous images from [facility] TECHNIQUE: Transaxial CT sequence performed through the head with 3 mm reconstruction. Sagittal and Coronal reconstruction images included. Dose reduction employed with automated exposure control. COMPARISON: None FINDINGS: Ventricles and Extra-axial spaces: Normal in size and morphology for the patient's age. No abnormal extracerebral collection identified. Cerebral and cerebellar parenchyma: No regions of abnormal increased or decreased attenuation, mass lesion or evidence of acute infarct. Hemorrhage: None Brainstem: Normal Visualized Paranasal sinuses: Normal. Mastoid air cells: Normal Visualized Orbits: Normal Calvarium and skull base: There is no CT evidence of fracture of the calvarium. A comminuted fracture of the left lateral mass of C1 extends into the posterior lamina. There is a triangular-shaped fragment measuring up to 1.3 cm projecting into the left side of the spinal canal IMPRESSION: 1. No acute intracranial abnormality 2. C1 fracture on the left. Computed Tomography Report Report Dictated on --- Final --- Dictated: 05/17/2021 6:17 am Dictating Physician: MD NIELSON JEFFREY Signed Date and Time: 05/17/2021 6:21 am Signed by: MD NIELSON JEFFREY Transcribed Date and Time: 05/17/2021 6:18 CTA NECK W WO CONTRAST Result Date: 05/17/2021 Patient Name: BEAR SHINE Computed Tomography ACCESSION EXAM DATE/TIME PROCEDURE ORDERING PROVIDER [id number] 05/17/2021 05:31 EST CTA Neck w/ + w/o MD JAMIL, NERISSA Contrast CPT code 85022 Q9967 Reason For Exam (CTA Neck w/ + w/o Contrast) C1 Fracture Report CT ANGIOGRAPHY NECK: CLINICAL INDICATION: Trauma with known C1 fracture with previous images from [facility] TECHNIQUE: Multidetector spiral transaxial sequence was performed from the upper mediastinum through the skull base during dynamic intravenous infusion of 75 mL of nonionic contrast media, injected at a high flow rate following a heel cementer machine study. Images were reconstructed with soft tissue and bone algorithm at 0.5 mm transaxial destruction. Multiplanar and 3D MIP reconstruction was performed concurrently on an independent viewing workstation with 1 mm reconstruction. Measurement of carotid stenosis is a ratio based on conventional angiographic data from the NASCET trials with the smallest caliber of the internal carotid as the numerator and normal post-stenotic internal carotid caliber as denominator. Dose reduction was employed with automated exposure control. COMPARISON: Outside CT examination FINDINGS: Aortic arch and great vessel origins: Normal. Right common and external carotid: Normal. Right internal carotid: Minimal stenosis near the origin in the range of less than 30 percent. Left common and external carotid: Normal. Left internal carotid: Minimal stenosis near the origin in the range of less than 30 percent. Vertebral arteries: Patent flow is noted within both vertebral arteries. The left distal vertebral artery courses directly adjacent to the comminuted fracture of the left lateral mass of C1. The vessel enters the spinal canal at C1 and remains patent into the basilar artery. No focal stenotic segment or dissection is identified. Neck: No cystic or solid mass within the deep or superficial spaces of the neck. Unremarkable salivary glands and thyroid. No enlarged lymph nodes. No abnormality within the airways. Unremarkable lung apices. Computed Tomography Report Comminuted fracture the left lateral mass of C1 is noted as identified on CT head and prior CT cervical spine. There is also anterior spurring with flowing ossification about the vertebrae from C3 through C7. IMPRESSION: 1. Patent left vertebral artery without evidence of traumatic stenosis or dissection near the site of the C1 fracture 2. Patent right vertebral artery along with patent carotid arteries without hemodynamically significant internal carotid artery stenosis 3. No intracranial arterial abnormality. Report Dictated on --- Final --- Dictated: 05/17/2021 6:22 am Dictating Physician: MD NIELSON JEFFREY Signed Date and Time: 05/17/2021 6:35 am Signed by: MD NIELSON JEFFREY Transcribed Date and Time: 05/17/2021 6:22 CT THORACIC SPINE WO CONTRAST Result Date: 05/17/2021 [id number] ACCESSION EXAM DATE/TIME PROCEDURE ORDERING PROVIDER [id number] 05/17/2021 05:[address] Spine Thoracic w/o MD JAMIL, NERISSA Contrast CPT code 63328 Reason For Exam (CT Spine Thoracic w/o Contrast) Back pain - Trauma with DISH Report CT THORACIC AND LUMBAR SPINE : CLINICAL INDICATION: Trauma with back pain TECHNIQUE: Transaxial sequence through the thoracic and separately through the lumbar spine with 1 mm reconstruction interval. Multiplanar reconstruction imaging was performed. COMPARISON: None FINDINGS: The vertebrae and joints: No wedge fracture or compression deformity of the thoracic and lumbar vertebral bodies is noted. There are large anterior marginal osteophytes bridging the vertebrae from T3 through L2. There is some sclerosis along the anterior aspect of these vertebrae as well. No other lytic bone lesion is identified. The facet joints demonstrate minor hypertrophic change at L4-L5 and L5-S1. Intervertebral disc spaces and spinal canal: Generalized disc space narrowing is noted throughout the thoracic levels. Lumbar disc levels demonstrate minor narrowing at L4-L5. There is no widening of the disc spaces. There is minor bony foraminal spinal stenosis at L4-L5 without other bony spinal stenosis. Soft tissues: Visualized portions of the lungs demonstrate dependent atelectasis. There is no consolidation. Cardiac chambers are relatively large. There is coronary artery calcification. No mediastinal or hilar mass is noted on this noncontrast study. Adrenals, pancreas and kidneys demonstrate no abnormality. There is dense atherosclerotic calcified abdominal aorta. No enlarged retroperitoneal lymph nodes are noted. IMPRESSION: 1. No thoracic or lumbar fracture identified 2. Flowing ossification about the anterior aspect of the vertebrae from T3-L2 corresponding to diffuse idiopathic skeletal hyperostosis. 3. Minor bony spinal stenosis at L4-L5 Computed Tomography Report Report Dictated on --- Final --- Dictated: 05/17/2021 6:36 am Dictating Physician: MD NIELSON JEFFREY Signed Date and Time: 05/17/2021 6:42 am Signed by: MD NIELSON JEFFREY Transcribed Date and Time: 05/17/2021 6:36 CT LUMBAR SPINE WO CONTRAST Result Date: 05/17/2021 [id number] Computed Tomography ACCESSION EXAM DATE/TIME PROCEDURE ORDERING PROVIDER [id number] 05/17/2021 05:[address] Spine Lumbar w/o MD JAMIL, NERISSA Contrast CPT code 50217 Reason For Exam (CT Spine Lumbar w/o Contrast) Back Pain w/ DISH Report CT THORACIC AND LUMBAR SPINE : CLINICAL INDICATION: Trauma with back pain TECHNIQUE: Transaxial sequence through the thoracic and separately through the lumbar spine with 1 mm reconstruction interval. Multiplanar reconstruction imaging was performed. COMPARISON: None FINDINGS: The vertebrae and joints: No wedge fracture or compression deformity of the thoracic and lumbar vertebral bodies is noted. There are large anterior marginal osteophytes bridging the vertebrae from T3 through L2. There is some sclerosis along the anterior aspect of these vertebrae as well. No other lytic bone lesion is identified. The facet joints demonstrate minor hypertrophic change at L4-L5 and L5-S1. Intervertebral disc spaces and spinal canal: Generalized disc space narrowing is noted throughout the thoracic levels. Lumbar disc levels demonstrate minor narrowing at L4-L5. There is no widening of the disc spaces. There is minor bony foraminal spinal stenosis at L4-L5 without other bony spinal stenosis. Soft tissues: Visualized portions of the lungs demonstrate dependent atelectasis. There is no consolidation. Cardiac chambers are relatively large. There is coronary artery calcification. No mediastinal or hilar mass is noted on this noncontrast study. Adrenals, pancreas and kidneys demonstrate no abnormality. There is dense atherosclerotic calcified abdominal aorta. No enlarged retroperitoneal lymph nodes are noted. IMPRESSION: 1. No thoracic or lumbar fracture identified 2. Flowing ossification about the anterior aspect of the vertebrae from T3-L2 corresponding to diffuse idiopathic skeletal hyperostosis. 3. Minor bony spinal stenosis at L4-L5 Computed Tomography Report Report Dictated on --- Final --- Dictated: 05/17/2021 6:36 am Dictating Physician: MD NIELSON JEFFREY Signed Date and Time: 05/17/2021 6:42 am Signed by: MD NIELSON JEFFREY Transcribed Date and Time: 05/17/2021 6:36 XR PELVIS (1-2 VW) Result Date: 05/17/2021 Patient Name: BEAR SHINE Diagnostic Radiology ACCESSION EXAM DATE/TIME PROCEDURE ORDERING PROVIDER [id number] 05/17/2021 00:31 EST CR Pelvis 1 or 2 Views [id number] -MIGUEL ANGEL PALACIO CPT code 05086 Reason For Exam (CR Pelvis 1 or 2 Views) fall, trauma Report PELVIS: CLINICAL INDICATION: Fall injury with pain. TECHNIQUE: AP COMPARISON: None. FINDINGS: Exam quality: The study is limited due to rotation. There is no evidence for fracture or dislocation. The hips joints are unremarkable. The sacroiliac joints are normal. No bone lesion is identified. Surgical clips overlie the soft tissues about the right-sided pelvis.. IMPRESSION: Limited study. No acute bony abnormality. Report Dictated on --- Final --- Dictated: 05/17/2021 1:46 am Dictating Physician: MD NIELSON JEFFREY Signed Date and Time: 05/17/2021 1:47 am Signed by: MD NIELSON JEFFREY Transcribed Date and Time: 05/17/2021 1:46 Patient Active Problem List Diagnosis Cervical compression fracture, initial encounter ([facility]) Fungal infection of the groin Insomnia PTSD (post-traumatic stress disorder) Seizure (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) Trauma Urinary retention ASSESSMENT: 71 y/o M s/p mechanical fall at home. Found to have a C1 lateral mass fracture. PLAN: Neuro/Spine: - Ortho spine consulted - Remain in c-collar for 3 months, f/u in 10 days - Initial head CT read at [facility] 05/16 20:22 as normal - Pain: PO tylenol 1g q8h shana,flexeril, lidocaine patches, prn oxy - Home phenobarb PO - home diazepam 10 mg PO TID - Start home trazodone 300mg qhs - Melatonin 3mg qhs - Consult palliative care - Delirium protocol HEENT: - C collar for 3 months Cardiovascular: - PRN labetalol/hydralazine - Home Isordil 30 mg qd PO - Hypertensive: start Norvasc daily - Home plavix Pulmonary: - IS - Cough and deep breathe FEN/GI: - Regular diet - Bowel regimen - PRN zofran : - CrCl: n/a - daily BMP: DC - Remove castelan - Start flomax Heme: - DC daily labs ID: - No acute issues Endo: - No acute issues Lines/Devices: - PIV Prophylaxis: DVT: Lovenox 30 BID Has DVT PPX been started? Yes If no, why? na GI: NA Pressure Ulcer: None Musculoskeletal: - PT/OT rec FBT WB Status: RUE:wbat LUE: wbat RLE: wbat LLE: wbat Is the patient in restraints?: no Disposition: Continue H5 care, PT rec facility however patient wants to go home, pain control, remove castelan, start flomax, start Norvasc Trauma Attending 05/19/2021 @ 1228 - Patient personally seen and examined w/ Lisandro / TREE CUTTER on @ 0905 - Progress Note above reviewed - Agree with following notations/corrections: - d/w pt risk of falling w/ C-collar - Pt acknowledged understanding and states he has enough help at home and does not need Rehab Magaly Manley MD, FACS See dictated note. CT neck C1 lateral mass fracture left. Will treat in collar, three months, follow with xr. Follow up 10 days after d/c. NVI. Allan Barrientos Comprehensive Nutrition Assessment Type and Reason for Visit: Initial Nutrition Recommendations/Plan: 1. Continue with Regular diet. 2. Monitor po intake/nutritional status. Nutrition Assessment: Pt with PMH that includes COPD, HTN, HPL, PTSD admits s/p same level fall, he tripped over his dog Michaelle, transfers to from outside hospital ([facility]). He had initial neck pain, then this continued and with back also so he went to ER. He sustained a C1 fracture, +C-collar placed. RD visited pt who was NPO at the time; now diet advanced to regular. Pt does endorse chronic left shoulder pain and a previous proximal humerus fracture. Malnutrition Assessment: Malnutrition Status: No malnutrition Context: Acute Illness Estimated Daily Nutrient Needs: Energy (kcal): 7802-4028 kcals/day; Weight Used for Energy Requirements: [place] (75.4kgs) Protein (g): 90-106g protein/day; Weight Used for Protein Requirements: [place] (75.4kgs) Fluid (ml/day): per MD-; Method Used for Fluid Requirements: Other (Comment) (per MD) Nutrition Related Findings: +BS, abd soft, excoriation groin Wounds: None Current Nutrition Therapies: ADULT DIET; Regular Anthropometric Measures: Height: 5' 10 (177.8 cm) Current Body Weight: 214 lb (97.1 kg) York Body Weight: 166 lbs; % York Body Weight 128.9 % BMI: 30.7 BMI Categories: Obese Class 1 (BMI 30.0-34.9) BMP: Recent Labs 05/17/21 0014 NA 139 K 4.6 CL 103 CO2 28 BUN 11 CREATININE 1.25 GLUCOSE 118* CALCIUM 8.3* Nutrition Diagnosis: Increased nutrient needs related to acute injury/trauma as evidenced by (increased nutrients for bone healing) Nutrition Interventions: Food and/or Nutrient Delivery: Continue Current Diet Nutrition Education/Counseling: Education not indicated Coordination of Nutrition Care: Continue to monitor while inpatient Goals: Pt consumes >50-75% meals consistently. Nutrition Monitoring and Evaluation: Food/Nutrient Intake Outcomes: Food and Nutrient Intake Physical Signs/Symptoms Outcomes: Biochemical Data,Nutrition Focused Physical Findings,Skin,Weight Discharge Planning: Too soon to determine Contact: Pager #[phone] Physical Therapy Facility/Department: [facility] ICU T2 Initial Assessment NAME: Bear Shine : 1950 Date of Service: 05/17/2021 Discharge Recommendations: (facility based therapy) PT Equipment Recommendations Equipment Needed: (continue to assess pending progress) Assessment Body structures, Functions, Activity limitations: Decreased functional mobility ;Decreased ADL status;Decreased endurance;Decreased strength;Decreased balance;Increased pain Assessment: Pt admitted after fall at home. 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 Pt in c collar at all times and sling for comfort. Pt only able to attain half way to EOB sitting before yelling out in pain. Pt L neck/head painful. Trauma resident in room to assess pt after pt returned to supine. Pt stating my head feels like it's going to explode and that it felt like bones in neck, not c collar rubbing. Pt max assist x 2 for attempted bed mobility with 2 skilled therapists. Discharge recommendation to facility based therapy. Prognosis: Fair Decision Making: Medium Complexity PT Education: Goals;PT Role;Plan of Care;General Safety;Precautions REQUIRES PT FOLLOW UP: Yes Activity Tolerance Activity Tolerance: Patient limited by pain Patient Diagnosis(es): There were no encounter diagnoses. has a past medical history of Anxiety, COPD (chronic obstructive pulmonary disease) (HCC), HTN (hypertension), Hyperlipidemia, PTSD (post-traumatic stress disorder), and Seizure disorder (HCC). has a past surgical history that includes Cholecystectomy; Appendectomy; TURP; and Cardiac catheterization. Restrictions Restrictions/Precautions Restrictions/Precautions: Fall Risk,Weight Bearing Required Braces or Orthoses?: Yes Upper Extremity Weight Bearing Restrictions Left Upper Extremity Weight Bearing: Non Weight Bearing Required Braces or Orthoses Cervical: c-collar Left Upper Extremity Brace/Splint: Sling Left Upper Extremity Brace/Splint: comfort Subjective General Chart Reviewed: Yes Patient assessed for rehabilitation services?: Yes Family / Caregiver Present: No Diagnosis: trauma, fall at home, chronic greater tuberosity malunion and C1 left lateral mass and posterior arch fx Follows Commands: Within Functional Limits Subjective Subjective: Pt presents supine in bed and agreeable to Pt Pain Screening Patient Currently in Pain: Yes Pain Assessment Pain Assessment: 0-10 Pain Level: 7 Pain Type: Acute pain Pain Location: Neck Pain Orientation: Left Vital Signs Patient Currently in Pain: Yes Pre Treatment Pain Screening Intervention List: Patient able to continue with treatment;Nurse/physician notified Social/Functional History Social/Functional History Lives With: Alone Type of Home: House ADL Assistance: Independent Homemaking Assistance: Independent Homemaking Responsibilities: Yes Ambulation Assistance: Independent Transfer Assistance: Independent Additional Comments: pt with increased pain with attempt at sitting EOB; unable to gather further PLOF due to increased pain and pt yelling out, resident in room to assess pt. Objective AROM RLE (degrees) RLE AROM: WFL AROM LLE (degrees) LLE AROM : WFL Strength RLE Comment: grossly 3/5 as seen through functional mobility, due to pain unable to formally assess Strength LLE Comment: grossly 3/5 as seen through functional mobility, due to pain unable to formally assess Bed mobility Supine to Sit: 2 Person assistance;Maximum assistance Sit to Supine: 2 Person assistance;Maximum assistance Comment: Attempted supine to sit with max assist x 2 for two skilled therapists for safety. Pt half way to sitting EOB and began grabbing L ear/neck and yelling out in pain. Pt returned to supine and trauma resident in room to assess pt. Pt states pain not from c collar but feels like bones in neck and head and like my head is going to explode . Ambulation Ambulation?: No Stairs/Curb Stairs?: No Balance Comments: unable to assess, pt unable to sit EOB Plan Plan Times per week: 4-5 Plan weeks: 2 Current Treatment Recommendations: Strengthening,Transfer Training,Endurance Training,Patient/Caregiver Education & Training,ADL/Self-care Training,Balance Training,Gait Training,Functional Mobility Training,Stair training,Safety Education & Training,Equipment Evaluation, Education, & procurement Safety Devices Type of devices: All fall risk precautions in place,Patient at risk for falls,Left in bed,Call light within reach,Bed alarm in place,Nurse notified Restraints Initially in place: No AM-PAC Score AM-PAC Inpatient Mobility Raw Score : 6 (05/17/211518) AM-PAC Inpatient T-Scale Score : 23.55 (05/17/211518) Mobility Inpatient CMS 0-100% Score: 100 (05/17/211518) Mobility Inpatient CMS G-Code Modifier : CN (05/17/211518) Goals Short term goals Time Frame for Short term goals: 2 weeks Short term goal 1: Pt to perform bed mobility with modified independence Short term goal 2: Pt to perform sit to stand transfers with modified independence Short term goal 3: Pt to ambulate with least restrictive device x 50' with modified independence Patient Goals Patient goals : to be more mobile Therapy Time Individual Concurrent Group Co-treatment Time In 1335 Time Out 1345 Minutes 10 This PT wore a KN95 mask, face shield & gloves during entire PT eval/Rx. Goals and/or treatment plan was established in collaboration with patient/family/other representatives. Patient s Physical Therapy Plan of Care supervision is transferred to [facility] Rehab Department Physical Therapist. Barbie Castle PT Speech Language Pathology Facility/Department: [facility] ICU T2 CLINICAL BEDSIDE SWALLOW EVALUATION NAME: Bear Shine : 1950 ADMISSION DATE: 05/16/2021 ADMITTING DIAGNOSIS: has Cervical compression fracture, initial encounter ([facility]); Fungal infection of the groin; Insomnia; PTSD (post-traumatic stress disorder); Seizure (HCC); Impaired gait; Acute pain due to trauma; Memory loss; Palliative care encounter; Post-traumatic seizures (HCC); and Trauma on their problem list. ONSET DATE: 05/16/21 Recent Chest Xray/CT of Chest: None on file this admission. Date of Eval: 05/17/2021 Evaluating Therapist: Mayra Rolle MA, CCC-OPERATIONS LABEL CLERK Current Diet level: Current Diet : NPO Current Liquid Diet : NPO Primary Complaint Chief Complaint: neck pain Patient Complaint: None at this time. Pain: RN managing patient pain. Pain Assessment Pain Assessment: 0-10 Pain Level: 7 Patient's Stated Pain Goal: No pain Pain Type: Acute pain Pain Location: Neck Pain Orientation: Left RASS Score: Drowsy - Patient awakens with sustained eye opening and eye contact POSS Score (Patient Ctrl Analgesia): S Reason for Referral Bear Shine was referred for a bedside swallow evaluation to assess the efficiency of his swallow function, identify signs and symptoms of aspiration and make recommendations regarding safe dietary consistencies, effective compensatory strategies, and safe eating environment. 71 y.o. male status post fall. The incident happened around 05/16 on 03:00 at home. When the event happened the patient was with his dog Michaelle and lost balance and fell and hit his dog's cage. Denies LOC. Impression Dysphagia Diagnosis: Swallow function appears grossly intact Dysphagia Impression : Patient clinically presents with an essentially normal swallow function. Patient with no overt s/s of penetration or aspiration at the bedside. Patient does not required ST services at this time. Treatment Plan Requires OPERATIONS LABEL CLERK Intervention: No Duration/Frequency of Treatment: NA Recommended Diet and Intervention Recommend Regular Diet with Thin Liquids + safe swallow strategies. Patient clinically presents with an essentially normal swallow function, no ST services required at this time. Please contact ST with any questions or new concerns. Diet Solids Recommendation: Regular Liquid Consistency Recommendation: Thin Compensatory Swallowing Strategies Compensatory Swallowing Strategies: Upright as possible for all oral intake;Small bites/sips;Eat/Feed slowly;Alternate solids and liquids Treatment/Goals; NA General Chart Reviewed: Yes Subjective Subjective: Patient alert and trendelenburg upright in bed upon ST arrival, c-collar in place. ST spoke with RN prior to session. Patient fully participated throughout session. Behavior/Cognition: Alert;Cooperative;Pleasant mood Respiratory Status: O2 via nasal cannula Breath Sounds: Clear O2 Device: Nasal cannula Liters of Oxygen: 2 L Communication Observation: Functional Follows Directions: Simple Dentition: Dentures bottom;Dentures top Patient Positioning: Upright in bed Baseline Vocal Quality: Normal Prior Dysphagia History: NA Consistencies Administered: Reg solid;Dysphagia Soft and Bite-Sized (Dysphagia III);Dysphagia Pureed (Dysphagia I);Ice Chips;Thin - straw Vision/Hearing Vision Vision: Within Functional Limits Hearing Hearing: Within functional limits Oral Motor Deficits Oral/Motor Oral Motor: Within functional limits Oral Phase Dysfunction Oral Phase Oral Phase: WNL Oral Phase Comment: Patient able to feed self. Patient with timely mastication timely bolus transport, and slight oral residue that cleared with thin liquid chaser cued by patient. Suspect good bolus control. No anterior spillage of liquid bolus. Patient clinically presents with an essentially normal oral phase of the swallow function. Indicators of Pharyngeal Phase Dysfunction Pharyngeal Phase Pharyngeal Phase: WNL Pharyngeal Phase Comment: Patient with no cough or change in vocal quality. Noted strong laryngeal elevation in c-collar. No increased or effortful breathing following PO trials. SpO2 remained at 100% throughout session. Patient clinically presents with an essentially normal pharyngeal phase of the swallow function. Prognosis Prognosis Prognosis for safe diet advancement: good Individuals consulted Consulted and agree with results and recommendations: Patient;RN;MD Education Patient Education: ST educated patient on safe swallow function and strategies. Patient Education Response: Demonstrated understanding;Verbalizes understanding Safety Devices in place: Yes Therapy Time OPERATIONS LABEL CLERK Individual Minutes Time In: 1335 Time Out: 1349 Minutes: 14 A surgical mask and gloves were worn throughout this session. Mayra Rolle MA, CCC-OPERATIONS LABEL CLERK 05/17/2021 3:11 PM Occupational Therapy Occupational Therapy Initial Assessment Date: 05/17/2021 Patient Name: Bear Shine : 1950 Date of Service: 05/17/2021 Discharge Recommendations: (facility based therapy) This provider wore a mask and gloves during the treatment session. Assessment Performance deficits / Impairments: Decreased functional mobility ;Decreased high-level IADLs;Decreased ADL status;Decreased endurance;Decreased ROM;Decreased coordination;Decreased strength Assessment: OT eval completed, pt presents with performance deficits listed above. pt admitted s/p fall with C1 left lateral mass and posterior arch fx; had surgery scheduled for rotator cuff tear left UE for 05/02 however it was cancelled- sling for comfort. Pt max A x2 for supine<>sit however yelling out in pain and unable to achieve sitting EOB. Dependent for LE dressing. Pt significantly limited by pain this date, at this time unsafe to return home as he would be unable to complete his daily routine. Will continue to assess, however anticipate facility based therapy. Prognosis: Good Decision Making: Low Complexity OT Education: OT Role;Plan of Care;Precautions REQUIRES OT FOLLOW UP: Yes Activity Tolerance Activity Tolerance: Patient Tolerated treatment well;Patient limited by pain Safety Devices Safety Devices in place: Yes Type of devices: All fall risk precautions in place;Patient at risk for falls;Left in bed;Bed alarm in place;Call light within reach Patient Diagnosis(es): There were no encounter diagnoses. has a past medical history of Anxiety, COPD (chronic obstructive pulmonary disease) (HCC), HTN (hypertension), Hyperlipidemia, PTSD (post-traumatic stress disorder), and Seizure disorder (HCC). has a past surgical history that includes Cholecystectomy; Appendectomy; TURP; and Cardiac catheterization. Restrictions Restrictions/Precautions Restrictions/Precautions: Fall Risk,Weight Bearing Required Braces or Orthoses?: Yes Upper Extremity Weight Bearing Restrictions Left Upper Extremity Weight Bearing: Non Weight Bearing Required Braces or Orthoses Cervical: c-collar Left Upper Extremity Brace/Splint: Sling Left Upper Extremity Brace/Splint: comfort Subjective General Chart Reviewed: Yes Patient assessed for rehabilitation services?: Yes Additional Pertinent Hx: pt with rotator cuff tear, surgery scheduled 05/02 which was cancelled- left shoulder sling for comfort Family / Caregiver Present: No Diagnosis: fall; C1 left lateral mass and posterior arch fx Subjective Subjective: pt supine in bed upon entry, agreeable to therapy; RN ok'd for therapy Patient Currently in Pain: Yes Pain Assessment Pain Assessment: 0-10 Pain Level: 7 Patient's Stated Pain Goal: No pain Pain Type: Acute pain Pain Location: Neck Pain Orientation: Left Pre Treatment Pain Screening Intervention List: Nurse/Physician notified Vital Signs Pulse: 60 Resp: 8 BP: (!) 174/86 MAP (mmHg): 114 Patient Currently in Pain: Yes Social/Functional History Social/Functional History Lives With: Alone Type of Home: House ADL Assistance: Independent Homemaking Assistance: Independent Homemaking Responsibilities: Yes Ambulation Assistance: Independent Transfer Assistance: Independent Additional Comments: pt with increased pain with attempt at sitting EOB; unable to gather further PLOF due to increased pain and pt yelling out, resident in room to assess pt. Objective Vision: Impaired Vision Exceptions: Wears glasses at all times (glasses are at home) Hearing: Within functional limits Orientation Orientation Level: Oriented to person;Oriented to place Observation/Palpation Observation: C-collar in place, sling partially donned but not supporting LUE. ADL LE Dressing: Dependent/Total Additional Comments: through functional assessment pt dependent for LE dressing/bathing, dependent for toileting, mod A for UE dressing/bathing, SBA for grooming Tone RUE RUE Tone: Normotonic Tone LUE LUE Tone: Normotonic Coordination Movements Are Fluid And Coordinated: No Coordination and Movement description: Gross motor impairments;Left UE Bed mobility Supine to Sit: 2 Person assistance;Maximum assistance Sit to Supine: 2 Person assistance;Maximum assistance Comment: attempted supine <>sit EOB, max A x2 person, two skilled therapists for pt and therapist safety. Unable to achieve full sitting EOB, approx half of supine<>sit completed when pt began yelling out in pain and unable to tolerate. Returned pt to supine in bed. Resident in room to assess pt. Cognition Overall Cognitive Status: Exceptions Arousal/Alertness: Appropriate responses to stimuli Following Commands: Follows one step commands consistently Attention Span: Attends with cues to redirect Memory: Appears intact LUE AROM (degrees) LUE General AROM: ROM as tolerated per chart review- did not assess shoulder, elbow distally grossly WFL RUE AROM (degrees) RUE General AROM: grossly WFL Plan Plan Times per week: 3-5 Plan weeks: 4 Current Treatment Recommendations: Strengthening,Pain Management,Positioning,ROM,Safety Education & Training,Balance Training,Patient/Caregiver Education & Training,Self-Care / ADL,Functional Mobility Training,Endurance Training,Equipment Evaluation, Education, & procurement,Home Management Training G-Code OutComes Score AM-PAC Daily Activity Inpatient How much help for putting on and taking off regular lower body clothing?: Total How much help for Bathing?: Total How much help for Toileting?: Total How much help for putting on and taking off regular upper body clothing?: A Lot How much help for taking care of personal grooming?: None How much help for eating meals?: None AM-PAC Inpatient Daily Activity Raw Score: 13 AM-PAC Inpatient ADL T-Scale Score : 32.03 ADL Inpatient CMS 0-100% Score: 63.03 ADL Inpatient CMS G-Code Modifier : CL Goals Short term goals Time Frame for Short term goals: 4 weeks Short term goal 1: Supine<>sit, SBA Short term goal 2: Tolerate sitting EOB for 3 minutes Short term goal 3: Dynamic seated task with good sitting balance Short term goal 4: Functional task with no cues to maintain NWB LUE Patient Goals Patient goals : none stated Therapy Time Individual Concurrent Group Co-treatment Time In 1347 Time Out 1358 Minutes 11 Patient's Occupational Therapy Plan [facility]. Goals and/or treatment plan was established in collaboration with patient/family/other representatives. Brandee Bowles OTR/L Speech Language Pathology Attempted to see this date for completion of Bedside Swallow Evaluation. Patient being transported off of floor upon ST arrival. ST spoke with RN. ST will follow up with as schedule permits for completion of order. Mayra Rolle MA, CCC-OPERATIONS LABEL CLERK Orthopedic surgery reviewed CT neck with contrast, thoracic and lumbar spine. There is no vertebral artery injury. There is no evidence of thoracic or lumbar fracture through the previously described DISH. The left C1 lateral mass and posterior ring is also visualized again showing adequate alignment. We will plan to obtain upright cervical radiographs with c-collar when patient can tolerate it. Orthopedic surgery will follow peripherally for these radiographs. Please page any questions or concerns [id number] Senior Resident Attestation: Pt seen, agree with above assessment and plan. I performed an independent exam and agree with above exam. Aram Encinas MD PGY-5 05/17/21 7:56 AM EST I was notified by the resident that the patient had arrived on T2 as a Direct Admit. I immediately came to T2 ICU to evaluate patient. I was at the bedside within 15 minutes of patient arrival. Please see H&P for further details. 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 Review of System There may be information available, but it has not been provided by the sender. Family History There may be information available, but it has not been provided by the sender.No Family History Records FoundNo Family History Records FoundNo Family History Records Found History of Present Illness There may be information available, but it has not been provided by the sender. Summary Purpose Hospital Course Note Send Summary: Discharge Summ kelsie Providers: Provider RoleProvider Name ReferringRequired, No Pcp ConsultingPsych Consult AttendingYaya Lamb PrimaryRequired, No Pcp Note Recipients: Required, [place] [facility] [place] Summary: Admission Date: .01-Jun-2019 15:00:00 Discharge Date: 09-Jun-2019 Attending Physician at Discharge: Yaya Lamb Admission Reason: Seizure workup - vEEG(1) Final Discharge Diagnoses: Spells of unclear etiology. No spells were captured. No epileptiform discharges were captured. Procedures: none Condition at Discharge: Satisfactory Disposition at Discharge: To Psych Hosp/Plan Readmit Vital Signs: T PRBPSpO2 [id number]% Date/Time/ 15:004/2 15:004/2 15:004/2 15:004/2 15:00 Range(36.3C - 36.3C ) (64 - 64 ) (18 - 18 ) (147 - 147 )/ (72 - 72 ) (96% - 96% ) Physical Exam: See daily progress note from 06/09/2019 for physical exam Hospital Course: Mr. Bear Shine is a 69 year old man with seizure disorder, CAD s/p stent x (more content not included)... Additional Source Comments Reason for Visit (unrecogniz ed section and content) (unrecognized sect ion and content) No Status Records FoundNo Status Records FoundNo Status Records Found INFORMATION SOURCE (unrecogn ized section and content) DATE CREATED AUTHOR AUTHOR'S ORGANIZ ATION 05/24/2021 [employer] DATE CREATED AUTHOR AUTHOR'S ORGANIZ ATION 06/09/2021 [facility] [employer] Ordered Prescriptions (unrec ognized section and content) Scheduled Active and Recently Administ ered Medications (unrecognized section and content) PRN Medication Order 05/21/2021 05/22/2021 05/23/2021 0.9 % sodium chloride infusion 25 mL, IntraVENous, at 100 mL/hr, PRN, If patient receiving piggyback infusions without ordered maintenance IV fluids or with frequent/long duration piggyback infusions, Starting on Tiki 05/16/21 at 2351, Administer at the same rate as the piggyback being infused. butalbital-acetaminophen- caffeine (FIORICET, ESGIC) per tablet 1 tablet 1 tablet, Oral, EVERY 6 HOURS PRN, Headaches, Starting on Thu05/22/21 at 0952, Maximum dose of acetaminophen is 4000 mg from all sources in 24 hours. hydrALAZINE (APRESOLINE) injection 10 mg 10 mg, IntraVENous, EVERY 4 HOURS PRN, High Blood Pressure, SBP >160. Hold if HR > 100. Second line PRN, Starting on Thu05/17/21 at 0013 labetalol (NORMODYNE;TRANDATE) injection 10 mg 10 mg, IntraVENous, EVERY 4 HOURS PRN, High Blood Pressure, SBP > 160. Hold if HR < 60. First line, Starting on Thu05/17/21 at 0013 naloxone (NARCAN) injection 0.4 mg 0.4 mg, IntraVENous, PRN, Opioid Reversal, Starting on Thu05/21/21 at 1456, Please notify the Trauma services if administered ondansetron (ZOFRAN) injection 4 mg(Linked Group 1) 4 mg, IntraVENous, EVERY 6 HOURS PRN, Nausea, Vomiting, Starting on Tiki 05/16/21 at 2351, Administer if oral route cannot be used. ondansetron (ZOFRAN-ODT) disintegrating tablet 4 mg(Linked Group 1) 4 mg, Oral, EVERY 8 HOURS PRN, Nausea, Vomiting, Starting on Tiki 05/16/21 at 2351 oxyCODONE (ROXICODONE) immediate release tablet 10 mg 10 mg, Oral, EVERY 4 HOURS PRN, Pain Moderate (4-6), Pain Severe (7-10), Starting on 05/18/21 at 1145 0533 (Given - Provider: Duran Peter RN)0941 (Given - Provider: Genesis Loya RN)1415 (Given - Provider: Genesis Loya, RN)1817 (Given - Provider: Genesis Loya RN) 0132 (Given - Provider: Yareli Diego RN)0530 (Given - Provider: Yareli Diego, SAVAGE)1129 (Given - Provider: Daisy Cooper, SAVAGE)1553 (Given - Provider: Daisy Cooper, SAVAGE)2016 (Given - Provider: Yareli Diego, SAVAGE) 0211 (Given - Provider: Yareli Diego, SAVAGE)0914 (Given - Provider: Leidy Leary, SAVAGE)1417 (Given - Provider: Leidy Leary, SAVAGE) sodium chloride flush 0.9 % injection 5-40 mL 5-40 mL, IntraVENous, PRN, Line Care, After every IV line use, Starting on Tiki 05/16/21 at 2351, For Line Patency: Peripheral IV = 5 mL; Midline or Central Line = 10 mL/lumen. If following IV push medication, administer flush at same rate as the IV push. Flush volume is determined by type of infusion therapy being given. For non-viscous solutions use: Peripheral IV = 5 mL Midline or Central Line = 10 mL/lumen For viscous solutions (i.e. blood components, parenteral nutrition, contrast media, or after obtaining blood sample) use: Peripheral IV = 10 mL Midline or Central Line = 20 mL/lumen Linked Groups Order Group 1: ondansetron (ZOFRAN-ODT) disintegrating tablet 4 mgJump to med 4 mg, Oral, EVERY 8 HOURS PRN, Nausea, Vomiting, Starting on Tiki 05/16/21 at 2351 Or ondansetron (ZOFRAN) injection 4 mgJump to med 4 mg, IntraVENous, EVERY 6 HOURS PRN, Nausea, Vomiting, Starting on Tiki 05/16/21 at 2351
Administer if oral route cannot be used.
Care Teams (unrecognized sec tion and content) FOR RECORDS PERTAINING TO PATIENTS WHO ARE OR HAVE BEEN ENROLLED IN A CHEMICAL DEPENDENCY/SUBSTANCEABUSE PROGRAM, SOME INFORMATION MAY BE OMITTED. This clinical summary was aggregated from multiple sources. Caution should be exercised in using it in the provision of clinical care. This summary normalizes information from multiple sources, and as a consequence, information in this document may materially change the coding, format and clinical context of patient data. In addition, data may be omitted in some cases. CLINICAL DECISIONS SHOULD BE BASED ON THE PRIMARY CLINICAL RECORDS. [employer] [facility]. provides no warranty or guarantee of the accuracy or completeness of information in this document.
== END 2023-05-04 17:58 | disposition home or self-care (01) ==
PROVIDERS: Emergency Provider Emergency Medicine; PCP Family Medicine; Visit Provider Emergency Medicine
DX: S80.219A Abrasion, unspecified knee, initial encounter (principal); J44.9 Chronic obstructive pulmonary disease, unspecified; E78.5 Hyperlipidemia, unspecified; Z97.2 Presence of dental prosthetic device (complete) (partial); S50.312A Abrasion of left elbow, initial encounter; W01.0XXA Fall on same level from slipping, tripping and stumbling without subsequent striking against object, initial encounter; S40.812A Abrasion of left upper arm, initial encounter; S60.512A Abrasion of left hand, initial encounter; S60.222A Contusion of left hand, initial encounter; S05.10XA Contusion of eyeball and orbital tissues, unspecified eye, initial encounter; I12.9 Hypertensive chronic kidney disease with stage 1 through stage 4 chronic kidney disease, or unspecified chronic kidney disease; S20.20XA Contusion of thorax, unspecified, initial encounter; S00.83XA Contusion of other part of head, initial encounter; I25.10 Atherosclerotic heart disease of native coronary artery without angina pectoris; Z95.5 Presence of coronary angioplasty implant and graft
CPT/HCPCS: 70450; 71250; 72125; 73030; 73130; 96374; 96375; 99283; A4216; J2405

== ENCOUNTER 2023-06-22 13:48 | Inpatient (IN) | payer OTHER, MEDICARE, MEDICAID, SELFPAY ==
[2023-06-22 13:59] VITALS: BP 142/73; PULSE 65; RESP 18; TEMP 36.6; O2SAT 96; BMI 28.8
--- NOTE | 2023-06-22 14:12 | EKG12_ITS ---
Test Reason : SEIZURE Blood Pressure : / mmHG Vent. Rate : 064 BPM Atrial Rate : 064 BPM P-R Int : 190 ms QRS Dur : 086 ms QT Int : 402 ms P-R-T Axes : 061 -20 007 degrees QTc Int : 414 ms Normal sinus rhythm Normal ECG Confirmed by ZHAO XAVIER, RACHEL ([id number]), tape editor NAVEEN PATEL ([id number]) on 06/23/2023 8:27:38 AM Referred By: Confirmed By:RACHEL CHURCHILL MD
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
[2023-06-22] MEDS: 0.9% Normal Saline (1000mL) 1,000 ML 999 ML IV (14:30)
[2023-06-22 14:34] LABS: Bacteria 0 SEEN /hpf (None Seen); Mucous, Urine 0 SEEN /hpf (<or=2+); Red Blood Cells-Urine 0 SEEN /hpf (0-5); Squamous Epithelial Cells - UA 0 SEEN /hpf (0-5); White Blood Cells 0 SEEN /hpf (0-5)
[2023-06-22 14:37] LABS: Absolute Lymphocyte Count 0.89 X10^3/uL (0.83-4.51); Absolute Neutrophil Count 13.2 X10^3/uL (2.0-7.7); Basophil# 0.14 X10^3/uL; Basophil% 0.9 % (0-1); Eosinophil# 0.15 X10^3/uL; Eosinophils% 0.9 % (0-5); Lymphocyte # 0.89 X10^3/ul (0.83-4.51); Lymphocyte % 5.5 % (19-41); Mean Corp Hgb Conc 32.4 g/dL (32-36); Mean Corpuscular Hgb 32.1 pg (27.0-32.0); Mean Platelet Vol. 10.2 fl (6.2-12.0); Monocyte# 1.77 X10^3/uL; Monocyte% 10.9 % (0-10); NRBC Flagged by Analyzer 0 % (0-5); Neutrophil # 13.15 X10^3/uL (2.7-7.7); Neutrophil % 80.6 % (47-70); Platelet Count 164 K/mm3 (150-450); RBC Distribution Width CV 12.9 % (11.6-14.6); RBC Distribution Width SD 46.9 fl (35.1-43.9); Red Blood Count 5.77 M/mm3 (4.6-6.2); White Blood Count 16.3 K/mm3 (4.4-11.0)
[2023-06-22 14:38] LABS: Color, Urine Yellow (Yellow); Glucose, Dipstick Normal (Normal); Ketone-Dipstick 50 mg/dl (Negative); Leukocyte Esterase-Dipstick Negative /ul (Negative); Nitrite-Dipstick Negative (Negative); Occult Blood-Urine 25 /ul (Negative); Protein-Dipstick 30 mg/dl (Negative); Specific Gravity, Urine 1.015 (1.002-1.030); Urine Bilirubin Dipstick Negative (Negative); Urine Clarity Clear (Clear); Urine Urobilinogen Normal (Normal)
[2023-06-22 14:50] LABS: International Normalized Ratio 1.2; Prothrombin Time (Protime)PT. 14.8 SECONDS (11.7-14.9)
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
[2023-06-22 14:57] LABS: CPK Total, Creatine Kinase 832 U/L (39-308); Troponin-I HS 9 pg/mL (3.0-78.0)
[2023-06-22 15:01] LABS: Anion Gap 7 (5-15); BUN 20 mg/dL (7-18); BUN/Creat Ratio 13.1 RATIO (10-20); Calcium,Total 8.9 mg/dL (8.5-10.1); Chloride 102 mmol/L (98-107); Creatinine, Serum 1.53 mg/dL (0.70-1.30); EST Glomerular Filtration Rate 47 mL/min (>60); Est Glom Filt Rate - Afr Amer 57 mL/min (>60); Estimated Creatinine Clearance 47.32 ml/min; Glucose 91 mg/dL (74-106); Potassium 4.8 mmol/L (3.5-5.1); Sodium Level 139 mmol/L (136-145)
[2023-06-22 15:10] LABS: Differential Indicated SCAN CRITERIA MET; Hematocrit 57.1 % (40-54)
[2023-06-22 15:15] LABS: Hemoglobin 18.5 g/dL (13.0-16.5)
[2023-06-22 15:16] LABS: POSITIVE DIFFERENTIAL YES
[2023-06-22 15:23] LABS: Alcohol, Blood (Medical)-Serum < 3.0 mg/dL; Anisocytosis 1+; Platelet Estimate ADEQUATE (ADEQ); Red Cell Morphology N CHROM NORMAL (NORM C&C)
[2023-06-22 15:24] LABS: Macrocytosis 1+
[2023-06-22 15:45] VITALS: BP 153/73; PULSE 62; RESP 19; O2SAT 97
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
[2023-06-22] MEDS: Phenobarbital Sodium 130 MG/ML Vial 100 MG IV (16:53)
[2023-06-22 17:00] VITALS: BP 134/74; PULSE 62; RESP 18; TEMP 36.3; O2SAT 94
[2023-06-22 17:53] LABS: Magnesium 2.1 mg/dL (1.6-2.6); Phosphorus 2.7 mg/dL (2.5-4.9)
[2023-06-22 18:42] VITALS: BP 123/62; PULSE 63; RESP 16; TEMP 36.2; O2SAT 97
[2023-06-22 18:59] VITALS: BP 148/70; PULSE 62; RESP 18; TEMP 36.5; O2SAT 98
[2023-06-22 19:01] VITALS: BMI 28.8
--- NOTE | 2023-06-22 19:10 | NURSING ---
pt is very sleepy unable to obtain history from pt.
[2023-06-22] MEDS: Budesonide Respules 0.5 MG/2 ML AMPUL.NEB. INHALATION (20:25)
[2023-06-22] MEDS: Albuterol 2.5 MG/3 ML VIAL.NEB. INHALATION (20:25)
[2023-06-22 20:27] VITALS: PULSE 62; RESP 16; O2SAT 98
[2023-06-22] MEDS: 0.9% Normal Saline (1000mL) 1,000 ML 125 ML IV ×2 (22:02→23:10)
[2023-06-22] MEDS: Menthol/Lanolin/Calamine/Znox 113 GM Tube 1 APPLIC TOPICAL (22:02)
[2023-06-22] MEDS: Phenobarbital 32.4 MG Tablet 129.6 MG PO (22:12)
[2023-06-22] MEDS: Heparin Injection (Vial) 5,000 UNIT/ML VIAL 5000 UNIT SC (22:12)
[2023-06-22] MEDS: Timolol 0.5% 5ML OPTH.BTL 1 DRP OPHTHALMIC (22:13)
[2023-06-22] MEDS: traZODone 100 MG Tablet PO (22:13)
[2023-06-22] MEDS: Gabapentin 100 MG Capsule 200 MG PO (22:13)
[2023-06-22] MEDS: diazePAM 5 MG Tablet 10 MG PO (22:13)
[2023-06-23] VITALS (8 sets, daily range): BP systolic 112–123; BP diastolic 59–74; PULSE 57–69; RESP 16–18; TEMP 36.6–36.8; O2SAT 96–99; BMI 28.8
[2023-06-23] MEDS: Acetaminophen 325 MG Tablet 650 MG PO ×2 (02:52→13:32)
[2023-06-23] MEDS: diazePAM 5 MG Tablet 10 MG PO ×3 (06:08→21:38)
[2023-06-23 07:08] LABS: Absolute Lymphocyte Count 1.07 X10^3/uL (0.83-4.51); Absolute Neutrophil Count 8.2 X10^3/uL (2.0-7.7); Basophil# 0.07 X10^3/uL; Basophil% 0.7 % (0-1); Eosinophil# 0.18 X10^3/uL; Eosinophils% 1.7 % (0-5); Hematocrit 49.6 % (40-54); Hemoglobin 16.5 g/dL (13.0-16.5); Lymphocyte # 1.07 X10^3/ul (0.83-4.51); Mean Corp Hgb Conc 33.3 g/dL (32-36); Mean Corpuscular Hgb 33.4 pg (27.0-32.0); Mean Corpuscular Volume 100.4 fL (80-94); Mean Platelet Vol. 10.9 fl (6.2-12.0); Monocyte# 1.08 X10^3/uL; Monocyte% 10.1 % (0-10); NRBC Flagged by Analyzer 0 % (0-5); Neutrophil # 8.17 X10^3/uL (2.7-7.7); Neutrophil % 76.4 % (47-70); Platelet Count 144 K/mm3 (150-450); RBC Distribution Width CV 13.1 % (11.6-14.6); Red Blood Count 4.94 M/mm3 (4.6-6.2); White Blood Count 10.7 K/mm3 (4.4-11.0)
[2023-06-23] MEDS: Budesonide Respules 0.5 MG/2 ML AMPUL.NEB. INHALATION ×2 (07:16→19:16)
--- NOTE | 2023-06-23 07:28 | PN.HOSP_ITS ---
Reason for Visit Reason for Visit: Diagnoses Rhabdomyolysis (06/22/23) Subjective Subjective Complains of diffuse pain. Stated that he was having a night terror, that he was back in the the [facility] [place] and awoke, was dazed and fell and remained on the floor for 4 days. Wants a new home care agency, because they should know. Objective Data Objective Data Vital Signs: Vital Signs Temp Pulse Resp BP Pulse Ox O2 Del Method 36.7 C 69 18 123/74 H 96 Room Air 06/23/23 02:44 06/23/23 02:44 06/23/23 02:44 06/23/23 02:44 06/23/23 02:44 06/23/23 02:59 Oxygen Delivery Method Room Air Weight: 91.2 kg Body Mass Index (BMI) 28.8 Intake & Output: Intake and Output for Last 24 Hours 06/21/23 06/22/23 06/23/23 23:59 23:59 23:59 Intake Total 2000 / 2600 1100 / 1100 Balance 2000 / 2600 1100 / 1100 Lab / Micro Data 06/23/23 06:24 06/23/23 06:24 Labs: Laboratory Results - last 24 hr 06/22/23 14:20: WBC 16.3 H, RBC 5.77, Hgb 18.5 H*, Hct 57.1 H, MCV 99.0 H, MCH 32.1 H, MCHC 32.4, RDW Std Deviation 46.9 H, RDW Coeff of Frantz 12.9, Plt Count 164, MPV 10.2, Immature Gran % (Auto) 1.200 H, Neut % (Auto) 80.6 H, Lymph % (Auto) 5.5 L, [place] % (Auto) 10.9 H, Eos % (Auto) 0.9, Baso % (Auto) 0.9, Absolute Neuts (auto) 13.2 H, Absolute Lymphs (auto) 0.89, Nucleated RBC % 0, Differential Comment SEE COMMENT, Diff Path Review July foll, Platelet Estimate ADEQUATE, RBC Morphology N CHROM, Anisocytosis 1+, Macrocytosis 1+, PT 14.8, INR 1.2, Sodium 139, Potassium 4.8, Chloride 102, Carbon Dioxide 30.0, Anion Gap 7, BUN 20 H, Creatinine 1.53 H, Estim Creat Clear Calc 47.32, Est GFR (MDRD) Af Amer 57 L, Est GFR (MDRD) Non-Af 47 L, BUN/Creatinine Ratio 13.1, Glucose 91, Calcium 8.9, Total Creatine Kinase 832 H, Troponin I High Sens 9, Urine Color Yellow, Urine Clarity Clear, Urine pH 5.0, Ur Specific [place] 1.015, Urine Protein 30 H, Urine Glucose (UA) Normal, Urine Ketones 50 H, Urine Occult Blood 25 H, Urine Nitrite Negative, Urine Bilirubin Negative, Urine Urobilinogen Normal, Ur Leukocyte Esterase Negative, Urine RBC 0 SEEN, Urine WBC 0 SEEN, Ur Squamous Epith Cells 0 SEEN, Urine Bacteria 0 SEEN, Urine Mucus 0 SEEN, Ethyl Alcohol < 3.0 06/22/23 17:20: Phosphorus 2.7, Magnesium 2.1, Phenobarbital 30.7 06/23/23 06:24: WBC 10.7, RBC 4.94, Hgb 16.5, Hct 49.6, MCV 100.4 H, MCH 33.4 H, MCHC 33.3, RDW Std Deviation 48.0 H, RDW Coeff of Frantz 13.1, Plt Count 144 L, MPV 10.9, Immature Gran % (Auto) 1.100 H, Neut % (Auto) 76.4 H, Lymph % (Auto) 10.0 L, [place] % (Auto) 10.1 H, Eos % (Auto) 1.7, Baso % (Auto) 0.7, Absolute Neuts (auto) 8.2 H, Absolute Lymphs (auto) 1.07, Nucleated RBC % 0 Radiography Diagnostic Testing: Radiology Impression Brain CT 06/22/23 14:52 IMPRESSION: Chronic involutional changes of the brain. Electronically Signed: Sanya Jacome MD at 15:18 EDT , Cervical Spine CT 06/22/23 14:52 IMPRESSION: Multilevel degenerative changes, as described above. Electronically Signed: Sanya Jacome MD at 15:17 EDT , Chest/Abdomen/Pelvis CT 06/22/23 14:52 IMPRESSION: No acute abnormality is seen. Electronically Signed: Snaya Jacome MD at 15:25 EDT , Physical Exam Const alert and no apparent distress HEENT head/scalp atraumatic Resp normal respiratory effort, no retractions, no use of accessory muscles and clear to auscultation bilaterally Cardio regular rate, regular rhythm, S1 normal heart sound and S2 normal heart sound GI normal to inspection, nondistended, normoactive bowel sounds, soft to palpation, non-tender and non-distended Extremity normal to inspection and full ROM Neuro Sensorium / Orientation: awake and alert Assessment & Plan Assessment/Plan (1) Rhabdomyolysis: PLAN: Plan Adult FTT * PT/OT/case management consulted for discharge planning. Acute mild rhabdomyolysis: * Admission total creatinine kinase very mildly elevated 832, improved to 350. * 2/2 fall. From the patient's description, it does not sound like a seizure. * Conintue gabapentin & phenobarbital home regimen * PRN ativan, fall precautions concurrently. Chronic conditions: * Chronic Polycythemia: Admission hemoglobin 18.5, baseline appears primarily 17-18, does chronically smoke, no overt diagnosis noted in medical history, will continue to trend CBC. * CAD: Status post PCI, will continue aspirin, Plavix given CT head and cervical spine with no acute findings, additionally will continue statin, clarifying but recurrent list does not appear to be on beta-radha therapy or ТАТЬЯНА inhibitor/ARB. * Hypertension: Continue home regimen including isosorbide, PRN hydralazine. * Hyperlipidemia: Given mild rhabdo with discomfort we will temporally hold home statin therapy. * Chronic COPD with allergic rhinitis: Will maintain on oxygen with wean as tolerated to room air, continue ATC budesonide therapy, PRN albuterol, HOB, IS parameters, continue patient home montelukast home regimen. * Chronic Kidney Disease Stage III, unclear subtype: Admission BUN/Cr 20/1.53, GFR 47, baseline renal function primarily 1.4-1.6, repeat BMP in AM. * History prostate cancer: Status post TURP, from current medication list does not appear to be on chronic regimen but clarifying, encourage continued outpatient follow-up with urology as previously arranged. * PTSD: Clarifying but if appropriate no concern for sedation we will continue patient home diazepam regimen to avoid withdrawal especially. * Glaucoma: We will continue patient home eyedrop regimen. * GERD: Per current list not on regimen, clarifying, will have as needed Mylanta. * BPH: Patient on CT imaging does have enlarged prostate, not on any chronic regimen per current list but clarifying, encourage continued outpatient follo w-up with urology. DVT prophylaxis: Heparin. CODE status: Full Charges/Coding Visit Charges Inpatient E&M: 30331 Subs Hosp L2
[2023-06-23 07:45] LABS: AST(SGOT) 23 U/L (15-37); Alanine Aminotransfer ALT/SGPT 25 U/L (16-61); Alkaline Phosphatase 71 U/L (45-117); Anion Gap 3 (5-15); BUN 21 mg/dL (7-18); BUN/Creat Ratio 17.1 RATIO (10-20); CPK Total, Creatine Kinase 350 U/L (39-308); Calcium,Total 7.2 mg/dL (8.5-10.1); Chloride 107 mmol/L (98-107); Creatinine, Serum 1.23 mg/dL (0.70-1.30); EST Glomerular Filtration Rate 61 mL/min (>60); Est Glom Filt Rate - Afr Amer 74 mL/min (>60); Estimated Creatinine Clearance 58.92 ml/min; Globulin 2.9 g/dL (2.2-4.2); Glucose 91 mg/dL (74-106); Potassium 3.8 mmol/L (3.5-5.1); Protein, Total 5.9 g/dL (6.4-8.2); Sodium Level 138 mmol/L (136-145)
[2023-06-23] MEDS: Phenobarbital 32.4 MG Tablet PO ×3 (07:55→17:58)
[2023-06-23] MEDS: Aspirin 81 MG TAB.CHEW PO (07:55)
--- NOTE | 2023-06-23 09:20 | NURSING ---
into room as knitter operator states pt called out stating needed his diazepam or he's going to have a seizure. into talk with patient. discussed when he takes his diazepam. discussed already had his diazepam. pt states he's having tremors and that along with changes in is vision of seeing colors is his precurser to having tonic clonic seizures. discussed his phenobarb. pt is unable to give a clear way he takes his phenobarb as confusion noted. PCPs office called and requested send home med list Stat. marketing secretary notified. pt then starts clenching his first. appears to spit, hold his breath with face turning red and not responding to visual stimuli. charge nurse called to room while this nurse went to pull lorazepam as unable to determine if this was behavioral or true seizure like activity. when this nurse returned from med room pt speaking clearly without any previous behavior. obtained med list and discussed with charge nurse transfer and pumphouse operator chief and patient regarding phenobarb and how patient is actually taking it. home med list updated.
[2023-06-23] MEDS: Menthol/Lanolin/Calamine/Znox 113 GM Tube 1 APPLIC TOPICAL ×4 (10:05→21:37)
[2023-06-23] MEDS: Nystatin Powder 15gm Bottle 1 APPLIC TOPICAL ×2 (10:06→21:37)
[2023-06-23] MEDS: Heparin Injection (Vial) 5,000 UNIT/ML VIAL 5000 UNIT SC ×2 (10:06→21:38)
[2023-06-23] MEDS: Isosorbide DN 30 MG Tablet PO (10:06)
[2023-06-23] MEDS: Clopidogrel Bisulfate 75 MG Tablet PO (10:06)
[2023-06-23] MEDS: Phenobarbital 32.4 MG Tablet 64.8 MG PO ×2 (10:09→21:38)
[2023-06-23] MEDS: Montelukast 10 MG Tablet PO (10:09)
[2023-06-23 11:29] LABS: Pathologist Review Reviewed
[2023-06-23] MEDS: Timolol 0.5% 5ML OPTH.BTL 1 DRP OPHTHALMIC ×2 (11:31→21:37)
--- NOTE | 2023-06-23 12:40 | CASEMGMT ---
RN?CM?CARTRIDGE LOADER?CM?to room to meet with patient for initial transition planning/care coordination?assessment.?RN?CM?introduced self and role at [facility].? Pt voices understanding and consents to?assessment?at this time.? Pt resting in bed in no distress at this time.? Pt is A/O at this time and answers all questions appropriately.?? Care providers, pharmacy, and demographics verified/updated at this time. PCP: Dr Elijah Mullins. Pt also goes to [place] Specialists: QUINN/cardiology, Dr Hankins-Lindy tripathi--chiropractor Preferred Pharmacy: [facility] Retail Insurance: [place], [facility], [facility], [employer] Prescription Benefit:?Yes Living Will/HPOA:? Pt does not currently have LW/HCPOA and would like to complete. He would like his brother, Jemal, to be his POA. LAVERNE Knight, made aware. LNOK: Brother, Jemal. Pt has 2 other brothers and 2 sisters. Living Arrangements: Lives alone in one-story home w/no steps to enter. Pt has PHONE OPERATOR through the [place] that assists w/bathing and dressing, over-sees pt setting up his weekly medications, and assists w/IADL's. He states he has been approved for PHONE OPERATOR 5 days/week, but currently only availability is 2 days/week, Thu and Thu. He would like for PHONE OPERATOR to knot picker cloth his medications at the pharmacy, but states he was informed that the agency the PHONE OPERATOR works for does not allow this. He really likes his aid, Mattie, that comes on Fridays but he would like to see if her day can be changed to Thursday's instead. Pt reports that Mattie did not show up to his home on Thursday and he is not sure why. Antonia GALLOWAY, and Lulu DOMINGUEZ made aware of same. Transportation:?Pt states he still drives. He states he would like to use [facility] transportation at discharge but he is not sure if can get in/out of vehicle on his own. He also states he could see if his nephew, Medardo, or friend, Oscar, can take him home. DME: States has the following DME:?)2 thru [facility] @ 2l/m @ HS and when he naps. He has a concentrator only. No portability. He also has a shower chair, TSR, and rollator. ?Pt states no need for further DME at this time.? HHC/SNF: Pt has been to [facility] in the past. He states there is an RN that comes from [place] [facility] 2 weeks to check VS's and she gives him a testosterone injection. Discussed discharge plan. When SAVAGE DOMINGUEZ asked if he feels he would benefit from going to a SNF, he states, No. I'm good. He states he wishes to discharge home and feels he will be safe @ home. He would like HHC and would like therapy. His 1st preference is [facility] HHC and declines wanting list of other HHC options unless [facility]. Lulu, SAVAGE DOMINGUEZ, made aware. Pt wishes to return home and states has no further concerns with going home at time of discharge.? CM?to follow for home oxygen needs and any further discharge planning/needs.? Pt voices no further concerns/needs at this time.? Advised pt to ask for?CM?if any further questions/concerns/needs arise.? Voices understanding. PLAN:??Home w/HHC for SN, PT/OT, and an aide, if available, and resumption of PHONE OPERATOR's. Bradny ROSALES?RN?ANGELICA
[2023-06-23] MEDS: traZODone 100 MG Tablet PO (21:38)
[2023-06-23] MEDS: Gabapentin 100 MG Capsule 200 MG PO (21:38)
[2023-06-24] VITALS (9 sets, daily range): BP systolic 110–148; BP diastolic 57–90; PULSE 56–71; RESP 14–18; TEMP 36.7–37.1; O2SAT 94–99; BMI 28.8
[2023-06-24] MEDS: diazePAM 5 MG Tablet 10 MG PO (05:10)
[2023-06-24] MEDS: Budesonide Respules 0.5 MG/2 ML AMPUL.NEB. INHALATION ×2 (06:48→19:55)
--- NOTE | 2023-06-24 07:32 | PN.HOSP_ITS ---
Reason for Visit Reason for Visit: Diagnoses Rhabdomyolysis (06/22/23) Subjective Subjective Complaining of diffuse pain. Objective Data Objective Data Vital Signs: Vital Signs Temp Pulse Resp BP Pulse Ox O2 Del Method O2 Flow Rate 36.8 C 60 18 129/62 H 94 Nasal Cannula 2 06/24/23 05:04 06/24/23 06:49 06/24/23 06:49 06/24/23 05:04 06/24/23 06:49 06/24/23 06:49 06/24/23 06:49 Oxygen Flow Rate (L/min) 2 Oxygen Delivery Method Nasal Cannula Weight: 91.2 kg Body Mass Index (BMI) 28.8 Intake & Output: Intake and Output for Last 24 Hours 06/22/23 06/23/23 06/24/23 23:59 23:59 23:59 Intake Total 2000 / 2600 2740 / 2990 550 / 550 Output Total 200 / 200 1400 / 1400 Balance 1999 / 2600 2540 / 2790 -850 / -850 Lab / Micro Data 06/23/23 06:24 06/23/23 06:24 Labs: Laboratory Results - last 24 hr 06/22/23 14:20: Diff Path Review Reviewed 06/23/23 06:24: Sodium 138, Potassium 3.8, Chloride 107, Carbon Dioxide 28.0, Anion Gap 3 L, BUN 21 H, Creatinine 1.23, Estim Creat Clear Calc 58.92, Est GFR (MDRD) Af Amer 74, Est GFR (MDRD) Non-Af 61, BUN/Creatinine Ratio 17.1, Glucose 91, Calcium 7.2 L, Total Bilirubin 0.50, AST 23, ALT 25, Alkaline Phosphatase 71, Total Creatine Kinase 350 H, Total Protein 5.9 L, Albumin 3.0 L, Globulin 2.9, Albumin/Globulin Ratio 1.0 Physical Exam Const alert and no apparent distress HEENT head/scalp atraumatic Resp normal respiratory effort, no retractions, no use of accessory muscles and clear to auscultation bilaterally Cardio regular rate, regular rhythm, S1 normal heart sound and S2 normal heart sound GI normal to inspection, nondistended, normoactive bowel sounds, soft to palpation, non-tender and non-distended Neuro Sensorium / Orientation: awake and alert Assessment & Plan Assessment/Plan (1) Rhabdomyolysis: PLAN: Plan Adult FTT * PT/OT/case management consulted for discharge planning. * Pt fell after awaking from night terror and reportedly was unable to get up for 4 days. Acute mild rhabdomyolysis: * Admission total creatinine kinase very mildly elevated 832, improved to 350. * 2/2 fall. From the patient's description, it does not sound like a seizure. * Conintue gabapentin & phenobarbital home regimen * PRN ativan, fall precautions concurrently. Chronic conditions: * Chronic Polycythemia: Admission hemoglobin 18.5, baseline appears primarily 17-18, does chronically smoke, no overt diagnosis noted in medical history, will continue to trend CBC. * CAD: Status post PCI, will continue aspirin, Plavix given CT head and cervical spine with no acute findings, additionally will continue statin, clarifying but recurrent list does not appear to be on beta-radha therapy or ТАТЬЯНА inhibitor/ARB. * Hypertension: Continue home regimen including isosorbide, PRN hydralazine. * Hyperlipidemia: Given mild rhabdo with discomfort we will temporally hold home statin therapy. * Chronic COPD with allergic rhinitis: Will maintain on oxygen with wean as tolerated to room air, continue ATC budesonide therapy, PRN albuterol, HOB, IS parameters, continue patient home montelukast home regimen. * Chronic Kidney Disease Stage III, unclear subtype: Admission BUN/Cr 20/1.53, GFR 47, baseline renal function primarily 1.4-1.6, repeat BMP in AM. * History prostate cancer: Status post TURP, from current medication list does not appear to be on chronic regimen but clarifying, encourage continued outpatient follow-up with urology as previously arranged. * PTSD: Clarifying but if appropriate no concern for sedation we will continue p atient home diazepam regimen to avoid withdrawal especially. * Glaucoma: We will continue patient home eyedrop regimen. * GERD: Per current list not on regimen, clarifying, will have as needed Mylanta. * BPH: Patient on CT imaging does have enlarged prostate, not on any chronic regimen per current list but clarifying, encourage continued outpatient follow-up with urology. DVT prophylaxis: Heparin. CODE status: Full Charges/Coding Visit Charges Inpatient E&M: 64410 Subs Hosp L2
[2023-06-24] MEDS: Phenobarbital 32.4 MG Tablet PO ×3 (08:17→17:57)
[2023-06-24] MEDS: Menthol/Lanolin/Calamine/Znox 113 GM Tube 1 APPLIC TOPICAL ×4 (08:17→20:33)
[2023-06-24] MEDS: Aspirin 81 MG TAB.CHEW PO (08:17)
[2023-06-24] MEDS: Heparin Injection (Vial) 5,000 UNIT/ML VIAL 5000 UNIT SC ×2 (08:18→20:34)
[2023-06-24] MEDS: Nystatin Powder 15gm Bottle 1 APPLIC TOPICAL ×2 (08:19→20:34)
[2023-06-24] MEDS: Isosorbide DN 30 MG Tablet PO (08:19)
[2023-06-24] MEDS: Montelukast 10 MG Tablet PO (08:20)
[2023-06-24] MEDS: Timolol 0.5% 5ML OPTH.BTL 1 DRP OPHTHALMIC ×2 (10:23→20:33)
[2023-06-24] MEDS: Phenobarbital 32.4 MG Tablet 64.8 MG PO ×2 (10:23→20:39)
[2023-06-24] MEDS: Clopidogrel Bisulfate 75 MG Tablet PO (10:23)
[2023-06-24] MEDS: CARBOXYMETHYLCELLULOSE SODIUM 1 DRP DROPS OPHTHALMIC (12:52)
--- NOTE | 2023-06-24 14:38 | CASEMGMT ---
Addendum entered by Ute Duncan 06/24/23 16:24: PT has worked w/pt today. Pt required max A of 1 to sit up, min A sit to stand, and CGA w/use of WW to ambulate and he was able to ambulate 190 '. SAVAGE DOMINGUEZ to room to discuss discharge plan. Pt states he continues to feel safe to return home and states he will be able to take care of himself and get OOB/chair on his own once he returns home. He is adamant he does not want to go to SNF. Pt reports having a medical alert button @ his home. He states he did not have it on him when he fell @ home, stating he had left it on the mangle roller and forgot to put it on. He states once he returns home he plans to wear it from now on. Per Cathryn @ [facility], they are not able to accept pt d/t no therapist available until next week. CM to f/u with pt tomorrow for [facility]. He will need list of other [facility] options. Brandy ROSALES RN, CM Original Note: SAVAGE DOMINGUEZ NOTE: Per OT note today, pt ambulated 100 ft w/CGA and use of FWW. PT has not worked w/pt today. Call placed to therapy to have PT work w/him today to ensure pt is safe to discharge home alone. Call placed to [facility] and referral made as requested by pt. Order has been placed for HHC: SN, PT/OT, and aide, if available. Per Dr Lemus, pt is medically ready for discharge today. Brandy ROSALES RN, CM
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
--- NOTE | 2023-06-24 16:12 | NURSING ---
All documentation by student nurse, Ira Haddad, reviewed by psychiatric nursing assistant, Fabiola NÚÑEZN, RN.
[2023-06-24] MEDS: traZODone 100 MG Tablet PO (20:34)
[2023-06-24] MEDS: Gabapentin 100 MG Capsule 200 MG PO (20:39)
[2023-06-25 01:30] VITALS: BMI 30.6
[2023-06-25 02:49] VITALS: BP 117/54; PULSE 64; RESP 18; TEMP 36.7; O2SAT 97
--- NOTE | 2023-06-25 07:39 | PCM.PN.HOSP ---
Reason for Visit Reason for Visit: Diagnoses Rhabdomyolysis (06/22/23) Subjective Subjective No new events. Feels ready to go home. Objective Data Objective Data Vital Signs: Vital Signs Temp Pulse Resp BP Pulse Ox O2 Del Method O2 Flow Rate 36.7 C 64 18 117/54 L 97 Nasal Cannula 2 06/25/23 02:49 06/25/23 02:49 06/25/23 02:49 06/25/23 02:49 06/25/23 02:49 06/25/23 02:56 06/25/23 02:56 Oxygen Flow Rate (L/min) 2 Oxygen Delivery Method Nasal Cannula Weight: 97 kg Body Mass Index (BMI) 30.6 Intake & Output: Intake and Output for Last 24 Hours 06/23/23 06/24/23 06/25/23 23:59 23:59 23:59 Intake Total 2740 / 2990 2050 / 3050 1600 / 1600 Output Total 200 / 200 1400 / 2750 2100 / 2100 Balance 2540 / 2790 650 / 300 -500 / -500 Lab / Micro Data 06/23/23 06:24 06/23/23 06:24 Physical Exam Const Constitutional Narrative: Demeanor. Flat affect. Picks up the phone with his home nurse and made no effort to try to get the phone with her while is present in the room. Did start becoming confrontational saying that he cannot drive and I told him he should not be driving if he is actively having seizures. Assessment & Plan Assessment/Plan (1) Rhabdomyolysis: PLAN: Plan Adult FTT PT/OT/case management consulted for discharge planning. Pt fell after awaking from night terror and reportedly was unable to get up for 4 days. Acute mild rhabdomyolysis: Admission total creatinine kinase very mildly elevated 832, improved to 350. 2 fall. From the patient's description, it does not sound like a seizure. Conintue gabapentin & phenobarbital home regimen PRN ativan, fall precautions concurrently. Seizure disorder Patient states that he knows of the seizures, because he has headache and starts shaking and is able to pull self over but states he does lose consciousness at times. Not sure if what he describing is having seizures but I did explain to him if he is losing consciousness that he should not get behind the wheel. He states that he has something from the [facility] that certifies him to be able to drive. I told the patient I am not aware of this certification by the [facility] but he would actually require a physician to authorize him to drive and I doubt there would be any reputable physician, neurologist internal medicine etc. that would authorize someone who is having seizures to actively drive. I told the patient that he should not drive. He states that he cannot because he has a sling from the [facility]. I told him I am concerned that either he is lying to me or he has been misled by someone's that states that he has something from the [facility] that authorized him to drive with an active seizure disorder. Whether or not he is actively having seizures or not but he is endorsing he is having loss of consciousness. That in itself is a reason for him not to drive. I told the patient that he should not get behind the wheel whatsoever and that if he were to cause an accident or injury that that may be possible by legal or possible other traditional means including snf. Chronic conditions: Chronic Polycythemia: Admission hemoglobin 18.5, baseline appears primarily 17-18, does chronically smoke, no overt diagnosis noted in medical history, will continue to trend CBC. CAD: Status post PCI, will continue aspirin, Plavix given CT head and cervical spine with no acute findings, additionally will continue statin, clarifying but recurrent list does not appear to be on beta-radha therapy or ТАТЬЯНА inhibitor/ARB. Hypertension: Continue home regimen including isosorbide, PRN hydralazine. Hyperlipidemia: Given mild rhabdo with discomfort we will temporally hold home statin therapy. Chronic COPD with allergic rhinitis: Will maintain on oxygen with wean as tolerated to room air, continue ATC budesonide therapy, PRN albuterol, HOB, IS parameters, continue patient home montelukast home regimen. Chronic Kidney Disease Stage III, unclear subtype: Admission BUN/Cr 20/1.53, GFR 47, baseline renal function primarily 1.4-1.6, repeat BMP in AM. History prostate cancer: Status post TURP, from current medication list does not appear to be on chronic regimen but clarifying, encourage continued outpatient follow-up with urology as previously arranged. PTSD: Clarifying but if appropriate no concern for sedation we will continue patient home diazepam regimen to avoid withdrawal especially. Glaucoma: We will continue patient home eyedrop regimen. GERD: Per current list not on regimen, clarifying, will have as needed Mylanta. BPH: Patient on CT imaging does have enlarged prostate, not on any chronic regimen per current list but clarifying, encourage continued outpatient follow-up with urology. DVT prophylaxis: Heparin. CODE status: Full
[2023-06-25 07:44] VITALS: PULSE 56; RESP 18; O2SAT 94
[2023-06-25] MEDS: Budesonide Respules 0.5 MG/2 ML AMPUL.NEB. INHALATION (07:44)
[2023-06-25 07:55] VITALS: O2SAT 93
[2023-06-25 08:59] VITALS: BP 145/71; PULSE 57; RESP 20; TEMP 36.7; O2SAT 96
[2023-06-25 09:01] VITALS: PULSE 60
[2023-06-25] MEDS: Montelukast 10 MG Tablet PO (09:34)
[2023-06-25] MEDS: Phenobarbital 32.4 MG Tablet PO ×2 (09:34→13:09)
[2023-06-25] MEDS: Heparin Injection (Vial) 5,000 UNIT/ML VIAL 5000 UNIT SC (09:35)
[2023-06-25] MEDS: Clopidogrel Bisulfate 75 MG Tablet PO (09:35)
[2023-06-25] MEDS: Aspirin 81 MG TAB.CHEW PO (09:37)
[2023-06-25] MEDS: Timolol 0.5% 5ML OPTH.BTL 1 DRP OPHTHALMIC (09:37)
[2023-06-25] MEDS: Phenobarbital 32.4 MG Tablet 64.8 MG PO (10:48)
[2023-06-25] MEDS: Nystatin Powder 15gm Bottle 1 APPLIC TOPICAL (10:48)
[2023-06-25] MEDS: Menthol/Lanolin/Calamine/Znox 113 GM Tube 1 APPLIC TOPICAL (10:48)
[2023-06-25] MEDS: Isosorbide DN 30 MG Tablet PO (10:49)
--- NOTE | 2023-06-25 11:17 | PCM.DC.SUM ---
Providers Date of Admission: 06/22/23 Primary Care Physician: Dr. Elijah Mullins, DO Reason For Visit: FALL, MILD RHABDO, SEIZURE Diagnosis Discharge Diagnosis (1) Rhabdomyolysis: Status: Acute Code(s): M62.82 - Rhabdomyolysis Plan Adult FTT PT/OT/case management consulted for discharge planning. Pt fell after awaking from night terror and reportedly was unable to get up for 4 days. Acute mild rhabdomyolysis: Admission total creatinine kinase very mildly elevated 832, improved to 350. 2/ fall. From the patient's description, it does not sound like a seizure. Conintue gabapentin & phenobarbital home regimen PRN ativan, fall precautions concurrently. Seizure disorder Patient states that he knows of the seizures, because he has headache and starts shaking and is able to pull self over but states he does lose consciousness at times. Not sure if what he describing is having seizures but I did explain to him if he is losing consciousness that he should not get behind the wheel. He states that he has something from the [facility] that certifies him to be able to drive. I told the patient I am not aware of this certification by the [facility] but he would actually require a physician to authorize him to drive and I doubt there would be any reputable physician, neurologist internal medicine etc. that would authorize someone who is having seizures to actively drive. I told the patient that he should not drive. He states that he cannot because he has a sling from the [facility]. I told him I am concerned that either he is lying to me or he has been misled by someone's that states that he has something from the [facility] that authorized him to drive with an active seizure disorder. Whether or not he is actively having seizures or not but he is endorsing he is having loss of consciousness. That in itself is a reason for him not to drive. I told the patient that he should not get behind the wheel whatsoever and that if he were to cause an accident or injury that that may be possible by legal or possible other traditional means including jail. Chronic conditions: Chronic Polycythemia: Admission hemoglobin 18.5, baseline appears primarily 17-18, does chronically smoke, no overt diagnosis noted in medical history, will continue to trend CBC. CAD: Status post PCI, will continue aspirin, Plavix given CT head and cervical spine with no acute findings, additionally will continue statin, clarifying but recurrent list does not appear to be on beta-radha therapy or ТАТЬЯНА inhibitor/ARB. Hypertension: Continue home regimen including isosorbide, PRN hydralazine. Hyperlipidemia: Given mild rhabdo with discomfort we will temporally hold home statin therapy. Chronic COPD with allergic rhinitis: Will maintain on oxygen with wean as tolerated to room air, continue ATC budesonide therapy, PRN albuterol, HOB, IS parameters, continue patient home montelukast home regimen. Chronic Kidney Disease Stage III, unclear subtype: Admission BUN/Cr 20/1.53, GFR 47, baseline renal function primarily 1.4-1.6, repeat BMP in AM. History prostate cancer: Status post TURP, from current medication list does not appear to be on chronic regimen but clarifying, encourage continued outpatient follow-up with urology as previously arranged. PTSD: Clarifying but if appropriate no concern for sedation we will continue patient home diazepam regimen to avoid withdrawal especially. Glaucoma: We will continue patient home eyedrop regimen. GERD: Per current list not on regimen, clarifying, will have as needed Mylanta. BPH: Patient on CT imaging does have enlarged prostate, not on any chronic regimen per current list but clarifying, encourage continued outpatient follow-up with urology. DVT prophylaxis: Heparin. CODE status: Full Medications at Discharge Home Medications clopidogrel 75 mg tablet 75 mg PO DAILY ANTIPLATELET 03/03/14 aspirin 81 mg chewable tablet 81 mg PO DAILY@0800 HEART HEALTH 05/04/14 omega-3 fatty acids-fish oil 684 mg-1,200 mg capsule,delayed release 1 ea PO DAILY cholesterol 05/04/14 ascorbic acid (vitamin C) 500 mg tablet 500 mg PO DAILY@0800 SUPPLEMENT 04/03/15 trazodone 100 mg tablet 100 mg PO QHS MENTAL HEALTH/SLEEP 04/03/15 epinephrine 0.3 mg/0.3 mL injection, auto-injector 0.3 mg IM X1 PRN allergy 02/11/16 albuterol sulfate 90 mcg/actuation aerosol inhaler (ProAir HFA) 2 puff inhalation Q4H PRN shortness of breath or wheezing 03/05/17 isosorbide dinitrate 30 mg tablet 30 mg PO DAILY heart 01/07/18 simvastatin 20 mg tablet 20 mg PO QHS 02/13/18 cholecalciferol (vitamin D3) 50 mcg (2,000 unit) capsule 2,000 unit PO DAILY 05/26/19 phenobarbital 32.4 mg tablet 32.4 mg PO TID SEIZURES 05/26/19 mecobalamin (vitamin B12) 10,000 mcg solution for injection 10,000 mcg IM .q 2 weeks 01/18/21 phenobarbital 64.8 mg tablet 64.8 mg PO BID seizures 01/18/21 nitroglycerin 0.4 mg sublingual tablet 0.4 mg sublingual Q5M PRN Chest Pain #25 tabs 10/07/21 gabapentin 100 mg capsule 200 mg PO QHS 02/02/23 montelukast 10 mg tablet 10 mg PO DAILY PRN 02/02/23 cyclosporine 0.05 % eye drops in a dropperette (Restasis) 1 drp ophthalmic (eye) BID 06/22/23 netarsudil 0.02 % eye drops (Rhopressa) 1 drp LEFT EYE DAILY 06/22/23 olopatadine 0.1 % eye drops 1 drp ophthalmic (eye) BID 06/22/23 testosterone enanthate 200 mg/mL intramuscular oil 200 mg IM UD 06/22/23 timolol maleate 0.5 % eye drops 1 drp ophthalmic (eye) BID 06/22/23 diazepam 10 mg tablet 10 mg PO BID PRN seizure activity #1 TAB 06/25/23 Hospital Course Operations None Procedures None Summary of Care Provided Minutes Spent on Discharge: 45 Hospital Course: Patient was found on the floor in his house. Patient stated that he woke from a night terror and fell to the ground was unable to get up. There was Some concern initially that he had a seizure but the patient did not report that to me. Patient has mild rhabdo with CPK of 800 but that did resolve with IV fluids. Anticipation was the patient go to a detention facility but he actually did pretty well with therapy so the plan is for him to go home with home care. Patient has reported history of seizures which she is on gabapentin as well as phenobarbital for as well as as needed diazepam. Patient states that he gets these spells where he gets headache and starts tremoring is able to pull self over and then occasionally will lose consciousness but many times he does not lose consciousness. I question if he does have an underlying seizure disorder given his description or released these events that he is describing are possibly not seizures. Patient states that he has a card from the [facility] that states that he is authorized to drive. I told the patient directly that that is highly unlikely as I have never encountered any physician signing off on any patient with seizure disorder who is actively having events to be able to drive. But he states that he has it from the [facility] prescribed to be [facility]. I think that is highly suspected and I am concerned the patient may be fabricating that information. I did address this directly also with the patient that he may be either making this up or he has been misled by someone that this is actually a legitimate card. He did become very confrontational saying that he can drive and I told him that he if he were to cause an accident or an injury that he could either [facility] or possibly even go to snf. He was dismissive of that though he did express understanding. So would be concerned if patient does have some ulterior motives regards to getting things such as diazepam the same that he is having seizures so that he can prescribe that. I do recommend that the diazepam being to weaned off as he has a very poor performance status at baseline and that medication is risky. I have delineated that on his discharge MAR. Weight / BMI Weight Weight: 97 kg Body Mass Index (BMI) 30.6 ABG / Lab / Microbiology Data 06/23/23 06:24 06/23/23 06:24 D/C Instructions Discharge Diet: Low fat / Low cholesterol Discharge Activity: May Not Drive Meaningful Use Info Meaningful Use Meaningful Use Diagnoses (Choose all that apply): None applicable Ischemic Stroke Statin Dosing Therapy Reference: STATIN DOSE THERAPY REFERENCE: * Patients > 75 years receive moderate or high dose statin therapy. * Patients 75 years or YOUNGER should receive HIGH intensity statin dose unless contraindicated. You will be required to document reason for non-treatment if statin daily dose does not meet guidelines. HIGH DOSE STATIN THERAPY DAILY Atorvastatin > than or = to 40 mg Rosuvastatin > than or = to 20 mg Amlodipine + Atorvastatin > than or = to 2.5/40 mg Ezetimibe + Simvastatin 10/80 mg Simvastatin 80mg Discharge Plan Admission Admit Date/Time: 06/22/23 16:32 Primary Reason for Your Visit: Weakness Attending Provider: John Lemus Primary Care Provider: Elijah Mullins Consulting Providers: Irlanda Ruiz Instructions Additional Instructions / Restrictions: You presented with weakness with reported being on the floor anywhere from 4 to 5 days. Your courses here was pretty uncomplicated. He did receive some IV fluids but seem to be responding well since then. You tell me that you have seizures which where you started headache and tremor but are able to pull her self off the road. And you did mention that on several occasions that you do lose consciousness. Was not you are having seizures but if you are lose consciousness this is actually a contraindication to driving and you should not drive for at least 6 months until you are event free. If you continue to drive you pose a risk to yourself as well as others. Discharge Orders/Prescriptions Prescriptions: Continued albuterol sulfate [ProAir HFA] 90 mcg/actuation HFA aerosol inhaler 2 puff INHALATION Q4H PRN (Reason: shortness of breath or wheezing) mecobalamin (vitamin B12) 10,000 mcg recon soln 10,000 mcg IM .q 2 weeks clopidogrel 75 MG tablet 75 mg PO DAILY Patient Comments: Blood thinner aspirin 81 MG tablet,chewable 81 mg PO DAILY@0800 Patient Comments: Blood thinner for heart health omega-3 fatty acids-fish oil 1 EACH capsule,delayed release(DR/EC) 1 ea PO DAILY Patient Comments: Supplement trazodone 100 MG tablet 100 mg PO QHS Patient Comments: Sleep ascorbic acid (vitamin C) 500 MG tablet 500 mg PO DAILY@0800 Patient Comments: Supplement epinephrine 0.3 MG syringe 0.3 mg IM X1 PRN (Reason: allergy) isosorbide dinitrate 30 MG tablet 30 mg PO DAILY simvastatin 20 MG tablet 20 mg PO QHS phenobarbital 64.8 mg tablet 64.8 mg PO BID Rx Instructions: with 32.4mg cholecalciferol (vitamin D3) 2,000 UNIT capsule 2,000 unit PO DAILY phenobarbital 32.4 MG tablet 32.4 mg PO TID gabapentin 100 mg capsule 200 mg PO QHS Patient Comments: TAKE 2 CAPSULES BY MOUTH ONCE DAILY AT BEDTIME montelukast 10 mg tablet 10 mg PO DAILY PRN Patient Comments: take 1 tablet by mouth once daily olopatadine 0.1 % drops 1 drp ophthalmic (eye) BID testosterone enanthate 200 mg/mL oil 200 mg IM UD Rx Instructions: Q2W timolol maleate 0.5 % drops 1 drp ophthalmic (eye) BID cyclosporine [Restasis] 0.05 % dropperette 1 drp ophthalmic (eye) BID Rhopressa 0.02 % drops 1 drp LEFT EYE DAILY nitroglycerin 0.4 mg tablet, sublingual 0.4 mg SUBLINGUAL Q5M PRN (Reason: Chest Pain) Qty: 25 6RF Changed diazepam 10 MG tablet 10 mg PO BID PRN (Reason: seizure activity) Qty: 1 0RF Rx Instructions: 2 tabs as needed twice daily for 1 week, then 1 tab daily as needed for 1 week, then half a tab daily as needed for 1 week, then half a tab every other day as needed for 1 week, then half a tab every 3 days as needed for 1 week then stop. Discontinued oxycodone 10 mg tablet 10 mg PO TID PRN (Reason: Pain 1-10 Or Fever) Referrals / Follow Up: Elijah Mullins DO [Primary Care Provider] - Within 2 Weeks Disposition Disposition (needs filled in before D/C Order can be placed): Home Health Service Charges/Coding Visit Charges Inpatient E&M: 97744 Disch Hosp >30min
--- NOTE | 2023-06-25 11:44 | CASEMGMT ---
Addendum entered by Apryl Zapata 06/25/23 12:19: Copies of directives provided to pt and placed in chart following verification of address of alternate agent. Original Note: Social Work- Otto and LAVERNE Chapa met with pt to assist with completion of advanced directives. Pt named brother, Surya Shine, primary agent. A voicemail was left with alternate agent, nephew, Junior Barros, to verify address. Pt will be given copies when address verified.
--- NOTE | 2023-06-25 11:45 | CASEMGMT ---
Addendum entered by Lulu Ayers 06/25/23 15:39: Received tc back from Abisai at [place], he states the pt aide is not through them. He states they provide weekly SN visits for med set up. He is aware that pt needs therapy at this time. He states they do not provide therapy. He is aware that pt was set up with [facility] for SN, PT, OT and [employer]STRUCTION [employer]ER. Addendum entered by Lluu Ayers 06/25/23 15:33: Received tc from [facility], he is aware of pt dc plans. He states he will notify pt PCP at [facility] to make aware. He has received clinicals. Addendum entered by Lulu Ayers 06/25/23 15:06: TC to [facility] to update on services set up for pt. Received vm and left call back information. TC to [facility], left message to return call as well. Addendum entered by Lulu Ayers 06/25/23 14:59: [facility] unable to accept pt. [facility] is able to accept pt. SAVAGE DOMINGUEZ into pt room, pt aware of this. He is agreeable to [facility]. Pt states his aide Deja is going to transport him home. He denies further needs at this time. Addendum entered by Lulu Ayers 06/25/23 13:20: SAVAGE DOMINGUEZ Spoke with pt to discuss alternative options for HH. Agreed to send referral to rest of agencies on list to determine who will accept. Referral sent at this time . Addendum entered by Lulu Ayers 06/25/23 13:14: [facility] and are unable to see pt for care. Addendum entered by Lulu Ayers 06/25/23 12:06: Referral sent via [facility] to [facility] and . Will await response. Original Note: SAVAGE DOMINGUEZ into pt room. Pt sitting up in chair eating lunch, no distress. Patient was provided a list of [facility] providers including quality and resource use data and consistent with the patient?s preferred geographic region, medical needs, and insurance network were provided from the CarePort Guide. Pt. chose [facility] as first choice and Home Care services for second choice.
--- NOTE | 2023-06-25 13:20 | PHA.DC.MR.R ---
Pharmacy MD Med Reconciliation Pharmacy Service has performed discharge medication reconciliation for this patient. No new medications at time of discharge medication review. Medications reviewed are from previously reported home medications. The patient's discharge medication list was reviewed for discrepancies and discrepancies were resolved. Medications at Discharge Home Medications clopidogrel 75 mg tablet 75 mg PO DAILY ANTIPLATELET 03/03/14 aspirin 81 mg chewable tablet 81 mg PO DAILY@0800 HEART HEALTH 05/04/14 omega-3 fatty acids-fish oil 684 mg-1,200 mg capsule,delayed release 1 ea PO DAILY cholesterol 05/04/14 ascorbic acid (vitamin C) 500 mg tablet 500 mg PO DAILY@0800 SUPPLEMENT 04/03/15 trazodone 100 mg tablet 100 mg PO QHS MENTAL HEALTH/SLEEP 04/03/15 epinephrine 0.3 mg/0.3 mL injection, auto-injector 0.3 mg IM X1 PRN allergy 02/11/16 albuterol sulfate 90 mcg/actuation aerosol inhaler (ProAir HFA) 2 puff inhalation Q4H PRN shortness of breath or wheezing 03/05/17 isosorbide dinitrate 30 mg tablet 30 mg PO DAILY heart 01/07/18 simvastatin 20 mg tablet 20 mg PO QHS 02/13/18 cholecalciferol (vitamin D3) 50 mcg (2,000 unit) capsule 2,000 unit PO DAILY 05/26/19 phenobarbital 32.4 mg tablet 32.4 mg PO TID SEIZURES 05/26/19 mecobalamin (vitamin B12) 10,000 mcg solution for injection 10,000 mcg IM .q 2 weeks 01/18/21 phenobarbital 64.8 mg tablet 64.8 mg PO BID seizures 01/18/21 nitroglycerin 0.4 mg sublingual tablet 0.4 mg sublingual Q5M PRN Chest Pain #25 tabs 10/07/21 gabapentin 100 mg capsule 200 mg PO QHS 02/02/23 montelukast 10 mg tablet 10 mg PO DAILY PRN 02/02/23 cyclosporine 0.05 % eye drops in a dropperette (Restasis) 1 drp ophthalmic (eye) BID 06/22/23 netarsudil 0.02 % eye drops (Rhopressa) 1 drp LEFT EYE DAILY 06/22/23 olopatadine 0.1 % eye drops 1 drp ophthalmic (eye) BID 06/22/23 testosterone enanthate 200 mg/mL intramuscular oil 200 mg IM UD 06/22/23 timolol maleate 0.5 % eye drops 1 drp ophthalmic (eye) BID 06/22/23 diazepam 10 mg tablet 10 mg PO BID PRN seizure activity #1 TAB 06/25/23
--- NOTE | 2023-06-25 14:38 | CHAPLAIN ---
Type of Pastoral Visit _x__ Initial Visit ___ Follow-up Visit ___ On-call Visit ___ General Patient Visit ___ Spiritual Assessment ___ Family Conference ___ Bereavement ___ Rapid Response ___ Code Blue ___ Other (describe below) Pastoral Care Referral From _x__ Patient ___ Family ___ Nurse ___ Physician ___ Insurance Appraiser ___ Automotive Parts Coordinator ___ Other (describe below) Sacrament/Intervention _x__ Active listening ___ Anointing ___ Muslim ___ Bereavement ___ Communion _x__ Lindy exploration ___ _x__ Life review _x__ Prayer ___ Reconciliation ___ Sacrament of Sick _x__ Supportive presence ___ Wedding ___ Other (describe below) Pastoral Comments patient is welcoming and talkative; pt is quite vocal about his thoughts, his experience, and his five days on the floor at home before he was found; pt is loud and expressive at times but also able to ask for prayer about his temper and his healing of body; pt is a ; pt given time and presence for support
[2023-06-25 14:42] VITALS: BP 115/71; PULSE 66; RESP 18; TEMP 37; O2SAT 98
== END 2023-06-25 16:25 | disposition home health service (06) | DRG 558 ==
LOC: ED 17:31 → MS3 18:30
PROVIDERS: Admitting Provider Family Medicine; Emergency Provider Student in an Organized Health Care Education/Training Program; PCP Family Medicine
DX: M62.82 Rhabdomyolysis (principal); R62.7 Adult failure to thrive; S09.90XA Unspecified injury of head, initial encounter; G40.909 Epilepsy, unspecified, not intractable, without status epilepticus; N18.30 Chronic kidney disease, stage 3 unspecified; J44.9 Chronic obstructive pulmonary disease, unspecified; I12.9 Hypertensive chronic kidney disease with stage 1 through stage 4 chronic kidney disease, or unspecified chronic kidney disease; E78.5 Hyperlipidemia, unspecified; D75.1 Secondary polycythemia; I25.10 Atherosclerotic heart disease of native coronary artery without angina pectoris; J30.9 Allergic rhinitis, unspecified; K21.9 Gastro-esophageal reflux disease without esophagitis; S90.811A Abrasion, right foot, initial encounter; S90.812A Abrasion, left foot, initial encounter; S80.811A Abrasion, right lower leg, initial encounter; S80.812A Abrasion, left lower leg, initial encounter; F17.200 Nicotine dependence, unspecified, uncomplicated; W19.XXXA Unspecified fall, initial encounter; Y92.009 Unspecified place in unspecified non-institutional (private) residence as the place of occurrence of the external cause; H40.9 Unspecified glaucoma; Z68.28 Body mass index [BMI] 28.0-28.9, adult; R53.81 Other malaise; F43.10 Post-traumatic stress disorder, unspecified; Z79.02 Long term (current) use of antithrombotics/antiplatelets; Z79.82 Long term (current) use of aspirin; Z79.899 Other long term (current) drug therapy; Z85.46 Personal history of malignant neoplasm of prostate; Z95.5 Presence of coronary angioplasty implant and graft
CPT/HCPCS: 36415; 70450; 71250; 72125; 74176; 80048; 80053; 80184; 80320; 81001; 82550; 83735; 84100; 84484; 85025; 85610; 93005; 94640; 97162; 97166; 97530; 97535; 99285; J7030; G0480

== ENCOUNTER 2023-06-25 19:16 | Inpatient (IN) | payer OTHER, SELFPAY ==
[2023-06-25 19:16] VITALS: BP 168/76; PULSE 79; RESP 18; TEMP 36.7; O2SAT 94
--- NOTE | 2023-06-25 19:22 | ED.RN ---
Per EMS patient is not safe at home alone. EMS was out for frequent falls today, patient is not able to get himself off the floor. EMS reports house is cluttered and a mess. Patient does have home health aides, but they are not there 29/09. EMS concerned for patient safety and suggests that patient needs to be admitted due to inability to care for self. This nurse attempted to reach Adult Protective Services and dispatch reported at this time there is not an bus driver/monitorcall center supervisor. Social work consult to be added per ER physician Dr. Friend.
[2023-06-25 20:47] VITALS: O2SAT 95
--- NOTE | 2023-06-25 20:51 | ED.RN ---
Pt has various skin tears and abrasions from previous falls. Pt states none of these injuries are from current fall. Insists only injured back during this fall.
[2023-06-25 21:16] VITALS: BP 178/89; PULSE 78; RESP 14; O2SAT 96
--- NOTE | 2023-06-25 21:20 | RAD_ITS ---
STUDY: X-RAY CHEST REASON FOR EXAM: Male, 73 years old. Trauma TECHNIQUE: AP portable COMPARISON: None. FINDINGS: There is less than optimal inspiratory effort however the lungs are clear.. There is no demonstrated pleural abnormality. Normal size heart. Normal mediastinum and orion. Normal visualized pulmonary arteries. Normal visualized aortic arch and descending thoracic aorta. Dorsal spine demonstrates degenerative change. Normal visualized clavicles, and shoulders. Old healed left rib fracture. There is no demonstrated abnormality of the visualized soft tissue structures of the upper abdomen. RAD/Chest 1 View (Portable) IMPRESSION: Diminished inspiratory effort but no acute cardiopulmonary pathology Electronically Signed: Ti Langston MD at 21:39 EDT ,
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
[2023-06-25 21:58] VITALS: BP 162/78; PULSE 73; RESP 16; O2SAT 95
[2023-06-25 22:54] LABS: Absolute Lymphocyte Count 0.94 X10^3/uL (0.83-4.51); Absolute Neutrophil Count 6.5 X10^3/uL (2.0-7.7); Basophil# 0.09 X10^3/uL; Eosinophils% 3.3 % (0-5); Hematocrit 50.3 % (40-54); Hemoglobin 16.1 g/dL (13.0-16.5); Lymphocyte # 0.94 X10^3/ul (0.83-4.51); Lymphocyte % 10.3 % (19-41); Mean Corpuscular Hgb 32.5 pg (27.0-32.0); Mean Corpuscular Volume 101.6 fL (80-94); Mean Platelet Vol. 10.6 fl (6.2-12.0); Monocyte# 0.98 X10^3/uL; Monocyte% 10.8 % (0-10); NRBC Flagged by Analyzer 0 % (0-5); Neutrophil # 6.51 X10^3/uL (2.7-7.7); Neutrophil % 71.4 % (47-70); Platelet Count 157 K/mm3 (150-450); RBC Distribution Width CV 13.2 % (11.6-14.6); RBC Distribution Width SD 49.4 fl (35.1-43.9); Red Blood Count 4.95 M/mm3 (4.6-6.2); White Blood Count 9.1 K/mm3 (4.4-11.0)
[2023-06-25 22:59] VITALS: BP 148/78; PULSE 72; RESP 16; TEMP 36.3; O2SAT 97
[2023-06-25 23:09] LABS: Anion Gap 5 (5-15); BUN 20 mg/dL (7-18); BUN/Creat Ratio 16.8 RATIO (10-20); CPK Total, Creatine Kinase 387 U/L (39-308); Calcium,Total 8.9 mg/dL (8.5-10.1); Chloride 104 mmol/L (98-107); Creatinine, Serum 1.19 mg/dL (0.70-1.30); EST Glomerular Filtration Rate 63 mL/min (>60); Est Glom Filt Rate - Afr Amer 77 mL/min (>60); Glucose 121 mg/dL (74-106); Potassium 4.8 mmol/L (3.5-5.1); Sodium Level 138 mmol/L (136-145)
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
[2023-06-26] VITALS (12 sets, daily range): BP systolic 111–174; BP diastolic 56–99; PULSE 70–80; RESP 16–26; TEMP 36.8–37.3; O2SAT 92–100
[2023-06-26] MEDS: 0.9% Normal Saline (1000mL) 1,000 ML 75 ML IV (01:12)
[2023-06-26] MEDS: Phenobarbital 32.4 MG Tablet 64.8 MG PO ×2 (05:43→21:00)
[2023-06-26] MEDS: Phenobarbital 32.4 MG Tablet PO ×3 (05:43→21:00)
[2023-06-26] MEDS: oxyCODONE 5 MG Tablet 10 MG PO ×3 (05:43→21:00)
[2023-06-26] MEDS: CLARIFY ORDER 1 EACH NOTE (05:44)
--- NOTE | 2023-06-26 07:27 | PN.HOSP_ITS ---
Subjective Subjective Fell again at home. He is clearly unable to care for himself. On the floor was noted to be purple but having pulse ox of 100%. Objective Data Objective Data Vital Signs: Vital Signs Temp Pulse Resp BP Pulse Ox O2 Del Method O2 Flow Rate 36.9 C 70 18 150/99 H 100 Nasal Cannula 2 06/26/23 05:54 06/26/23 05:54 06/26/23 05:54 06/26/23 05:54 06/26/23 05:56 06/26/23 05:56 06/26/23 05:56 Oxygen Flow Rate (L/min) 2 Oxygen Delivery Method Nasal Cannula Weight: 95.2 kg Body Mass Index (BMI) 30.0 Intake & Output: Intake and Output for Last 24 Hours 06/24/23 06/25/23 06/26/23 23:59 23:59 23:59 Intake Total 300 / 300 Output Total 500 / 500 Balance -200 / -200 Lab / Micro Data 06/26/23 07:57 06/26/23 07:57 Labs: Laboratory Results - last 24 hr 06/25/23 22:40: WBC 9.1, RBC 4.95, Hgb 16.1, Hct 50.3, MCV 101.6 H, MCH 32.5 H, MCHC 32.0, RDW Std Deviation 49.4 H, RDW Coeff of Frantz 13.2, Plt Count 157, MPV 10.6, Immature Gran % (Auto) 3.200 H, Neut % (Auto) 71.4 H, Lymph % (Auto) 10.3 L, [place] % (Auto) 10.8 H, Eos % (Auto) 3.3, Baso % (Auto) 1.0, Absolute Neuts (auto) 6.5, Absolute Lymphs (auto) 0.94, Nucleated RBC % 0, Sodium 138, Potassium 4.8, Chloride 104, Carbon Dioxide 29.0, Anion Gap 5, BUN 20 H, Creatinine 1.19, Est GFR (MDRD) Af Amer 77, Est GFR (MDRD) Non-Af 63, BUN/Creatinine Ratio 16.8, Glucose 121 H, Calcium 8.9, Total Creatine Kinase 387 H, Phenobarbital Cancelled 06/25/23 23:49: Phenobarbital 28.9 Radiography Diagnostic Testing: Radiology Impression Chest X-Ray 06/25/23 21:20 IMPRESSION: Diminished inspiratory effort but no acute cardiopulmonary pathology Electronically Signed: Ti Langston MD at 21:39 EDT , Physical Exam Const alert and no apparent distress Constitutional Narrative: eating eggs with his hands. Resp normal respiratory effort Neuro Sensorium / Orientation: awake Assessment & Plan Assessment/Plan (1) Failure to thrive: PLAN: Plan Adult FTT * PT/OT/case management consulted for discharge planning. * Pt fell after awaking from night terror and reportedly was unable to get up for 4 days. Fell again after being discharged home. Clearly, he cannot take care of himself and will require SNF. He is high-risk for injury due to falls. Acute mild rhabdomyolysis: * Mild. Admission total creatinine kinase very mildly elevated 832, improved to 350. * 2/ fall. From the patient's description, it does not sound like a seizure. * Conintue gabapentin & phenobarbital home regimen * PRN ativan, fall precautions concurrently. * HLIV Seizure disorder * Patient states that he knows of the seizures, because he has headache and starts shaking and is able to pull self over but states he does lose consciousness at times. Not sure if what he describing is having seizures but I did explain to him if he is losing consciousness that he should not get behind the wheel. He states that he has something from the [facility] that certifies him to be able to drive. I told the patient I am not aware of this certification by the [facility] but he would actually require a physician to authorize him to drive and I doubt there would be any reputable physician, neurologist internal medicine etc. that would authorize someone who is having seizures to actively drive. I told the patient that he should not drive. He states that he cannot because he has a sling from the V. I told him I am concerned that either he is lying to me or he has been misled by someone's that states that he has something from the [facility] that authorized him to drive with an active seizure disorder. * Whether or not he is actively having seizures or not but he is endorsing he is having loss of consciousness. That in itself is a reason for him not to drive. I told the patient that he should not get behind the wheel whatsoever and that if he were to cause an accident or injury that that may be possible by legal or possible other traditional means including assisted. Chronic conditions: * Chronic Polycythemia: Admission hemoglobin 18.5, baseline appears primarily 17-18, does chronically smoke, no overt diagnosis noted in medical history, will continue to trend CBC. * CAD: Status post PCI, will continue aspirin, Plavix given CT head and cervical spine with no acute findings, additionally will continue statin, clarifying but recurrent list does not appear to be on beta-radha therapy or ТАТЬЯНА inhibitor/ARB. * Hypertension: Continue home regimen including isosorbide, PRN hydralazine. * Hyperlipidemia: Given mild rhabdo with discomfort we will temporally hold home statin therapy. * Chronic COPD with allergic rhinitis: Will maintain on oxygen with wean as tolerated to room air, continue ATC budesonide therapy, PRN albuterol, HOB, IS parameters, continue patient home montelukast home regimen. * Chronic Kidney Disease Stage III, unclear subtype: Admission BUN/Cr 20/1.53, GFR 47, baseline renal function primarily 1.4-1.6, repeat BMP in AM. * History prostate cancer: Status post TURP, from current medication list does not appear to be on chronic regimen but clarifying, encourage continued outpatient follow-up with urology as previously arranged. * PTSD: Clarifying but if appropriate no concern for sedation we will continue patient home diazepam regimen to avoid withdrawal especially. * Glaucoma: We will continue patient home eyedrop regimen. * GERD: Per current list not on regimen, clarifying, will have as needed Mylanta. * BPH: Patient on CT imaging does have enlarged prostate, not on any chronic regimen per current list but clarifying, encourage continued outpatient follow-up with urology. DVT prophylaxis: Heparin. CODE status: Full Disposition: to SNF. Charges/Coding Visit Charges Inpatient E&M: 37356 Subs Hosp L2
[2023-06-26] MEDS: Montelukast 10 MG Tablet PO (07:43)
[2023-06-26] MEDS: Isosorbide DN 30 MG Tablet PO (07:43)
[2023-06-26] MEDS: Aspirin 81 MG TAB.CHEW PO (07:43)
[2023-06-26] MEDS: Clopidogrel Bisulfate 75 MG Tablet PO (07:43)
[2023-06-26] MEDS: Timolol 0.5% 5ML OPTH.BTL 1 DRP OPHTHALMIC ×2 (07:44→20:55)
[2023-06-26] MEDS: Albuterol 2.5 MG/3 ML VIAL.NEB. INHALATION ×2 (07:56→11:36)
[2023-06-26 08:18] LABS: Absolute Lymphocyte Count 0.91 X10^3/uL (0.83-4.51); Absolute Neutrophil Count 4.8 X10^3/uL (2.0-7.7); Basophil# 0.09 X10^3/uL; Basophil% 1.2 % (0-1); Eosinophil# 0.24 X10^3/uL; Eosinophils% 3.3 % (0-5); Hematocrit 54.6 % (40-54); Hemoglobin 17.8 g/dL (13.0-16.5); Lymphocyte # 0.91 X10^3/ul (0.83-4.51); Lymphocyte % 12.5 % (19-41); Mean Corp Hgb Conc 32.6 g/dL (32-36); Mean Corpuscular Hgb 33.6 pg (27.0-32.0); Mean Platelet Vol. 10.4 fl (6.2-12.0); Monocyte# 1.01 X10^3/uL; Monocyte% 13.9 % (0-10); NRBC Flagged by Analyzer 0 % (0-5); Neutrophil % 65.9 % (47-70); Platelet Count 173 K/mm3 (150-450); RBC Distribution Width CV 13.2 % (11.6-14.6); RBC Distribution Width SD 50.6 fl (35.1-43.9); White Blood Count 7.3 K/mm3 (4.4-11.0)
[2023-06-26 08:48] LABS: Anion Gap 4 (5-15); BUN 16 mg/dL (7-18); BUN/Creat Ratio 12.3 RATIO (10-20); Calcium,Total 9.2 mg/dL (8.5-10.1); Chloride 102 mmol/L (98-107); EST Glomerular Filtration Rate 57 mL/min (>60); Est Glom Filt Rate - Afr Amer 69 mL/min (>60); Estimated Creatinine Clearance 56.86 ml/min; Glucose 90 mg/dL (74-106); Potassium 4.2 mmol/L (3.5-5.1); Sodium Level 139 mmol/L (136-145)
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
--- NOTE | 2023-06-26 09:15 | WOUNDNOTE ---
wound photo: right lower leg
--- NOTE | 2023-06-26 09:15 | WOUNDNOTE ---
wound photo: right leg
--- NOTE | 2023-06-26 09:16 | WOUNDNOTE ---
wound photo: right elbow
--- NOTE | 2023-06-26 09:16 | WOUNDNOTE ---
wound photo: left elbow
--- NOTE | 2023-06-26 11:32 | RAD_ITS ---
STUDY: X-RAY CHEST REASON FOR EXAM: Male, 73 years old. Hypoxia TECHNIQUE: Single AP portable view of the chest. COMPARISON: Comparison is made with prior study dated June 25, 2023 and number 25/09/2022. FINDINGS: The lungs are clear and expanded. There is no demonstrated pleural abnormality. Normal size heart. Normal mediastinum and orion. Normal visualized pulmonary arteries. Normal visualized aortic arch and descending thoracic aorta. There are diffuse degenerative changes of the visualized thoracic spine. Degenerative changes of the left shoulder joint with deformity of the left humeral head. There is no demonstrated abnormality of the visualized soft tissue structures of the upper abdomen. RAD/Chest 1 View (Portable) IMPRESSION: Stable examination. No acute abnormality is seen. Electronically Signed: Sanya Jacome MD at 15:20 EDT ,
--- NOTE | 2023-06-26 12:06 | CASEMGMT ---
Social Work- RNCM updated that pt willing to consider placement for rehab. Cln provided pt with a list of providers based on his geograhic location, insurance provider, and with quality ratings. Pt would like to begin referral process to [facility], as he has previous experience with that facility. Plan; [facility]; pending acceptance JUSTICE Bucio
--- NOTE | 2023-06-26 12:22 | CASEMGMT ---
Addendum entered by Antonia Chapa 06/26/23 13:02: Social Work [facility] can take pt and will start precert, LAVERNE Jamesy let pt know, pt agreeable. Kendra Hatfield Original Note: Social Work Referral sent to [facility] per pt's request, via [facility]. SW will continue to follow. HUGO HatfieldS
--- NOTE | 2023-06-26 15:07 | CASEMGMT ---
Social Work [facility] sent an update in [facility], pt has [employer], not [facility]. LAVERNE updated registration and the [employer] insurance was verified. LAVERNE called [place] LAVERNE Alfaro, message left regarding concerns around pt and recent reports of dreaming and thinking he is in the jungle. WICHO Hatfield
--- NOTE | 2023-06-26 16:38 | CASEMGMT ---
Social Work SW received message from , it is not anticipated we will get precert this weekend, SW will follow up w/herbert on Thursday. LAVERNE let pt know. WICHO Hatfield
[2023-06-26] MEDS: TIAGABINE HCL 4 MG TABLET PO ×2 (17:13→20:55)
[2023-06-26] MEDS: traZODone 100 MG Tablet PO (20:52)
[2023-06-26] MEDS: Prazosin HCl 1 MG Capsule 4 MG PO (20:52)
[2023-06-26] MEDS: Atorvastatin Calcium 10 MG Tablet PO (20:54)
[2023-06-27] VITALS (11 sets, daily range): BP systolic 129–139; BP diastolic 67–76; PULSE 60–86; RESP 16–22; TEMP 36.7–37.4; O2SAT 94–98
[2023-06-27] MEDS: Phenobarbital 32.4 MG Tablet 64.8 MG PO ×2 (05:05→21:20)
[2023-06-27] MEDS: oxyCODONE 5 MG Tablet 10 MG PO ×3 (05:05→21:20)
[2023-06-27] MEDS: Phenobarbital 32.4 MG Tablet PO ×3 (05:05→21:20)
[2023-06-27 06:35] LABS: Absolute Lymphocyte Count 0.86 X10^3/uL (0.83-4.51); Absolute Neutrophil Count 4.1 X10^3/uL (2.0-7.7); Basophil# 0.06 X10^3/uL; Basophil% 0.9 % (0-1); Eosinophil# 0.21 X10^3/uL; Eosinophils% 3.3 % (0-5); Hematocrit 47.5 % (40-54); Hemoglobin 15.2 g/dL (13.0-16.5); Lymphocyte # 0.86 X10^3/ul (0.83-4.51); Lymphocyte % 13.4 % (19-41); Mean Corpuscular Hgb 32.3 pg (27.0-32.0); Mean Corpuscular Volume 101.1 fL (80-94); Mean Platelet Vol. 10.1 fl (6.2-12.0); Monocyte# 0.99 X10^3/uL; Monocyte% 15.4 % (0-10); NRBC Flagged by Analyzer 0 % (0-5); Neutrophil # 4.09 X10^3/uL (2.7-7.7); Neutrophil % 63.4 % (47-70); Platelet Count 151 K/mm3 (150-450); RBC Distribution Width SD 48.3 fl (35.1-43.9); White Blood Count 6.4 K/mm3 (4.4-11.0)
[2023-06-27 07:16] LABS: AST(SGOT) 38 U/L (15-37); Alanine Aminotransfer ALT/SGPT 44 U/L (16-61); Albumin, Serum 3.2 g/dL (3.2-5.0); Alkaline Phosphatase 78 U/L (45-117); Anion Gap 2 (5-15); BUN 12 mg/dL (7-18); BUN/Creat Ratio 10.5 RATIO (10-20); Calcium,Total 8.5 mg/dL (8.5-10.1); Chloride 103 mmol/L (98-107); Creatinine, Serum 1.14 mg/dL (0.70-1.30); EST Glomerular Filtration Rate 67 mL/min (>60); Est Glom Filt Rate - Afr Amer 81 mL/min (>60); Estimated Creatinine Clearance 64.84 ml/min; Globulin 3.3 g/dL (2.2-4.2); Glucose 113 mg/dL (74-106); Potassium 4.1 mmol/L (3.5-5.1); Protein, Total 6.5 g/dL (6.4-8.2); Sodium Level 137 mmol/L (136-145)
[2023-06-27] MEDS: Aspirin 81 MG TAB.CHEW PO (07:38)
[2023-06-27] MEDS: Clopidogrel Bisulfate 75 MG Tablet PO (07:38)
[2023-06-27] MEDS: TIAGABINE HCL 4 MG TABLET PO ×4 (07:38→21:23)
[2023-06-27] MEDS: Timolol 0.5% 5ML OPTH.BTL 1 DRP OPHTHALMIC ×2 (07:39→21:22)
[2023-06-27] MEDS: Montelukast 10 MG Tablet PO (07:40)
[2023-06-27] MEDS: Isosorbide DN 30 MG Tablet PO (07:40)
[2023-06-27] MEDS: Albuterol 2.5 MG/3 ML VIAL.NEB. INHALATION ×2 (15:15→21:44)
--- NOTE | 2023-06-27 17:52 | PN.HOSP_ITS ---
Subjective Subjective Patient was seen and examined today, we are currently awaiting approval for the patient to go to a nursing home facility for short-term rehab services. Objective Data Objective Data Vital Signs: Vital Signs Temp Pulse Resp BP Pulse Ox O2 Del Method O2 Flow Rate 99.4 F H 77 16 131/76 H 95 Nasal Cannula 3 06/27/23 15:29 06/27/23 15:29 06/27/23 15:29 06/27/23 15:29 06/27/23 15:29 06/27/23 15:29 06/27/23 15:29 Oxygen Flow Rate (L/min) 3 Oxygen Delivery Method Nasal Cannula Weight: 95.2 kg Body Mass Index (BMI) 30.0 Intake & Output: Intake and Output for Last 24 Hours 06/25/23 06/26/23 06/27/23 23:59 23:59 23:59 Intake Total 1931.25 / 1931.25 400 / 400 Output Total 500 / 500 900 / 900 Balance 1431.25 / 1431.25 -500 / -500 Lab / Micro Data 06/27/23 06:17 06/27/23 06:17 Labs: Laboratory Results - last 24 hr 06/27/23 06:17: WBC 6.4, RBC 4.70, Hgb 15.2, Hct 47.5, MCV 101.1 H, MCH 32.3 H, MCHC 32.0, RDW Std Deviation 48.3 H, RDW Coeff of Frantz 13.0, Plt Count 151, MPV 10.1, Immature Gran % (Auto) 3.600 H, Neut % (Auto) 63.4, Lymph % (Auto) 13.4 L, [place] % (Auto) 15.4 H, Eos % (Auto) 3.3, Baso % (Auto) 0.9, Absolute Neuts (auto) 4.1, Absolute Lymphs (auto) 0.86, Nucleated RBC % 0, Sodium 137, Potassium 4.1, Chloride 103, Carbon Dioxide 32.0, Anion Gap 2 L, BUN 12, Creatinine 1.14, Estim Creat Clear Calc 64.84, Est GFR (MDRD) Af Amer 81, Est GFR (MDRD) Non-Af 67, BUN/Creatinine Ratio 10.5, Glucose 113 H, Calcium 8.5, Total Bilirubin 0.60, AST 38 H, ALT 44, Alkaline Phosphatase 78, Total Protein 6.5, Albumin 3.2, Globulin 3.3, Albumin/Globulin Ratio 1.0 Physical Exam Const alert, oriented x3 and no apparent distress Constitutional Narrative: Patient appears older than his stated age General Appearance: cooperative, well kempt and well developed Orientation / Consciousness: awake, oriented to person, oriented to place and oriented to time HEENT normocephalic and moist oral mucous membranes Eyes PERRL, EOMs intact bilaterally and conjunctivae normal Neck supple, no JVD, thyroid normal and no carotid bruits General: trachea midline Resp normal respiratory effort, no retractions, no use of accessory muscles and clear to auscultation bilaterally Auscultation: Negative for rales, rhonchi or wheezes Cardio regular rate, regular rhythm, S1 normal heart sound, S2 normal heart sound, no murmurs, no rub and no gallops GI normal to inspection, nondistended, normoactive bowel sounds, soft to palpation, non-tender and non-distended Extremity no clubbing, cyanosis or edema Skin no rashes or lesions noted General Skin Exam: no breakdown Neuro oriented x3, CN's II-XII intact bilaterally, moves all extremities, no focal mo tor deficits and no sensory deficits noted Sensorium / Orientation: awake and alert Speech: speech normal Psych affect normal Assessment & Plan Assessment/Plan (1) Failure to thrive: PLAN: Plan 1. Acute debility secondary to deconditioning-PT and OT will continue to see the patient, he will need short-term placement in a nursing home facility. #2 seizure disorder-patient states he takes Valium 10 mg twice daily as needed, he is also on Gabitril and phenobarbital #3 hyperlipidemia-patient is on atorvastatin #4 PTSD-patient is currently on prazosin #5 coronary artery disease-patient is currently on aspirin and Plavix, he is also on isosorbide I do not feel the patient had rhabdomyolysis Total clinical time spent by myself addressing the patient's medical issues, reviewing all of his data, and collaborating with patient's care team: 35 minutes Charges/Coding Visit Charges Inpatient E&M: 82857 Subs Hosp L2
[2023-06-27] MEDS: traZODone 100 MG Tablet PO (21:20)
[2023-06-27] MEDS: Atorvastatin Calcium 10 MG Tablet PO (21:20)
[2023-06-27] MEDS: Prazosin HCl 1 MG Capsule 4 MG PO (21:21)
[2023-06-28] VITALS (8 sets, daily range): BP systolic 108–159; BP diastolic 50–97; PULSE 66–86; RESP 16–20; TEMP 36.6–37.3; O2SAT 95–98
[2023-06-28] MEDS: Phenobarbital 32.4 MG Tablet PO ×3 (05:28→21:48)
[2023-06-28] MEDS: Phenobarbital 32.4 MG Tablet 64.8 MG PO ×2 (05:28→21:48)
[2023-06-28] MEDS: oxyCODONE 5 MG Tablet 10 MG PO ×3 (05:28→21:47)
[2023-06-28] MEDS: Albuterol 2.5 MG/3 ML VIAL.NEB. INHALATION ×2 (05:43→17:20)
[2023-06-28 07:24] LABS: Absolute Lymphocyte Count 0.97 X10^3/uL (0.83-4.51); Absolute Neutrophil Count 4.8 X10^3/uL (2.0-7.7); Basophil# 0.12 X10^3/uL; Basophil% 1.6 % (0-1); Eosinophil# 0.23 X10^3/uL; Eosinophils% 3.1 % (0-5); Hematocrit 48.4 % (40-54); Hemoglobin 15.3 g/dL (13.0-16.5); Lymphocyte # 0.97 X10^3/ul (0.83-4.51); Lymphocyte % 12.9 % (19-41); Mean Corp Hgb Conc 31.6 g/dL (32-36); Mean Corpuscular Hgb 32.6 pg (27.0-32.0); Mean Platelet Vol. 10.3 fl (6.2-12.0); Monocyte# 1.09 X10^3/uL; Monocyte% 14.5 % (0-10); NRBC Flagged by Analyzer 0 % (0-5); Neutrophil # 4.79 X10^3/uL (2.7-7.7); Neutrophil % 63.9 % (47-70); Platelet Count 138 K/mm3 (150-450); RBC Distribution Width CV 12.8 % (11.6-14.6); RBC Distribution Width SD 49.1 fl (35.1-43.9); White Blood Count 7.5 K/mm3 (4.4-11.0)
[2023-06-28 07:43] LABS: ALB/GLOB Ratio 0.8 RATIO (0.9-2.4); AST(SGOT) 23 U/L (15-37); Alanine Aminotransfer ALT/SGPT 40 U/L (16-61); Albumin, Serum 3.1 g/dL (3.2-5.0); Alkaline Phosphatase 81 U/L (45-117); Anion Gap 2 (5-15); BUN 12 mg/dL (7-18); BUN/Creat Ratio 10.2 RATIO (10-20); Calcium,Total 8.9 mg/dL (8.5-10.1); Chloride 100 mmol/L (98-107); Creatinine, Serum 1.18 mg/dL (0.70-1.30); EST Glomerular Filtration Rate 64 mL/min (>60); Est Glom Filt Rate - Afr Amer 77 mL/min (>60); Estimated Creatinine Clearance 62.64 ml/min; Globulin 3.8 g/dL (2.2-4.2); Glucose 131 mg/dL (74-106); Potassium 3.9 mmol/L (3.5-5.1); Protein, Total 6.9 g/dL (6.4-8.2); Sodium Level 135 mmol/L (136-145)
[2023-06-28] MEDS: Timolol 0.5% 5ML OPTH.BTL 1 DRP OPHTHALMIC ×2 (08:42→21:48)
[2023-06-28] MEDS: Clopidogrel Bisulfate 75 MG Tablet PO (08:43)
[2023-06-28] MEDS: Montelukast 10 MG Tablet PO (08:43)
[2023-06-28] MEDS: Isosorbide DN 30 MG Tablet PO (08:43)
[2023-06-28] MEDS: Aspirin 81 MG TAB.CHEW PO (08:43)
[2023-06-28] MEDS: TIAGABINE HCL 4 MG TABLET PO ×4 (10:00→21:47)
--- NOTE | 2023-06-28 14:43 | PCM.PN.HOSP ---
Subjective Subjective Patient was seen and examined today, patient remains on 3 L oxygen via nasal cannula, he has no complaints of shortness of breath Objective Data Objective Data Vital Signs: Vital Signs Temp Pulse Resp BP Pulse Ox O2 Del Method O2 Flow Rate 98.6 F 74 16 116/68 95 Nasal Cannula 3 06/28/23 11:46 06/28/23 11:46 06/28/23 11:46 06/28/23 11:46 06/28/23 11:46 06/28/23 14:20 06/28/23 14:20 Oxygen Flow Rate (L/min) 3 Oxygen Delivery Method Nasal Cannula Weight: 95.2 kg Body Mass Index (BMI) 30.0 Intake & Output: Intake and Output for Last 24 Hours 06/26/23 06/27/23 06/28/23 23:59 23:59 23:59 Intake Total 1931.25 / 1931.25 400 / 400 Output Total 500 / 500 900 / 900 700 / 700 Balance 1431.25 / 1431.25 -500 / -500 -700 / -700 Lab / Micro Data 06/28/23 06:41 06/28/23 06:41 Labs: Laboratory Results - last 24 hr 06/28/23 06:41: WBC 7.5, RBC 4.70, Hgb 15.3, Hct 48.4, MCV 103.0 H, MCH 32.6 H, MCHC 31.6 L, RDW Std Deviation 49.1 H, RDW Coeff of Frantz 12.8, Plt Count 138 L, MPV 10.3, Immature Gran % (Auto) 4.000 H, Neut % (Auto) 63.9, Lymph % (Auto) 12.9 L, [place] % (Auto) 14.5 H, Eos % (Auto) 3.1, Baso % (Auto) 1.6 H, Absolute Neuts (auto) 4.8, Absolute Lymphs (auto) 0.97, Nucleated RBC % 0, Sodium 135 L, Potassium 3.9, Chloride 100, Carbon Dioxide 33.0 H, Anion Gap 2 L, BUN 12, Creatinine 1.18, Estim Creat Clear Calc 62.64, Est GFR (MDRD) Af Amer 77, Est GFR (MDRD) Non-Af 64, BUN/Creatinine Ratio 10.2, Glucose 131 H, Calcium 8.9, Total Bilirubin 0.60, AST 23, ALT 40, Alkaline Phosphatase 81, Total Protein 6.9, Albumin 3.1 L, Globulin 3.8, Albumin/Globulin Ratio 0.8 L Physical Exam Narrative alert, oriented x3 and no apparent distress Constitutional Narrative: Patient appears older than his stated age General Appearance: cooperative, well kempt and well developed Orientation / Consciousness: awake, oriented to person, oriented to place and oriented to time HEENT normocephalic and moist oral mucous membranes Eyes PERRL, EOMs intact bilaterally and conjunctivae normal Neck supple, no JVD, thyroid normal and no carotid bruits General: trachea midline Resp normal respiratory effort, no retractions, no use of accessory muscles and clear to auscultation bilaterally Auscultation: Negative for rales, rhonchi or wheezes Cardio regular rate, regular rhythm, S1 normal heart sound, S2 normal heart sound, no murmurs, no rub and no gallops GI normal to inspection, nondistended, normoactive bowel sounds, soft to palpation, non-tender and non-distended Extremity no clubbing, cyanosis or edema Skin no rashes or lesions noted General Skin Exam: no breakdown Neuro oriented x3, CN's II-XII intact bilaterally, moves all extremities, no focal motor deficits and no sensory deficits noted Sensorium / Orientation: awake and alert Speech: speech normal Psych affect normal Assessment & Plan Assessment/Plan (1) Failure to thrive: PLAN: Plan 1. Acute debility secondary to deconditioning-PT and OT will continue to see the patient, he will need short-term placement in a longterm facility. #2 seizure disorder-patient states he takes Valium 10 mg twice daily as needed, he is also on Gabitril and phenobarbital #3 hyperlipidemia-patient is on atorvastatin #4 PTSD-patient is currently on prazosin #5 coronary artery disease-patient is currently on aspirin and Plavix, he is also on isosorbide #6 chronic hypoxic respiratory failure I do not feel the patient had rhabdomyolysis this admission Total clinical time spent by myself addressing the patient's medical issues, reviewing all of his data, and collaborating with patient's care team: 35 minutes Charges/Coding Visit Charges Inpatient E&M: 03722 [facility] Hosp L2
[2023-06-28] MEDS: Atorvastatin Calcium 10 MG Tablet PO (21:47)
[2023-06-28] MEDS: traZODone 100 MG Tablet PO (21:47)
[2023-06-28] MEDS: Prazosin HCl 1 MG Capsule 4 MG PO (21:47)
[2023-06-29 02:01] VITALS: BP 134/59; PULSE 61; RESP 16; TEMP 36.9; O2SAT 97
[2023-06-29] MEDS: Phenobarbital 32.4 MG Tablet 64.8 MG PO ×2 (05:59→14:30)
[2023-06-29] MEDS: oxyCODONE 5 MG Tablet 10 MG PO ×3 (05:59→22:36)
[2023-06-29] MEDS: Phenobarbital 32.4 MG Tablet PO ×3 (05:59→22:35)
[2023-06-29 06:37] LABS: Absolute Lymphocyte Count 0.92 X10^3/uL (0.83-4.51); Absolute Neutrophil Count 4.3 X10^3/uL (2.0-7.7); Basophil# 0.07 X10^3/uL; Eosinophil# 0.31 X10^3/uL; Eosinophils% 4.5 % (0-5); Hematocrit 46.7 % (40-54); Hemoglobin 14.7 g/dL (13.0-16.5); Lymphocyte # 0.92 X10^3/ul (0.83-4.51); Lymphocyte % 13.3 % (19-41); Mean Corp Hgb Conc 31.5 g/dL (32-36); Mean Corpuscular Hgb 32.2 pg (27.0-32.0); Mean Corpuscular Volume 102.2 fL (80-94); Mean Platelet Vol. 10.3 fl (6.2-12.0); Monocyte# 0.98 X10^3/uL; Monocyte% 14.2 % (0-10); NRBC Flagged by Analyzer 0 % (0-5); Neutrophil # 4.33 X10^3/uL (2.7-7.7); Neutrophil % 62.8 % (47-70); Platelet Count 142 K/mm3 (150-450); RBC Distribution Width SD 48.3 fl (35.1-43.9); Red Blood Count 4.57 M/mm3 (4.6-6.2); White Blood Count 6.9 K/mm3 (4.4-11.0)
[2023-06-29 07:26] LABS: ALB/GLOB Ratio 0.8 RATIO (0.9-2.4); AST(SGOT) 18 U/L (15-37); Alanine Aminotransfer ALT/SGPT 34 U/L (16-61); Albumin, Serum 3.1 g/dL (3.2-5.0); Alkaline Phosphatase 83 U/L (45-117); Anion Gap 3 (5-15); BUN 15 mg/dL (7-18); BUN/Creat Ratio 12.3 RATIO (10-20); Chloride 100 mmol/L (98-107); Creatinine, Serum 1.22 mg/dL (0.70-1.30); EST Glomerular Filtration Rate 62 mL/min (>60); Est Glom Filt Rate - Afr Amer 74 mL/min (>60); Estimated Creatinine Clearance 60.59 ml/min; Globulin 3.8 g/dL (2.2-4.2); Glucose 127 mg/dL (74-106); Potassium 4.1 mmol/L (3.5-5.1); Protein, Total 6.9 g/dL (6.4-8.2); Sodium Level 136 mmol/L (136-145)
[2023-06-29 07:37] VITALS: BP 134/70; PULSE 65; RESP 18; TEMP 36.9; O2SAT 96
[2023-06-29] MEDS: Aspirin 81 MG TAB.CHEW PO (07:39)
[2023-06-29] MEDS: Clopidogrel Bisulfate 75 MG Tablet PO (07:39)
[2023-06-29] MEDS: Isosorbide DN 30 MG Tablet PO (07:39)
[2023-06-29] MEDS: TIAGABINE HCL 4 MG TABLET PO ×4 (07:39→22:35)
[2023-06-29] MEDS: Timolol 0.5% 5ML OPTH.BTL 1 DRP OPHTHALMIC ×2 (07:40→22:40)
[2023-06-29] MEDS: Montelukast 10 MG Tablet PO (08:55)
--- NOTE | 2023-06-29 09:35 | CASEMGMT ---
Social Work SW sent updates to [facility] via [employer]. LAVERNE also spoke w/LAVERNE Walker from [place], this SW had called last week regarding pt having flashbacks to his time in [facility]. [facility], SW did let Denise know that pt is going to [facility] from here, today or tomorrow most likely. LAVERNE will continue to follow for discharge to [facility] once precert is attained. WICHO Hatfield
[2023-06-29 12:03] VITALS: O2SAT 95
[2023-06-29 13:20] VITALS: BP 132/54; PULSE 78; RESP 18; TEMP 36.8; O2SAT 97
--- NOTE | 2023-06-29 15:50 | CASEMGMT ---
Received vm from [facility] from the [place] requesting update on pt. TC back to [facility], left message that pt is to dc to [facility] but is pending precert at this time.
--- NOTE | 2023-06-29 16:07 | PCM.PN.HOSP ---
Subjective Subjective Patient was seen and examined today, he remains on supplemental nasal oxygen, patient does not complain of any shortness of breath Objective Data Objective Data Vital Signs: Vital Signs Temp Pulse Resp BP Pulse Ox O2 Del Method O2 Flow Rate 98.2 F 78 18 132/54 H 97 Nasal Cannula 3 06/29/23 13:20 06/29/23 13:20 06/29/23 13:20 06/29/23 13:20 06/29/23 13:20 06/29/23 13:22 06/29/23 14:25 Oxygen Flow Rate (L/min) 3 Oxygen Delivery Method Nasal Cannula Weight: 95.2 kg Body Mass Index (BMI) 30.0 Intake & Output: Intake and Output for Last 24 Hours 06/27/23 06/28/23 06/29/23 23:59 23:59 23:59 Intake Total 400 / 400 800 / 1100 300 / 300 Output Total 900 / 900 1350 / 1350 1400 / 1400 Balance -500 / -500 -550 / -250 -1100 / -1100 Lab / Micro Data 06/29/23 06:21 06/29/23 06:21 Labs: Laboratory Results - last 24 hr 06/29/23 06:21: WBC 6.9, RBC 4.57 L, Hgb 14.7, Hct 46.7, MCV 102.2 H, MCH 32.2 H, MCHC 31.5 L, RDW Std Deviation 48.3 H, RDW Coeff of Frantz 13.0, Plt Count 142 L, MPV 10.3, Immature Gran % (Auto) 4.200 H, Neut % (Auto) 62.8, Lymph % (Auto) 13.3 L, Adams % (Auto) 14.2 H, Eos % (Auto) 4.5, Baso % (Auto) 1.0, Absolute Neuts (auto) 4.3, Absolute Lymphs (auto) 0.92, Nucleated RBC % 0, Sodium 136, Potassium 4.1, Chloride 100, Carbon Dioxide 33.0 H, Anion Gap 3 L, BUN 15, Creatinine 1.22, Estim Creat Clear Calc 60.59, Est GFR (MDRD) Af Amer 74, Est GFR (MDRD) Non-Af 62, BUN/Creatinine Ratio 12.3, Glucose 127 H, Calcium 9.0, Total Bilirubin 0.40, AST 18, ALT 34, Alkaline Phosphatase 83, Total Protein 6.9, Albumin 3.1 L, Globulin 3.8, Albumin/Globulin Ratio 0.8 L Physical Exam Narrative alert, oriented x3 and no apparent distress Constitutional Narrative: Patient appears older than his stated age General Appearance: cooperative, well kempt and well developed Orientation / Consciousness: awake, oriented to person, oriented to place and oriented to time HEENT normocephalic and moist oral mucous membranes Eyes PERRL, EOMs intact bilaterally and conjunctivae normal Neck supple, no JVD, thyroid normal and no carotid bruits General: trachea midline Resp normal respiratory effort, no retractions, no use of accessory muscles and clear to auscultation bilaterally Auscultation: Negative for rales, rhonchi or wheezes Cardio regular rate, regular rhythm, S1 normal heart sound, S2 normal heart sound, no murmurs, no rub and no gallops GI normal to inspection, nondistended, normoactive bowel sounds, soft to palpation, non-tender and non-distended Extremity no clubbing, cyanosis or edema Skin no rashes or lesions noted General Skin Exam: no breakdown Neuro oriented x3, CN's II-XII intact bilaterally, moves all extremities, no focal motor deficits and no sensory deficits noted Sensorium / Orientation: awake and alert Speech: speech normal Psych affect normal Assessment & Plan Assessment/Plan (1) Failure to thrive: PLAN: Plan 1. Acute debility secondary to deconditioning-PT and OT will continue to see the patient, he will need short-term placement in a senior care facility. #2 seizure disorder-patient states he takes Valium 10 mg twice daily as needed, he is also on Gabitril and phenobarbital #3 hyperlipidemia-patient is on atorvastatin #4 PTSD-patient is currently on prazosin #5 coronary artery disease-patient is currently on aspirin and Plavix, he is also on isosorbide #6 chronic hypoxic respiratory failure I do not feel the patient had rhabdomyolysis this admission Total clinical time spent by myself addressing the patient's medical issues, reviewing all of his data, and collaborating with patient's care team: 25 minutes Charges/Coding Visit Charges Inpatient E&M: [id number] [facility] L1
[2023-06-29] MEDS: Albuterol 2.5 MG/3 ML VIAL.NEB. INHALATION (16:17)
[2023-06-29 16:18] VITALS: PULSE 77; RESP 20
[2023-06-29 20:00] VITALS: BP 169/85; PULSE 64; RESP 18; TEMP 36.7; O2SAT 98
[2023-06-29] MEDS: Prazosin HCl 1 MG Capsule 4 MG PO (22:34)
[2023-06-29] MEDS: traZODone 100 MG Tablet PO (22:35)
[2023-06-29] MEDS: Atorvastatin Calcium 10 MG Tablet PO (22:36)
[2023-06-30] VITALS (7 sets, daily range): BP systolic 137–168; BP diastolic 59–81; PULSE 63–79; RESP 16–20; TEMP 36.7–36.8; O2SAT 94–99
[2023-06-30] MEDS: Phenobarbital 32.4 MG Tablet PO ×3 (05:54→21:01)
[2023-06-30] MEDS: oxyCODONE 5 MG Tablet 10 MG PO ×3 (05:54→21:01)
[2023-06-30] MEDS: Phenobarbital 32.4 MG Tablet 64.8 MG PO ×2 (05:54→21:01)
[2023-06-30] MEDS: Aspirin 81 MG TAB.CHEW PO (07:47)
[2023-06-30] MEDS: Timolol 0.5% 5ML OPTH.BTL 1 DRP OPHTHALMIC ×2 (07:47→21:03)
[2023-06-30] MEDS: Clopidogrel Bisulfate 75 MG Tablet PO (07:47)
[2023-06-30] MEDS: TIAGABINE HCL 4 MG TABLET PO ×4 (07:47→21:03)
[2023-06-30] MEDS: Isosorbide DN 30 MG Tablet PO (07:47)
[2023-06-30] MEDS: Montelukast 10 MG Tablet PO (07:47)
--- NOTE | 2023-06-30 09:27 | CASEMGMT ---
Social Work SW spoke w/Raoul from [employer], she is helping w/admissions at [facility] today. She will let SW know about precert. She would like updates, SW sent them via [employer]. SW let pt know we are still waiting for insurance to give authorization to go to [facility], pt states understanding, states, I'm not worried. SW will continue to follow. WICHO Hatfield
--- NOTE | 2023-06-30 11:13 | EKG12_ITS ---
Test Reason : CP Blood Pressure : / mmHG Vent. Rate : 070 BPM Atrial Rate : 070 BPM P-R Int : 186 ms QRS Dur : 082 ms QT Int : 352 ms P-R-T Axes : 057 -20 011 degrees QTc Int : 380 ms Normal sinus rhythm Inferior infarct , age undetermined Abnormal ECG When compared with ECG of 22-JUN-2023 14:29, No significant change was found Confirmed by TOMMY XAVIER, NABILA ([id number]), video news editor DIONNA MOORE ([id number]) on 07/06/2023 1:48:58 PM Referred By: KIRSTEN Confirmed By:ANGY SANDERS MD
--- NOTE | 2023-06-30 11:25 | NURSING ---
Addendum entered by Annamarie Martinez 06/30/23 11:46: Per Dr Herrera, EKG normal. Pt's pain improved, resting in bed. Original Note: This RN notified by physical therapy that pt was complaining of sharp pain in his back and chest when trying to get out of bed. This RN and charge master analyst Debora went in to pt room, pt was painful, encouraged deep breathing. Pt says this has been going on for 3-4 days. Vital signs obtained. Stat EKG ordered. Will monitor.
--- NOTE | 2023-06-30 11:43 | CASEMGMT ---
Social Work- spoke with brother, Surya, to answer questions/provide updates and advise of pending precert. Surya asks for update when brother transfers to [facility]. JUSTICE Bucio
--- NOTE | 2023-06-30 13:08 | CASEMGMT ---
Pt brother called in requesting community health planning director, made a TC to [facility] to determine who casework manager is. Left VM to call back.
--- NOTE | 2023-06-30 15:12 | CASEMGMT ---
Social Work Pt's brother had called asking about his business case analyst. SW called pt's brother back in an attempt to clarify to whom he is referring. After further discussion and the CM looking through the chart, pt does have a CM with [facility]. SW gave pt's brother the information for [facility]. SW called [facility], pt's CM is Essence Tesfaye, SW left her a message letting her know pt is here and it is anticipated pt will go to [facility] once we get precert. Precert is still pending w/[facility] at this time. WICHO Hatfield
--- NOTE | 2023-06-30 18:55 | PN.HOSP_ITS ---
Subjective Subjective Patient was seen and examined today, he had an episode of chest pain and EKG was performed which was unremarkable. We are still awaiting approval for the patient to go to a group home facility. Objective Data Objective Data Vital Signs: Vital Signs Temp Pulse Resp BP Pulse Ox O2 Del Method O2 Flow Rate 98.2 F 65 18 137/59 H 94 Nasal Cannula 3 06/30/23 14:15 06/30/23 14:15 06/30/23 14:15 06/30/23 14:15 06/30/23 14:15 06/30/23 14:31 06/30/23 14:31 Oxygen Flow Rate (L/min) 3 Oxygen Delivery Method Nasal Cannula Weight: 95.2 kg Body Mass Index (BMI) 30.0 Intake & Output: Intake and Output for Last 24 Hours 06/28/23 06/29/23 06/30/23 23:59 23:59 23:59 Intake Total 800 / 1100 300 / 550 250 / 250 Output Total 1350 / 1350 1400 / 1400 950 / 950 Balance -550 / -250 -1100 / -850 -700 / -700 Lab / Micro Data 06/29/23 06:21 06/29/23 06:21 Physical Exam Narrative alert, oriented x3 and no apparent distress Constitutional Narrative: Patient appears older than his stated age General Appearance: cooperative, well kempt and well developed Orientation / Consciousness: awake, oriented to person, oriented to place and oriented to time HEENT normocephalic and moist oral mucous membranes Eyes PERRL, EOMs intact bilaterally and conjunctivae normal Neck supple, no JVD, thyroid normal and no carotid bruits General: trachea midline Resp normal respiratory effort, no retractions, no use of accessory muscles and clear to auscultation bilaterally Auscultation: Negative for rales, rhonchi or wheezes Cardio regular rate, regular rhythm, S1 normal heart sound, S2 normal heart sound, no murmurs, no rub and no gallops GI normal to inspection, nondistended, normoactive bowel sounds, soft to palpation, non-tender and non-distended Extremity no clubbing, cyanosis or edema Skin no rashes or lesions noted General Skin Exam: no breakdown Neuro oriented x3, CN's II-XII intact bilaterally, moves all extremities, no focal motor deficits and no sensory deficits noted Sensorium / Orientation: awake and alert Speech: speech normal Psych affect normal Assessment & Plan Assessment/Plan (1) Failure to thrive: PLAN: Plan 1. Acute debility secondary to deconditioning-PT and OT will continue to see the patient, he will need short-term placement in a group home facility. #2 seizure disorder-patient states he takes Valium 10 mg twice daily as needed, he is also on Gabitril and phenobarbital #3 hyperlipidemia-patient is on atorvastatin #4 PTSD-patient is currently on prazosin #5 coronary artery disease-patient is currently on aspirin and Plavix, he is also on isosorbide #6 chronic hypoxic respiratory failure I do not feel the patient had rhabdomyolysis this admission Total clinical time spent by myself addressing the patient's medical issues, reviewing all of his data, and collaborating with patient's care team: 25 minutes Charges/Coding Visit Charges Inpatient E&M: [id number] [facility] Hosp L1
[2023-06-30] MEDS: traZODone 100 MG Tablet PO (21:01)
[2023-06-30] MEDS: Prazosin HCl 1 MG Capsule 4 MG PO (21:02)
[2023-06-30] MEDS: Atorvastatin Calcium 10 MG Tablet PO (21:03)
[2023-07-01 06:00] VITALS: BP 163/79; PULSE 61; RESP 18; TEMP 36.4; O2SAT 95
[2023-07-01] MEDS: oxyCODONE 5 MG Tablet 10 MG PO ×3 (06:15→20:40)
[2023-07-01] MEDS: Phenobarbital 32.4 MG Tablet 64.8 MG PO ×2 (06:15→20:40)
[2023-07-01] MEDS: Phenobarbital 32.4 MG Tablet PO ×3 (06:15→20:39)
[2023-07-01 09:00] VITALS: BP 182/88; PULSE 61; RESP 20; TEMP 36.9; O2SAT 97
[2023-07-01] MEDS: Timolol 0.5% 5ML OPTH.BTL 1 DRP OPHTHALMIC ×2 (09:06→20:33)
[2023-07-01] MEDS: TIAGABINE HCL 4 MG TABLET PO ×4 (09:07→20:34)
[2023-07-01] MEDS: Nystatin Powder 15gm Bottle 1 APPLIC TOPICAL ×2 (09:07→20:35)
[2023-07-01] MEDS: Montelukast 10 MG Tablet PO (09:07)
[2023-07-01] MEDS: Isosorbide DN 30 MG Tablet PO (09:07)
[2023-07-01] MEDS: Clopidogrel Bisulfate 75 MG Tablet PO (09:07)
[2023-07-01] MEDS: Aspirin 81 MG TAB.CHEW PO (09:07)
[2023-07-01] MEDS: Glycerin/Hypromellose/PEG400 15 ml Bottle 1 DRP EACH EYE (09:08)
[2023-07-01] MEDS: MENTHOL 226.8 GM JAR 1 APPLIC TOPICAL ×2 (10:28→17:13)
[2023-07-01 10:57] VITALS: BP 150/65; PULSE 71; RESP 22; TEMP 36.8; O2SAT 94
[2023-07-01] MEDS: Albuterol 2.5 MG/3 ML VIAL.NEB. INHALATION (11:04)
[2023-07-01 11:05] VITALS: PULSE 78; RESP 19; O2SAT 94
--- NOTE | 2023-07-01 11:49 | CASEMGMT ---
Social Work SW spoke w/Raoul who is working on precert for [employer], still no approval has come through. LAVERNE sent updates via [employer], will continue to follow. WICHO Hatfield
[2023-07-01 14:22] VITALS: BP 132/69; PULSE 63; RESP 18; TEMP 36.8; O2SAT 96
--- NOTE | 2023-07-01 18:17 | PN.HOSP_ITS ---
Subjective Subjective Patient was seen and examined today, he remains on 3 L of nasal cannula oxygen, we have not heard word from his insurance regarding approval for the patient to go to an extended care facility. Objective Data Objective Data Vital Signs: Vital Signs Temp Pulse Resp BP Pulse Ox O2 Del Method O2 Flow Rate 98.2 F 63 18 132/69 H 96 Nasal Cannula 3 07/01/23 14:22 07/01/23 14:22 07/01/23 14:22 07/01/23 14:22 07/01/23 14:22 07/01/23 14:22 07/01/23 14:22 Oxygen Flow Rate (L/min) 3 Oxygen Delivery Method Nasal Cannula Weight: 95.2 kg Body Mass Index (BMI) 30.0 Intake & Output: Intake and Output for Last 24 Hours 06/29/23 06/30/23 07/01/23 23:59 23:59 23:59 Intake Total 300 / 550 250 / 250 Output Total 1400 / 1400 950 / 950 1350 / 1350 Balance -1100 / -850 -700 / -700 -1350 / -1350 Lab / Micro Data 06/29/23 06:21 06/29/23 06:21 Physical Exam Narrative alert, oriented x3 and no apparent distress Constitutional Narrative: Patient appears older than his stated age General Appearance: cooperative, well kempt and well developed Orientation / Consciousness: awake, oriented to person, oriented to place and oriented to time HEENT normocephalic and moist oral mucous membranes Eyes PERRL, EOMs intact bilaterally and conjunctivae normal Neck supple, no JVD, thyroid normal and no carotid bruits General: trachea midline Resp normal respiratory effort, no retractions, no use of accessory muscles and clear to auscultation bilaterally Auscultation: Negative for rales, rhonchi or wheezes Cardio regular rate, regular rhythm, S1 normal heart sound, S2 normal heart sound, no murmurs, no rub and no gallops GI normal to inspection, nondistended, normoactive bowel sounds, soft to palpation, non-tender and non-distended Extremity no clubbing, cyanosis or edema Skin no rashes or lesions noted General Skin Exam: no breakdown Neuro oriented x3, CN's II-XII intact bilaterally, moves all extremities, no focal motor deficits and no sensory deficits noted Sensorium / Orientation: awake and alert Speech: speech normal Psych affect normal Assessment & Plan Assessment/Plan (1) Failure to thrive: PLAN: Plan 1. Acute debility secondary to deconditioning-PT and OT will continue to see the patient, he will need short-term placement in a correction facility. #2 seizure disorder-patient states he takes Valium 10 mg twice daily as needed, he is also on Gabitril and phenobarbital #3 hyperlipidemia-patient is on atorvastatin #4 PTSD-patient is currently on prazosin #5 coronary artery disease-patient is currently on aspirin and Plavix, he is also on isosorbide #6 chronic hypoxic respiratory failure-patient remains on 3 L of oxygen via nasal cannula I do not feel the patient had rhabdomyolysis this admission Total clinical time spent by myself addressing the patient's medical issues, reviewing all of his data, and collaborating with patient's care team: 25 minutes Charges/Coding Visit Charges Inpatient E&M: [id number] [facility] Hosp L1
[2023-07-01 20:29] VITALS: BP 156/82; PULSE 60; RESP 20; TEMP 36.4; O2SAT 99
[2023-07-01] MEDS: Prazosin HCl 1 MG Capsule 4 MG PO (20:34)
[2023-07-01] MEDS: Atorvastatin Calcium 10 MG Tablet PO (20:35)
[2023-07-01] MEDS: traZODone 100 MG Tablet PO (20:35)
[2023-07-02] VITALS (7 sets, daily range): BP systolic 133–171; BP diastolic 67–95; PULSE 65–70; RESP 18–20; TEMP 36.7–37.2; O2SAT 95–99
[2023-07-02] MEDS: MENTHOL 226.8 GM JAR 1 APPLIC TOPICAL ×2 (06:08→20:46)
[2023-07-02] MEDS: oxyCODONE 5 MG Tablet 10 MG PO ×3 (06:08→20:47)
[2023-07-02] MEDS: Phenobarbital 32.4 MG Tablet 64.8 MG PO ×2 (06:08→20:47)
[2023-07-02] MEDS: Phenobarbital 32.4 MG Tablet PO ×3 (06:08→20:47)
[2023-07-02] MEDS: TIAGABINE HCL 4 MG TABLET PO ×4 (09:26→20:47)
[2023-07-02] MEDS: Montelukast 10 MG Tablet PO (09:26)
[2023-07-02] MEDS: Isosorbide DN 30 MG Tablet PO (09:26)
[2023-07-02] MEDS: Nystatin Powder 15gm Bottle 1 APPLIC TOPICAL ×2 (09:27→20:47)
[2023-07-02] MEDS: Clopidogrel Bisulfate 75 MG Tablet PO (09:27)
[2023-07-02] MEDS: Timolol 0.5% 5ML OPTH.BTL 1 DRP OPHTHALMIC ×2 (09:27→20:46)
[2023-07-02] MEDS: Aspirin 81 MG TAB.CHEW PO (09:27)
--- NOTE | 2023-07-02 13:25 | CASEMGMT ---
Discharge Planning [employer] has received auth. SW updated. Johana Zuleta, Discharge Planning Asst.
--- NOTE | 2023-07-02 15:39 | PCM.TXEXTCAR ---
Diet Diet Order/Speech Therapy: 06/26/23 00:44 Diet: Cardiac - Heart Healthy Food consistency:: Regular Liquid Consistency:: Regular/Thin Is pt able to select menu?: No Routine Orders/Code Status O2 Liters per Minute: 2 O2 Frequency: Continuous Keep PO Greater than or Equal to (%): 90 Wound(s) rt leg: Wound Type: scattered abrasions left knee: Wound Type: Abrasion rt elbow: Wound Type: scabbed over abrasion Dressing Change: Adaptic left elbow: Wound Type: Abrasion rt toes: Wound Type: Abrasion Therapies Weight Bearing: Full weight bearing (with walker) Physical Therapy: Eval and Treat Occupational Therapy: Eval and Treat Problem/Diagnosis (1) Failure to thrive: Status: Acute (2) Bilateral shoulder pain: Status: Acute Code(s): M25.511 - Pain in right shoulder; M25.512 - Pain in left shoulder Plan 1. Acute debility secondary to deconditioning-PT and OT will continue to see the patient, he will need short-term placement in a correction facility. #2 seizure disorder-patient states he takes Valium 10 mg twice daily as needed, he is also on Gabitril and phenobarbital #3 hyperlipidemia-patient is on atorvastatin #4 PTSD-patient is currently on prazosin #5 coronary artery disease-patient is currently on aspirin and Plavix, he is also on isosorbide #6 chronic hypoxic respiratory failure-patient remains on 3 L of oxygen via nasal cannula I do not feel the patient had rhabdomyolysis this admission Total clinical time spent by myself addressing the patient's medical issues, reviewing all of his data, and collaborating with patient's care team: 25 minutes Allergies/Procedures Done in Hospital Allergies bee pollen Allergy (Severe, Verified 06/25/23 19:20) Anaphylaxis amlodipine besylate [From Norvasc] Adverse Reaction (Severe, Verified 06/25/23 19:20) Upset Stomach cephalexin [From Keflex] Adverse Reaction (Severe, Verified 06/25/23 19:20) Hives mental change latex Adverse Reaction (Severe, Verified 06/25/23 19:20) Rash phenytoin sodium [From Dilantin] Adverse Reaction (Severe, Verified 06/25/23 19:20) Hives At doses of higher than 100 mg phenytoin sodium extended [From Dilantin] Adverse Reaction (Severe, Verified 06/25/23 19:20) Hives At doses of higher than 100 mg sesame oil Adverse Reaction (Severe, Verified 06/25/23 19:20) Upset Stomach carbamazepine [From Tegretol] Adverse Reaction (Mild, Verified 06/25/23 19:20) Hives sucralfate [From Carafate] Adverse Reaction (Mild, Verified 06/25/23 19:20) Hives Sulfa (Sulfonamide Antibiotics) Adverse Reaction (Verified 06/25/23 19:20) Unknown Procedures: None Type of Care/Length of Stay Estimated LOS: Convalescent Care Less Than 30 days Type of Care Needed: Skilled Rehab Potential: Good Prognosis: Good Additional Orders/Day of Discharge H&P will serve as current which was dated: 06/25/23 Day of Discharge: 07/02/23 Dietary and Speech Recommendations Dietitian Recommendations/Changes: Continue Cardiac diet as ordered. Discharge Plan Admission Admit Date/Time: 06/25/23 23:05 Primary Reason for Your Visit: Debility Attending Provider: Elijah Herrera Primary Care Provider: Elijah Mullins Consulting Providers: Elijah Herrera; John Lemus Discharge Orders/Prescriptions Prescriptions: New albuterol sulfate 2.5 mg /3 mL (0.083 %) Solution For Nebulization 2.5 mg inhalation Q4H PRN PRN (Reason: shortness of breath or wheezing) Qty: 0 0RF atorvastatin 10 mg Tablet 10 mg PO QHS Qty: 0 0RF clopidogrel 75 mg Tablet 75 mg PO DAILY Qty: 0 0RF aspirin 81 mg Tablet,Chewable 81 mg PO DAILY@0800 Qty: 0 0RF diazepam 5 mg Tablet 10 mg PO BID PRN PRN (Reason: seizure activity) Qty: 4 0RF Artificial Tears([id number]) 1-0.2-0.2 % Drops 1 drp EACH EYE Q2H PRN PRN (Reason: DRY EYES) Qty: 0 0RF isosorbide dinitrate 30 mg Tablet 30 mg PO DAILY Qty: 0 0RF montelukast 10 mg Tablet 10 mg PO DAILY Qty: 0 0RF oxycodone 5 mg Tablet 10 mg PO TID 2 Days Qty: 12 0RF prazosin 1 mg Capsule 4 mg PO QHS Qty: 0 0RF tiagabine 4 mg Tablet 4 mg PO 4X/DAY Qty: 0 0RF trazodone 100 mg Tablet 100 mg PO QHS Qty: 0 0RF nystatin [Nyamyc] 100,000 unit/gram Powder 1 applic topical BID Qty: 0 0RF Protocol: *Topical Application Instructions APPLICATION INSTRUCTIONS: groin timolol maleate 0.5 % Drops 1 drp ophthalmic (eye) BID Qty: 0 0RF phenobarbital 32.4 mg Tablet 64.8 mg PO 0600,2200 Qty: 6 0RF mecobalamin (vitamin B12) [B12 Active] 1,000 mcg tablet,chewable 1,000 mcg PO DAILY Qty: 1 0RF phenobarbital 32.4 mg Tablet 32.4 mg PO TID Qty: 9 0RF Continued clopidogrel 75 MG tablet 75 mg PO DAILY Patient Comments: Blood thinner aspirin 81 MG tablet,chewable 81 mg PO DAILY@0800 Patient Comments: Blood thinner for heart health trazodone 100 MG tablet 100 mg PO QHS Patient Comments: Sleep isosorbide dinitrate 30 MG tablet 30 mg PO DAILY simvastatin 20 MG tablet 20 mg PO QHS phenobarbital 64.8 mg tablet 64.8 mg PO BID Rx Instructions: with 32.4mg cholecalciferol (vitamin D3) 2,000 UNIT capsule 2,000 unit PO DAILY montelukast 10 mg tablet 10 mg PO DAILY PRN Patient Comments: take 1 tablet by mouth once daily timolol maleate 0.5 % drops 1 drp ophthalmic (eye) BID oxycodone 10 mg tablet 10 mg PO TID prazosin 2 mg capsule 4 mg PO DAILY tiagabine [Gabitril] 4 mg tablet 4 mg PO 4X/DAY phenobarbital 32.4 MG tablet 32.4 mg PO TID Qty: 10 0RF Discontinued albuterol sulfate [ProAir HFA] 90 mcg/actuation HFA aerosol inhaler 2 puff INHALATION Q4H PRN (Reason: shortness of breath or wheezing) mecobalamin (vitamin B12) 10,000 mcg recon soln 10,000 mcg IM .q 2 weeks omega-3 fatty acids-fish oil 1 EACH capsule,delayed release(DR/EC) 1 ea PO DAILY Patient Comments: Supplement ascorbic acid (vitamin C) 500 MG tablet 500 mg PO DAILY@0800 Patient Comments: Supplement epinephrine 0.3 MG syringe 0.3 mg IM X1 PRN (Reason: allergy) gabapentin 100 mg capsule 200 mg PO QHS Patient Comments: TAKE 2 CAPSULES BY MOUTH ONCE DAILY AT BEDTIME olopatadine 0.1 % drops 1 drp ophthalmic (eye) BID testosterone enanthate 200 mg/mL oil 200 mg IM UD Rx Instructions: Q2W cyclosporine [Restasis] 0.05 % dropperette 1 drp ophthalmic (eye) BID Rhopressa 0.02 % drops 1 drp LEFT EYE DAILY diazepam 10 MG tablet 10 mg PO BID PRN (Reason: seizure activity) Qty: 1 0RF Rx Instructions: 2 tabs as needed twice daily for 1 week, then 1 tab daily as needed for 1 week, then half a tab daily as needed for 1 week, then half a tab every other day as needed for 1 week, then half a tab every 3 days as needed for 1 week then stop. cyanocobalamin (vitamin B-12) 1,000 mcg/mL solution 1,000 mcg IM QMONTH nitroglycerin 0.4 mg tablet, sublingual 0.4 mg SUBLINGUAL Q5M PRN (Reason: Chest Pain) Qty: 25 6RF Referrals / Follow Up: Elijah Mullins DO [Primary Care Provider] - Disposition Disposition (needs filled in before D/C Order can be placed): [facility]
--- NOTE | 2023-07-02 16:21 | SDCEKG_ITS ---
Test Reason : CP Blood Pressure : / mmHG Vent. Rate : 067 BPM Atrial Rate : 067 BPM P-R Int : 182 ms QRS Dur : 084 ms QT Int : 376 ms P-R-T Axes : 053 -12 014 degrees QTc Int : 397 ms Normal sinus rhythm Inferior infarct , age undetermined Abnormal ECG No previous ECGs available Confirmed by ZHAO XAVIER, RACHEL ([id number]), editor continuity and script DIONNA MOORE ([id number]) on 07/06/2023 2:03:07 PM Referred By: MICHAEL Confirmed By:RACHEL CHURCHILL MD
--- NOTE | 2023-07-02 16:59 | PCM.DC.SUM ---
Providers Date of Admission: 06/25/23 Date of Discharge: 07/02/23 Primary Care Physician: Dr. Elijah Mullins, Consultations 06/26/23 00:44 Consult: Onc/Wound/medical detail representative Routine Comment: Reason for Consult:: wounds everywhere Reason For Visit: FTT DEBILITY Diagnosis Discharge Diagnosis (1) Failure to thrive: Status: Acute (2) Bilateral shoulder pain: Status: Resolved Code(s): M25.511 - Pain in right shoulder; M25.512 - Pain in left shoulder Plan 1. Acute debility secondary to deconditioning, PTSD, and chronic hypoxic respiratory failure-PT and OT will continue to see the patient, he will need short-term placement in a group home facility. #2 seizure disorder-patient states he takes Valium 10 mg twice daily as needed, he is also on Gabitril and phenobarbital #3 hyperlipidemia-patient is on atorvastatin #4 PTSD-patient is currently on prazosin #5 coronary artery disease-patient is currently on aspirin and Plavix, he is also on isosorbide #6 chronic hypoxic respiratory failure-patient remains on 3 L of oxygen via nasal cannula I do not feel the patient had rhabdomyolysis this admission Total clinical time spent by myself addressing the patient's medical issues, reviewing all of his data, and collaborating with patient's care team: 25 minutes Medications at Discharge Home Medications clopidogrel 75 mg tablet 75 mg PO DAILY ANTIPLATELET 03/03/14 aspirin 81 mg chewable tablet 81 mg PO DAILY@0800 HEART HEALTH 05/04/14 trazodone 100 mg tablet 100 mg PO QHS MENTAL HEALTH/SLEEP 04/03/15 isosorbide dinitrate 30 mg tablet 30 mg PO DAILY heart 01/07/18 simvastatin 20 mg tablet 20 mg PO QHS 02/13/18 cholecalciferol (vitamin D3) 50 mcg (2,000 unit) capsule 2,000 unit PO DAILY 05/26/19 phenobarbital 64.8 mg tablet 64.8 mg PO BID seizures 01/18/21 montelukast 10 mg tablet 10 mg PO DAILY PRN 02/02/23 timolol maleate 0.5 % eye drops 1 drp ophthalmic (eye) BID 06/22/23 oxycodone 10 mg tablet 10 mg PO TID 06/25/23 prazosin 2 mg capsule 4 mg PO DAILY 04/18/24 tiagabine 4 mg tablet (Gabitril) 4 mg PO 4X/DAY 06/25/23 albuterol sulfate 2.5 mg/3 mL (0.083 %) solution for nebulization 2.5 mg (3 mL) inhalation Q4H PRN PRN shortness of breath or wheezing #0 mL 07/02/23 aspirin 81 mg chewable tablet 81 mg PO DAILY@0800 #0 tabs 07/02/23 atorvastatin 10 mg tablet 10 mg PO QHS #0 tabs 07/02/23 clopidogrel 75 mg tablet 75 mg PO DAILY #0 tabs 07/02/23 diazepam 5 mg tablet 10 mg (2 x 5 mg) PO BID PRN PRN seizure activity #4 tabs 07/02/23 isosorbide dinitrate 30 mg tablet 30 mg PO DAILY #0 tabs 07/02/23 mecobalamin (vitamin B12) 1,000 mcg chewable tablet (B12 Active) 1,000 mcg PO DAILY #1 TAB 07/02/23 montelukast 10 mg tablet 10 mg PO DAILY #0 tabs 07/02/23 nystatin 100,000 unit/gram topical powder (Nyamyc) 1 applic topical BID #0 grams 07/02/23 oxycodone 5 mg tablet 10 mg (2 x 5 mg) PO TID 2 days #12 tabs 07/02/23 peg [id number] 1 %-0.2 %-0.2 % eye drops (Artificial Tears ([id number])) 1 drp EACH EYE Q2H PRN PRN DRY EYES #0 mL 07/02/23 phenobarbital 32.4 mg tablet 32.4 mg PO TID #9 tabs 07/02/23 phenobarbital 32.4 mg tablet 32.4 mg PO TID SEIZURES #10 tabs 07/02/23 phenobarbital 32.4 mg tablet 64.8 mg (2 x 32.4 mg) PO 0600,2200 #6 tabs 07/02/23 prazosin 1 mg capsule 4 mg (4 x 1 mg) PO QHS #0 caps 07/02/23 tiagabine 4 mg tablet 4 mg PO 4X/DAY #0 tabs 07/02/23 timolol maleate 0.5 % eye drops 1 drp ophthalmic (eye) BID #0 mL 07/02/23 trazodone 100 mg tablet 100 mg PO QHS #0 tabs 07/02/23 Hospital Course Operations None Procedures None Summary of Care Provided Minutes Spent on Discharge: 32 Hospital Course: 73-year-old white male presented to the emergency room at [facility] after experiencing mechanical fall at home and was unable to get up on his own, he had just been discharged from the hospital here at [facility] same day, he had been admitted for failure to thrive and mild rhabdomyolysis and possible breakthrough seizure. Patient was admitted to [place] [id number], he was seen by PT and OT, it was recommended that he go to a group home facility for short-term rehab services. Patient agreed to this. On 07/02/2023, patient was seen and examined: On examination he appeared in good health and spirits. Vital signs as documented. Skin warm and dry and without overt rashes. Neck without JVD, neck was supple, trachea midline, thyroid was normal. Lungs clear bilaterally, normal air movement was noted. Heart exam notable for regular rhythm, normal sounds and absence of murmurs, rubs or gallops. Abdomen unremarkable and without evidence of organomegaly, masses, or abdominal aortic enlargement. Bowel sounds are present, abdomen is not distended. Extremities nonedematous, no cyanosis was noted, no clubbing was noted. Neuro: Cranial nerves II through XII are grossly intact, no focal motor deficits were noted, sensation to light touch and pinprick intact, motor exam 5/5 throughout. Psych: Patient is alert and oriented x3, he does not appear anxious or depressed, he does not appear agitated. Patient appears stable for discharge to a group home facility on 07/02/2023. Weight / BMI Weight Weight: 95.2 kg Body Mass Index (BMI) 30.0 ABG / Lab / Microbiology Data 06/29/23 06:21 06/29/23 06:21 Meaningful Use Info Meaningful Use Meaningful Use Diagnoses (Choose all that apply): None applicable Ischemic Stroke Statin Dosing Therapy Reference: STATIN DOSE THERAPY REFERENCE: * Patients > 75 years receive moderate or high dose statin therapy. * Patients 75 years or YOUNGER should receive HIGH intensity statin dose unless contraindicated. You will be required to document reason for non-treatment if statin daily dose does not meet guidelines. HIGH DOSE STATIN THERAPY DAILY Atorvastatin > than or = to 40 mg Rosuvastatin > than or = to 20 mg Amlodipine + Atorvastatin > than or = to 2.5/40 mg Ezetimibe + Simvastatin 10/80 mg Simvastatin 80mg Discharge Plan Admission Admit Date/Time: 06/25/23 23:05 Primary Reason for Your Visit: Debility Attending Provider: Elijah Herrera Primary Care Provider: Elijah Mullins Consulting Providers: Elijah Herrera; John Lemus Discharge Orders/Prescriptions Prescriptions: New albuterol sulfate 2.5 mg /3 mL (0.083 %) Solution For Nebulization 2.5 mg inhalation Q4H PRN PRN (Reason: shortness of breath or wheezing) Qty: 0 0RF atorvastatin 10 mg Tablet 10 mg PO QHS Qty: 0 0RF clopidogrel 75 mg Tablet 75 mg PO DAILY Qty: 0 0RF aspirin 81 mg Tablet,Chewable 81 mg PO DAILY@0800 Qty: 0 0RF diazepam 5 mg Tablet 10 mg PO BID PRN PRN (Reason: seizure activity) Qty: 4 0RF Artificial Tears(is-vevp-urqo) 1-0.2-0.2 % Drops 1 drp EACH EYE Q2H PRN PRN (Reason: DRY EYES) Qty: 0 0RF isosorbide dinitrate 30 mg Tablet 30 mg PO DAILY Qty: 0 0RF montelukast 10 mg Tablet 10 mg PO DAILY Qty: 0 0RF oxycodone 5 mg Tablet 10 mg PO TID 2 Days Qty: 12 0RF prazosin 1 mg Capsule 4 mg PO QHS Qty: 0 0RF tiagabine 4 mg Tablet 4 mg PO 4X/DAY Qty: 0 0RF trazodone 100 mg Tablet 100 mg PO QHS Qty: 0 0RF nystatin [Nyamyc] 100,000 unit/gram Powder 1 applic topical BID Qty: 0 0RF Protocol: *Topical Application Instructions APPLICATION INSTRUCTIONS: groin timolol maleate 0.5 % Drops 1 drp ophthalmic (eye) BID Qty: 0 0RF phenobarbital 32.4 mg Tablet 64.8 mg PO 0600,2200 Qty: 6 0RF mecobalamin (vitamin B12) [B12 Active] 1,000 mcg tablet,chewable 1,000 mcg PO DAILY Qty: 1 0RF phenobarbital 32.4 mg Tablet 32.4 mg PO TID Qty: 9 0RF Continued clopidogrel 75 MG tablet 75 mg PO DAILY Patient Comments: Blood thinner aspirin 81 MG tablet,chewable 81 mg PO DAILY@0800 Patient Comments: Blood thinner for heart health trazodone 100 MG tablet 100 mg PO QHS Patient Comments: Sleep isosorbide dinitrate 30 MG tablet 30 mg PO DAILY simvastatin 20 MG tablet 20 mg PO QHS phenobarbital 64.8 mg tablet 64.8 mg PO BID Rx Instructions: with 32.4mg cholecalciferol (vitamin D3) 2,000 UNIT capsule 2,000 unit PO DAILY montelukast 10 mg tablet 10 mg PO DAILY PRN Patient Comments: take 1 tablet by mouth once daily timolol maleate 0.5 % drops 1 drp ophthalmic (eye) BID oxycodone 10 mg tablet 10 mg PO TID prazosin 2 mg capsule 4 mg PO DAILY tiagabine [Gabitril] 4 mg tablet 4 mg PO 4X/DAY phenobarbital 32.4 MG tablet 32.4 mg PO TID Qty: 10 0RF Discontinued albuterol sulfate [ProAir HFA] 90 mcg/actuation HFA aerosol inhaler 2 puff INHALATION Q4H PRN (Reason: shortness of breath or wheezing) mecobalamin (vitamin B12) 10,000 mcg recon soln 10,000 mcg IM .q 2 weeks omega-3 fatty acids-fish oil 1 EACH capsule,delayed release(DR/EC) 1 ea PO DAILY Patient Comments: Supplement ascorbic acid (vitamin C) 500 MG tablet 500 mg PO DAILY@0800 Patient Comments: Supplement epinephrine 0.3 MG syringe 0.3 mg IM X1 PRN (Reason: allergy) gabapentin 100 mg capsule 200 mg PO QHS Patient Comments: TAKE 2 CAPSULES BY MOUTH ONCE DAILY AT BEDTIME olopatadine 0.1 % drops 1 drp ophthalmic (eye) BID testosterone enanthate 200 mg/mL oil 200 mg IM UD Rx Instructions: Q2W cyclosporine [Restasis] 0.05 % dropperette 1 drp ophthalmic (eye) BID Rhopressa 0.02 % drops 1 drp LEFT EYE DAILY diazepam 10 MG tablet 10 mg PO BID PRN (Reason: seizure activity) Qty: 1 0RF Rx Instructions: 2 tabs as needed twice daily for 1 week, then 1 tab daily as needed for 1 week, then half a tab daily as needed for 1 week, then half a tab every other day as needed for 1 week, then half a tab every 3 days as needed for 1 week then stop. cyanocobalamin (vitamin B-12) 1,000 mcg/mL solution 1,000 mcg IM QMONTH nitroglycerin 0.4 mg tablet, sublingual 0.4 mg SUBLINGUAL Q5M PRN (Reason: Chest Pain) Qty: 25 6RF Referrals / Follow Up: Elijah Mullins DO [Primary Care Provider] - Disposition Disposition (needs filled in before D/C Order can be placed): Shelter Facility Charges/Coding Visit Charges Inpatient E&M: 63875 Disch Hosp >30min
[2023-07-02] MEDS: diazePAM 2 MG Tablet PO (17:00)
[2023-07-02] MEDS: Mag Hydrox/Al Hydrox/Simeth 30 ML UDC PO (17:00)
--- NOTE | 2023-07-02 17:00 | CASEMGMT ---
Social work -discharge note Received notification from Albina in admissions at [facility] nursing [facility]. Insurance authorization obtained. Updated physician. Convalescent exemption form completed in [facility]. Copy made for envelope to senior care facility and one for chart. Green sheet placed on chart for nursing to follow, and in case discharge paperwork is completed after usual business hours. This copywriter did leave a voicemail for patient's brother indicating to have an update on discharge plan and to either call this copywriter or the nursing unit back for an update. Also left the brothers phone number on Green sheet, for nursing to try again should discharge arrangements be made. Plan: discharge skilled level of care to [facility], convalescent exemption as . No other services requested or indicated -WICHO Cortez, MELLISA *This note was generated with [employer] dictation software. It may contain incorrect words, spelling, and punctuation that were not noted in review of the chart prior to signing*
--- NOTE | 2023-07-02 19:30 | NURSING ---
report called to Cameron at this time.
[2023-07-02] MEDS: Atorvastatin Calcium 10 MG Tablet PO (20:47)
[2023-07-02] MEDS: traZODone 100 MG Tablet PO (20:47)
[2023-07-02] MEDS: Prazosin HCl 1 MG Capsule 4 MG PO (20:47)
== END 2023-07-03 01:00 | disposition skilled nursing facility (03) | DRG 641 ==
LOC: ED 22:52 → MS3 23:52
PROVIDERS: Family Medicine; Admitting Provider Family Medicine; Emergency Provider Emergency Medicine; PCP Family Medicine; Visit Provider Internal Medicine
DX: R62.7 Adult failure to thrive (principal); J96.11 Chronic respiratory failure with hypoxia; M62.82 Rhabdomyolysis; G40.909 Epilepsy, unspecified, not intractable, without status epilepticus; N18.30 Chronic kidney disease, stage 3 unspecified; J44.9 Chronic obstructive pulmonary disease, unspecified; I12.9 Hypertensive chronic kidney disease with stage 1 through stage 4 chronic kidney disease, or unspecified chronic kidney disease; E78.5 Hyperlipidemia, unspecified; I25.10 Atherosclerotic heart disease of native coronary artery without angina pectoris; K21.9 Gastro-esophageal reflux disease without esophagitis; D75.1 Secondary polycythemia; M25.511 Pain in right shoulder; M25.512 Pain in left shoulder; Z68.30 Body mass index [BMI] 30.0-30.9, adult; Z95.5 Presence of coronary angioplasty implant and graft; Z79.02 Long term (current) use of antithrombotics/antiplatelets; R53.81 Other malaise; F43.10 Post-traumatic stress disorder, unspecified; Z79.82 Long term (current) use of aspirin; Z85.46 Personal history of malignant neoplasm of prostate; N40.0 Benign prostatic hyperplasia without lower urinary tract symptoms
CPT/HCPCS: 36415; 71045; 80048; 80053; 80184; 82550; 85025; 93005; 94640; 97110; 97162; 97166; 97530; 97535; 99283; J7030; A4216

== ENCOUNTER 2024-11-26 21:24 | Emergency (ER) | payer MEDICARE, MEDICAID, SELFPAY ==
[2024-11-26 21:25] VITALS: BP 116/53; PULSE 63; RESP 18; TEMP 37.7; O2SAT 94; BMI 29.7
--- NOTE | 2024-11-26 21:30 | CT_ITS ---
PROCEDURE: SPINE CERVICAL WITHOUT CONTRAS 11/26/2024 REASON FOR EXAM: INJURY/PAIN TECHNIQUE: Procedure Code: CTSPC Modality: CT Procedure: SPINE CERVICAL WITHOUT CONTRAS Coronal and Sagittal reconstruction series were provided. One or more dose reduction techniques were used (e.g., Automated exposure control, adjustment of the mA and/or kV according to patient size, use of iterative reconstruction technique. RADIATION DOSE SUMMARY: CTDlvol: Please see CT mGy DLP: Please see CT mGycm COMPARISON: None FINDINGS: Osseous: There is straightening and slight reversal of cervical lordosis. There are flowing ossifications along the anterior cervical margin consistent with diffuse idiopathic skeletal hyperostosis. Cervical facet joints are not subluxed or dislocated. Posterior cervical alignment is within normal limits. The atlantodental interval is preserved. Atlanto occipital and atlantoaxial articulations are within normal range. No acute fracture of the cervical spine seen. Severe degenerative changes are noted with disc space loss, anterior osteophytes, posterior bony ridging, facet arthropathy and bony proliferative change. If there are neurologic symptoms or radiculopathy, further assessment by MRI. Soft tissue: No focal prevertebral soft tissue swelling. No posterior paraspinal soft tissue hematoma. No cervical soft tissue emphysema. Vascular: Carotid calcifications noted. Vascular patency can not be assessed on this study. Lung apices: No acute abnormality at the visualized lung apices. CT/Spine Cervical without Contras IMPRESSION: No acute fracture of the cervical spine. - Other findings and recommendations discussed above. Reading Location: [id number]
--- NOTE | 2024-11-26 21:30 | CT_ITS ---
PROCEDURE: BRAIN/HEAD WITHOUT CONTRAST 11/26/2024 REASON FOR EXAM: INJURY/PAIN TECHNIQUE: Procedure Code: CTBR Modality: CT Procedure: BRAIN/HEAD WITHOUT CONTRAST Coronal and Sagittal reconstruction series were provided. One or more dose reduction techniques were used (e.g., Automated exposure control, adjustment of the mA and/or kV according to patient size, use of iterative reconstruction technique. RADIATION DOSE SUMMARY: CTDlvol: Please see CT mGy DLP: 1327.03 mGycm COMPARISON: None FINDINGS: Note: Images through the base of the brain and posterior fossa including the brainstem are slightly degraded by beam hardening artifact from the adjacent calvarium. Brain: There is no evidence of acute intracranial hemorrhage. Note is made that some parenchymal contusions may not be visible immediately. Consider follow-up imaging as clinically indicated. There is mild global parenchymal volume loss. No focal extra-axial fluid collection is seen. Appearance of the basal cisterns is unremarkable. There is no Chiari malformation. There is intracranial calcific atherosclerosis. No parenchymal changes are seen suggestive of cytotoxic edema to indicate an acute territorial vascular infarct. Note is made that CT changes may lag clinical findings an acute stroke. If indicated, consider follow-up imaging or diffusion-weighted MRI. There is no midline shift or herniation. No evidence of pneumocephalus. Incidental intracranial calcifications noted. Ventricles: Slight prominence of the ventricles, commensurate with degree of parenchymal volume loss. The ventricles do not appear obstructed. Pituitary: The pituitary fossa does not appear enlarged. The pituitary stalk does not appear deviated. Soft tissues: No pericranial scalp hematoma. There appears to be diffuse scalp edema of indeterminate significance. Osseous: No acute calvarial fracture. No suspicious bone lesion. Orbits: Postoperative change of the left ocular globe. Visualized paranasal sinuses: No fluid in the paranasal sinuses. Mastoids: No fluid or opacification of mastoid air cells. Middle ear cavities: The visualized middle ear cavities are not opacified. Soft tissue density opacifying the external auditory canals left worse than right. Correlation with direct clinical exam is advised for significance. CT/Brain/Head without Contrast IMPRESSION: No evidence of acute intracranial injury. No evidence of acute intracranial hemorrhage or acute calvarial fracture. - Other findings discussed above. Reading Location: [id number]
[2024-11-26 21:35] VITALS: O2SAT 97
--- OUTSIDE RECORDS SUMMARY | 2024-11-26 22:20 | XMS RPT_ITS | CCD ---
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 Kerry Burger Primary Care Provider Dr. Kerry Burger Referring Provider MD Fran Phoenix Attending Provider Dr. Kerry Burger Primary Care Provider Dr. Spencer Rangel Emergency Provider [phone] Dr. Irlanda Ruiz Attending Provider Dr. Irlanda Ruiz Admit Provider Dr. Irlanda Ruiz Other Provider Dr. John Lemus Attending Provider Dr. John Lemus Other Provider PHYSICIAN, NONE Attending Unavailable PHYSICIAN, NONE Primary Care Unavailable Dr. Fabiola Friend Emergency Provider Dr. Duran Betancourt Admit Provider Dr. Duran Betancourt Other Provider Dr. Kerry Herrera Attending Provider Dr. Kerry Herrera Other Provider Duran Betancourt Admitting Unavailable Kerry Burger Primary Care Unavailable Kerry Herrera Attending Unavailable Kerry Herrera Consulting Unavailable John Lemus Consulting Unavailable Kerry Burger Primary Care Unavailable Irlanda Ruiz Consulting Unavailable White, Irlanda L Admitting Unavailable Jojae, John Attending Unavailable White, Irlanda L Admitting Unavailable White, Irlanda L Consulting Unavailable Allan, John Attending Unavailable Kerry Burger Primary Care Unavailable Joppgemini, John Consulting Unavailable Harpreet, Kerry Primary Care Unavailable White, Irlanda L Attending Unavailable Duran Betancourt Consulting Unavailable Christiano Betancourtolas F Admitting Unavailable Joinnaeri, John Attending Unavailable Kerry Burger Primary Care Unavailable Jopperi, John Consulting Unavailable Tereletsjovany, Kerry Consulting Unavailable TerKerry malin Attending Unavailable Harpreet, Kerry Primary Care Unavailable Terdea, Kerry Referring Unavailable Gustavo Brito Attending UnavailKerry Brown Primary Care Unavailable Duran Betancourt F Referring Unavailable Jared Ngo Attending Unavailable HarpreetKerry collier Primary Care Unavailable John Castano Attending Unavailable HarpreetKerry collier Primary Care Unavailable Wilman Jimenez Attending Unavailable Kerry Burger DO Primary Care Provider Allergies Allergy Classification Reported Allergen(s) Allergy Type Date of Onset Reaction(s) Facility (11 sources) Cephalexin Drug Allergy 07-11-[address] [facility] Work Phone: (1 source) Ciprofloxacin Drug Allergy 09-04-19 19 [facility] Work Phone: (1 source) Morphine Drug Allergy 09-04-19 19 [facility] Work Phone: (2 sources) Phenytoin Drug Allergy 08-21-[address] [facility] Work Phone: (1 source) Pseudoephedrine Drug Allergy 09-04-19 19 [facility] Work Phone: (1 source) Sulfacetamide Drug Allergy 09-04-19 19 [facility] Work Phone: (1 source) CARBAMAZIPINE; Translations: [CARBAMAZIPINE] food allergy 09-04-19 19 [facility] Work Phone: (1 source) amLODIPine Drug Allergy 10-22-19 19 [facility] (9 sources) Bee pollen Drug Allergy 10-22-19 19 Anaphylaxis [facility] Work Phone: (10 sources) carBAMazepine Drug Allergy 07-11-19 06 Hives [facility] Work Phone: (2 sources) Ciprofloxacin Drug Allergy 07-11-19 06 [facility] Work Phone: (9 sources) Latex Propensity to adverse reactions to drug 10-22-19 19 Rash [facility] Work Phone: (11 sources) Phenytoin; Translations: [phenytoin sodium extended] Drug Allergy 07-11-19 06 Itching [facility] (1 source) Pseudoephedrine Drug Allergy 09-04-19 19 [facility] Work Phone: (10 sources) Sesame oil Propensity to adverse reactions to drug 07-11-19 06 Upset Stomach [facility] Work Phone: (10 sources) Sucralfate Drug Allergy 07-11-19 06 Hives [facility] (1 source) Sulfonamides (Antibiotic) Propensity to adverse reactions to drug 08-21-19 [facility] Work Phone: (1 source) Morphine And Related Propensity to adverse reactions to drug 08-21-19 [facility] Work Phone: (9 sources) amLODIPine; Translations: [amlodipine besylate] Drug Allergy 05-17-19 22 Upset Stomach [facility] (9 sources) Phenytoin; Translations: [phenytoin sodium] Drug Allergy 05-17-19 22 Hives [facility] (10 sources) Sulfonamides (Antibiotic); Translations: [Sulfa (Sulfonamide Antibiotics)] Propensity to adverse reactions 07-11-19 06 Unknown [facility] (1 source) Bee pollen Drug allergy (disorder) 06-25-19 24 [facility] (1 source) carBAMazepine Drug Allergy 06-25-19 24 [facility] (1 source) Cephalexin Drug Allergy 06-25-19 24 [facility] (1 source) Latex Drug allergy (disorder) 06-25-19 24 [facility] (1 source) Sesame oil Drug allergy (disorder) 06-25-19 24 [facility] (1 source) Sucralfate Drug Allergy 06-25-19 [facility] (1 source) Morphinan opioid Propensity to adverse reactions to drug 08-12-19 [facility] (1 source) Bees Propensity to adverse reactions 07-11-19 06 [facility] Medications Current Medications Medication Drug Class(es) Dates Sig (Normalized) Sig (Original) acetaminophen 325 mg oral tablet (3 sources) Start: 05-22-2021 acetaminophen (TYLENOL) tablet 650 mg Start: 05-17-2021 End: 05-22-2021 acetaminophen (TYLENOL) tabl et 1,000 mg Start: 05-17-2021 End: 05-17-2021 acetaminophen (OFIRMEV) infu linda 1,000 mg acetaminophen 325 mg / butalbital 50 mg / caffeine 40 mg oral tablet (1 source) Barbiturate, Central Nervous System Stimulant, Methylxanthine Start: 05-22-2021 msttfvmpsn-rhwqjurwyzgpi-jnx feine (FIORICET, ESGIC) per tablet 1 tablet acetaminophen 500 mg / HYDROcodone bitartrate 5 mg oral tablet (1 source) Opioid Agonist Start: 02-04-2012 take 1 tablet by mouth four times daily acetaminophen-HYDROcodone (VICODIN) 5-500 mg tablet Take 1 tablet by mouth four times daily. 02/04/2012 Active albuterol 0.83 mg/ml inhalation solution (9 sources) beta2-Adrenergi c Agonist Start: 07-02-2023 take 2.5 mg by inhalation every four hours as needed Albuterol Sulfate Active 2.5 MG INHALATION EVERY 4 HOURS NEEDED 0 July 02, 2023 12:00am Start: 03-05-2017 End: 07-02-2023 take 1 puff(s) by inhalation every four hours Albuterol Sulfate (Proair Hfa) 90 mcg/actuation HFA aerosol inhaler Discontinued 2 PUFF INHALATION Q4H March 05, 2017 1:00am July 02, 2023 3:54pm AMINO AC/WHEY PROT CON & ISOL (WHEY PROTEIN ORAL) (1 source) AMINO AC/WHEY CA OT CON & ISOL (WHEY PROTEIN ORAL) Take by mouth. Active amLODIPine 5 mg oral tablet (2 sources) Dihydropyridine Calcium Channel Radha Start: 05-19-2021 End: 05-19-2021 amLODIPine (NORVASC) tablet 5 mg aspirin 81 mg chewable tablet (11 sources) Platelet Aggregation Inhibitor, Nonsteroidal Anti-inflammatory Drug Start: 09-03-2018 ASPIR-LOW 81 MG TBEC 1 tablet daily ASPIRIN [id number] Eloy Barrientos MD Start: 05-04-2014 take 81 mg by mouth once daily Aspirin Active 81 MG PO DAILY@0800 0 July 02, 2023 12:00am Start: 02-04-2012 take 1 tablet by ishmael th once daily at mealtime Aspirin 81 mg Tab Take 1 tablet by mouth once daily. Take with food. 30 tablet 11 02/04/2012 Active atorvastatin 10 mg oral tablet (1 source) HMG-CoA Reductase Inhibitor Start: 07-02-2023 take 10 mg by mouth at bedtime Atorvastatin Active 10 MG PO AT BEDTIME 0 July 02, 2023 12:00am bacitracin 0.5 unt/mg / polymyxin b 10 unt/mg ophthalmic ointment (1 source) Polymyxin-class Antibacterial Start: 05-22-2021 bacitracin-polymyxi n b (POLYSPORIN) ophthalmic ointment cholecalciferol 0.05 mg oral capsule (9 sources) Vitamin D Start: 03-17-2012 take 2000 [IU] by mouth once daily Cholecalciferol (Vitamin D3) Active 2000 UNIT PO DAILY May 26, 2019 12:00am clopidogrel 75 mg oral tablet (14 sources) P2Y12 Platelet Inhibitor Start: 06-22-2008 take 75 mg by mouth once daily Clopidogrel Active 75 MG PO DAILY 0 July 02, 2023 12:00am Cyclosporine (Cyclosporine 0.05 % Eye Drops In A Dropperette) 0.05 % dropperette (1 source) Start: 06-22-2023 Cyclosporine (Cyclosporine 0.05 % Eye Drops In A Dropperette) 0.05 % dropperette Active 1 DRP OPHTHALMIC TWICE A DAY June 22, 2023 12:00am DAILY MULTIPLE TAB (1 source) Start: 07-10-2005 DAILY MULTIPLE TAB Take one(1) tablet daily. 0 07/10/2005 Active diazePAM 5 mg oral tablet (14 sources) Benzodiazepine Start: 07-02-2023 take 10 mg by mouth twice daily as needed Diazepam Active 10 MG PO TWICE DAILY NEEDED July 02, 2023 12:00am Start: 06-25-2023 End: 07-02-2023 take 2 tablets by mouth twice daily as needed, then take 1 tablet by mouth once daily as needed, then take 0.5 tablet by mouth once daily as needed, then take 0.5 tablet by mouth every other day as needed, then take 0.5 tablet by mouth once as needed Diazepam Discontinued 10 MG PO TWICE A DAY June 25, 2023 11:22am July 02, 2023 3:54pm 2 tabs as needed twice daily for 1 week, then 1 tab daily as needed for 1 week, then half a tab daily as needed for 1 week, then half a tab every other day as needed for 1 week, then half a tab every 3 days as needed for 1 week then stop. Start: 05-17-2021 diazePAM (TEDDY UM) tablet 10 mg Start: 10-21-2018 End: 06-25-2023 take 10 mg by mouth three times daily Diazepam Discontinued 10 MG PO THREE TIMES A DAY October 21, 2018 12:00am June 25, 2023 11:22am Start: 09-03-2018 VALIUM 5 MG TA BS 1 tablet dailyas needed DIAZEPAM [id number] Eloy Barrientos MD docusate sodium 100 mg oral capsule (3 sources) Start: 05-17-2021 take 100 mg by mouth twice daily 100 mg, Oral, 2 TIMES DAILY, First dose on Thu05/17/21 at 1415 Start: 08-20-2018 DOCUSATE SODIU M 100 MG CAPS 1 capsule twice daily DOCUSATE SODIUM [id number] Eloy Barrientos MD 0.3 ml enoxaparin sodium 100 mg/ml prefilled syringe (1 source) Low Molecular Weight Heparin Start: 05-18-2021 enoxaparin (LOVENOX) injection 30 mg eszopiclone 3 mg oral tablet (1 source) Start: 08-11-2012 take 1 tablet by mouth at bedtime as needed for sleep eszopiclone (LUNESTA) 3 mg Tab Indications: Insomnia Take 1 tablet by mouth at bedtime as needed (sleep). 30 tablet 3 08/11/2012 Active glycerin 2 mg/ml / hypromellose 2 mg/ml / polyethylene glycol 400 10 mg/ml ophthalmic solution (1 source) Non-Standardized Chemical Allergen Start: 07-02-2023 Peg 400-Hypromellose -Glycerin (Artificial Tears(Pg-Hypm-Gl yc)) 1-0.2-0.2 % Drops Active 1 DRP EACH EYE EVERY 2 HOURS NEEDED 0 July 02, 2023 12:00am 1 ml hydrALAZINE hydrochloride 20 mg/ml injection (1 source) Arteriolar Vasodilator Start: 05-17-2021 hydrALAZINE (APRESOLINE) injection 10 mg hydroCHLOROthiazide 25 mg / valsartan 320 mg oral tablet (1 source) Thiazide Diuretic, Angiotensin 2 Receptor Radha Start: 01-17-2015 Valsartan-Hydroc hlorothiazide 320-25 mg per tablet 01/17/2015 Active isosorbide dinitrate 30 mg oral tablet (13 sources) Nitrate Vasodilator Start: 07-02-2023 take 30 mg by mouth once daily Isosorbide Dinitrate Active 30 MG PO DAILY 0 July 02, 2023 12:00am Start: 05-19-2021 isosorbide din itrate (ISORDIL) tablet 30 mg Start: 01-07-2018 End: 05-19-2021 take 30 mg by mouth once daily Isosorbide Dinitrate Ac tive 30 MG PO DAILY January 07, 2018 12:00am labetalol hydrochloride 5 mg/ml injectable solution (2 sources) beta-Adrenergic Radha Start: 05-17-2021 labetalol (NORMODYNE;TRANDATE) injection 10 mg Start: 05-16-2021 End: 05-16-2021 labetalol (NORMODYNE;TRANDAT E) 5 MG/ML injection lidocaine 0.04 mg/mg medicated patch (17 sources) Antiarrhythmic, Amide Local Anesthetic Start: 05-18-2021 lidocaine 4 % external patch 1 patch Start: 01-18-2021 End: 06-22-2023 Lidocaine Discontinued 1 NANDO LIC TOPICAL DAILY January 18, 2021 1:00am June 22, 2023 3:58pm Start: 01-18-2021 End: 02-02-2023 apply 1 dose topically once daily Lidocaine (Salonpas (Lidocaine)) 4 % adhesive patch,medicated Discontinued 1 PATCH TOPICAL DAILY January 18, 2021 1:00am February 02, 2023 3:38pm Magnesium (1 source) Start: 03-17-2012 take 1 tablet by mouth once daily Magnesium 250 mg Tab Indications: HTN (hypertension) Take 1 tablet by mouth once daily. 0 03/17/2012 Active mecobalamin 1 mg chewable tablet (9 sources) Start: 07-02-2023 take 1 tablet by mouth once daily Mecobalamin (Vitamin B12) (B12 Active) 1,000 mcg tablet,chewable Active 1000 MCG PO DAILY 1 July 02, 2023 12:00am Start: 01-18-2021 inject 08256 ug by i ntramuscular injection every other week Mecobalamin (Vitamin B12) Active 42238 MCG IM .q 2 weeks January 18, 2021 10:30am Start: 01-18-2021 End: 07-02-2023 inject 57075 ug by intramuscular injection every other week Mecobalamin (Vitamin B12) Discontinued 77640 MCG IM .q 2 weeks January 18, 2021 1:00am July 02, 2023 3:47pm Start: 01-18-2021 inject 76256 ug by i ntramuscular injection every other week Mecobalamin (Vitamin B12) Active 73626 MCG IM .q 2 weeks January 18, 2021 12:00am Start: 01-18-2021 inject 54608 ug by i ntramuscular injection every other week Mecobalamin (Vitamin B12) Active 22560 MCG IM .q 2 weeks January 18, 2021 1:00am melatonin 3 mg oral tablet (3 sources) Start: 05-17-2021 take 3 mg by mouth once daily 3 mg, Oral, NIGHTLY, First dose on Thu05/17/21 at 2100 Start: 08-20-2018 MELATONIN 3 MG TABS 1 tablet daily as needed MELATONIN [id number] Eloy Barrientos MD 24 hr metoprolol succinate 50 mg extended release oral tablet (1 source) beta-Adrenergic Radha Start: 02-04-2012 take 1 tablet by mouth once daily metoprolol succinate XL, long acting, (TOPROL XL) 50 mg 24 hr tablet Take 1 tablet by mouth once daily. 0 02/04/2012 Active miconazole nitrate 0.02 mg/mg topical powder (2 sources) Azole Antifungal Start: 05-17-2021 miconazole (MICOTIN) 2 % powder Start: 08-20-2018 miconazole (IA COTIN) 2 % powder Apply topically 2 times daily. 45 g 1 08/20/2018 Suspended montelukast 10 mg oral tablet (7 sources) Leukotriene Receptor Antagonist Start: 08-25-2012 take 10 mg by mouth once daily Montelukast Active 10 MG PO DAILY 0 July 02, 2023 12:00am 1 ml naloxone hydrochloride 0.4 mg/ml injection (1 source) Opioid Antagonist Start: 05-21-2021 naloxone (NA RCAN) injection 0.4 mg 24 hr nicotine 0.875 mg/hr transdermal system (1 source) Cholinergic Nicotinic Agonist Start: 05-22-2021 nicotine (NICODERM CQ) 21 MG/24HR 1 patch nystatin 100 unt/mg topical powder (1 source) Polyene Antifungal Start: 07-02-2023 Nystatin (N yamyc) 100,000 unit/gram Powder Active 1 APPLIC TOPICAL TWICE A DAY 0 July 02, 2023 12:00am [place]-3 Fatty Acids-Fish Oil (8 sources) Start: 05-04-2014 [place]-3 Fatty Acids-Fish Oil Active 1 EACH PO DAILY May 04, 2014 7:18pm Start: 05-04-2014 End: 07-02-2023 [place]-3 Fatty Acids-Fish Oil Discontinued 1 EACH PO DAILY May 04, 2014 1:00am July 02, 2023 3:42pm Start: 05-04-2014 [place]-3 Fatty Acids-Fish Oil Active 1 EACH PO DAILY May 04, 2014 12:00am Start: 05-04-2014 [place]-3 Fatty Acids-Fish Oil Active 1 EACH PO DAILY May 04, 2014 1:00am ondansetron (ZOFRAN-ODT) disintegrating tablet 4 mg (1 source) Start: 05-16-2021 ondansetron (ZOFRAN-ODT) disintegrating tablet 4 mg OTC PRODUCT (1 source) Start: 10-20-2006 OTC PRODUCT om ega-3 0 10/20/2006 Active oxyCODONE hydrochloride 5 mg oral tablet (17 sources) Opioid Agonist Start: 07-02-2023 take 10 mg by mouth three times daily Oxycodone Active 10 MG PO THREE TIMES A DAY 12 2 July 02, 2023 Start: 05-22-2021 End: 05-27-2021 oxyCODONE (ROXICODONE) 5 MG immediate release tablet Indications: Closed nondisplaced lateral mass fracture of first cervical vertebra, initial encounter ([facility]) Take 1 tablet by mouth every 6 hours as needed for Pain for up to 5 days. Intended supply: 5 days. Take lowest dose possible to manage pain 20 tablet 0 05/22/2021 05/27/2021 Active Start: 05-18-2021 oxyCODONE (CHRISTIE ICODONE) immediate release tablet 10 mg Start: 05-17-2021 End: 05-18-2021 oxyCODONE (ROXICODONE) immed iate release tablet 5 mg Start: 08-16-2018 End: 06-25-2023 take 10 mg by mouth three times daily Oxycodone Discontinued 10 MG PO THREE TIMES A DAY July 06, 2019 12:00am June 25, 2023 11:19am OXYCODONE HCL (O XYCODONE ORAL) Take by mouth three times daily as needed. Active PHENobarbital 32.4 mg oral tablet (20 sources) Start: 07-02-2023 Phenobarbital Active 64.8 MG PO 0600,2200 July 02, 2023 12:00am Start: 05-17-2021 End: 05-17-2021 PHENobarbital (LUMINAL) inje ction 65 mg Start: 01-18-2021 take 129.6 mg by ishmael th at bedtime Phenobarbital Active 129.6 MG PO AT BEDTIME January 18, 2021 10:27am Start: 05-26-2019 End: 07-02-2023 take 32.4 mg by mouth three times daily Phenobarbital Active 32.4 MG PO THREE TIMES A DAY July 02, 2023 4:58pm Start: 10-22-2018 End: 05-26-2019 take 32.4 mg by mouth twice daily Phenobarbital Discontinued 32.4 MG PO TWICE A DAY 0 October 22, 2018 3:55pm May 26, 2019 11:05pm Start: 09-03-2018 PHENOBARBITAL 97.2 MG TABS 1 tablet 3 times daily PHENOBARBITAL [id number] Eloy Barrientos MD Start: 08-10-2018 take 32.4 mg by mout h three times daily 32.4 mg, Oral, 3 TIMES DAILY, First dose on Thu05/17/21 at 1430 Start: 05-03-2018 End: 01-18-2021 take 64.8 mg by mouth twice daily Phenobarbital Active 64.8 MG PO TWICE A DAY January 18, 2021 10:27am with 32.4mg Start: 04-03-2015 End: 10-22-2018 take 32.4 mg by mouth three times daily Phenobarbital Discontinued 32.4 MG PO THREE TIMES A DAY April 03, 2015 1:00am October 22, 2018 3:55pm Start: 05-05-2014 End: 04-03-2015 take 32.4 mg by mouth three times daily Phenobarbital Discontinued 32.4 MG PO THREE TIMES A DAY 1 May 05, 2014 3:53pm April 03, 2015 12:28pm Start: 05-04-2014 End: 05-05-2014 take 90 mg by mouth three times daily Phenobarbital Discontinued 90 MG PO THREE TIMES A DAY May 04, 2014 1:00am May 05, 2014 3:53pm Start: 08-11-2012 take 3 tablets by mo ut three times daily PHENobarbital 30 mg tablet Indications: Other convulsions , Epilepsy (HCC) Take 3 tablets by mouth three times daily. 270 tablet 5 08/11/2012 Active PHENOBARBITAL, BULK, MISC (1 source) PHENOBARBITAL, B ULK, MISC 64 mg twice daily. Active polyethylene glycol 3350 21338 mg powder for oral solution (2 sources) Osmotic Laxative Start: 05-19-2021 polyethylene glycol (GLYCOLAX) packet 17 g Start: 09-03-2018 MIRALAX POWD 2 POLYETHYLENE GLYCOL 3350 [id number] Eloy Barrientos MD potassium gluconate 2.5 meq oral tablet (1 source) Start: 03-17-2012 take 1 tablet by mouth once daily Potassium 99 mg Tab Indications: HTN (hypertension) Take 1 tablet by mouth once daily. 0 03/17/2012 Active prazosin 1 mg oral capsule (19 sources) alpha-Adrenergi c Radha Start: 07-02-2023 take 4 mg by mouth at bedtime Prazosin Active 4 MG PO AT BEDTIME 0 July 02, 2023 12:00am Start: 06-25-2023 take 4 mg by mouth once daily Prazosin Active 4 MG PO DAILY June 25, 2023 12:00am Start: 01-18-2021 End: 02-02-2023 take 4 mg by mouth at bedtime Prazosin Discontinued 4 MG PO AT BEDTIME January 18, 2021 10:28am February 02, 2023 3:33pm Start: 07-06-2019 End: 01-18-2021 take 2 mg by mouth at bedtime Prazosin Discontinued 2 MG PO AT BEDTIME July 06, 2019 12:00am January 18, 2021 10:31am pregabalin 25 mg oral capsule (2 sources) Start: 05-21-2021 End: 06-21-2021 take 1 capsule by mouth twice daily pregabalin (LYRICA) 25 MG capsule Indications: Closed nondisplaced lateral mass fracture of first cervical vertebra, initial encounter ([facility]) Take 1 capsule by mouth 2 times daily for 30 days. 60 capsule 0 05/22/2021 06/21/2021 Active ramelteon 8 mg oral tablet (1 source) Melatonin Receptor Agonist take 1 tablet by mouth once daily at bedtime ramelteon (ROZEREM) 8 mg tablet Take 8 mg by mouth daily at bedtime. Active sennosides, [facility] 8.6 mg oral tablet (2 sources) Start: 05-19-2021 senna (SENOKOT ) tablet 8.6 mg Start: 09-03-2018 SENNA 8.6 MG T ABS 1 tablet daily SENNOSIDES [id number] Eloy Barrientos MD simvastatin 20 mg oral tablet (10 sources) HMG-CoA Reductase Inhibitor Start: 10-18-2012 take 20 mg by mouth at bedtime Simvastatin Active 20 MG PO AT BEDTIME February 13, 2018 1:00am 5 ml sodium chloride 9 mg/ml injection (3 sources) Start: 05-16-2021 0.9 % sodium chloride infusion Start: 05-16-2021 sodium chlorid e flush 0.9 % injection 5-40 mL tamsulosin hydrochloride 0.4 mg oral capsule (1 source) alpha-Adrenergic Radha Start: 05-19-2021 tamsulosin (FLOMAX) capsule 0.4 mg tiaGABine hydrochloride 4 mg oral tablet (20 sources) Anti-epileptic Agent Start: 06-25-2023 take 4 mg by mouth four times daily Tiagabine Active 4 MG PO 4 TIMES DAILY 0 July 02, 2023 12:00am Start: 01-08-2015 End: 01-18-2021 take 4 mg by mouth four times daily Tiagabine Discontinued 4 MG PO 4 TIMES DAILY January 12, 2017 1:00am January 18, 2021 10:29am Start: 05-04-2014 End: 05-05-2014 take 1 tablet by mouth once daily Tiagabine (Gabitril) 4 MG tablet Discontinued 4 MG PO DAILY May 04, 2014 1:00am May 05, 2014 3:44pm Timolol Maleate (5 sources) beta-Adrenergic Radha Start: 07-02-2023 Timolo l Maleate Active 1 DRP OPHTHALMIC TWICE A DAY 0 July 02, 2023 12:00am Start: 06-22-2023 Timolol Maleat e Active 1 DRP OPHTHALMIC TWICE A DAY June 22, 2023 12:00am traZODone hydrochloride 100 mg oral tablet (14 sources) Serotonin Reuptake Inhibitor Start: 05-18-2021 End: 05-22-2021 take 100 mg by mouth once daily 100 mg, Oral, NIGHTLY, First dose on 05/18/21 at 2100 Start: 08-11-2012 take 100 mg by mouth at bedtim e Trazodone Active 100 MG PO AT BEDTIME 0 July 02, 2023 12:00am UBIDECARENONE (COQ-10 ORAL) (1 source) UBIDECARENONE (C OQ-10 ORAL) Take by mouth. Active Vitamin B Complex (9 sources) Start: 01-19-2018 Vitamin B Comp shaneka Active 1 EACH PO DAILY January 19, 2018 8:38am Start: 01-19-2018 End: 02-02-2023 Vitamin B Complex Discontinu ed 1 EACH PO DAILY January 19, 2018 1:00am February 02, 2023 3:35pm Start: 01-19-2018 End: 02-02-2023 Vitamin B Complex Discontinu ed 1 EACH PO DAILY January 19, 2018 12:00am February 02, 2023 2:35pm Start: 01-19-2018 Vitamin B Comp shaneka Active 1 EACH PO DAILY January 19, 2018 12:00am Start: 01-19-2018 Vitamin B Comp shaneka Active 1 EACH PO DAILY January 19, 2018 1:00am VITAMIN B COMPLE X (SUPER B COMPLEX ORAL) Take by mouth. Active zolpidem tartrate 12.5 mg extended release oral tablet (1 source) gamma-Aminobutyric Acid-ergic Agonist Start: 01-08-2015 Zolpidem (AMBIEN CR) 12.5 mg CR tablet 01/08/2015 Active Completed/Discontinued Medications Medication Drug Class(es) Dates Sig (Normalized) Sig (Original) acetaminophen 325 mg / oxyCODONE hydrochloride 10 mg oral tablet (8 sources) Opioid Agonist Start: 06-15-2017 End: 07-06-2019 take 1 tablet by mouth every eight hours as needed Oxycodone-Acetamino phen Discontinued 1 TABLET PO EVERY 8 HOURS NEEDED June 15, 2017 12:00am July 06, 2019 10:02am ALPRAZolam 2 mg oral tablet (9 sources) Benzodiazepine Start: 02-13-2018 End: 07-06-2019 take 2 mg by mouth at bedtime Alprazolam Discontinued 2 MG PO AT BEDTIME February 13, 2018 1:00am July 06, 2019 10:04am Start: 10-18-2012 ALPRAZolam (XA NAX) 1 mg tablet Indications: Insomnia 2 mg. Take two tablet at bed time. 10/18/2012 Active ascorbic acid 500 mg oral tablet (9 sources) Vitamin C Start: 04-03-2015 End: 07-02-2023 take 500 mg by mouth once daily Ascorbic Acid (Vitamin C) Discontinued 500 MG PO DAILY@0800 April 03, 2015 1:00am July 02, 2023 3:46pm Start: 07-10-2005 VITAMIN C 500 MG TAB Take 1 tablet twice daily 0 07/10/2005 Active azelastine hydrochloride 0.137 mg/actuat metered dose nasal spray (8 sources) Histamine-1 Receptor Antagonist Start: 10-21-2018 End: 07-06-2019 Azelastine Discontinued 2 SPRAY NASAL TWICE A DAY October 21, 2018 12:00am July 06, 2019 10:04am bisacodyl 10 mg rectal suppository (1 source) Stimulant Laxative Start: 05-20-2021 End: 05-20-2021 bisacodyl (DULCOLAX) suppository 10 mg brimonidine tartrate 1 mg/ml ophthalmic solution (8 sources) alpha-Adrenergic Agonist Start: 10-21-2018 End: 06-22-2023 Brimonidine Discontinued 1 DRP EACHEYE TWICE A DAY October 21, 2018 12:00am June 22, 2023 3:58pm calcium chloride 0.0014 meq/ml / potassium chloride 0.004 meq/ml / sodium chloride 0.103 meq/ml / sodium lactate 0.028 meq/ml injectable solution (1 source) Start: 05-17-2021 End: 05-17-2021 lactated ringers infusion castor oil 0.788 mg/mg / maltese balsam 0.087 mg/mg topical ointment (1 source) Standardized Chemical Allergen Start: 08-21-2018 Balsam [place] O il (VENELEX) OINT ointment Apply topically daily 0 08/21/2018 Suspended codeine sulfate 60 mg oral tablet (1 source) Opioid Agonist Start: 09-03-2018 CODEINE SULFAT E 60 MG TABS 1-2 tablet every 6 hours CODEINE SULFATE [id number] Eloy Barrientos MD cyclobenzaprine hydrochloride 10 mg oral tablet (1 source) Muscle Relaxant Start: 05-18-2021 End: 05-21-2021 cyclobenzaprine (FLEXERIL) tablet 5 mg Cyclosporine (Restasis) 0.05 % dropperette (3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 [address] CA,Total 9.0 mg/dL Normal 8.5-10.1 [facility] Comment on above: Performed By: #### L 500.2500, L100.0100, L300.3900 #### [facility] [address] [place], [address] Chloride [Moles/Vol] 100 mmol/L Normal 98-107 [facility] Comment on above: Performed By: #### L 500.2500, L100.0100, L300.3900 #### [facility] [address] [place], [address] CO2 [Moles/Vol] 33.0 mmol/L High 21.0-32.0 [facility] Comment on above: Performed By: #### L 500.2500, L100.0100, L300.3900 #### [facility] [address] [place], [address] Creatinine [Mass/Vol] 1.22 mg/dL Normal 0.70-1.30 [facility] Comment on above: Result Comment: The validity of the calculated GFR GFRAA in patients over 70 years has not been determined. Clinical correlation is essential. Performed By: #### L 500.2500, L100.0100, L300.3900 #### [facility] [address] [place], [address] ECRCL 60.59 ml/min Normal [facility] Comment on above: Performed By: #### L 500.2500, L100.0100, L300.3900 #### [facility] [address] [place], [address] EST GFR - AA 74 mL/min Normal >60 [facility] Comment on above: Result Comment: Afri can [place] GFR Calc Performed By: #### L 500.2500, L100.0100, L300.3900 #### [facility] [address] [place], [address] GAP 3 Low 5-15 [facility] Comment on above: Performed By: #### L 500.2500, L100.0100, L300.3900 #### [facility] [address] [place], [address] GFR/1.73 sq M.predicted among non-blacks MDRD (S/P/Bld) [Vol rate/Area] 62 mL/min/{1.73_m2} Normal >60 [facility] Comment on above: Result Comment: Non- GFR Calc Performed By: #### L 500.2500, L100.0100, L300.3900 #### [facility] [address] [place], [address] Globulin (S) [Mass/Vol] 3.8 g/dL Normal 2.2-4.2 [facility] Comment on above: Performed By: #### L 500.2500, L100.0100, L300.3900 #### [facility] [address] [place], [address] Glucose [Mass/Vol] 127 mg/dL High 74-106 [facility] Comment on above: Result Comment: Fast ing Glucose result greater than or equal to 126 mg/dL suggests DIABETES MELLITUS per A.D.A. criteria. Performed By: #### L 500.2500, L100.0100, L300.3900 #### [facility] [address] [place], [address] Potassium [Moles/Vol] 4.1 mmol/L Normal 3.5-5.1 [facility] Comment on above: Performed By: #### L 500.2500, L100.0100, L300.3900 #### [facility] [address] [place], [address] Sodium [Moles/Vol] 136 mmol/L Normal 136-145 [facility] Comment on above: Performed By: #### L 500.2500, L100.0100, L300.3900 #### [facility] [address] [place], [address] T PROT 6.9 g/dL Normal 6.4-8.2 [facility] Comment on above: Performed By: #### L 500.2500, L100.0100, L300.3900 #### [facility] [address] [place], [address] Urea nitrogen [Mass/Vol] 15 mg/dL Normal 7-18 [facility] Comment on above: Performed By: #### L 500.2500, L100.0100, L300.3900 #### [facility] [address] [place], [address] Determination of erythrocyte mean corpuscular volume (MCV)Ordered By: Irlanda Ruiz on 06-29-2023 MCV (RBC) [Entitic vol] 102.2 fL 80-94 [facility] Erythrocyte distribution wid th ratioOrdered By: [facility] on 06-29-2023 Erythrocyte distribution width (RBC) [Ratio] 13.0 % 11.6-14.6 [facility] Erythrocyte distribution wid th standard deviationOrdered By: [facility] on 06-29-2023 Erythrocyte distribution width (RBC) [Entitic vol] 48.3 fL 35.1-43.9 [facility] Hematocrit Auto (Bld) [Volum e fraction]Ordered By: Irlanda Joseph on 06-29-2023 Hematocrit (Bld) [Volume fraction] 46.7 % 40-54 [facility] Immature granulocytes/100 WB C Auto (Bld)Ordered By: Irlanda Joseph on 06-29-2023 Immature granulocytes/100 WBC (Bld) 4.200 % 0.0-0.9 [facility] Comment on above: IG% - Immature Granu locytes (promyelocytes, myelocytes and metamyelocytes) > 1% indicates that a LEFT SHIFT is Present. Laboratory - Chemistry and C hemistry - challengeOrdered By: Irlanda Ruiz on 06-29-2023 Albumin/Globulin [Mass ratio] 0.8 {ratio} 0.9-2.4 [facility] ALP [Catalytic activity/Vol] 83 U/L 45-117 [facility] ALT [Catalytic activity/Vol] 34 U/L 16-61 [facility] CO2 [Moles/Vol] 33.0 mmol/L 21.0-32.0 [facility] Globulin (S) [Mass/Vol] 3.8 g/dL 2.2-4.2 [facility] Urea nitrogen/Creatinine [Mass ratio] 12.3 mg/mg 10-20 [facility] - Hematology and Cell countsOrdered By: Irlanda Ruiz on 06-29-2023 MCH (RBC) [Entitic mass] 32.2 pg 27.0-32.0 [facility] MCHC (RBC) [Mass/Vol] 31.5 g/dL 32-36 [facility] Nucleated RBC/100 WBC (Bld) [Ratio] 0 % 0-5 [facility] Platelet mean volume (Bld) [Entitic vol] 10.3 fL 6.2-12.0 [facility] Platelets (Bld) [#/Vol] 142 10*3/uL 150-450 [facility] No Panel InformationOrdered By: Irlanda Ruiz on 06-29-2023 Estimated Creatinine Clearance Calc 60.59 ml/min [facility] Estimated GFR (MDRD) Amer 74 mL/min >60 [facility] Comment on above: GFR Calc Estimated GFR (MDRD) Non-Af Amer 62 mL/min >60 [facility] Comment on above: Non- GFR Calc RBC Auto (Bld) [#/Vol]Ordere d By: Irlanda Ruiz on 06-29-2023 RBC (Bld) [#/Vol] 4.57 10*6/uL 4.6-6.[address] [facility] Serum or plasma calcium libra urement (mass/volume)Ordered By: Irlanda Ruiz on 06-29-2023 Calcium [Mass/Vol] 9.0 mg/dL 8.5-10.1 [facility] Serum or plasma creatinine m easurement (mass/volume)Ordered By: Irlanda Ruiz on 06-29-2023 Creatinine [Mass/Vol] 1.22 mg/dL 0.70-1.30 [facility] Comment on above: The validity of the calculated GFR & GFRAA in patients over 70 years has not been determined. Clinical correlation is essential. Serum or plasma urea nitroge n measurement (mass/volume)Ordered By: Irlanda Ruiz on 06-29-2023 Urea nitrogen [Mass/Vol] 15 mg/dL 7-18 [facility] Thin prep Papanicolaou smear with manual screeningOrdered By: Irlanda Joseph on 06-29-2023 Thin prep Papanicolaou smear with manual screening 3.1 g/dL 3.2-5.0 [facility] Thin prep Papanicolaou smear with manual screening 18 U/L 15-37 [facility] Thin prep Papanicolaou smear with manual screening 3 5-15 [facility] CBC W/Diff, Automatedon 06-08 Absolute Lymph 0.97 X10 3/uL Normal 0.83-4.51 [facility] Comment on above: Performed By: #### L 500.4050, L501.3620, L100.0100 #### [facility] [address] [place], [address] Absolute Neut 4.8 X10 3/uL Normal 2.0-7.7 [facility] Comment on above: Performed By: #### L 500.4050, L501.3620, L100.0100 #### [facility] [address] [place], [address] Basophils/100 WBC (Bld) 1.6 % High 0-1 [facility] Comment on above: Performed By: #### L 500.4050, L501.3620, L100.0100 #### [facility] [address] [place], [address] Eosinophils/100 WBC (Bld) 3.1 % Normal 0-5 [facility] Comment on above: Performed By: #### L 500.4050, L501.3620, L100.0100 #### [facility] [address] [place], [address] Erythrocyte distribution width (RBC) [Ratio] 12.8 % Normal 11.6-14.6 [facility] Comment on above: Performed By: #### L 500.4050, L501.3620, L100.0100 #### [facility] [address] [place], [address] Hematocrit (Bld) [Volume fraction] 48.4 % Normal 40-54 [facility] Comment on above: Performed By: #### L 500.4050, L501.3620, L100.0100 #### [facility] [address] [place], [address] Hemoglobin (Bld) [Mass/Vol] 15.3 g/dL Normal 13.0-16.5 [facility] Comment on above: Performed By: #### L 500.4050, L501.3620, L100.0100 #### [facility] [address] [place], [address] IG% 4.000 High 0.0-0.9 [facility] Comment on above: Result Comment: IG% - Immature Granulocytes (promyelocytes, myelocytes and metamyelocytes) > 1% indicates that a LEFT SHIFT is Present. Performed By: #### L 500.4050, L501.3620, L100.0100 #### [facility] [address] [place], [address] Lymphocytes/100 WBC (Bld) 12.9 % Low 19-41 [facility] Comment on above: Performed By: #### L 500.4050, L501.3620, L100.0100 #### [facility] [address] [place], [address] MCH (RBC) [Entitic mass] 32.6 pg High 27.0-32.0 [facility] Comment on above: Performed By: #### L 500.4050, L501.3620, L100.0100 #### [facility] [address] [place], [address] MCHC (RBC) [Mass/Vol] 31.6 g/dL Low 32-36 [facility] Comment on above: Performed By: #### L 500.4050, L501.3620, L100.0100 #### [facility] [address] [place], [address] MCV (RBC) [Entitic vol] 103.0 fL High 80-94 [facility] Comment on above: Performed By: #### L 500.4050, L501.3620, L100.0100 #### [facility] [address] [place], [address] Monocytes/100 WBC (Bld) 14.5 % High 0-10 [facility] Comment on above: Performed By: #### L 500.4050, L501.3620, L100.0100 #### [facility] [address] [place], [address] Neutrophils/100 WBC (Bld) 63.9 % Normal 47-70 [facility] Comment on above: Performed By: #### L 500.4050, [id number], L100.0100 #### [facility] [address] [place], [address] Nucleated RBC (Bld) [#/Vol] 0 10*3/uL Normal 0-5 [facility] Comment on above: Performed By: #### L 500.4050, L501.3620, L100.0100 #### [facility] [address] [place], [address] Platelet mean volume (Bld) [Entitic vol] 10.3 fL Normal 6.2-12.0 [facility] Comment on above: Performed By: #### L 500.4050, L501.3620, L100.0100 #### [facility] [address] [place], [address] Platelets (Bld) [#/Vol] 138 10*3/uL Low 150-450 [facility] Comment on above: Performed By: #### L 500.4050, L501.3620, L100.0100 #### [facility] [address] [place], [address] RBC (Bld) [#/Vol] 4.70 10*6/uL Normal 4.6-6.[address] [facility] Comment on above: Performed By: #### L 500.4050, [id number], L100.0100 #### [facility] [address] [place], [address] RDW SD 49.1 fl High 35.1-43.9 [facility] Comment on above: Performed By: #### L 500.4050, [id number], L100.0100 #### [facility] [address] [place], [address] WBC (Bld) [#/Vol] 7.5 10*3/uL Normal 4.4-11.0 [facility] Comment on above: Performed By: #### L 500.4050, L501.3620, L100.0100 #### [facility] [address] [place], [address] Comprehensive Metabolic Prof ilon 06-28-2023 Albumin [Mass/Vol] 3.1 g/dL Low 3.2-5.0 [facility] Comment on above: Performed By: #### L 500.4050, L501.3620, L100.0100 #### [facility] [address] [place], [address] Albumin/Globulin [Mass ratio] 0.8 {ratio} Low 0.9-2.4 [facility] Comment on above: Performed By: #### L 500.4050, L501.3620, L100.0100 #### [facility] [address] [place], [address] ALK P 81 U/L Normal 45-117 [facility] Comment on above: Performed By: #### L 500.4050, [id number], L100.0100 #### [facility] [address] [place], [address] ALT [Catalytic activity/Vol] 40 U/L Normal 16-61 [facility] Comment on above: Performed By: #### L 500.4050, [id number], L100.0100 #### [facility] [address] [place], [address] AST [Catalytic activity/Vol] 23 U/L Normal 15-37 [facility] Comment on above: Performed By: #### L 500.4050, [id number], L100.0100 #### [facility] [address] [place], [address] Bilirubin [Mass/Vol] 0.60 mg/dL Normal 0.20-1.00 [facility] Comment on above: Result Comment: For patients on eltrombopag therapy, use of Dimension [place] TBIL is not recommended. Performed By: #### L 500.4050, L501.3620, L100.0100 #### [facility] [address] [place], [address] BUN/CRE 10.2 RATIO Normal 10-20 [facility] Comment on above: Performed By: #### L 500.4050, L501.3620, L100.0100 #### [facility] [address] [place], [address] CA,Total 8.9 mg/dL Normal 8.5-10.1 [facility] Comment on above: Performed By: #### L 500.4050, [id number], L100.0100 #### [facility] [address] [place], [address] Chloride [Moles/Vol] 100 mmol/L Normal 98-107 [facility] Comment on above: Performed By: #### L 500.4050, [id number], L100.0100 #### [facility] [address] [place], [address] CO2 [Moles/Vol] 33.0 mmol/L High 21.0-32.0 [facility] Comment on above: Performed By: #### L 500.4050, L501.3620, L100.0100 #### [facility] [address] [place], [address] Creatinine [Mass/Vol] 1.18 mg/dL Normal 0.70-1.30 [facility] Comment on above: Result Comment: The validity of the calculated GFR GFRAA in patients over 70 years has not been determined. Clinical correlation is essential. Performed By: #### L 500.4050, L501.3620, L100.0100 #### [facility] [address] [place], [address] ECRCL 62.64 ml/min Normal [facility] Comment on above: Performed By: #### L 500.4050, L501.3620, L100.0100 #### [facility] [address] [place], [address] EST GFR - AA 77 mL/min Normal >60 [facility] Comment on above: Result Comment: Afri can [place] GFR Calc Performed By: #### L 500.4050, L501.3620, L100.0100 #### [facility] [address] [place], [address] GAP 2 Low 5-15 [facility] Comment on above: Performed By: #### L 500.4050, L501.3620, L100.0100 #### [facility] [address] [place], [address] GFR/1.73 sq M.predicted among non-blacks MDRD (S/P/Bld) [Vol rate/Area] 64 mL/min/{1.73_m2} Normal >60 [facility] Comment on above: Result Comment: Non- GFR Calc Performed By: #### L 500.4050, L501.3620, L100.0100 #### [facility] [address] [place], [address] Globulin (S) [Mass/Vol] 3.8 g/dL Normal 2.2-4.2 [facility] Comment on above: Performed By: #### L 500.4050, L501.3620, L100.0100 #### [facility] [address] [place], [address] Glucose [Mass/Vol] 131 mg/dL High 74-106 [facility] Comment on above: Result Comment: Fast ing Glucose result greater than or equal to 126 mg/dL suggests DIABETES MELLITUS per A.D.A. criteria. Performed By: #### L 500.4050, L501.3620, L100.0100 #### [facility] [address] [place], [address] Potassium [Moles/Vol] 3.9 mmol/L Normal 3.5-5.1 [facility] Comment on above: Performed By: #### L 500.4050, L501.3620, L100.0100 #### [facility] [address] [place], [address] Sodium [Moles/Vol] 135 mmol/L Low 136-145 [facility] Comment on above: Performed By: #### L 500.4050, L501.3620, L100.0100 #### [facility] [address] [place], [address] T PROT 6.9 g/dL Normal 6.4-8.2 [facility] Comment on above: Performed By: #### L 500.4050, L501.3620, L100.0100 #### [facility] [address] [place], [address] Urea nitrogen [Mass/Vol] 12 mg/dL Normal 7-18 [facility] Comment on above: Performed By: #### L 500.4050, L501.3620, L100.0100 #### [facility] [address] [place], [address] CBC W/Diff, Automatedon 04- 0-2023 Absolute Lymph 0.86 X10 3/uL Normal 0.83-4.51 [facility] Comment on above: Performed By: #### L 500.2500, L100.0100, L300.3900 #### [facility] [address] [place], [address] Absolute Neut 4.1 X10 3/uL Normal 2.0-7.7 [facility] Comment on above: Performed By: #### L 500.2500, L100.0100, L300.3900 #### [facility] [address] [place], [address] Basophils/100 WBC (Bld) 0.9 % Normal 0-1 [facility] Comment on above: Performed By: #### L 500.2500, L100.0100, L300.3900 #### [facility] [address] [place], [address] Eosinophils/100 WBC (Bld) 3.3 % Normal 0-5 [facility] Comment on above: Performed By: #### L 500.2500, L100.0100, L300.3900 #### [facility] [address] [place], [address] Erythrocyte distribution width (RBC) [Ratio] 13.0 % Normal 11.6-14.6 [facility] Comment on above: Performed By: #### L 500.2500, L100.0100, L300.3900 #### [facility] [address] [place], [address] Hematocrit (Bld) [Volume fraction] 47.5 % Normal 40-54 [facility] Comment on above: Performed By: #### L 500.2500, L100.0100, L300.3900 #### [facility] [address] [place], [address] Hemoglobin (Bld) [Mass/Vol] 15.2 g/dL Normal 13.0-16.5 [facility] Comment on above: Performed By: #### L 500.2500, L100.0100, L300.3900 #### [facility] [address] [place], [address] IG% 3.600 High 0.0-0.9 [facility] Comment on above: Result Comment: IG% - Immature Granulocytes (promyelocytes, myelocytes and metamyelocytes) > 1% indicates that a LEFT SHIFT is Present. Performed By: #### L 500.2500, L100.0100, L300.3900 #### [facility] [address] [place], [address] Lymphocytes/100 WBC (Bld) 13.4 % Low 19-41 [facility] Comment on above: Performed By: #### L 500.2500, L100.0100, L300.3900 #### [facility] [address] [place], [address] MCH (RBC) [Entitic mass] 32.3 pg High 27.0-32.0 [facility] Comment on above: Performed By: #### L 500.2500, L100.0100, L300.3900 #### [facility] [address] [place], [address] MCHC (RBC) [Mass/Vol] 32.0 g/dL Normal 32-36 [facility] Comment on above: Performed By: #### L 500.2500, L100.0100, L300.3900 #### [facility] [address] [place], [address] MCV (RBC) [Entitic vol] 101.1 fL High 80-94 [facility] Comment on above: Performed By: #### L 500.2500, L100.0100, L300.3900 #### [facility] [address] [place], [address] Monocytes/100 WBC (Bld) 15.4 % High 0-10 [facility] Comment on above: Performed By: #### L 500.2500, L100.0100, L300.3900 #### [facility] [address] [place], [address] Neutrophils/100 WBC (Bld) 63.4 % Normal 47-70 [facility] Comment on above: Performed By: #### L 500.2500, L100.0100, L300.3900 #### [facility] [address] [place], [address] Nucleated RBC (Bld) [#/Vol] 0 10*3/uL Normal 0-5 [facility] Comment on above: Performed By: #### L 500.2500, L100.0100, L300.3900 #### [facility] [address] [place], [address] Platelet mean volume (Bld) [Entitic vol] 10.1 fL Normal 6.2-12.0 [facility] Comment on above: Performed By: #### L 500.2500, L100.0100, L300.3900 #### [facility] [address] [place], [address] Platelets (Bld) [#/Vol] 151 10*3/uL Normal 150-450 [facility] Comment on above: Performed By: #### L 500.2500, L100.0100, L300.3900 #### [facility] [address] [place], [address] RBC (Bld) [#/Vol] 4.70 10*6/uL Normal 4.6-6.[address] [facility] Comment on above: Performed By: #### L 500.2500, L100.0100, L300.3900 #### [facility] [address] [place], [address] RDW SD 48.3 fl High 35.1-43.9 [facility] Comment on above: Performed By: #### L 500.2500, L100.0100, L300.3900 #### [facility] [address] [place], [address] WBC (Bld) [#/Vol] 6.4 10*3/uL Normal 4.4-11.0 [facility] Comment on above: Performed By: #### L 500.2500, L100.0100, L300.3900 #### [facility] [address] [place], [address] Comprehensive Metabolic Prof ilon 06-27-2023 Albumin [Mass/Vol] 3.2 g/dL Normal 3.2-5.0 [facility] Comment on above: Performed By: #### L 500.2500, L100.0100, L300.3900 #### [facility] [address] [place], [address] Albumin/Globulin [Mass ratio] 1.0 {ratio} Normal 0.9-2.4 [facility] Comment on above: Performed By: #### L 500.2500, L100.0100, L300.3900 #### [facility] [address] [place], [address] ALK P 78 U/L Normal 45-117 [facility] Comment on above: Performed By: #### L 500.2500, L100.0100, L300.3900 #### [facility] [address] [place], [address] ALT [Catalytic activity/Vol] 44 U/L Normal 16-61 [facility] Comment on above: Performed By: #### L 500.2500, L100.0100, L300.3900 #### [facility] [address] [place], [address] AST [Catalytic activity/Vol] 38 U/L High 15-37 [facility] Comment on above: Performed By: #### L 500.2500, L100.0100, L300.3900 #### [facility] [address] [place], [address] Bilirubin [Mass/Vol] 0.60 mg/dL Normal 0.20-1.00 [facility] Comment on above: Result Comment: For patients on eltrombopag therapy, use of Dimension [place] TBIL is not recommended. Performed By: #### L 500.2500, L100.0100, L300.3900 #### [facility] [address] [place], [address] BUN/CRE 10.5 RATIO Normal 10-20 [facility] Comment on above: Performed By: #### L 500.2500, L100.0100, L300.3900 #### [facility] [address] [place], [address] CA,Total 8.5 mg/dL Normal 8.5-10.1 [facility] Comment on above: Performed By: #### L 500.2500, L100.0100, L300.3900 #### [facility] [address] [place], [address] Chloride [Moles/Vol] 103 mmol/L Normal 98-107 [facility] Comment on above: Performed By: #### L 500.2500, L100.0100, L300.3900 #### [facility] [address] [place], [address] CO2 [Moles/Vol] 32.0 mmol/L Normal 21.0-32.0 [facility] Comment on above: Performed By: #### L 500.2500, L100.0100, L300.3900 #### [facility] [address] [place], [address] Creatinine [Mass/Vol] 1.14 mg/dL Normal 0.70-1.30 [facility] Comment on above: Result Comment: The validity of the calculated GFR GFRAA in patients over 70 years has not been determined. Clinical correlation is essential. Performed By: #### L 500.2500, L100.0100, L300.3900 #### [facility] [address] [place], [address] ECRCL 64.84 ml/min Normal [facility] Comment on above: Performed By: #### L 500.2500, L100.0100, L300.3900 #### [facility] [facility] [address] [place], [address] EST GFR - AA 81 mL/min Normal >60 [facility] Comment on above: Result Comment: Afri can [place] GFR Calc Performed By: #### L 500.2500, L100.0100, L300.3900 #### [facility] [address] [place], [address] GAP 2 Low 5-15 [facility] Comment on above: Performed By: #### L 500.2500, L100.0100, L300.3900 #### [facility] [address] [place], [address] GFR/1.73 sq M.predicted among non-blacks MDRD (S/P/Bld) [Vol rate/Area] 67 mL/min/{1.73_m2} Normal >60 [facility] Comment on above: Result Comment: Non- GFR Calc Performed By: #### L 500.2500, L100.0100, L300.3900 #### [facility] [address] [place], [address] Globulin (S) [Mass/Vol] 3.3 g/dL Normal 2.2-4.2 [facility] Comment on above: Performed By: #### L 500.2500, L100.0100, L300.3900 #### [facility] [address] [place], [address] Glucose [Mass/Vol] 113 mg/dL High 74-106 [facility] Comment on above: Result Comment: Fast ing Glucose result from 100 to 125 mg/dL suggests IMPAIRED HOMEOSTASIS per A.D.A. criteria. Performed By: #### L 500.2500, L100.0100, L300.3900 #### [facility] [address] [place], [address] Potassium [Moles/Vol] 4.1 mmol/L Normal 3.5-5.1 [facility] Comment on above: Performed By: #### L 500.2500, L100.0100, L300.3900 #### [facility] [address] [place], [address] Sodium [Moles/Vol] 137 mmol/L Normal 136-145 [facility] Comment on above: Performed By: #### L 500.2500, L100.0100, L300.3900 #### [facility] [address] [place], [address] T PROT 6.5 g/dL Normal 6.4-8.2 [facility] Comment on above: Performed By: #### L 500.2500, L100.0100, L300.3900 #### [facility] [address] [place], [address] Urea nitrogen [Mass/Vol] 12 mg/dL Normal 7-18 [facility] Comment on above: Performed By: #### L 500.2500, L100.0100, L300.3900 #### [facility] [address] [place], [address] Basic Metabolic Profile (BMP )on 06-26-2023 BUN/CRE 12.3 RATIO Normal 10-20 [facility] Comment on above: Performed By: #### L 500.2500, L100.0100, L300.3900 #### [facility] [address] [place], [address] CA,Total 9.2 mg/dL Normal 8.5-10.1 [facility] Comment on above: Performed By: #### L 500.2500, L100.0100, L300.3900 #### [facility] [address] [place], [address] Chloride [Moles/Vol] 102 mmol/L Normal 98-107 [facility] Comment on above: Performed By: #### L 500.2500, L100.0100, L300.3900 #### [facility] [address] [place], [address] CO2 [Moles/Vol] 33.0 mmol/L High 21.0-32.0 [facility] Comment on above: Performed By: #### L 500.2500, L100.0100, L300.3900 #### [facility] [address] [place], [address] Creatinine [Mass/Vol] 1.30 mg/dL Normal 0.70-1.30 [facility] Comment on above: Result Comment: The validity of the calculated GFR GFRAA in patients over 70 years has not been determined. Clinical correlation is essential. Performed By: #### L 500.2500, L100.0100, L300.3900 #### [facility] [address] [place], [address] ECRCL 56.86 ml/min Normal [facility] Comment on above: Performed By: #### L 500.2500, L100.0100, L300.3900 #### [facility] [address] [place], [address] EST GFR - AA 69 mL/min Normal >60 [facility] Comment on above: Result Comment: Afri can [place] GFR Calc Performed By: #### L 500.2500, L100.0100, L300.3900 #### [facility] [address] [place], [address] GAP 4 Low 5-15 [facility] Comment on above: Performed By: #### L 500.2500, L100.0100, L300.3900 #### [facility] [address] [place], [address] GFR/1.73 sq M.predicted among non-blacks MDRD (S/P/Bld) [Vol rate/Area] 57 mL/min/{1.73_m2} Low >60 [facility] Comment on above: Result Comment: Non- GFR Calc Performed By: #### L 500.2500, L100.0100, L300.3900 #### [facility] [address] [place], [address] Glucose [Mass/Vol] 90 mg/dL Normal 74-106 [facility] Comment on above: Performed By: #### L 500.2500, L100.0100, L300.3900 #### [facility] [address] [place], [address] Potassium [Moles/Vol] 4.2 mmol/L Normal 3.5-5.1 [facility] Comment on above: Performed By: #### L 500.2500, L100.0100, L300.3900 #### [facility] [address] [place], [address] Sodium [Moles/Vol] 139 mmol/L Normal 136-145 [facility] Comment on above: Performed By: #### L 500.2500, L100.0100, L300.3900 #### [facility] [address] [place], [address] Urea nitrogen [Mass/Vol] 16 mg/dL Normal 7-18 [facility] Comment on above: Performed By: #### L 500.2500, L100.0100, L300.3900 #### [facility] [address] [place], [address] BUN/CRE 16.8 RATIO Normal 10-20 [facility] Comment on above: Performed By: #### L 500.2500, L100.0100, L501.3620 #### [facility] [address] [place], [address] CA,Total 8.9 mg/dL Normal 8.5-10.1 [facility] Comment on above: Performed By: #### L 500.2500, L100.0100, L501.3620 #### [facility] [address] [place], [address] Chloride [Moles/Vol] 104 mmol/L Normal 98-107 [facility] Comment on above: Performed By: #### L 500.2500, L100.0100, L501.3620 #### [facility] [address] [place], [address] CO2 [Moles/Vol] 29.0 mmol/L Normal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 16.8 mg/mg 10-20 [facility] Laboratory - Hematology and Cell countsOrdered By: Fabiola Friend on 06-25-2023 MCH (RBC) [Entitic mass] 32.5 pg 27.0-32.0 [facility] MCHC (RBC) [Mass/Vol] 32.0 g/dL 32-36 [facility] Nucleated RBC/100 WBC (Bld) [Ratio] 0 % 0-5 [facility] Platelet mean volume (Bld) [Entitic vol] 10.6 fL 6.2-12.0 [facility] Platelets (Bld) [#/Vol] 157 10*3/uL 150-450 [facility] No Panel InformationOrdered By: Fabiola Friend on 06-25-2023 Estimated GFR (MDRD) Amer 77 mL/min >60 [facility] Comment on above: GFR Calc Estimated GFR (MDRD) Non-Af Amer 63 mL/min >60 [facility] Comment on above: Non- GFR Calc RBC Auto (Bld) [#/Vol]Ordere d By: Fabiola Friend on 06-25-2023 RBC (Bld) [#/Vol] 4.95 10*6/uL 4.6-6.[address] [facility] Serum or plasma calcium libra urement (mass/volume)Ordered By: Fabiola Friend on 06-25-2023 Calcium [Mass/Vol] 8.9 mg/dL 8.5-10.1 [facility] Serum or plasma creatinine m easurement (mass/volume)Ordered By: Fabiola Friend on 06-25-2023 Creatinine [Mass/Vol] 1.19 mg/dL 0.70-1.30 [facility] Comment on above: The validity of the calculated GFR & GFRAA in patients over 70 years has not been determined. Clinical correlation is essential. Serum or plasma urea nitroge n measurement (mass/volume)Ordered By: Fabiola Friend on 06-25-2023 Urea nitrogen [Mass/Vol] 20 mg/dL - [facility] Thin prep Papanicolaou smear with manual screeningOrdered By: Fabiola Friend on 06-25-2023 Thin prep Papanicolaou smear with manual screening 5 5-15 [facility] Absolute lymphocyte countOrd ered By: Irlanda Ruiz on 06-23-2023 Lymphocytes Auto (Unsp spec) [#/Vol] 1.07 10*3/uL 0.83-4.51 [facility] Automated lymphocyte count a s percentage of total leukocytesOrdered By: Irlanda White on 06-23-2023 Lymphocytes/100 WBC Auto (Unsp spec) 10.0 % 19-41 [facility] Basophil percentageOrdered B y: White on 06-23-2023 Basophils/100 WBC (Bld) 0.7 % 0-1 [facility] Bilirubin [Mass/Vol] 0.50 mg/dL 0.20-1.00 [facility] Comment on above: For patients on eltr ombopag therapy, use of Dimension [place] TBIL is not recommended. Chloride [Moles/Vol] 107 mmol/L 98-107 [facility] Eosinophils/100 WBC (Bld) 1.7 % 0-5 [facility] Glucose [Mass/Vol] 91 mg/dL 74-106 [facility] Hemoglobin (Bld) [Mass/Vol] 16.5 g/dL 13.0-16.5 [facility] Monocytes/100 WBC (Bld) 10.1 % 0-10 [facility] Neutrophils (Bld) [#/Vol] 8.2 10*3/uL 2.0-7.7 [facility] Neutrophils/100 WBC (Bld) 76.4 % 47-70 [facility] Potassium [Moles/Vol] 3.8 mmol/L 3.5-5.1 [facility] Protein [Mass/Vol] 5.9 g/dL 6.4-8.2 [facility] Sodium [Moles/Vol] 138 mmol/L 136-145 [facility] WBC (Bld) [#/Vol] 10.7 10*3/uL 4.4-11.[address] [facility] CBC W/Diff, Automatedon 06-07 PATH REV Reviewed Normal [facility] Comment on above: Result Comment: Neut rophilic leukocytosis. Polycythemia Macrocytosis. Clinical correlation necessary. Devin Nation M.D. 06/23/23 AMENDED REPORT 06/23/23 1129 PATH REV previously reported as: July enedina Performed By: #### L 500.2500, L100.0100, L300.3900 #### [facility] [address] [place], [address] Absolute Lymph 1.07 X10 3/uL Normal 0.83-4.51 [facility] Comment on above: Performed By: #### L 500.4050, L501.3620, L100.0100 #### [facility] [address] [place], [address] Absolute Neut 8.2 X10 3/uL High 2.0-7.7 [facility] Comment on above: Performed By: #### L 500.4050, L501.3620, L100.0100 #### [facility] [address] [place], [address] Basophils/100 WBC (Bld) 0.7 % Normal 0-1 [facility] Comment on above: Performed By: #### L 500.4050, L501.3620, L100.0100 #### [facility] [address] [place], [address] Eosinophils/100 WBC (Bld) 1.7 % Normal 0-5 [facility] Comment on above: Performed By: #### L 500.4050, L501.3620, L100.0100 #### [facility] [address] [place], [address] Erythrocyte distribution width (RBC) [Ratio] 13.1 % Normal 11.6-14.6 [facility] Comment on above: Performed By: #### L 500.4050, L501.3620, L100.0100 #### [facility] [address] [place], [address] Hematocrit (Bld) [Volume fraction] 49.6 % Normal 40-54 [facility] Comment on above: Performed By: #### L 500.4050, L501.3620, L100.0100 #### [facility] [address] [place], [address] Hemoglobin (Bld) [Mass/Vol] 16.5 g/dL Normal 13.0-16.5 [facility] Comment on above: Performed By: #### L 500.4050, L501.3620, L100.0100 #### [facility] [address] [place], [address] IG% 1.100 High 0.0-0.9 [facility] Comment on above: Result Comment: IG% - Immature Granulocytes (promyelocytes, myelocytes and metamyelocytes) > 1% indicates that a LEFT SHIFT is Present. Performed By: #### L 500.4050, L501.3620, L100.0100 #### [facility] [address] [place], [address] Lymphocytes/100 WBC (Bld) 10.0 % Low 19-41 [facility] Comment on above: Performed By: #### L 500.4050, L501.3620, L100.0100 #### [facility] [address] [place], [address] MCH (RBC) [Entitic mass] 33.4 pg High 27.0-32.0 [facility] Comment on above: Performed By: #### L 500.4050, L501.3620, L100.0100 #### [facility] [address] [place], [address] MCHC (RBC) [Mass/Vol] 33.3 g/dL Normal 32-36 [facility] Comment on above: Performed By: #### L 500.4050, L501.3620, L100.0100 #### [facility] [address] [place], [address] MCV (RBC) [Entitic vol] 100.4 fL High 80-94 [facility] Comment on above: Performed By: #### L 500.4050, L501.3620, L100.0100 #### [facility] [address] [place], [address] Monocytes/100 WBC (Bld) 10.1 % High 0-10 [facility] Comment on above: Performed By: #### L 500.4050, L501.3620, L100.0100 #### [facility] [address] [place], [address] Neutrophils/100 WBC (Bld) 76.4 % High 47-70 [facility] Comment on above: Performed By: #### L 500.4050, L501.3620, L100.0100 #### [facility] [address] [place], [address] Nucleated RBC (Bld) [#/Vol] 0 10*3/uL Normal 0-5 [facility] Comment on above: Performed By: #### L 500.4050, L501.3620, L100.0100 #### [facility] [address] [place], [address] Platelet mean volume (Bld) [Entitic vol] 10.9 fL Normal 6.2-12.0 [facility] Comment on above: Performed By: #### L 500.4050, L501.3620, L100.0100 #### [facility] [address] [place], [address] Platelets (Bld) [#/Vol] 144 10*3/uL Low 150-450 [facility] Comment on above: Performed By: #### L 500.4050, L501.3620, L100.0100 #### [facility] [address] [place], [address] RBC (Bld) [#/Vol] 4.94 10*6/uL Normal 4.6-6.[address] [facility] Comment on above: Performed By: #### L 500.4050, L501.3620, L100.0100 #### [facility] [address] [place], [address] RDW SD 48.0 fl High 35.1-43.9 [facility] Comment on above: Performed By: #### L 500.4050, L501.3620, L100.0100 #### [facility] [address] [place], [address] WBC (Bld) [#/Vol] 10.7 10*3/uL Normal 4.4-11.[address] [facility] Comment on above: Performed By: #### L 500.4050, L501.3620, L100.0100 #### [facility] [address] [place], [address] CPK Total, Creatine Kinaseon 06-23-2023 CPK TOTAL 350 U/L High 39-308 [facility] Comment on above: Performed By: #### L 500.4050, L501.3620, L100.0100 #### [facility] [address] [place], [address] Comprehensive Metabolic Prof ilon 06-23-2023 Albumin [Mass/Vol] 3.0 g/dL Low 3.2-5.0 [facility] Comment on above: Performed By: #### L 500.4050, L501.3620, L100.0100 #### [facility] [address] [place], [address] Albumin/Globulin [Mass ratio] 1.0 {ratio} Normal 0.9-2.4 [facility] Comment on above: Performed By: #### L 500.4050, L501.3620, L100.0100 #### [facility] [address] [place], [address] ALK P 71 U/L Normal 45-117 [facility] Comment on above: Performed By: #### L 500.4050, L501.3620, L100.0100 #### [facility] [address] [place], [address] ALT [Catalytic activity/Vol] 25 U/L Normal 16-61 [facility] Comment on above: Performed By: #### L 500.4050, L501.3620, L100.0100 #### [facility] [address] [place], [address] AST [Catalytic activity/Vol] 23 U/L Normal 15-37 [facility] Comment on above: Performed By: #### L 500.4050, L501.3620, L100.0100 #### [facility] [address] [place], [address] Bilirubin [Mass/Vol] 0.50 mg/dL Normal 0.20-1.00 [facility] Comment on above: Result Comment: For patients on eltrombopag therapy, use of Dimension [place] TBIL is not recommended. Performed By: #### L 500.4050, L501.3620, L100.0100 #### [facility] [address] [place], [address] BUN/CRE 17.1 RATIO Normal 10-20 [facility] Comment on above: Performed By: #### L 500.4050, L501.3620, L100.0100 #### [facility] [address] [place], [address] CA,Total 7.2 mg/dL Low 8.5-10.1 [facility] Comment on above: Performed By: #### L 500.4050, L501.3620, L100.0100 #### [facility] [address] [place], [address] Chloride [Moles/Vol] 107 mmol/L Normal 98-107 [facility] Comment on above: Performed By: #### L 500.4050, L501.3620, L100.0100 #### [facility] [address] [place], [address] CO2 [Moles/Vol] 28.0 mmol/L Normal 21.0-32.0 [facility] Comment on above: Performed By: #### L 500.4050, L501.3620, L100.0100 #### [facility] [address] [place], [address] Creatinine [Mass/Vol] 1.23 mg/dL Normal 0.70-1.30 [facility] Comment on above: Result Comment: The validity of the calculated GFR GFRAA in patients over 70 years has not been determined. Clinical correlation is essential. Performed By: #### L 500.4050, L501.3620, L100.0100 #### [facility] [address] [place], [address] ECRCL 58.92 ml/min Normal [facility] Comment on above: Performed By: #### L 500.4050, L501.3620, L100.0100 #### [facility] [address] [place], [address] EST GFR - AA 74 mL/min Normal >60 [facility] Comment on above: Result Comment: Afri can [place] GFR Calc Performed By: #### L 500.4050, L501.3620, L100.0100 #### [facility] [address] [place], [address] GAP 3 Low 5-15 [facility] Comment on above: Performed By: #### L 500.4050, L501.3620, L100.0100 #### [facility] [address] [place], [address] GFR/1.73 sq M.predicted among non-blacks MDRD (S/P/Bld) [Vol rate/Area] 61 mL/min/{1.73_m2} Normal >60 [facility] Comment on above: Result Comment: Non- GFR Calc Performed By: #### L 500.4050, L501.3620, L100.0100 #### [facility] [address] [place], [address] Globulin (S) [Mass/Vol] 2.9 g/dL Normal 2.2-4.2 [facility] Comment on above: Performed By: #### L 500.4050, L501.3620, L100.0100 #### [facility] [address] [place], [address] Glucose [Mass/Vol] 91 mg/dL Normal 74-106 [facility] Comment on above: Performed By: #### L 500.4050, L501.3620, L100.0100 #### [facility] [address] [place], [address] Potassium [Moles/Vol] 3.8 mmol/L Normal 3.5-5.1 [facility] Comment on above: Performed By: #### L 500.4050, L501.3620, L100.0100 #### [facility] [address] [place], [address] Sodium [Moles/Vol] 138 mmol/L Normal 136-145 [facility] Comment on above: Performed By: #### L 500.4050, L501.3620, L100.0100 #### [facility] [address] [place], [address] T PROT 5.9 g/dL Low 6.4-8.2 [facility] Comment on above: Performed By: #### L 500.4050, L501.3620, L100.0100 #### [facility] [address] [place], [address] Urea nitrogen [Mass/Vol] 21 mg/dL High 7-18 [facility] Comment on above: Performed By: #### L 500.4050, L501.3620, L100.0100 #### [facility] [address] [place], [address] Determination of erythrocyte mean corpuscular volume (MCV)Ordered By: [facility] on 06-23-2023 MCV (RBC) [Entitic vol] 100.4 fL 80-94 [facility] Erythrocyte distribution wid th ratioOrdered By: [facility] on 06-23-2023 Erythrocyte distribution width (RBC) [Ratio] 13.1 % 11.6-14.6 [facility] Erythrocyte distribution wid th standard deviationOrdered By: [facility] on 06-23-2023 Erythrocyte distribution width (RBC) [Entitic vol] 48.0 fL 35.1-43.9 [facility] Hematocrit Auto (Bld) [Volum e fraction]Ordered By: [facility] on 06-23-2023 Hematocrit (Bld) [Volume fraction] 49.6 % 40-54 [facility] Immature granulocytes/100 WB C Auto (Bld)Ordered By: [facility] on 06-23-2023 Immature granulocytes/100 WBC (Bld) 1.100 % 0.0-0.9 [facility] Comment on above: IG% - Immature Granu locytes (promyelocytes, myelocytes and metamyelocytes) > 1% indicates that a LEFT SHIFT is Present. Laboratory - Chemistry and C hemistry - challengeOrdered By: [facility] on 06-23-2023 Albumin/Globulin [Mass ratio] 1.0 {ratio} 0.9-2.4 [facility] ALP [Catalytic activity/Vol] 71 U/L 45-117 [facility] ALT [Catalytic activity/Vol] 25 U/L 16-61 [facility] CK [Catalytic activity/Vol] 350 U/L 39-308 [facility] CO2 [Moles/Vol] 28.0 mmol/L 21.0-32.0 [facility] Globulin (S) [Mass/Vol] 2.9 g/dL 2.2-4.2 [facility] Urea nitrogen/Creatinine [Mass ratio] 17.1 mg/mg 10-20 [facility] - Hematology and Cell countsOrdered By: Irlanda Ruiz on 06-23-2023 MCH (RBC) [Entitic mass] 33.4 pg 27.0-32.0 [facility] MCHC (RBC) [Mass/Vol] 33.3 g/dL 32-36 [facility] Nucleated RBC/100 WBC (Bld) [Ratio] 0 % 0-5 [facility] Platelet mean volume (Bld) [Entitic vol] 10.9 fL 6.2-12.0 [facility] Platelets (Bld) [#/Vol] 144 10*3/uL 150-450 [facility] No Panel InformationOrdered By: Irlanda Ruiz on 06-23-2023 Estimated Creatinine Clearance Calc 58.92 ml/min [facility] Estimated GFR (MDRD) Amer 74 mL/min >60 [facility] Comment on above: GFR Calc Estimated GFR (MDRD) Non-Af Amer 61 mL/min >60 [facility] Comment on above: Non- GFR Calc RBC Auto (Bld) [#/Vol]Ordere d By: Irlanda Ruiz on 06-23-2023 RBC (Bld) [#/Vol] 4.94 10*6/uL 4.6-6.[address] [facility] Serum or plasma calcium libra urement (mass/volume)Ordered By: Irlanda Ruiz on 06-23-2023 Calcium [Mass/Vol] 7.2 mg/dL 8.5-10.1 [facility] Serum or plasma creatinine m easurement (mass/volume)Ordered By: Irlanda Ruiz on 06-23-2023 Creatinine [Mass/Vol] 1.23 mg/dL 0.70-1.30 [facility] Comment on above: The validity of the calculated GFR & GFRAA in patients over 70 years has not been determined. Clinical correlation is essential. Serum or plasma urea nitroge n measurement (mass/volume)Ordered By: Irlanda Ruiz on 06-23-2023 Urea nitrogen [Mass/Vol] 21 mg/dL 7-18 [facility] Thin prep Papanicolaou smear with manual screeningOrdered By: Irlanda Ruiz on 06-23-2023 Thin prep Papanicolaou smear with manual screening 3.0 g/dL 3.2-5.0 [facility] Thin prep Papanicolaou smear with manual screening 23 U/L 15-37 [facility] Thin prep Papanicolaou smear with manual screening 3 5-15 [facility] 12 Lead EKGon 06-22-2023 12 Lead EKG [facility] [address] [place] [address] 12 Lead EKG 06/22/23 1429 MR#: [id number] Acct: [id number] Name: BEAR SHINE Rep #: [id number] : 1950 73 From: Jared Ngo MD Attending Dr: Dr. John Lemus DO Status: ADM IN Ordering Dr: Spencer Rangel DO Date: 06/22/23 Location: [facility] Sex: M C Admitted: 06/22/23 Test Reason : SEIZURE Blood Pressure : / mmHG Vent. Rate : 064 BPM Atrial Rate : 064 BPM P-R Int : 190 ms QRS Dur : 086 ms QT Int : 402 ms P-R-T Axes : 061 -20 007 degrees QTc Int : 414 ms Normal sinus rhythm Normal ECG Confirmed by HZAO XAVIER, JARED ([id number]), newspaper copy editor NAVEEN PATEL ([id number]) on 06/23/2023 8:27:38 AM Referred By: Confirmed By:JARED NGO MD 06/23/23 0827 Date Jared Ngo MD CC: Dr. Spencer Rangel DO; Dr. John Lemus DO; Dr. Kerry Burger DO Signed Normal [facility] Absolute lymphocyte countOrd ered By: Spencer Rangel on 06-22-2023 Lymphocytes Auto (Unsp spec) [#/Vol] 0.89 10*3/uL 0.83-4.51 [facility] Alcohol, Blood (Medical)-Ser umon 06-22-2023 SERUM ETOH < 3.0 Normal [facility] Comment on above: Result Comment: The serum:whole blood ethanol ratio is approximately 1.14 and varies slightly with hematocrit. Medical Alcohol reference interval and critical value in non-tolerant individuals; 50 - 100 Impairment 100 Intoxication 100 - 250 Severe Poisoning 250 - 400 Deep/possible fatal coma Performed By: #### L 500.4050, L501.3620, L100.0100 #### [facility] [address] [place], [address] Automated lymphocyte count a s percentage of total leukocytesOrdered By: Spencer Rangel on 06-22-2023 Lymphocytes/100 WBC Auto (Unsp spec) 5.5 % 19-41 [facility] Basic Metabolic Profile (BMP )on 06-22-2023 BUN/CRE 13.1 RATIO Normal 10-20 [facility] Comment on above: Performed By: #### L 500.2500, L100.0100, L300.3900 #### [facility] [address] [place], [address] CA,Total 8.9 mg/dL Normal 8.5-10.1 [facility] Comment on above: Performed By: #### L 500.2500, L100.0100, L300.3900 #### [facility] [address] [place], [address] Chloride [Moles/Vol] 102 mmol/L Normal 98-107 [facility] Comment on above: Performed By: #### L 500.2500, L100.0100, L300.3900 #### [facility] [address] [place], [address] CO2 [Moles/Vol] 30.0 mmol/L Normal 21.0-32.0 [facility] Comment on above: Performed By: #### L 500.2500, L100.0100, L300.3900 #### [facility] [address] [place], [address] Creatinine [Mass/Vol] 1.53 mg/dL High 0.70-1.30 [facility] Comment on above: Result Comment: The validity of the calculated GFR GFRAA in patients over 70 years has not been determined. Clinical correlation is essential. Performed By: #### L 500.2500, L100.0100, L300.3900 #### [facility] [address] [place], [address] ECRCL 47.32 ml/min Normal [facility] Comment on above: Performed By: #### L 500.2500, L100.0100, L300.3900 #### [facility] [address] [place], [address] EST GFR - AA 57 mL/min Low >60 [facility] Comment on above: Result Comment: Afri can [place] GFR Calc Performed By: #### L 500.2500, L100.0100, L300.3900 #### [facility] [address] [place], [address] GAP 7 Normal 5-15 [facility] Comment on above: Performed By: #### L 500.2500, L100.0100, L300.3900 #### [facility] [address] [place], [address] GFR/1.73 sq M.predicted among non-blacks MDRD (S/P/Bld) [Vol rate/Area] 47 mL/min/{1.73_m2} Low >60 [facility] Comment on above: Result Comment: Non- GFR Calc Performed By: #### L 500.2500, L100.0100, L300.3900 #### [facility] [address] [place], [address] Glucose [Mass/Vol] 91 mg/dL Normal 74-106 [facility] Comment on above: Performed By: #### L 500.2500, L100.0100, L300.3900 #### [facility] [address] [place], [address] Potassium [Moles/Vol] 4.8 mmol/L Normal 3.5-5.1 [facility] Comment on above: Performed By: #### L 500.2500, L100.0100, L300.3900 #### [facility] [address] [place], [address] Sodium [Moles/Vol] 139 mmol/L Normal 136-145 [facility] Comment on above: Performed By: #### L 500.2500, L100.0100, L300.3900 #### [facility] [address] [place], [address] Urea nitrogen [Mass/Vol] 20 mg/dL High 7-18 [facility] Comment on above: Performed By: #### L 500.2500, L100.0100, L300.3900 #### [facility] [address] [place], [address] Basophil percentageOrdered B y: Irlanda White on 06-22-2023 Basophil percentage 2.7 mg/dL 2.5-4.[address] [facility] Basophil percentage 30.7 ug/mL 10.0-40.[address] [facility] Basophil percentageOrdered B y: Spencer Rangel on 06-22-2023 Basophil percentage 0 SEEN /hpf 0-5 [facility] Basophils/100 WBC (Bld) 0.9 % 0-1 [facility] Chloride [Moles/Vol] 102 mmol/L 98-107 [facility] Eosinophils/100 WBC (Bld) 0.9 % 0-5 [facility] Glucose [Mass/Vol] 91 mg/dL 74-106 [facility] Hemoglobin (Bld) [Mass/Vol] 18.5 g/dL 13.0-16.5 [facility] Comment on above: CRITICAL VALUE VERIF IED. CALLED TO SEAN LOERA RN ER06/22/23 1514 Keith Mauricio.RESULTS READ BACK BY SAME . Previous reported result: 18.5 g/dLEdited by: CASEY on 06/22/23:1515 Monocytes/100 WBC (Bld) 10.9 % 0-10 [facility] Neutrophils (Bld) [#/Vol] 13.2 10*3/uL 2.0-7.7 [facility] Neutrophils/100 WBC (Bld) 80.6 % 47-70 [facility] Potassium [Moles/Vol] 4.8 mmol/L 3.5-5.1 [facility] Sodium [Moles/Vol] 139 mmol/L 136-145 [facility] WBC (Bld) [#/Vol] 16.3 10*3/uL 4.4-11.[address] [facility] Bilirubin Test strip Ql (U)O rdered By: Spencer Rangel on 06-22-2023 Bilirubin Ql (U) Negative Negative [facility] Blood manual differential co mment interpretation (narrative result)Ordered By: Spencer Rangel on 06-22-2023 Manual differential comment Robert (Bld) [Interp] SEE COMMENT [facility] Comment on above: MONOCYTOSIS NOTED Blood platelet adequacy dete ction by light microscopyOrdered By: Spencer Rangel on 06-22-2023 Platelets LM Ql (Bld) ADEQUATE ADEQ [facility] Brain/Head without Contrasto n 06-22-2023 Brain/Head without Contrast [facility] [address] [place] [address] Brain/Head without Contrast MR#: [id number] Acct: [id number] Name: BEAR SHINE Rep #: [id number] : 1950 M 73 From: Sanya pickard MD PCP: Dr. Kerry Burger DO Status: PRE ER Study: Brain/Head without Contrast Date of Exam: 06/07 07/30 Exam# [id number] Ordering Dr: Spencer Rangel DO [id number] STUDY: CT BRAIN WITHOUT CONTRAST REASON FOR EXAM: Male, 73 years old. Head injury. RADIATION DOSAGE (If Supplied By Facility): CTDIvol = ( 44.99 ) mGy, DLP = ( 846.73 ) mGycm TECHNIQUE: Transaxial CT imaging of the brain was performed without administration of intravenous contrast material. Individualized dose optimization techniques were used for this CT. COMPARISON: Comparison is made with prior examination dated May 04, 2023. FINDINGS: Normal soft tissue structures. Normal calvarium. There is mild cerebral atrophy with widening of the extra-axial spaces and ventricular dilatation. Normal white matter tracts of the cerebral hemispheres. Normal basal ganglia and thalami. Normal brainstem. Normal cerebellum. There is no intracranial hemorrhage. There are no findings of an acute ischemic infarction. Atherosclerotic calcification of the cavernous portions of the internal carotid arteries bilaterally. Normal visualized paranasal sinuses. CT/Brain/Head without Contrast IMPRESSION: Chronic involutional changes of the brain. Electronically Signed: Sanya Jacome MD at 15:18 EDT Reading Location ID and State: [address] [place] [address] , Service support , CC: Dr. Spencer Rangel DO; Dr. Kerry Burger DO Insight Director: Signed Normal [facility] CPK Total, Creatine Kinaseon 06-22-2023 CPK TOTAL 832 U/L High 39-308 [facility] Comment on above: Order Comment: 'TROP ' Serial specimen #1, #2 or #3: 1 Performed By: #### L 500.2500, L100.0100, L300.3900 #### [facility] [address] [place], [place], [address] CT Chest, Abd, Pelvis WO Con ton 06-22-2023 CT Chest, Abd, Pelvis WO Cont [facility] [address] [place] [address] CT Chest, Abd, Pelvis WO Cont MR#: [id number] Acct: [id number] Name: BEAR SHINE Rep #: [id number] : 1950 M 73 From: Sanya pickard MD PCP: Dr. Kerry Burger, Status: REG ER Study: CT Chest, Abd, Pelvis WO Cont Date of Exam: Exam# [id number] Ordering Dr: Spencer Rangel DO [id number] STUDY: CT CHEST, ABDOMEN T PELVIS WITHOUT CONTRAST REASON FOR EXAM: Male, 73 years old. Trauma. RADIATION DOSAGE (If Supplied By Facility): CTDIvol = ( 25.78 ) mGy, DLP = ( 2374.15 ) mGycm TECHNIQUE: Transaxial imaging was performed without the administration of intravenous contrast material. Multiplanar coronal and sagittal images were reformatted. Individualized dose optimization techniques were used for this CT. COMPARISON: Comparison is made with prior study dated May 04, 2023. FINDINGS: CHEST The lungs are normal. There is no demonstrated pleural abnormality. There are calcifications of the coronary arteries. Normal mediastinum. Normal hilar regions. Normal unenhanced pulmonary arteries. There is atherosclerotic calcification of the aortic arch. There are multi-level degenerative changes of the thoracic spine. There is no demonstrated abnormality of the visualized upper abdomen. ABDOMEN Normal liver. The patient is status post cholecystectomy. Normal spleen. Normal pancreas. Normal bilateral adrenal glands. Normal right kidney. Normal left kidney. Normal visualized stomach. Normal small intestine. Normal colon. The appendix is visualized and appears normal. There is diffuse atherosclerotic calcification of the abdominal aorta, without a demonstrated aneurysm. Normal inferior vena cava. Normal retroperitoneum. Normal abdominal wall. There are diffuse degenerative changes of the visualized lumbar spine. PELVIS The urinary bladder is empty. The prostate is enlarged and measures 4.5 cm x 4.8 cm small right hydrocele. Normal visualized small intestine. Normal visualized colon. There is no pelvic fluid. There is no pelvic lymphadenopathy or mass lesion. There is diffuse atherosclerotic calcification of the pelvic arteries. CT/CT Chest, Abd, Pelvis WO Cont IMPRESSION: No acute abnormality is seen. Electronically Signed: Sanya Jacome MD at 15:25 EDT , CC: Dr. Spencer Rangel DO; Dr. Kerry Burger DO Insight Director: Signed Normal [facility] Determination of erythrocyte mean corpuscular volume (MCV)Ordered By: Spencer Rangel on 06-22-2023 MCV (RBC) [Entitic vol] 99.0 fL 80-94 [facility] Emergency Department Summary on 06-22-2023 Emergency Department Summary [facility] Medical Records Department [address] [place] [address] Emergency Department Summary 06/22/23 MR#: [id number] Acct: [id number] Name: BEAR SHINE Rep #: [id number] : 1950 73 From: Spencer Rangel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 [Entitic vol] 48.7 fL 35.1-43.9 [facility] Erythrocyte distribution width (RBC) [Ratio] 12.9 % 11.6-14.6 [facility] Immature granulocytes/100 WBC (Bld) 1.700 % 0.0-0.9 [facility] Comment on above: IG% - Immature Granu locytes (promyelocytes, myelocytes and metamyelocytes) > 1% indicates that a LEFT SHIFT is Present. MCH (RBC) [Entitic mass] 32.7 pg 27.0-32.0 [facility] Nucleated RBC/100 WBC (Bld) [Ratio] 0 % 0-5 [facility] MCHC Auto (RBC) [Mass/Vol]Or dered By: John Castano on 02-02-2023 MCHC (RBC) [Mass/Vol] 32.2 g/dL 32-36 [facility] No Panel InformationOrdered By: John Castano on 02-02-2023 Troponin I High Sensitivity 8 pg/mL 3.0-78.0 [facility] Comment on above: Please Note: New Mary t Units and Gender Specific Reference Ranges. For more information see Policy Stat Procedure [place] High Sensitivity Troponin (TNIH) and attachments. Estimated Creatinine Clearance Calc 45.83 ml/min [facility] Estimated GFR (MDRD) Amer 61 mL/min >60 [facility] Comment on above: GFR Calc Estimated GFR (MDRD) Non-Af Amer 50 mL/min >60 [facility] Comment on above: Non- GFR Calc Platelets bldOrdered By: Gemini Castano on 02-02-2023 Platelets (Bld) [#/Vol] 179 10*3/uL 150-450 [facility] Serum or plasma calcium libra urement (mass/volume)Ordered By: John Castano on 02-02-2023 Calcium [Mass/Vol] 8.2 mg/dL 8.5-10.1 [facility] Serum or plasma creatinine m easurement (mass/volume)Ordered By: John Castano on 02-02-2023 Creatinine [Mass/Vol] 1.46 mg/dL 0.70-1.30 [facility] Comment on above: The validity of the calculated GFR & GFRAA in patients over 70 years has not been determined. Clinical correlation is essential. Serum or plasma urea nitroge n measurement (mass/volume)Ordered By: John Castano on 02-02-2023 Urea nitrogen [Mass/Vol] 11 mg/dL 7-18 [facility] Thin prep Papanicolaou smear with manual screeningOrdered By: John Castano on 02-02-2023 Thin prep Papanicolaou smear with manual screening 3 5-15 [facility] Absolute lymphocyte countOrd ered By: Dr. Burger on 03-28-2022 Lymphocytes Auto (Unsp spec) [#/Vol] 0.95 10*3/uL 0.83-4.51 [facility] Basophil percentageOrdered B y: Dr. Burger on 03-28-2022 Basophils/100 WBC (Bld) 0.7 % 0-1 [facility] Bilirubin [Mass/Vol] 0.60 mg/dL 0.20-1.00 [facility] Comment on above: For patients on eltr ombopag therapy, use of Dimension [place] TBIL is not recommended. Chloride [Moles/Vol] 102 mmol/L 98-107 [facility] Cholesterol [Mass/Vol] 126 mg/dL <200 [facility] Comment on above: <200 mg/dL Desirable 200-240 mg/dL Borderline >240 mg/dL High Risk Eosinophils/100 WBC (Bld) 1.0 % 0-5 [facility] Glucose [Mass/Vol] 106 mg/dL 74-106 [facility] Comment on above: Fasting Glucose resu lt from 100 to 125 mg/dL suggests IMPAIRED HOMEOSTASIS per A.D.A. criteria. Neutrophils (Bld) [#/Vol] 7.1 10*3/uL 2.0-7.7 [facility] Neutrophils/100 WBC (Bld) 76.9 % 47-70 [facility] Potassium [Moles/Vol] 4.2 mmol/L 3.5-5.1 [facility] Protein [Mass/Vol] 7.2 g/dL 6.4-8.2 [facility] Sodium [Moles/Vol] 136 mmol/L 136-145 [facility] Testosterone [Mass/Vol] ng/dL [facility] Comment on above: CENTRAL 90% REFERENC E RANGES MALE AGE <50 197.44 - 669.58 ng/dL MALE AGE > or = 50 187.72 - 684.19 ng/dL FEMALE AGE <50 8.38 - 35.01 ng/dL FEMALE AGE > or = 50 <7.00 - 35.92 ng/dL Effective as of 10/02/20 Triglyceride [Mass/Vol] 117 mg/dL <199 [facility] Comment on above: The drugs N-Acetylcy steine and Metamizole may falsely depress this assay.Serum Triglycerides Reference Interval Normal <150 mg/dL Borderline high 150 - 199 mg/dL High 200 - 499 mg/dL Very High > or = 500 mg/dL WBC (Bld) [#/Vol] 9.2 10*3/uL 4.4-11.0 [facility] Blood erythrocytes count (nu mber/volume)Ordered By: Dr. Burger on 03-28-2022 RBC (Bld) [#/Vol] 5.29 10*6/uL 4.6-6.[address] [facility] Blood hemoglobin measurement (mass/volume)Ordered By: Dr. Burger on 03-28-2022 Hemoglobin (Bld) [Mass/Vol] 17.6 g/dL 13.0-16.5 [facility] Blood lymphocytes/100 leukoc ytesOrdered By: Dr. Burger on 03-28-2022 Lymphocytes/100 WBC (Bld) 10.3 % 19-41 [facility] Blood monocytes/100 leukocyt esOrdered By: Dr. Burger on 03-28-2022 Monocytes/100 WBC (Bld) 9.8 % 0-10 [facility] Blood platelet mean volumeOr dered By: Dr. Burger on 03-28-2022 Platelet mean volume (Bld) [Entitic vol] 11.4 fL 6.2-12.0 [facility] Determination of erythrocyte mean corpuscular volume (MCV)Ordered By: Dr. Burger on 03-28-2022 MCV (RBC) [Entitic vol] 103.0 fL 80-94 [facility] Hematocrit Auto (Bld) [Volum e fraction]Ordered By: Dr. Burger on 03-28-2022 Hematocrit (Bld) [Volume fraction] 54.5 % 40-54 [facility] - Chemistry and C hemistry - challengeOrdered By: Dr. Burger on 03-28-2022 ALP [Catalytic activity/Vol] 83 U/L 45-117 [facility] ALT [Catalytic activity/Vol] 51 U/L 16-61 [facility] CO2 [Moles/Vol] 27.0 mmol/L 21.0-32.0 [facility] Globulin (S) [Mass/Vol] 3.7 g/dL 2.2-4.2 [facility] Urea nitrogen/Creatinine [Mass ratio] 15.9 mg/mg 10-20 [facility] - Hematology and Cell countsOrdered By: Dr. Burger on 03-28-2022 Erythrocyte distribution width (RBC) [Entitic vol] 51.6 fL 35.1-43.9 [facility] Erythrocyte distribution width (RBC) [Ratio] 13.4 % 11.6-14.6 [facility] Immature granulocytes/100 WBC (Bld) 1.300 % 0.0-0.9 [facility] Comment on above: IG% - Immature Granu locytes (promyelocytes, myelocytes and metamyelocytes) > 1% indicates that a LEFT SHIFT is Present. MCH (RBC) [Entitic mass] 33.3 pg 27.0-32.0 [facility] Nucleated RBC/100 WBC (Bld) [Ratio] 0 % 0-5 [facility] MCHC Auto (RBC) [Mass/Vol]Or dered By: Dr. Burger on 03-28-2022 MCHC (RBC) [Mass/Vol] 32.3 g/dL 32-36 [facility] No Panel InformationOrdered By: Dr. Burger on 03-28-2022 Estimated GFR (MDRD) Amer 61 mL/min >60 [facility] Comment on above: GFR Calc Estimated GFR (MDRD) Non-Af Amer 51 mL/min >60 [facility] Comment on above: Non- GFR Calc Prostate Specific Antigen Screen 4.11 ng/mL 0.00-4.00 [facility] Comment on above: This test was perfor med using the TPSA assay method for the[facility] [employer] chemistry system. Values obtained with differentassay methods cannot be used interchangably.When changing PSA assays in the course of monitoring apatient, additional sequential testing should be carriedout to confirm baseline values. Thyroid Stimulating Hormone (TSH) 1.65 uIU/mL 0.358-3.74 [facility] Vitamin D 25-Hydroxy 41.6 ng/mL [facility] Comment on above: Vitamin D 25(OH) Sta tus Range Deficiency <20 ng/mL (50nmol/L) Insufficiency 20 - 30 ng/mL (50 - 75 nmol/L) Sufficiency 30 - 100 ng/mL (75 - 250 nmol/L) Toxicity >100 ng/mL (>250 nmol/L) Platelets bldOrdered By: Dr. Burger on 03-28-2022 Platelets (Bld) [#/Vol] 162 10*3/uL 150-450 [facility] Serum or plasma albumin libra urement (mass/volume)Ordered By: Dr. Burger on 03-28-2022 Albumin [Mass/Vol] 3.5 g/dL 3.2-5.0 [facility] Serum or plasma albumin/glob ulin mass ratioOrdered By: Dr. Burger on 03-28-2022 Albumin/Globulin [Mass ratio] 0.9 {ratio} 0.9-2.4 [facility] Serum or plasma calcium libra urement (mass/volume)Ordered By: Dr. Burger on 03-28-2022 Calcium [Mass/Vol] 8.3 mg/dL 8.5-10.1 [facility] Serum or plasma cholesterol in HDL measurement (mass/volume)Ordered By: Dr. Burger on 03-28-2022 Cholesterol in HDL [Mass/Vol] 46 mg/dL >40 [facility] Comment on above: The drugs N-Acetylcy steine and Metamizole may falsely depress this assay. Reference Range HDL <40 mg/dL Low HDL Cholesterol HDL >or= 60 mg/dL High HDL Cholesterol Serum or plasma cholesterol in VLDL measurement (mass/volume)Ordered By: Dr. Burger on 03-28-2022 Cholesterol in VLDL [Mass/Vol] 23 mg/dL 5-40 [facility] Serum or plasma creatinine m easurement (mass/volume)Ordered By: Dr. Burger on 03-28-2022 Creatinine [Mass/Vol] 1.45 mg/dL 0.70-1.30 [facility] Comment on above: The validity of the calculated GFR & GFRAA in patients over 70 years has not been determined. Clinical correlation is essential. Serum or plasma low density lipoprotein (LDL) cholesterol measurement (mass/volume)Ordered By: Dr. Burger on 03-28-2022 Cholesterol in LDL [Mass/Vol] 57 mg/dL 0-130 [facility] Serum or plasma urea nitroge n measurement (mass/volume)Ordered By: Dr. Burger on 03-28-2022 Urea nitrogen [Mass/Vol] 23 mg/dL 7-18 [facility] Thin prep Papanicolaou smear with manual screeningOrdered By: Dr. Burger on 03-28-2022 Thin prep Papanicolaou smear with manual screening 21 U/L 15-37 [facility] Thin prep Papanicolaou smear with manual screening 7 5-15 [facility] COVID-19on 05-23-2021 SARS-CoV-2 (COVID-19) RNA SOLO+probe Ql (Unsp spec) Not detected Not Detected [facility] Comment on above: Not Detected. Expected result: Not Detected _ Method: Real-time, RT-PCR Negative results do not preclude SARS-CoV-2 infection and should not be used as the sole basis for treatment or other patient management decisions. This assay was developed by [employer] and distributed under an Emergency Use Authorization (EUA) granted by the FDA for the qualitative detection of SARS-CoV-2 nucleic acid. Provider and patient fact sheets can be found at https://www.fda.gov/media/382370/download and https://www.fda.gov/media/918279/download. Test Performed by [email or web address], [address] [place] [id number] [facility] [id number] 05-23-2021 SARS-CoV-2 (COVID-19) RNA SOLO+probe Ql (Unsp spec) SARS-CoV-2 --> Status: F Not Detected. Expected result: Not Detected _ Method: Real-time, RT-PCR Negative results do not preclude SARS-CoV-2 infection and should not be used as the sole basis for treatment or other patient management decisions. This assay was developed by [employer] and distributed under an Emergency Use Authorization (EUA) granted by the FDA for the qualitative detection of SARS-CoV-2 nucleic acid. Provider and patient fact sheets can be found at https://www.fda.gov/media /816812/download and https://www.fda.gov/media /427542/download. Expected result: Not Detected _ Method: Real-time, RT-PCR Negative results do not preclude SARS-CoV-2 infection and should not be used as the sole basis for treatment or other patient management decisions. This assay was developed by [employer] and distributed under an Emergency Use Authorization (EUA) granted by the FDA for the qualitative detection of SARS-CoV-2 nucleic acid. Provider and patient fact sheets can be found at https://www.[employer].gov/media /686172/download and https://www.[employer].gov/media /174376/download. Normal [facility] [employer] [facility] Comment on above: Performed By: #### C OVID ####[facility] [employer] [id number] [place] [address] VL DUP LOWER EXTREMITY VENOU S BILATERALon 05-23-2021 [facility] [place] [facility] Lower Extremity Venous Duplex Report Patient Rl, : 1950 Study 05/23/2021 Name: Bear Vegas (71yrs) Date: Patient [id number] Age: 71 Account: [id number] ID: Gender: M Loc: 5102 BP: Ordering Physician: Pk Pruitt Records Coordinator: Audrey Mohamud RVT Interpreting Physician: Rio Avila MD Location: [facility] Indications: Edema. Conclusions 1. There is no evidence of acute deep or superficial venous thrombosis noted in the right lower extremity. 2. There is no evidence of acute deep or superficial venous thrombosis noted in the left lower extremity. History: Risk factors: Former tobacco use. Hypertension. Obese. Hyperlipidemia. Age over 65 years. Study data: Complete lower extremity venous duplex evaluation. Grayscale 2D imaging, color Doppler imaging, and spectral Doppler analysis. Location: Vascular laboratory. Procedure: A vascular evaluation was performed with the patient in the supine position. Images were obtained using a InPact[employer]mes vascular ultrasound machine. The study was technically limited due to immobility and patient positioning. Venous flow and imaging: + +- +----- + +Location +Overall +Properties + + +- +----- + +R CFV +Patent +Normal phasicity; + + + +spontaneous; normal + + + +augmentation; + + + +compressible + + +- +----- + +R saphenofemoral +Patent +Compressible + +junction + + + + +- +----- + +R profunda femoral +Patent + -+ + +- +----- + +R FV - prox. +Patent +Compressible + + +- +----- + +R FV - mid +Patent +Normal phasicity; + + + +spontaneous; normal + + + +augmentation; + + + +compressible + + +- +----- + +R FV - distal +Patent with color +Spontaneous + + +flow and Doppler + + + +imaging + + + +- +----- + +R popliteal +Patent +Normal phasicity; + + + +spontaneous; normal + + + +augmentation; + + + +compressible + + +- +----- + +R gastrocnemius +Patent +Compressible + + +- +----- + +R PTV +Patent +Compressible + + +- +----- + +R peroneal +Patent +Compressible + + +- +----- + +R soleal +Patent +Compressible + + +- +----- + +R GSV +Patent +Compressible + + +- +----- + +L CFV +Patent +Normal phasicity; + + + +spontaneous; normal + + + +augmentation; + (more content not included)... [facility]ARD[facility] Rio Avila MD - 05/23/2021 [facility] Lower Extremity Venous Duplex Report Patient DO RlB: 1950 Study 05/23/2021 Name: Bear Vegas (yr) Date: Patient [id number] Age: 71 Account: [id number] ID: Gender: M Loc: 5102 BP: Ordering Physician: Pk Pruitt Records Coordinator: Audrey Oneida, RVT Interpreting Physician: Rio Avila MD Location: [facility] Indications: Edema. Conclusions 1. There is no evidence of acute deep or superficial venous thrombosis noted in the right lower extremity. 2. There is no evidence of acute deep or superficial venous thrombosis noted in the left lower extremity. History: Risk factors: Former tobacco use. Hypertension. Obese. Hyperlipidemia. Age over 65 years. Study data: Complete lower extremity venous duplex evaluation. Grayscale 2D imaging, color Doppler imaging, and spectral Doppler analysis. Location: Vascular laboratory. Procedure: A vascular evaluation was performed with the patient in the supine position. Images were obtained using a InPact.mes vascular ultrasound machine. The study was technically limited due to immobility and patient positioning. Venous flow and imaging: + +- +----- + +Location +Overall +Properties + + +- +----- + +R CFV +Patent +Normal phasicity; + + + +spontaneous; normal + + + +augmentation; + + + +compressible + + +- +----- + +R saphenofemoral +Patent +Compressible + +junction + + + + +- +----- + +R profunda femoral +Patent + -+ + +- +----- + +R FV - prox. +Patent +Compressible + + +- +----- + +R FV - mid +Patent +Normal phasicity; + + + +spontaneous; normal + + + +augmentation; + + + +compressible + + +- +----- + +R FV - distal +Patent with color +Spontaneous + + +flow and Doppler + + + +imaging + + + +- +----- + +R popliteal +Patent +Normal phasicity; + + + +spontaneous; normal + + + +augmentation; + + + +compressible + + +- +----- + +R gastrocnemius +Patent +Compressible + + +- +----- + +R PTV +Patent +Compressible + + +- +----- + +R peroneal +Patent +Compressible + + +- +----- + +R soleal +Patent +Compressible + + +- +----- + +R GSV +Patent +Compressible + + +- +----- + +L CFV +Patent +Normal phasicity; + + + +spontaneous; normal + + + +augmentation; + + + +compressible + + +- +----- + +L saphenofemoral +Patent +Compressible + +junction + + + + +- +----- + +L profunda femoral +Patent + -+ + +- +----- + +L FV - prox. +Patent +Compressible + + +- +----- + +L FV - mid +Patent +Normal phasicity; + + + +spontaneous; normal + + + +augmentation; + + + +compressible + + +- +----- + +L FV - distal +Patent with color +Spontaneous + + +flow and Doppler + + + +imaging + + + +- +----- + +L popliteal +Patent +Normal phasicity; + + + +spontaneous; normal + + + +augmentation; + + + +compressible + + +- +----- + +L gastrocnemius +Patent +Compressible + + +- +----- + +L PTV +Patent +Compressible + + (more content not included)... [employer] Work Phone: [phone] [employer] Work Phone: Radiology Study observation (narrative) [employer] Work Phone: VL Venous Duplex US Lower Ex t Bilateralon 05-23-2021 VL Venous Duplex US Lower Ext Bilateral Patient Name: BEAR SHINE Ultrasound ACCESSION EXAM DATE/TIME PROCEDURE ORDERING PROVIDER [id number] 05/23/2021 09:59 EDT VL Venous Duplex [place] [id number] -PK PRUITT Lower Ext Bilateral CPT code 89601 Reason For Exam (VL Venous Duplex US Lower Ext Bilateral) edema Report [facility] Lower Extremity Venous Duplex Report Patient RlDOB: 1950 Study 05/23/2021 Name: Bear Vegas (71yrs) Date: Patient [id number] Age: 71 Account: [id number] ID: Gender: M Loc: 5102 BP: Ordering Physician: Pk Pruitt Records Coordinator: Audrey Mohamud RVT Interpreting Physician: Rio Avila MD Location: [facility] Indications: Edema. Conclusions 1. There is no evidence of acute deep or superficial venous thrombosis noted in the right lower extremity. 2. There is no evidence of acute deep or superficial venous thrombosis noted in the left lower extremity. History: Risk factors: Former tobacco use. Hypertension. Obese. Hyperlipidemia. Age over 65 years. Study data: Complete lower extremity venous duplex evaluation. Grayscale 2D imaging, color Doppler imaging, and spectral Doppler analysis. Location: Vascular laboratory. Procedure: A vascular evaluation was performed with the patient in the supine position. Images were obtained using a InPact.mes vascular ultrasound machine. The study was technically limited due to immobility and patient Ultrasound Report positioning. Venous flow and imaging: + +- +----- + +Location +Overall +Properties + + +- +----- + +R CFV +Patent +Normal phasicity; + + + +spontaneous; normal + + + +augmentation; + + + +compressible + + +- +----- + +R saphenofemoral +Patent +Compressible + +junction + + + + +- +----- + +R profunda femoral +Patent + -+ + +- +----- + +R FV - prox. +Patent +Compressible + + +- +----- + +R FV - mid +Patent +Normal phasicity; + + + +spontaneous; normal + + + +augmentation; + + + +compressible + + +- +----- + +R FV - distal +Patent with color +Spontaneous + + +flow and Doppler + + + +imaging + + + +- +----- + +R popliteal +Patent +Normal phasicity; + + + +spontaneous; normal + + + +augmentation; + + + +compressible + + +- +----- + +R gastrocnemius +Patent +Compressible + + +- +----- + +R PTV +Patent +Compressible + + +- +----- + +R peroneal +Patent +Compressible + + +- +----- + +R soleal +Patent +Compressible + + +- +----- + +R GSV +Patent +Compressible + + +- +----- + +L CFV +Patent +Normal phasicity; + + + +spontaneous; normal + + + +augmentation; + + + +compressible + + +- +----- + +L saphenofemoral +Patent +Compressible + +junction + + + + +- +----- + +L profunda femoral +Patent + -+ + +- +----- + +L FV - prox. +Patent +Compressible + + +- +----- + +L FV - mid +Patent +Normal phasicity; + + + +spontaneous; normal + + + +augmentation; + + + +compressible + + +- +----- + +L FV - distal +Patent with color +Spontaneous + Ultrasound Report + +flow and Doppler + + + +imaging + + + +- +----- + +L popliteal +Patent +Normal phasicity; + + + +spontaneous; normal + + + +augment (more content not included)... Normal [facility] Hepatic Functionon 2 ALP [Catalytic activity/Vol] 79 U/L Normal 38-126 [facility] [employer] [facility] Comment on above: Result Comment: Slig htly hemolysed, interpret with caution. Performed By: #### L FT3 #### [employer] [facility] [address] [place] [address] ALT [Catalytic activity/Vol] 21 U/L Normal 0-49 [facility] Comment on above: Result Comment: The ALT test is performed by an updated assay method. Please note that the reference intervals have been changed and are now sex specific. Performed By: #### L FT3 #### [facility] [employer] [facility] [address] [place] [address] AST [Catalytic activity/Vol] 44 U/L Normal 15-46 [facility] Comment on above: Result Comment: Slig htly hemolysed, interpret with caution. Performed By: #### L FT3 #### [facility] [employer] [facility] [address] [place] [address] Bilirubin [Mass/Vol] 0.7 mg/dL Normal 0.2-1.3 [facility] Comment on above: Performed By: #### L FT3 #### [facility] [employer] [facility] [address] [place] [address] Protein [Mass/Vol] 7.1 g/dL Normal 6.3-8.2 [facility] Comment on above: Performed By: #### L FT3 #### [facility] [employer] [facility] [address] [place] [address] Bilirubin.indirect [Mass/Vol] 0.0 mg/dL Normal 0.0-0.3 [facility] Comment on above: Performed By: #### L FT3 #### [facility] [address] [place] [address] Albumin [Mass/Vol] 3.9 g/dL Normal 3.5-5.0 [facility] Comment on above: Performed By: #### L FT3 #### [facility] [employer] [facility] [address] [place] [address] Hepatic Function Panelon Albumin [Mass/Vol] 3.9 g/dL 3.5 - 5.0 g/dL [facility] Work Phone: ALP (Bld) [Catalytic activity/Vol] 79 U/L 38 - 126 U/L [facility] Work Phone: Comment on above: Slightly hemolysed, interpret with caution. ALT [Catalytic activity/Vol] 21 U/L 0 - 49 U/L [facility] Work Phone: Comment on above: The ALT test is perf ormed by an updated assay method. Please note that the reference intervals have been changed and are now sex specific. AST [Catalytic activity/Vol] 44 U/L 15 - 46 U/L [facility] Work Phone: Comment on above: Slightly hemolysed, interpret with caution. Bilirubin [Mass/Vol] 0.7 mg/dL 0.2 - 1 .3 mg/dL [facility] Work Phone: Bilirubin.indirect [Mass/Vol] 0.0 mg/dL 0.0 - 0.3 mg/dL [facility] Work Phone: [phone] Free PSA/Total PSA [Mass fraction] 7.1 g/dL 6.3 - 8.2 g/dL [facility] Work Phone: [phone] Test Performed by [facility], [address] [place] [id number] [place] [address] - [facility] Work Phone: PSA Screeningon 05-21-2021 Test Performed by [facility], [address] [place] [address] - [facility] Work Phone: Prostate Specific Ag Screeno n 05-21-2021 Prostate Specific Ag Screen 2.180 ng/mL Normal < 4.000 [facility] Comment on above: Result Comment: Test ing performed on the SMGBB 5600 using an immunometric methodology. Results obtained by different methods should not be used interchangeably. Performed By: #### P SA3S #### [facility] [address] [place] [address] Add On Lab Teston 05-20-2021 Add On Accepted [facility] Comment on above: Specimen available & acceptable for analysis. Test Performed by [facility], [address] [place] [id number] [place] [address] - [facility] Add on test from HISon 05-20 Add on test from HIS Accepted Normal [facility] Comment on above: Result Comment: Spec imen available & acceptable for analysis. Performed By: #### A DDON ####[facility] [place] [address] Phenobarbitalon 05-20-2021 PHENobarbital [Mass/Vol] 31.1 ug/mL Normal 10.0-40.0 [facility] Comment on above: Performed By: #### P HNO3, BMP3 ####[employer] [address] [place] [address] Phenobarbital Levelon 2021 PHENobarbital [Mass/Vol] 31.1 ug/mL 10.0 - 40.0 ug/mL [facility] Test Performed by [facility] [employer] [facility], [address] [place] [address] [facility] HeTexted [facility] VL DUP LOWER EXTREMITY VENOU S BILATERALon 05-20-2021 [facility] [employer] [facility] [place] [facility] Lower Extremity Venous Duplex Report Patient Rl, : 1950 Study 05/20/2021 Name: Bear Vegas (71yr) Date: Patient [id number] Age: 71 Account: [id number] ID: Gender: M Loc: 5102 BP: Ordering Physician: Pk Pruitt Records Coordinator: Allison Calhoun RVT Interpreting Physician: Rio Avila MD Location: [facility] Indications: BLE edema. Conclusions 1. There is no evidence of acute deep or superficial venous thrombosis noted in the right lower extremity. 2. There is no evidence of acute deep or superficial venous thrombosis noted in the left lower extremity. History: Risk factors: Immobility. Age over 65 years. Study data: Complete lower extremity venous duplex evaluation. Grayscale 2D imaging, color Doppler imaging, and spectral Doppler analysis. Location: Vascular laboratory. Procedure: A vascular evaluation was performed with the patient in the supine position. Images were obtained using a InPact[employer]mes vascular ultrasound machine. Venous flow and imaging: + -+-------+ + +Location +Overall+Properties + + -+-------+ + +R CFV +Patent +Normal phasicity; spontaneous; + + + +normal augmentation; compressible + + -+-------+ + +R saphenofemoral junction+Patent +Compressible + + -+-------+ + +R profunda femoral +Patent + + + -+-------+ + +R FV - prox. +Patent +Compressible + + -+-------+ + +R FV - mid +Patent +Normal phasicity; spontaneous; + + + +normal augmentation; compressible + + -+-------+ + +R FV - distal +Patent +Compressible + + -+-------+ + +R popliteal +Patent +Normal phasicity; spontaneous; + + + +normal augmentation; compressible + + -+-------+ + +R gastrocnemius +Patent +Compressible + + -+-------+ + +R PTV +Patent +Compressible + + -+-------+ + +R peroneal +Patent +Compressible + + -+-------+ + +R soleal +Patent +Compressible + + -+-------+ + +R GSV +Patent +Compressible + + -+-------+ + +L CFV +Patent +Normal phasicity; spontaneous; + + + +normal augmentation; compressible + + -+-------+ + +L saphenofemoral junction+Patent +Compressible + + -+-------+ + +L profunda femoral +Patent + + + -+-------+ + +L FV - prox. +Patent +Compressible + + -+-------+ + +L FV - mid +Patent +Normal phasicity; spontaneous; + + + +normal augmentation; compressible + + -+-------+ + +L FV - distal +Patent +Compressible + + -+-------+ (more content not included)... [facility] CARDIOLOGY Rio Avila MD - 05/20/2021 [facility] Lower Extremity Venous Duplex Report Patient Rl, : 1950 Study 05/20/2021 Name: Bear Vegas (71yrs) Date: Patient [id number] Age: 71 Account: [id number] ID: Gender: M Loc: 5102 BP: Ordering Physician: Pk Pruitt Records Coordinator: Allison Calhoun RVT Interpreting Physician: Rio Avila MD Location: [facility] Indications: BLE edema. Conclusions 1. There is no evidence of acute deep or superficial venous thrombosis noted in the right lower extremity. 2. There is no evidence of acute deep or superficial venous thrombosis noted in the left lower extremity. History: Risk factors: Immobility. Age over 65 years. Study data: Complete lower extremity venous duplex evaluation. Grayscale 2D imaging, color Doppler imaging, and spectral Doppler analysis. Location: Vascular laboratory. Procedure: A vascular evaluation was performed with the patient in the supine position. Images were obtained using a InPact[employer]mes vascular ultrasound machine. Venous flow and imaging: + -+-------+ + +Location +Overall+Properties + + -+-------+ + +R CFV +Patent +Normal phasicity; spontaneous; + + + +normal augmentation; compressible + + -+-------+ + +R saphenofemoral junction+Patent +Compressible + + -+-------+ + +R profunda femoral +Patent + + + -+-------+ + +R FV - prox. +Patent +Compressible + + -+-------+ + +R FV - mid +Patent +Normal phasicity; spontaneous; + + + +normal augmentation; compressible + + -+-------+ + +R FV - distal +Patent +Compressible + + -+-------+ + +R popliteal +Patent +Normal phasicity; spontaneous; + + + +normal augmentation; compressible + + -+-------+ + +R gastrocnemius +Patent +Compressible + + -+-------+ + +R PTV +Patent +Compressible + + -+-------+ + +R peroneal +Patent +Compressible + + -+-------+ + +R soleal +Patent +Compressible + + -+-------+ + +R GSV +Patent +Compressible + + -+-------+ + +L CFV +Patent +Normal phasicity; spontaneous; + + + +normal augmentation; compressible + + -+-------+ + +L saphenofemoral junction+Patent +Compressible + + -+-------+ + +L profunda femoral +Patent + + + -+-------+ + +L FV - prox. +Patent +Compressible + + -+-------+ + +L FV - mid +Patent +Normal phasicity; spontaneous; + + + +normal augmentation; compressible + + -+-------+ + +L FV - distal +Patent +Compressible + + -+-------+ + +L popliteal +Patent +Normal phasicity; spontaneous; + + + +normal augmentation; compressible + + -+-------+ + +L gastrocnemius +Patent +Compressible + + -+-------+ + +L PTV +Patent +Compressible + + -+-------+ + +L peroneal +Patent +Compressible + + -+-------+ + +L soleal +Patent +Compressible + + -+-------+ + +L GSV +Patent +Compressible + + (more content not included)... [employer] Work Phone: Radiology Study observation (narrative) [facility] Work Phone: VL DUP LOWER EXTREMITY VENOU S BILATERALOrdered By: Rio Avila on 05-20-2021 [employer] Work Phone: VL Venous Duplex US Lower Ex t Bilateralon 05-20-2021 VL Venous Duplex US Lower Ext Bilateral Patient Name: BEAR SHINE [facility] [employer]#: [id number] Ultrasound ACCESSION EXAM DATE/TIME PROCEDURE ORDERING PROVIDER [id number] 05/20/2021 10:05 EDT VL Venous Duplex US [id number] -PK PRUITT Lower Ext Bilateral CPT code 13194 Reason For Exam (VL Venous Duplex US Lower Ext Bilateral) edema Report [facility] Lower Extremity Venous Duplex Report Patient Rl : 1950 Study 05/20/2021 Name: Bear Vegas (71yrs) Date: Patient Age: 71 Account: [id number] ID: Gender: M Loc: 5102 BP: Ordering Physician: Pk Pruitt Records Coordinator: Allison Calhoun RVT Interpreting Physician: Rio Avila MD Location: [facility] Indications: BLE edema. Conclusions 1. There is no evidence of acute deep or superficial venous thrombosis noted in the right lower extremity. 2. There is no evidence of acute deep or superficial venous thrombosis noted in the left lower extremity. History: Risk factors: Immobility. Age over 65 years. Study data: Complete lower extremity venous duplex evaluation. Grayscale 2D imaging, color Doppler imaging, and spectral Doppler analysis. Location: Vascular laboratory. Procedure: A vascular evaluation was performed with the patient in the supine position. Images were obtained using a [employer] vascular ultrasound machine. Ultrasound Report Venous flow and imaging: + -+-------+ + +Location +Overall+Properties + + -+-------+ + +R CFV +Patent +Normal phasicity; spontaneous; + + + +normal augmentation; compressible + + -+-------+ + +R saphenofemoral junction+Patent +Compressible + + -+-------+ + +R profunda femoral +Patent + + + -+-------+ + +R FV - prox. +Patent +Compressible + + -+-------+ + +R FV - mid +Patent +Normal phasicity; spontaneous; + + + +normal augmentation; compressible + + -+-------+ + +R FV - distal +Patent +Compressible + + -+-------+ + +R popliteal +Patent +Normal phasicity; spontaneous; + + + +normal augmentation; compressible + + -+-------+ + +R gastrocnemius +Patent +Compressible + + -+-------+ + +R PTV +Patent +Compressible + + -+-------+ + +R peroneal +Patent +Compressible + + -+-------+ + +R soleal +Patent +Compressible + + -+-------+ + +R GSV +Patent +Compressible + + -+-------+ + +L CFV +Patent +Normal phasicity; spontaneous; + + + +normal augmentation; compressible + + -+-------+ + +L saphenofemoral junction+Patent +Compressible + + -+-------+ + +L profunda femoral +Patent + + + -+-------+ + +L FV - prox. +Patent +Compressible + + -+-------+ + +L FV - mid +Patent +Normal phasicity; spontaneous; + + + +normal augmentation; compressible + + -+-------+ + +L FV - distal +Patent +Compressible + + -+-------+ + +L popliteal +Patent +Normal phasicity; spontaneous; + + + +normal augmentation; compressible + + -+-------+ + +L gastrocnemius +Patent +Compressible + + -+-------+ + +L PTV +Patent +Compressible + + -+-------+ + +L peroneal +Patent +Compressi (more content not included)... Normal [facility] Basic Metabolic Panelon - Calcium [Mass/Vol] 8.6 mg/dL Normal 8.4-10.4 [facility] Comment on above: Performed By: #### P HNO3, BMP3 ####[facility] [place] [address] Glucose [Mass/Vol] 80 mg/dL Normal 70-100 [facility] Comment on above: Performed By: #### P HNO3, BMP3 ####[address] [place] [address] Urea nitrogen [Mass/Vol] 11 mg/dL Normal 7-17 [facility] Comment on above: Performed By: #### P HNO3, BMP3 ####[address] [facility] [place] Anion gap [Moles/Vol] 4 mmol/L Normal 3-13 [facility] Comment on above: Performed By: #### P HNO3, BMP3 ####[facility] [employer] [id number] [facility], [place] CO2 [Moles/Vol] 35 mmol/L High 22-30 [facility] Comment on above: Performed By: #### P HNO3, BMP3 ####[facility] [employer] [address] [facility], [place] Creatinine [Mass/Vol] 1.06 mg/dL Normal 0.52-1.25 [facility] Comment on above: Performed By: #### P HNO3, BMP3 ####[facility] [employer] [id number] [facility] [address] GFR/1.73 sq M.predicted among blacks MDRD (S/P/Bld) [Vol rate/Area] 80.3 mL/min/{1.73_m2} Normal >60 [facility] Comment on above: Performed By: #### P HNO3, BMP3 ####[address] [place] [address] GFR/1.73 sq M.predicted among non-blacks MDRD (S/P/Bld) [Vol rate/Area] 69.3 mL/min/{1.73_m2} Normal >60 [facility] Comment on above: Result Comment: KDIG O guidelines provide the following GFR categories: Stage GFR(ml/min/1.73 m2) Terms G1 >=90 Normal or high G2 60-89 Mildly decreased* G3a 45-59 Mildly to moderately decreased G3b 30-44 Moderately to severely decreased G4 15-29 Severely decreased G5 <15 Kidney failure *Relative to young adult level. In the absence of evidence of kidney damage, neither GFR category G1 nor G2 fulfill the criteria for CKD. The CKD-EPI equation is validated in individuals 18 years of age and older. Currently the best equation for estimating glomerular filtration rate (GFR) from serum creatinine in children is the Bedside Riddle equation. It is less accurate in patients with extremes of muscle mass, restriction of dietary protein, ingestion of creatine, extra-renal metabolism of creatinine, or treatment with medications that affect renal tubular creatinine secretion. Performed By: #### P HNO3 BMP3 ####[address] [place], [place] Potassium [Moles/Vol] 4.2 mmol/L Normal 3.5-5.1 [facility] Comment on above: Performed By: #### P HNO3 BMP3 ####[address] Chloride [Moles/Vol] 97 mmol/L Low 98-107 [facility] Comment on above: Performed By: #### P HNO3 BMP3 ####[address] [place], [place] Sodium [Moles/Vol] 135 mmol/L Normal 135-145 [facility] Comment on above: Performed By: #### P HNO3 BMP3 ####[address] Anion gap [Moles/Vol] 4 mmol/L 3 - 13 mmol/L [facility] Calcium [Mass/Vol] 8.6 mg/dL 8.4 - 10. 4 mg/dL [facility] Chloride [Moles/Vol] 97 mmol/L Low 98 - 10 7 mmol/L [facility] CO2 [Moles/Vol] 35 mmol/L High 22 - 30 mmol/L [facility] Creatinine [Mass/Vol] 1.06 mg/dL 0.52 - 1.25 mg/dL [facility] EGFR IF NonAfrican [place] 69.3 mL/min >60 [facility] Comment on above: KDIGO guidelines pro vide the following GFR categories: Stage GFR(ml/min/1.73 m2) Terms G1 >=90 Normal or high G2 60-89 Mildly decreased* G3a 45-59 Mildly to moderately decreased G3b 30-44 Moderately to severely decreased G4 15-29 Severely decreased G5 <15 Kidney failure *Relative to young adult level. In the absence of evidence of kidney damage, neither GFR category G1 nor G2 fulfill the criteria for CKD. The CKD-EPI equation is validated in individuals 18 years of age and older. Currently the best equation for estimating glomerular filtration rate (GFR) from serum creatinine in children is the Bedside Riddle equation. It is less accurate in patients with extremes of muscle mass, restriction of dietary protein, ingestion of creatine, extra-renal metabolism of creatinine, or treatment with medications that affect renal tubular creatinine secretion. GFR/1.73 sq M.predicted among blacks MDRD (S/P/Bld) [Vol rate/Area] 80.3 mL/min/{1.73_m2} >60 [facility] Glucose [Mass/Vol] 80 mg/dL 70 - 100 mg/dL [facility] Interpretation and review of laboratory results Abnormal [facility] Potassium [Moles/Vol] 4.2 mmol/L 3.5 - 5.1 mmol/L [facility] Sodium [Moles/Vol] 135 mmol/L 135 - 145 mmol/L [facility] Urea nitrogen (BldV) [Mass/Vol] 11 mg/dL 7 - 17 mg/dL [facility] Test Performed by [facility], [address] [place] [id number] [facility] CBC with Auto Differentialon 05-19-2021 Absolute Baso # 0.0 10*3/uL 0.0 - 0.2 10*3/uL [facility] Absolute Neut # 5.7 10*3/uL 1.8 - 7.0 10*3/uL [facility] Basophils/100 WBC (Bld) 0.3 % 0.0 - 2.0 % [facility] Eosinophils (Bld) [#/Vol] 0.2 10*3/uL 0.0 - 0.5 10*3/uL [facility] Eosinophils/100 WBC (Bld) 3.0 % 1.0 - 6.0 % [facility] Granulocytes/100 WBC (Bld) 74.4 % 40.0 - 80.0 % [facility] Hematocrit (Bld) [Volume fraction] 49.9 % 40.0 - 52.0 % [facility] Hemoglobin.gastrointes tinal spec 1 Ql (Stl) 16.1 g/dL 13.0 - 18.0 g/dL [facility] Interpretation and review of laboratory results Abnormal [facility] Lymphocytes (Bld) [#/Vol] 0.8 10*3/uL Low 1.0 - 4.3 10*3/uL [facility] Lymphocytes/100 WBC (Bld) 10.5 % Low 20.0 - 40.0 % [facility] MCH (RBC) [Entitic mass] 32.2 pg 26.0 - 34.0 pg [facility] MCHC (RBC) [Mass/Vol] 32.2 % 32.0 - 36.0 % [facility] MCV (RBC) [Entitic vol] 100.1 fL High 80.0 - 98.0 fL [facility] Monocytes (Bld) [#/Vol] 0.9 10*3/uL High 0.0 - 0.8 10*3/uL [facility] Monocytes/100 WBC (Bld) 11.8 % High 2.0 - 10.0 % [facility] Platelet distribution width (Bld) [Ratio] 14.2 % 11.5 - 14.5 % [facility] Platelet mean volume (Bld) [Entitic vol] 9.4 fL 7.4 - 10.4 fL [facility] Platelets (Bld) [#/Vol] 135 10*3/uL Low 140 - 440 10*3/uL [facility] RBC (Bld) [#/Vol] 4.99 10*6/uL 4.40 - 5.9 0 10*6/uL [facility] WBC (Bld) [#/Vol] 7.7 10*3/uL 3.6 - 10.7 10*3/uL [facility] Test Performed by [facility], [facility] [place], [place] [id number] [place] [address] LAB [facility] Hemogram w/ Autodiffon 05-19 Abs Baso Cnt 0.0 10*3/uL Normal 0.0-0.2 [facility] Comment on above: Performed By: #### H EMDF ####[address] Abs Neutrophile Cnt 5.7 10*3/uL Normal 1.8-7.0 [facility] Comment on above: Performed By: #### H EMDF ####[address] Basophils/100 WBC (Bld) 0.3 % Normal 0.0-2.0 [facility] Comment on above: Performed By: #### H EMDF ####[address] Eosinophils (Bld) [#/Vol] 0.2 10*3/uL Normal 0.0-0.5 [facility] Comment on above: Performed By: #### H EMDF ####[address] Eosinophils/100 WBC (Bld) 3.0 % Normal 1.0-6.0 [facility] Comment on above: Performed By: #### H EMDF ####[address] Erythrocyte distribution width (RBC) [Ratio] 14.2 % Normal 11.5-14.5 [facility] Comment on above: Performed By: #### H EMDF ####[address] Granulocytes/100 WBC (Bld) 74.4 % Normal 40.0-80.0 [facility] Comment on above: Performed By: #### H EMDF ####[address] Hematocrit (Bld) [Volume fraction] 49.9 % Normal 40.0-52.0 [facility] Comment on above: Performed By: #### H EMDF ####[address] Hemoglobin (Bld) [Mass/Vol] 16.1 g/dL Normal 13.0-18.0 [facility] Comment on above: Performed By: #### H EMDF ####[address] Lymphocytes (Bld) [#/Vol] 0.8 10*3/uL Low 1.0-4.3 [facility] Comment on above: Performed By: #### H EMDF ####[address] Lymphocytes/100 WBC (Bld) 10.5 % Low 20.0-40.0 [facility] Comment on above: Performed By: #### H EMDF ####[address] MCH (RBC) [Entitic mass] 32.2 pg Normal 26.0-34.0 [facility] Comment on above: Performed By: #### H EMDF ####[address] MCHC 32.2 % Normal 32.0-36.0 [facility] Comment on above: Performed By: #### H EMDF ####[address] MCV (RBC) [Entitic vol] 100.1 fL High 80.0-98.0 [facility] Comment on above: Performed By: #### H EMDF ####[address] Monocytes (Bld) [#/Vol] 0.9 10*3/uL High 0.0-0.8 [facility] Comment on above: Performed By: #### H EMDF ####[address] Monocytes/100 WBC (Bld) 11.8 % High 2.0-10.0 [facility] Comment on above: Performed By: #### H EMDF ####[address] Platelet mean volume (Bld) [Entitic vol] 9.4 fL Normal 7.4-10.4 [facility] Comment on above: Performed By: #### H EMDF ####[address] [place], [place] Platelets (Bld) [#/Vol] 135 10*3/uL Low 140-440 [facility] Comment on above: Performed By: #### H EMDF ####[address] [place], [place] RBC (Bld) [#/Vol] 4.99 10*6/uL Normal 4.40-5.90 [facility] Comment on above: Performed By: #### H EMDF ####[address] [place], [place] WBC (Bld) [#/Vol] 7.7 10*3/uL Normal 3.6-10.7 [facility] Comment on above: Performed By: #### H EMDF ####[address] Basic Metabolic Panelon 05-07 Calcium [Mass/Vol] 8.6 mg/dL Normal 8.4-10.4 [facility] Comment on above: Performed By: #### H DAMIAN BMP3 ####[address] [place], [place] Anion gap [Moles/Vol] 2 mmol/L Low 3-13 [facility] Comment on above: Performed By: #### H DAMIAN BMP3 ####[address] [place], [place] CO2 [Moles/Vol] 31 mmol/L High 22-30 [facility] Comment on above: Performed By: #### H DAMIAN BMP3 ####[address] [place], [place] Creatinine [Mass/Vol] 1.03 mg/dL Normal 0.52-1.25 [facility] Comment on above: Performed By: #### H EMDF, BMP3 ####[email or web address] [place] [address] GFR/1.73 sq M.predicted among blacks MDRD (S/P/Bld) [Vol rate/Area] 83.1 mL/min/{1.73_m2} Normal >60 [facility] Comment on above: Performed By: #### H DAMIAN BMP3 ####[email or web address] [place] [address] GFR/1.73 sq M.predicted among non-blacks MDRD (S/P/Bld) [Vol rate/Area] 71.7 mL/min/{1.73_m2} Normal >60 [facility] Comment on above: Result Comment: KDIG O guidelines provide the following GFR categories: Stage GFR(ml/min/1.73 m2) Terms G1 >=90 Normal or high G2 60-89 Mildly decreased* G3a 45-59 Mildly to moderately decreased G3b 30-44 Moderately to severely decreased G4 15-29 Severely decreased G5 <15 Kidney failure *Relative to young adult level. In the absence of evidence of kidney damage, neither GFR category G1 nor G2 fulfill the criteria for CKD. The CKD-EPI equation is validated in individuals 18 years of age and older. Currently the best equation for estimating glomerular filtration rate (GFR) from serum creatinine in children is the Bedside Riddle equation. It is less accurate in patients with extremes of muscle mass, restriction of dietary protein, ingestion of creatine, extra-renal metabolism of creatinine, or treatment with medications that affect renal tubular creatinine secretion. Performed By: #### H JAMES SALGADO3 ####[email or web address] [place], [place] Glucose [Mass/Vol] 94 mg/dL Normal 70-100 [facility] Comment on above: Performed By: #### H JAMES SALGADO3 ####[email or web address] [place], [place] Urea nitrogen [Mass/Vol] 14 mg/dL Normal 7-17 [facility] Comment on above: Performed By: #### H DAMIAN BMP3 ####[email or web address] [place], [place] Chloride [Moles/Vol] 103 mmol/L Normal 98-107 [facility] Comment on above: Performed By: #### H JAMES SALGADO3 ####[facility] [place], [place] Potassium [Moles/Vol] 4.3 mmol/L Normal 3.5-5.1 [facility] Comment on above: Performed By: #### H JAMES SALGADO3 ####[facility] [place], [place] Sodium [Moles/Vol] 136 mmol/L Normal 135-145 [facility] Comment on above: Performed By: #### H JAMES SALGADO3 ####[address] [place], [place] Anion gap [Moles/Vol] 2 mmol/L Low 3 - 13 mmol/L [facility] Calcium [Mass/Vol] 8.6 mg/dL 8.4 - 10. 4 mg/dL [facility] Chloride [Moles/Vol] 103 mmol/L 98 - 10 7 mmol/L [facility] CO2 [Moles/Vol] 31 mmol/L High 22 - 30 mmol/L [facility] Creatinine [Mass/Vol] 1.03 mg/dL 0.52 - 1.25 mg/dL [facility] EGFR IF NonAfrican [place] 71.7 mL/min >60 [facility] Comment on above: KDIGO guidelines pro vide the following GFR categories: Stage GFR(ml/min/1.73 m2) Terms G1 >=90 Normal or high G2 60-89 Mildly decreased* G3a 45-59 Mildly to moderately decreased G3b 30-44 Moderately to severely decreased G4 15-29 Severely decreased G5 <15 Kidney failure *Relative to young adult level. In the absence of evidence of kidney damage, neither GFR category G1 nor G2 fulfill the criteria for CKD. The CKD-EPI equation is validated in individuals 18 years of age and older. Currently the best equation for estimating glomerular filtration rate (GFR) from serum creatinine in children is the Bedside Riddle equation. It is less accurate in patients with extremes of muscle mass, restriction of dietary protein, ingestion of creatine, extra-renal metabolism of creatinine, or treatment with medications that affect renal tubular creatinine secretion. GFR/1.73 sq M.predicted among blacks MDRD (S/P/Bld) [Vol rate/Area] 83.1 mL/min/{1.73_m2} >60 [facility] Glucose [Mass/Vol] 94 mg/dL 70 - 100 mg/dL [facility] Interpretation and review of laboratory results Abnormal [facility] Potassium [Moles/Vol] 4.3 mmol/L 3.5 - 5.1 mmol/L [facility] Sodium [Moles/Vol] 136 mmol/L 135 - 145 mmol/L [facility] Urea nitrogen (BldV) [Mass/Vol] 14 mg/dL 7 - 17 mg/dL [facility] Test Performed by [facility], [address] [place] [id number] [facility] CBC with Auto Differentialon 05-18-2021 Absolute Baso # 0.0 10*3/uL 0.0 - 0.2 10*3/uL [facility] Absolute Neut # 4.3 10*3/uL 1.8 - 7.0 10*3/uL [facility] Basophils/100 WBC (Bld) 0.4 % 0.0 - 2.0 % [facility] Eosinophils (Bld) [#/Vol] 0.2 10*3/uL 0.0 - 0.5 10*3/uL [facility] Eosinophils/100 WBC (Bld) 3.2 % 1.0 - 6.0 % [facility] Granulocytes/100 WBC (Bld) 68.5 % 40.0 - 80.0 % [facility] Hematocrit (Bld) [Volume fraction] 49.0 % 40.0 - 52.0 % [facility] Hemoglobin.gastrointes tinal spec 1 Ql (Stl) 16.0 g/dL 13.0 - 18.0 g/dL [facility] Interpretation and review of laboratory results Abnormal [facility] Lymphocytes (Bld) [#/Vol] 1.0 10*3/uL 1.0 - 4.3 10*3/uL [facility] Lymphocytes/100 WBC (Bld) 15.3 % Low 20.0 - 40.0 % [facility] MCH (RBC) [Entitic mass] 32.7 pg 26.0 - 34.0 pg [facility] MCHC (RBC) [Mass/Vol] 32.7 % 32.0 - 36.0 % [facility] MCV (RBC) [Entitic vol] 100.2 fL High 80.0 - 98.0 fL [facility] Monocytes (Bld) [#/Vol] 0.8 10*3/uL 0.0 - 0.8 10*3/uL [facility] Monocytes/100 WBC (Bld) 12.6 % High 2.0 - 10.0 % [facility] Platelet distribution width (Bld) [Ratio] 14.5 % 11.5 - 14.5 % [facility] Platelet mean volume (Bld) [Entitic vol] 8.8 fL 7.4 - 10.4 fL [facility] Platelets (Bld) [#/Vol] 137 10*3/uL Low 140 - 440 10*3/uL [facility] RBC (Bld) [#/Vol] 4.89 10*6/uL 4.40 - 5.9 0 10*6/uL [facility] WBC (Bld) [#/Vol] 6.3 10*3/uL 3.6 - 10.7 10*3/uL [facility] Test Performed by [id number] [place] [address] LAB [facility] Hemogram w/ Autodiffon 05-18 Abs Baso Cnt 0.0 10*3/uL Normal 0.0-0.2 [facility] Comment on above: Performed By: #### H JAMES SALGADO3 #### [address] Abs Neutrophile Cnt 4.3 10*3/uL Normal 1.8-7.0 [facility] Comment on above: Performed By: #### H DAMIAN BMP3 #### [address] Basophils/100 WBC (Bld) 0.4 % Normal 0.0-2.0 [facility] Comment on above: Performed By: #### H DAMIAN BMP3 #### [address] Eosinophils (Bld) [#/Vol] 0.2 10*3/uL Normal 0.0-0.5 [facility] Comment on above: Performed By: #### H DAMIAN BMP3 #### [address] Eosinophils/100 WBC (Bld) 3.2 % Normal 1.0-6.0 [facility] Comment on above: Performed By: #### H DAMIAN BMP3 #### [address] [address] [place], [place] Erythrocyte distribution width (RBC) [Ratio] 14.5 % Normal 11.5-14.5 [facility] Comment on above: Performed By: #### H DAMIAN BMP3 #### [address] [address] [place], [place] Granulocytes/100 WBC (Bld) 68.5 % Normal 40.0-80.0 [facility] Comment on above: Performed By: #### H DAMIAN BMP3 #### [address] [address] [place], [place] Hematocrit (Bld) [Volume fraction] 49.0 % Normal 40.0-52.0 [facility] Comment on above: Performed By: #### H DAMIAN BMP3 #### [address] [place], [place] Hemoglobin (Bld) [Mass/Vol] 16.0 g/dL Normal 13.0-18.0 [facility] Comment on above: Performed By: #### H DAMIAN BMP3 #### [address] [address] [place], [place] Lymphocytes (Bld) [#/Vol] 1.0 10*3/uL Normal 1.0-4.3 [facility] Comment on above: Performed By: #### H DAMIAN BMP3 #### [address] [address] [place], [place] Lymphocytes/100 WBC (Bld) 15.3 % Low 20.0-40.0 [facility] Comment on above: Performed By: #### H DAMIAN BMP3 #### [address] MCH (RBC) [Entitic mass] 32.7 pg Normal 26.0-34.0 [facility] Comment on above: Performed By: #### H EMDF, BMP3 #### [facility] [address] [place], [place] MCHC 32.7 % Normal 32.0-36.0 [facility] Comment on above: Performed By: #### H DAMIAN BMP3 #### [facility] [address] [place], [place] MCV (RBC) [Entitic vol] 100.2 fL High 80.0-98.0 [facility] Comment on above: Performed By: #### H DAMIAN, BMP3 #### [facility] [address] [place], [place] Monocytes (Bld) [#/Vol] 0.8 10*3/uL Normal 0.0-0.8 [facility] Comment on above: Performed By: #### H DAMIAN, BMP3 #### [address] [address] [place], [place] Monocytes/100 WBC (Bld) 12.6 % High 2.0-10.0 [facility] Comment on above: Performed By: #### H EMDEmperatriz, BMP3 #### [address] [place], [place] Platelet mean volume (Bld) [Entitic vol] 8.8 fL Normal 7.4-10.4 [facility] Comment on above: Performed By: #### H EMDF, BMP3 #### [address] [address] [place], [place] Platelets (Bld) [#/Vol] 137 10*3/uL Low 140-440 [facility] Comment on above: Performed By: #### H EMDF, BMP3 #### [facility] [address] [place], [place] RBC (Bld) [#/Vol] 4.89 10*6/uL Normal 4.40-5.90 [facility] Comment on above: Performed By: #### H EMDF, BMP3 #### [address] [address] 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 Ti Nielson MD - 05/18/2021 Patient Name: BEAR SHINE Diagnostic Radiology ACCESSION EXAM DATE/TIME PROCEDURE ORDERING PROVIDER [id number] 05/17/2021 09:44 EST CR Spine Cervical 2 or 3 MD NEGRON BLAKE Views CPT code 74652 Reason For Exam (CR Spine Cervical 2 [...] JEFFREY Transcribed Date and Time: 05/18/2021 5:25 [facility] Work Phone: [facility] Work Phone: Basic Metabolic Panelon 05-07 Anion gap [Moles/Vol] 8 mmol/L Normal 3-13 [facility] Comment on above: Performed By: #### H DAMIAN BMP3 ####[address] [place], [place] Calcium [Mass/Vol] 8.3 mg/dL Low 8.4-10.4 [facility] Comment on above: Performed By: #### H DAMIAN BMP3 ####[facility] [employer] [id number] [place], [place] CO2 [Moles/Vol] 28 mmol/L Normal 22-30 [facility] Comment on above: Performed By: #### H DAMIAN BMP3 ####[address] [place], [place] Glucose [Mass/Vol] 118 mg/dL High 70-100 [facility] Comment on above: Performed By: #### H DAMIAN, BMP3 ####[address] [place] [address] Urea nitrogen [Mass/Vol] 11 mg/dL Normal 7-17 [facility] Comment on above: Performed By: #### H ABNERF, BMP3 ####[address] [place] [address] Creatinine [Mass/Vol] 1.25 mg/dL Normal 0.52-1.25 [facility] Comment on above: Performed By: #### H ABNERF, BMP3 ####[address] [place] [address] GFR/1.73 sq M.predicted among blacks MDRD (S/P/Bld) [Vol rate/Area] 65.8 mL/min/{1.73_m2} Normal >60 [facility] Comment on above: Performed By: #### H DAMIAN BMP3 ####[address] [place] [address] GFR/1.73 sq M.predicted among non-blacks MDRD (S/P/Bld) [Vol rate/Area] 56.8 mL/min/{1.73_m2} Abnormal >60 [facility] Comment on above: Result Comment: KDIG O guidelines provide the following GFR categories: Stage GFR(ml/min/1.73 m2) Terms G1 >=90 Normal or high G2 60-89 Mildly decreased* G3a 45-59 Mildly to moderately decreased G3b 30-44 Moderately to severely decreased G4 15-29 Severely decreased G5 <15 Kidney failure *Relative to young adult level. In the absence of evidence of kidney damage, neither GFR category G1 nor G2 fulfill the criteria for CKD. The CKD-EPI equation is validated in individuals 18 years of age and older. Currently the best equation for estimating glomerular filtration rate (GFR) from serum creatinine in children is the Bedside Riddle equation. It is less accurate in patients with extremes of muscle mass, restriction of dietary protein, ingestion of creatine, extra-renal metabolism of creatinine, or treatment with medications that affect renal tubular creatinine secretion. Performed By: #### H DAMIAN, BMP3 ####[facility] [place], [place] Potassium [Moles/Vol] 4.6 mmol/L Normal 3.5-5.1 [facility] Comment on above: Result Comment: Mode rately hemolysed, interpret with caution. Performed By: #### H EMDF, BMP3 ####[facility] [place], [place] Sodium [Moles/Vol] 139 mmol/L Normal 135-145 [facility] Comment on above: Performed By: #### H EMDF, BMP3 ####[address] [place], [place] Chloride [Moles/Vol] 103 mmol/L Normal 98-107 [facility] Comment on above: Performed By: #### H EMDF, BMP3 ####[address] [place], [place] Anion gap [Moles/Vol] 8 mmol/L 3 - 13 mmol/L [facility] Calcium [Mass/Vol] 8.3 mg/dL Low 8.4 - 10. 4 mg/dL [facility] Chloride [Moles/Vol] 103 mmol/L 98 - 10 7 mmol/L [facility] CO2 [Moles/Vol] 28 mmol/L 22 - 30 mmol/L [facility] Creatinine [Mass/Vol] 1.25 mg/dL 0.52 - 1.25 mg/dL [facility] EGFR IF NonAfrican [place] 56.8 mL/min Abnormal >60 [facility] Comment on above: KDIGO guidelines pro vide the following GFR categories: Stage GFR(ml/min/1.73 m2) Terms G1 >=90 Normal or high G2 60-89 Mildly decreased* G3a 45-59 Mildly to moderately decreased G3b 30-44 Moderately to severely decreased G4 15-29 Severely decreased G5 <15 Kidney failure *Relative to young adult level. In the absence of evidence of kidney damage, neither GFR category G1 nor G2 fulfill the criteria for CKD. The CKD-EPI equation is validated in individuals 18 years of age and older. Currently the best equation for estimating glomerular filtration rate (GFR) from serum creatinine in children is the Bedside Riddle equation. It is less accurate in patients with extremes of muscle mass, restriction of dietary protein, ingestion of creatine, extra-renal metabolism of creatinine, or treatment with medications that affect renal tubular creatinine secretion. GFR/1.73 sq M.predicted among blacks MDRD (S/P/Bld) [Vol rate/Area] 65.8 mL/min/{1.73_m2} >60 [facility] Glucose [Mass/Vol] 118 mg/dL High 70 - 100 mg/dL [facility] Interpretation and review of laboratory results Abnormal [facility] Potassium [Moles/Vol] 4.6 mmol/L 3.5 - 5.1 mmol/L [facility] Comment on above: Moderately hemolysed , interpret with caution. Sodium [Moles/Vol] 139 mmol/L 135 - 145 mmol/L [facility] Urea nitrogen (BldV) [Mass/Vol] 11 mg/dL 7 - 17 mg/dL [facility] Test Performed by [facility], [address] [place] [id number] [place] [address] LAB [facility] CBC with Auto Differentialon 05-17-2021 Absolute Baso # 0.0 10*3/uL 0.0 - 0.2 10*3/uL [facility] Absolute Neut # 7.0 10*3/uL 1.8 - 7.0 10*3/uL [facility] Basophils/100 WBC (Bld) 0.4 % 0.0 - 2.0 % [facility] Eosinophils (Bld) [#/Vol] 0.1 10*3/uL 0.0 - 0.5 10*3/uL [facility] Eosinophils/100 WBC (Bld) 1.3 % 1.0 - 6.0 % [facility] Granulocytes/100 WBC (Bld) 78.1 % 40.0 - 80.0 % [facility] Hematocrit (Bld) [Volume fraction] 50.4 % 40.0 - 52.0 % [facility] Hemoglobin.gastrointes tinal spec 1 Ql (Stl) 16.4 g/dL 13.0 - 18.0 g/dL [facility] Interpretation and review of laboratory results Abnormal [facility] Lymphocytes (Bld) [#/Vol] 0.9 10*3/uL Low 1.0 - 4.3 10*3/uL [facility] Lymphocytes/100 WBC (Bld) 9.4 % Low 20.0 - 40.0 % [facility] MCH (RBC) [Entitic mass] 32.2 pg 26.0 - 34.0 pg [facility] MCHC (RBC) [Mass/Vol] 32.5 % 32.0 - 36.0 % [facility] MCV (RBC) [Entitic vol] 99.1 fL High 80.0 - 98.0 fL [facility] Monocytes (Bld) [#/Vol] 1.0 10*3/uL High 0.0 - 0.8 10*3/uL [facility] Monocytes/100 WBC (Bld) 10.8 % High 2.0 - 10.0 % [facility] Platelet distribution width (Bld) [Ratio] 14.3 % 11.5 - 14.5 % [facility] Platelet mean volume (Bld) [Entitic vol] 9.3 fL 7.4 - 10.4 fL [facility] Platelets (Bld) [#/Vol] 135 10*3/uL Low 140 - 440 10*3/uL [facility] RBC (Bld) [#/Vol] 5.08 10*6/uL 4.40 - 5.9 0 10*6/uL [facility] WBC (Bld) [#/Vol] 9.0 10*3/uL 3.6 - 10.7 10*3/uL [facility] Test Performed by [address] LAB [facility] CR Pelvis 1 or 2 Viewson CR Pelvis 1 or 2 Views Patient Name: BEAR PHAN Diagnostic Radiology ACCESSION EXAM DATE/TIME PROCEDURE ORDERING PROVIDER [id number] 05/17/2021 00:31 EST CR Pelvis 1 or 2 Views [id number] -MIGUEL ANGEL RAMIREZ CPT code 77964 Reason For Exam (CR Pelvis 1 or [...] No acute bony abnormality. Report Dictated on Final Dictated: 05/17/2021 1:46 am Dictating Physician: MD NIELSON JEFFREY Signed Date and Time: 05/17/2021 1:47 am Signed by: MD NIELSON JEFFREY Transcribed Date and Time: 05/17/2021 1:46 Normal [facility] CR Shoulder 1 View Lefton CR Shoulder 1 View Left Patient Name: BEAR SHINE Diagnostic Radiology ACCESSION EXAM DATE/TIME PROCEDURE ORDERING PROVIDER [id number] 05/17/2021 02:25 EST CR Shoulder 1 View Left MD NEGRON BLAKE CPT code 60342 Reason For Exam (CR Shoulder 1 View [...] definite fracture or dislocation. Report Dictated on Final Dictated: 05/17/2021 3:51 am Dictating Physician: MD NIELOSN JEFFREY Signed Date and Time: 05/17/2021 3:53 am Signed by: MD NIELSON JEFFREY Transcribed Date and Time: 05/17/2021 3:51 Normal [facility] CR Spine Cervical 2 or 3 Vie wson 05-17-2021 CR Spine Cervical 2 or 3 Views Patient Name: BEAR SHINE Diagnostic Radiology ACCESSION EXAM DATE/TIME PROCEDURE ORDERING PROVIDER [id number] 05/17/2021 09:44 EST CR Spine Cervical 2 or 3 MD NEGRON BLAKE Views CPT code 61198 Reason For Exam (CR Spine Cervical 2 [...] and disc space narrowing. 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 No earlier than 04:[address] HEAD: CLINICAL INDICATION: Trauma with known C1 fracture with previous images from [facility] TECHNIQUE: Transaxial CT sequence performed through the [...] JEFFREY Transcribed Date and Time: 05/17/2021 6:18 [facility] Ti Nielson MD - 05/17/2021 Patient Name: BEAR SHINE Computed Tomography ACCESSION EXAM DATE/TIME PROCEDURE ORDERING PROVIDER [id number] 05/17/2021 05:[address] Head or Brain w/o [id number] -PIA, MIGUEL ANGEL Contrast CPT code 24901 Reason For Exam (CT Head or Brain w/o Contrast) repeat CT head, fall on blood thinners, forehead abrasion, known C1 fx. No earlier than 04:[address] HEAD: CLINICAL INDICATION: Trauma with known C1 fracture with previous images from [facility] TECHNIQUE: Transaxial CT sequence performed through the [...] JEFFREY Transcribed Date and Time: 05/17/2021 6:18 [facility] Work Phone: [facility] Work Phone: CT Head or Brain w/o Contras ton 05-17-2021 CT Head or Brain w/o Contrast Patient Name: BEAR SHINE [facility]#: [id number] Computed Tomography ACCESSION EXAM DATE/TIME PROCEDURE ORDERING PROVIDER [id number] 05/17/2021 05:[address] Head or Brain w/o [id number] -PIA, MIGUEL ANGEL Contrast CPT code 25634 Reason For Exam (CT Head or Brain w/o Contrast) repeat CT head, fall on blood thinners, forehead abrasion, known C1 fx. No earlier than 04:[address] HEAD: CLINICAL INDICATION: Trauma with known C1 fracture with previous images from [facility] TECHNIQUE: Transaxial CT sequence performed through the [...] left. 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 Ti Nielson MD - 05/17/2021 Patient Name: BEAR SHINE Computed Tomography ACCESSION EXAM DATE/TIME PROCEDURE ORDERING PROVIDER [id number] 05/17/2021 05:[address] Spine Lumbar w/o MD NEGRON BLAKE Contrast CPT code 26588 Reason For Exam (CT Spine Lumbar w/o [...] JEFFREY Transcribed Date and Time: 05/17/2021 6:36 [facility] Work Phone: [facility] Work Phone: CT Spine Lumbar w/o Contrast on 05-17-2021 CT Spine Lumbar w/o Contrast Patient Name: BEAR SHINE [facility]#: [id number] Computed Tomography ACCESSION EXAM DATE/TIME PROCEDURE ORDERING PROVIDER [id number] 05/17/2021 05:[address] Spine Lumbar w/o MD JAMIL, NERISSA Contrast CPT code 97875 Reason For Exam (CT Spine Lumbar w/o [...] L4-L5 Computed Tomography Report Report Dictated on Final Dictated: 05/17/2021 6:36 am Dictating Physician: MD NIELSON JEFFREY Signed Date and Time: 05/17/2021 6:42 am Signed by: MD NIELSON JEFFREY Transcribed Date and Time: 05/17/2021 6:36 Normal [facility] CT Spine Thoracic w/o Contra aleidan 05-17-2021 CT Spine Thoracic w/o Contrast Patient Name: BEAR SHINE [facility]#: [id number] Computed Tomography ACCESSION EXAM DATE/TIME PROCEDURE ORDERING PROVIDER [id number] 05/17/2021 05:[address] Spine Thoracic w/o MD NEGRON BLAKE Contrast CPT code 28899 Reason For Exam (CT Spine Thoracic w/o [...] L4-L5 Computed Tomography Report Report Dictated on Final Dictated: 05/17/2021 6:36 am Dictating Physician: MD NIELSON JEFFREY Signed Date and Time: 05/17/2021 6:42 am Signed by: MD NIELSON JEFFREY Transcribed Date and Time: 05/17/2021 6:36 Normal [facility] CT THORACIC SPINE WO ELIDA Serrato 05-17-2021 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 [facility]#: [id number] Computed Tomography ACCESSION EXAM DATE/TIME PROCEDURE ORDERING PROVIDER [id number] 05/17/2021 05:31 EST CTA Neck w/ + w/o MD JAMIL, NERISSA Contrast CPT code 38700 Q9967 Reason For Exam (CTA Neck w/ + w/o Contrast) C1 Fracture Report CT ANGIOGRAPHY NECK: CLINICAL INDICATION: Trauma with known C1 fracture with previous images from [facility] TECHNIQUE: Multidetector spiral transaxial sequence was performed from the upper mediastinum through the skull base during dynamic intravenous infusion of 75 mL of nonionic contrast media, injected at a high flow rate following a university president study. Images were reconstructed with soft tissue [...] JEFFREY Transcribed Date and Time: 05/17/2021 6:22 [facility] Ti Nielson MD - 05/17/2021 Patient Name: BEAR SHINE [facility]#: [id number] Computed Tomography ACCESSION EXAM DATE/TIME PROCEDURE ORDERING PROVIDER [id number] 05/17/2021 05:31 EST CTA Neck w/ + w/o MD JAMIL, NERISSA Contrast CPT code 70771 Q9967 Reason For Exam (CTA Neck w/ + w/o Contrast) C1 Fracture Report CT ANGIOGRAPHY NECK: CLINICAL INDICATION: Trauma with known C1 fracture with previous images from [facility] TECHNIQUE: Multidetector spiral transaxial sequence was performed from the upper mediastinum through the skull base during dynamic intravenous infusion of 75 mL of nonionic contrast media, injected at a high flow rate following a university president study. Images were reconstructed with soft tissue [...] JEFFREY Transcribed Date and Time: 05/17/2021 6:22 [facility] Work Phone: [facility] Work Phone: CTA Neck w/ + w/o Contraston 05-17-2021 CTA Neck w/ + w/o Contrast Patient Name: BEAR SHINE [facility]#: [id number] Computed Tomography ACCESSION EXAM DATE/TIME PROCEDURE ORDERING PROVIDER [id number] 05/17/2021 05:31 EST CTA Neck w/ + w/o MD JAMIL, NERISSA Contrast CPT code 07288 Q9967 Reason For Exam (CTA Neck w/ + w/o Contrast) C1 Fracture Report CT ANGIOGRAPHY NECK: CLINICAL INDICATION: Trauma with known C1 fracture with previous images from [facility] TECHNIQUE: Multidetector spiral transaxial sequence was performed from the upper mediastinum through the skull base during dynamic intravenous infusion of 75 mL of nonionic contrast media, injected at a high flow rate following a university president study. Images were reconstructed with soft tissue [...] No intracranial arterial abnormality. Report Dictated on Final Dictated: 05/17/2021 6:22 am Dictating Physician: MD NIELSON JEFFREY Signed Date and Time: 05/17/2021 6:35 am Signed by: MD NIELSON JEFFREY Transcribed Date and Time: 05/17/2021 6:22 Normal [facility] Hemogram w/ Autodiffon 05-17 Abs Baso Cnt 0.0 10*3/uL Normal 0.0-0.[address] [facility] Comment on above: Performed By: #### H JAMES SALGADO3 ####[address] [place] [address] Abs Neutrophile Cnt 7.0 10*3/uL Normal 1.8-7.0 [facility] Comment on above: Performed By: #### H DAMIAN BMP3 ####[address] Basophils/100 WBC (Bld) 0.4 % Normal 0.0-2.0 [facility] Comment on above: Performed By: #### H DAMIAN BMP3 ####[address] Eosinophils (Bld) [#/Vol] 0.1 10*3/uL Normal 0.0-0.5 [facility] Comment on above: Performed By: #### H DAMIAN BMP3 ####[address] Eosinophils/100 WBC (Bld) 1.3 % Normal 1.0-6.0 [facility] Comment on above: Performed By: #### H DAMIAN BMP3 ####[address] Erythrocyte distribution width (RBC) [Ratio] 14.3 % Normal 11.5-14.5 [facility] Comment on above: Performed By: #### H DAMIAN BMP3 ####[address] Granulocytes/100 WBC (Bld) 78.1 % Normal 40.0-80.0 [facility] Comment on above: Performed By: #### H DAMIAN BMP3 ####[address] Hematocrit (Bld) [Volume fraction] 50.4 % Normal 40.0-52.0 [facility] Comment on above: Performed By: #### H DAMIAN BMP3 ####[address] Hemoglobin (Bld) [Mass/Vol] 16.4 g/dL Normal 13.0-18.0 [facility] Comment on above: Performed By: #### H DAMIAN BMP3 ####[address] Lymphocytes (Bld) [#/Vol] 0.9 10*3/uL Low 1.0-4.3 [facility] Comment on above: Performed By: #### H DAMIAN BMP3 ####[address] [place], [place] Lymphocytes/100 WBC (Bld) 9.4 % Low 20.0-40.0 [facility] Comment on above: Performed By: #### H DAMIAN BMP3 ####[address] MCH (RBC) [Entitic mass] 32.2 pg Normal 26.0-34.0 [facility] Comment on above: Performed By: #### H DAMIAN BMP3 ####[address] MCHC 32.5 % Normal 32.0-36.0 [facility] Comment on above: Performed By: #### H DAMIAN BMP3 ####[address] MCV (RBC) [Entitic vol] 99.1 fL High 80.0-98.0 [facility] Comment on above: Performed By: #### H DAMIAN BMP3 ####[address] Monocytes (Bld) [#/Vol] 1.0 10*3/uL High 0.0-0.8 [facility] Comment on above: Performed By: #### H DAMIAN BMP3 ####[address] Monocytes/100 WBC (Bld) 10.8 % High 2.0-10.0 [facility] Comment on above: Performed By: #### H DAMIAN BMP3 ####[address] Platelet mean volume (Bld) [Entitic vol] 9.3 fL Normal 7.4-10.4 [facility] Comment on above: Performed By: #### H DAMIAN BMP3 ####[facility] [employer] [id number] [place], [place] Platelets (Bld) [#/Vol] 135 10*3/uL Low 140-440 [facility] Comment on above: Performed By: #### H EMDF, BMP3 ####[facility] [place], [place] RBC (Bld) [#/Vol] 5.08 10*6/uL Normal 4.40-5.90 [facility] Comment on above: Performed By: #### H EMDF, BMP3 ####[address] [place], [place] WBC (Bld) [#/Vol] 9.0 10*3/uL Normal 3.6-10.7 [facility] Comment on above: Performed By: #### H EMDF, BMP3 ####[facility] [employer] [address] No Panel Informationon 05-17 Radiology Study observation (narrative) [facility] Work Phone: Radiology Study observation (narrative) [facility] Work Phone: Phenobarbitalon 05-17-2021 PHENobarbital [Mass/Vol] 28.1 ug/mL Normal 10.0-40.0 [facility] Comment on above: Performed By: #### V D25H #### [facility] [address] [place] [address] #### PHNO3, TSH5, B12 #### [address] Phenobarbital Levelon 2021 PHENobarbital [Mass/Vol] 28.1 ug/mL 10.0 - 40.0 ug/mL [facility] Test Performed by [id number] [place] [address] [facility] TSHon 05-17-2021 TSH Qn 1.400 u[IU]/mL 0.465 - 4.680 u[IU]/mL [facility] Test Performed by [address] [address] [facility] Thyroid Stim. Hormoneon 05-07 Thyroid Stim. Hormone 1.400 u[IU]/mL Normal 0.465-4.68 0 [facility] Comment on above: Performed By: #### V D25H #### [facility] [address] [place] [address] #### PHNO3, TSH5, B12 #### [address] [address] Vit D 25-OH, Totalon 022 Vit D 25-OH, Total 45 ng/mL Normal 30-100 [facility] Comment on above: Result Comment: Ther apy is based on measurement of Total 25- OHD with the following classification levels: Less than 20 ng/mL: Indicative of Vit D deficiency 20-30 ng/mL: Suggests Vit D insufficiency Optimal: Greater than or equal to 30 ng/mL Test performed by [employer], measuring Total Vitamin D, not individual fractions. Performed By: #### V D25H #### [facility] [address] [place] [address] #### PHNO3, TSH5, B12 #### [address] [address] Vitamin B12on 05-17-2021 Cobalamin (Vitamin B12) [Mass/Vol] 674 pg/mL Normal 239-931 [facility] Comment on above: Performed By: #### V D25H #### [facility] [address] [place] [address] #### PHNO3, TSH5, B12 #### [address] [address] Cobalamin (Vitamin B12) [Mass/Vol] 674 pg/mL 239 - 931 pg/mL [facility] Test Performed by [facility], [address] [place] [address] [facility] Vitamin D 25 Hydroxyon 05-17 Vit D, 25-Hydroxy 45 ng/mL 30 - 100 ng/mL [facility] Comment on above: Therapy is based on measurement of Total 25-OHD with the following classification levels: Less than 20 ng/mL: Indicative of Vit D deficiency 20-30 ng/mL: Suggests Vit D insufficiency Optimal: Greater than or equal to 30 ng/mL Test performed by [employer] Competitive Immuno[employer], measuring Total Vitamin D, not individual fractions. Test Performed by [facility], [address] 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 [facility]#: [id number] Diagnostic Radiology ACCESSION EXAM DATE/TIME PROCEDURE ORDERING PROVIDER [id number] 05/17/2021 02:25 EST CR Shoulder 1 View Left MD NEGRON BLAKE CPT code 61722 Reason For Exam (CR Shoulder 1 View [...] JEFFREY Transcribed Date and Time: 05/17/2021 3:51 [facility] Ti Nielson MD - 05/17/2021 Patient Name: BEAR SHINE [facility]#: [id number] Diagnostic Radiology ACCESSION EXAM DATE/TIME PROCEDURE ORDERING PROVIDER [id number] 05/17/2021 02:25 EST CR Shoulder 1 View Left MD NEGRON BLAKE CPT code 25841 Reason For Exam (CR Shoulder 1 View [...] JEFFREY Transcribed Date and Time: 05/17/2021 3:51 [facility] Work Phone: [facility] Work Phone: Absolute lymphocyte counton 05-16-2021 Lymphocytes Auto (Unsp spec) [#/Vol] 0.82 10*3/uL 0.83-4.51 [facility] Work Phone: Basophil percentageon 2021 Lactate [Moles/Vol] 0.9 mmol/L 0.4-2.[address] [facility] Work Phone: Basophils/100 WBC (Bld) 0.7 % 0-1 [facility] Work Phone: Bilirubin [Mass/Vol] 0.40 mg/dL 0.20-1.00 [facility] Work Phone: Comment on above: For patients on eltr ombopag therapy, use of Dimension [place] TBIL is not recommended. Chloride [Moles/Vol] 105 mmol/L 98-107 [facility] Work Phone: Eosinophils/100 WBC (Bld) 1.4 % 0-5 [facility] Work Phone: Glucose [Mass/Vol] 123 mg/dL 74-106 [facility] Work Phone: Comment on above: Fasting Glucose resu lt from 100 to 125 mg/dL suggests IMPAIRED HOMEOSTASIS per A.D.A. criteria. Neutrophils (Bld) [#/Vol] 9.0 10*3/uL 2.0-7.7 [facility] Work Phone: Neutrophils/100 WBC (Bld) 79.3 % 47-70 [facility] Work Phone: Potassium [Moles/Vol] 3.9 mmol/L 3.5-5.1 [facility] Work Phone: Protein [Mass/Vol] 7.8 g/dL 6.4-8.2 [facility] Work Phone: Sodium [Moles/Vol] 139 mmol/L 136-145 [facility] Work Phone: WBC (Bld) [#/Vol] 11.3 10*3/uL 4.4-11.[address] [facility] Work Phone: Blood erythrocytes count (nu mber/volume)on 05-16-2021 RBC (Bld) [#/Vol] 5.39 10*6/uL 4.6-6.[address] [facility] Work Phone: Blood hemoglobin measurement (mass/volume)on 05-16-2021 Hemoglobin (Bld) [Mass/Vol] 17.7 g/dL 13.0-16.5 [facility] Work Phone: Blood lymphocytes/100 leukoc yteson 05-16-2021 Lymphocytes/100 WBC (Bld) 7.2 % 19-41 [facility] Work Phone: Blood monocytes/100 leukocyt eson 05-16-2021 Monocytes/100 WBC (Bld) 10.5 % 0-10 [facility] Work Phone: Blood platelet mean volumeon 05-16-2021 Platelet mean volume (Bld) [Entitic vol] 10.8 fL 6.2-12.0 [facility] Work Phone: Determination of erythrocyte mean corpuscular volume (MCV)on 05-16-2021 MCV (RBC) [Entitic vol] 100.7 fL 80-94 [facility] Work Phone: Hematocrit Auto (Bld) [Volum e fraction]on 05-16-2021 Hematocrit (Bld) [Volume fraction] 54.3 % 40-54 [facility] Work Phone: INR in Blood by Coagulation assayon 05-16-2021 INR Coag (Bld) [Relative time] 1.1 {INR} [facility] Work Phone: Laboratory - Chemistry and C hemistry - challengeon 05-16-2021 ALP [Catalytic activity/Vol] 103 U/L 45-117 [facility] Work Phone: ALT [Catalytic activity/Vol] 26 U/L 16-61 [facility] Work Phone: CO2 [Moles/Vol] 28.0 mmol/L 21.0-32.0 [facility] Work Phone: Globulin (S) [Mass/Vol] 4.0 g/dL 2.2-4.2 [facility] Work Phone: Urea nitrogen/Creatinine [Mass ratio] 7.3 mg/mg 10-20 [facility] Work Phone: Laboratory - Coagulationon 0 05-16-2021 aPTT Coag (Bld) [Time] 29.4 s 24.1-36.2 [facility] Work Phone: PT Coag (PPP) [Time] 13.8 s 11.7-14.9 [facility] Work Phone: Laboratory - Hematology and Cell countson 05-16-2021 Erythrocyte distribution width (RBC) [Entitic vol] 49.9 fL 35.1-43.9 [facility] Work Phone: Erythrocyte distribution width (RBC) [Ratio] 13.2 % 11.6-14.6 [facility] Work Phone: Immature granulocytes/100 WBC (Bld) 0.900 % 0.0-0.9 [facility] Work Phone: Comment on above: IG% - Immature Granu locytes (promyelocytes, myelocytes and metamyelocytes) > 1% indicates that a LEFT SHIFT is Present. MCH (RBC) [Entitic mass] 32.8 pg 27.0-32.0 [facility] Work Phone: Nucleated RBC/100 WBC (Bld) [Ratio] 0 % 0-5 [facility] Work Phone: Laboratory - Microbiology an d Antimicrobial susceptibilityon 05-16-2021 Bacteria identified Cx Nom (Bld) No growth in 5 days. [facility] Work Phone: MCHC Auto (RBC) [Mass/Vol]on 05-16-2021 MCHC (RBC) [Mass/Vol] 32.6 g/dL 32-36 [facility] [place] Work Phone: No Panel Informationon 05-16 Estimated Creatinine Clearance Calc 44.99 ml/min [facility] Work Phone: Estimated GFR (MDRD) Amer 59 mL/min >60 [facility] Work Phone: Comment on above: GFR Calc Estimated GFR (MDRD) Non-Af Amer 48 mL/min >60 [facility] Work Phone: Comment on above: Non- GFR Calc Troponin I High Sensitivity 10 pg/mL 3.0-78.0 [facility] Work Phone: Comment on above: Please Note: New [place] t Units and Gender Specific Reference Ranges. For more information see Policy Stat Procedure [place] High Sensitivity Troponin (TNIH) and attachments. Platelets bldon 05-16-2021 Platelets (Bld) [#/Vol] 158 10*3/uL 150-450 [facility] Work Phone: Serum or plasma albumin libra urement (mass/volume)on 05-16-2021 Albumin [Mass/Vol] 3.8 g/dL 3.2-5.0 [facility] Work Phone: Serum or plasma albumin/glob ulin mass ratioon 05-16-2021 Albumin/Globulin [Mass ratio] 1.0 {ratio} 0.9-2.4 [facility] Work Phone: Serum or plasma calcium libra urement (mass/volume)on 05-16-2021 Calcium [Mass/Vol] 8.7 mg/dL 8.5-10.1 [facility] Work Phone: Serum or plasma creatinine m easurement (mass/volume)on 05-16-2021 Creatinine [Mass/Vol] 1.51 mg/dL 0.70-1.30 [facility] Work Phone: Comment on above: The validity of the calculated GFR & GFRAA in patients over 70 years has not been determined. Clinical correlation is essential. Serum or plasma urea nitroge n measurement (mass/volume)on 05-16-2021 Urea nitrogen [Mass/Vol] 11 mg/dL 7-18 [facility] Work Phone: Thin prep Papanicolaou smear with manual screeningon 05-16-2021 Thin prep Papanicolaou smear with manual screening 16 U/L 15-37 [facility] Work Phone: Thin prep Papanicolaou smear with manual screening 6 5-15 [facility] Work Phone: Daily Progress Note - Psychi atryon 06-09-2019 Daily Progress Note - Psychiatry Subjective Data: BEAR SHINE is a 69 year old Male who is Hospital Day # 9. Pt was awake, sitting up oob in the room eating lunch and sitter at bedside changing linens and making the bed. Pt reports feeling Ok today but reports 8/10 back pain. Pt said he has two bulging discs and a pinched nerve and said he has hot pads stuck to my back. Pt denies SI/HI/AVH and he denies anxiety and depression. Pt denies issues with psych meds. Pt thought the date was September 09, 2019 but was able to correct with prompting. Pt reports his appetite is good and he denies bladder/bowel movement issues and reports his last BM was earlier today. When asked about sleep, the pt chuckles and replies, ok, when they leave me alone. Pt said since restarting Prazosin it has helped quite a bit with the intensity of his nightmares and has caused his nightmares to decrease. Pt said he still has flashbacks that occur mostly at night, although they can occur sometimes during the day. Pt said when he hears a door slam, he jokes that he is ready to eat dirt b/c it startles him severely. Pt reports staff and treatment teams are treating him pretty good and isn't sure why he was admitted to and then says he's unsure why [facility] couldn't manage his seizures. Pt also wonders why he's waiting so long to transfer back to the [facility] and hopes he will leave today. Objective: Objective Information: T PRBPSpO2 [id number]/7695% Date/Time06/07 21: 21: 21: 21: 21:28 Range(36.1C - 36.6C ) (54 - 62 ) (18 - 18 ) (121 - 126 )/ (71 - 76 ) (95% - 96% ) As of 08-Jun-2019 21:28:00, patient is on 1 L/min of oxygen via nasal cannula. Pain reported at 06/08 3:00: 2 = Mild ---- Intake and Output ----- [facility] Jun 08, [facility] 10:00 [id number] Jun 08, 2019 2:00 [id number] The Intake and Output Totals for the last 24 hours are: IntakeOutputNet [id number] ---Intake--- Enteral - Oral PO Fluid/Feed (oral): 1330 mL ---Output--- Urine Voided (mL): 1150 mL Intake Output Enteral - Oral 1330 mL Urine 1150 mL Mental Status Exam: General: Overweight, elderly, white male, appears stated age, good hygiene Appearance: Short, jacobs/white hair, blue eyes, sitting up oob eating lunch, wearing silver rimmed glasses, hospital attire, and large silver watch on left wrist. Attitude: Pleasant and Cooperative; Fair eye contact Behavior: Calm, In-Control, Non-Threatening Motor Activity: No PMR, PMA or TD/EPS noted; Gait was not assessed Speech: Garbled at times d/t dentition, minimally spontaneous, fluent, with normal r/r/t/v Mood: Ok Affect: Appropriate and Pleasant; Occasionally joking Thought Process: Mild confusion, otherwise goal directed; Associations are mostly logical Thought Content: Denies Ideations; Denies paranoid delusions Thought Perception: Denies AVH; Pt doesn't appear internally stimulated Cognition: Alert, oriented x 3-4/4 (Pt knows Name, partial Date -with prompting, Location, Situation- i.e. seizures ) -- Minimal deficits noted. Adequate fund of knowledge. No deficit in recent and remote memory. No deficits in attention, concentration or language. Insight: Fair Judgment: Fair Medications: Continuous Medications ------- No continuous medications are active Scheduled Medications ------- 1. Clopidogrel: 75 mg Oral Daily 2. Dexamethasone -Neomycin -Polymyxin Ophthalmic: 0.5 inch(es) Both Eyes Every 8 Hours 3. Docusate 50 mg - Senna 8.6 m tablet(s) Oral At Bedtime 4. Enoxaparin SubCutaneous: 40 mg SubCutaneous Every 24 Hours 5. Erythromycin 0.5% Ophthalmic: 0.5 inch(es) Both Eyes Every 24 Hours 6. Isosorbide Mononitrate Extended Release: 30 mg Oral Daily 7. Latanoprost 0.005% Ophthalmic: 1 drop(s) Both Eyes At Bedtime 8. Lidocaine 5% TransDermal: 1 patch TransDermal Every 24 Hours 9. Nicotine 21 mg/ 24 hour TransDermal: 1 patch TransDermal Every 24 Hours 10. Olopatadine 0.1% Ophthalmic: 1 drop(s) Both Eyes 2 Times a Day 11. PHENobarbital: 97.2 mg Oral 2 Times a Day 12. Prazosin: 1 mg Oral At Bedtime 13. Sertraline: 100 mg Oral Daily 14. Simvastatin: 20 mg Oral At Bedtime PRN Medications ------- 1. diphenhydrAMINE: 25 mg Oral Every 6 Hours 2. LORazepam Injectable: 2 mg IntraVenous Push Once 3. oxyCODONE Extended Release: 10 mg Oral Every 12 Hours 4. Polyethylene Glycol: 17 gram(s) Oral Daily Assessment and Plan: Assessment: Mr. 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 in [place] d/t possible seizure like episodes and further workup. Pt originally went to [facility] with thoughts of suicidal ideation and was then transferred to the [facility] for inpatient psychiatric admission. The pt was on the inpatient psych unit for approximately 4 days when there was concern for possible seizure like episode, thus neurology was consulted and it was recommended the pt transfer to [facility] for further workup, vEEG. From psych CL understanding, the pt is to return to inpatient psychiatry upon completion of neurological workup. The pt has significant PTSD symptoms which makes him a higher risk for suicide, and although he's not actively having acute suicidal thoughts, the pt admits that he was suicidal four days ago, and the plan is for the into rectum to return to the [facility] inpatient psychiatric unit. Psychiatry CL will follow until pt is transferred back to [facility] and it's pertinent to continue 1:1 sitter and suicide precautions. As of 06/08, pt reports feeling well and stable, and reports improvement with nightmares upon restarting Prazosin. Pt eager to return to [facility] to and arrange psych f/u and arrange [employer] ([employer]) supports and assistance. Pt is medically cleared and waiting for transfer to [facility] inpatient psych. Pt denies SI/HI/AVH. IMPRESSION: MDD, Recurrent, Severe, without Psychotic Features PTSD Tobacco Use Disorder, Moderate, In a Controlled Environment Seizure Disorder TBI RECS: --Continue 1:1 Sitter with suicide precautions --Pt is to return to [facility] to inpatient psychiatry, where he was admitted prior to medical transfer --Pt MUST remain in hospital attire but please remove/secure personal belongings from the room; cell phone= OK --Pt LACKS CAPACITY and CANNOT LEAVE AMA; If pt attempts to elope, please call Karina Bray --PRN Code Kwaku for Agitated, Threatening, and Non-Redirectable behaviors --No EKG could be found in the chart --Continue scheduled Prazosin 1mg by mouth every evening at bedtime --Continue scheduled Zoloft 100mg by mouth daily --Continue scheduled NRT TD daily Patch for Nicotine cravings --Valium has been tapered off --Non-Pharmacological Management: Please try to reinforce sleep hygiene protocol of: encouraging patient to try to stay awake as much as possible during the day to improve sleep hygiene. Also allow natural light during the day with curtains/blinds open during the day, frequent orientation and attempts to soothing music (from [employer]) etc... to encourage normal sleep/wake cycle --Pt f/u with outpatient psychiatrist, Dr. Manzanares, in [place], [place] --Psychiatry will follow daily; Page [phone] with questions Medication Consent: Medication Consent: NA; consult service. Signature/Cosignature/Att estation: Note Completion: Provider/Team Pager #[phone] Electronic Signatures: Lexie Neal (OLEOMARGARINE MAKER[employer]ING MECHANIC) (Signed 09-Jun-2019 13:33) Authored: Subjective Data, Objective, Assessment and Plan, Medication Consent, Signature/Cosignature/Att estation Last Updated: 09-Jun-2019 13:33 by Lexie Neal (OLEOMARGARINE MAKER-FRAMING MECHANIC) Normal [facility] Daily Progress Note-Epilepsy on 06-09-2019 Daily Progress Note-Epilepsy Service: Epilepsy Subjective Data: BEAR SHINE is a 69 year old Male who is Hospital Day # 9. No acute events overnight. Patient says he is in a good mood and looking forward to going back to [facility], and to going home. Objective Data: Objective Information: T PRBPSpO2 [id number]/7695% Date/Time06/07 21:284 21:284 21:284 21:284 21:28 Range(36C - 36.6C ) (54 - 62 ) (18 - 18 ) (111 - 126 )/ (68 - 76 ) (95% - 97% ) As of 08-Jun-2019 21:28:00, patient is on 1 L/min of oxygen via nasal cannula. Pain reported at 06/08 3:00: 2 = Mild Physical Exam: Constitutional: Resting in bed in NAD Neurological: Awake, alert, oriented to self, thinks date is 06/08/2019 (1 day off, but correctly reads 06/07 from the wall which is erroneously not yet updated for the day), oriented to place. no language deficits noted. VFF today. PER, EOMI full range no nystagmus noted. Face symmetric, can bury eyelids, smile symmetric. Moving all extremities equally and AG with no drift x4. Today on F2N there is bilateral intention tremor noted, left > right. Medication: Medications: CARDIOVASCULAR AGENTS: 1. Prazosin: 1 mg Oral At Bedtime 2. Isosorbide Mononitrate Extended Release: 30 mg Oral Daily CENTRAL NERVOUS SYSTEM AGENTS: 1. oxyCODONE Extended Release: 10 mg Oral Every 12 Hours PRN 2. PHENobarbital: 97.2 mg Oral 2 Times a Day 3. LORazepam Injectable: 2 mg IntraVenous Push Once PRN COAGULATION MODIFIERS: 1. Enoxaparin SubCutaneous: 40 mg SubCutaneous Every 24 Hours 2. Clopidogrel: 75 mg Oral Daily GASTROINTESTINAL AGENTS: 1. Docusate 50 mg - Senna 8.6 m tablet(s) Oral At Bedtime 2. Polyethylene Glycol: 17 gram(s) Oral Daily PRN METABOLIC AGENTS: 1. Simvastatin: 20 mg Oral At Bedtime MISCELLANEOUS AGENTS: 1. Nicotine 21 mg/ 24 hour TransDermal: 1 patch TransDermal Every 24 Hours PSYCHOTHERAPEUTIC AGENTS: 1. Sertraline: 100 mg Oral Daily RESPIRATORY AGENTS: 1. diphenhydrAMINE: 25 mg Oral Every 6 Hours PRN TOPICAL AGENTS: 1. Lidocaine 5% TransDermal: 1 patch TransDermal Every 24 Hours 2. Dexamethasone -Neomycin -Polymyxin Ophthalmic: 0.5 inch(es) Both Eyes Every 8 Hours 3. Erythromycin 0.5% Ophthalmic: 0.5 inch(es) Both Eyes Every 24 Hours 4. Latanoprost 0.005% Ophthalmic: 1 drop(s) Both Eyes At Bedtime 5. Olopatadine 0.1% Ophthalmic: 1 drop(s) Both Eyes 2 Times a Day Assessment and Plan: Assessment: Mr. Bear Shine is a 69 YO white man with seizures, CAD s/p stent x2, depression, and PTSD who presented to Psych ED at the [facility] for SI via medication overdose. Psych was concerned about polypharmacy and consulted Neurology at the [facility] for AED management and concerns of possible seizure. He described two different seizure semiologies for which he has been on Tiagabine, Phenobarbital, Keppra and Valium with good control. Given questionable spell at the [facility], he was transferred to [facility] for continuous EEG monitoring and further characterization of these events. He was tapered off tiagabine before transfer to and also got an MRI brain there which was normal. We have further weaned off keppra and valium. He is set to go back to [facility]. 06/08 no changes. EEG: - Interictal: Normal - Ictal: None AEDs: - Prior Home: Tiagabine, Phenobarbital 97.2mg BID, Keppra and Valium 10mg TID - Current: Phenobarbital PLAN: #Paroxysmal events - Completely off valium, remains off tiagabine and off levetiracetam - Continue phenobarbital 97.2mg BID - 2mg IV Ativan PRN for motor seizure >3 minutes - Follow up is with [facility] neurology, NOT Dr. Morales. #Depression with SI #PTSD - Appreciate psych recs - Continue sertraline 100mg daily - Started prazosin 1mg every night per psych recs - Plan to return to [facility] inpatient psych once he is stable from AED/paroxysmal event standpoint (anticipated on 06/09/2019) - Outpatient psychiatrist is Dr. Manzanares in [facility] #Allergic conjunctivitis- /2 brimonidine #Glaucoma - Dcd brimonidine and ketotifen - Started olopatadine 0.1% BID, continue until outpatient follow-up visit with outpatient assistant professor of spanish Fran Anton in [place], [place] (scheduled in discharge profile/summary) - Continue maxitrol ointment for 1 week, stop date is 06/14/2019 - Continue latanoprost every night to both eyes - Continue cool compresses PRN # CAD, stent x2 - Continue ISMN 30mg daily - Continue Plavix 75mg daily - Continue simvastatin 20mg qhs Diet: Regular DVT ppx: SC lovenox, SCDs Dispo: Transfer back to [facility] on 06/08 anticipated Code Status: Full Code Signature/Cosignature/Att estation: Note Completion: I am a: Resident/Fellow Attending AttestationI saw and evaluated the patient. I personally obtained the culp and critical portions of the history and physical exam or was physically present for culp and critical portions performed by the resident/fellow. I reviewed the resident/fellows documentation and discussed the patient with the resident/fellow. I agree with the resident/fellows medical decision making as documented in the note. I personally evaluated the patient [id number] Electronic Signatures: Jemal Alcala (Resident)) (Signed 09-Jun-2019 08:44) Authored: Service, Subjective Data, Objective Data, Assessment and Plan, Signature/Cosignature/Att estation Yyaa Lamb) (Signed 09-Jun-2019 16:04) Authored: Signature/Cosignature/Att estation Co-Signer: Service, Subjective Data, Objective Data, Assessment and Plan, Signature/Cosignature/Att estation Last Updated: 09-Jun-2019 16:04 by Yaya Lamb) Normal [facility] Daily Progress Note - Psychi atryon 06-08-2019 Daily Progress Note - Psychiatry Subjective Data: Consult Type: subsequent visit/care BEAR SHINE is a 69 year old Male who is Hospital Day # 8. Additional Information: PRIETO overnight, patient received prazosin last night, and this am he said he is ready to go back to [facility], and sort out his situations so he could go home soon. He is alert and oriented x3, knows the covid19 pandemic, and denied any SI, HI or delusions. Still complains of back pain, but stated he has a pain management doctor and [facility] is trying to fix him as well. Objective: Objective Information: T PRBPSpO2 [id number]/6897% Date/Time06/07 8:5206/07 8: 8:5206/07 8:5206/07 8:52 Range(35.7C - 36.5C ) (55 - 73 ) (18 - 18 ) (111 - 153 )/ (68 - 75 ) (97% - 97% ) As of 07-Jun-2019 21:30:00, patient is on 1 L/min of oxygen via nasal cannula. Mental Status Exam: General: Overweight, elderly, white male, appears stated age, good hygiene Appearance: Short, jacobs/white hair, blue eyes, mesh netting on head with EEG leads noted Attitude: Pleasant and Cooperative; Fair eye contact Behavior: Calm, In-Control, Non-Threatening Motor Activity: No PMR, PMA or TD/EPS noted; Gait was not assessed Speech: Garbled at times d/t dentition, minimally spontaneous, fluent, with normal r/r/t/v Mood: Ok Affect: Appropriate and Pleasant; Occasionally joking Thought Process: Organized and Linear; Associations are logical Thought Content: Denies Ideations; Denies paranoid delusions Thought Perception: Denies AVH; Pt doesn't appear internally stimulated Cognition: Alert, oriented x 3-4/4 (Pt knows Name, Date, Location, Situation- i.e. reason for admission and covid19 pandemic) --No deficits noted. Adequate fund of knowledge. No deficit in recent and remote memory. No deficits in attention, concentration or language. Insight: Fair Judgment: Fair Medications: CARDIOVASCULAR AGENTS: 1. Prazosin: 1 mg Oral At Bedtime 2. Isosorbide Mononitrate Extended Release: 30 mg Oral Daily CENTRAL NERVOUS SYSTEM AGENTS: 1. oxyCODONE Extended Release: 10 mg Oral Every 12 Hours PRN 2. PHENobarbital: 97.2 mg Oral 2 Times a Day 3. LORazepam Injectable: 2 mg IntraVenous Push Once PRN COAGULATION MODIFIERS: 1. Enoxaparin SubCutaneous: 40 mg SubCutaneous Every 24 Hours 2. Clopidogrel: 75 mg Oral Daily GASTROINTESTINAL AGENTS: 1. Docusate 50 mg - Senna 8.6 m tablet(s) Oral At Bedtime METABOLIC AGENTS: 1. Simvastatin: 20 mg Oral At Bedtime MISCELLANEOUS AGENTS: 1. Nicotine 21 mg/ 24 hour TransDermal: 1 patch TransDermal Every 24 Hours PSYCHOTHERAPEUTIC AGENTS: 1. Sertraline: 100 mg Oral Daily RESPIRATORY AGENTS: 1. diphenhydrAMINE: 25 mg Oral Every 6 Hours PRN TOPICAL AGENTS: 1. Lidocaine 5% TransDermal: 1 patch TransDermal Every 24 Hours 2. Dexamethasone -Neomycin -Polymyxin Ophthalmic: 0.5 inch(es) Both Eyes Every 8 Hours 3. Erythromycin 0.5% Ophthalmic: 0.5 inch(es) Both Eyes Every 24 Hours 4. Latanoprost 0.005% Ophthalmic: 1 drop(s) Both Eyes At Bedtime 5. Olopatadine 0.1% Ophthalmic: 1 drop(s) Both Eyes 2 Times a Day Recent Lab Results: Results: I have reviewed these laboratory results: Complete Blood Count 07-Jun-2019 06:27:00 ResultValue White Blood Cell Count 6.8 Nucleated Erythrocyte Count 0.0 Red Blood Cell Count 5.15 HGB 16.8 HCT 52.2 H MCV 101 H MCHC 32.2 PLT 121 L RDW-CV 13.6 Renal Function Panel 07-Jun-2019 06:27:00 ResultValue Glucose, Serum 117 H NA 138 K 4.1 CL 102 Bicarbonate, Serum 27 Anion Gap, Serum 13 BUN 22 CREAT 1.23 GFR-Non 58 A GFR- 70 Calcium, Serum 8.8 Phosphorus, Serum 2.5 ALB 3.8 Magnesium, Serum 07-Jun-2019 06:27:00 ResultValue Magnesium, Serum 2.06 Assessment and Plan: Assessment: Mr. 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 in [place] d/t possible seizure like episodes and further workup. Pt originally went to [facility] with thoughts of suicidal ideation and was then transferred to the [facility] for inpatient psychiatric admission. The pt was on the inpatient psych unit for approximately 4 days when there was concern for possible seizure like episode, thus neurology was consulted and it was recommended the pt transfer to [facility] for further workup, vEEG. From psych CL understanding, the pt is to return to inpatient psychiatry upon completion of neurological workup. The pt has significant PTSD symptoms which makes him a higher risk for suicide, and although he's not actively having acute suicidal thoughts, the pt admits that he was suicidal four days ago, and the plan is for the into rectum to return to the [facility] inpatient psychiatric unit. Psychiatry CL will follow until pt is transferred back to [facility] and it's pertinent to continue 1:1 sitter and suicide precautions. As of 06/07, pt reports feeling well and stable. Pt looking forward to getting EEG leads removed and returning back to the [facility], which is hopefully today. Pt denies SI/HI/AVH. IMPRESSION: MDD, Recurrent, Severe, without Psychotic Features PTSD Tobacco Use Disorder, Moderate, In a Controlled Environment Seizure Disorder TBI RECS: --Continue 1:1 Sitter with suicide precautions --Pt is to return to [facility] to inpatient psychiatry, where he was admitted prior to medical transfer --Pt MUST remain in hospital attire but please remove/secure personal belongings from the room; cell phone= OK --Pt LACKS CAPACITY and CANNOT LEAVE AMA; If pt attempts to elope, please call Code Katarina --PRN Code Violets for Agitated, Threatening, and Non-Redirectable behaviors --No EKG could be found in the chart --cont scheduled Prazosin 1mg by mouth every evening at bedtime --Continue scheduled Zoloft 100mg by mouth daily --Continue scheduled NRT TD daily Patch for Nicotine cravings --Valium has been tapered off --Non-Pharmacological Management: Please try to reinforce sleep hygiene protocol of: encouraging patient to try to stay awake as much as possible during the day to improve sleep hygiene. Also allow natural light during the day with curtains/blinds open during the day, frequent orientation and attempts to soothing music (from [employer]) etc... to encourage normal sleep/wake cycle --Pt f/u with outpatient psychiatrist, Dr. Manzanares, in [place], [place] --Patient seen with Dr. Multani, Psychiatry will follow daily; Page [phone] with questions Stephanie Cisneros MD Neurology PGY-4 Medication Consent: Medication Consent: NA; consult service. Signature/Cosignature/Att estation: Note Completion: I am a: Resident/Fellow Attending AttestationI saw and evaluated the patient. I personally obtained the culp and critical portions of the history and physical exam or was physically present for culp and critical portions performed by the resident/fellow. I reviewed the resident/fellows documentation and discussed the patient with the resident/fellow. I agree with the resident/fellows medical decision making as documented in their note with the exception/addition of the following: I personally evaluated the patient [id number] Comments/ Additional Findings Patient seen this AM with resident; agree with culp elements of note as above. Patient reports feeling well, no acute concerns aside from back pain. Thinks he slept a bit better; might have had a nightmare (awakened in a sweat) but doesn't recall it. Feels safe here, is pleased about plans to return to [facility] where he would like to speak with the [facility] ([employer] staff and arrange necessary supports and processes for discharge home eventually. MSE as above Agree with continuing current treatment plan; we will see daily, please page [phone] PRN questions MD Ephraim Attending, Psychiatry Electronic Signatures: Luz Maria Multani) (Signed 08-Jun-2019 15:28) Authored: Subjective Data, Signature/Cosignature/Att estation Co-Signer: Subjective Data, Objective, Assessment and Plan, Medication Consent, Signature/Cosignature/Att estation Stephanie Cisneros (Resident)) (Signed 08-Jun-2019 09:56) Authored: Subjective Data, Objective, Assessment and Plan, Medication Consent, Signature/Cosignature/Att estation Last Updated: 08-Jun-2019 15:28 by Luz Maria Multani) Normal [facility] Daily Progress Note-Epilepsy on 06-08-2019 Daily Progress Note-Epilepsy Service: Epilepsy Subjective Data: BEAR SHINE is a 69 year old Male who is Hospital Day # 8. Overnight he says he had a nightmare. no EEG events were captured, per the EMU techs. He says he is in good mood other than wanting the leads off his head [facility] Objective Data: Objective Information: T PRBPSpO2 [id number]/6897% Date/Time06/07 8:524 8:5206/07 8:524 8:5206/07 8:52 Range(35.7C - 36.5C ) (55 - 73 ) (18 - 18 ) (111 - 153 )/ (68 - 75 ) (97% - 97% ) As of 07-Jun-2019 21:30:00, patient is on 1 L/min of oxygen via nasal cannula. Pain reported at 06/07 3:00: 3 = Mild Physical Exam: Constitutional: Resting in bed in NAD Eyes: slightly injected sclerae bilaterally Neurological: Awake, alert, oriented to self, date 06/08/2019, oriented to place, president, thinks rory is current protective services officer. no language deficits noted. VFF today. PER, EOMI full range no nystagmus noted. Face symmetric, can bury eyelids, smile symmetric. Moving all extremities equally and AG with no drift x4. Today on F2N there is bilateral intention tremor noted, left > right. Medication: Medications: CARDIOVASCULAR AGENTS: 1. Prazosin: 1 mg Oral At Bedtime 2. Isosorbide Mononitrate Extended Release: 30 mg Oral Daily CENTRAL NERVOUS SYSTEM AGENTS: 1. oxyCODONE Extended Release: 10 mg Oral Every 12 Hours PRN 2. PHENobarbital: 97.2 mg Oral 2 Times a Day 3. LORazepam Injectable: 2 mg IntraVenous Push Once PRN COAGULATION MODIFIERS: 1. Enoxaparin SubCutaneous: 40 mg SubCutaneous Every 24 Hours 2. Clopidogrel: 75 mg Oral Daily GASTROINTESTINAL AGENTS: 1. Docusate 50 mg - Senna 8.6 m tablet(s) Oral At Bedtime METABOLIC AGENTS: 1. Simvastatin: 20 mg Oral At Bedtime MISCELLANEOUS AGENTS: 1. Nicotine 21 mg/ 24 hour TransDermal: 1 patch TransDermal Every 24 Hours PSYCHOTHERAPEUTIC AGENTS: 1. Sertraline: 100 mg Oral Daily RESPIRATORY AGENTS: 1. diphenhydrAMINE: 25 mg Oral Every 6 Hours PRN TOPICAL AGENTS: 1. Lidocaine 5% TransDermal: 1 patch TransDermal Every 24 Hours 2. Dexamethasone -Neomycin -Polymyxin Ophthalmic: 0.5 inch(es) Both Eyes Every 8 Hours 3. Erythromycin 0.5% Ophthalmic: 0.5 inch(es) Both Eyes Every 24 Hours 4. Latanoprost 0.005% Ophthalmic: 1 drop(s) Both Eyes At Bedtime 5. Olopatadine 0.1% Ophthalmic: 1 drop(s) Both Eyes 2 Times a Day Assessment and Plan: Assessment: Mr. Bear Shine is a 69 YO white man with seizures, CAD s/p stent x2, depression, and PTSD who presented to Psych ED at the [facility] for SI via medication overdose. Psych was concerned about polypharmacy and consulted [facility]rology [facility] the [facility] for AED management and concerns of possible seizure. He described two different seizure semiologies for which he has been on Tiagabine, Phenobarbital, Keppra and Valium with good control. Given questionable spell at the [facility], he was transferred to [facility] for continuous EEG monitoring and further characterization of these events. He was tapered off tiagabine before transfer to and also got an MRI brain there which was normal. We have further weaned off keppra and valium. He is set to go back to [facility]. EEG: - Interictal: Normal - Ictal: None AEDs: - Prior Home: Tiagabine, Phenobarbital 97.2mg BID, Keppra and Valium 10mg TID - Current: Phenobarbital PLAN: #Paroxysmal events - Stop vEEG today - Completely off valium, remains off tiagabine, and levetiracetam - Continue phenobarbital 97.2mg BID - 2mg IV Ativan PRN for motor seizure >3 minutes - Follow up is with [facility] neurology, NOT Dr. Morales. #Depression with SI #PTSD - Appreciate psych recs - Continue sertraline 100mg daily - Started prazosin 1mg every night per psych recs - Plan to return to [facility] inpatient psych once he is stable from AED/paroxysmal event standpoint (anticipated on 06/09/2019) - Outpatient psychiatrist is Dr. Manzanares in [facility] #Allergic conjunctivitis- 04/10 brimonidine #Glaucoma - Dcd brimonidine and ketotifen - Started olopatadine 0.1% BID, continue until outpatient follow-up visit with outpatient assistant professor of spanish Fran Anton in [place], [place] - Continue maxitrol ointment for 1 week, stop date is 06/14/2019 - Continue latanoprost every night to both eyes - Continue cool compresses PRN # CAD, stent x2 - Continue ISMN 30mg daily - Continue Plavix 75mg daily - Continue simvastatin 20mg qhs Diet: Regular DVT ppx: SC lovenox, SCDs Dispo: Transfer back to [facility] on 06/08 Code Status: Full Code Signature/Cosignature/Att estation: Note Completion: I am a: Resident/Fellow Attending AttestationI saw and evaluated the patient. I personally obtained the culp and critical portions of the history and physical exam or was physically present for clup and critical portions performed by the resident/fellow. I reviewed the resident/fellows documentation and discussed the patient with the resident/fellow. I agree with the resident/fellows medical decision making as documented in the note. I personally evaluated the patient [id number] Electronic Signatures: Jemal Alcala (Resident)) (Signed 08-Jun-2019 13:15) Authored: Service, Subjective Data, Objective Data, Assessment and Plan, Signature/Cosignature/Att estation Yaya Lamb) (Signed 08-Jun-2019 14:18) Authored: Assessment and Plan, Signature/Cosignature/Att estation Co-Signer: Assessment and Plan, Signature/Cosignature/Att estation Last Updated: 08-Jun-2019 14:18 by Yaya Lamb) Normal [facility] CBCon 06-07-2019 Erythrocyte distribution width (RBC) [Ratio] 13.6 % Normal 11.5 - 14.5 [facility] Comment on above: Performed By: #### C BC #### [place] [address] [place] [address] Hematocrit (Bld) [Volume fraction] 52.2 % High 41.0 - 52.0 [facility] Comment on above: Performed By: #### C BC #### [place] [address] [place] [address] Hemoglobin (Bld) [Mass/Vol] 16.8 g/dL Normal 13.5 - 17.5 [facility] Comment on above: Performed By: #### C BC #### [place] [address] [place] [address] MCHC (RBC) [Mass/Vol] 32.2 g/dL Normal 32.0 - 36.0 [facility] Comment on above: Performed By: #### C BC #### [facility] [address] [place] [address] MCV (RBC) [Entitic vol] 101 fL High 80 - 100 [facility] Comment on above: Performed By: #### C BC #### [facility] [address] [place] [address] Nucleated RBC/100 WBC (Bld) [Ratio] 0.0 /100 WBC Normal 0.0-0.0 [facility] Comment on above: Performed By: #### C BC #### [facility] [address] [place] [address] Platelets (Bld) [#/Vol] 121 10*3/uL Low 150 - 450 [facility] Comment on above: Performed By: #### C BC #### [facility] [address] [place] [address] RBC (Bld) [#/Vol] 5.15 x10E12/L Normal 4.50 - 5.90 [facility] Comment on above: Performed By: #### C BC #### [facility] [address] [place] [address] WBC (Bld) [#/Vol] 6.8 10*3/uL Normal 4.4 - 11.3 [facility] Comment on above: Performed By: #### C BC #### [facility] [address] [place] [address] Daily Progress Note - Psychi atryon 06-07-2019 Daily Progress Note - Psychiatry Subjective Data: BEAR SHINE is a 69 year old Male who is Hospital Day # 7. Pt was finishing up with PT/OT and was noted to be walking out of the bathroom and then sat in a chair in his room. When asked how he was feeling today, the pt replied, Ok. Pt endorses 8/10 back pain and said that he's supposed to get his EEG leads removed today. Pt said he is ready to go back to [facility]. Pt denies SI/HI/AVH and he denies feelings of anxiety and depression. Pt denies issues with psych meds but asked about restarting Prazosin for his nightmares he experiences. Pt said that when he was at home he ran out of his Prazosin and he forgot to get it refilled. Pt is requesting to restart it for tonight. Of Note, on initial psych consult he reported stopping Prazosin as it made him feel odd and chart review indicates he was previously taking Prazosin 7mg at bedtime. Pt denies issues with appetite or bladder/bowel movements. Pt reports sleeping well at bedtime, but reports nightmares. Pt denies issues with staff and treatment teams. Objective: Objective Information: T PRBPSpO2 [id number]/8196% Date/Time06/06 8: 8: 8: 8: 8:37 Range(36.7C - 36.9C ) (53 - 77 ) (18 - 18 ) (115 - 149 )/ (66 - 81 ) (93% - 96% ) As of 07-Jun-2019 03:00:00, patient is on 2 L/min of oxygen via nasal cannula. Highest temp of 36.9 C was recorded at 06/05 15:57 Pain reported at 06/06 10:16: 8 = Severe ---- Intake and Output ----- Mn/Dy/Year TimeIntakeOutputNet Jun 07, 2019 6:00 [id number] Jun 06, 2019 10:00 pm000 Jun 06, 2019 2:00 [id number] The Intake and Output Totals for the last 24 hours are: IntakeOutputNet [id number] ---Intake--- Enteral - Oral PO Fluid/Feed (oral): 600 mL ---Output--- Urine Voided (mL): 1050 mL Intake Output Enteral - Oral 600 mL Urine 1050 mL Mental Status Exam: General: Overweight, elderly, white male, appears stated age, good hygiene Appearance: Short, jacobs/white hair, blue eyes, mesh netting on head with EEG leads noted; wearing hospital attire and walking from bathroom with PT/OT to sit in chair Attitude: Pleasant and Cooperative; Fair eye contact Behavior: Calm, In-Control, Non-Threatening Motor Activity: No PMR, PMA or TD/EPS noted; Gait was not assessed Speech: Garbled at times d/t dentition, minimally spontaneous, fluent, with normal r/r/t/v Mood: Ok Affect: Appropriate and Pleasant; Occasionally joking Thought Process: Organized and Linear; Associations are logical Thought Content: Denies Ideations; Denies paranoid delusions Thought Perception: Denies AVH; Pt doesn't appear internally stimulated Cognition: Alert, oriented x 3-4/4 (Pt knows Name, Date -with prompting, Location, Situation- i.e. reason for admission) --No deficits noted. Adequate fund of knowledge. No deficit in recent and remote memory. No deficits in attention, concentration or language. Insight: Fair Judgment: Fair Medications: Continuous Medications ------- No continuous medications are active Scheduled Medications ------- 1. Clopidogrel: 75 mg Oral Daily 2. Dexamethasone -Neomycin -Polymyxin Ophthalmic: 0.5 inch(es) Both Eyes Every 8 Hours 3. Docusate 50 mg - Senna 8.6 m tablet(s) Oral At Bedtime 4. Enoxaparin SubCutaneous: 40 mg SubCutaneous Every 24 Hours 5. Erythromycin 0.5% Ophthalmic: 0.5 inch(es) Both Eyes Every 24 Hours 6. Isosorbide Mononitrate Extended Release: 30 mg Oral Daily 7. Latanoprost 0.005% Ophthalmic: 1 drop(s) Both Eyes At Bedtime 8. Lidocaine 5% TransDermal: 1 patch TransDermal Every 24 Hours 9. Nicotine 21 mg/ 24 hour TransDermal: 1 patch TransDermal Every 24 Hours 10. Olopatadine 0.1% Ophthalmic: 1 drop(s) Both Eyes 2 Times a Day 11. PHENobarbital: 97.2 mg Oral 2 Times a Day 12. Sertraline: 100 mg Oral Daily 13. Simvastatin: 20 mg Oral At Bedtime PRN Medications ------- 1. diphenhydrAMINE: 25 mg Oral Every 6 Hours 2. LORazepam Injectable: 2 mg IntraVenous Push Once 3. oxyCODONE Extended Release: 10 mg Oral Every 12 Hours Recent Lab Results: Results: I have reviewed these laboratory results: Complete Blood Count Trending View [id number] 06:27:00 06-Jun-2019 05:26:00 White Blood Cell Count6.8 7.7 Nucleated Erythrocyte Count0.0 0.0 Red Blood Cell Count5.15 5.39 HGB16.8 17.9 H HCT52.2 H 55.7 H KMP348 H 103 H MCHC32.2 32.1 CTX203 L 139 L RDW-CV13.6 13.5 Renal Function Panel Trending View [id number] 06:27:00 06-Jun-2019 05:26:00 Glucose, Fvulc391 H 97 NA138 138 K4.1 4.4 CL102 101 Bicarbonate, Serum27 29 Anion Gap, Serum13 12 BUN22 24 H CREAT1.23 1.20 GFR-Non Jyohsbmf97 A 60 A GFR- Efrclwwe06 73 Calcium, Serum8.8 9.1 Phosphorus, Serum2.5 3.2 ALB3.8 3.9 Magnesium, Serum Trending View [id number] 06:27:00 06-Jun-2019 05:26:00 Magnesium, Serum2.06 1.93 Assessment and Plan: Assessment: Mr. 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 in [place] d/t possible seizure like episodes and further workup. Pt originally went to [facility] with thoughts of suicidal ideation and was then transferred to the [facility] for inpatient psychiatric admission. The pt was on the inpatient psych unit for approximately 4 days when there was concern for possible seizure like episode, thus neurology was consulted and it was recommended the pt transfer to [facility] for further workup, vEEG. From psych CL understanding, the pt is to return to inpatient psychiatry upon completion of neurological workup. The pt has significant PTSD symptoms which makes him a higher risk for suicide, and although he's not actively having acute suicidal thoughts, the pt admits that he was suicidal four days ago, and the plan is for the into rectum to return to the [facility] inpatient psychiatric unit. Psychiatry CL will follow until pt is transferred back to [facility] and it's pertinent to continue 1:1 sitter and suicide precautions. As of 06/06, pt reports feeling well and stable, but would like to restart Prazosin for c/o nightmares. Pt looking forward to getting EEG leads [facility] which [facility] to occur in a few days. Pt denies SI/HI/AVH. IMPRESSION: MDD, Recurrent, Severe, without Psychotic Features PTSD Tobacco Use Disorder, Moderate, In a Controlled Environment Seizure Disorder TBI RECS: --Continue 1:1 Sitter with suicide precautions --Pt is to return to [facility] to inpatient psychiatry, where he was admitted prior to medical transfer --Pt MUST remain in hospital attire but please remove/secure personal belongings from the room; cell phone= OK --Pt LACKS CAPACITY and CANNOT LEAVE AMA; If pt attempts to elope, please call Code Katarina --PRN Code Katarinas for Agitated, Threatening, and Non-Redirectable behaviors --No EKG could be found in the chart --START scheduled Prazosin 1mg by mouth every evening at bedtime --Continue scheduled Zoloft 100mg by mouth daily --Continue scheduled NRT TD daily Patch for Nicotine cravings --Valium has been tapered off --Non-Pharmacological Management: Please try to reinforce sleep hygiene protocol of: encouraging patient to try to stay awake as much as possible during the day to improve sleep hygiene. Also allow natural light during the day with curtains/blinds open during the day, frequent orientation and attempts to soothing music (from [employer]) etc... to encourage normal sleep/wake cycle --Pt f/u with outpatient psychiatrist, Dr. Manzanares, in [place], [place] --Psychiatry will follow daily; Page [phone] with questions Medication Consent: Medication Consent: NA; consult service. Signature/Cosignature/Att estation: Note Completion: Provider/Team Pager #[phone] Electronic Signatures: Lexie Neal ([employer]LEOMARG[employer]INE [employer]CH[employer]IC) (Signed 07-Jun-2019 13:36) Authored: Subjective Data, Objective, Assessment and Plan, Medication Consent, Signature/Cosignature/Att estation Last Updated: 07-Jun-2019 13:36 by Lexie Neal (OLEOMARGARINE MAK[employer]ING MECH[employer]IC) Normal [facility] Daily Progress Note-Neurolog yon 06-07-2019 Daily Progress Note-Neurology Service: Neurology Subjective Data: BEAR SHINE is a 69 year old Male who is Hospital Day # 7. No acute events overnight. Says his mood is good. Is looking forward to getting the EEG leads off. Objective Data: Objective Information: T PRBPSpO2 [id number]/6693% Date/Time06/05 20: 21: 21: 21: 21:30 Range(36.7C - 36.9C ) (53 - 77 ) (18 - 18 ) (115 - 128 )/ (66 - 70 ) (93% - 93% ) As of 07-Jun-2019 03:00:00, patient is on 2 L/min of oxygen via nasal cannula. Highest temp of 36.9 C was recorded at 06/05 15:57 Pain reported at 06/06 3:00: no c/o or s/o pain noted at this time Physical Exam: Constitutional: Resting in bed in NAD Eyes: slightly injected sclerae bilaterally Neurological: Awake, alert, oriented to self, thinks date is 06/06/2019, oriented to place, president, thinks rory is current protective services officer. no language deficits noted. VFF except extinction to simultaneous stim in RLQ. PER, EOMI full range no nystagmus noted. Face symmetric, can bury eyelids, smile symmetric. Moving all extremities equally and AG with no drift x4. No dysmetria in uppers on F2N bilaterally Medication: Medications: CARDIOVASCULAR AGENTS: 1. Isosorbide Mononitrate Extended Release: 30 mg Oral Daily CENTRAL NERVOUS SYSTEM AGENTS: 1. oxyCODONE Extended Release: 10 mg Oral Every 12 Hours PRN 2. PHENobarbital: 97.2 mg Oral 2 Times a Day 3. LORazepam Injectable: 2 mg IntraVenous Push Once PRN COAGULATION MODIFIERS: 1. Enoxaparin SubCutaneous: 40 mg SubCutaneous Every 24 Hours 2. Clopidogrel: 75 mg Oral Daily GASTROINTESTINAL AGENTS: 1. Docusate 50 mg - Senna 8.6 m tablet(s) Oral At Bedtime METABOLIC AGENTS: 1. Simvastatin: 20 mg Oral At Bedtime MISCELLANEOUS AGENTS: 1. Nicotine 21 mg/ 24 hour TransDermal: 1 patch TransDermal Every 24 Hours PSYCHOTHERAPEUTIC AGENTS: 1. Sertraline: 100 mg Oral Daily RESPIRATORY AGENTS: 1. diphenhydrAMINE: 25 mg Oral Every 6 Hours PRN TOPICAL AGENTS: 1. Lidocaine 5% TransDermal: 1 patch TransDermal Every 24 Hours 2. Dexamethasone -Neomycin -Polymyxin Ophthalmic: 0.5 inch(es) Both Eyes Every 8 Hours 3. Erythromycin 0.5% Ophthalmic: 0.5 inch(es) Both Eyes Every 24 Hours 4. Latanoprost 0.005% Ophthalmic: 1 drop(s) Both Eyes At Bedtime 5. Olopatadine 0.1% Ophthalmic: 1 drop(s) Both Eyes 2 Times a Day Recent Lab Results: Results: I have reviewed these laboratory results: Complete Blood Count 06-Jun-2019 05:26:00 ResultValue White Blood Cell Count 7.7 Nucleated Erythrocyte Count 0.0 Red Blood Cell Count 5.39 HGB 17.9 H HCT 55.7 H MCV 103 H MCHC 32.1 PLT 139 L RDW-CV 13.5 Renal Function Panel 06-Jun-2019 05:26:00 ResultValue Glucose, Serum 97 NA 138 K 4.4 CL 101 Bicarbonate, Serum 29 Anion Gap, Serum 12 BUN 24 H CREAT 1.20 GFR-Non 60 A GFR- 73 Calcium, Serum 9.1 Phosphorus, Serum 3.2 ALB 3.9 Magnesium, Serum 06-Jun-2019 05:26:00 ResultValue Magnesium, Serum 1.93 Assessment and Plan: Advance Care Planning: Advance Care Planning: Patient didn't wish to or was unable to provide advance care plan he is to return to inpatient psychiatry due to suicide precautions. We cannot determine advanced care information in setting of suicidal ideation Assessment: Mr. Bear Shine is a 69 YO white man with seizures, CAD s/p stent x2, depression, and PTSD who presented to Psych ED at the [facility] for SI via medication overdose. Psych was concerned about polypharmacy and consulted Neurology at the [facility] for AED management and concerns of possible seizure. He described two different seizure semiologies for which he has been on Tiagabine, Phenobarbital, Keppra and Valium with good control. Given questionable spell at the [facility], he was transferred to [facility] for continuous EEG monitoring and further characterization of these events. He was tapered off tiagabine before transfer to and also got an MRI brain there which was normal. We have further weaned off keppra with plan to wean off valium since EEG has been normal. Then he will go back to the [facility]. EEG: - Interictal: Normal - Ictal: None AEDs: - Home: Tiagabine, Phenobarbital 97.2mg BID, Keppra and Valium 10mg TID - Current: Phenobarbital PLAN: #Paroxysmal events - Continue vEEG while weaning valium - Weaning valium, 2.5mg once on 06/06, then stop - Continue phenobarbital 97.2mg BID - 2mg IV Ativan PRN for motor seizure >3 minutes #Depression with SI #PTSD - Appreciate psych recs - Continue sertraline 100mg daily - Plan to return to [facility] inpatient psych once he is stable from AED/paroxysmal event standpoint (anticipated on 06/09/2019) - Outpatient psychiatrist is Dr. Manzanares in [facility] #Allergic conjunctivitis- 2/2 brimonidine #Glaucoma - Dcd brimonidine and ketotifen - Started olopatadine 0.1% BID, continue until outpatient follow-up visit with outpatient assistant professor of spanish Fran Anton in [place], [place] - Continue maxitrol ointment for 1 week, stop date is 06/14/2019 - Continue latanoprost every night to both eyes - Continue cool compresses PRN # CAD, stent x2 - Continue ISMN 30mg daily - Continue Plavix 75mg daily - Continue simvastatin 20mg qhs Diet: Regular DVT ppx: SC lovenox, SCDs Dispo: Transfer back to [facility] on 06/08 Code Status: Full Code Signature/Cosignature/Att estation: Note Completion: I am a: Resident/Fellow Attending AttestationI saw and evaluated the patient. I personally obtained the culp and critical portions of the history and physical exam or was physically present for culp and critical portions performed by the resident/fellow. I reviewed the resident/fellows documentation and discussed the patient with the resident/fellow. I agree with the resident/fellows medical decision making as documented in the note. I personally evaluated the patient [id number] Electronic Signatures: Jemal Alcala (Resident)) (Signed 07-Jun-2019 09:12) Authored: Service, Subjective Data, Objective Data, Assessment and Plan, Signature/Cosignature/Att estation Yaya Lamb) (Signed 07-Jun-2019 13:27) Authored: Signature/Cosignature/Att estation Co-Signer: Assessment and Plan, Signature/Cosignature/Att estation Last Updated: 07-Jun-2019 13:27 by Yaya Lamb) Normal [facility] MAGNESIUMon 06-07-2019 Magnesium [Mass/Vol] 2.06 mg/dL Normal 1.60 - 2.40 [facility] Comment on above: Performed By: #### M G #### [facility] [address] [place] [address] RENAL FUNCTION PANELon 06-06 Albumin [Mass/Vol] 3.8 g/dL Normal 3.4 - 5.0 [facility] Comment on above: Performed By: #### C BCDF #### [facility] [address] [place] [address] Anion gap [Moles/Vol] 13 mmol/L Normal 10 - 20 [facility] Comment on above: Performed By: #### C BCDF #### [facility] [address] [place] [address] Calcium [Mass/Vol] 8.8 mg/dL Normal 8.6 - 10.6 [facility] Comment on above: Performed By: #### C BCDF #### [facility] [address] [place] [address] Chloride [Moles/Vol] 102 mmol/L Normal 98 - 107 [facility] Comment on above: Performed By: #### C BCDF #### [facility] [address] [place] [address] Creatinine [Mass/Vol] 1.23 mg/dL Normal 0.50 - 1.30 [facility] Comment on above: Performed By: #### C BCDF #### [facility] [address] [place] [address] GFR- AM. 70 mL/min/1.73m2 Normal >60 [facility] Comment on above: Result Comment: CALC ULATIONS OF ESTIMATED GFR ARE PERFORMED USING THE MDRD STUDY EQUATION FOR THE IDMS-TRACEABLE CREATININE METHODS. CLIN CHEM 2007;53:766-72 Performed By: #### C BCDF #### [place] [address] [place] [address] GFR-NON AM. 58 mL/min/1.73m2 Abnormal >60 [facility] Comment on above: Performed By: #### C BCDF #### [facility] [address] [place] [address] Glucose [Mass/Vol] 117 mg/dL High 74 - 99 [facility] Comment on above: Performed By: #### C BCDF #### [facility] [address] [place] [address] HCO3 (Bld) [Moles/Vol] 27 mmol/L Normal 21 - 32 [facility] Comment on above: Performed By: #### C BCDF #### [facility] [address] [place] [address] Phosphate [Mass/Vol] 2.5 mg/dL Normal 2.5 - 4.9 [facility] Comment on above: Result Comment: The performance characteristics of phosphorus testing in heparinized plasma have been validated by the individual laboratory site where testing is performed. Testing on heparinized plasma is not approved by the FDA; however, such approval is not necessary. Performed By: #### C BCDF #### [facility] [address] [place] [address] Potassium [Moles/Vol] 4.1 mmol/L Normal 3.5 - 5.3 [facility] Comment on above: Performed By: #### C BCDF #### [facility] [address] [place] [address] Sodium [Moles/Vol] 138 mmol/L Normal 136 - 145 [facility] Comment on above: Performed By: #### C BCDF #### [facility] [address] [place] [address] Urea nitrogen [Mass/Vol] 22 mg/dL Normal 6 - 23 [facility] Comment on above: Performed By: #### C BCDF #### [facility] [address] [place] [address] CBCon 06-06-2019 Erythrocyte distribution width (RBC) [Ratio] 13.5 % Normal 11.5 - 14.5 [facility] Comment on above: Performed By: #### C BC #### [facility] [address] [place] [address] Hematocrit (Bld) [Volume fraction] 55.7 % High 41.0 - 52.0 [facility] Comment on above: Performed By: #### C BC #### [facility] [address] [place] [address] Hemoglobin (Bld) [Mass/Vol] 17.9 g/dL High 13.5 - 17.5 [facility] Comment on above: Performed By: #### C BC #### [facility] [address] [place] [address] MCHC (RBC) [Mass/Vol] 32.1 g/dL Normal 32.0 - 36.0 [facility] Comment on above: Performed By: #### C BC #### [place] [address] [place] [address] MCV (RBC) [Entitic vol] 103 fL High 80 - 100 [facility] Comment on above: Performed By: #### C BC #### [facility] [address] [place] [address] Nucleated RBC/100 WBC (Bld) [Ratio] 0.0 /100 WBC Normal 0.0-0.0 [facility] Comment on above: Performed By: #### C BC #### [facility] [address] [place] [address] Platelets (Bld) [#/Vol] 139 10*3/uL Low 150 - 450 [facility] Comment on above: Performed By: #### C BC #### [facility] [address] [place] [address] RBC (Bld) [#/Vol] 5.39 x10E12/L Normal 4.50 - 5.90 [facility] Comment on above: Performed By: #### C BC #### [facility] [address] [place] [address] WBC (Bld) [#/Vol] 7.7 10*3/uL Normal 4.4 - 11.3 [facility] Comment on above: Performed By: #### C BC #### [facility] [address] [place] [address] Clinical Event Noteon 2019 Clinical Event Note Event: Details: Patient was dilated with 1% tropicamide and 2.5% phenylepherine at (1030 AM). Effects should last approximately 4-6 hours however may last longer. Electronic Signatures: Enedina Pugh ( (Resident)) (Signed 06-Jun-2019 10:41) Authored: Event Last Updated: 06-Jun-2019 10:41 by Enedina Pugh ( (Resident)) Normal [facility] Daily Progress Note - Psychi atryon 06-06-2019 Daily Progress Note - Psychiatry Subjective Data: BEAR SHINE is a 69 year old Male who is Hospital Day # 6. Pt was awake, laying in bed, had washcloth over his eyes and sitter seated in the room but stepped out to allow for privacy. When the pt was asked how he was feeling he replied, Ok. Pt reports 8/10 back pain and said [facility]. [facility] with [facility] etc... Pt denies SI/HI/AVH and when he was asked about anxiety and depression the pt replied, it's pretty good now. Pt denies issues with psych meds. When the pt was asked how he will manage when he returns home with being in isolation for COVID-19 pandemic state guidelines, the pt said, it will pretty much be the same. I don't get too many visitors. Pt then said he has bills to pay and he needs to get his Yorkie dog, Michaelle from his neighbor Lindsay who has been watching her while he's in the hospital. Pt said his brother [place], calls daily, but said he lives in [place], [place] which is 30 miles from him. Pt said his appetite is good and he denies issues with bladder/bowel movements and said he has been sleeping pretty good on this admission. Pt reports staff and treatment teams have been treating him pretty good on this admission. Objective: Objective Information: T PRBPSpO2 [id number]/6998% Date/Time06/05 7: 7: 7: 7: 7:01 Range(36.5C - 36.7C ) (51 - 57 ) (16 - 20 ) (115 - 127 )/ (69 - 75 ) (95% - 98% ) As of 06-Jun-2019 08:34:00, patient is on 2 L/min of oxygen via nasal cannula. Pain reported at 06/05 9:17: 7 = Severe ---- Intake and Output ----- Mn/Dy/Year TimeIntakeOutputNet Jun 06, 2019 6:00 [id number] Jun 05, 2019 10:00 [id number] Jun 05, 2019 2:00 [id number] The Intake and Output Totals for the last 24 hours are: IntakeOutputNet [id number] ---Intake--- Enteral - Oral PO Fluid/Feed (oral): 1200 mL ---Output--- Urine Voided (mL): 2900 mL Intake Output Enteral - Oral 1200 mL Urine 2900 mL Mental Status Exam: General: Overweight, elderly, white, male, appears stated age, good hygiene Appearance: Short, jacobs/white hair, blue eyes, nc in place, resting calmly awake in bed, wearing hospital attire, and silver watch noted on left wrist Attitude: Pleasant and Cooperative; Fair eye contact Behavior: Calm, In-Control, Non-Threatening Motor Activity: No PMR, PMA or TD/EPS noted; Gait was not assessed Speech: Garbled at times d/t dentition, minimally spontaneous, fluent, with normal r/r/t/v Mood: Ok Affect: Appropriate and Pleasant; Occasionally joking Thought Process: Organized and Linear; Associations are logical Thought Content: Denies Ideations; Denies paranoid delusions Thought Perception: Denies AVH; Pt doesn't appear internally stimulated Cognition: Alert, oriented x 3-4/4 (Pt knows Name, Date -with prompting, Location, Situation- i.e. reason for admission) --No deficits noted. Adequate fund of knowledge. No deficit in recent and remote memory. No deficits in attention, concentration or language. Insight: Fair Judgment: Fair Medications: Continuous Medications ------- No continuous medications are active Scheduled Medications ------- 1. Clopidogrel: 75 mg Oral Daily 2. Dexamethasone -Neomycin -Polymyxin Ophthalmic: 0.5 inch(es) Both Eyes Every 8 Hours 3. diazePAM (VALIUM): 2.5 mg Oral 4. Docusate 50 mg - Senna 8.6 m tablet(s) Oral At Bedtime 5. Enoxaparin SubCutaneous: 40 mg SubCutaneous Every 24 Hours 6. Erythromycin 0.5% Ophthalmic: 0.5 inch(es) Both Eyes Every 24 Hours 7. Isosorbide Mononitrate Extended Release: 30 mg Oral Daily 8. Latanoprost 0.005% Ophthalmic: 1 drop(s) Both Eyes At Bedtime 9. Lidocaine 5% TransDermal: 1 patch TransDermal Every 24 Hours 10. Nicotine 21 mg/ 24 hour TransDermal: 1 patch TransDermal Every 24 Hours 11. Olopatadine 0.1% Ophthalmic: 1 drop(s) Both Eyes 2 Times a Day 12. PHENobarbital: 97.2 mg Oral 2 Times a Day 13. Sertraline: 100 mg Oral Daily 14. Simvastatin: 20 mg Oral At Bedtime PRN Medications ------- 1. diphenhydrAMINE: 25 mg Oral Every 6 Hours 2. LORazepam Injectable: 2 mg IntraVenous Push Once 3. oxyCODONE Extended Release: 10 mg Oral Every 12 Hours Recent Lab Results: Results: I have reviewed these laboratory results: Complete Blood Count 06-Jun-2019 05:26:00 ResultValue White Blood Cell Count 7.7 Nucleated Erythrocyte Count 0.0 Red Blood Cell Count 5.39 HGB 17.9 H HCT 55.7 H MCV 103 H MCHC 32.1 PLT 139 L RDW-CV 13.5 Renal Function Panel 06-Jun-2019 05:26:00 ResultValue Glucose, Serum 97 NA 138 K 4.4 CL 101 Bicarbonate, Serum 29 Anion Gap, Serum 12 BUN 24 H CREAT 1.20 GFR-Non 60 A GFR- 73 Calcium, Serum 9.1 Phosphorus, Serum 3.2 ALB 3.9 Magnesium, Serum 06-Jun-2019 05:26:00 ResultValue Magnesium, Serum 1.93 Assessment and Plan: Assessment: Mr. 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 in [place] d/t possible seizure like episodes and further workup. Pt originally went to [facility] with thoughts of suicidal ideation and was then transferred to the [facility] for inpatient psychiatric admission. The pt was on the inpatient psych unit for approximately 4 days when there was concern for possible seizure like episode, thus neurology was consulted and it was recommended the pt transfer to [facility] for further workup, vEEG. From psych CL understanding, the pt is to return to inpatient psychiatry upon completion of neurological workup. The pt has significant PTSD symptoms which makes him a higher risk for suicide, and although he's not actively having acute suicidal thoughts, the pt admits that he was suicidal four days ago, and the plan is for the into rectum to return to the [facility] inpatient psychiatric unit. Psychiatry CL will follow until pt [facility] and it's pertinent to continue 1:1 sitter and suicide precautions. As of 3/30, pt reports stable mood and anxiety, and states he's supposed to be transferred back to [facility] today, as he prefers, and said they'll arrange his psych discharge f/u appts for him. Per primary team, the pt will likely be discharged on 06/09/19. Pt denies SI/HI/AVH. IMPRESSION: MDD, Recurrent, Severe, without Psychotic Features PTSD Tobacco Use Disorder, Moderate, In a Controlled Environment Seizure Disorder TBI RECS: --Continue 1:1 Sitter with suicide precautions --Pt is to return to [facility] to inpatient psychiatry, where he was admitted prior to medical transfer --Pt MUST remain in hospital attire but please remove/secure personal belongings from the room; cell phone= OK --Pt LACKS CAPACITY and CANNOT LEAVE AMA; If pt attempts to elope, please call Code Katarina --PRN Code Violets for Agitated, Threatening, and Non-Redirectable behaviors --No EKG could be found in the chart --Continue scheduled Zoloft 100mg by mouth daily --Pt is being tapered off Valium --Continue scheduled NRT TD daily Patch for Nicotine cravings --Non-Pharmacological Management: Please try to reinforce sleep hygiene protocol of: encouraging patient to try to stay awake as much as possible during the day to improve sleep hygiene. Also allow natural light during the day with curtains/blinds open during the day, frequent orientation and attempts to soothing music (from [employer]) etc... to encourage normal sleep/wake cycle --Pt f/u with outpatient psychiatrist, Dr. Manzanares, in [place], [place] --Psychiatry will follow daily; Page [phone] with questions Medication Consent: Medication Consent: NA; consult service. Signature/Cosignature/Att estation: Note Completion: Provider/Team Pager #[phone] Electronic Signatures: Lexie Neal (OLEOMARGARINE MAK[employer]ING MECH[employer]IC) (Signed 06-Jun-2019 16:12) Authored: Subjective Data, Objective, Assessment and Plan, Medication Consent, Signature/Cosignature/Att estation Last Updated: 06-Jun-2019 16:12 by Lexie Neal (OLEOMARGARINE MAK[employer]ING MECH[employer]IC) Normal [facility] Daily Progress Note-Epilepsy on 06-06-2019 Daily Progress Note-Epilepsy Service: Epilepsy Subjective Data: BEAR SHINE is a 69 year old Male who is Hospital Day # 6. Additional Information: NAEO. Weaning valium with stable vitals Objective Data: Objective Information: T PRBPSpO2 [id number]/6998% Date/Time06/05 7: 7: 7: 7: 7:01 Range(36.5C - 36.7C ) (51 - 57 ) (16 - 20 ) (115 - 137 )/ (69 - 82 ) (95% - 98% ) As of 05-Jun-2019 19:50:00, patient is on 2 L/min of oxygen via nasal cannula. Pain reported at 06/04 19:50: 0 = None Physical Exam: Constitutional: Resting in bed in NAD Respiratory/Thorax: Breathing comfortably on 2L NC. States he wears this every night Cardiovascular: Warm and well-perfused Neurological: Awake, alert, keeps asking to go home Moving all extremities equally and AG Medication: Medications: Continuous Medications ------- No continuous medications are active Scheduled Medications ------- 1. Clopidogrel: 75 mg Oral Daily 2. Dexamethasone -Neomycin -Polymyxin Ophthalmic: 0.5 inch(es) Both Eyes Every 8 Hours 3. diazePAM (VALIUM): 2.5 mg Oral 4. Docusate 50 mg - Senna 8.6 m tablet(s) Oral At Bedtime 5. Enoxaparin SubCutaneous: 40 mg SubCutaneous Every 24 Hours 6. Erythromycin 0.5% Ophthalmic: 0.5 inch(es) Both Eyes Every 24 Hours 7. Isosorbide Mononitrate Extended Release: 30 mg Oral Daily 8. Latanoprost 0.005% Ophthalmic: 1 drop(s) Both Eyes At Bedtime 9. Lidocaine 5% TransDermal: 1 patch TransDermal Every 24 Hours 10. Nicotine 21 mg/ 24 hour TransDermal: 1 patch TransDermal Every 24 Hours 11. Olopatadine 0.1% Ophthalmic: 1 drop(s) Both Eyes 2 Times a Day 12. PHENobarbital: 97.2 mg Oral 2 Times a Day 13. Sertraline: 100 mg Oral Daily 14. Simvastatin: 20 mg Oral At Bedtime PRN Medications ------- 1. diphenhydrAMINE: 25 mg Oral Every 6 Hours 2. LORazepam Injectable: 2 mg IntraVenous Push Once 3. oxyCODONE Extended Release: 10 mg Oral Every 12 Hours Recent Lab Results: Results: I have reviewed these laboratory results: Complete Blood Count 06-Jun-2019 05:26:00 ResultValue White Blood Cell Count 7.7 Nucleated Erythrocyte Count 0.0 Red Blood Cell Count 5.39 HGB 17.9 H HCT 55.7 H MCV 103 H MCHC 32.1 PLT 139 L RDW-CV 13.5 Renal Function Panel 06-Jun-2019 05:26:00 ResultValue Glucose, Serum 97 NA 138 K 4.4 CL 101 Bicarbonate, Serum 29 Anion Gap, Serum 12 BUN 24 H CREAT 1.20 GFR-Non 60 A GFR- 73 Calcium, Serum 9.1 Phosphorus, Serum 3.2 ALB 3.9 Magnesium, Serum 06-Jun-2019 05:26:00 ResultValue Magnesium, Serum 1.93 Assessment and Plan: Assessment: Mr. Bear Shine is a 69 YO white man with seizures, CAD s/p stent x2, depression, and PTSD who presented to Psych ED at the [facility] for SI via medication overdose. Psych was concerned about polypharmacy and consulted [facility] for AED management and concerns of possible seizure. He described two different seizure semiologies for which he has been on Tiagabine, Phenobarbital, Keppra and Valium with good control. Given questionable spell at the [facility], he was transferred to [facility] for continuous EEG monitoring and further characterization of these events. He was tapered off tiagabine before transfer to and also got an MRI brain there which was normal. We have further weaned off keppra with plan to wean off valium since EEG has been normal. Then he will go back to the [facility]. EEG: - Interictal: Normal - Ictal: None AEDs: - Home: Tiagabine, Phenobarbital 97.2mg BID, Keppra and Valium 10mg TID - Current: Phenobarbital PLAN: #Paroxysmal events - Continue vEEG while weaning valium - Weaning valium, 2.5mg BID 06/05, then 2.5mg daily 06/06 - Continue phenobarbital 97.2mg BID - 2mg IV Ativan PRN for motor seizure >3 minutes #Depression with SI #PTSD - SI resolved - Appreciate psych recs - Continue sertraline 100mg daily - F/u with outpatient psychiatrist, Dr. Manzanares, in [facility] #Allergic conjunctivitis- 2/2 brimonidine #Glaucoma - Dcd brimonidine and ketotifen - Started olopatadine 0.1% BID and fluorometholone 0.1% ophthalmic ointment to periocular skin only (not in the eye) TID-QID to both eyes for one week - Continue latanoprost every night to both eyes - Continue cool compresses PRN # CAD, stent x2 - Continue ISMN 30mg daily - Continue Plavix 75mg daily - Continue simvastatin 20mg qhs Diet: Regular DVT ppx: SC lovenox, SCDs Dispo: Transfer back to [facility] on 06/08 Code Status: Full Code Signature/Cosignature/Att estation: Note Completion: I am a: Resident/Fellow Attending AttestationI saw and evaluated the patient. I personally obtained the culp and critical portions of the history and physical exam or was physically present for culp and critical portions performed by the resident/fellow. I reviewed the resident/fellows documentation and discussed the patient with the resident/fellow. I agree with the resident/fellows medical decision making as documented in the note. I personally evaluated the patient [id number] Electronic Signatures: Miriam Cartagena (Resident)) (Signed 06-Jun-2019 12:08) Authored: Service, Subjective Data, Objective Data, Assessment and Plan, Signature/Cosignature/Att estation Yaya Lamb) (Signed 06-Jun-2019 15:11) Authored: Assessment and Plan, Signature/Cosignature/Att estation Co-Signer: Service, Subjective Data, Objective Data, Assessment and Plan, Signature/Cosignature/Att estation Last Updated: 06-Jun-2019 15:11 by Yaya Lamb) Normal [facility] Daily Progress Note-Ophthalm ologyon 06-06-2019 Daily Progress Note-Ophthalmology Service: Ophthalmology Subjective Data: BEAR SHINE is a 69 year old Male who is Hospital Day # 6. Objective Data: Objective Information: T PRBPSpO2 [id number]/6998% Date/Time06/05 7: 7: 7: 7: 7:01 Range(36.5C - 36.7C ) (51 - 57 ) (16 - 20 ) (115 - 127 )/ (69 - 75 ) (95% - 98% ) As of 06-Jun-2019 08:34:00, patient is on 2 L/min of oxygen via nasal cannula. Pain reported at 06/05 9:17: 7 = Severe Assessment and Plan: Assessment: Patient is a 69 year old male with PMH seizure disorder, depression , PTSD, glaucoma, hx of injury to left skull with subsequent decrease in vision, who was [facility] due to concern of seizure and polypharmacy. He initially presented to [facility] psych with suicidal ideation as he called 911 with thoughts of medication overdose. He reported two seizure like episodes. Given questionable spell at the [facility], he was transferred to [facility] for continuous EEG monitoring. Ophthalmology was consulted due to eye redness and irritation. Patient states that his eyes started watering, itching and burning 3 days ago. He also noticed eye swelling and redness, left eye more than right eye. He states it started in both eyes at the same time. Patient is a poor historian. Seen on 06/03 and brimonidine and ketotifen were stopped as possible causative agents. Maxitrol ointment periocularly was started, and oloptadine. Patient states that his eyes feel improved from when he was last seen. Visual Acuity with Correction at Near: right Eye 20/30; left eye 20/60 - [facility] Pupils: equal, round, and reactive to light both eyes, + RAPD OS - stable from last [facility] exam 02/2018 Extra Ocular Movements: intact and full both eyes Confrontational Visual Field: full to count fingers right eye, deficit temporal/inferior OS Intraocular Pressure with Tonopen: 10 right eye, 13 left eye Anterior Segment, Right Eye: External: periorbital erythema, and edema with thickened skin; no suspicious skin lesions both eyes Lids/Lashes: within normal limits, no ptosis, no meibomian gland dysfunction, no blepharitis Conjunctiva and Sclera: Palpebral conjunctiva 1+ hyperemia, bulbar conjunctiva white and quiet Cornea: clear, no edema Anterior Chamber: deep and quiet Iris: flat, round, reactive to light Lens: 1-2 NS and CS Anterior Segment, Left Eye: External: periorbital erythema, and edema with thickened skin; no suspicious skin lesions both eyes Lids/Lashes: within normal limits, no ptosis, no meibomian gland dysfunction, no blepharitis Conjunctiva and Sclera: Palpebral conjunctiva 1+ hyperemia, bulbar conjunctiva white and quiet Cornea: clear, no edema Anterior Chamber: deep and quiet Iris: flat, round, reactive to light Lens: 1-2 NS and CS Dilated Fundus Exam Right Eye: Vitreous clear Cup:disc ratio: 0.3 Optic nerve healthy, pink, sharp, no edema, no telangiectatic surface vessels, no pallor noted Vessels: no tortuosity, no neovascularization normal diameter, no hemorrhages or exudates Macula flat, good foveal reflex, no exudates or folds Periphery no retinal breaks, detachment, peripheral hemorrhage or exudates noted. Left Eye: Vitreous clear Cup:disc ratio: 0.7 Optic nerve: pale, sharp, no edema, no telangiectatic surface vessels, no pallor noted Vessels: no tortuosity, no neovascularization normal diameter, no hemorrhages or exudates Macula flat, good foveal reflex, no exudates or folds Periphery no retinal breaks, detachment, peripheral hemorrhage or exudates noted. Assessment/Plan: #Allergic conjunctivitis, both eyes - Patient with eye itching and watering for the past 3 days in both eyes - Exam and history consistent with allergic conjunctivitis. - appears improved today compared to prior, and subjective improvement per patient - Continue cool compresses PRN - continue olopatadine and millicent-ocular maxitrol ointment #Glaucoma OS>OD - Continue latanoprost every night to both eyes - Patient now off brimonidine, likely the cause of his allergic conjunctivitis - Pressure remains at an acceptable level, so we will not add any medications at this time Patient is stable from ophthalmology stand point so we will sign off, please consult for any other eye related concerns. Enedina Pugh MD PGY3 Ophthalmology Resident Ophthalmology Adult Pager - [phone] Ophthalmology Pediatrics Pager - [phone] To schedule appointment for adult patients: [phone] To schedule appointments for pediatric patients: [phone] Consult Signoff: Consult Order ID: [id number] Signature/Cosignature/Att estation: Note Completion: I am a: Resident/Fellow Attending AttestationI saw and evaluated the patient. I personally obtained the culp and critical portions of the history and physical exam or was physically present for culp and critical portions performed by the resident/fellow. I reviewed the resident/fellows documentation and discussed the patient with the resident/fellow. I agree with the resident/fellows medical decision making as documented in their note with the exception/addition of the following: I personally evaluated the patient [id number] Comments/ Additional Findings Agree with plan as above, no changes. Electronic Signatures: Kerry Lentz) (Signed 06-Jun-2019 14:51) Authored: Signature/Cosignature/Att estation Co-Signer: Service, Subjective Data, Objective Data, Assessment and Plan, Signature/Cosignature/Att estation Enedina Pugh (Resident)) (Signed 06-Jun-2019 12:35) Authored: Service, Subjective Data, Objective Data, Assessment and Plan, Signature/Cosignature/Att estation Last Updated: 06-Jun-2019 14:51 by Kerry Lentz) Normal [facility] MAGNESIUMon 06-06-2019 Magnesium [Mass/Vol] 1.93 mg/dL Normal 1.60 - 2.40 [facility] Comment on above: Performed By: #### M G #### [facility] [address] [place] [address] RENAL FUNCTION PANELon 06-05 Albumin [Mass/Vol] 3.9 g/dL Normal 3.4 - 5.0 [facility] Comment on above: Performed By: #### R ENAL #### [facility] [address] [place] [address] Anion gap [Moles/Vol] 12 mmol/L Normal 10 - 20 [facility] Comment on above: Performed By: #### R ENAL #### [facility] [address] [place] [address] Calcium [Mass/Vol] 9.1 mg/dL Normal 8.6 - 10.6 [facility] Comment on above: Performed By: #### R ENAL #### [facility] [address] [place] [address] Chloride [Moles/Vol] 101 mmol/L Normal 98 - 107 [facility] Comment on above: Performed By: #### R ENAL #### [place] [address] [place] [address] Creatinine [Mass/Vol] 1.20 mg/dL Normal 0.50 - 1.30 [facility] Comment on above: Performed By: #### R ENAL #### [facility] [address] [place] [address] GFR- AM. 73 mL/min/1.73m2 Normal >60 [facility] Comment on above: Result Comment: CALC ULATIONS OF ESTIMATED GFR ARE PERFORMED USING THE MDRD STUDY EQUATION FOR THE IDMS-TRACEABLE CREATININE METHODS. CLIN CHEM 2007;53:766-72 Performed By: #### R ENAL #### [facility] [address] [place] [address] GFR-NON AM. 60 mL/min/1.73m2 Abnormal >60 [facility] Comment on above: Performed By: #### R ENAL #### [facility] [address] [place] [address] Glucose [Mass/Vol] 97 mg/dL Normal 74 - 99 [facility] Comment on above: Performed By: #### R ENAL #### [facility] [address] [place] [address] HCO3 (Bld) [Moles/Vol] 29 mmol/L Normal 21 - 32 [facility] Comment on above: Performed By: #### R ENAL #### [facility] [address] [place] [address] Phosphate [Mass/Vol] 3.2 mg/dL Normal 2.5 - 4.9 [facility] Comment on above: Result Comment: The performance characteristics of phosphorus testing in heparinized plasma have been validated by the individual laboratory site where testing is performed. Testing on heparinized plasma is not approved by the FDA; however, such approval is not necessary. Performed By: #### R ENAL #### [facility] [address] [place] [address] Potassium [Moles/Vol] 4.4 mmol/L Normal 3.5 - 5.3 [facility] Comment on above: Performed By: #### R ENAL #### [facility] [address] [place] [address] Sodium [Moles/Vol] 138 mmol/L Normal 136 - 145 [facility] Comment on above: Performed By: #### R ENAL #### [facility] [address] [place] [address] Urea nitrogen [Mass/Vol] 24 mg/dL High 6 - 23 [facility] Comment on above: Performed By: #### R ENAL #### [facility] [address] [place] [address] Daily Progress Note - Psychi atryon 06-05-2019 Daily Progress Note - Psychiatry Subjective Data: BEAR SHINE is a 69 year old Male who is Hospital Day # 5. Pt sleeping today (seen around 1200). He reports that he is doing ok in terms of mood. No SI/HI, no AVH, no concerns with staff. Valium is being tapered, denies increased anxiety and no si/sx of withdrawal. ROS: eyes itching, saw ophtho yesterday. No cough, no fever Per RN, has been ok in terms of mood, behavior. Ask if pt can have coloring matieral. Objective: Objective Information: T PRBPSpO2 [id number]/8296% Date/Time06/04 8: 8: 8: 8: 8:55 Range(36C - 36.5C ) (52 - 56 ) (18 - 18 ) (122 - 137 )/ (68 - 82 ) (96% - 96% ) As of 05-Jun-2019 08:55:00, patient is on 2 L/min of oxygen via nasal cannula. Mental Status Exam: Appearance: avg build M lying in bed, EEG leads in place, wash cloth on forehead Attitude: cooperative, limited engagement Behavior: lying on back, limited eye contact Motor Activity: normal tone, no rigidity Speech: regular in rate, volume. mild dysarthria (per sitter improves when more awake), no aphasia Mood: ok Affect: mildly irritable Thought Process: no QUANG Thought Content: no delusions, denies SI/HI Thought Perception: no AVH, not RTIS Cognition: asleep, awakes to voice/gentle touch. oriented to person, place, date. attn fair. Insight: fair Judgment: fair Medications: Continuous Medications ------- No continuous medications are active Scheduled Medications ------- 1. Clopidogrel: 75 mg Oral Daily 2. Dexamethasone -Neomycin -Polymyxin Ophthalmic: 0.5 inch(es) Both Eyes Every 8 Hours 3. diazePAM (VALIUM): 5 mg Oral Every 12 Hours 4. Docusate 50 mg - Senna 8.6 m tablet(s) Oral At Bedtime 5. Enoxaparin SubCutaneous: 40 mg SubCutaneous Every 24 Hours 6. Erythromycin 0.5% Ophthalmic: 0.5 inch(es) Both Eyes Every 24 Hours 7. Isosorbide Mononitrate Extended Release: 30 mg Oral Daily 8. Latanoprost 0.005% Ophthalmic: 1 drop(s) Both Eyes At Bedtime 9. Lidocaine 5% TransDermal: 1 patch TransDermal Every 24 Hours 10. Nicotine 21 mg/ 24 hour TransDermal: 1 patch TransDermal Every 24 Hours 11. Olopatadine 0.1% Ophthalmic: 1 drop(s) Both Eyes 2 Times a Day 12. PHENobarbital: 97.2 mg Oral 2 Times a Day 13. Sertraline: 100 mg Oral Daily 14. Simvastatin: 20 mg Oral At Bedtime PRN Medications ------- 1. diphenhydrAMINE: 25 mg Oral Every 6 Hours 2. LORazepam Injectable: 2 mg IntraVenous Push Once 3. oxyCODONE Extended Release: 10 mg Oral Every 12 Hours Assessment and Plan: Assessment: Mr. 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 in [place] d/t possible seizure like episodes and further workup. Pt originally went to [facility] with thoughts of suicidal ideation and was then transferred to the [facility] for inpatient psychiatric admission. The pt was on the inpatient psych unit for approximately 4 days when there was concern for possible seizure like episode, thus neurology was consulted and it was recommended the pt transfer to [facility] for further workup, vEEG. From psych CL understanding, the pt is to return to inpatient psychiatry upon completion of neurological workup. The pt has significant PTSD symptoms which makes him a higher risk for suicide, and although he's not actively having acute suicidal thoughts, the pt admits that he was suicidal four days ago, and the plan is for the into rectum to return to the [facility] inpatient psychiatric unit. Psychiatry CL will follow until pt is transferred back to [facility] and it's pertinent to continue 1:1 sitter and suicide precautions. As of 06/01, the pt was pleasant and cooperative but reports back pain and feeling sleepy this morning, but otherwise indicates he's feeling well. Pt denies concerns for safety as he said he's met some other guys on the [facility] inpatient psych unit, and being around them has been helpful. Pt denies issues with psych regimen. Pt denies SI/HI/AVH. As of 06/02, pt was transferred to EMU for continuos vEEG monitoring. Pt reports feeling well and enjoys social interaction with peers and staff, and reports recent restrictions of no visitors and his [facility] services being held during coronavirus restrictions, likely led to his suicidal thoughts when he initially presented to the [facility]. Pt reports plans to f/u with his outpatient psychiatrist and to eventually also f/u with PTSD classes when coronavirus restrictions are over. Pt denies SI/HI/AVH. 06/04: pt ok in terms of mood, no concerns with valium taper, continue EMU plan of care IMPRESSION: MDD, Recurrent, Severe, without Psychotic Features PTSD Tobacco Use Disorder, Moderate, In a Controlled Environment Seizure Disorder TBI RECS: --Continue 1:1 Sitter with suicide precautions --Pt is to return to [facility] to inpatient psychiatry, where he was admitted prior to medical transfer --Pt MUST remain in hospital attire but please remove/secure personal belongings from the room; cell phone= OK --Pt LACKS CAPACITY and CANNOT LEAVE AMA; If pt attempts to elope, please call Code Katarina --PRN Code Violets for Agitated, Threatening, and Non-Redirectable behaviors --No EKG could be found in the chart --Continue scheduled Zoloft 100mg by mouth daily --Valium taper per Neuro for EMU evaluation --Continue scheduled NRT TD daily Patch for Nicotine cravings --Non-Pharmacological Management: Please try to reinforce sleep hygiene protocol of: encouraging patient to try to stay awake as much as possible during the day to improve sleep hygiene. Also allow natural light during the day with curtains/blinds open during the day, frequent orientation and attempts to soothing music (from [employer]) etc... to encourage normal sleep/wake cycle --Pt f/u with outpatient psychiatrist, Dr. Manzanares, in [place], [place] --Psychiatry will follow daily; Page [phone] with questions Medication Consent: Medication Consent: NA; consult service. Electronic Signatures: Fabiola Short) (Signed 05-Jun-2019 12:55) Authored: Subjective Data, Objective, Assessment and Plan, Medication Consent, Signature/Cosignature/Att estation Last Updated: 05-Jun-2019 12:55 by Fabiola Short) Normal [facility] Daily Progress Note-Epilepsy on 06-05-2019 Daily Progress Note-Epilepsy Service: Epilepsy Subjective Data: BEAR SHINE is a 69 year old Male who is Hospital Day # 5. No acute issues overnight No SI No seizure Eyes feels stable. Objective Data: Objective Information: T PRBPSpO2 [id number]% Date/Time06/04 8: 8: 8: 8: 8:55 Range(36C - 36.5C ) (52 - 56 ) (18 - 18 ) (122 - 137 )/ (68 - 82 ) (96% - 96% ) As of 05-Jun-2019 08:55:00, patient is on 2 L/min of oxygen via nasal cannula. Pain reported at 06/04 8:55: 4 = Moderate Physical Exam: Constitutional: Not on distress Respiratory/Thorax: Non laboured breathing Neurological: A,Ox4. Obeying commands. Cooperative. congested sclera bilat . PERRL Moving 4 limbs antigravity Medication: Medications: Continuous Medications ------- No continuous medications are active Scheduled Medications ------- 1. Clopidogrel: 75 mg Oral Daily 2. Dexamethasone -Neomycin -Polymyxin Ophthalmic: 0.5 inch(es) Both Eyes Every 8 Hours 3. diazePAM (VALIUM): 5 mg Oral Every 12 Hours 4. Docusate 50 mg - Senna 8.6 m tablet(s) Oral At Bedtime 5. Enoxaparin SubCutaneous: 40 mg SubCutaneous Every 24 Hours 6. Erythromycin 0.5% Ophthalmic: 0.5 inch(es) Both Eyes Every 24 Hours 7. Isosorbide Mononitrate Extended Release: 30 mg Oral Daily 8. Latanoprost 0.005% Ophthalmic: 1 drop(s) Both Eyes At Bedtime 9. Lidocaine 5% TransDermal: 1 patch TransDermal Every 24 Hours 10. Nicotine 21 mg/ 24 hour TransDermal: 1 patch TransDermal Every 24 Hours 11. Olopatadine 0.1% Ophthalmic: 1 drop(s) Both Eyes 2 Times a Day 12. PHENobarbital: 97.2 mg Oral 2 Times a Day 13. Sertraline: 100 mg Oral Daily 14. Simvastatin: 20 mg Oral At Bedtime PRN Medications ------- 1. diphenhydrAMINE: 25 mg Oral Every 6 Hours 2. LORazepam Injectable: 2 mg IntraVenous Push Once 3. oxyCODONE Extended Release: 10 mg Oral Every 12 Hours Recent Lab Results: Results: I have reviewed these laboratory results: Complete Blood Count + Differential 04-Jun-2019 06:01:00 ResultValue White Blood Cell Count 7.2 Nucleated Erythrocyte Count 0.0 Red Blood Cell Count 5.34 HGB 17.9 H HCT 54.8 H MCV 103 H MCHC 32.7 PLT 131 L RDW-CV 13.4 Neutrophil % 61.1 Immature Granulocytes % 3.2 H Lymphocyte % 19.3 Monocyte % 12.0 Eosinophil % 2.9 Basophil % 1.5 Neutrophil Count 4.39 Lymphocyte Count 1.39 Monocyte Count 0.86 H Eosinophil Count 0.21 Basophil Count 0.11 H Renal Function Panel 04-Jun-2019 06:01:00 ResultValue Glucose, Serum 114 H NA 136 K 4.3 CL 100 Bicarbonate, Serum 28 Anion Gap, Serum 12 BUN 24 H CREAT 1.20 GFR-Non 60 A GFR- 73 Calcium, Serum 9.0 Phosphorus, Serum 3.2 ALB 3.9 Assessment and Plan: Admitting Dx: Seizure: Entered Date: 01-Jun-2019 15:16 Advance Care Planning: Advance Care Planning: Patient didn't wish to or was unable to provide advance care plan Assessment: Mr. Shine is a 69 year old man with seizure disorder, depression , PTSD, glaucoma who was transferred from [facility] for concern of seizure and polypharmacy indeed he presented to Psych ED at the [facility] for concerns of suicidal ideation as he called 911 with thoughts of medication overdose. [facility] team were concerned about polypharmacy and consulted Neurology at the [facility] for AED management and concerns of possible seizure. He describes two different seizure semiologies for which he has been on Tiagabine and Phenobarbital with good control. Given questionable spell at the [facility], he was transferred to [facility] for continuous EEG monitoring and further characterization of these events. We stopped his keppra and he is on phenobarbital We are trying to wean him off valium gradually under EEG. His VEEG has been unremarkable. He has red eyes appreciate ophthalmology rec -> allergic conjunctivitis . Appreciate psych rec , keep 1:1 sitter , no more SI, unfortunately no sitter available per nurses but there is video. [facility] # Paroxysmal event: - transfer to EMU - vEEG: EEG has been unremarkable so far. - [facility] Brain at [facility] was unremarkable - continue Phenobarb 97.2 BID - wean Diazepam was 10 TID -> 5mg TID -> today down 5 BID ( tolerated well , no tachycardia or other concerning symptoms) -> tomorrow 2.5 BID for one day ( 06/05) then 2.5 One sexton on 06/06 then DC ( if he will tolerate) - AED levels therapeutic - 2mg Ativan PRN seizure >3 minutes # Depression/SI: # PTSD: - psych consulted, appreciate recs - 1-1 sitter -Appreciate psych rec , keep 1:1 sitter , no more SI, unfortunately no sitter available per nurses but there is video - no active thoughts of SI - Sertraline 100mg daily # Red eyes: ophthalmology consulted appreciate recs. Dx: Allergic conjunctivitis eyes medication adjusted per ophthalmology # HTN: # CAD: # Stroke prevention: - Isosorbide mononitrate 30mg daily - goal normotension - Plavix 75mg daily - nicotine patch F: PO E: replete as needed N: regular Dvt ppx: lovenox, SCDs GI ppx: not indicated Full Code Cameron Raya MD PGY4 Neurology. Personal pager [phone] Epilepsy team pager [phone] Signature/Cosignature/Att estation: Note Completion: I am a: Resident/Fellow Attending AttestationI saw and evaluated the patient. I personally obtained the culp and critical portions of the history and physical exam or was physically present for culp and critical portions performed by the resident/fellow. I reviewed the resident/fellows documentation and discussed the patient with the resident/fellow. I agree with the resident/fellows medical decision making as documented in the note. I personally evaluated the patient [id number] Electronic Signatures: Cameron Raya (Resident)) (Signed 05-Jun-2019 14:52) Authored: Service, Subjective Data, Objective Data, Assessment and Plan, Signature/Cosignature/Att estation Nelsy Le) (Signed 07-Jun-2019 20:35) Authored: Assessment and Plan, Signature/Cosignature/Att estation Co-Signer: Assessment and Plan, Signature/Cosignature/Att estation Last Updated: 07-Jun-2019 20:35 by Nelsy Le) Normal [facility] CBC AND DIFFERENTIALon 06-03 % AUTOMATED IMMATURE GRAN 3.2 % High 0.0 - 0.9 [facility] Comment on above: Result Comment: Shante ture Granulocyte Count (IG) includes promyelocytes, myelocytes and metamyelocytes but does not include bands. Percent differential counts (%) should be interpreted in the context of the absolute cell counts (cells/L). Performed By: #### C BCDF #### [facility] [address] [place] [address] Basophils (Bld) [#/Vol] 0.11 10*3/uL High 0.00 - 0.10 [facility] Comment on above: Performed By: #### C BCDF #### [facility] [address] [place] [address] Basophils/100 WBC (Bld) 1.5 % Normal 0.0 - 2.0 [facility] Comment on above: Performed By: #### C BCDF #### [facility] [address] [place] [address] Eosinophils (Bld) [#/Vol] 0.21 10*3/uL Normal 0.00 - 0.40 [facility] Comment on above: Performed By: #### C BCDF #### [facility] [address] [place] [address] Eosinophils/100 WBC (Bld) 2.9 % Normal 0.0 - 6.0 [facility] Comment on above: Performed By: #### C BCDF #### [facility] [address] [place] [address] Erythrocyte distribution width (RBC) [Ratio] 13.4 % Normal 11.5 - 14.5 [facility] Comment on above: Performed By: #### C BCDF #### [facility] [address] [place] [address] Hematocrit (Bld) [Volume fraction] 54.8 % High 41.0 - 52.0 [facility] Comment on above: Performed By: #### C BCDF #### [facility] [address] [place] [address] Hemoglobin (Bld) [Mass/Vol] 17.9 g/dL High 13.5 - 17.5 [facility] Comment on above: Performed By: #### C BCDF #### [facility] [address] [place] [address] Lymphocytes (Bld) [#/Vol] 1.39 10*3/uL Normal 0.80 - 3.00 [facility] Comment on above: Performed By: #### C BCDF #### [facility] [address] [place] [address] Lymphocytes/100 WBC (Bld) 19.3 % Normal 13.0 - 44.0 [facility] Comment on above: Performed By: #### C BCDF #### [facility] [address] [place] [address] MCHC (RBC) [Mass/Vol] 32.7 g/dL Normal 32.0 - 36.0 [facility] Comment on above: Performed By: #### C BCDF #### [facility] [address] [place] [address] MCV (RBC) [Entitic vol] 103 fL High 80 - 100 [facility] Comment on above: Performed By: #### C BCDF #### [facility] [address] [place] [address] Monocytes (Bld) [#/Vol] 0.86 10*3/uL High 0.05 - 0.80 [facility] Comment on above: Performed By: #### C BCDF #### [facility] [address] [place] [address] Monocytes/100 WBC (Bld) 12.0 % Normal 2.0 - 10.0 [facility] Comment on above: Performed By: #### C BCDF #### [facility] [address] [place] [address] Neutrophils (Bld) [#/Vol] 4.39 10*3/uL Normal 1.60 - 5.50 [facility] Comment on above: Performed By: #### C BCDF #### [facility] [address] [place] [address] Neutrophils/100 WBC (Bld) 61.1 % Normal 40.0 - 80.0 [facility] Comment on above: Performed By: #### C BCDF #### [facility] [address] [place] [address] Nucleated RBC/100 WBC (Bld) [Ratio] 0.0 /100 WBC Normal 0.0-0.0 [facility] Comment on above: Performed By: #### C BCDF #### [facility] [address] [place] [address] Platelets (Bld) [#/Vol] 131 10*3/uL Low 150 - 450 [facility] Comment on above: Performed By: #### C BCDF #### [facility] [address] [place] [address] RBC (Bld) [#/Vol] 5.34 x10E12/L Normal 4.50 - 5.90 [facility] Comment on above: Performed By: #### C BCDF #### [facility] [address] [place] [address] WBC (Bld) [#/Vol] 7.2 10*3/uL Normal 4.4 - 11.3 [facility] Comment on above: Performed By: #### C BCDF #### [facility] [address] [place] [address] Clinical Event Noteon 2019 Clinical Event Note Event: Details: Ophthalmology consulted for a dilated fundus exam. Applied the following drops to both eyes at 7:45 PM : phenylephrine 2.5% and tropicamide 1% Cycloplegic and dilation effects typically last 4-6 hours, but may last up to 24 hours. Please contact the ophthalmology service for further questions/comments. Sofia Loera) Eduardo Ophthalmology, PGY-2 Ophthalmology Adult Pager - [phone] Ophthalmology Pediatrics Pager - [phone] To schedule appointment for adult patients: [phone] To schedule appointments for pediatric patients: [phone] Electronic Signatures: Sofia Clark (Resident)) (Signed 04-Jun-2019 19:50) Authored: Event Last Updated: 04-Jun-2019 19:50 by Sofia Clark (Resident)) Normal [facility] Consult-Ophthalmologyon 05-08 Consult-Ophthalmology Service: Service: Ophthalmology Consult: Consult requested by (Attending Name): Nelsy Le Reason: eyes redness History of Present Illness: HPI: BEAR SHINE is a 69 year old Male Allergies: Keflex: Swelling/Edema Dilantin: Swelling/Edema, Hives/Urticaria Bee Stings: Swelling/Edema, Hives/Urticaria, Resp Distress sesame oil: Unknown Assessment: - Continue latanoprost every night Patient is a 69 year old male with PMH seizure disorder, depression , PTSD, glaucoma, hx of injury to left skull with subsequent decrease in vision, who was transferred from [facility] due to concern of seizure and polypharmacy. He initially presented to [facility] psych with suicidal ideation as he called 911 with thoughts of medication overdose. He reported two seizure like episodes. Given questionable spell at the [facility], he was transferred to [facility] for continuous EEG monitoring. Ophthalmology was consulted due to eye redness and irritation. Patient states that his eyes started watering, itching and burning 3 days ago. He also noticed eye swelling and redness, left eye more than right eye. He states it started in both eyes at the same time. Patient is a poor historian. He does not believe he was recently started on any new eye drops or new medications. Does not recall any triggering events. He does have seasonal allergies but denies any other allergic symptoms other than eye itching. Usually he has congestion and other allergic symptoms. On further questioning, states maybe ketotifen is new, he used to use pataday. Pt denies purulent discharge, decreased vision, double vision, new blind spots, flashes or floaters. States he has always had bad vision in the left eye. PMH: Per provider note Allergies: allergy list reviewed Past Ocular Hx: None Family Hx: No hx of glaucoma, age related macular degeneration, blindness Social Hx: lives with family ROS: negative in all 14 systems except for those listed in HPI Medications: the list in the system reviewed Visual Acuity with Correction at Near: right Eye 20/25; left eye 20/60 Pupils: equal, round, and reactive to light both eyes, no relative afferent pupillary defect Extra Ocular Movements: intact and full both eyes Gaze: orthotropic Confrontational Visual Field: full to count fingers right eye, deficit temporal/inferor OS Intraocular Pressure with Tonopen: 7 right eye, 12 left eye Anterior Segment, Right Eye: External: periorbital erythema, and edema with lichenified/scaly skin; no suspicious skin lesions both eyes Lids/Lashes: within normal limits, no ptosis, no meibomian gland dysfunction, no blepharitis Conjunctiva and Sclera: 1+ hyperemia with follicles upper and lower tarsal conjunctiva Cornea: clear, no edema Anterior Chamber: deep and quiet Iris: flat, round, reactive to light Lens: 1-2 NS and CS Anterior Segment, Left Eye: External: periorbital erythema, and edema with lichenified/scaly skin, worse than right eye. no suspicious skin lesions both eyes Lids/Lashes: within normal limits, no ptosis, no meibomian gland dysfunction, no blepharitis Conjunctiva and sclera: 1+ hyperemia with follicles upper and lower tarsal conjunctiva Cornea: clear, no edema Anterior Chamber: deep and quiet Iris: flat, round, reactive to light Lens: 1-2 NS and CS Dilated Fundus Exam Right Eye: Vitreous clear Cup:disc ratio: 0.3 Optic nerve healthy, pink, sharp, no edema, no telangiectatic surface vessels, no pallor noted Vessels: no tortuosity, no neovascularization normal diameter, no hemorrhages or exudates Macula flat, good foveal reflex, no exudates or folds Periphery no retinal breaks, detachment, peripheral hemorrhage or exudates noted. Left Eye: Vitreous clear Cup:disc ratio: 0.7 Optic nerve: pale, sharp, no edema, no telangiectatic surface vessels, no pallor noted Vessels: no tortuosity, no neovascularization normal diameter, no hemorrhages or exudates Macula flat, good foveal reflex, no exudates or folds Periphery no retinal breaks, detachment, peripheral hemorrhage or exudates noted. Assessment/Plan: #Allergic conjunctivitis, both eyes - Patient with eye itching and watering for the past 3 days in both eyes - Exam and history consistent with allergic conjunctivitis. Possibilities include allergy to brimonidine (commonly causes follicular conjunctivitis) or ketotifen (which is a new medication for him). - Recommend discontinue brimonidine for now - Recommend stopping ketotifen and switch to olopatadine 0.1% BID - Start fluorometholone 0.1% ophthalmic ointment or maxitrol ophthalmic ointment to periocular skin only (not in the eye) TID-QID to both eyes for one week - Continue latanoprost every night to both eyes - Continue cool compresses PRN - Will recheck intraocular pressure in 2-[address] page ophthalmology [phone] with any questions. Sofia Clark M.D. Ophthalmology, PGY-2 Patient discussed with senior resident Dr. Atkins. The note is not final until co-signed by Dr. Montesinos. Ophthalmology Adult Pager - [phone] Ophthalmology Pediatrics Pager - [phone] To schedule appointment for adult patients: [phone] To schedule appointments for pediatric patients: [phone] Consult Signoff: Consult Order ID: [id number] Signature/Cosignature/Att estation: Note Completion: I am a: Resident/Fellow Attending AttestationI reviewed the resident/fellows documentation and discussed the patient with the resident/fellow. I agree with the resident/fellows medical decision making as documented in the note. Electronic Signatures: Alyssa Montesinos) (Signed 06-Jun-2019 11:19) Authored: Signature/Cosignature/Att estation Co-Signer: Assessment/Recommendation s, Signature/Cosignature/Att estation Sofia Clark (Resident)) (Signed 04-Jun-2019 22:11) Authored: Service, History of Present Illness, Allergies, Assessment/Recommendation s, Signature/Cosignature/Att estation Last Updated: 06-Jun-2019 11:19 by Alyssa Montesinos) Normal [facility] Daily Progress Note - Psychi atryon 06-04-2019 Daily Progress Note - Psychiatry Subjective Data: BEAR HSINE is a 69 year old Male who is Hospital Day # 4. Pt seen today, asleep with sitter at bedside. Awakens to voice. Reports doing ok, denies episode/seizure. Valium is being tapered. Denies AVH, denies SI/HI, denies concern with staff. Aware of plan for 5-7 days on EMU, states hopes it is only 5 days. Reports concern of eyes burning ROS: no seizures, eyes burning Per RN, no concerns with behavior. Objective: Objective Information: T PRBPSpO2 [id number]/7497% Date/Time06/03 7: 7: 7: 7: 7:41 Range(36.3C - 37.4C ) (53 - 62 ) (18 - 18 ) (126 - 137 )/ (71 - 74 ) (94% - 97% ) As of 04-Jun-2019 07:41:00, patient is on 2 L/min of oxygen via nasal cannula. Highest temp of 37.4 C was recorded at 06/02 15:32 Mental Status Exam: Appearance: avg build M lying in bed, EEG leads in place, wash cloth on forehead Attitude: cooperative, fair engagement Behavior: lying on back, fair eye contact Motor Activity: normal tone, no rigidity Speech: regular in rate, volume. mild dysarthria (per sitter improves when more awake), no aphasia Mood: ok Affect: mildly irritable Thought Process: no QUANG Thought Content: no delusions, denies SI/HI Thought Perception: no AVH, not RTIS Cognition: asleep, awakes to voice/gentle touch. oriented to person, place, date. attn fair. Insight: fair Judgment: fair Medications: Continuous Medications ------- No continuous medications are active Scheduled Medications ------- 1. Brimonidine 0.1% Ophthalmic: 1 drop(s) Both Eyes 2 Times a Day 2. Clopidogrel: 75 mg Oral Daily 3. diazePAM (VALIUM): 5 mg Oral Every 8 Hours 4. Docusate 50 mg - Senna 8.6 m tablet(s) Oral At Bedtime 5. Enoxaparin SubCutaneous: 40 mg SubCutaneous Every 24 Hours 6. Erythromycin 0.5% Ophthalmic: 0.5 inch(es) Both Eyes Every 24 Hours 7. Isosorbide Mononitrate Extended Release: 30 mg Oral Daily 8. Ketotifen 0.025% Ophthalmic: 1 drop(s) Both Eyes Every 12 Hours 9. Latanoprost 0.005% Ophthalmic: 1 drop(s) Both Eyes At Bedtime 10. Lidocaine 5% TransDermal: 1 patch TransDermal Every 24 Hours 11. Nicotine 21 mg/ 24 hour TransDermal: 1 patch TransDermal Every 24 Hours 12. PHENobarbital: 97.2 mg Oral 2 Times a Day 13. Sertraline: 100 mg Oral Daily 14. Simvastatin: 20 mg Oral At Bedtime PRN Medications ------- 1. diphenhydrAMINE: 25 mg Oral Every 24 Hours 2. LORazepam Injectable: 2 mg IntraVenous Push Once 3. oxyCODONE Extended Release: 10 mg Oral Every 12 Hours Recent Lab Results: Results: I have reviewed these laboratory results: Complete Blood Count + Differential [Drawn 04-Jun-2019 06:01:00], Renal Function Panel [Drawn 04-Jun-2019 06:01:00], Phenobarbital Level, Serum [Drawn 03-Jun-2019 08:45:00]. Assessment and Plan: Assessment: Mr. 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 in [place] d/t possible seizure like episodes and further workup. Pt originally went to [facility] with thoughts of suicidal ideation and was then transferred to the [facility] for inpatient psychiatric admission. The pt was on the inpatient psych unit for approximately 4 days when there was concern for possible seizure like episode, thus neurology was consulted and it was recommended the pt transfer to [facility] for further workup, vEEG. From psych CL understanding, the pt is to return to inpatient psychiatry upon completion of neurological workup. The pt has significant PTSD symptoms which makes him a higher risk for suicide, and although he's not actively having acute suicidal thoughts, the pt admits that he was suicidal four days ago, and the plan is for the into rectum to return to the [facility] inpatient psychiatric unit. Psychiatry CL will follow until pt is transferred back to [facility] and it's pertinent to continue 1:1 sitter and suicide precautions. As of 06/01, the pt was pleasant and cooperative but reports back pain and feeling sleepy this morning, but otherwise indicates he's feeling well. Pt denies concerns for safety as he said he's met some other guys on the [facility] inpatient psych unit, and being around them has been helpful. Pt denies issues with psych regimen. Pt denies SI/HI/AVH. As of 06/02, pt was transferred to EMU for continuos vEEG monitoring. Pt reports feeling well and enjoys social interaction with peers and staff, and reports recent restrictions of no visitors and his [employer] services being held during coronavirus restrictions, likely led to his suicidal thoughts when he initially presented to the [facility]. Pt reports plans to f/u with his outpatient psychiatrist and to eventually also f/u with PTSD classes when coronavirus restrictions are over. Pt denies SI/HI/AVH. IMPRESSION: MDD, Recurrent, Severe, without Psychotic Features PTSD Tobacco Use Disorder, Moderate, In a Controlled Environment Seizure Disorder TBI RECS: --Continue 1:1 Sitter with suicide precautions --Pt is to return to [facility] to inpatient psychiatry, where he was admitted prior to medical transfer --Pt MUST remain in hospital attire but please remove/secure personal belongings from the room; cell phone= OK --Pt LACKS CAPACITY and CANNOT LEAVE AMA; If pt attempts to elope, please call Code Katarina --PRN Code Violets for Agitated, Threatening, and Non-Redirectable behaviors --No EKG could be found in the chart --Continue scheduled Zoloft 100mg by mouth daily --Valium taper per Neuro for EMU evaluation --Continue scheduled NRT TD daily Patch for Nicotine cravings --Non-Pharmacological Management: Please try to reinforce sleep hygiene protocol of: encouraging patient to try to stay awake as much as possible during the day to improve sleep hygiene. Also allow natural light during the day with curtains/blinds open during the day, frequent orientation and attempts to soothing music (from [employer]) etc... to encourage normal sleep/wake cycle --Pt f/u with outpatient psychiatrist, Dr. Manzanares, in [place], [place] --Psychiatry will follow daily; Page [phone] with questions Medication Consent: Medication Consent: NA; consult service. Electronic Signatures: Fabiola Short) (Signed 04-Jun-2019 14:59) Authored: Subjective Data, Objective, Assessment and Plan, Medication Consent, Signature/Cosignature/Att estation Last Updated: 04-Jun-2019 14:59 by Fabiola Short) Normal [facility] Daily Progress Note-Epilepsy on 06-04-2019 Daily Progress Note-Epilepsy Service: Epilepsy Subjective Data: BEAR SHINE is a 69 year old Male who is Hospital Day # 4. No acute issues overnight He still has burnring sensation in his eyes (ophth consulted). Objective Data: Objective Information: T PRBPSpO2 [id number]/7497% Date/Time06/03 7: 7: 7: 7: 7:41 Range(36.3C - 37.4C ) (53 - 62 ) (18 - 18 ) (126 - 137 )/ (71 - 74 ) (94% - 97% ) As of 04-Jun-2019 07:41:00, patient is on 2 L/min of oxygen via nasal cannula. Highest temp of 37.4 C was recorded at 06/02 15:32 Pain reported at 06/03 10:00: sleeping Physical Exam: Constitutional: Not on distress Respiratory/Thorax: Non laboured breathing Neurological: A,Ox4. Obeying commands. Cooperative. congested sclera bilat . PERRL Moving 4 limbs antigravity Recent Lab Results: Results: I have reviewed these laboratory results: Complete Blood Count + Differential Trending View [id number] 06:01:00 03-Jun-2019 06:23:00 White Blood Cell Count7.2 9.8 Nucleated Erythrocyte Count0.0 0.0 Red Blood Cell Count5.34 5.56 HGB17.9 H 18.5 H HCT54.8 H 57.1 H OKT639 H 103 H MCHC32.7 32.4 VWK995 L 137 L RDW-CV13.4 13.3 Neutrophil %61.1 75.4 Immature Granulocytes %3.2 H 1.4 H Lymphocyte %19.3 11.2 Monocyte %12.0 9.4 Eosinophil %2.9 1.7 Basophil %1.5 0.9 Neutrophil Count4.39 7.36 H Lymphocyte Count1.39 1.09 Monocyte Count0.86 H 0.92 H Eosinophil Count0.21 0.17 Basophil Count0.11 H 0.09 Renal Function Panel 04-Jun-2019 06:01:00 ResultValue Glucose, Serum 114 H NA 136 K 4.3 CL 100 Bicarbonate, Serum 28 Anion Gap, Serum 12 BUN 24 H CREAT 1.20 GFR-Non 60 A GFR- 73 Calcium, Serum 9.0 Phosphorus, Serum 3.2 ALB 3.9 Phenobarbital Level, Serum 03-Jun-2019 08:45:00 ResultValue Phenobarbital Level, Serum 27.7 Assessment and Plan: Advance Care Planning: Advance Care Planning: I evaluated the patient and determined the patient's capacity to understand the risks, benefits and alternatives to treatment. I elicited the patient's goals for treatment and reviewed advance directives and medical orders for life sustaining treatment. The patient was given an opportunity to review a blank advance directive as appropriate. Assessment: Mr. Shine is a 69 year old man with seizure disorder, depression , PTSD, glaucoma who was transferred from [facility] psych for concern of seizure and polypharmacy indeed he presented to Psych ED at the [facility] for concerns of suicidal ideation as he called 911 with thoughts of medication overdose. [facility] were concerned about polypharmacy and consulted Neurology at the [facility] for AED management and concerns of possible seizure. He describes two different seizure semiologies for which he has been on Tiagabine and Phenobarbital with good control. Given questionable spell at the [facility], he was transferred to [facility] for continuous EEG monitoring and further characterization of these events. We stopped his keppra and he is on phenobarbital We are trying to wean him off valium gradually under EEG. He has red eyes and ophthalmology consulted. [facility] on vEEG # Paroxysmal event: - transfer to EMU - vEEG: EEG has been unremarkable so far. - MRI Brain at [facility] was unremarkable - continue Phenobarb 97.2 BID - wean Diazepam -> 5mg TID _ > tomorrow will go down 5 BID - AED levels therapeutic - 2mg Ativan PRN seizure >3 minutes # Depression/SI: # PTSD: - psych consulted, appreciate recs - 1-1 sitter - no active thoughts of SI - Sertraline 100mg daily # Red eyes: ophthalmology consulted appreciate recs. # HTN: # CAD: # Stroke prevention: - Isosorbide mononitrate 30mg daily - goal normotension - Plavix 75mg daily - nicotine patch F: PO E: replete as needed N: regular Dvt ppx: lovenox, SCDs GI ppx: not indicated Full Code Cameron Raya MD PGY4 Neurology. Personal pager [phone] Epilepsy team pager [phone] Signature/Cosignature/Att estation: Note Completion: I am a: Resident/Fellow Attending AttestationI saw and evaluated the patient. I personally obtained the culp and critical portions of the history and physical exam or was physically present for culp and critical portions performed by the resident/fellow. I reviewed the resident/fellows documentation and discussed the patient with the resident/fellow. I agree with the resident/fellows medical decision making as documented in the note. I personally evaluated the patient [id number] Electronic Signatures: Cameron Raya (Resident)) (Signed 04-Jun-2019 14:12) Authored: Service, Subjective Data, Objective Data, Assessment and Plan, Signature/Cosignature/Att estation Nelsy Le) (Signed 07-Jun-2019 20:28) Authored: Assessment and Plan, Signature/Cosignature/Att estation Co-Signer: Service, Subjective Data, Objective Data, Assessment and Plan, Signature/Cosignature/Att estation Last Updated: 07-Jun-2019 20:28 by Nelsy Le) Normal [facility] RENAL FUNCTION PANELon 06-03 Albumin [Mass/Vol] 3.9 g/dL Normal 3.4 - 5.0 [facility] Comment on above: Performed By: #### M G #### [facility] [address] [place] [address] Anion gap [Moles/Vol] 12 mmol/L Normal 10 - 20 [facility] Comment on above: Performed By: #### M G #### [facility] [address] [place] [address] Calcium [Mass/Vol] 9.0 mg/dL Normal 8.6 - 10.6 [facility] Comment on above: Performed By: #### M G #### [facility] [address] [place] [address] Chloride [Moles/Vol] 100 mmol/L Normal 98 - 107 [facility] Comment on above: Performed By: #### M G #### [facility] [address] [place] [address] Creatinine [Mass/Vol] 1.20 mg/dL Normal 0.50 - 1.30 [facility] Comment on above: Performed By: #### M G #### [facility] [address] [place] [address] GFR- AM. 73 mL/min/1.73m2 Normal >60 [facility] Comment on above: Result Comment: CALC ULATIONS OF ESTIMATED GFR ARE PERFORMED USING THE MDRD STUDY EQUATION FOR THE IDMS-TRACEABLE CREATININE METHODS. CLIN CHEM 2007;53:766-72 Performed By: #### M G #### [facility] [address] [place] [address] GFR-NON AM. 60 mL/min/1.73m2 Abnormal >60 [facility] Comment on above: Performed By: #### M G #### [facility] [address] [place] [address] Glucose [Mass/Vol] 114 mg/dL High 74 - 99 [facility] Comment on above: Performed By: #### M G #### [facility] [address] [place] [address] HCO3 (Bld) [Moles/Vol] 28 mmol/L Normal 21 - 32 [facility] Comment on above: Performed By: #### M G #### [facility] [address] [place] [address] Phosphate [Mass/Vol] 3.2 mg/dL Normal 2.5 - 4.9 [facility] Comment on above: Result Comment: The performance characteristics of phosphorus testing in heparinized plasma have been validated by the individual laboratory site where testing is performed. Testing on heparinized plasma is not approved by the FDA; however, such approval is not necessary. Performed By: #### M G #### [facility] [address] [place] [address] Potassium [Moles/Vol] 4.3 mmol/L Normal 3.5 - 5.3 [facility] Comment on above: Performed By: #### M G #### [facility] [address] [place] [address] Sodium [Moles/Vol] 136 mmol/L Normal 136 - 145 [facility] Comment on above: Performed By: #### M G #### [facility] [address] [place] [address] Urea nitrogen [Mass/Vol] 24 mg/dL High 6 - 23 [facility] Comment on above: Performed By: #### M G #### [facility] [address] [place] [address] CBC AND DIFFERENTIALon 06-02 % AUTOMATED IMMATURE GRAN 1.4 % High 0.0 - 0.9 [facility] Comment on above: Result Comment: Shante ture Granulocyte Count (IG) includes promyelocytes, myelocytes and metamyelocytes but does not include bands. Percent differential counts (%) should be interpreted in the context of the absolute cell counts (cells/L). Performed By: #### C BCDF #### [facility] [address] [place] [address] Basophils (Bld) [#/Vol] 0.09 10*3/uL Normal 0.00 - 0.10 [facility] Comment on above: Performed By: #### C BCDF #### [facility] [address] [place] [address] Basophils/100 WBC (Bld) 0.9 % Normal 0.0 - 2.0 [facility] Comment on above: Performed By: #### C BCDF #### [facility] [address] [place] [address] Eosinophils (Bld) [#/Vol] 0.17 10*3/uL Normal 0.00 - 0.40 [facility] Comment on above: Performed By: #### C BCDF #### [facility] [address] [place] [address] Eosinophils/100 WBC (Bld) 1.7 % Normal 0.0 - 6.0 [facility] Comment on above: Performed By: #### C BCDF #### [facility] [address] [place] [address] Erythrocyte distribution width (RBC) [Ratio] 13.3 % Normal 11.5 - 14.5 [facility] Comment on above: Performed By: #### C BCDF #### [facility] [address] [place] [address] Hematocrit (Bld) [Volume fraction] 57.1 % High 41.0 - 52.0 [facility] Comment on above: Performed By: #### C BCDF #### [facility] [address] [place] [address] Hemoglobin (Bld) [Mass/Vol] 18.5 g/dL High 13.5 - 17.5 [facility] Comment on above: Performed By: #### C BCDF #### [facility] [address] [place] [address] Lymphocytes (Bld) [#/Vol] 1.09 10*3/uL Normal 0.80 - 3.00 [facility] Comment on above: Performed By: #### C BCDF #### [facility] [address] [place] [address] Lymphocytes/100 WBC (Bld) 11.2 % Normal 13.0 - 44.0 [facility] Comment on above: Performed By: #### C BCDF #### [facility] [address] [place] [address] MCHC (RBC) [Mass/Vol] 32.4 g/dL Normal 32.0 - 36.0 [facility] Comment on above: Performed By: #### C BCDF #### [facility] [address] [place] [address] MCV (RBC) [Entitic vol] 103 fL High 80 - 100 [facility] Comment on above: Performed By: #### C BCDF #### [facility] [address] [place] [address] Monocytes (Bld) [#/Vol] 0.92 10*3/uL High 0.05 - 0.80 [facility] Comment on above: Performed By: #### C BCDF #### [facility] [address] [place] [address] Monocytes/100 WBC (Bld) 9.4 % Normal 2.0 - 10.0 [facility] Comment on above: Performed By: #### C BCDF #### [facility] [address] [place] [address] Neutrophils (Bld) [#/Vol] 7.36 10*3/uL High 1.60 - 5.50 [facility] Comment on above: Performed By: #### C BCDF #### [facility] [address] [place] [address] Neutrophils/100 WBC (Bld) 75.4 % Normal 40.0 - 80.0 [facility] Comment on above: Performed By: #### C BCDF #### [facility] [address] [place] [address] Nucleated RBC/100 WBC (Bld) [Ratio] 0.0 /100 WBC Normal 0.0-0.0 [facility] Comment on above: Performed By: #### C BCDF #### [facility] [address] [place] [address] Platelets (Bld) [#/Vol] 137 10*3/uL Low 150 - 450 [facility] Comment on above: Performed By: #### C BCDF #### [facility] [address] [place] [address] RBC (Bld) [#/Vol] 5.56 x10E12/L Normal 4.50 - 5.90 [facility] Comment on above: Performed By: #### C BCDF #### [facility] [address] [place] [address] WBC (Bld) [#/Vol] 9.8 10*3/uL Normal 4.4 - 11.3 [facility] Comment on above: Performed By: #### C BCDF #### [facility] [address] [place] [address] Daily Progress Note - Psychi atryon 06-03-2019 Daily Progress Note - Psychiatry Subjective Data: BEAR SHINE is a 69 year old Male who is Hospital Day # 3. Pt was awake, resting in bed, now transferred to EMU with continuous vEEG monitoring. Sitter is at bedside but steps out for privacy. When the pt was asked how he was feeling today, he replied, Ok. Pt said, They're gonna take them [EEG leads] off today. Pt said I figure I got seizures from a TBI that he sustained in [place], but said seizures started 4-5 years after his TBI. Pt said I can sense when they're coming! Pt then exclaimed, I get bad ringing in my ears, and aura, and then BOOM, I'm out! 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 Pt said the date is June 01, 2019 but was able to 'add two' correctly to the date. Pt knows he's at and then chuckled, saying, to check my brain and see if it was working right! Pt denies SI/HI/AVH and when asked about anxiety and depression, the pt replied, I feel pretty good, now that I'm making friends here. Pt said that things have been hard at home recently as he's had no visitors and then said his [employer] stopped coming d/t coronavirus pandemic concerns. Pt said he f/u with his PTSD psychiatrist, Dr. Manzanares, and said he can call him and said that he's supposed to also start classes for his PTSD. Pt said he knows Prazosin was stopped but is wondering about taking it again, to help with his nightmares. Pt denies issues with appetite, bladder/bowel movements and reports his last BM was last evening. Pt said he slept well last night. Pt said staff and treatment teams are treating him really well on this admission. Objective: Objective Information: T PRBPSpO2 [id number]/7991% Date/Time06/01 20: 21: 21: 21: 21:00 Range(35.5C - 36.9C ) (53 - 56 ) (18 - 22 ) (125 - 126 )/ (73 - 79 ) (91% - 96% ) Highest temp of 36.9 C was recorded at 06/01 21:00 Pain reported at 06/02 7:23: 9 = Severe Weights 06/01 14:14: Weight in kg (Weight (kg)) 89.8 06/01 14:14: Weight in lbs ((lbs)) 197.9 06/01 14:14: BMI (kg/m2) (BMI (kg/m2)) 38.062 ---- Intake and Output ----- Mn/Dy/Year TimeIntakeOutputNet Jun 02, 2019 10:00 [id number] The Intake and Output Totals for the last 24 hours are: IntakeOutputNet [id number] ---Intake--- Enteral - Oral PO Fluid/Feed (oral): 480 mL ---Output--- Urine Voided (mL): 1125 mL Intake Output Enteral - Oral 480 mL Urine 1125 mL Mental Status Exam: General: Overweight, elderly, white, male, appears stated age, good hygiene Appearance: Short, jacobs/white hair, blue eyes, vEEG leads and mesh netting noted on his head, resting calmly awake in bed, wearing hospital attire, and silver watch noted on left wrist Attitude: Pleasant and Cooperative; Fair eye contact Behavior: Calm, In-Control, Non-Threatening Motor Activity: No PMR, PMA or TD/EPS noted; Gait was not assessed Speech: Garbled at times d/t dentition, minimally spontaneous, fluent, with normal r/r/t/v Mood: Ok Affect: Appropriate and Pleasant; Occasionally joking Thought Process: Organized and Linear; Associations are logical Thought Content: Denies Ideations; Denies paranoid delusions Thought Perception: Denies AVH; Pt doesn't appear internally stimulated Cognition: Alert, oriented x 4/4 (Pt knows Name, Date, Location, Situation- i.e. reason for admission) --No deficits noted. Adequate fund of knowledge. No deficit in recent and remote memory. No deficits in attention, concentration or language. Insight: Fair Judgment: Fair Medications: Continuous Medications ------- No continuous medications are active Scheduled Medications ------- 1. Brimonidine 0.1% Ophthalmic: 1 drop(s) Both Eyes 2 Times a Day 2. Clopidogrel: 75 mg Oral Daily 3. diazePAM (VALIUM): 5 mg Oral Every 8 Hours 4. Docusate 50 mg - Senna 8.6 m tablet(s) Oral At Bedtime 5. Enoxaparin SubCutaneous: 40 mg SubCutaneous Every 24 Hours 6. Erythromycin 0.5% Ophthalmic: 0.5 inch(es) Both Eyes Every 24 Hours 7. Isosorbide Mononitrate Extended Release: 30 mg Oral Daily 8. Ketotifen 0.025% Ophthalmic: 1 drop(s) Both Eyes Every 12 Hours 9. Latanoprost 0.005% Ophthalmic: 1 drop(s) Both Eyes At Bedtime 10. Lidocaine 5% TransDermal: 1 patch TransDermal Every 24 Hours 11. Nicotine 21 mg/ 24 hour TransDermal: 1 patch TransDermal Every 24 Hours 12. PHENobarbital: 97.2 mg Oral 2 Times a Day 13. Sertraline: 100 mg Oral Daily 14. Simvastatin: 20 mg Oral At Bedtime PRN Medications ------- 1. diphenhydrAMINE: 25 mg Oral Every 24 Hours 2. LORazepam Injectable: 2 mg IntraVenous Push Once 3. oxyCODONE Extended Release: 10 mg Oral Every 12 Hours Recent Lab Results: Results: I have reviewed these laboratory results: Phenobarbital Level, Serum Trending View [id number] 08:45:00 01-Jun-2019 21:24:00 Phenobarbital Level, Serum27.7 27.1 Complete Blood Count + Differential Trending View [id number] 06:23:00 01-Jun-2019 21:24:00 White Blood Cell Count9.8 6.3 Nucleated Erythrocyte Count0.0 0.0 Red Blood Cell Count5.56 5.11 HGB18.5 H 16.6 HCT57.1 H 52.2 H WMM748 H 102 H MCHC32.4 31.8 L TXH201 L SEE COMMENT PLATELET CLUMPS PRECLUDE QUANTITATION. PLATELET ESTIMATE APPEARS DECREASED. RDW-CV13.3 13.5 Neutrophil %75.4 64.8 Immature Granulocytes %1.4 H 1.7 H Lymphocyte %11.2 17.7 Monocyte %9.4 11.2 Eosinophil %1.7 3.2 Basophil %0.9 1.4 Neutrophil Count7.36 H 4.09 Lymphocyte Count1.09 1.12 Monocyte Count0.92 H 0.71 Eosinophil Count0.17 0.20 Basophil Count0.09 0.09 Renal Function Panel Trending View [id number] 06:23:00 02-Jun-2019 10:32:00 01-Jun-2019 21:24:00 Glucose, Vojeu213 H 142 H 202 H NA136 139 138 K4.4 4.2 4.3 CL100 102 101 Bicarbonate, Serum28 28 27 Anion Gap, Serum12 13 14 BUN18 13 15 CREAT1.20 1.14 1.28 GFR-Non Frqrkobl00 A >60 55 A GFR- Teemieos59 >60 67 Calcium, Serum9.3 9.1 8.6 Phosphorus, Serum2.9 2.9 2.4 L ALB4.0 4.1 3.8 RBC Morphology 01-Jun-2019 21:24:00 ResultValue Red Blood Cell Morphology SEE COMMENT NO SIGNIFICANT RBC ABNORMALITIES SEEN ON SMEAR REVIEW. Magnesium, Serum 01-Jun-2019 21:24:00 ResultValue Magnesium, Serum 2.02 Keppra, Level 01-Jun-2019 21:24:00 ResultValue Keppra, Level 16 Assessment and Plan: Assessment: Mr. 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 in [place] d/t possible seizure like episodes and further workup. Pt originally went to [facility] with thoughts of suicidal ideation and was then transferred to the [facility] for inpatient psychiatric admission. The pt was on the inpatient psych unit for approximately 4 days when there was concern for possible seizure like episode, thus neurology was consulted and it was recommended the pt transfer to [facility] for further workup, vEEG. From psych CL understanding, the pt is to return to inpatient psychiatry upon completion of neurological workup. The pt has significant PTSD symptoms which makes him a higher risk for suicide, and although he's not actively having acute suicidal thoughts, the pt admits that he was suicidal four days ago, and the plan is for the into rectum to return to the [facility] inpatient psychiatric unit. Psychiatry CL will follow until pt [facility] transferred [facility] and it's pertinent to continue 1:1 sitter and suicide precautions. As of 06/01, the pt was pleasant and cooperative but reports back pain and feeling sleepy this morning, but otherwise indicates he's feeling well. Pt denies concerns for safety as he said he's met some other guys on the [facility] inpatient psych unit, and being around them has been helpful. Pt denies issues with psych regimen. Pt denies SI/HI/AVH. As of 06/02, pt was transferred to EMU for continuos vEEG monitoring. Pt reports feeling well and enjoys social interaction with peers and staff, and reports recent restrictions of no visitors and his [employer] services being held during coronavirus restrictions, likely led to his suicidal thoughts when he initially presented to the [facility]. Pt reports plans to f/u with his outpatient psychiatrist and to eventually also f/u with PTSD classes when coronavirus restrictions are over. Pt denies SI/HI/AVH. IMPRESSION: MDD, Recurrent, Severe, without Psychotic Features PTSD Tobacco Use Disorder, Moderate, In a Controlled Environment Seizure Disorder TBI RECS: --Continue 1:1 Sitter with suicide precautions --Pt is to return to [facility] to inpatient psychiatry, where he was admitted prior to medical transfer --Pt MUST remain in hospital attire but please remove/secure personal belongings from the room; cell phone= OK --Pt LACKS CAPACITY and CANNOT LEAVE AMA; If pt attempts to elope, please call Code Katarina --PRN Code Violets for Agitated, Threatening, and Non-Redirectable behaviors --No EKG could be found in the chart --Continue scheduled Zoloft 100mg by mouth daily --Continue scheduled Valium 10mg by mouth every 8 hours --Continue scheduled NRT TD daily Patch for Nicotine cravings --Non-Pharmacological Management: Please try to reinforce sleep hygiene protocol of: encouraging patient to try to stay awake as much as possible during the day to improve sleep hygiene. Also allow natural light during the day with curtains/blinds open during the day, frequent orientation and attempts to soothing music (from [employer]) etc... to encourage normal sleep/wake cycle --Pt f/u with outpatient psychiatrist, Dr. Manzanares, in [place], [place] --Psychiatry will follow daily; Page [phone] with questions Medication Consent: Medication Consent: NA; consult service. Signature/Cosignature/Att estation: Note Completion: Provider/Team Pager #[phone] Electronic Signatures: Lexie Neal (OLEOMARGARINE MAKER-FRAMING MECHANIC) (Signed 03-Jun-2019 10:12) Authored: Subjective Data, Objective, Assessment and Plan, Medication Consent, Signature/Cosignature/Att estation Last Updated: 03-Jun-2019 10:12 by Lexie Neal (OLEOMARGARINE MAKER-FRAMING MECHANIC) Normal [facility] Daily Progress Note-Epilepsy on 06-03-2019 Daily Progress Note-Epilepsy Service: Epilepsy Subjective Data: BEAR SHINE is a 69 year old Male who is Hospital Day # 3. Objective Data: Objective Information: T PRBPSpO2 [id number]/[id number]% Date/Time06/01 21: 21: 21: 21: 21:00 Range(35.5C - 36.9C ) (53 - 56 ) (18 - 22 ) (125 - 126 )/ (73 - 79 ) (91% - 96% ) Highest temp of 36.9 C was recorded at 06/01 21:00 Pain reported at 06/02 7:23: 9 = Severe Physical Exam: Constitutional: Elderly white man resting in bed in NAD Respiratory/Thorax: Symmetric chest rise Cardiovascular: Regular rate Neurological: Alert, oriented to self, location and time. No nystagmus. Pupils equal and reactive. Motor 5/5 bilateral UE. LE exam deferred due to pain but moving spontaneously. SILT Medication: Medications: Continuous Medications ------- No continuous medications are active Scheduled Medications ------- 1. Brimonidine 0.1% Ophthalmic: 1 drop(s) Both Eyes 2 Times a Day 2. Clopidogrel: 75 mg Oral Daily 3. diazePAM (VALIUM): 5 mg Oral Every 8 Hours 4. Docusate 50 mg - Senna 8.6 m tablet(s) Oral At Bedtime 5. Enoxaparin SubCutaneous: 40 mg SubCutaneous Every 24 Hours 6. Erythromycin 0.5% Ophthalmic: 0.5 inch(es) Both Eyes Every 24 Hours 7. Isosorbide Mononitrate Extended Release: 30 mg Oral Daily 8. Ketotifen 0.025% Ophthalmic: 1 drop(s) Both Eyes Every 12 Hours 9. Latanoprost 0.005% Ophthalmic: 1 drop(s) Both Eyes At Bedtime 10. Lidocaine 5% TransDermal: 1 patch TransDermal Every 24 Hours 11. Nicotine 21 mg/ 24 hour TransDermal: 1 patch TransDermal Every 24 Hours 12. PHENobarbital: 97.2 mg Oral 2 Times a Day 13. Sertraline: 100 mg Oral Daily 14. Simvastatin: 20 mg Oral At Bedtime PRN Medications ------- 1. diphenhydrAMINE: 25 mg Oral Every 24 Hours 2. LORazepam Injectable: 2 mg IntraVenous Push Once 3. oxyCODONE Extended Release: 10 mg Oral Every 12 Hours Recent Lab Results: Results: I have reviewed these laboratory results: Phenobarbital Level, Serum 01-Jun-2019 21:24:00 ResultValue Phenobarbital Level, Serum 27.1 Keppra, Level 01-Jun-2019 21:24:00 ResultValue Keppra, Level 16 Radiology Results: Results: No new imaging Assessment and Plan: Assessment: Mr. Bear Shine is a 69 year old man with seizure disorder, CAD s/p stent x2, depression, and PTSD who presented to Psych ED at the [facility] for concerns of suicidal ideation via thoughts of medication overdose. [facility] were concerned about poly[facility] and consulted Neurology at the [facility] for AED management and concerns of possible seizure. He describes two different seizure semiologies for which he has been on Tiagabine and Phenobarbital with good control. Given questionable spell at the [facility], he was transferred to [facility] for continuous EEG monitoring and further characterization of these events. vEEG 06/01: Normal PDR, no lateralizing signs or epileptiform discharges # Paroxysmal event: - transfer to EMU - vEEG - [facility] Brain at [facility] was unremarkable - continue Phenobarb 97.2 BID - wean Diazepam -> 5mg TID - AED levels therapeutic - 2mg Ativan PRN seizure >3 minutes # Depression/SI: # PTSD: - psych consulted, appreciate recs - 1-1 sitter - no active thoughts of SI - Sertraline 100mg daily # HTN: # CAD: # Stroke prevention: - Isosorbide mononitrate 30mg daily - goal normotension - Plavix 75mg daily - nicotine patch F: PO E: replete as needed N: regular Dvt ppx: lovenox, SCDs GI ppx: not indicated Full Code Signature/Cosignature/Att estation: Note Completion: I am a: Resident/Fellow Attending AttestationI saw and evaluated the patient. I personally obtained the culp and critical portions of the history and physical exam or was physically present for culp and critical portions performed by the resident/fellow. I reviewed the resident/fellows documentation and discussed the patient with the resident/fellow. I agree with the resident/fellows medical decision making as documented in the note. I personally evaluated the patient [id number] Electronic Signatures: Nelsy Le) (Signed 07-Jun-2019 20:20) Authored: Signature/Cosignature/Att estation Co-Signer: Service, Subjective Data, Objective Data, Assessment and Plan, Signature/Cosignature/Att estation Clemente Lopez ( (Resident)) (Signed 03-Jun-2019 08:52) Authored: Service, Subjective Data, Objective Data, Assessment and Plan, Signature/Cosignature/Att estation Last Updated: 07-Jun-2019 20:20 by Nelsy Le) 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 May not drive. Weight-bearing Instructions: weight-bearing as tolerated. Diet: Dietregular Call Provider If (Homegoing Patients): Acting very sleepy and difficult to awaken. Vomiting (throwing up) and not able to eat or drink for 12 hours. 3 or more loose, watery bowel movements in 24 hours (diarrhea). Any new concerning symptoms. Epilepsy/Seizure: Epilepsy, Chronic: Epilepsy, Chronic: yes Was Medication Adherence Assessed: yes; You must take your seizure medicine(s) as prescribed. If you have problems with your seizure medicine(s) or confusion about the instructions, please notify your Physician SAMEER. Were AED Levels Checked: yes Was the AED Treatment Plan Changed (eg. increased dose): yes Change in Treatment Plan: Weaned Keppra and Tiagabine Were AED Side Effects and Important Drug-Drug Interactions Reviewed with the Patient/Next of Kin: yes Were Seizure Triggers and Lifestyle Precautions Discussed with the Patient/Next of Kin: yes; Some people with seizures may notice that their seizures are triggered by specific things. Please be aware of seizure triggers and try to decrease or eliminate exposure to them. Common seizure triggers include but are not limited to: lack of sleep, alcohol use, flashing lights, and high stress. 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 Please follow up with your mental healthcare provider. Placed on AEDs by prior epileptologist Medication Instruction: You should continue taking the Anti Epileptic medication as it is beneficial for its mood stabilizing properties. Please follow up with your mental healthcare provider. Patient Suffer from a Mood or Anxiety Disorder: yes Patient Have a Mental Healthcare Specialist: yes Patient/Next of Kin Received Education on the Following Topics: stress reduction/trigger identification, safety/injury prevention Seizure Instructions: Seizure Instruct1: Please keep a seizure/event diary (including seizure/event triggers) and bring it with you to your next outpatient appointment. Seizure Instruct2: Please practice good sleep hygiene, including maintaining a regular sleep and wake time, not watching television or using electronic devices in bed, not working in bed, and sleeping in a dark environment. Seizure Instruct3: Please observe seizure precautions to ensure safety: Do Not drive, Do Not operate heavy machinery, Do Not swim unsupervised, shower rather than bathe, be cautious with hot or heavy objects, do not perform any activities at heights such as on a ladder, and be cautious during any activity that could cause you bodily harm should you have a seizure during it. Seizure Instruct4: Please call the Epilepsy Clinic at should you have any follow up questions after discharge from the hospital. Hospital Course (Home Care/Gold Form): Hospital Course: Hospital Course: include significant abnormal lab values Mr. Bear Shine is a 69 year old man with seizure disorder, CAD s/p stent x2, depression, and PTSD who presented to Psych ED at the [facility] for concerns of suicidal ideation via thoughts of medication overdose. [facility] were concerned about polypharmacy and consulted [facility] for AED management and concerns of possible seizure. He describes two different seizure semiologies for which he has been on Tiagabine and Phenobarbital with good control. Given questionable spell at the [facility], he was transferred to [facility] for continuous EEG monitoring and further characterization of these events. vEEG with normal PDR, no lateralizing signs or epileptiform discharges. He was weaned off of Keppra and Diazepam without changes in his EEG. He did not have any clinical nor any electrographic activity concerning for seizures He remains on Phenobarbital 97.2mg BID. He remained medically and clinically stable and was safe for transfer back to the [facility]. Ophthalmology was consulted while here for allergic conjunctivitis, attributed to brimonidine. 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 Infectious Disease: PPD Statusnot given MRSAno VREno C. Diffno Other Resistant Organismno Isolation Typenone Provider FINAL REVIEW of Orders: Final Review: Final Review of Medication Reconciliation and Orders Completedby Physician Reviewing ProviderJemal Alcala MD (Resident) at 09-Jun-2019 13:08:53 Appointments: Follow-Up Appointment 01: Physician/Dept/ServiceDr. Fran Anton Ophthalmolgy Scheduled Date/[id number] 15:00 [place] [address] Phone [phone] Follow-Up Appointment 02: Physician/Dept/Yashira crespo Call to Schedule inOffice requests to call you directly to [place] [address] Phone [phone], Ext [phone] CommentsThe office will call you directly with an appointment date/time. If there is no contact from the office within 5 days, please call the number listed. Electronic Signatures: Peng Man (PT ACC REP) (Signed 03-Jun-2019 14:20) Authored: Appointments Lyndsay Noyola (PT ACC REP) (Signed 08-Jun-2019 09:47) Authored: Appointments Clemente Lopez (DO (Resident)) (Signed 03-Jun-2019 09:00) Authored: Discharge Orders, Epilepsy/Seizure, Hospital Course (Home Care/Gold Form), Provider FINAL REVIEW of Orders, Gold Form - Television Antenna Installer Summary Jemal Alcala (Resident)) (Signed 09-Jun-2019 13:09) Authored: Discharge Orders, Hospital Course (Home Care/Gold Form), Provider FINAL REVIEW of Orders Rosi Barnes (PT ACC REP) (Signed 07-Jun-2019 09:50) Authored: Appointments Last Updated: 09-Jun-2019 13:09 by Jemal Alcala (Resident)) Normal [facility] PHENOBARBITALon 06-03-2019 Phenobarbital [Mass/Vol] 27.7 ug/mL Normal 10.0 - 40.0 [facility] Comment on above: Performed By: #### M G #### [facility] [address] [place] [address] RENAL FUNCTION PANELon 06-02 Albumin [Mass/Vol] 4.0 g/dL Normal 3.4 - 5.0 [facility] Comment on above: Performed By: #### C BCDF #### [facility] [address] [place] [address] Anion gap [Moles/Vol] 12 mmol/L Normal 10 - 20 [facility] Comment on above: Performed By: #### C BCDF #### [facility] [address] [place] [address] Calcium [Mass/Vol] 9.3 mg/dL Normal 8.6 - 10.6 [facility] Comment on above: Performed By: #### C BCDF #### [facility] [address] [place] [address] Chloride [Moles/Vol] 100 mmol/L Normal 98 - 107 [facility] Comment on above: Performed By: #### C BCDF #### [facility] [address] [place] [address] Creatinine [Mass/Vol] 1.20 mg/dL Normal 0.50 - 1.30 [facility] Comment on above: Performed By: #### C BCDF #### [facility] [address] [place] [address] GFR- AM. 73 mL/min/1.73m2 Normal >60 [facility] Comment on above: Result Comment: CALC ULATIONS OF ESTIMATED GFR ARE PERFORMED USING THE MDRD STUDY EQUATION FOR THE IDMS-TRACEABLE CREATININE METHODS. CLIN CHEM 2007;53:766-72 Performed By: #### C BCDF #### [facility] [address] [place] [address] GFR-NON AM. 60 mL/min/1.73m2 Abnormal >60 [facility] Comment on above: Performed By: #### C BCDF #### [facility] [address] [place] [address] Glucose [Mass/Vol] 119 mg/dL High 74 - 99 [facility] Comment on above: Performed By: #### C BCDF #### [facility] [address] [place] [address] HCO3 (Bld) [Moles/Vol] 28 mmol/L Normal 21 - 32 [facility] Comment on above: Performed By: #### C BCDF #### [facility] [address] [place] [address] Phosphate [Mass/Vol] 2.9 mg/dL Normal 2.5 - 4.9 [facility] Comment on above: Result Comment: The performance characteristics of phosphorus testing in heparinized plasma have been validated by the individual laboratory site where testing is performed. Testing on heparinized plasma is not approved by the FDA; however, such approval is not necessary. Performed By: #### C BCDF #### [facility] [address] [place] [address] Potassium [Moles/Vol] 4.4 mmol/L Normal 3.5 - 5.3 [facility] Comment on above: Performed By: #### C BCDF #### [facility] [address] [place] [address] Sodium [Moles/Vol] 136 mmol/L Normal 136 - 145 [facility] Comment on above: Performed By: #### C BCDF #### [facility] [address] [place] [address] Urea nitrogen [Mass/Vol] 18 mg/dL Normal 6 - 23 [facility] Comment on above: Performed By: #### C BCDF #### [facility] [address] [place] [address] CBC AND DIFFERENTIALon 06-01 % AUTOMATED IMMATURE GRAN 1.7 % High 0.0 - 0.9 [facility] Comment on above: Result Comment: Shante ture Granulocyte Count (IG) includes promyelocytes, myelocytes and metamyelocytes but does not include bands. Percent differential counts (%) should be interpreted in the context of the absolute cell counts (cells/L). Performed By: #### M G #### [facility] [address] [place] [address] Basophils (Bld) [#/Vol] 0.09 10*3/uL Normal 0.00 - 0.10 [facility] Comment on above: Result Comment: Auto mated WBC differential has been confirmed by manual smear. Performed By: #### M G #### [facility] [address] [place] [address] Basophils/100 WBC (Bld) 1.4 % Normal 0.0 - 2.0 [facility] Comment on above: Performed By: #### M G #### [facility] [address] [place] [address] Eosinophils (Bld) [#/Vol] 0.20 10*3/uL Normal 0.00 - 0.40 [facility] Comment on above: Performed By: #### M G #### [facility] [address] [place] [address] Eosinophils/100 WBC (Bld) 3.2 % Normal 0.0 - 6.0 [facility] Comment on above: Performed By: #### M G #### [facility] [address] [place] [address] Lymphocytes (Bld) [#/Vol] 1.12 10*3/uL Normal 0.80 - 3.00 [facility] Comment on above: Performed By: #### M G #### [facility] [address] [place] [address] Lymphocytes/100 WBC (Bld) 17.7 % Normal 13.0 - 44.0 [facility] Comment on above: Performed By: #### M G #### [facility] [address] [place] [address] Monocytes (Bld) [#/Vol] 0.71 10*3/uL Normal 0.05 - 0.80 [facility] Comment on above: Performed By: #### M G #### [facility] [address] [place] [address] Monocytes/100 WBC (Bld) 11.2 % Normal 2.0 - 10.0 [facility] Comment on above: Performed By: #### M G #### [facility] [address] [place] [address] Neutrophils (Bld) [#/Vol] 4.09 10*3/uL Normal 1.60 - 5.50 [facility] Comment on above: Performed By: #### M G #### [facility] [address] [place] [address] Neutrophils/100 WBC (Bld) 64.8 % Normal 40.0 - 80.0 [facility] Comment on above: Performed By: #### M G #### [facility] [address] [place] [address] Platelets (Bld) [#/Vol] SEE COMMENT Normal 150 - 450 [facility] Comment on above: Result Comment: PLAT ELET CLUMPS PRECLUDE QUANTITATION. PLATELET ESTIMATE APPEARS DECREASED. Performed By: #### M G #### [facility] [address] [place] [address] Erythrocyte distribution width (RBC) [Ratio] 13.5 % Normal 11.5 - 14.5 [facility] Comment on above: Performed By: #### M G #### [facility] [address] [place] [address] Hematocrit (Bld) [Volume fraction] 52.2 % High 41.0 - 52.0 [facility] Comment on above: Performed By: #### M G #### [facility] [address] [place] [address] Hemoglobin (Bld) [Mass/Vol] 16.6 g/dL Normal 13.5 - 17.5 [facility] Comment on above: Performed By: #### M G #### [facility] [address] [place] [address] MCHC (RBC) [Mass/Vol] 31.8 g/dL Low 32.0 - 36.0 [facility] Comment on above: Performed By: #### M G #### [facility] [address] [place] [address] MCV (RBC) [Entitic vol] 102 fL High 80 - 100 [facility] Comment on above: Performed By: #### M G #### [facility] [address] [place] [address] Nucleated RBC/100 WBC (Bld) [Ratio] 0.0 /100 WBC Normal 0.0-0.0 [facility] Comment on above: Performed By: #### M G #### [facility] [address] [place] [address] RBC (Bld) [#/Vol] 5.11 x10E12/L Normal 4.50 - 5.90 [facility] Comment on above: Performed By: #### M G #### [facility] [address] [place] [address] WBC (Bld) [#/Vol] 6.3 10*3/uL Normal 4.4 - 11.3 [facility] Comment on above: Performed By: #### M G #### [facility] [address] [place] [address] Daily Progress Note - Psychi atryon 06-02-2019 Daily Progress Note - Psychiatry Subjective Data: BEAR SHINE is a 69 year old Male who is Hospital Day # 2. Pt was awake, laying in bed, and vEEG techs were at bedside adjusting leads. Sitter also at bedside but stepped out to allow for privacy. When the pt was asked how he is feeling today, he replied, Ok, but I'm still sleepy. Pt denies SI and when asked what changed he said he met some different guys [on the inpatient psych unit] and this helped him change his thoughts and not feel so alone. Pt said he last had suicidal thoughts prior to his [facility] psych admission. Pt denies HI. Pt denies AVH, racing thoughts, and paranoid delusions but he reports occasional confusion/disorientation and fuzzy thinking at times when he's at home. When pt was asked about anxiety and depression the pt replied, I don't have any. Pt denies issues with current psych meds of Zoloft and Valium, and is aware Prazosin was stopped at the [facility]. Pt denies issues with appetite, bladder/bowel movements, and he reports sleeping well overnight. Pt is c/o 8-8.5/10 back pain. Pt also reports staff and treatment teams have been treating him very good on this admission. Objective: Objective Information: T PRBPSpO2 [id number]/8498% Date/Time06/01 6: 6: 6: 6: 6:53 Range(36.1C - 37.6C ) (50 - 59 ) (18 - 20 ) (145 - 150 )/ (77 - 84 ) (95% - 98% ) As of 01-Jun-2019 20:15:00, patient is on 2 L/min of oxygen via nasal cannula; @HS. Highest temp of 37.6 C was recorded at 05/31 15:09 Pain reported at 05/31 23:25: 8 = Severe Weights 05/31 15:29: Weight in kg (Weight (kg)) 96.4 05/31 15:29: Weight in lbs ((lbs)) 212.5 05/31 15:29: BMI (kg/m2) (BMI (kg/m2)) 30.493 ---- Intake and Output ----- Mn/Dy/Year TimeIntakeOutputNet Jun 02, 2019 6:00 am000 Jun 01, 2019 10:00 [id number] The Intake and Output Totals for the last 24 hours are: IntakeOutputNet [id number] ---Intake--- Enteral - Oral PO Fluid/Feed (oral): 720 mL ---Output--- Intake Output Enteral - Oral 720 mL Mental Status Exam: General: Overweight, elderly, white, male, appears stated age, good hygiene Appearance: Short, jacobs/white hair, blue eyes, vEEG leads noted on his head, resting calmly awake in bed, wearing hospital attire, and silver watch noted on left wrist and cane at bedside Attitude: Pleasant and Cooperative; Fair eye contact Behavior: Calm, In-Control, Non-Threatening Motor Activity: Mild PMR noted as pt is feeling sleepy. No PMA or TD/EPS noted; Gait was not assessed Speech: Garbled at times d/t dentition, minimally spontaneous, fluent, with normal r/r/t/v Mood: Ok Affect: Appropriate Thought Process: Organized and Linear; Associations are logical Thought Content: Denies Ideations; Denies paranoid delusions Thought Perception: Denies AVH; Pt doesn't appear internally stimulated Cognition: Alert, oriented x 4/4 (Pt knows Name, Date, Location, Situation- i.e. reason for admission) --No deficits noted. Adequate fund of knowledge. No deficit in recent and remote memory. No deficits in attention, concentration or language. Insight: Fair Judgment: Fair Medications: Continuous Medications ------- No continuous medications are active Scheduled Medications ------- 1. Brimonidine 0.2% Ophthalmic: 1 drop(s) Both Eyes 2 Times a Day 2. Clopidogrel: 75 mg Oral Daily 3. diazePAM (VALIUM): 10 mg Oral Every 8 Hours 4. Docusate 50 mg - Senna 8.6 m tablet(s) Oral At Bedtime 5. Enoxaparin SubCutaneous: 40 mg SubCutaneous Every 24 Hours 6. Erythromycin 0.5% Ophthalmic: 0.5 inch(es) Both Eyes Every 24 Hours 7. Isosorbide Mononitrate Extended Release: 30 mg Oral Daily 8. Latanoprost 0.005% Ophthalmic: 1 drop(s) Both Eyes At Bedtime 9. levETIRAcetam (KEPPRA): 500 mg Oral 2 Times a Day 10. Lidocaine 5% TransDermal: 1 patch TransDermal Every 24 Hours 11. Nicotine 21 mg/ 24 hour TransDermal: 1 patch TransDermal Every 24 Hours 12. PHENobarbital: 97.2 mg Oral 2 Times a Day 13. Sertraline: 100 mg Oral Daily 14. Simvastatin: 20 mg Oral At Bedtime PRN Medications ------- 1. LORazepam Injectable: 2 mg IntraVenous Push Once 2. oxyCODONE Extended Release: 10 mg Oral Every 12 Hours Recent Lab Results: Results: I have reviewed these laboratory results: Complete Blood Count + Differential 01-Jun-2019 21:24:00 ResultValue White Blood Cell Count 6.3 Nucleated Erythrocyte Count 0.0 Red Blood Cell Count 5.11 HGB 16.6 HCT 52.2 H MCV 102 H MCHC 31.8 L PLT SEE COMMENT PLATELET CLUMPS PRECLUDE QUANTITATION. PLATELET ESTIMATE APPEARS DECREASED. RDW-CV 13.5 Neutrophil % 64.8 Immature Granulocytes % 1.7 H Lymphocyte % 17.7 Monocyte % 11.2 Eosinophil % 3.2 Basophil % 1.4 Neutrophil Count 4.09 Lymphocyte Count 1.12 Monocyte Count 0.71 Eosinophil Count 0.20 Basophil Count 0.09 Renal Function Panel 01-Jun-2019 21:24:00 ResultValue Glucose, Serum 202 H NA 138 K 4.3 CL 101 Bicarbonate, Serum 27 Anion Gap, Serum 14 BUN 15 CREAT 1.28 GFR-Non 55 A GFR- 67 Calcium, Serum 8.6 Phosphorus, Serum 2.4 L ALB 3.8 RBC Morphology 01-Jun-2019 21:24:00 ResultValue Red Blood Cell Morphology SEE COMMENT NO SIGNIFICANT RBC ABNORMALITIES SEEN ON SMEAR REVIEW. Magnesium, Serum 01-Jun-2019 21:24:00 ResultValue Magnesium, Serum 2.02 Phenobarbital Level, Serum 01-Jun-2019 21:24:00 ResultValue Phenobarbital Level, Serum 27.1 Keppra, Level 01-Jun-2019 21:24:00 ResultValue Keppra, Level 16 Assessment and Plan: Assessment: Mr. 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 in [place] d/t possible seizure like episodes and further workup. Pt originally went to [facility] with thoughts of suicidal ideation and was then transferred to the [facility] for inpatient psychiatric admission. The pt was on the inpatient psych unit for approximately 4 days when there was concern for possible seizure like episode, thus neurology was consulted and it was recommended the pt transfer to [facility] for further workup, vEEG. From psych CL understanding, the pt is to return to inpatient psychiatry upon completion of neurological workup. The pt has significant PTSD symptoms which makes him a higher risk for suicide, and although he's not actively having acute suicidal thoughts, the pt admits that he was suicidal four days ago, and the plan is for the into rectum to return to the [facility] inpatient psychiatric unit. Psychiatry CL will follow until pt is transferred back to [facility] and it's pertinent to continue 1:1 sitter and suicide precautions. As of 06/01, the pt was pleasant and cooperative but reports back pain and feeling sleepy this morning, but otherwise indicates he's feeling well. Pt denies concerns for safety as he said he's met some other guys on the [facility] inpatient psych unit, and being around them has been helpful. Pt denies issues with psych regimen. Pt denies SI/HI/AVH. IMPRESSION: MDD, Recurrent, Severe, without Psychotic Features PTSD Tobacco Use Disorder, Moderate, In a Controlled Environment Seizure Disorder TBI RECS: --Continue 1:1 Sitter with suicide precautions --Pt is to return to [facility] to inpatient psychiatry, where he was admitted prior to medical transfer --Pt MUST remain in hospital attire but please remove/secure personal belongings from the room; cell phone= OK --Pt LACKS CAPACITY and CANNOT LEAVE AMA; If pt attempts to elope, please call Code Katarina --PRN Code Kwaku for Agitated, Threatening, and Non-Redirectable behaviors --No EKG could be found in the chart --Continue scheduled Zoloft 100mg by mouth daily --Continue scheduled Valium 10mg by mouth every 8 hours --Continue scheduled NRT TD daily Patch for Nicotine cravings --Non-Pharmacological Management: Please try to reinforce sleep hygiene protocol of: encouraging patient to try to stay awake as much as possible during the day to improve sleep hygiene. Also allow natural light during the day with curtains/blinds open during the day, frequent orientation and attempts to soothing music (from [employer]) etc... to encourage normal sleep/wake cycle --Pt f/u with outpatient psychiatrist, Dr. Manzanares, in [place], [place] --Psychiatry will follow daily; Page [phone] with questions Medication Consent: Medication Consent: NA; consult service. Signature/Cosignature/Att estation: Note Completion: Provider/Team Pager #[phone] Electronic Signatures: Lexie Neal (OLEOMARGARINE MAKER[employer]ING MECHANIC) (Signed 02-Jun-2019 10:30) Authored: Subjective Data, Objective, Assessment and Plan, Medication Consent, Signature/Cosignature/Att estation Last Updated: 02-Jun-2019 10:30 by Lexie Neal (OLEOMARGARINE MAKER[employer]FRAMING MECHANIC) Normal [facility] Daily Progress Note-Epilepsy on 06-02-2019 Daily Progress Note-Epilepsy Service: Epilepsy Subjective Data: BEAR SHINE is a 69 year old Male who is Hospital Day # 2. Patient seen and examined this AM. Per patient and RN, no acute events overnight. Objective Data: Objective Information: T PRBPSpO2 [id number]/8498% Date/Time06/01 6:5306/01 6:5306/01 6:5306/01 6:5306/01 6:53 Range(36.1C - 37.6C ) (50 - 59 ) (18 - 20 ) (145 - 150 )/ (77 - 84 ) (95% - 98% ) As of 01-Jun-2019 20:15:00, patient is on 2 L/min of oxygen via nasal cannula; @HS. Highest temp of 37.6 C was recorded at 05/31 15:09 Pain reported at 05/31 23:25: 8 = Severe Physical Exam: Constitutional: Elderly white man, drowsy from lack of sleep. Respiratory/Thorax: Symmetric chest rise Cardiovascular: Regular rate Neurological: Alert, oriented to self, location and time. No nystagmus. Pupils equal and reactive. Motor 5/5 bilateral UE. LE exam deferred due to pain but moving spontaneously. SILT Medication: Medications: Continuous Medications ------- No continuous medications are active Scheduled Medications ------- 1. Brimonidine 0.2% Ophthalmic: 1 drop(s) Both Eyes 2 Times a Day 2. Clopidogrel: 75 mg Oral Daily 3. diazePAM (VALIUM): 10 mg Oral Every 8 Hours 4. Docusate 50 mg - Senna 8.6 m tablet(s) Oral At Bedtime 5. Enoxaparin SubCutaneous: 40 mg SubCutaneous Every 24 Hours 6. Erythromycin 0.5% Ophthalmic: 0.5 inch(es) Both Eyes Every 24 Hours 7. Isosorbide Mononitrate Extended Release: 30 mg Oral Daily 8. Latanoprost 0.005% Ophthalmic: 1 drop(s) Both Eyes At Bedtime 9. levETIRAcetam (KEPPRA): 500 mg Oral 2 Times a Day 10. Lidocaine 5% TransDermal: 1 patch TransDermal Every 24 Hours 11. Nicotine 21 mg/ 24 hour TransDermal: 1 patch TransDermal Every 24 Hours 12. PHENobarbital: 97.2 mg Oral 2 Times a Day 13. Sertraline: 100 mg Oral Daily 14. Simvastatin: 20 mg Oral At Bedtime PRN Medications ------- 1. LORazepam Injectable: 2 mg IntraVenous Push Once 2. oxyCODONE Extended Release: 10 mg Oral Every 12 Hours Recent Lab Results: Results: I have reviewed these laboratory results: Phenobarbital Level, Serum 01-Jun-2019 21:24:00 ResultValue Phenobarbital Level, Serum 27.1 Keppra, Level 01-Jun-2019 21:24:00 ResultValue Keppra, Level 16 Radiology Results: Results: No new imaging Assessment and Plan: Assessment: Mr. Bear Shine is a 69 year old man with seizure disorder, CAD s/p stent x2, depression, and PTSD who presented to Psych ED at the [facility] for concerns of suicidal ideation via thoughts of medication overdose. [facility] team were concerned about polypharmacy and consulted Neurology at the [facility] for AED management and concerns of possible seizure. He describes two different seizure semiologies for which he has been on Tiagabine and Phenobarbital with good control. Given questionable spell at the [facility], he was transferred to [facility] for continuous EEG monitoring and further characterization of these events. # Paroxysmal event: - transfer to [facility] - vEEG - [facility] Brain at [facility] was unremarkable - continue Phenobarb 97.2 BID - plan to wean Diazepam starting tomorrow -> 5mg TID - d/c Keppra today - d/c Tiagabine 05/31 - AED levels therapeutic - 2mg Ativan PRN seizure >3 minutes # Depression/SI: # PTSD: - psych consulted, appreciate recs - 1-1 sitter - no active thoughts of SI - Sertraline 100mg daily # HTN: # CAD: # Stroke prevention: - Isosorbide mononitrate 30mg daily - goal normotension - Plavix 75mg daily - nicotine patch F: PO E: replete as needed N: regular Dvt ppx: lovenox, SCDs GI ppx: not indicated Full Code Signature/Cosignature/Att estation: Note Completion: I am a: Resident/Fellow Attending AttestationI saw and evaluated the patient. I personally obtained the culp and critical portions of the history and physical exam or was physically present for culp and critical portions performed by the resident/fellow. I reviewed the resident/fellows documentation and discussed the patient with the resident/fellow. I agree with the resident/fellows medical decision making as documented in the note. I personally evaluated the patient [id number] Electronic Signatures: Nelsy Le) (Signed 07-Jun-2019 20:17) Authored: Signature/Cosignature/Att estation Co-Signer: Service, Subjective Data, Objective Data, Assessment and Plan, Signature/Cosignature/Att estation Clemente Lopez ( (Resident)) (Signed 02-Jun-2019 12:42) Authored: Service, Subjective Data, Objective Data, Assessment and Plan, Signature/Cosignature/Att estation Last Updated: 07-Jun-2019 20:17 by Nelsy Le) Normal [facility] KEPPRAon 06-02-2019 KEPPRA 16 ug/mL Normal 10 - 40 [facility] Comment on above: Result Comment: Briv aracetam may falsely increase the amount of levetiracetam measured by this method. Serum levels should be confirmed by a valid chromatographic method for patients with these drugs co-present in circulation. Performed By: #### K EPPR ####[id number] [place] [address] MAGNESIUMon 06-02-2019 Magnesium [Mass/Vol] 2.02 mg/dL Normal 1.60 - 2.40 [facility] Comment on above: Performed By: #### M G #### [facility] [address] [place] [address] PHENOBARBITALon 06-02-2019 Phenobarbital [Mass/Vol] 27.1 ug/mL Normal 10.0 - 40.0 [facility] Comment on above: Performed By: #### C BCDF #### [facility] [address] [place] [address] RED CELL MORPHOLOGYon 2019 RBC morphology finding Nom (Bld) SEE COMMENT Normal [facility] Comment on above: Result Comment: NO S IGNIFICANT RBC ABNORMALITIES SEEN ON SMEAR REVIEW. Performed By: #### M ORP2 #### [facility] [address] [place] [address] RENAL FUNCTION PANELon 06-01 Albumin [Mass/Vol] 4.1 g/dL Normal 3.4 - 5.0 [facility] Comment on above: Performed By: #### C BCDF #### [facility] [address] [place] [address] Anion gap [Moles/Vol] 13 mmol/L Normal 10 - 20 [facility] Comment on above: Performed By: #### C BCDF #### [facility] [address] [place] [address] Calcium [Mass/Vol] 9.1 mg/dL Normal 8.6 - 10.6 [facility] Comment on above: Performed By: #### C BCDF #### [facility] [address] [place] [address] Chloride [Moles/Vol] 102 mmol/L Normal 98 - 107 [facility] Comment on above: Performed By: #### C BCDF #### [facility] [address] [place] [address] Creatinine [Mass/Vol] 1.14 mg/dL Normal 0.50 - 1.30 [facility] Comment on above: Performed By: #### C BCDF #### [facility] [address] [place] [address] GFR- AM. >60 Normal >60 [facility] [place] Comment on above: Result Comment: CALC ULATIONS OF ESTIMATED GFR ARE PERFORMED USING THE MDRD STUDY EQUATION FOR THE IDMS-TRACEABLE CREATININE METHODS. CLIN CHEM 2007;53:766-72 Performed By: #### C BCDF #### [facility] [address] [place] [address] GFR-NON AM. >60 Normal >60 [facility] Comment on above: Performed By: #### C BCDF #### [place] [id number] [place] [address] Glucose [Mass/Vol] 142 mg/dL High 74 - 99 [facility] Comment on above: Performed By: #### C BCDF #### [place] [id number] [place] [address] HCO3 (Bld) [Moles/Vol] 28 mmol/L Normal 21 - 32 [facility] Comment on above: Performed By: #### C BCDF #### [facility] [address] [place] [address] Phosphate [Mass/Vol] 2.9 mg/dL Normal 2.5 - 4.9 [facility] Comment on above: Result Comment: The performance characteristics of phosphorus testing in heparinized plasma have been validated by the individual laboratory site where testing is performed. Testing on heparinized plasma is not approved by the FDA; however, such approval is not necessary. Performed By: #### C BCDF #### [place] [id number] [place] [address] Potassium [Moles/Vol] 4.2 mmol/L Normal 3.5 - 5.3 [facility] Comment on above: Performed By: #### C BCDF #### [facility] [id number] [place] [address] Sodium [Moles/Vol] 139 mmol/L Normal 136 - 145 [facility] Comment on above: Performed By: #### C BCDF #### [facility] [address] [place] [address] Urea nitrogen [Mass/Vol] 13 mg/dL Normal 6 - 23 [facility] Comment on above: Performed By: #### C BCDF #### [facility] [id number] [place] [address] Albumin [Mass/Vol] 3.8 g/dL Normal 3.4 - 5.0 [facility] Comment on above: Performed By: #### R ENAL ####[id number] [place] [address] Anion gap [Moles/Vol] 14 mmol/L Normal 10 - 20 [facility] Comment on above: Performed By: #### R ENAL ####[id number] [place] [address] Calcium [Mass/Vol] 8.6 mg/dL Normal 8.6 - 10.6 [facility] Comment on above: Performed By: #### R ENAL ####[id number] [place] [address] Chloride [Moles/Vol] 101 mmol/L Normal 98 - 107 [facility] Comment on above: Performed By: #### R ENAL ####[id number] [place] [address] Creatinine [Mass/Vol] 1.28 mg/dL Normal 0.50 - 1.30 [facility] Comment on above: Performed By: #### R ENAL ####[id number] [place] [address] GFR- AM. 67 mL/min/1.73m2 Normal >60 [facility] Comment on above: Result Comment: CALC ULATIONS OF ESTIMATED GFR ARE PERFORMED USING THE MDRD STUDY EQUATION FOR THE IDMS-TRACEABLE CREATININE METHODS. CLIN CHEM 2007;53:766-72 Performed By: #### R ENAL ####[id number] [place] [address] GFR-NON AM. 55 mL/min/1.73m2 Abnormal >60 [facility] Comment on above: Performed By: #### R ENAL ####[id number] [place] [address] Glucose [Mass/Vol] 202 mg/dL High 74 - 99 [facility] Comment on above: Performed By: #### R ENAL ####[id number] [place] [address] HCO3 (Bld) [Moles/Vol] 27 mmol/L Normal 21 - 32 [facility] Comment on above: Performed By: #### R ENAL ####[id number] [place] [address] Phosphate [Mass/Vol] 2.4 mg/dL Low 2.5 - 4.9 [facility] Comment on above: Result Comment: The performance characteristics of phosphorus testing in heparinized plasma have been validated by the individual laboratory site where testing is performed. Testing on heparinized plasma is not approved by the FDA; however, such approval is not necessary. Performed By: #### R ENAL ####[id number] [place] [address] Potassium [Moles/Vol] 4.3 mmol/L Normal 3.5 - 5.3 [facility] Comment on above: Performed By: #### R ENAL ####[id number] [place] [address] Sodium [Moles/Vol] 138 mmol/L Normal 136 - 145 [facility] Comment on above: Performed By: #### R ENAL ####[id number] [place] [address] Urea nitrogen [Mass/Vol] 15 mg/dL Normal 6 - 23 [facility] Comment on above: Performed By: #### R ENAL ####[id number] [place] [address] Admission Risk Screen - Adul ton 06-01-2019 Admission Risk Screen - Adult Patient Verification: New W ID Band Applied in my Departmentyes Patient Identity Verified Bypatient ID Band FULL Name, include Middle, spelling matches patient's ID used for verificationyes ID Band Matches Patient ID used for Verficationyes ID Band MRN Matches EMR MRNyes Visitor Restriction: Coronavirus Visitor Restriction: Reasonable restrictions to in-person visitors will be observed due to current coronavirus pandemic. Advance Directive: Advance Directive/DNRno Advance Directive Information Giveninformation requested from Social Work Falls Screen: Type of Assessmentadmission Moderate Risk Factorspatient care equipment (scds, ivs, chest tubes, ortega, etc) High Risk Factorsgait instability, recent falls, nursing judgment (specify) Risk for Injury Associated with Fallnone Fall Risk Conclusionhigh falls risk with low risk for associated injury [place] Safety InterventionsWDL *orient to call system *instruct to call for assistance before getting out of bed *non-slip footwear when patient is out of bed *call martin in reach *personal items and telephone in reach *physically safe environment (no spills or clutter) *bed in lowest position with wheels locked *appropriate side rails in place *room/bathroom lighting operational, light cord in reach *appropriate signage on door Fall and Injury Risk Interventionssupervised toileting (mandatory for all high risk patients), exit (bed/chair) alarms (mandatory for all high risk patients), bed alarm - zero scale to ensure bed alarm operation Family Violence Screen: Are you or have you been threatened or abused physically, emotionally, or sexually by anyoneno Do you feel UNSAFE going back to the place where you are livingno Clinical assessment: Are there any apparent signs of injuries/behaviors that could be related to abuse/neglectno Social Service Consult for abuse/neglect needed this visitno Functional Screen: Functional Screen: In the recent/past 2-4 weeks, patient or family have noticedno issues that require a speech/language consult at this time AM-PAC- Basic Mobility/Daily Activity: Patient baseline bedboundno Learning Assessment (Patient): Patient is Able to be Assessed for Learningyes Factors Influencing Readiness to Learnanxiety; motivation to learn; pain Factors that Impact Ability to Learnvisual problems Devices/Methods Used to Communicateglasses Learning Preferencesverbal instruction; skill demonstration; written material Cultural Considerationsnone Developmental Considerationsnone Sikh Considerationsnone Learning Assessment (Other Learner): Other learner availableno Suicide/Depression Screen: During the past month, have you often been bothered by feeling down, depressed or hopelessyes During the past month, have you often had little interest or pleasure in doing thingsyes Have you had any thoughts of harming yourselfyes Have you had any thoughts of harming anyone elseno Adult Nutrition Screen: Have you recently lost weight without tryingno Have you been eating poorly because of a decreased appetiteno Malnutrition Screening Tool Score0 Malnutrition Screening Tool RiskMST = 0 or 1 Not at risk. Eating well with little or no weight loss Nutrition Consult needed this visitno Can Patient Participate in Room Serviceyes Patient requires Paper Dishes/Plastic Utensilsyes (sends order) Pain Screen: Pain Scalenumerical 0-10 Pain Scale Educationteaching provided Current Pain Level0 = None Acceptable Pain Level0 = None Expression of Pain (nonverbal)verbalization Chronic Painyes Spiritual Screen: Are there any cultural, spiritual, episcopalian practices/values/needs that are important for us to knowno CAGE: Is this an injured patient at a Trauma Center ([facility]/[place]/ [place]): no Vaccinations: Vaccination - Influenza Vaccination Screen: Is it flu season (between and July 06)Yes Screening for identified contraindications to influenza vaccinationpatient already received vaccine this season Vaccination - Pneumonia Vaccination Screen: Patient has received a previous pneumonia vaccine:yes Alfonso: Skin - Alfonso Scale: Alfonso: Sensory Perception (response to environment)(4) no impairment Alfonso: Moisture (degree skin exposed to moisture)(4) rarely moist Alfonso: Activity (ability to walk)(3) walks occasionally Alfonso: Mobility (amount/control of body movement)(3) slightly limited Alfonso: Nutrition (quality of food intake)(3) adequate Alfonso: Friction and Shear(3) no apparent problem Alfonso: Score20 Significant Indicatiors: Significant Indicators: Complete Pressure Injury: Pressure Injury Present on Admissionno Electronic Signatures: Génesis Stevens (RN) (Signed 01-Jun-2019 15:29) Authored: Admission Risk Screens, Vaccinations, Alfonso, Pressure Injury Last Updated: 02-Jun-2019 14:19 by Yadira Rasmussen (SIRENA) Normal [facility] Consult - Psychiatryon 05-31 Consult - Psychiatry Referral Informatio n: Consult requested by (Attending Name): Nelsy Coles Reason: Siucidal Ideation History of Present Illness: Admission Reason: Seizure workup - vEEG HPI: Mr. 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 here in [place] due to a possible seizure like episode and further workup. He originally went to [facility] with thoughts of suicidal ideation and he was transferred to the [facility] for inpt psych admission. Pt was on inpt psych for approx 4 days and there was concern for possible seizure like episode, neurology was consulted and it was recommended he come to [facility] for further workup, vEEG. Psychiatry attending, [facility] Aminta Rolle[facility]. Per this conversation, we were given the following information: [facility] was [facility] the [facility]. He was discharged today to epilepsy service for further medical management. Diagnoses were unspecified depressive disorder, history of TBI. Admitted 05/26 to their service. Had presented with SI without intention/behavior, had been more depressed for the past month, was having nightmares, walking in his sleep. Has provided inconsistent history in terms of meds (states he was on Xanax, phenobarb, Ativan). He had initially reported stockpiling medications but then changed this over the course of hospitalization. No family hx of mental illness, lives alone, retired. At time of discharge, mental status exam: less depressed, full rnage of affect, speech slurred but coherent. No SI/HI. Notable deficits in longstanding memory. Had an appointment with pain management. Meds on discharge were Valium 10 mg po TID (may be for seizures), Keppra, Sertraline 100 mg po QAM, Phenobarbital, and PRN Oxycodone. Upon meeting with Mr. Shine, he states that he is not actively suicidal at the moment. He states that he did have thoughts of suicide prior to going to the hospital, with plans to overdose on medications that he had at home. He states that he went to the [facility] and informed them about these [facility] He states his brother went and took away his medication pile. He states that during the few days on the inpt psych unit, he noticed significant improvement in his mood, relating this to being back on his medications and being able to interact with other individuals on the unit. He states that he is hopeful for the future. He states that he sleeps well with his current medication regimen. He states his appetite is good. He denies feeling hopeless or helpless at this time. He is future oriented, excited about springtime and being able to walk his dog more and garden more frequently. He states that he is also hoping to get more involved with his advent. He states he was not taking the medications like he should have been. He denies significant anxiety concerns such as excessive worry. He denies psychotic or manic symptoms. He does have significant PTSD symptoms, states that he frequently wakes up at night startled due to nightmares of [place]. He has flashback and is easily startled by loud noises. He states he would even act out dreams and thus him and his used to sleep in different beds. He denies any firearms at the home. Past Psychiatric History: Denies any inpt psych admissions in the past, except for current episode. He denies any suicide attempts, but does have hx of suicidal ideation. He has been on Prazosin and Sertraline. Found that prazosin made him feel odd and thus he stopped taking it. He was also not taking his Sertraline. States that he does see a psychiatrist, Dr. Manzanares in [place]. Family History: Family History: Family History: reviewed and not pertinent to presenting problem Social History: Smoking Status: former smoker Alcohol Use: denies Drug Use: daily Chewing tobacco Social History: He live with his Yorkee in [place]. 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 [employer] (black [employer]) that served in [place], [place], and [place]. Close to his brother, [place], who is very supportive. Mother alive at 91 with no major health problems. Father of cancer. 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 Allergies: Keflex: Swelling/Edema Dilantin: Swelling/Edema, Hives/Urticaria Bee Stings: Swelling/Edema, Hives/Urticaria, Resp Distress sesame oil: Unknown Medications Prior to Admission: brimonidine 0.2% ophthalmic solution: 1 drop(s) to each affected eye 2 times a day clopidogrel 75 mg oral tablet: 1 tab(s) orally once a day diazePAM 10 mg oral tablet: 1 tab(s) orally 3 times a day sennosides-docusate 8.6 mg-50 mg oral tablet: 2 tab(s) orally once a day (at bedtime) isosorbide mononitrate 30 mg oral tablet, extended release: 1 tab(s) orally once a day (in the morning) latanoprost 0.005% ophthalmic solution: 1 drop(s) to each affected eye once a day (in the evening) levETIRAcetam 500 mg oral tablet: 1 tab(s) orally 2 times a day oxyCODONE 10 mg oral tablet, extended release: 1 tab(s) orally every 12 hours, As Needed for pain >6/10 PHENobarbital 97.2 mg oral tablet: 1 tab(s) orally 2 times a day sertraline 100 mg oral tablet: 1 tab(s) orally once a day simvastatin 20 mg oral tablet: 1 tab(s) orally once a day (at bedtime) lidocaine 4% topical cream: Apply topically to affected area every 6 hours, As Needed - for panic attack, for pain. OARRS Review: OARRS checked: yes OARRS Comments: Testosterone, Phenobarbital, Valium and Oxycodone within last [address] Kerry Burger at [facility] Psychiatric Review of Symptoms: Anxiety: PTSD Post Traumatic Stress Disorder: traumatic event, reliving event (nightmares/flashbacks), persistent symptoms of increased arousal, hypervigilance, exaggerated startle response Depression: suicidal thoughts Delirium: negative Psychosis: negative Alee: negative Safety Issues: Not actively suicidal now. No weapons at home. Review of Systems: Constitutional: NEGATIVE: Fever, Chills, Anorexia, Weight Loss, Malaise Eyes: NEGATIVE: Blurry Vision, Drainage, Diploplia, Redness, Vision Loss/ Change ENMT: NEGATIVE: Nasal Discharge, Nasal Congestion, Ear Pain, Mouth Pain, Throat Pain Respiratory: NEGATIVE: Dry Cough, Productive Cough, Hemoptysis, Wheezing, Shortness of Breath Cardiac: NEGATIVE: Chest Pain, Dyspnea on Exertion, Orthopnea, Palpitations, Syncope Gastrointestinal: NEGATIVE: Nausea, Vomiting, Diarrhea, Constipation, Abdominal Pain Genitourinary: NEGATIVE: Discharge, Dysuria, Flank Pain, Frequency, Hematuria Musculoskeletal: NEGATIVE: Decreased ROM, Pain, Swelling, Stiffness, Weakness Neurological: POSITIVE: Seizures Psychiatric: POSITIVE: Suicidal Ideas Skin: NEGATIVE: Mass, Pain, Pruritus, Rash, Ulcer Endocrine: NEGATIVE: Heat Intolerance, Cold Intolerance, Sweat, Polyuria, Thirst Hematologic/Lymph: NEGATIVE: Anemia, Bruising, Easy Bleeding, Night Sweats, Petechiae Allergic/Immunologic: NEGATIVE: Anaphylaxis, Itchy/ Teary Eyes, Itching, Sneezing, Swelling Objective: Objective Information: T PRBPSpO2 [id number]% Date/Time05/31 15: 15: 15: 15: 15:09 Range(37.6C - 37.6C ) (59 - 59 ) (18 - 18 ) (147 - 147 )/ (77 - 77 ) (95% - 95% ) Highest temp of 37.6 C was recorded at 05/31 15:09 Mental Status Exam: General: Appropriately groomed and dressed. EEG leads present on scalp. Appearance: Appears stated age. Elderly male. Somewhat overweight. Attitude: Calm, cooperative. Behavior: Appropriate eye contact. Motor Activity: No agitation or retardation. No EPS/TD. Speech: Regular rate, rhythm, volume and tone, spontaneous, fluent. Mood: Euthymic- states mood is better Affect: Appropriate with full range. Congruent with stated mood. Thought Process: At times tangential and difficult to interrupt and redirect. Thought Content: Does not endorse active current suicidal or homicidal ideation, no delusions elicited. Thought Perception: Does not endorse auditory or visual hallucinations, does not appear to be responding to hallucinatory stimuli. Cognition: Alert, oriented x3. No deficits noted. Adequate fund of knowledge. No deficit in recent and remote memory. No deficits in attention, concentration or language. Knew it was May 2019, thought it was the , but corrected it to .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 Substance: Current or Former Substance Use never: e-Cigarette/Vaping, Alcohol, Street Drugs YES: Cigarette/Tobacco Tobacco Cessation Education (provide if tobacco use within the last 12 mos) patient declined Health Mgmt: Symptoms/Conditions Managed at Homebehavioral health; neurological; chronic pain Behavioral Health Managementmanaged Neurological Managementnot managed Chronic Pain Management Strategiespositioning; heat application; medication therapy; medical liaison Chronic Pain Managementmanaged Relationship/Environ: Primary Source of Support/Comfortsibling(s) Lives Withalone Living Arrangementsapartment Resource/Environmental Concernsnone [facility]tic[facility]ated [facility]; home with help/services Services [facility]; outpatient care Significant IndicatorsComplete Information Review: Allergies, Home Meds and Significant Events have been Reviewed and Verified with Patient/Familyyes ALLERGY, INTOLERANCE, ADVERSE EVENT: Allergies: Keflex: Drug, Swelling/Edema, Active Dilantin: Drug, Swelling/Edema, Hives/Urticaria, Active Bee Stings: Environment, Swelling/Edema, Hives/Urticaria, Resp Distress, Active sesame oil: Food, Unknown, Active Significant Events: 01-Jun-2019 Hyperlipidemia: Past Medical History, Active 01-Jun-2019 Hypertension (HTN): Past Medical History, Active 01-Jun-2019 Coronary Artery Disease (CAD): Past Medical History, Active 01-Jun-2019 Depression: Past Medical History, Active, PTSD 01-Jun-2019 Suicidal precautions: Social/Behavioral, Active Electronic Signatures: Génesis Stevens (RN) (Signed 01-Jun-2019 16:18) Authored: Profile, Additional Information Last Updated: 01-Jun-2019 16:18 by Génesis Stevens (SAVAGE) [facility] Clinical Summary: HMSPatient IDon 09-03-2018 OOP [facility] Work Phone: Clinical Summary: Scanned RO S Summaryon 09-03-2018 endocrine ROS Denies [facility] Work Phone: genitourinary review of systems, E&M Complains [facility] Work Phone: genitourinary system review of systems, comments Frequenent Urination [facility] Work Phone: Lymphocytes (Bld) [#/Vol] Denies [facility] Work Phone: Review of Systems Neurologic comment Seizure [facility] Work Phone: Review of Systems Skin comment Rash,Itching [facility] Work Phone: ROS cardiovascular [facility] Work Phone: ROS ENT comment Impaired Hearing,Dentures [facility] Work Phone: ROS ENT E&M Complains [facility] Work Phone: ROS gastrointestinal E&M Denies [facility] Work Phone: ROS general E&M Denies [facility] Work Phone: ROS Musculoskeletal comments Pain [facility] Work Phone: ROS musculoskeletal E&M Complains [facility] Work Phone: ROS neurological E&M Complains [facility] Work Phone: ROS Psych comment Depression [facility] Work Phone: ROS psychiatric E&M Complains [facility] Work Phone: ROS Pulmonary comment Shortness Of Breat h,Sleep Apnea [facility] Work Phone: ROS pulmonary E&M Complains [facility] Work Phone: ROS skin E&M Complains [facility] Work Phone: Office Visit: New/Est - 1st visit with physician, Rm: 09-03-2018 NEGATED: Highlighted rowCT scan history of the cervical on 07/17/2018 at [facility] Work Phone: NEGATED: Highlighted rowTobacco smoking status NHIS Tobacco smoking status NHIS [facility] Work Phone: Vital Signs Date Time Vital Sign Value Performing Clinician Facility 07-02-2023 20:45-0400 Inhaled oxygen flow rate 2 L/min Dr. Kerry Burger Work Phone: [facility] 07-02-2023 20:42-0400 Body temperature 98.2 [degF] Dr. Kerry Burger Work Phone: [facility] 07-02-2023 20:42-0400 Diastolic blood pressure 95 mm[Hg] Dr. Kerry Burger Work Phone: [facility] 07-02-2023 20:42-0400 Heart rate 68 /min Dr. Kerry Burger Work Phone: [facility] 07-02-2023 20:42-0400 Respiratory rate 18 /min Dr. Kerry Burger Work Phone: [facility] 07-02-2023 20:42-0400 SaO2% (BldA) [Mass fraction] 95 % Dr. Kerry Burger Work Phone: [facility] 07-02-2023 20:42-0400 Systolic blood pressure 167 mm[Hg] Dr. Kerry Burger Work Phone: [facility] 06-26-2023 13:07-0400 Body height [address] Kerry Burger Work Phone: [facility] 06-26-2023 13:07-0400 Body weight 95.[address] Kerry Burger Work Phone: [facility] 06-26-2023 00:37-0400 Body mass index (BMI) [Ratio] 30 kg/m2 Dr. Kerry Burger Work Phone: [facility] 06-25-2023 22:59-0400 Body temperature 97.4 [degF] Dr. Kerry Burger Work Phone: [facility] 06-25-2023 22:59-0400 Diastolic blood pressure 78 mm[Hg] Dr. Kerry Burger Work Phone: [facility] 06-25-2023 22:59-0400 Heart rate 72 /min Dr. Kerry Burger Work Phone: [facility] 06-25-2023 22:59-0400 Respiratory rate 16 /min Dr. Kerry Burger Work Phone: [facility] 06-25-2023 22:59-0400 SaO2% (BldA) [Mass fraction] 97 % Dr. Kerry Burger Work Phone: [facility] 06-25-2023 22:59-0400 Systolic blood pressure 148 mm[Hg] Dr. Kerry Burger Work Phone: [facility] 06-25-2023 21:58-0400 Inhaled oxygen flow rate 2 L/min Dr. Kerry Burger Work Phone: [facility] 06-25-2023 19:16-0400 Body height 177.[address] Kerry Burger Work Phone: [facility] 06-25-2023 14:42-0400 Body temperature 98.6 [degF] Dr. Kerry Burger Work Phone: [facility] 06-25-2023 14:42-0400 Diastolic blood pressure 71 mm[Hg] Dr. Kerry Burger Work Phone: [facility] 06-25-2023 14:42-0400 Heart rate 66 /min Dr. Kerry Burger Work Phone: [facility] 06-25-2023 14:42-0400 Respiratory rate 18 /min Dr. Kerry Burger Work Phone: [facility] 06-25-2023 14:42-0400 SaO2% (BldA) [Mass fraction] 98 % Dr. Kerry Burger Work Phone: [facility] 06-25-2023 14:42-0400 Systolic blood pressure 115 mm[Hg] Dr. Kerry Burger Work Phone: [facility] 06-25-2023 07:44-0400 Inhaled oxygen flow rate 2 L/min Dr. Kerry Burger Work Phone: [facility] 06-25-2023 01:30-0400 Body mass index (BMI) [Ratio] 30.6 kg/m2 Dr. Kerry Burger Work Phone: [facility] 06-25-2023 01:30-0400 Body weight [address] Kerry Burger Work Phone: [facility] 06-22-2023 19:01-0400 Body height 177.[address] Kerry Burger Work Phone: [facility] 06-22-2023 18:42-0400 Body temperature 97.2 [degF] Dr. Kerry Burger Work Phone: [facility] 06-22-2023 18:42-0400 Diastolic blood pressure 62 mm[Hg] Dr. Kerry Burger Work Phone: [facility] 06-22-2023 18:42-0400 Heart rate 63 /min Dr. Kerry Burger Work Phone: [facility] 06-22-2023 18:42-0400 Respiratory rate 16 /min Dr. Kerry Burger Work Phone: [facility] 06-22-2023 18:42-0400 SaO2% (BldA) [Mass fraction] 97 % Dr. Kerry Burger Work Phone: [facility] 06-22-2023 18:42-0400 Systolic blood pressure 123 mm[Hg] Dr. Kerry Burger Work Phone: [facility] 06-22-2023 13:59-0400 Body height 177.[address] Kerry Burger Work Phone: [facility] 06-22-2023 13:59-0400 Body mass index (BMI) [Ratio] 28.8 kg/m2 Dr. Kerry Burger Work Phone: [facility] 06-22-2023 13:59-0400 Body weight [address] Kerry Burger Work Phone: [facility] 05-04-2023 17:13-0500 Respiratory rate 16 /min Dr. Kerry Burger Work Phone: [facility] 05-04-2023 15:57-0500 Diastolic blood pressure 89 mm[Hg] Dr. Kerry Burger Work Phone: [facility] 05-04-2023 15:57-0500 Heart rate 74 /min Dr. Kerry Burger Work Phone: [facility] 05-04-2023 15:57-0500 SaO2% (BldA) [Mass fraction] 96 % Dr. Kerry Burger Work Phone: [facility] 05-04-2023 15:57-0500 Systolic blood pressure 164 mm[Hg] Dr. Kerry Burger Work Phone: [facility] 05-04-2023 15:14-0500 Body mass index (BMI) [Ratio] 30.5 kg/m2 Dr. Kerry Burger Work Phone: [facility] 05-04-2023 15:14-0500 Body temperature 97.4 [degF] Dr. Kerry Burger Work Phone: [facility] 05-04-2023 15:14-0500 Body weight 96.[address] Kerry Burger Work Phone: [facility] 02-02-2023 13:46-0500 Diastolic blood pressure 87 mm[Hg] [facility] 02-02-2023 13:46-0500 Heart rate 62 /min [facility] 02-02-2023 13:46-0500 Respiratory rate 16 /min [facility] 02-02-2023 13:46-0500 SaO2% (BldA) [Mass fraction] 97 % [facility] 02-02-2023 13:46-0500 Systolic blood pressure 130 mm[Hg] [facility] 02-02-2023 11:07-0500 Inhaled oxygen flow rate 2 L/min [facility] 02-02-2023 10:58-0500 Body height 177.8 cm [facility] 02-02-2023 10:58-0500 Body mass index (BMI) [Ratio] 31.3 kg/m2 [facility] 02-02-2023 10:58-0500 Body temperature 97.8 [degF] [facility] 02-02-2023 10:58-0500 Body weight 99 kg [facility] 02-17-2022 15:59-0500 Body height 177.[address] Kerry Burger Work Phone: [facility] 01-08-2022 13:58-0400 Diastolic blood pressure 66 mm[Hg] [facility] 01-08-2022 13:58-0400 Heart rate 57 /min [facility] 01-08-2022 13:58-0400 Respiratory rate 16 /min [facility] 01-08-2022 13:58-0400 SaO2% (BldA) [Mass fraction] 96 % [facility] 01-08-2022 13:58-0400 Systolic blood pressure 128 mm[Hg] [facility] 01-08-2022 10:54-0400 Body height 177.8 cm [facility] Work Phone: 01-08-2022 10:54-0400 Body mass index (BMI) [Ratio] 30.9 kg/m2 [facility] 01-08-2022 10:54-0400 Body temperature 96.5 [degF] [facility] 01-08-2022 10:54-0400 Body weight 97.7 kg [facility] 05-23-2021 04:11-0400 Body temperature 98.8 [degF] Marcelo Anderson MD Work Phone: [facility] 05-23-2021 04:11-0400 Diastolic blood pressure 79 mm[Hg] Marcelo Anderson MD Work Phone: [facility] 05-23-2021 04:11-0400 Heart rate 62 /min Marcelo Anderson MD Work Phone: [facility] 05-23-2021 04:11-0400 Respiratory rate 14 /min Marcelo Anderson MD Work Phone: [facility] 05-23-2021 04:11-0400 SaO2% (BldA) [Mass fraction] 93 % Marcelo Anderson MD Work Phone: [facility] 05-23-2021 04:11-0400 Systolic blood pressure 141 mm[Hg] Marcelo Anderson MD Work Phone: [facility] 05-17-2021 15:21-0500 Body height 177.8 cm Marcelo Anderson MD Work Phone: [facility] 05-17-2021 07:00-0500 Body mass index (BMI) [Ratio] 30.72 kg/m2 Marcelo Anderson MD Work Phone: [facility] 05-17-2021 07:00-0500 Body weight 97.1 kg Marcelo Anderson MD Work Phone: [facility] 05-16-2021 20:04-0500 Body temperature 98.7 [degF] [facility] Work Phone: 05-16-2021 20:04-0500 Diastolic blood pressure 83 mm[Hg] [facility] Work Phone: 05-16-2021 20:04-0500 Heart rate 79 /min [facility] Work Phone: 05-16-2021 20:04-0500 Respiratory rate 20 /min [facility] Work Phone: 05-16-2021 20:04-0500 SaO2% (BldA) [Mass fraction] 93 % [facility] Work Phone: 05-16-2021 20:04-0500 Systolic blood pressure 147 mm[Hg] [facility] Work Phone: 05-16-2021 17:18-0500 Body height 177.8 cm [facility] Work Phone: 05-16-2021 17:18-0500 Body mass index (BMI) [Ratio] 31.5 kg/m2 [facility] Work Phone: 05-16-2021 17:18-0500 Body weight 99.6 kg [facility] Work Phone: NEGATED: Highlighted [id number] 10:25-0400 BMI (Body Mass Index) 26.06 kg/m2 Ashley Clemente LPN [facility] Work Phone: NEGATED: Highlighted [id number] 10:25-0400 Body weight 82.1 kg Ashley Clmeente LPN [facility] Work Phone: NEGATED: Highlighted [id number] 10:25-0400 Body weight 82 kg Ashley Clemente CVIR TECH [facility] Work Phone: NEGATED: Highlighted [id number] 10:25-0400 BP Diastolic 72 mm[Hg] Ashley Clemente CVIR TECH [facility] Work Phone: NEGATED: Highlighted [id number] 10:25-0400 BP Systolic 121 mm[Hg] Ashley Clemente CVIR TECH [facility] Work Phone: NEGATED: Highlighted [id number] 10:25-040 Height 177.8 cm Ashley Clemente CVIR TECH [facility] Work Phone: NEGATED: Highlighted [id number] 10:250400 Height 178 cm Ashley Clemente CVIR TECH [facility] Work Phone: NEGATED: Highlighted [id number] 10:25-0400 Pulse (Heart Rate) 54 /min Ashley Clemente LPN [facility] Work Phone: Encounters Encounter Date Encounter Type Care Provider Facility Start: 06-02-2024 End: 06-02-2024 ambulatory Kerry Burger Work Phone: [facility] Comment on above: Allied Health Visit (Medication Adherence Outreach/) Start: 07-02-2023 End: 07-02-2023 ambulatory Kerry Harpreet Facility:[facility] Start: 07-02-2023 Non-patient / Non-visit Dr. Nain Burger Work Phone: [facility] Work Phone: Start: 07-01-2023 Non-patient / Non-visit Dr. Nain Burger Work Phone: [facility] Work Phone: Start: 06-30-2023 Non-patient / Non-visit Dr. Nain Burger Work Phone: [facility] Work Phone: Start: 06-30-2023 End: 06-30-2023 ambulatory Kerry Burger Facility:[facility] Start: 06-29-2023 Non-patient / Non-visit Dr. Nain Burger Work Phone: [facility] Work Phone: Start: 06-28-2023 Non-patient / Non-visit Dr. Nain Burger Work Phone: [facility] Work Phone: Start: 06-27-2023 Non-patient / Non-visit Dr. Nain Burger Work Phone: [facility] Work Phone: Start: 06-26-2023 ambulatory [facility] Facility :[facility] Start: 06-26-2023 Non-patient / Non-visit Dr. Nain Burger Work Phone: [facility] Work Phone: Start: 06-26-2023 ambulatory Duran Betancourt Fac ility:[facility] Start: 06-26-2023 End: 07-03-2023 Evaluation and management of inpatient Duran Betancourt Facility:[facility] Start: 06-25-2023 End: 07-03-2023 Evaluation and management of inpatient Dr. Kerry Burger Work Phone: [facility] Work Phone: Start: 06-25-2023 Non-patient / Non-visit Dr. Nain Burger Work Phone: [facility] Work Phone: Start: 06-24-2023 Non-patient / Non-visit Dr. Nain Burger Work Phone: [facility] Work Phone: Start: 06-23-2023 Non-patient / Non-visit Dr. Nain Burger Work Phone: [facility] Work Phone: Start: 06-22-2023 ambulatory Kerry Burger Facility: [facility] Start: 06-22-2023 End: 06-25-2023 Evaluation and management of inpatient Kerry CostaHarpreet Facility:[facility] Start: 06-22-2023 Non-patient / Non-visit Dr. Nain Burger Work Phone: [facility] Work Phone: Start: 06-22-2023 End: 06-25-2023 Evaluation and management of inpatient Dr. Kerry Burger Work Phone: [facility] Work Phone: Start: 05-04-2023 End: 05-04-2023 Emergency department patient visit Kerry Harpreet Facility:[facility] Start: 05-04-2023 End: 05-04-2023 Emergency department patient visit Dr. Kerry Burger Work Phone: [facility] Work Phone: Start: 02-02-2023 End: 02-02-2023 Emergency department patient visit [facility] Facility:[facility] Start: 02-02-2023 End: 02-02-2023 Emergency department patient visit [facility] Work Phone: Start: 03-28-2022 End: 03-28-[address] Kerry Burger Work Phone: [facility] Work Phone: Start: 03-28-2022 End: 03-28-[address] Kerry Burger Work Phone[facility] Start: 02-20-2022 End: 02-20-[address] Kerry Burger Work Phone: [facility] Start: 01-08-2022 End: 01-08-2022 Emergency department patient visit [facility] Start: 07-24-2021 End: 07-24-2021 Patient encounter procedure [facility]Radiology, [facility] Start: 05-16-2021 End: 05-23-2021 Evaluation and management of inpatient Marcelo Anderson MD Work Phone: [facility] Comment on above: Closed nondisplaced lateral mass fracture of first cervical vertebra, initial encounter (HCC) (Primary Dx) Start: 05-16-2021 End: 05-16-2021 Emergency department patient visit [facility] Start: 01-18-2021 Patient encounter status [facility] Procedures Date Procedure Procedure Detail Performing Clinician Start: 06-26-2023 Plain chest X-ray Dr. Ariane Burger Work Phone: Start: 06-25-2023 Plain chest X-ray Dr. Ariane Burger Work Phone: Start: 06-22-2023 CT cervical spine without contrast Dr. Kerry Burger Work Phone: Start: 06-22-2023 CT of chest, abdomen and pelvis without contrast Dr. Kerry Burger Work Phone: Start: 06-22-2023 CT of head without contrast Dr. Kerry Burger Work Phone: Start: 05-04-2023 Plain X-ray of shoulder Dr. Kerry Burger Work Phone: Start: 05-04-2023 Plain x-ray of hand Dr. Kerry Burger Work Phone: Start: 05-04-2023 CT cervical spine without contrast Dr. Kerry Burger Work Phone: Start: 05-04-2023 CT of chest without contrast Dr. Kerry Burger Work Phone: Start: 05-04-2023 CT of head without contrast Dr. 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 Results obtained by different methods should not be used interchangeably. Start: 05-21-2021 Hepatic function panel Anusha Andrews MD Work Phone: Start: 05-21-2021 PSA screening Anusha Andrews MD Work Phone: Start: 05-20-2021 ADD ON LAB TEST Randy Aguilar MD Work Phone: Start: 05-20-2021 Dup-scan xtr veins complete bilateral study Pk Pruitt [employer] - [employer] Work Phone: Start: 05-19-2021 Basic metabolic pane l calcium total Marcelo Anderson MD Work Phone: Start: 05-19-2021 Drug screen quantita tive phenobarbital Marcelo Anderson MD Work Phone: Start: 05-19-2021 Blood count complete auto&auto difrntl wbc Bienvenido Mcleod MD Work Phone: Start: 05-18-2021 Basic metabolic pane l calcium total Bienvenido Mcleod MD Work Phone: Start: 05-17-2021 Radex spine cervical 2 or 3 views Nerissa Negron MD Work Phone: Start: 05-17-2021 Ct angiography neck w/contrast/noncontrast Nerissa Negron MD Work Phone: Start: 05-17-2021 Ct head/brain w/o contrast material Miguel Angel Ramirez MD Work Phone: Start: 05-17-2021 Ct thoracic spine w/ o contrast material Nerissa Negron MD Work Phone: Start: 05-17-2021 Radex shoulder 1 view B humza Negron MD Work Phone: Start: 05-17-2021 Radiologic examinati on pelvis 1/2 views Miguel Angel Ramirez MD Work Phone: Start: 05-17-2021 Basic metabolic pane l calcium total Bienvenido Mcleod MD Work Phone: Start: 05-17-2021 Drug screen quantita tive phenobarbital Miguel Angel Ramirez MD Work Phone: Start: 05-16-2021 Speech and language therapy regime Miguel Angel Ramirez MD Work Phone: Start: 05-16-2021 Plain chest X-ray Start: 05-16-2021 CT cervical spine without contrast Start: 05-16-2021 CT of head without contrast Start: 05-16-2021 Plain X-ray of shoulder Start: 05-16-2021 X-ray of lumbar spin e, two or three views Start: 05-16-2021 Bacteria identified in Blood by Culture Start: 09-03-2018 End: 09-03-2018 Radex spine cervical 2 or 3 views Eloy Barrientos MD Work Phone: NEGATED: Highlighted rowStart: 09-03-2018 End: 09-03-2018 Documentation of current medications Ashley Clemente LPN Plan of Treatment Date Care Activity Detail Author Start: 06-15-2030 DTaP/Tdap/Td vaccine (3 - Td or Tdap) DTaP/Tdap/Td vaccine (3 - Td or Tdap) [facility] Start: 05-19-2024 Diabetes Screening Diabetes Screenin [facility] Start: 03-09-2024 Advance Directive Discussion Advance Directive Discussion [facility] Start: 11-08-2023 Covid-19 Vaccine ( season) Covid-19 Vaccine () [facility] Start: 11-08-2023 Influenza vaccination Influenza Vacc ine (#1) [facility] Start: 07-02-[address] [facility] Start: 07-02-2023 [facility] Start: 06-28-2023 [facility] Start: 06-26-2023 Wound care [facility] Start: 06-26-2023 Application of intermittent pneumatic compression device [facility] Start: 06-26-2023 Oxygen therapy [facility] Start: 06-26-2023 Ambulation without limitation [facility] Start: 06-26-2023 Assessment of risk o f venous thromboembolism [facility] Start: 06-26-2023 Consultation for treatment [facility] Start: 06-26-2023 Insertion of cathete r into peripheral vein [facility] Start: 06-26-2023 Providing care accor ding to standard [facility] Start: 06-26-2023 Referral to occupati onal therapist [facility] Start: 06-26-2023 Referral to service [facility] Start: 06-26-2023 [facility] Start: 06-26-2023 Following clinical pathway protocol [facility] Start: 06-25-2023 Verification routine [facility] Start: 06-25-2023 Admission procedure [facility] Start: 06-25-2023 Hospital admission, emergency, from emergency room, medical nature [facility] Start: 06-25-2023 End: 06-26-2023 Consultation [facility] Start: 06-25-[address] [facility] Start: 06-24-2023 Referral to service [facility] Start: 06-22-2023 Assessment of risk o f venous thromboembolism [facility] Start: 06-22-2023 Fall prevention [facility] Start: 06-22-2023 Incentive spirometry [facility] Start: 06-22-2023 Inhalation therapy procedure [facility] Start: 06-22-2023 Insertion of cathete r into peripheral vein [facility] Start: 06-22-2023 Introduction of urin kelsie catheter [facility] Start: 06-22-2023 Measuring intake and output [facility] Start: 06-22-2023 Oxygen therapy [facility] Start: 06-22-2023 Providing care accor ding to standard [facility] Start: 06-22-2023 Provision of activit y privileges [facility] Start: 06-22-2023 Referral to occupati onal therapist [facility] Start: 06-22-2023 Referral to service [facility] Start: 06-22-2023 Seizure precautions [facility] Start: 06-22-2023 [facility] Start: 06-22-2023 Following clinical pathway protocol [facility] Start: 06-22-2023 Verification routine [facility] Start: 06-22-2023 Hospital admission, emergency, from emergency room, medical nature [facility] Start: 06-22-2023 Admission procedure [facility] Start: 06-22-2023 Seizure precautions [facility] Start: 05-12-2023 RSV Vaccine (1 - 1-d ose 75+ series) RSV Vaccine (1 - 1-dose 75+ series) [facility] Start: 05-04-2023 [facility] Start: 02-03-2023 [facility] Start: 02-02-2023 [facility] Start: 02-02-2023 [facility] Start: 05-20-2021 Annual Wellness Visi t (AWV) Annual Wellness Visit (AWV) [facility] Start: 11-07-2020 Influenza vaccination Flu vaccine (# 1) [facility] Start: 10-15-2018 End: 10-15-2018 Appointment Appointment [facility] Work Phone: Start: 2013 Abdominal aortic ane urysm screening AAA screen [facility] Start: 2013 Pneumococcal 65+ yea rs Vaccine (1 of 1 - PPSV23) Pneumococcal 65+ years Vaccine (1 of 1 - PPSV23) [facility] Start: 10-04-2009 Hepatitis B surface antibody level LDL Cholesterol [facility] Start: 1998 Shingles Vaccine (1 of 2) To gles Vaccine (1 of 2) [facility] Start: 1998 Shingrix Vaccine (1 of 2) To grix Vaccine (1 of 2) [facility] Start: 1993 Screening for malign ant neoplasm of colon [facility] Start: 05-12-1967 Pneumococcal Vaccine : 50+ (1 of 2 - PCV) Pneumococcal Vaccine: 50+ (1 of 2 - PCV) [facility] Start: 05-12-1967 Urine microalbumin profile DTaP,Tdap,Td Vaccine (1 - Tdap) [facility] Start: 1966 Annual PCP Team Animal Sticker epi Disease Visit Annual PCP Team Chronic Disease Visit [facility] Start: 1966 BP Controlled (<130/80) BP Controlle d (<130/80) [facility] Start: 1966 Depression Screening Depression Scre ening [facility] Start: 1966 Hepatitis C screening Hepatitis C Sc elizabeth [facility] Start: 1966 Spirometry Spirometry [facility] Start: 1960 Depression Screen [facility] Screen [facility] Start: 1958 Lipid panel Lipid screen [facility] Start: 1953 COVID-19 Vaccine (1) COVID-19 Vaccin e (1) [facility] Start: 1948 Hepatitis C screening Hepatitis C [facility] Oxygen therapy [[facility]] Initiate Oxygen Therapy Protocol Respiratory Care Routine As Needed until discontinued starting 05/16/2021 [facility] Work Phone: Comment on above: As Needed until disc ontinued starting 05/16/2021 Patient Education Latasha [facility] Work Phone: Patient referral [facility] Work Phone: End: 05-17-2021 Phenobarbital Level Phenobarbital Level Lab Routine One Time for 1 Occurrences starting 05/17/2021 until 05/17/2021 [facility] Work Phone: Comment on above: One Time for 1 Occur rences starting 05/17/2021 until 05/17/2021 Phenobarbital Level Phenobarbita l Level Lab Routine 05/17/2021 12:25 AM EST [facility] Work Phone: Spirometry panel Incentive tamiko metry Respiratory Care Routine Every 2hr while awake until discontinued starting 05/17/2021 [facility] Work Phone: Comment on above: Every 2hr while awak e until discontinued starting 05/17/2021 VL DUP LOWER EXTREMI TY VENOUS BILATERAL VL DUP LOWER EXTREMITY VENOUS BILATERAL Imaging Routine Every Mo,Th until discontinued starting 05/20/2021, 2 completed [facility] Work Phone: Comment on above: Every Mo,Th until di scontinued starting 05/20/2021, 2 completed Immunizations Immunization Date Immunization Notes Care Provider Fa sherwin 06-15-2020 tetanus toxoid, redu pham diphtheria toxoid, and acellular pertussis vaccine, adsorbed [facility] 12-07-2017 Influenza virus vaccine [facility] 12-08-2016 Influenza virus vaccine [facility] 12-07-2014 influenza, injectabl e, quadrivalent, preservative free [facility] 12-07-2014 influenza, seasonal, injectable [facility] 05-04-2014 tetanus toxoid, redu pham diphtheria toxoid, and acellular pertussis vaccine, adsorbed [facility] 12-12-2013 Influenza virus vaccine [facility] 12-28-2012 Influenza virus vaccine [facility] 12-28-2012 Pneumococcal Vaccine [facility] Work Phone: 12-28-2012 pneumococcal vaccine , unspecified formulation Dr. Kerry Burger Work Phone: [facility] 03-17-2012 influenza virus vaccine, unspecified formulation Kerry Burger DO Work Phone: [facility] Work Phone: 12-14-2008 influenza virus vaccine, unspecified formulation Kerry Burger DO Work Phone: [facility] Work Phone: 02-02-2008 influenza virus vaccine, unspecified formulation Kerry Burger DO Work Phone: [facility] Work Phone: Payers Date Payer Category Payer Unknown [id number] 2023 Private Health Insurance [id number] 2023 Self-pay [id number] 2023 Unknown [id number] 2022 Medicaid [id number] 2016 Medicaid [id number] 1985 Medicare [id number] 1985 Medicare MEDICARE [id number] 1948 Unknown [id number] 2.840.1.548809.3.579.2. 627 Unknown [id number] 2.840.1.894763.3.579.2. 462 Unknown [id number] 2.16840.1.535174.3.579.2. 462 Unknown [id number] 2.840.1.987393.3.579.2. 462 Unknown [id number] 2.840.1.260732.3.579.2. 462 Unknown [id number] 2.16.840.1.149377.3.579.2. 462 Unknown [id number] 2.16.840.1.409194.3.579.2. 462 Unknown [id number] 2.16.840.1.159048.3.579.2. 462 Unknown [id number] 2.16.840.1.956171.3.579.2. 462 Unknown [id number] 2.16.840.1.158810.3.579.2. 462 Unknown [id number] 2.16.840.1.681344.3.579.2. 462 Unknown [id number] 2.16.840.1.711727.3.579.2. 462 Unknown [id number] 2.16.840.1.796070.3.579.2. 462 Unknown [id number] 2.16.840.1.723010.3.579.2. 462 Unknown [id number] 2.16.840.1.323670.3.579.2. 462 Unknown [id number] 2.16.840.1.364558.3.579.2. 462 Unknown [id number] 2.16.840.1.714589.3.579.2. 462 Unknown [id number] 2.16.840.1.938138.3.579.2. 462 Social History Date Type Detail Facility Start: 02-04-2012 End: 08-17-2018 Tobacco smoking status SCIS Ex-smoker [facility] Phone: Start: 08-17-2018 Tobacco use and exposure Smokeless tobacco non-user [facility] Phone: Start: 05-17-2021 History SDOH Alcohol Frequency 1 [facility] Phone: Start: 1950 Sex Assigned At Not on file [facility] Work Phone: Exposure to SARS-CoV-2 (event) Not sure [facility] Work Phone: Start: 05-16-2021 End: 06-26-2023 Tobacco smoking status NHIS Unknown if ever smoked [facility] Start: 02-13-2021 None [facility] Start: 02-13-2021 Alone [facility] Start: 02-13-2021 Non-smoker [facility] Start: 1950 Sex Assigned At Male W [facility] History of tobacco use Current smoker [facility] History of tobacco use Cigarette Smoker [facility] Start: 02-04-2012 Cigarettes smoked current (pack per day) - Reported 2 [facility] Start: 02-04-2012 Tobacco use and exposure User of smokeless tobacco [facility] History of tobacco use Chews Tobacco [facility] Start: 01-03-2016 Alcoholic beverage intake Current non-drinker of alcohol (finding) [facility] Start: 02-06-2007 Tobacco Comment chew tobacco s nuff 1 can daily [facility] Gender identity Not on file [facility] inic NEGATED: Highlighted rowStart: 09-03-2018 End: 09-03-2018 Alcohol use Alcohol use [facility] Work Phone: NEGATED: Highlighted rowStart: 09-03-2018 End: 09-03-2018 Details of drug misuse behavior Details of drug misuse behavior [facility] Work Phone: NEGATED: Highlighted rowStart: 09-03-2018 End: 09-03-2018 Assertion Former smoker [facility] Work Phone: NEGATED: Highlighted rowStart: 09-03-2018 End: 09-03-2018 How many days of moderate to strenuous exercise, like a brisk walk, did you do in the last 7 days? How many days of moderate to strenuous exercise, like a brisk walk, did you do in the last 7 days? [facility] Work Phone: Goals Date Patient Goal Desired Activity /State Functional Status Date Assessment Result Facility 07-02-2023 Functional status Ambulates [facility] Work Phone: 06-25-2023 Functional status Chair;Stand with Urinal [facility] Work Phone: 01-18-2014 Are you deaf, or do you have serious difficulty hearing No 01/18/2014 12:58 PM Pauline Goodman MA [facility] 01-18-2014 Are you blind, or do you have serious difficulty seeing, even when wearing glasses No 01/18/2014 12:58 PM Pauline Goodman MA No [facility] 01-18-2014 Do you have serious difficulty walking or climbing stairs No 01/18/2014 12:58 PM Pauline Goodman MA No [facility] 01-18-2014 Do you have difficul ty dressing or bathing No 01/18/2014 12:58 PM Pauline Goodman MA [facility] 01-18-2014 Because of a physica l, mental, or emotional condition, do you have difficulty doing errands alone such as visiting a physician's office or shopping No 01/18/2014 12:58 PM Pauline Goodman MA [facility] Mental Status Date Assessment Result Facility 07-02-2023 Cognitive function Voice/Name [facility] Work Phone: 06-25-2023 Cognitive function Voice/Name [facility] Work Phone: 06-22-2023 Cognitive function Voice/Name [facility] Work Phone: 02-02-2023 Cognitive function Voice/Name [facility] Work Phone: 01-18-2014 Because of a physica l, mental, or emotional condition, do you have serious difficulty concentrating, remembering, or making decisions No 01/18/2014 12:58 PM Pauline Goodman MA No [facility] Clinical Notes 05-23-2021 to 06-02-2024 Radha Baird CPhT - 06/02/2024 2:11 PM EDT Note Date & Type Note Facility 06-02-2024 Note HNO ID: [id number] Author: RADHA BAIRD CPhT Service: ? Author Type: [employer] Type: Progress Notes Filed: 06/02/2024 14:12 Note Text: Patient is identified through a medication adherence outreach initiative based on pharmacy claims data from: [employer] Medication Adherence Category: Statins First Review Attribution Status: Questionable Attribution - Patient moved out of care, hospice Radha Baird CPhT [facility] Care Pharmacy Team [facility] 06-02-2024 History of Present illness Narrative Patient is identified through a medication adherence outreach initiative based on pharmacy claims data from: [employer] Medication Adherence Category: Statins First Review Attribution Status: Questionable Attribution - Patient moved out of care, hospice Radha Baird CPhT [facility] Pharmacy Team documented in this encounter [facility] 06-02-2024 Note Patient Outreach ([facility]) [facility] ([id number]) 1950 M Date Time Provider Department 06/02/24 KERRY BURGER During your visit today, we recorded the following information about you: Radha Baird CPhT 06/02/2024 2:12 PM Signed Patient is identified through a medication adherence outreach initiative based on pharmacy claims data from: [employer] Medication Adherence Category: Statins First Review Attribution Status: Questionable Attribution - Patient moved out of care, hospice Radha Baird CPhT Value [facility] Care Pharmacy Team Allergies As of Date: 06/02/2024 Noted Allergy Reaction BEES 07/10/2005 CARAFATE (SUCRALFATE) 07/10/2005 CIPRO (CIPROFLOXACIN) 07/10/2005 DILANTIN (PHENYTOIN SODIUM EXTEND*07/10/2005 KEFLEX (CEPHALEXIN) 07/10/2005 OPIOIDS - MORPHINE ANALOGUES 08/11/2012 Comments: Please see office note of August 11, 2012. I told the patient that family medicine could not give him opioid pain medication. SESAME OIL 07/10/2005 SULFA (SULFONAMIDE ANTIBIOTICS) 07/10/2005 TEGRETOL (CARBAMAZEPINE) 07/10/2005 Date Reviewed: 01/03/2016 Reviewed by: Ondina Palomino RN - Fully Assessed Reason for Visit: Allied Health Visit [5] Cmt: Medication Adherence Outreach Prescriptions as of 06/02/2024 - OXYCODONE HCL (OXYCODONE ORAL) Take by mouth three times daily as needed. - ramelteon (ROZEREM) 8 mg tablet Take 8 mg by mouth daily at bedtime. - PHENOBARBITAL, BULK, MISC 64 mg twice daily. - tiaGABine (GABITRIL) 4 mg tablet - Valsartan-Hydrochlorothiazide 320-25 mg per tablet - Zolpidem (AMBIEN CR) 12.5 mg CR tablet - testosterone cypionate 200 mg/mL injection Inject 2 mL intramuscularly every 2 weeks. - ALPRAZolam (XANAX) 1 mg tablet 2 mg. Take two tablet at bed time. - simvastatin 20 mg tablet Take 1 tablet by mouth daily at bedtime. - AMINO AC/WHEY PROT CON AND ISOL (WHEY PROTEIN ORAL) Take by mouth. - montelukast (SINGULAIR) 10 mg tablet Take 1 tablet by mouth daily at bedtime. As needed - UBIDECARENONE (COQ-10 ORAL) Take by mouth. - VITAMIN B COMPLEX (SUPER B COMPLEX ORAL) Take by mouth. - eszopiclone (LUNESTA) 3 mg Tab Take 1 tablet by mouth at bedtime as needed (sleep). - traZODone 100 mg tablet Take 0.5-1 tablets by mouth daily at bedtime. - PHENobarbital 30 mg tablet Take 3 tablets by mouth three times daily. - Cholecalciferol, Vitamin D3, 2,000 unit cap Take 1 tablet by mouth once daily. - Magnesium 250 mg Tab Take 1 tablet by mouth once daily. - Potassium 99 mg Tab Take 1 tablet by mouth once daily. - Aspirin 81 mg Tab Take 1 tablet by mouth once daily. Take with food. - acetaminophen-HYDROcodone (VICODIN) 5-500 mg tablet Take 1 tablet by mouth four times daily. - nitroglycerin sublingual 0.4 mg SL tablet Dissolve 1 tablet under the tongue every 5 minutes as needed for Chest Pain. - metoprolol succinate XL, long acting, (TOPROL XL) 50 mg 24 hr tablet Take 1 tablet by mouth once daily. - clopidogrel bisulfate(PLAVIX 75 MG TAB) Take one(1) tablet daily. - OTC PRODUCT omega-3 - VITAMIN C 500 MG TAB Take 1 tablet twice daily - DAILY MULTIPLE TAB Take one(1) tablet daily. Problem List As Of Date 06/02/2024 Noted Resolved Hypertrophy of prostate with urinary obstructio*10/20/2006 Other convulsions [R56.9] 10/20/2006 Esophageal reflux [K21.9] 10/20/2006 Cor Athrscl-Uns Vessel [I25.10] 10/20/2006 CHRONIC AIRWAY OBSTRUCTION NEC [J44.89] 10/20/2006 Generalized osteoarthrosis, unspecified site [M*10/20/2006 Tobacco use disorder [F17.200] 06/07/2007 Thoracic or lumbosacral neuritis or radiculitis*01/24/2008 Obesity, unspecified [E66.9] 02/02/2008 Other and unspecified hyperlipidemia [E78.5] 08/30/2008 Unspecified Sleep Apnea [G47.30] 08/30/2008 Restless legs [G25.81] 02/04/2012 Insomnia [G47.00] 02/04/2012 PTSD (post-traumatic stress disorder) [F43.10] 02/04/2012 Cervicalgia [M54.2] 02/04/2012 Male hypogonadism [E29.1] 02/06/2012 HTN (hypertension) [I10] 03/17/2012 Epilepsy [G40.909] 08/11/2012 Left inguinal hernia [K40.90] 10/09/2015 Personal history of colonic polyps [Z86.0100] 01/03/2016 Encounter Status:Closed by RADHA BAIRD on 06/02/24 [facility] 07-02-2023 Discharge summary Note Date/Time July 02, 2023 3:42pm [facility] Medical Records Department [address] [place] [address] Transfer to [facility] Care MR#: [id number] Acct: [id number] Name: [facility] Rep #:[id number] 1 : 1950 73 From: Kerry Herrera DO PCP: Dr. Kerry Burger, DO Status:ADM IN Certification of patient admission REQUIRED AT TIME OF ADMISSION. I CERTIFY THAT POST-HOSPITAL ECF SERVICES ARE REQUIRED TO BE GIVEN ON AN IN-PATIENT BASIS BECAUSE OF THE ABOVE NAMED PATIENT'S NEED FOR LONG-TERM CARE ON A CONTINUING BASIS FOR THE CONDITION(S) FOR WHICH HE/SHE WAS RECEIVING IN-PATIENT HOSPITAL SERVICES PRIOR TO HIS/HER TRANSFER TO THE ECF. 07/02/23 [id number]<Electronically signed by Kerry Herrera DO> Diet Diet Order/Speech Therapy: 06/26/23 00:44 Diet: Cardiac - Heart Healthy Food consistency:: Regular Liquid Consistency:: Regular/Thin Is pt able to select menu?: No Routine Orders/Code Status O2 Liters per Minute: 2 O2 Frequency: Continuous Keep PO Greater than or Equal to (%): 90 Wound(s) rt leg: Wound Type: scattered abrasions left knee: Wound Type: Abrasion rt elbow: Wound Type: scabbed over abrasion Dressing Change: Adaptic left elbow: Wound Type: Abrasion rt toes: Wound Type: Abrasion Therapies Weight Bearing: Full weight bearing (with walker) Physical Therapy: Eval and Treat Occupational Therapy: Eval and Treat Problem/Diagnosis (1) Failure to thrive: Status: Acute (2) Bilateral shoulder pain: Status: Acute Code(s): M25.511 - Pain in right shoulder; M25.512 - Pain in left shoulder Plan 1. Acute debility secondary to deconditioning-PT and OT will continue to see the patient, he will need short-term placement in a halfway facility. #2 seizure disorder-patient states he takes Valium 10 mg twice daily as needed, he is also on Gabitril and phenobarbital #3 hyperlipidemia-patient is on atorvastatin #4 PTSD-patient is currently on prazosin #5 coronary artery disease-patient is currently on aspirin and Plavix, he is also on isosorbide #6 chronic hypoxic respiratory failure-patient remains on 3 L of oxygen via nasal cannula I do not feel the patient had rhabdomyolysis this admission Total clinical time spent by myself addressing the patient's medical issues, reviewing all of his data, and collaborating with patient's care team: 25 minutes Allergies/Procedures Done in Hospital Allergies bee pollen Allergy (Severe, Verified 06/25/23 19:20) Anaphylaxis amlodipine besylate [From Norvasc] Adverse Reaction (Severe, Verified 06/25/23 19:20) Upset Stomach cephalexin [From Keflex] Adverse Reaction (Severe, Verified 06/25/23 19:20) Hives mental change latex Adverse Reaction (Severe, Verified 06/25/23 19:20) Rash phenytoin sodium [From Dilantin] Adverse Reaction (Severe, Verified 06/25/23 19:20) Hives At doses of higher than 100 mg phenytoin sodium extended [From Dilantin] Adverse Reaction (Severe, Verified 06/25/23 19:20) Hives At doses of higher than 100 mg sesame oil Adverse Reaction (Severe, Verified 06/25/23 19:20) Upset Stomach carbamazepine [From Tegretol] Adverse Reaction (Mild, Verified 06/25/23 19:20) Hives sucralfate [From Carafate] Adverse Reaction (Mild, Verified 06/25/23 19:20) Hives Sulfa (Sulfonamide Antibiotics) Adverse Reaction (Verified 06/25/23 19:20) Unknown Procedures: None Type of Care/Length of Stay Estimated LOS: Convalescent Care Less Than 30 days Type of Care Needed: Skilled Rehab Potential: Good Prognosis: Good Additional Orders/Day of Discharge H&P will serve as current which was dated: 06/25/23 Day of Discharge: 07/02/23 Dietary and Speech Recommendations Dietitian Recommendations/Changes: Continue Cardiac diet as ordered. Discharge Plan Admission Admit Date/Time: 06/25/23 23:05 Primary Reason for Your Visit: Debility Attending Provider: Kerry Herrera Primary Care Provider: Kerry Burger Consulting Providers: Kerry Herrera; John Lemus Discharge Orders/Prescriptions Prescriptions: New albuterol sulfate 2.5 mg /3 mL (0.083 %) Solution For Nebulization 2.5 mg inhalation Q4H PRN PRN (Reason: shortness of breath or wheezing) Qty: 0 0RF atorvastatin 10 mg Tablet 10 mg PO QHS Qty: 0 0RF clopidogrel 75 mg Tablet 75 mg PO DAILY Qty: 0 0RF aspirin 81 mg Tablet,Chewable 81 mg PO DAILY@0800 Qty: 0 0RF diazepam 5 mg Tablet 10 mg PO BID PRN PRN (Reason: seizure activity) Qty: 4 0RF Artificial Tears(md-uegi-hwle) 1-0.2-0.2 % Drops 1 drp EACH EYE Q2H PRN PRN (Reason: DRY EYES) Qty: 0 0RF isosorbide dinitrate 30 mg Tablet 30 mg PO DAILY Qty: 0 0RF montelukast 10 mg Tablet 10 mg PO DAILY Qty: 0 0RF oxycodone 5 mg Tablet 10 mg PO TID 2 Days Qty: 12 0RF prazosin 1 mg Capsule 4 mg PO QHS Qty: 0 0RF tiagabine 4 mg Tablet 4 mg PO 4X/DAY Qty: 0 0RF trazodone 100 mg Tablet 100 mg PO QHS Qty: 0 0RF nystatin [Nyamyc] 100,000 unit/gram Powder 1 applic topical BID Qty: 0 0RF Protocol: *Topical Application Instructions APPLICATION INSTRUCTIONS: groin timolol maleate 0.5 % Drops 1 drp ophthalmic (eye) BID Qty: 0 0RF phenobarbital 32.4 mg Tablet 64.8 mg PO 0600,2200 Qty: 6 0RF mecobalamin (vitamin B12) [B12 Active] 1,000 mcg tablet,chewable 1,000 mcg PO DAILY Qty: 1 0RF phenobarbital 32.4 mg Tablet 32.4 mg PO TID Qty: 9 0RF Continued clopidogrel 75 MG tablet 75 mg PO DAILY Patient Comments: Blood thinner aspirin 81 MG tablet,chewable 81 mg PO DAILY@0800 Patient Comments: Blood thinner for heart health trazodone 100 MG tablet 100 mg PO QHS Patient Comments: Sleep isosorbide dinitrate 30 MG tablet 30 mg PO DAILY simvastatin 20 MG tablet 20 mg PO QHS phenobarbital 64.8 mg tablet 64.8 mg PO BID Rx Instructions: with 32.4mg cholecalciferol (vitamin D3) 2,000 UNIT capsule 2,000 unit PO DAILY montelukast 10 mg tablet 10 mg PO DAILY PRN Patient Comments: take 1 tablet by mouth once daily timolol maleate 0.5 % drops 1 drp ophthalmic (eye) BID oxycodone 10 mg tablet 10 mg PO TID prazosin 2 mg capsule 4 mg PO DAILY tiagabine [Gabitril] 4 mg tablet 4 mg PO 4X/DAY phenobarbital 32.4 MG tablet 32.4 mg PO TID Qty: 10 0RF Discontinued albuterol sulfate [ProAir HFA] 90 mcg/actuation HFA aerosol inhaler 2 puff INHALATION Q4H PRN (Reason: shortness of breath or wheezing) mecobalamin (vitamin B12) 10,000 mcg recon soln 10,000 mcg IM .q 2 weeks omega-3 fatty acids-fish oil 1 EACH capsule,delayed release(DR/EC) 1 ea PO DAILY Patient Comments: Supplement ascorbic acid (vitamin C) 500 MG tablet 500 mg PO DAILY@0800 Patient Comments: Supplement epinephrine 0.3 MG syringe 0.3 mg IM X1 PRN (Reason: allergy) gabapentin 100 mg capsule 200 mg PO QHS Patient Comments: TAKE 2 CAPSULES BY MOUTH ONCE DAILY AT BEDTIME olopatadine 0.1 % drops 1 drp ophthalmic (eye) BID testosterone enanthate 200 mg/mL oil 200 mg IM UD Rx Instructions: Q2W cyclosporine [Restasis] 0.05 % dropperette 1 drp ophthalmic (eye) BID Rhopressa 0.02 % drops 1 drp LEFT EYE DAILY diazepam 10 MG tablet 10 mg PO BID PRN (Reason: seizure activity) Qty: 1 0RF Rx Instructions: 2 tabs as needed twice daily for 1 week, then 1 tab daily as needed for 1 week, then half a tab daily as needed for 1 week, then half a tab every other day as needed for 1 week, then half a tab every 3 days as needed for 1 week then stop. cyanocobalamin (vitamin B-12) 1,000 mcg/mL solution 1,000 mcg IM QMONTH nitroglycerin 0.4 mg tablet, sublingual 0.4 mg SUBLINGUAL Q5M PRN (Reason: Chest Pain) Qty: 25 6RF Referrals / Follow Up: Kerry Burger DO [Primary Care Provider] - Disposition Disposition (needs filled in before D/C Order can be placed): Residential Facility 07/02/231658 <Electronically signed by Kerry Herrera DO> Cosigner Signature (if applicable): CC: Dr. John Lemus DO; Dr. Kerry Burger DO; Dr. Kerry Herrera DO ~ [facility] Work Phone: 1(190) 296-679304-25-2024 [facility] Medical Records Department [address] [place] [id number] Discharge Summary 07/02/231658 MR#: [id number] Acct: [id number] Name: BEAR SHINE Rep #: [id number] : 1950 73 From: Kerry Herrera DO PCP: Dr. Kerry Burger DO Status:DIS IN Location: [facility] [id number] Providers Date of Admission: 06/25/23 Date of Discharge: 07/02/23 Primary Care Physician: Dr. Kerry Burger DO Consultations 06/26/23 00:44 Consult: Onc/Wound/fisher purse seine Routine Comment: Reason for Consult:: wounds everywhere Reason For Visit: FTT DEBILITY Diagnosis Discharge Diagnosis (1) Failure to thrive: Status: Acute (2) Bilateral shoulder pain: Status: Resolved Code(s): M25.511 - Pain in right shoulder; M25.512 - Pain in left shoulder Plan 1. Acute debility secondary to deconditioning, PTSD, and chronic hypoxic respiratory failure-PT and OT will continue to see the patient, he will need short-term placement in a halfway facility. #2 seizure disorder-patient states he takes Valium 10 mg twice daily as needed, he is also on Gabitril and phenobarbital #3 hyperlipidemia-patient is on atorvastatin #4 PTSD-patient is currently on prazosin #5 coronary artery disease-patient is currently on aspirin and Plavix, he is also on isosorbide #6 chronic hypoxic respiratory failure-patient remains on 3 L of oxygen via nasal cannula I do not feel the patient had rhabdomyolysis this admission Total clinical time spent by myself addressing the patient's medical issues, reviewing all of his data, and collaborating with patient's care team: 25 minutes Medications at Discharge Home Medications clopidogrel 75 mg tablet 75 mg PO DAILY ANTIPLATELET 03/03/14 aspirin 81 mg chewable tablet 81 mg PO DAILY@0800 HEART HEALTH 05/04/14 trazodone 100 mg tablet 100 mg PO QHS MENTAL HEALTH/SLEEP 04/03/15 isosorbide dinitrate 30 mg tablet 30 mg PO DAILY heart 01/07/18 simvastatin 20 mg tablet 20 mg PO QHS 02/13/18 cholecalciferol (vitamin D3) 50 mcg (2,000 unit) capsule 2,000 unit PO DAILY 05/26/19 phenobarbital 64.8 mg tablet 64.8 mg PO BID seizures 01/18/21 montelukast 10 mg tablet 10 mg PO DAILY PRN 02/02/23 timolol maleate 0.5 % eye drops 1 drp ophthalmic (eye) BID 06/22/23 oxycodone 10 mg tablet 10 mg PO TID 06/25/23 prazosin 2 mg capsule 4 mg PO DAILY 06/25/23 tiagabine 4 mg tablet (Gabitril) 4 mg PO 4X/DAY 06/25/23 albuterol sulfate 2.5 mg/3 mL (0.083 %) solution for nebulization 2.5 mg (3 mL) inhalation Q4H PRN PRN shortness of breath or wheezing #0 mL 07/02/23 aspirin 81 mg chewable tablet 81 mg PO DAILY@0800 #0 tabs 07/02/23 atorvastatin 10 mg tablet 10 mg PO QHS #0 tabs 07/02/23 clopidogrel 75 mg tablet 75 mg PO DAILY #0 tabs 07/02/23 diazepam 5 mg tablet 10 mg (2 x 5 mg) PO BID PRN PRN seizure activity #4 tabs 07/02/23 isosorbide dinitrate 30 mg tablet 30 mg PO DAILY #0 tabs 07/02/23 mecobalamin (vitamin B12) 1,000 mcg chewable tablet (B12 Active) 1,000 mcg PO DAILY #1 TAB 07/02/23 montelukast 10 mg tablet 10 mg PO DAILY #0 tabs 07/02/23 nystatin 100,000 unit/gram topical powder (Nyamyc) 1 applic topical BID #0 grams 07/02/23 oxycodone 5 mg tablet 10 mg (2 x 5 mg) PO TID 2 days #12 tabs 07/02/23 peg 894-ikzeaavbnlgm-mrjefwia 1 %-0.2 %-0.2 % eye drops (Artificial Tears (sd090-eehyxorzd- glycerin)) 1 drp EACH EYE Q2H PRN PRN DRY EYES #0 mL 07/02/23 phenobarbital 32.4 mg tablet 32.4 mg PO TID #9 tabs 07/02/23 phenobarbital 32.4 mg tablet 32.4 mg PO TID SEIZURES #10 tabs 07/02/23 phenobarbital 32.4 mg tablet 64.8 mg (2 x 32.4 mg) PO 0600,2200 #6 tabs 07/02/23 prazosin 1 mg capsule 4 mg (4 x 1 mg) PO QHS #0 caps 07/02/23 tiagabine 4 mg tablet 4 mg PO 4X/DAY #0 tabs 07/02/23 timolol maleate 0.5 % eye drops 1 drp ophthalmic (eye) BID #0 mL 07/02/23 trazodone 100 mg tablet 100 mg PO QHS #0 tabs 07/02/23 Hospital Course Operations None Procedures None Summary of Care Provided Minutes Spent on Discharge: 32 Hospital Course: 73-year-old white male presented to the emergency room at [facility] after experiencing mechanical fall at home and was unable to get up on his own, he had just been disch arged from the hospital here at [facility] same day, he had been admitted for failur e to thrive and mild rhabdomyolysis and possible breakthrough seizure. Patient was admitted to [facility], he was seen by PT and OT, it was recommended that he go to a halfway facility for lakshmi rt-term rehab services. Patient agreed to this. On 07/02/2023, patient was seen and examined: On examination he appeared in good health and spirits. Vital signs as documented. Skin warm and dry and without overt rashes. Neck without JVD, neck was supple, trachea midline, thyroid was normal. Lungs clear bilaterally, normal air movement was noted. Heart exam notable for regular rhythm, n (more content not included)...[facility]04-24-2024 Progress note Author Kerry Herrera [facility] July 01, 2023 6:19pm Note Date/Time July 01, 2023 6:1 9pm [facility] Medical Records Department [address] [place] [address] Progress Note - Hospitalist 07/01/23 1817 MR#: [id number] Acct: [id number] Name: BEAR SHINE Rep #:[id number] : 1950 73 From: Kerry Herrera DO PCP: Dr. Kerry Burger, DO Status:ADM IN [facility] Subject[facility] Subjective Patient was seen and examined today, he remains on 3 L of nasal cannula oxygen, we have not heard word from his insurance regarding approval for the patient to go to an extended care facility. Objective Data Objective Data Vital Signs: Vital Signs Temp Pulse Resp BP Pulse Ox O2 Del Method O2 Flow Rate 98.2 F 63 18 132/69 H 96 Nasal Cannula 3 07/01/23 14:22 07/01/23 14:22 07/01/23 14:22 07/01/23 14:22 07/01/23 14:22 07/01/23 14:22 07/01/23 14:22 Oxygen Flow Rate (L/min) 3 Oxygen Delivery Method Nasal Cannula Weight: 95.2 kg Body Mass Index (BMI) 30.0 Intake & Output: Intake and Output for Last 24 Hours 06/29/23 06/30/23 07/01/23 23:59 23:59 23:59 Intake Total 300 / 550 250 / 250 Output Total 1400 / 1400 950 / 950 1350 / 1350 Balance -1100 / -850 -700 / -700 -1350 / -1350 Lab / Micro Data 06/29/23 06:21 06/29/23 06:21 Physical Exam Narrative alert, oriented x3 and no apparent distress Constitutional Narrative: Patient appears older than his stated age General Appearance: cooperative, well kempt and well developed Orientation / Consciousness: awake, oriented to person, oriented to place and oriented to time HEENT normocephalic and moist oral mucous membranes Eyes PERRL, EOMs intact bilaterally and conjunctivae normal Neck supple, no JVD, thyroid normal and no carotid bruits General: trachea midline Resp normal respiratory effort, no retractions, no use of accessory muscles and clearto auscultation bilaterally Auscultation: Negative for rales, rhonchi or wheezes Cardio regular rate, regular rhythm, S1 normal heart sound, S2 normal heart sound, no murmurs, no rub and no gallops GI normal to inspection, nondistended, normoactive bowel sounds, soft to palpation,non-tender and non-distended Extremity no clubbing, cyanosis or edema Skin no rashes or lesions noted General Skin Exam: no breakdown Neuro oriented x3, CN's II-XII intact bilaterally, moves all extremities, no focal motor deficits and no sensory deficits noted Sensorium / Orientation: awake and alert Speech: speech normal Psych affect normal Assessment & Plan Assessment/Plan (1) Failure to thrive: PLAN: Plan 1. Acute debility secondary to deconditioning-PT and OT will continue to see the patient, he will need short-term placement in a halfway facility. #2 seizure disorder-patient states he takes Valium 10 mg twice daily as needed, he is also on Gabitril and phenobarbital #3 hyperlipidemia-patient is on atorvastatin #4 PTSD-patient is currently on prazosin #5 coronary artery disease-patient is currently on aspirin and Plavix, he is also on isosorbide #6 chronic hypoxic respiratory failure-patient remains on 3 L of oxygen via nasal cannula I do not feel the patient had rhabdomyolysis this admission Total clinical time spent by myself addressing the patient's medical issues, reviewing all of his data, and collaborating with patient's care team: 25 minutes Charges/Coding Visit Charges Inpatient E&M: 06813 Subs Hosp L1 07/01/231818 <Electronically signed by Kerry Herrera DO> Cosigner Signature (if applicable): CC: ~ Signed [facility] Work Phone: 1(662) 954-280804-23-2024 Progress note Author [facility] June 30, 2023 6:57pm Note Date/Time June 30, 2023 6:5 7pm [facility] Medical Records Department [address] [place] [address] Progress Note - Hospitalist 06/30/23 1855 MR#: [id number] Acct: [id number] Name: BEAR SHINE Rep #:[id number] : 1950 73 From: Kerry Herrera DO PCP: Dr. Kerry Burger, Status:ADM IN Location: [place] [id number] Subjective Subjective Patient was seen and examined today, he had an episode of chest pain and EKG wasperformed which was unremarkable. We are still awaiting approval for the patient to go to a halfway facility. Objective Data Objective Data Vital Signs: Vital Signs Temp Pulse Resp BP Pulse Ox O2 Del Method O2 Flow Rate 98.2 F 65 18 137/59 H 94 Nasal Cannula 3 06/30/23 14:15 06/30/23 14:15 06/30/23 14:15 06/30/23 14:15 06/30/23 14:15 06/30/23 14:31 06/30/23 14:31 Oxygen Flow Rate (L/min) 3 Oxygen Delivery Method Nasal Cannula Weight: 95.2 kg Body Mass Index (BMI) 30.0 Intake & Output: Intake and Output for Last 24 Hours 06/28/23 06/29/23 06/30/23 23:59 23:59 23:59 Intake Total 800 / 1100 300 / 550 250 / 250 Output Total 1350 / 1350 1400 / 1400 950 / 950 Balance -550 / -250 -1100 / -850 -700 / -700 Lab / Micro Data 06/29/23 06:21 06/29/23 06:21 Physical Exam Narrative alert, oriented x3 and no apparent distress Constitutional Narrative: Patient appears older than his stated age General Appearance: cooperative, well kempt and well developed Orientation / Consciousness: awake, oriented to person, oriented to place and oriented to time HEENT normocephalic and moist oral mucous membranes Eyes PERRL, EOMs intact bilaterally and conjunctivae normal Neck supple, no JVD, thyroid normal and no carotid bruits General: trachea midline Resp normal respiratory effort, no retractions, no use of accessory muscles and clearto auscultation bilaterally Auscultation: Negative for rales, rhonchi or wheezes Cardio regular rate, regular rhythm, S1 normal heart sound, S2 normal heart sound, no murmurs, no rub and no gallops GI normal to inspection, nondistended, normoactive bowel sounds, soft to palpation,non-tender and non-distended Extremity no clubbing, cyanosis or edema Skin no rashes or lesions noted General Skin Exam: no breakdown Neuro oriented x3, CN's II-XII intact bilaterally, moves all extremities, no focal motor deficits and no sensory deficits noted Sensorium / Orientation: awake and alert Speech: speech normal Psych affect normal Assessment & Plan Assessment/Plan (1) Failure to thrive: PLAN: Plan 1. Acute debility secondary to deconditioning-PT and OT will continue to see the patient, he will need short-term placement in a halfway facility. #2 seizure disorder-patient states he takes Valium 10 mg twice daily as needed, he is also on Gabitril and phenobarbital #3 hyperlipidemia-patient is on atorvastatin #4 PTSD-patient is currently on prazosin #5 coronary artery disease-patient is currently on aspirin and Plavix, he is also on isosorbide #6 chronic hypoxic respiratory failure I do not feel the patient had rhabdomyolysis this admission Total clinical time spent by myself addressing the patient's medical issues, reviewing all of his data, and collaborating with patient's care team: 25 minutes Charges/Coding Visit Charges Inpatient E&M: 35602 Subs Hosp L1 06/30/23 6551 <Electronically signed by Kerry Herrera DO> Cosigner Signature (if applicable): CC: ~ Signed [facility] Work Phone: 1(754) 348-592304-22-2024 Progress note Author Kerry [facility] June 29, 2023 4:09pm Note Date/Time June 29, 2023 4:0 9pm [facility] Medical Records Department [address] [facility] [place] [address] Progress Note - Hospitalist 06/29/23 1607 MR#: [id number] Acct: [id number] Name: BEAR SHINE Rep #:[id number] : 1950 73 From: Kerry Herrera DO PCP: Dr. Kerry Burger, DO Status:ADM IN Location: [place] [address] Subjective Subjective Patient was seen and examined today, he remains on supplemental nasal oxygen, patient does not complain of any shortness of breath Objective Data Objective Data Vital Signs: Vital Signs Temp Pulse Resp BP Pulse Ox O2 Del Method O2 Flow Rate 98.2 F 78 18 132/54 H 97 Nasal Cannula 3 06/29/23 13:20 06/29/23 13:20 06/29/23 13:20 06/29/23 13:20 06/29/23 13:20 06/29/23 13:22 06/29/23 14:25 Oxygen Flow Rate (L/min) 3 Oxygen Delivery Method Nasal Cannula Weight: 95.2 kg Body Mass Index (BMI) 30.0 Intake & Output: Intake and Output for Last 24 Hours 06/27/23 06/28/23 06/29/23 23:59 23:59 23:59 Intake Total 400 / 400 800 / 1100 300 / 300 Output Total 900 / 900 1350 / 1350 1400 / 1400 Balance -500 / -500 -550 / -250 -1100 / -1100 Lab / Micro Data 06/29/23 06:21 06/29/23 06:21 Labs: Laboratory Results - last 24 hr 06/29/23 06:21: WBC 6.9, RBC 4.57 L, Hgb 14.7, Hct 46.7, MCV 102.2 H, MCH 32.2 H, MCHC 31.5 L, RDW Std Deviation 48.3 H, RDW Coeff of Frantz 13.0, Plt Count 142 L,MPV 10.3, Immature Gran % (Auto) 4.200 H, Neut % (Auto) 62.8, Lymph % (Auto) 13.3 L, Avery % (Auto) 14.2 H, Eos % (Auto) 4.5, Baso % (Auto) 1.0, Absolute Neuts (auto) 4.3, Absolute Lymphs (auto) 0.92, Nucleated RBC % 0, Sodium 136, Potassium 4.1, Chloride 100, Carbon Dioxide 33.0 H, Anion Gap 3 L, BUN 15, Creatinine 1.22, Estim Creat Clear Calc 60.59, Est GFR (MDRD) Af Amer 74, Est GFR (MDRD) Non-Af 62, BUN/Creatinine Ratio 12.3, Glucose 127 H, Calcium 9.0, Total Bilirubin 0.40, AST 18, ALT 34, Alkaline Phosphatase 83, Total Protein 6.9, Albumin 3.1 L, Globulin 3.8, Albumin/Globulin Ratio 0.8 L Physical Exam Narrative alert, oriented x3 and no apparent distress Constitutional Narrative: Patient appears older than his stated age General Appearance: cooperative, well kempt and well developed Orientation / Consciousness: awake, oriented to person, oriented to place and oriented to time HEENT normocephalic and moist oral mucous membranes Eyes PERRL, EOMs intact bilaterally and conjunctivae normal Neck supple, no JVD, thyroid normal and no carotid bruits General: trachea midline Resp normal respiratory effort, no retractions, no use of accessory muscles and clearto auscultation bilaterally Auscultation: Negative for rales, rhonchi or wheezes Cardio regular rate, regular rhythm, S1 normal heart sound, S2 normal heart sound, no murmurs, no rub and no gallops GI normal to inspection, nondistended, normoactive bowel sounds, soft to palpation,non-tender and non-distended Extremity no clubbing, cyanosis or edema Skin no rashes or lesions noted General Skin Exam: no breakdown Neuro oriented x3, CN's II-XII intact bilaterally, moves all extremities, no focal motor deficits and no sensory deficits noted Sensorium / Orientation: awake and alert Speech: speech normal Psych affect normal Assessment & Plan Assessment/Plan (1) Failure to thrive: PLAN: Plan 1. Acute debility secondary to deconditioning-PT and OT will continue to see the patient, he will need short-term placement in a halfway facility. #2 seizure disorder-patient states he takes Valium 10 mg twice daily as needed, he is also on Gabitril and phenobarbital #3 hyperlipidemia-patient is on atorvastatin #4 PTSD-patient is currently on prazosin #5 coronary artery disease-patient is currently on aspirin and Plavix, he is also on isosorbide #6 chronic hypoxic respiratory failure I do not feel the patient had rhabdomyolysis this admission Total clinical time spent by myself addressing the patient's medical issues, reviewing all of his data, and collaborating with patient's care team: 25 minutes Charges/Coding Visit Charges Inpatient E&M: 60423 Subs Hosp L1 06/29/23 1609 <Electronically signed by Kerry Herrera DO> Cosigner Signature (if applicable): CC: ~ Signed [facility] Work Phone: 1(729) 282-592604-21-2024 Progress note Author Kerry Herrera [facility] June 28, 2023 2:57pm Note Date/Time June 28, 2023 2:4 8pm [facility] Medical Records Department [address] [place] [address] Progress Note - Hospitalist 06/28/23 1443 MR#: [id number] Acct: [id number] Name: BEAR SHINE Rep #:[id number] : 1950 73 From: Kerry Herrera DO PCP: Dr. Kerry Burger, Status:ADM IN [place] [facility] Subjective Subjective Patient was seen and examined today, patient remains on 3 L oxygen via nasal cannula, he has no complaints of shortness of breath Objective Data Objective Data Vital Signs: Vital Signs Temp Pulse Resp BP Pulse Ox O2 Del Method O2 Flow Rate 98.6 F 74 16 116/68 95 Nasal Cannula 3 06/28/23 11:46 06/28/23 11:46 06/28/23 11:46 06/28/23 11:46 06/28/23 11:46 06/28/23 14:20 06/28/23 14:20 Oxygen Flow Rate (L/min) 3 Oxygen Delivery Method Nasal Cannula Weight: 95.2 kg Body Mass Index (BMI) 30.0 Intake & Output: Intake and Output for Last 24 Hours 06/26/23 06/27/23 06/28/23 23:59 23:59 23:59 Intake Total 1931.25 / 1931.25 400 / 400 Output Total 500 / 500 900 / 900 700 / 700 Balance 1431.25 / 1431.25 -500 / -500 -700 / -700 Lab / Micro Data 06/28/23 06:41 06/28/23 06:41 Labs: Laboratory Results - last 24 hr 06/28/23 06:41: WBC 7.5, RBC 4.70, Hgb 15.3, Hct 48.4, MCV 103.0 H, MCH 32.6 H, MCHC 31.6 L, RDW Std Deviation 49.1 H, RDW Coeff of Frantz 12.8, Plt Count 138 L, MPV 10.3, Immature Gran % (Auto) 4.000 H, Neut % (Auto) 63.9, Lymph % (Auto) 12.9 L, Avery % (Auto) 14.5 H, Eos % (Auto) 3.1, Baso % (Auto) 1.6 H, Absolute Neuts (auto) 4.8, Absolute Lymphs (auto) 0.97, Nucleated RBC % 0, Sodium 135 L, Potassium 3.9, Chloride 100, Carbon Dioxide 33.0 H, Anion Gap 2 L, BUN 12, Creatinine 1.18, Estim Creat Clear Calc 62.64, Est GFR (MDRD) Af Amer 77, Est GFR (MDRD) Non-Af 64, BUN/Creatinine Ratio 10.2, Glucose 131 H, Calcium 8.9, Total Bilirubin 0.60, AST 23, ALT 40, Alkaline Phosphatase 81, Total Protein 6.9, Albumin 3.1 L, Globulin 3.8, Albumin/Globulin Ratio 0.8 L Physical Exam Narrative alert, oriented x3 and no apparent distress Constitutional Narrative: Patient appears older than his stated age General Appearance: cooperative, well kempt and well developed Orientation / Consciousness: awake, oriented to person, oriented to place and oriented to time HEENT normocephalic and moist oral mucous membranes Eyes PERRL, EOMs intact bilaterally and conjunctivae normal Neck supple, no JVD, thyroid normal and no carotid bruits General: trachea midline Resp normal respiratory effort, no retractions, no use of accessory muscles and clearto auscultation bilaterally Auscultation: Negative for rales, rhonchi or wheezes Cardio regular rate, regular rhythm, S1 normal heart sound, S2 normal heart sound, no murmurs, no rub and no gallops GI normal to inspection, nondistended, normoactive bowel sounds, soft to palpation,non-tender and non-distended Extremity no clubbing, cyanosis or edema Skin no rashes or lesions noted General Skin Exam: no breakdown Neuro oriented x3, CN's II-XII intact bilaterally, moves all extremities, no focal motor deficits and no sensory deficits noted Sensorium / Orientation: awake and alert Speech: speech normal Psych affect normal Assessment & Plan Assessment/Plan (1) Failure to thrive: PLAN: Plan 1. Acute debility secondary to deconditioning-PT and OT will continue to see the patient, he will need short-term placement in a halfway facility. #2 seizure disorder-patient states he takes Valium 10 mg twice daily as needed, he is also on Gabitril and phenobarbital #3 hyperlipidemia-patient is on atorvastatin #4 PTSD-patient is currently on prazosin #5 coronary artery disease-patient is currently on aspirin and Plavix, he is also on isosorbide #6 chronic hypoxic respiratory failure I do not feel the patient had rhabdomyolysis this admission Total clinical time spent by myself addressing the patient's medical issues, reviewing all of his data, and collaborating with patient's care team: 35 minutes Charges/Coding Visit Charges Inpatient E&M: 07640 Subs Hosp L2 06/28/23 6224 <Electronically signed by Kerry Herrera DO> Cosigner Signature (if applicable): CC: ~ Signed [facility] Work Phone: 1(958) 954-616304-20-2024 Progress note Author Kerry Herrera [facility] June 27, 2023 5:58pm Note Date/Time June 27, 2023 5:5 8pm [facility] Medical Records Department [address] [place] [address] Progress Note - Hospitalist 06/27/23 1752 MR#: [id number] Acct: [id number] Name: BEAR SHINE Rep #:[id number] : 1950 73 From: Kerry Herrera DO PCP: Dr. Kerry Burger, DO Status:ADM IN Location: [place] [address] Subjective Subjective Patient was seen and examined today, we are currently awaiting approval for the patient to go to a halfway facility for short-term rehab services. Objective Data Objective Data Vital Signs: Vital Signs Temp Pulse Resp BP Pulse Ox O2 Del Method O2 Flow Rate 99.4 F H 77 16 131/76 H 95 Nasal Cannula 3 06/27/23 15:29 06/27/23 15:29 06/27/23 15:29 06/27/23 15:29 06/27/23 15:29 06/27/23 15:29 06/27/23 15:29 Oxygen Flow Rate (L/min) 3 Oxygen Delivery Method Nasal Cannula Weight: 95.2 kg Body Mass Index (BMI) 30.0 Intake & Output: Intake and Output for Last 24 Hours 06/25/23 06/26/23 06/27/23 23:59 23:59 23:59 Intake Total 1931.25 / 1931.25 400 / 400 Output Total 500 / 500 900 / 900 Balance 1431.25 / 1431.25 -500 / -500 Lab / Micro Data 06/27/23 06:17 06/27/23 06:17 Labs: Laboratory Results - last 24 hr 06/27/23 06:17: WBC 6.4, RBC 4.70, Hgb 15.2, Hct 47.5, MCV 101.1 H, MCH 32.3 H, MCHC 32.0, RDW Std Deviation 48.3 H, RDW Coeff of Frantz 13.0, Plt Count 151, MPV 10.1, Immature Gran % (Auto) 3.600 H, Neut % (Auto) 63.4, Lymph % (Auto) 13.4 L,Avery % (Auto) 15.4 H, Eos % (Auto) 3.3, Baso % (Auto) 0.9, Absolute Neuts (auto)4.1, Absolute Lymphs (auto) 0.86, Nucleated RBC % 0, Sodium 137, Potassium 4.1, Chloride 103, Carbon Dioxide 32.0, Anion Gap 2 L, BUN 12, Creatinine 1.14, EstimCreat Clear Calc 64.84, Est GFR (MDRD) Af Amer 81, Est GFR (MDRD) Non-Af 67, BUN/Creatinine Ratio 10.5, Glucose 113 H, Calcium 8.5, Total Bilirubin 0.60, AST38 H, ALT 44, Alkaline Phosphatase 78, Total Protein 6.5, Albumin 3.2, Globulin 3.3, Albumin/Globulin Ratio 1.0 Physical Exam Const alert, oriented x3 and no apparent distress Constitutional Narrative: Patient appears older than his stated age General Appearance: cooperative, well kempt and well developed Orientation / Consciousness: awake, oriented to person, oriented to place and oriented to time HEENT normocephalic and moist oral mucous membranes Eyes PERRL, EOMs intact bilaterally and conjunctivae normal Neck supple, no JVD, thyroid normal and no carotid bruits General: trachea midline Resp normal respiratory effort, no retractions, no use of accessory muscles and clearto auscultation bilaterally Auscultation: Negative for rales, rhonchi or wheezes Cardio regular rate, regular rhythm, S1 normal heart sound, S2 normal heart sound, no murmurs, no rub and no gallops GI normal to inspection, nondistended, normoactive bowel sounds, soft to palpation,non-tender and non-distended Extremity no clubbing, cyanosis or edema Skin no rashes or lesions noted General Skin Exam: no breakdown Neuro oriented x3, CN's II-XII intact bilaterally, moves all extremities, no focal motor deficits and no sensory deficits noted Sensorium / Orientation: awake and alert Speech: speech normal Psych affect normal Assessment & Plan Assessment/Plan (1) Failure to thrive: PLAN: Plan 1. Acute debility secondary to deconditioning-PT and OT will continue to see the patient, he will need short-term placement in a halfway facility. #2 seizure disorder-patient states he takes Valium 10 mg twice daily as needed, he is also on Gabitril and phenobarbital #3 hyperlipidemia-patient is on atorvastatin #4 PTSD-patient is currently on prazosin #5 coronary artery disease-patient is currently on aspirin and Plavix, he is also on isosorbide I do not feel the patient had rhabdomyolysis Total clinical time spent by myself addressing the patient's medical issues, reviewing all of his data, and collaborating with patient's care team: 35 minutes Charges/Coding Visit Charges Inpatient E&M: 37679 Subs Hosp L2 06/27/23 9689 <Electronically signed by Kerry Herrera DO> Cosigner Signature (if applicable): CC: ~ Signed [facility] Work Phone: 1(700) 616-653004-19-2024 Progress note Author John Lemus [facility] June 26, 2023 12:50pm Note Date/Time June 26, 2023 7:3 1am [facility] Medical Records Department [address] [place] [address] Progress Note - Hospitalist 06/26/23726 MR#: [id number] Acct: [id number] Name: BEAR SHINE Rep #:[id number] : 1950 73 From: John Lemus DO PCP: Dr. Kerry Burger, Status:ADM IN Location: [place] [address] Subjective Subjective Fell again at home. He is clearly unable to care for himself. On the floor was noted to be purple but having pulse ox of 100%. Objective Data Objective Data Vital Signs: Vital Signs Temp Pulse Resp BP Pulse Ox O2 Del Method O2 Flow Rate 36.9 C 70 18 150/99 H 100 Nasal Cannula 2 06/26/23 05:54 06/26/23 05:54 06/26/23 05:54 06/26/23 05:54 06/26/23 05:56 06/26/23 05:56 06/26/23 05:56 Oxygen Flow Rate (L/min) 2 Oxygen Delivery Method Nasal Cannula Weight: 95.2 kg Body Mass Index (BMI) 30.0 Intake & Output: Intake and Output for Last 24 Hours 06/24/23 06/25/23 06/26/23 23:59 23:59 23:59 Intake Total 300 / 300 Output Total 500 / 500 Balance -200 / -200 Lab / Micro Data 06/26/23 07:57 06/26/23 07:57 Labs: Laboratory Results - last 24 hr 06/25/23 22:40: WBC 9.1, RBC 4.95, Hgb 16.1, Hct 50.3, MCV 101.6 H, MCH 32.5 H, MCHC 32.0, RDW Std Deviation 49.4 H, RDW Coeff of Frantz 13.2, Plt Count 157, MPV 10.6, Immature Gran % (Auto) 3.200 H, Neut % (Auto) 71.4 H, Lymph % (Auto) 10.3 L, Avery % (Auto) 10.8 H, Eos % (Auto) 3.3, Baso % (Auto) 1.0, Absolute Neuts (auto) 6.5, Absolute Lymphs (auto) 0.94, Nucleated RBC % 0, Sodium 138, Potassium 4.8, Chloride 104, Carbon Dioxide 29.0, Anion Gap 5, BUN 20 H, Creatinine 1.19, Est GFR (MDRD) Af Amer 77, Est GFR (MDRD) Non-Af 63, BUN/Creatinine Ratio 16.8, Glucose 121 H, Calcium 8.9, Total Creatine Kinase 387 H, Phenobarbital Cancelled 06/25/23 23:49: Phenobarbital 28.9 Radiography Diagnostic Testing: Radiology Impression Chest X-Ray 06/25/23 21:20 IMPRESSION: Diminished inspiratory effort but no acute cardiopulmonary pathology Electronically Signed: Ti Langston MD at 21:39 EDT , Physical Exam Const alert and no apparent distress Constitutional Narrative: eating eggs with his hands. Resp normal respiratory effort Neuro Sensorium / Orientation: awake Assessment & Plan Assessment/Plan (1) Failure to thrive: PLAN: Plan Adult FTT * PT/OT/case management consulted for discharge planning. * Pt fell after awaking from night terror and reportedly was unable to get up for 4 days. Fell again after being discharged home. Clearly, he cannot take care of himself and will require SNF. He is high-risk for injury due to falls. Acute mild rhabdomyolysis: * Mild. Admission total creatinine kinase very mildly elevated 832, improved to 350. * 2/2 fall. From the patient's description, it does not sound like a seizure. * Conintue gabapentin & phenobarbital home regimen * PRN ativan, fall precautions concurrently. * HLIV Seizure disorder * Patient states that he knows of the seizures, because he has headache and starts shaking and is able to pull self over but states he does lose consciousness at times. Not sure if what he describing is having seizures but I did explain to him if he is losing consciousness that he should not get behind the wheel. He states that he has something from the [facility] that certifies him to be able to drive. I told the patient I am not aware of this certification by the [facility] but he would actually require a physician to authorize him to drive and I doubt there would be any reputable physician, neurologist internal medicine etc. that would authorize someone who is having seizures to actively drive. I told the patient that he should not drive. He states that he cannot because he has a sling from the [facility]. I told him I am concerned that either he is lying to me or he has been misled by someone's that states that he has something from the [facility] that authorized him to drive w ith an active seizure disorder. * Whether or not he is actively having seizures or not but he is endorsing he is having loss of consciousness. That in itself is a reason for him not to drive. I told the patient that he should not get behind the wheel whatsoever and that if he were to cause an accident or injury that that may be possible by legal or possible other traditional means including long term. Chronic conditions: * Chronic Polycythemia: Admission hemoglobin 18.5, baseline appears primarily 17-18, does chronically smoke, no overt diagnosis noted in medical history, will continue to trend CBC. * CAD: Status post PCI, will continue aspirin, Plavix given CT head and cervical spine with no acute findings, additionally will continue statin, clarifying but recurrent list does not appear to be on beta-radha therapy or ТАТЬЯНА inhibitor/ARB. * Hypertension: Continue home regimen including isosorbide, PRN hydralazine. * Hyperlipidemia: Given mild rhabdo with discomfort we will temporally hold home statin therapy. * Chronic COPD with allergic rhinitis: Will maintain on oxygen with wean as tolerated to room air, continue ATC budesonide therapy, PRN albuterol, HOB, IS parameters, continue patient home montelukast home regimen. * Chronic Kidney Disease Stage III, unclear subtype: Admission BUN/Cr 20/1.53, GFR 47, baseline renal function primarily 1.4-1.6, repeat BMP in AM. * History prostate cancer: Status post TURP, from current medication list does not appear to be on chronic regimen but clarifying, encourage continued outpatient follow-up with urology as previously arranged. * PTSD: Clarifying but if appropriate no concern for sedation we will continue patient home diazepam regimen to avoid withdrawal especially. * Glaucoma: We will continue patient home eyedrop regimen. * GERD: Per current list not on regimen, clarifying, will have as needed Mylanta. * BPH: Patient on CT imaging does have enlarged prostate, not on any chronic regimen per current list but clarifying, encourage continued outpatient follow-up with urology. DVT prophylaxis: Heparin. CODE status: Full Disposition: to SNF. Charges/Coding Visit Charges Inpatient E&M: 80431 Subs Hosp L2 06/26/23 1250 <Electronically signed by John Lemus DO> Cosigner Signature (if applicable): CC: ~ Signed [facility] Work Phone: 1(431) 392-295304-19-2024 History and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 aspirin, Plavix given CT head and cervical spine with no acute findings, additionally will continue statin, clarifying but recurrent list does not appear to be on beta-radha therapy or ТАТЬЯНА inhibitor/ARB. * Hypertension: Continue home regimen including isosorbide, PRN hydralazine. * Hyperlipidemia: Given mild rhabdo with discomfort we will temporally hold home statin therapy. * Chronic COPD with allergic rhinitis: Will maintain on oxygen with wean as tolerated to room air, continue ATC budesonide therapy, PRN albuterol, HOB, IS parameters, continue patient home montelukast home regimen. * Chronic Kidney Disease Stage III, unclear subtype: Admission BUN/Cr 20/1.53, GFR 47, baseline renal function primarily 1.4-1.6, repeat BMP in AM. * History prostate cancer: Status post TURP, from current medication list does not appear to be on chronic regimen but clarifying, encourage continued outpatient follow-up with urology as previously arranged. * PTSD: Clarifying but if appropriate no concern for sedation we will continue patient home diazepam regimen to avoid withdrawal especially. * Glaucoma: We will continue patient home eyedrop regimen. * GERD: Per current list not on regimen, clarifying, will have as needed Mylanta. * BPH: Patient on CT imaging does have enlarged prostate, not on any chronic regimen per current list but clarifying, encourage continued outpatient follow-up with urology. DVT prophylaxis: Heparin. CODE status: Full Medications at Discharge Home Medications clopidogrel 75 mg tablet 75 mg PO DAILY ANTIPLATELET 03/03/14 aspirin 81 mg chewable tablet 81 mg PO DAILY@0800 HEART HEALTH 05/04/14 omega-3 fatty acids-fish oil 684 mg-1,200 mg capsule,delayed release 1 ea PO DAILY cholesterol 05/04/14 ascorbic acid (vitamin C) 500 mg tablet 500 mg PO DAILY@0800 SUPPLEMENT 04/03/15 trazodone 100 mg tablet 100 mg PO QHS MENTAL HEALTH/SLEEP 01/26/16 epinephrine 0.3 mg/0.3 mL injection, auto-injector 0.3 mg IM X1 PRN allergy 02/11/16 albuterol sulfate 90 mcg/actuation aerosol inhaler (ProAir HFA) 2 puff inhalation Q4H PRN shortness of breath or wheezing 03/05/17 isosorbide dinitrate 30 mg tablet 30 mg PO DAILY heart 01/07/18 simvastatin 20 mg tablet 20 mg PO QHS 02/13/18 cholecalciferol (vitamin D3) 50 mcg (2,000 unit) capsule 2,000 unit PO DAILY 05/26/19 phenobarbital 32.4 mg tablet 32.4 mg PO TID SEIZURES 05/26/19 mecobalamin (vitamin B12) 10,000 mcg solution for injection 10,000 mcg IM .q 2 weeks 01/18/21 phenobarbital 64.8 mg tablet 64.8 mg PO BID seizures 01/18/21 nitroglycerin 0.4 mg sublingual tablet 0.4 mg sublingual Q5M PRN Chest Pain #25 tabs 10/07/21 gabapentin 100 mg capsule 200 mg PO QHS 02/02/23 montelukast 10 mg tablet 10 mg PO DAILY PRN 02/02/23 cyclosporine 0.05 % eye drops in a dropperette (Restasis) 1 drp ophthalmic (eye)BID 06/22/23 netarsudil 0.02 % eye drops (Rhopressa) 1 drp LEFT EYE DAILY 06/22/23 olopatadine 0.1 % eye drops 1 drp ophthalmic (eye) BID 06/22/23 testosterone enanthate 200 mg/mL intramuscular oil 200 mg IM UD 06/22/23 timolol maleate 0.5 % eye drops 1 drp ophthalmic (eye) BID 06/22/23 diazepam 10 mg tablet 10 mg PO BID PRN seizure activity #1 TAB 06/25/23 Hospital Course Operations None Procedures None Summary of Care Provided Minutes Spent on Discharge: 45 Hospital Course: Patient was found on the floor in his house. Patient stated that he woke from anight terror and fell to the ground was unable to get up. There was Some concern initially that he had a seizure but the patient did not report that to me. Patient has mild rhabdo with CPK of 800 but that did resolve with IV fluids. Anticipation was the patient go to a halfway facility but he actually did pretty well with therapy so the plan is for him to go home with home care. Patient has reported history of seizures which she is on gabapentin as well as phenobarbital for as well as as needed diazepam. Patient states that he gets these spells where he gets headache and starts tremoring is able to pull self over and then occasionally will lose consciousness but many times he does not lose consciousness. I question if he does have an underlying seizure disorder given his description or released these events that he is describing are possibly not seizures. Patient states that he has a card from the [facility] that states that he is authorized to drive. I told the patient directly that that is highly unlikely as I have never encountered any physician signing off on any patient with seizure disorder who is actively having events to be able to drive. But he states that he has it from the [facility] prescribed to be BMV. I think that is highly suspected and I am concerned the patient may be fabricating that information. I did address this directly also with the patient that he may be either making this up or he has been misled by someone that this is actually a legitimate card. He did become very confrontational saying that he can drive and I told him that he if he were to cause an accident or an injury that he could either BCU or possibly even go to snf. He was dismissive of that though he did express understanding. So would be concerned if patient does have some ulterior motives regards to getting things such as diazepam the same that he is having seizures so that he can prescribe that. I do recommend that the diazepambeing to weaned off as he has a very poor performance status at baseline and that medication is risky. I have delineated that on his discharge MAR. Weight / BMI Weight Weight: 97 kg Body Mass Index (BMI) 30.6 ABG / Lab / Microbiology Data 06/23/23 06:24 06/23/23 06:24 D/C Instructions Discharge Diet: Low fat / Low cholesterol Discharge Activity: May Not Drive Meaningful Use Info Meaningful Use Meaningful Use Diagnoses (Choose all that apply): None applicable Ischemic Stroke Statin Dosing Therapy Reference: STATIN DOSE THERAPY REFERENCE: * Patients > 75 years receive moderate or high dose statin therapy. * Patients 75 years or YOUNGER should receive HIGH intensity statin dose unless contraindicated. You will be required to document reason for non-treatment if statin daily dose does not meet guidelines. HIGH DOSE STATIN THERAPY DAILY Atorvastatin > than or = to 40 mg Rosuvastatin > than or = to 20 mg Amlodipine + Atorvastatin > than or = to 2.5/40 mg Ezetimibe + Simvastatin 10/80 mg Simvastatin 80mg Discharge Plan Admission Admit Date/Time: 06/22/23 16:32 Primary Reason for Your Visit: Weakness Attending Provider: John Lemus Primary Care Provider: Kerry Burger Consulting Providers: Irlanda Ruiz Instructions Additional Instructions / Restrictions: You presented with weakness with reported being on the floor anywhere from 4 to 5 days. Your courses here was pretty uncomplicated. He did receive some IV fluids but seem to be responding well since then. You tell me that you have seizures which where you started headache and tremorbut are able to pull her self off the road. And you did mention that on severaloccasions that you do lose consciousness. Was not you are having seizures but if you are lose consciousness this is actually a contraindication to driving andyou should not drive for at least 6 months until you are event free. If you continue to drive you pose a risk to yourself as well as others. Discharge Orders/Prescriptions Prescriptions: Continued albuterol sulfate [ProAir HFA] 90 mcg/actuation HFA aerosol inhaler 2 puff INHALATION Q4H PRN (Reason: shortness of breath or wheezing) mecobalamin (vitamin B12) 10,000 mcg recon soln 10,000 mcg IM .q 2 weeks clopidogrel 75 MG tablet 75 mg PO DAILY Patient Comments: Blood thinner aspirin 81 MG tablet,chewable 81 mg PO DAILY@0800 Patient Comments: Blood thinner for heart health omega-3 fatty acids-fish oil 1 EACH capsule,delayed release(DR/EC) 1 ea PO DAILY Patient Comments: Supplement trazodone 100 MG tablet 100 mg PO QHS Patient Comments: Sleep ascorbic acid (vitamin C) 500 MG tablet 500 mg PO DAILY@0800 Patient Comments: Supplement epinephrine 0.3 MG syringe 0.3 mg IM X1 PRN (Reason: allergy) isosorbide dinitrate 30 MG tablet 30 mg PO DAILY simvastatin 20 MG tablet 20 mg PO QHS phenobarbital 64.8 mg tablet 64.8 mg PO BID Rx Instructions: with 32.4mg cholecalciferol (vitamin D3) 2,000 UNIT capsule 2,000 unit PO DAILY phenobarbital 32.4 MG tablet 32.4 mg PO TID gabapentin 100 mg capsule 200 mg PO QHS Patient Comments: TAKE 2 CAPSULES BY MOUTH ONCE DAILY AT BEDTIME montelukast 10 mg tablet 10 mg PO DAILY PRN Patient Comments: take 1 tablet by mouth once daily olopatadine 0.1 % drops 1 drp ophthalmic (eye) BID testosterone enanthate 200 mg/mL oil 200 mg IM UD Rx Instructions: Q2W timolol maleate 0.5 % drops 1 drp ophthalmic (eye) BID cyclosporine [Restasis] 0.05 % dropperette 1 drp ophthalmic (eye) BID Rhopressa 0.02 % drops 1 drp LEFT EYE DAILY nitroglycerin 0.4 mg tablet, sublingual 0.4 mg SUBLINGUAL Q5M PRN (Reason: Chest Pain) Qty: 25 6RF Changed diazepam 10 MG tablet 10 mg PO BID PRN (Reason: seizure activity) Qty: 1 0RF Rx Instructions: 2 tabs as needed twice daily for 1 week, then 1 tab daily as needed for 1 week, then half a tab daily as needed for 1 week, then half a tab every other day as needed for 1 week, then half a tab every 3 days as needed for 1 week then stop. Discontinued oxycodone 10 mg tablet 10 mg PO TID PRN (Reason: Pain 1-10 Or Fever) Referrals / Follow Up: Kerry Burger DO [Primary Care Provider] - Within 2 Weeks Disposition Disposition (needs filled in before D/C Order can be placed): Home Health Service Charges/Coding Visit Charges Inpatient E&M: 22680 Disch Hosp >30min 06/25/23 1126 <Electronically signed by John Lemus DO> Cosigner Signature (if applicable): CC: Dr. John Lemus DO; Dr. Kerry Burger DO~ Signed [facility] Work Phone: [phone] [facility] Medical Records Department [address] [place] [id number] Discharge Summary 06/25/23 1117 MR#: [id number] Acct: [id number] Name: BEAR SHINE Rep #: [id number] : 1950 73 From: John Lemus DO PCP: Dr. Kerry Harpreet, DO Status:ADM IN Location: MS3 [id number] Providers Date of Admission: 06/22/23 Primary Care Physician: Dr. Kerry Burger, DO Reason For Visit: FALL, MILD RHABDO, SEIZURE Diagnosis Discharge Diagnosis (1) Rhabdomyolysis: Status: Acute Code(s): M62.82 - Rhabdomyolysis Plan Adult FTT * PT/OT/case management consulted for discharge planning. * Pt fell after awaking from night terror and reportedly was unable to get up for 4 days. Acute mild rhabdomyolysis: * Admission total creatinine kinase very mildly elevated 832, improved to 350. * 2/2 fall. From the patient's description, it does not sound like a seizure. * Conintue gabapentin phenobarbital home regimen * PRN ativan, fall precautions concurrently. Seizure disorder * Patient states that he knows of the seizures, because he has headache and starts shaking and is able to pull self over but states he does lose consciousness at times. Not sure if what he describing is having seizures but I did explain to him if he is losing consciousness that he should not get behind the wheel. He states that he has something from the [facility] that certifies him to be able to drive. I told the patient I am not aware of this certification by the [facility] but he would actually require a physician to authorize him to drive and I doubt there would be any reputable physician, neurologist internal medicine etc. that would authorize someone who is having seizures to actively drive. I told the patient that he should not drive. He states that he cannot because he has a sling from the [facility]. I told him I am concerned that either he is lying to me or he has been misled by someone's that states that he has something from the [facility] that authorized him to drive with an active seizure disorder. * Whether or not he is actively having seizures or not but he is endorsing he is having loss of consciousness. That in itself is a reason for him not to drive. I told the patient that he should not get behind the wheel whatsoever and that if he were to cause an accident or injury that that may be possible by legal or possible other traditional means including long term. Chronic conditions: * Chronic Polycythemia: Admission hemoglobin 18.5, baseline appears primarily 17-18, does chronically smoke, no overt diagnosis noted in medical history, will continue to trend CBC. * CAD: Status post PCI, will continue aspirin, Plavix given CT head and cervical spine with no acute findings, additionally will continue statin, clarifying but recurrent list does not appear to be on beta-radha therapy or ТАТЬЯНА inhibitor/ARB. * Hypertension: Continue home regimen including isosorbide, PRN hydralazine. * Hyperlipidemia: Given mild rhabdo with discomfort we will temporally hold home statin therapy. * Chronic COPD with allergic rhinitis: Will maintain on oxygen with wean as tolerated to room air, continue ATC budesonide therapy, PRN albuterol, HOB, IS parameters, continue patient home montelukast home regimen. * Chronic Kidney Disease Stage III, unclear subtype: Admission BUN/Cr 20/1.53, GFR 47, baseline renal function primarily 1.4-1.6, repeat BMP in AM. * History prostate cancer: Status post TURP, from current medication list does not appear to be on chronic regimen but clarifying, encourage continued outpatient follow-up with urology as prev iously arranged. * PTSD: Clarifying but if appropriate no concern for sedation we will continue patient home diazepam regimen to avoid withdrawal especially. * Glaucoma: We will continue patient home eyedrop regimen. * GERD: Per current list not on regimen, clarifying, will have as needed Mylanta. * BPH: Patient on CT imaging does have enlarged prostate, not on any chronic regimen per current list but clarifying, encourage continued outpatient follow-up with urology. DVT prophylaxis: Heparin. CODE status: Full Medications at Discharge Home Medications clopidogrel 75 mg tablet 75 mg PO DAILY ANTIPLATELET 03/03/14 aspirin 81 mg chewable tablet 81 mg PO DAILY@0800 HEART HEALTH 05/04/14 omega-3 fatty acids-fish oil 684 mg-1,200 mg capsule,delayed release 1 ea PO DAILY cholesterol 05/04/14 ascorbic acid (vitamin C) 500 mg tablet 500 mg PO DAILY@0800 SUPPLEMENT 04/03/15 trazodone 100 mg tablet 100 mg PO QHS MENTAL HEALTH/SLEEP 04/03/15 epinephrine 0.3 mg/0.3 mL injection, auto-injector 0.3 mg IM X1 PRN allergy 02/11/16 albuterol sulfate 90 mcg/actuation aerosol inhaler (ProAir HFA) 2 puff inhalation Q4H PRN shortness of breath or wheezing 03/05/17 isosorbide dinitrate 30 mg tablet 30 mg PO DAILY heart 01/07/18 simvastatin 20 mg tablet 20 mg PO (more content not included)...[facility]04-18-2024 Progress note Author John Lemus [facility] June 25, 2023 11:16am Note Date/Time June 25, 2023 7:4 0am [facility] Medical Records Department [address] [place] [address] Progress Note - Hospitalist 06/25/23 0739 MR#: [id number] Acct: [id number] Name: BEAR SHINE Rep #:[id number] : 1950 73 From: John Lemus DO PCP: Dr. Kerry Burger DO Status:ADM IN [place] [facility] [id number] Reason for Visit Reason for Visit: Diagnoses Rhabdomyolysis (06/22/23) Subjective Subjective No new events. Feels ready to go home. Objective Data Objective Data Vital Signs: Vital Signs Temp Pulse Resp BP Pulse Ox O2 Del Method O2 Flow Rate 36.7 C 64 18 117/54 L 97 Nasal Cannula 2 06/25/23 02:49 06/25/23 02:49 06/25/23 02:49 06/25/23 02:49 06/25/23 02:49 06/25/23 02:56 06/25/23 02:56 Oxygen Flow Rate (L/min) 2 Oxygen Delivery Method Nasal Cannula Weight: 97 kg Body Mass Index (BMI) 30.6 Intake & Output: Intake and Output for Last 24 Hours 06/23/23 06/24/23 06/25/23 23:59 23:59 23:59 Intake Total 2740 / 2990 2050 / 3050 1600 / 1600 Output Total 200 / 200 1400 / 2750 2100 / 2100 Balance 2540 / 2790 650 / 300 -500 / -500 Lab / Micro Data 06/23/23 06:24 06/23/23 06:24 Physical Exam Const Constitutional Narrative: Demeanor. Flat affect. Picks up the phone with his home nurse and made no effort to try to get the phone with her while is present in the room. Did startbecoming confrontational saying that he cannot drive and I told him he should not be driving if he is actively having seizures. Assessment & Plan Assessment/Plan (1) Rhabdomyolysis: PLAN: Plan Adult FTT * PT/OT/case management consulted for discharge planning. * Pt fell after awaking from night terror and reportedly was unable to get up for 4 days. Acute mild rhabdomyolysis: * Admission total creatinine kinase very mildly elevated 832, improved to 350. * 2/2 fall. From the patient's description, it does not sound like a seizure. * Conintue gabapentin & phenobarbital home regimen * PRN ativan, fall precautions concurrently. Seizure disorder * Patient states that he knows of the seizures, because he has headache and s tarts shaking and is able to pull self over but states he does lose consciousness at times. Not sure if what he describing is having seizures but I did explain to him if he is losing consciousness that he should not get behind the wheel. He states that he has something from the [facility] that certifies him to be able to drive. I told the patient I am not aware of this certification by the [facility] but he would actually require a physician to authorize him to drive and I doubt there would be any reputable physician, neurologist internal medicine etc. that would authorize someone who is having seizures to actively drive. I told the patient that he should not drive. He states that he cannot because he has a sling from the [facility]. I told him I am concerned that either he is lying to me or he has been misled by someone's that states that he has something from the [facility] that authorized him to drive with an active seizure disorder. * Whether or not he is actively having seizures or not but he is endorsing he is having loss of consciousness. That in itself is a reason for him not to drive. I told the patient that he should not get behind the wheel whatsoever and that if he were to cause an accident or injury that that may be possible by legal or possible other traditional means including long term. Chronic conditions: * Chronic Polycythemia: Admission hemoglobin 18.5, baseline appears primarily 17 -18, does chronically smoke, no overt diagnosis noted in medical history, will continue to trend CBC. * CAD: Status post PCI, will continue aspirin, Plavix given CT head and cervical spine with no acute findings, additionally will continue statin, clarifying but recurrent list does not appear to be on beta-radha therapy or ТАТЬЯНА inhibitor/ARB. * Hypertension: Continue home regimen including isosorbide, PRN hydralazine. * Hyperlipidemia: Given mild rhabdo with discomfort we will temporally hold home statin therapy. * Chronic COPD with allergic rhinitis: Will maintain on oxygen with wean as tolerated to room air, continue ATC budesonide therapy, PRN albuterol, HOB, IS parameters, continue patient home montelukast home regimen. * Chronic Kidney Disease Stage III, unclear subtype: Admission BUN/Cr 20/1.53, GFR 47, baseline renal function primarily 1.4-1.6, repeat BMP in AM. * History prostate cancer: Status post TURP, from current medication list does not appear to be on chronic regimen but clarifying, encourage continued outpatient follow-up with urology as previously arranged. * PTSD: Clarifying but if appropriate no concern for sedation we will continue patient home diazepam regimen to avoid withdrawal especially. * Glaucoma: We will continue patient home eyedrop regimen. * GERD: Per current list not on regimen, clarifying, will have as needed Mylanta. * BPH: Patient on CT imaging does have enlarged prostate, not on any chronic regimen per current list but clarifying, encourage continued outpatient follow-up with urology. DVT prophylaxis: Heparin. CODE status: Full 06/25/23 1116 <Electronically signed by John Lemus DO> Cosigner Signature (if applicable): CC: ~ Signed [facility] Work Phone: 1(729) 463-102204-17-2024 Progress note Author John Lemus [facility] June 24, 2023 12:16pm Note Date/Time June 24, 2023 7:3 4am [facility] Medical Records Department [address] [place] [address] Progress Note - Hospitalist 06/24/23 0732 MR#: [id number] Acct: [id number] Name: BEAR SHINE Rep #:[id number] : 1950 73 From: John Lemus DO PCP: Dr. Kerry Burger, Status:ADM IN [place] [facility] [id number] Reason for Visit Reason for Visit: Diagnoses Rhabdomyolysis (06/22/23) Subjective Subjective Complaining of diffuse pain. Objective Data Objective Data Vital Signs: Vital Signs Temp Pulse Resp BP Pulse Ox O2 Del Method O2 Flow Rate 36.8 C 60 18 129/62 H 94 Nasal Cannula 2 06/24/23 05:04 06/24/23 06:49 06/24/23 06:49 06/24/23 05:04 06/24/23 06:49 06/24/23 06:49 06/24/23 06:49 Oxygen Flow Rate (L/min) 2 Oxygen Delivery Method Nasal Cannula Weight: 91.2 kg Body Mass Index (BMI) 28.8 Intake & Output: Intake and Output for Last 24 Hours 06/22/23 06/23/23 06/24/23 23:59 23:59 23:59 Intake Total 1999 2740 / 2990 550 / 550 Output Total 200 / 200 1400 / 1400 Balance 1999 260 2540 / 2790 -850 / -850 Lab / Micro Data 06/23/23 06:24 06/23/23 06:24 Labs: Laboratory Results - last 24 hr 06/22/23 14:20: Diff Path Review Reviewed 06/23/23 06:24: Sodium 138, Potassium 3.8, Chloride 107, Carbon Dioxide 28.0, Anion Gap 3 L, BUN 21 H, Creatinine 1.23, Estim Creat Clear Calc 58.92, Est GFR (MDRD) Af Amer 74, Est GFR (MDRD) Non-Af 61, BUN/Creatinine Ratio 17.1, Glucose 91, Calcium 7.2 L, Total Bilirubin 0.50, AST 23, ALT 25, Alkaline Phosphatase 71, Total Creatine Kinase 350 H, Total Protein 5.9 L, Albumin 3.0 L, Globulin 2.9, Albumin/Globulin Ratio 1.0 Physical Exam Const alert and no apparent distress HEENT head/scalp atraumatic Resp normal respiratory effort, no retractions, no use of accessory muscles and clearto auscultation bilaterally Cardio regular rate, regular rhythm, S1 normal heart sound and S2 normal heart sound GI normal to inspection, nondistended, normoactive bowel sounds, soft to palpation,non-tender and non-distended Neuro Sensorium / Orientation: awake and alert Assessment & Plan Assessment/Plan (1) Rhabdomyolysis: PLAN: Plan Adult FTT * PT/OT/case management consulted for discharge planning. * Pt fell after awaking from night terror and reportedly was unable to get up for 4 days. Acute mild rhabdomyolysis: * Admission total creatinine kinase very mildly elevated 832, improved to 350. * 2/2 fall. From the patient's description, it does not sound like a seizure. * Conintue gabapentin & phenobarbital home regimen * PRN ativan, fall precautions concurrently. Chronic conditions: * Chronic Polycythemia: Admission hemoglobin 18.5, baseline appears primarily 17-18, does chronically smoke, no overt diagnosis noted in medical history, will continue to trend CBC. * CAD: Status post PCI, will continue aspirin, Plavix given CT head and cervical spine with no acute findings, additionally will continue statin, clarifying but recurrent list does not appear to be on beta-radha therapy or ТАТЬЯНА inhibitor/ARB. * Hypertension: Continue home regimen including isosorbide, PRN hydralazine. * Hyperlipidemia: Given mild rhabdo with discomfort we will temporally hold home statin therapy. * Chronic COPD with allergic rhinitis: Will maintain on oxygen with wean as tolerated to room air, continue ATC budesonide therapy, PRN albuterol, HOB, IS parameters, continue patient home montelukast home regimen. * Chronic Kidney Disease Stage III, unclear subtype: Admission BUN/Cr 20/1.53, GFR 47, baseline renal function primarily 1.4-1.6, repeat BMP in AM. * History prostate cancer: Status post TURP, from current medication list does not appear to be on chronic regimen but clarifying, encourage continued outpatient follow-up with urology as previously arranged. * PTSD: Clarifying but if appropriate no concern for sedation we will continue patient home diazepam regimen to avoid withdrawal especially. * Glaucoma: We will continue patient home eyedrop regimen. * GERD: Per current list not on regimen, clarifying, will have as needed Mylanta . * BPH: Patient on CT imaging does have enlarged prostate, not on any chronic regimen per current list but clarifying, encourage continued outpatient follow-up with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 S12.9XXA Fungal infection of the groin B35.6 Insomnia G47.00 PTSD (post-traumatic stress disorder) F43.10 Fall W19.XXXA Seizure ([facility]) R56.9 Impaired gait R26.9 Acute traumatic pain G89.11 Memory loss R41.3 Palliative care encounter Z51.5 Post-traumatic seizures ([facility]) R56.1 Trauma T14.90XA Urinary retention R33.9 Obesity (BMI 30-39.9) E66.9 Closed nondisplaced lateral mass fracture of first cervical vertebra ([facility]) S12.041A Fracture T14.8XXA Polypharmacy Z79.899 Seizures ([facility]) R56.9 At risk for confusion Z91.89 Drug-induced constipation K59.03 Breakthrough seizure ([facility]) G40.919 Isolation/Infection: Isolation No Isolation Patient [...] Assisted Dressing Assisted Toileting Assisted Feeding Independent Packing Room Supervisor Independent Med Delivery whole Wound Care Documentation [...] Wound Image 05/16/21 2340 Wound Etiology Traumatic 05/22/21820 Dressing Status Clean;Dry;Intact 05/18/212324 Dressing/Treatment Open to air 05/21/212199 Wound Assessment [place]/red 05/18/211999 Drainage Amount None 05/18/211999 Odor None 05/18/211999 Millicent-wound Assessment Dry/flaky 05/18/211999 Number of days: 6 Wound 05/16/21 Toe (Comment which one) Left Left 5th toe (Active) Wound Image 05/16/21 2340 Wound Etiology Traumatic 05/21/211034 Dressing Status Clean;Dry;Intact 05/18/212324 Dressing/Treatment Open to air 05/18/212324 Wound Assessment [place]/red 05/18/211999 Drainage Amount None 05/18/211999 Odor None 05/18/211999 Millicent-wound Assessment Intact 05/18/211999 [...] (for information only, NOT a DME order): {EQUIPMENT:[id number]} Other Treatments: n/a Patient's personal belongings (please select all that are sent with patient): Clothing lining brusher RN SIGNATURE: CASE MANAGEMENT/SOCIAL WORK SECTION Inpatient Status Date: Readmission Risk Assessment Score: Readmission Risk Risk of Unplanned Readmission: 10 Discharging to Facility/ Agency Name: [facility] Address: [address] [place] [address] Dialysis Facility (if applicable) Name: Address: Dialysis Schedule: Phone: Fax: [phone] [phone] Armor Crewman/Manager Cargo signature: PHYSICIAN SECTION Prognosis: Good Condition at Discharge: Stable Rehab Potential (if transferring to Rehab): Good Recommended Labs or Other Treatments After Discharge: PT/OT Physician Certification: I certify the above information and transfer of Bear Shine is necessary for the continuing treatment of the diagnosis listed and that he requires Residential Facility for less 30 days. Update Admission H&P: No change in H&P PHYSICIAN SIGNATURE: * Additional Instructions* Aram Encinas MD - 05/17/2021 Images from [...] Simpson in 1-2 weeks documented in this [email or web address] Work Phone: 1(655) 331-528003-17-2022 History of Present illness Narrative* YAHIR Patel CNP - 05/23/2021 6:24 AM EDT Daily Trauma Progress Note NANDO 05/23/2021 6:24 [...] BID YAHIR Jones CNP Given at 05/22/212020 otybyozdqh-caahvddatyqyu-wtbghrte (FIORICET, ESGIC) per tablet 1 tablet 1 tablet Oral Q6H PRN YAHIR Jones CNP acetaminophen (TYLENOL) tablet 650 mg 650 mg Oral 3 times per day YAHIR Jones CNP 650 mgat 05/23/21 06 nicotine (NICODERM CQ) 21 MG/24HR 1 patch 1 patch TransDERmal Daily YAHIR Jones CNP 1 patch at 05/22/211932 naloxone (NARCAN) injection 0.4 mg 0.4 mg IntraVENous PRN YAHIR Jones CNP pregabalin (LYRICA) capsule 25 mg 25 mg Oral BID Duy Caldera MD 25 mg at 05/22/212014 isosorbide dinitrate (ISORDIL) tablet 30 mg 30 mg Oral Daily Pk Pruitt APRN - [employer]TRY GOODS MAKER 30 mg at 05/22/21 0833 amLODIPine (NORVASC) tablet 5 mg 5 mg Oral Daily Pk Pruitt APRN - [employer] 5 mg at 05/22/21 0834 polyethylene glycol (GLYCOLAX) packet 17 g 17 g Oral Daily Pk Pruitt APRN - [employer] 17 g at 05/22/21 0832 senna (SENOKOT) tablet 8.6 mg 1 tablet Oral Nightly Pk Pruitt APRN - [employer] 8.6 mg at 05/22/212018 tamsulosin (FLOMAX) capsule 0.4 mg 0.4 mg Oral Daily Pk Pruitt APRN - [employer] 0.4 mg at 05/22/21 0832 oxyCODONE (ROXICODONE) immediate release tablet 10 mg 10 mg Oral Q4H PRN Bienvenido Mcleod MD 10 mg at05/23/21 0211 lidocaine 4 % external patch 1 patch [...] Q4H PRN Bienvenido Mcleod MD 10 mg at05/20/212135 hydrALAZINE (APRESOLINE) injection 10 mg 10 mg [...] IntraVENous 2 times per day Bienvenido Mcleod MD10 mL at 05/22/212017 sodium chloride flush 0.9 % injection 5-40 [...] clear. Eyes: Conjunctiva/sclera: Conjunctivae normal. Neck: Comments: [place] collar in place Cardiovascular: Rate and Rhythm: [...] Sutures or tammy? No O2: 3 L ME, states he has home O2 that he [...] Radiology ACCESSION EXAM DATE/TIME PROCEDURE ORDERING PROVIDER [id number] 05/17/2021 09:44 EST CR Spine Cervical 2 or 3SMD MARJORIE, NERISSA Views CPT code 12945 Reason For Exam (CR Spine Cervical 2 [...] MD NIELSON JEFFREY Transcribed Date and Time: 0 05/18/2021 5:25 XR SHOULDER LEFT 1 VW Result Date: 05/17/2021 Patient Name: BEAR SHINE Diagnostic Radiology ACCESSION EXAM DATE/TIME PROCEDURE ORDERING PROVIDER [id number] 05/17/2021 02:25 EST CR Shoulder 1 View Left MD NEGRON BLAKE CPT code 68026 Reason For Exam (CR Shoulder 1 View [...] definite fracture or dislocation. Report Dictated on Workst ation: [id number] --- Final --- Dictated: 05/17/2021 3:51 am Dictating Physician: MD NIELSON JEFFREY Signed Date and Time: 05/17/2021 3:53 am Signed by: MD NIELSON JEFFREY Transcribed Date and Time: 05/17/2021 3:51 CT HEAD WO CONTRAST Result Date: 05/17/2021 Patient Name: BEAR SHINE Computed Tomography ACCESSION EXAM DATE/TIME PROCEDURE ORDERING PROVIDER [id number] 05/17/2021 05:[address] Head or Brain w/o [id number] -PIA, MIGUEL ANGEL Contrast CPT code 80808 Reason For Exam (CT Head or Brain w/o Contrast) repeat CT head, fall on blood thinners, forehead abrasion, known C1 fx. No earlier than 04:[address] HEAD: CLINICAL INDICATION: Trauma with known C1 fracture with previous images from [facility] TECHNIQUE: Transaxial CT sequence performed through the [...] Dictated on --- Final --- Dictated: 05/17/2021 6:17am Dictating Physician: MD NIELSON JEFFREY Signed Date and Time: 05/17/2021 6:21 am Signed by: MD NIELSON JEFFREY Transcribed Date and Time: 05/17/2021 6:18 CTA NECK W WO CONTRAST Result Date: 05/17/2021 Patient Name: BEAR SHINE [facility]#: [id number] Computed Tomography ACCESSION EXAM DATE/TIME PROCEDURE ORDERING PROVIDER [id number] 05/17/2021 05:31 EST CTA Neck w/ + w/o MD JAMIL, NERISSA Contrast CPT code 22576 Q9967 Reason For Exam (CTA Neck w/ + w/o Contrast) C1 Fracture Report CT ANGIOGRAPHY NECK: CLINICAL INDICATION: Trauma with known C1 fracture with previous images from [facility] TECHNIQUE: Multidetector spiral transaxial sequence was performed fromthe upper mediastinum through the skull base during dynamic intravenous infusion of 75 mL of nonionic contrast media, injected at a high flow rate following a university president study. Images were reconstructed with soft tissue [...] lateral mass of C1 is noted as identifiedon CT head and prior CT cervical spine. [...] Physician: MD NIELSON JEFFREY Signed Date and Time:05/17/2021 6:35 am Signed by: MD NIELSON JEFFREY Transcribed Date and Time: 05/17/2021 6:22 CT THORACIC SPINE WO CONTRAST Result Date: 05/17/2021 Patient Name: BEAR SHINE [facility]#: [id number] Computed Tomography ACCESSION EXAM DATE/TIME PROCEDURE ORDERING PROVIDER [id number] 05/17/2021 05:[address] Spine Thoracic w/o MD JAMIL, NERISSA Contrast CPT code 60575 Reason For Exam (CT Spine Thoracic w/o [...] aspect of these vertebrae as well. No otherlytic bone lesion is identified. The facet joints demonstrate minor hypertrophic change at L4-L5 and L5-S1. Intervertebral disc spaces and spinal canal: Generalized disc space narrowing is noted throu ghout the thoracic levels. Lumbar disc levels demonstrate minor narrowing at L4- L5. There is no widening of the disc spaces. There is minor bony foraminal spinal stenosis at L4-L5 without other bony spinal stenosis. Soft tissues: Visualized portions of the lungs demonstrate dependent atelectasis. There is no consolidation. Cardiac chambers are relatively large. There is coronary artery calcification. No mediastinal or hilar mass is noted on this noncontrast study. Adrenals, pancreas and kidneysdemonstrate no abnormality. There is dense atherosclerotic calcified abdominal aorta. No enlarged retroperitoneal lymph nodes are noted. IMPRESSION: 1. No thoracic or lumbar fracture identified 2. Bull wing ossification about the anterior aspect of the vertebrae from T3-L2 corresponding to diffuse idiopathic skeletal hyperostosis. 3. Minor bony spinal stenosis at L4-L5 Computed Tomography Report Report Dictated on --- Final --- Dictated: 05/17/2021 6:36 am Dictating Physician: MD NIELSON JEFFREY Signed Date and Time: 05/17/2021 6:42 am Signed by: MD NIELSON JEFFREYTranscribed Date and Time: 05/17/2021 6:36 CT LUMBAR SPINE WO CONTRAST Result Date: 05/17/2021 Patient Name: BEAR SHINE Computed Tomography ACCESSION EXAM DATE/TIME PROCEDURE ORDERING PROVIDER [id number] 05/17/2021 05:[address] Spine Lumbar w/o MD JAMIL, NERISSA Contrast CPT code 71829 Reason For Exam (CT Spine Lumbar w/o Contrast) Back Pain w/ DISH Report CT THORACIC AND LUMBAR SPINE : CLINICAL INDICATION: Trauma with back pain TECHNIQUE: Transaxial sequence through the thoracic and separately through the lumbar spine with 1 mm reconstruction interval. Multiplanar reconstruction imaging was performed. COMPARISON: None FINDINGS: The vertebraeand joints: No wedge fracture or compression deformity [...] noncontrast study. Adrenals, pancreas and kidneys demonstrate noabnormality. There is dense atherosclerotic calcified abdominal aorta. [...] Radiology ACCESSION EXAM DATE/TIME PROCEDURE ORDERING PROVIDER [id number] 05/17/2021 00:31 EST CR Pelvis 1 or 2 Views [id number] MIGUEL ANGEL MCDONALD CPT code 81258 Reason For Exam (CR Pelvis 1 or [...] List Diagnosis Cervical compression fracture, initial encounter ([facility]) Fungal infection of the groin Insomnia PTSD (post-traumatic stress disorder) Fall Seizure ([facility]) Impaired gait Acute traumatic pain Memory loss Palliative care encounter Post-traumatic seizures ([facility]) Trauma Urinary retention Obesity (BMI 30-39.9) Closed nondisplaced lateral mass fracture of first cervical vertebra ([facility]) Fracture Polypharmacy Seizures ([facility]) At risk for confusion Drug-induced constipation Breakthrough seizure ([facility]) ASSESSMENT: 71 y/o M s/p mechanical fall at home. Found to have a C1 lateral mass fracture. PLAN: Neuro/Spine: - Ortho spine consulted - Remain in c-collar for 3 months, f/u in 10 days - Initial head CT read at [place] [place] 05/16 20:22 as normal - Pain: PO [...] zofran : - CrCl: 71 - Remove ortega 05/19 - Start flomax - Urinary retention; [...] outpatient, no acute intervention plan dc to [facility] today, Medically stable for discharge today. Associated attestation - Natalia Molina MD - 05/23/2021 2:53 PM EDT ~~~~~~~~~~~~~~~~~~~~~~~~~~~~~~~~~~~~~~~~~~~~~~~~~~~~~~~~~~~~~ ATTENDING ADDENDUM Active Diagnoses/Problems this Admission: Hospital [...] (HCC) 05/22/2021 Yes I personally supervised the OLEOMARGARINE MAKER/SRIRAM in the evaluation and development of a [...] MD Division of Trauma Department of Surgery [facility] Pager: [phone] ~~~~~~~~~~~~~~~~~~~~~~~~~~~~~~~~~~~~~~~~~~~~~~~~~~~~~~~~~~~~~ This note may have been dictated using [employer] Medical Practice Edition 2.6 and/or [employer] Voice Recognition Feature. The document was proofread; however, unrecognized voice recognition learning and development specialist errors may be present. * Katy Elder RD, LD - 05/22/2021 3:04 PM EDT Nutrition Assessment Type and Reason for Visit: Reassess Nutrition Assessment: Spoke w/pt. via phone from [facility] [address] office. Per pt.: pretty good appetite, eating > 75% of meals, declines supplements, denies GI complaints. Per chart: d/c pending, Labs: 3/13Cl 97, low, C02 35, elevated Malnutrition Assessment: Malnutrition Status: No malnutrition Estimated Daily Nutrient Needs: Energy (kcal): 9569-9472 kcals/day; Weight Used for Energy Requirements: [place] (75.4kgs) Protein (g): 90-106g protein/day; Weight Used for Protein Requirements: [place] (75.4kgs) Fluid (ml/day): per MD-; Weight Used [...] inpatient (will assign level 1 referring to public health dietitian to monitor) Goals: eating meals Nutrition Monitoring and Evaluation: Behavioral-Environmental Outcomes: None Identified Food/Nutrient Intake Outcomes: Food and Nutrient Intake Physical Signs/Symptoms Outcomes: Biochemical Data,Nutrition Focused Physical Findings,Skin,Weight Discharge Planning: Continue current diet,Assist with food insecurity Contact: [id number] * Marnie Kong, STATISTICAL DEVELOPER - 05/22/2021 2:10 PM EDT Physical Therapy Facility/Department: [facility] H5 MED SURG Daily Treatment Note NAME: Bear [...] supine x 10 reps each AM-PAC Score -[facility] Inpatient Mobility Raw Score : 8 (05/22/21 140) [facility] Inpatient T-Scale Score : 28.52 (05/22/211408) Mobility Inpatient CMS 0-100% Score: 86.62 (05/22/211408) Mobility Inpatient [facility] G-Code Modifier : CM (05/22/211408) Goals Short term goals Time Frame for [...] Minutes: 11 Minutes (tp) Marnie Kong PTA * Renetta Lawson, YAHIR - FRAMING MECHANIC - 05/22/2021 1:48 PM EDT Images from the original note were not included. [facility] Geriatric Medicine Inpatient Consult Service Admission Date: [...] of SW note from today- plan for [facility]- possible d/c today Acute traumatic pain - [...] include: Hearing loss, pain, medication withdrawal/ medication sideeffect, urinary retention - Delirium protocol - continue nightly scheduled melatonin - Avoid sedating/anticholinergic medications, encourage sleep hygiene, encourage family visits, optimize sensory input and access to assistive devices where indicated, encourage time up in chair as able and D/c Ortega, restraints, IV lines, as able Follow-up: will sign off, please call if questions Subjective Chief Complaint: fall Geriatrics consulted for Trauma due to fall HPI- The patient is known to me. 71 y.o. year-old male admitted to acute care from home for fall. Fell after tripping over his dog. Diagnosed with nondisplaced fracture of the left posterior neural arch of C1 and comminuted fractureof the left lateral mass. Interval History: Remains [...] Current Facility-Administered Medications: bacitracin-polymyxin b (POLYSPORIN) ophthalmic ointment,, Topical, BID zrxpbydsaq-rbrwotquzvypm-enkfqgfa (FIORICET, ESGIC) per tablet 1 tablet, 1 [...] 1.400 05/17/2021 Lab Results Component Value Date [id number] 674 05/17/2021 Lab Results Component Value Date VITD25 45 05/17/2021 Reviewed: active problem list, medication list, allergies, notes from last encounter, lab results * YAHIR Jones CNP - 05/22/2021 6:42 AM EDT Daily Trauma Progress Note NANDO 05/22/2021 6:42 [...] tablet 30 mg 30 mg Oral Daily YAHIR Solorio [employer] 30 mg at 05/21/21842 amLODIPine (NORVASC) tablet 5 mg 5 mg Oral Daily YAHIR Solorio [employer] 5 mg at 05/21/21842 polyethylene glycol (GLYCOLAX) packet 17 g 17 g Oral Daily YAHIR Solorio [employer] 17 g at 05/21/21842 senna (SENOKOT) tablet 8.6 mg 1 tablet Oral Nightly YAHIR Solorio [employer] 8.6 mg at 05/21/212128 tamsulosin (FLOMAX) capsule 0.4 mg 0.4 mg Oral Daily YAHIR Solorio [employer] 0.4 mg at 05/21/21842 oxyCODONE (ROXICODONE) immediate release tablet 10 mg 10 mg Oral Q4H PRN Bienvenido Mcleod MD 10 mg at05/22/2130 traZODone (DESYREL) tablet 100 mg 100 mg Oral Nightly Bienvenido Mcleod MD 100 mg at 05/21/212128 lidocaine 4 % external patch 1 patch 1 patch TransDERmal Daily Bienvenido Mcleod MD 1 patch at 05/21/21 0844 enoxaparin (LOVENOX) injection 30 mg 30 mg SubCUTAneous BID Bienvenido Mcleod MD 30 mg at 05/21/212128 clopidogrel (PLAVIX) tablet 75 mg 75 mg Oral Daily Bienvenido Mcleod MD 75 mg at 05/21/2143 labetalol (NORMODYNE;TRANDATE) injection 10 mg 10 mg IntraVENous Q4H PRN Bienvenido Mcleod MD 10 mg at05/20/212135 hydrALAZINE (APRESOLINE) injection 10 mg 10 mg [...] per day Bienvenido Mcleod MD 1,000 mg at05/22/21550 diazePAM (VALIUM) tablet 10 mg 10 mg Oral TID Bienvenido Mcleod MD 10 mg at 05/21/212127 sodium chloride flush 0.9 % injection 5-40 mL 5-40 mL IntraVENous 2 times per day Bienvenido Mcleod MD10 mL at 05/21/212131 sodium chloride flush 0.9 [...] clear. Eyes: Conjunctiva/sclera: Conjunctivae normal. Neck: Comments: Aitkin collar in place Cardiovascular: Rate and Rhythm: [...] Radiology ACCESSION EXAM DATE/TIME PROCEDURE ORDERING PROVIDER [id number] 05/17/2021 09:44 EST CR Spine Cervical 2 or 3SMD AMADOR BLAKE Views CPT code 18731 Reason For Exam (CR Spine Cervical 2 [...] MD NIELSON JEFFREY Transcribed Date and Time: 0 05/18/2021 5:25 XR SHOULDER LEFT 1 VW Result Date: 05/17/2021 Patient Name: BEAR SHINE [facility]#: [id number] Diagnostic Radiology ACCESSION EXAM DATE/TIME PROCEDURE ORDERING PROVIDER [id number] 05/17/2021 02:25 EST CR Shoulder 1 View Left MD NEGRON BLAKE CPT code 24490 Reason For Exam (CR Shoulder 1 View [...] definite fracture or dislocation. Report Dictated on Workst ation: [id number] --- Final --- Dictated: 05/17/2021 3:51 am Dictating Physician: MD NIELSON JEFFREY Signed Date and Time: 05/17/2021 3:53 am Signed by: MD NIELSON JEFFREY Transcribed Date and Time: 05/17/2021 3:51 CT HEAD WO CONTRAST Result Date: 05/17/2021 Patient Name: BEAR SHINE [facility]#: [id number] Computed Tomography ACCESSION EXAM DATE/TIME PROCEDURE ORDERING PROVIDER [id number] 05/17/2021 05:[address] Head or Brain w/o [id number] -PIA, MIGUEL ANGEL Contrast CPT code 15324 Reason For Exam (CT Head or Brain w/o Contrast) repeat CT head, fall on blood thinners, forehead abrasion, known C1 fx. No earlier than 04:[address] HEAD: CLINICAL INDICATION: Trauma with known C1 fracture with previous images from [facility] TECHNIQUE: Transaxial CT sequence performed through the [...] Dictated on --- Final --- Dictated: 05/17/2021 6:17am Dictating Physician: MD NIELSON JEFFREY Signed Date and Time: 05/17/2021 6:21 am Signed by: MD NIELSON JEFFREY Transcribed Date and Time: 05/17/2021 6:18 CTA NECK W WO CONTRAST Result Date: 05/17/2021 Patient Name: BEAR SHINE [facility]#: [id number] Computed Tomography ACCESSION EXAM DATE/TIME PROCEDURE ORDERING PROVIDER [id number] 05/17/2021 05:31 EST CTA Neck w/ + w/o MD NEGRON BLAKE Contrast CPT code 67915 Q9967 Reason For Exam (CTA Neck w/ + w/o Contrast) C1 Fracture Report CT ANGIOGRAPHY NECK: CLINICAL INDICATION: Trauma with known C1 fracture with previous images from [facility] TECHNIQUE: Multidetector spiral transaxial sequence was performed fromthe upper mediastinum through the skull base during dynamic intravenous infusion of 75 mL of nonionic contrast media, injected at a high flow rate following a university president study. Images were reconstructed with soft tissue [...] lateral mass of C1 is noted as identifiedon CT head and prior CT cervical spine. [...] Physician: MD NIELSON JEFFREY Signed Date and Time:05/17/2021 6:35 am Signed by: MD NIELSON JEFFREY Transcribed Date and Time: 05/17/2021 6:22 CT THORACIC SPINE WO CONTRAST Result Date: 05/17/2021 Patient Name: BEAR SHINE [facility]#: [id number] Computed Tomography ACCESSION EXAM DATE/TIME PROCEDURE ORDERING PROVIDER [id number] 05/17/2021 05:[address] Spine Thoracic w/o MD JAMIL, NERISSA Contrast CPT code 41201 Reason For Exam (CT Spine Thoracic w/o [...] aspect of these vertebrae as well. No otherlytic bone lesion is identified. The facet joints demonstrate minor hypertrophic change at L4-L5 and L5-S1. Intervertebral disc spaces and spinal canal: Generalized disc space narrowing is noted throu ghout the thoracic levels. Lumbar disc levels demonstrate minor narrowing at L4- L5. There is no widening of the disc spaces. There is minor bony foraminal spinal stenosis at L4-L5 without other bony spinal stenosis. Soft tissues: Visualized portions of the lungs demonstrate dependent atelectasis. There is no consolidation. Cardiac chambers are relatively large. There is coronary artery calcification. No mediastinal or hilar mass is noted on this noncontrast study. Adrenals, pancreas and kidneysdemonstrate no abnormality. There is dense atherosclerotic calcified abdominal aorta. No enlarged retroperitoneal lymph nodes are noted. IMPRESSION: 1. No thoracic or lumbar fracture identified 2. Bull wing ossification about the anterior aspect of the vertebrae from T3-L2 corresponding to diffuse idiopathic skeletal hyperostosis. 3. Minor bony spinal stenosis at L4-L5 Computed Tomography Report Report Dictated on --- Final --- Dictated: 05/17/2021 6:36 am Dictating Physician: MD NIELSON JEFFREY Signed Date and Time: 05/17/2021 6:42 am Signed by: MD NIELSON JEFFREYTranscribed Date and Time: 05/17/2021 6:36 CT LUMBAR SPINE WO CONTRAST Result Date: 05/17/2021 Patient Name: BEAR SHINE [facility]#: [id number] Computed Tomography ACCESSION EXAM DATE/TIME PROCEDURE ORDERING PROVIDER [id number] 05/17/2021 05:[address] Spine Lumbar w/o MD JAMIL, NERISSA Contrast CPT code 88166 Reason For Exam (CT Spine Lumbar w/o Contrast) Back Pain w/ DISH Report CT THORACIC AND LUMBAR SPINE : CLINICAL INDICATION: Trauma with back pain TECHNIQUE: Transaxial sequence through the thoracic and separately through the lumbar spine with 1 mm reconstruction interval. Multiplanar reconstruction imaging was performed. COMPARISON: None FINDINGS: The vertebraeand joints: No wedge fracture or compression deformity [...] noncontrast study. Adrenals, pancreas and kidneys demonstrate noabnormality. There is dense atherosclerotic calcified abdominal aorta. [...] Result Date: 05/17/2021 Patient Name: BEAR SHINE [facility]#: [id number] Diagnostic Radiology ACCESSION EXAM DATE/TIME PROCEDURE ORDERING PROVIDER [id number] 05/17/2021 00:31 EST CR Pelvis 1 or 2 Views [id number] -MIGUEL ANGEL RAMIREZ CPT code 98273 Reason For Exam (CR Pelvis 1 or [...] List Diagnosis Cervical compression fracture, initial encounter ([facility]) Fungal infection of the groin Insomnia PTSD (post-traumatic stress disorder) Fall Seizure ([facility]) Impaired gait Acute traumatic pain Memory loss Palliative care encounter Post-traumatic seizures ([facility]) Trauma Urinary retention Obesity (BMI 30-39.9) [...] days - Initial head CT read at [place] [place] 05/16 20:22 as normal - Pain: PO [...] zofran : - CrCl: 71 - Remove ortega 05/19 - Start flomax - Urinary retention; [...] Molina MD - 05/22/2021 2:01 PM EDT ~~~~~~~~~~~~~~~~~~~~~~~~~~~~~~~~~~~~~~~~~~~~~~~~~~~~~~~~~~~~~ ATTENDING ADDENDUM Active Diagnoses/Problems this Admission: Hospital [...] constipation 05/21/2021 Yes I personally supervised the OLEOMARGARINE MAKER/PADante in the evaluation and development of a [...] MD Division of Trauma Department of Surgery [facility] Pager: [phone] ~~~~~~~~~~~~~~~~~~~~~~~~~~~~~~~~~~~~~~~~~~~~~~~~~~~~~~~~~~~~~ This note may have been dictated using [employer] Medical Practice Edition 2.6 and/or [employer] Voice Recognition Feature. The document was proofread; however, unrecognized voice recognition learning and development specialist errors may be present. * Renetta Lawson, YAHIR - FRAMING MECHANIC - 05/21/2021 2:47 PM EDT Images from the original note were not included. [facility] Geriatric Medicine Inpatient Consult Service Admission Date: [...] of SW note from today- plan for [facility] Acute traumatic pain - continue scheduled Tylenol 1000 mg q8h, oxycodone 10 mg q6h PRN (multiple PRN doses used today) - Takes Oxycodone 10 mg 4 times daily at home according to [facility] report - Monitor for constipation- at increase risk secondary to opioid use and decreased mobility- per review of chart- small hard BM documented yesterday- continue scheduled bowel regimen Polypharmacy - Follow up [...] include: Hearing loss, pain, medication withdrawal/ medication sideeffect, urinary retention - Delirium protocol - continue nightly scheduled melatonin - Avoid sedating/anticholinergic medications, encourage sleep hygiene, encourage family visits, optimize sensory input and access to assistive devices where indicated, encourage time up in chair as able and D/c Ortega, restraints, IV lines, as able Follow-up: 1-2 [...] posterior neural arch of C1 and comminuted fractureof the left lateral mass. Interval History: Remains [...] 1.400 05/17/2021 Lab Results Component Value Date [id number] 674 05/17/2021 Lab Results Component Value Date VITD25 45 05/17/2021 Reviewed: active problem list, medication list, allergies, notes from last encounter, lab results * Marnie Kong, STATISTICAL DEVELOPER - 05/21/2021 10:09 AM EDT Physical Therapy Attempted PT, RN at bedside and said now is not a good time secondary to pain. Will re-attempt as schedule permits. * YAHIR Jones CNP - 05/21/2021 10:08 AM EDT Nursing notified me of a witnessed seizure. Patient was reported to have had tremors to his extremities and was initially nonverbal following the event. He was reported to then be confused and statedhe was in a [employer] chopper in [place]. He has a known history of seizures [...] consult was placed. Will continue to monitor. * BYRON Freeman - 05/21/2021 10:03 AM EDT Occupational Therapy Facility/Department: [facility] H5 MED SURG Daily Treatment Note Pt. Appears agitated and nursing asking therapies to come back later. OT will re-attempt to see pt.As schedule permits. NAME: Bear Shine : 1950 Date of Service: 05/21/2021 BYRON Quezada * Genesis Loya RN - 05/21/2021 10:01 AM EDT This RN was called to room by helping hands RN after answering call light. Pt stated that he felt as if he was going to have a seizure. This RN, secondary RN and nursing home assistant administrator witnessed episode. Provider was notified. Seizure precautions initiated. Medication administered per orders. * Ingemarifer Rain APRN - FRAMING MECHANIC - 05/21/2021 6:17 AM EDT Daily Trauma Progress Note NANDO 05/21/2021 6:17 [...] tablet 30 mg 30 mg Oral Daily Pk Pruitt APRN - [employer]TRY GOODS MAKER 30 mg at 05/20/21 0833 amLODIPine (NORVASC) tablet 5 mg 5 mg Oral Daily Pk Pruitt APRN - [employer] MAKER 5 mg at 05/20/21 0835 polyethylene glycol (GLYCOLAX) packet 17 g 17 g Oral Daily Pk Pruitt APRN - [employer] MAKER 17 g at 05/20/21 0831 senna (SENOKOT) tablet 8.6 mg 1 tablet Oral Nightly Pk Pruitt APRN - [employer] MAKER 8.6 mg at 05/20/21 2135 tamsulosin (FLOMAX) capsule 0.4 mg 0.4 mg Oral Daily Pk Pruitt APRN - [employer] MAKER 0.4 mg at 05/20/21 0832 oxyCODONE (ROXICODONE) immediate release tablet 10 mg 10 mg Oral Q4H PRN Bienvenido Mcleod MD 10 mg at05/21/21 0533 traZODone (DESYREL) tablet 100 mg 100 mg Oral Nightly Bienvenido Mcleod MD 100 mg at 05/20/212134 cyclobenzaprine (FLEXERIL) tablet 5 mg 5 mg [...] Daily Bienvenido Mcleod MD 75 mg at 05/20/21 0833 labetalol (NORMODYNE;TRANDATE) injection 10 mg 10 mg IntraVENous Q4H PRN Bienvenido Mcleod MD 10 mg at05/20/212135 hydrALAZINE (APRESOLINE) injection 10 mg 10 mg [...] per day Bienvenido Mcleod MD 1,000 mg at05/21/21 0533 diazePAM (VALIUM) tablet 10 mg 10 mg Oral TID Bienvenido Mcleod MD 10 mg at 05/20/212134 sodium chloride flush 0.9 % injection 5-40 mL 5-40 mL IntraVENous 2 times per day Bienvenido Mcleod MD10 mL at 05/20/212134 sodium chloride flush 0.9 [...] to be discharged to a facility for rehab.He is voiding and denies any additional urinary [...] clear. Eyes: Conjunctiva/sclera: Conjunctivae normal. Neck: Comments: Aitkin collar in place Cardiovascular: Rate and Rhythm: [...] Radiology ACCESSION EXAM DATE/TIME PROCEDURE ORDERING PROVIDER [id number] 05/17/2021 09:44 EST CR Spine Cervical 2 or 3SMD AMADOR BLAKE Views CPT code 27415 Reason For Exam (CR Spine Cervical 2 [...] MD NIELSON JEFFREY Transcribed Date and Time: 0 05/18/2021 5:25 XR SHOULDER LEFT 1 VW Result Date: 05/17/2021 Patient Name: BEAR SHINE Diagnostic Radiology ACCESSION EXAM DATE/TIME PROCEDURE ORDERING PROVIDER [id number] 05/17/2021 02:25 EST CR Shoulder 1 View Left MD NEGRON BLAKE CPT code 66900 Reason For Exam (CR Shoulder 1 View [...] definite fracture or dislocation. Report Dictated on Workst ation: [id number] --- Final --- Dictated: 05/17/2021 3:51 am Dictating Physician: MD NIELSON JEFFREY Signed Date and Time: 05/17/2021 3:53 am Signed by: MD NIELSON JEFFREY Transcribed Date and Time: 05/17/2021 3:51 CT HEAD WO CONTRAST Result Date: 05/17/2021 Patient Name: BEAR SHINE Computed Tomography ACCESSION EXAM DATE/TIME PROCEDURE ORDERING PROVIDER [id number] 05/17/2021 05:[address] Head or Brain w/o [id number] -PIA MIGUEL ANGEL Contrast CPT code 49235 Reason For Exam (CT Head or Brain w/o Contrast) repeat CT head, fall on blood thinners, forehead abrasion, known C1 fx. No earlier than 04:[address] HEAD: CLINICAL INDICATION: Trauma with known C1 fracture with previous images from [facility] TECHNIQUE: Transaxial CT sequence performed through the [...] Dictated on --- Final --- Dictated: 05/17/2021 6:17am Dictating Physician: MD NIELSON JEFFREY Signed Date and Time: 05/17/2021 6:21 am Signed by: MD NIELSON JEFFREY Transcribed Date and Time: 05/17/2021 6:18 CTA NECK W WO CONTRAST Result Date: 05/17/2021 Patient Name: BEAR SHINE [facility]#: [id number] Computed Tomography ACCESSION EXAM DATE/TIME PROCEDURE ORDERING PROVIDER [id number] 05/17/2021 05:31 EST CTA Neck w/ + w/o MD JAMIL, NERISSA Contrast CPT code 48580 Q9967 Reason For Exam (CTA Neck w/ + w/o Contrast) C1 Fracture Report CT ANGIOGRAPHY NECK: CLINICAL INDICATION: Trauma with known C1 fracture with previous images from [facility] TECHNIQUE: Multidetector spiral transaxial sequence was performed fromthe upper mediastinum through the skull base during dynamic intravenous infusion of 75 mL of nonionic contrast media, injected at a high flow rate following a university president study. Images were reconstructed with soft tissue [...] lateral mass of C1 is noted as identifiedon CT head and prior CT cervical spine. [...] Physician: MD NIELSON JEFFREY Signed Date and Time:05/17/2021 6:35 am Signed by: MD NIELSON JEFFREY Transcribed Date and Time: 05/17/2021 6:22 CT THORACIC SPINE WO CONTRAST Result Date: 05/17/2021 Patient Name: BEAR SHINE Computed Tomography ACCESSION EXAM DATE/TIME PROCEDURE ORDERING PROVIDER [id number] 05/17/2021 05:[address] Spine Thoracic w/o MD JAMIL, NERISSA Contrast CPT code 30524 Reason For Exam (CT Spine Thoracic w/o [...] aspect of these vertebrae as well. No otherlytic bone lesion is identified. The facet joints demonstrate minor hypertrophic change at L4-L5 and L5-S1. Intervertebral disc spaces and spinal canal: Generalized disc space narrowing is noted throu ghout the thoracic levels. Lumbar disc levels demonstrate minor narrowing at L4- L5. There is no widening of the disc spaces. There is minor bony foraminal spinal stenosis at L4-L5 without other bony spinal stenosis. Soft tissues: Visualized portions of the lungs demonstrate dependent atelectasis. There is no consolidation. Cardiac chambers are relatively large. There is coronary artery calcification. No mediastinal or hilar mass is noted on this noncontrast study. Adrenals, pancreas and kidneysdemonstrate no abnormality. There is dense atherosclerotic calcified abdominal aorta. No enlarged retroperitoneal lymph nodes are noted. IMPRESSION: 1. No thoracic or lumbar fracture identified 2. Bull wing ossification about the anterior aspect of the vertebrae from T3-L2 corresponding to diffuse idiopathic skeletal hyperostosis. 3. Minor bony spinal stenosis at L4-L5 Computed Tomography Report Report Dictated on --- Final --- Dictated: 05/17/2021 6:36 am Dictating Physician: MD NIELSON JEFFREY Signed Date and Time: 05/17/2021 6:42 am Signed by: MD NIELSON JEFFREYTranscribed Date and Time: 05/17/2021 6:36 CT LUMBAR SPINE WO CONTRAST Result Date: 05/17/2021 Patient Name: BEAR SHINE Computed Tomography ACCESSION EXAM DATE/TIME PROCEDURE ORDERING PROVIDER [id number] 05/17/2021 05:[address] Spine Lumbar w/o MD JAMIL, NERISSA Contrast CPT code 07185 Reason For Exam (CT Spine Lumbar w/o Contrast) Back Pain w/ DISH Report CT THORACIC AND LUMBAR SPINE : CLINICAL INDICATION: Trauma with back pain TECHNIQUE: Transaxial sequence through the thoracic and separately through the lumbar spine with 1 mm reconstruction interval. Multiplanar reconstruction imaging was performed. COMPARISON: None FINDINGS: The vertebraeand joints: No wedge fracture or compression deformity [...] noncontrast study. Adrenals, pancreas and kidneys demonstrate noabnormality. There is dense atherosclerotic calcified abdominal aorta. [...] Result Date: 05/17/2021 Patient Name: BEAR SHINE [facility]#: [id number] Diagnostic Radiology ACCESSION EXAM DATE/TIME PROCEDURE ORDERING PROVIDER [id number] 05/17/2021 00:31 EST CR Pelvis 1 or 2 Views [id number] -MIGUEL ANGEL RAMIREZ CPT code 18150 Reason For Exam (CR Pelvis 1 or [...] groin Insomnia PTSD (post-traumatic stress disorder) Seizure (HCC) Impaired gait Acute pain due to trauma Memory loss Palliative care encounter Post-traumatic seizures (HCC) Trauma Urinary retention Obesity (BMI 30-39.9) ASSESSMENT: 71 y/o M s/p mechanical fall at home. Found to have a C1 lateral mass fracture. PLAN: Neuro/Spine: - Ortho spine consulted - Remain in c-collar for 3 months, f/u in 10 days - Initial head CT read at [place] 05/16 20:22 as normal - Pain: PO [...] zofran : - CrCl: 71 - Remove ortega 05/19 - Start flomax - Urinary retention; [...] Molina MD - 05/21/2021 2:38 PM EDT ~~~~~~~~~~~~~~~~~~~~~~~~~~~~~~~~~~~~~~~~~~~~~~~~~~~~~~~~~~~~~ ATTENDING ADDENDUM Active Diagnoses/Problems this Admission: Hospital [...] constipation 05/21/2021 Yes I personally supervised the OLEOMARGARINE MAKER/SRIRAM in the evaluation and development of a [...] MD Division of Trauma Department of Surgery [facility] Pager: [phone] ~~~~~~~~~~~~~~~~~~~~~~~~~~~~~~~~~~~~~~~~~~~~~~~~~~~~~~~~~~~~~ This note may have been dictated using [employer] Medical Practice Edition 2.6 and/or [employer] Voice Recognition Feature. The document was proofread; however, unrecognized voice recognition learning and development specialist errors may be present. * Rosendo Aguilar MD - 05/20/2021 9:27 AM EDT Images from the original note were not included. [facility] Geriatric Medicine Inpatient Consult Service Admission Date: [...] to confirm outpatient medications - Patient on barbiturate/benzodiazepine/narcotics which all have potential to contribute to falls, however appears to be on aleida/benzo chronically, ok to continue these medications to prevent risk ofwithdrawal. 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 71 y.o. year-old male admitted to acute care from home for fall. Fell after tripping over his dog. Diagnosed with nondisplaced fracture of the left posterior neural arch of C1 and comminuted fractureof the left lateral mass. Interval History: Transferred to general medical/surgical floor yesterday morning from ICU. Required straight cath overnight for urinary retention. Patient seen this morning lying in bed with C-collar in place. No complaints currently. Keeps eyes closed for the majority of exam due to headache, opens them when asked. Discussed seizure disorder further, states that his last seizure was in hospitalized in [place] for shoulder dislocation. Confirms that he is [...] 16 Ht 5' 10 (1.778 m) Wt 214lb 1.1 oz (97.1 kg) SpO2 97% BMI [...] 1.400 05/17/2021 Lab Results Component Value Date [id number] 05/17/2021 Lab Results Component Value Date [...] to a TBI in [place] since the 80s. He has been on phenobarbital since then. Pharmacy working to clarify medication list as the medication list that his home health agency has is outdated by several years although they state that they do not manage his medications. He reports his pain as 10/10 in his neck today. Notes that shoulderpain has improved. Fall/Fracture-Plan for discharge to skilled rehab based on therapy recs. Continue to assess pain onthis current regimen. Polypharmacy -Phenobarbital-Agree with monitoring levels. [...] agency. 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 Please see resident note for further recommendations. During this encounter, I spent over 51% of the total encounter time of 50 minutes counseling or coordinating care and provided discussion regarding work- up, test results, treatment options and associated risks and benefits for the problems detailed above, prognosis, expected disease course, and rehabilitation care needs as indicated. * BYRON Freeman - 05/20/2021 9:15 AM EDT Occupational Therapy Facility/Department: [facility] Daily Treatment Note Pt. Is currently OOR. OT will re-attempt to see pt. As schedule permits. NAME: Bear Shine : 1950 Date of Service: 05/20/2021 BYRON Quezada * Luz Maria Jaramillo, PT - 05/20/2021 8:37 AM EDT Physical Therapy Facility/Department: [facility] Daily Treatment Note NAME: Bear [...] transfer to the chair G-Code OutComes Score AM-PAC Score AM-[facility] Inpatient Mobility Raw Score : 7 (05/20/21824) AM-PAC Inpatient T-Scale Score : 26.42 (05/20/21824) Mobility [...] Group Co-treatment Time In 08 Time Out 08 Minutes 19 Timed Code Treatment Minutes: 19 Minutes Luz Maria Jaramillo PT * YAHIR Jones CNP - 05/20/2021 6:04 AM EDT Daily Trauma Progress Note NANDO 05/20/2021 6:04 [...] rehab facility, wants to go home with [facility] -Urinary retention, straight cath X1 overnight last night Consults: IP CONSULT TO ORTHOPEDIC SURGERY IP CONSULT TO GERIATRICS IP CONSULT TO PALLIATIVE CARE MEDICATIONS: Current Facility-Administered Medications Medication Dose Route Frequency Provider Last Rate Last Admin isosorbide dinitrate (ISORDIL) tablet 30 mg 30 mg Oral Daily Pk Pruitt OLEOMARGARINE MAKER - PANTRY GOODS MAKER 30 mg at 05/19/21 0938 amLODIPine (NORVASC) tablet 5 mg 5 mg Oral Daily Pk Pruitt OLEOMARGARINE MAKER - PANTRY GOODS MAKER polyethylene glycol (GLYCOLAX) packet 17 g 17 g Oral Daily Pk Pruitt APRN - PANTRY GOODS MAKER 17 g at 05/19/21 1311 senna (SENOKOT) tablet 8.6 mg 1 tablet Oral Nightly Pk Pruitt APRN - PANTRY GOODS MAKER 8.6 mg at 05/19/212115 tamsulosin (FLOMAX) capsule 0.4 mg 0.4 mg Oral Daily Pk Pruitt APRN - PANTRY GOODS MAKER 0.4 mg at 05/19/21 1314 oxyCODONE (ROXICODONE) immediate release tablet 10 mg 10 mg Oral Q4H PRN Bienvenido Mcleod MD 10 mg at05/20/21 0600 traZODone (DESYREL) tablet 100 mg 100 mg Oral Nightly Beinvenido Mcleod MD 100 mg at 05/19/212115 cyclobenzaprine [...] Daily Bienvenido Mcleod MD 75 mg at 05/19/21 0938 labetalol (NORMODYNE;TRANDATE) injection 10 mg 10 mg IntraVENous Q4H PRN Bienvenido Mcleod MD 10 mg at05/19/21 0536 hydrALAZINE (APRESOLINE) injection 10 mg 10 [...] per day Bienvenido Mcleod MD 1,000 mg at05/20/21 0600 diazePAM (VALIUM) tablet 10 mg 10 mg Oral TID Bienvenido Mcleod MD 10 mg at 05/19/212115 sodium chloride flush 0.9 % injection 5-40 mL 5-40 mL IntraVENous 2 times per day Bienvenido Mcleod MD10 mL at 05/19/212115 sodium chloride flush 0.9 [...] [facility] Review of Systems Constitutional: Positive for activity [...] Date 05/20/21 0000 - 05/20/21 2359 Shift [id number] 7388-7433 7062-3231 24 Hour Total INTAKE Shift Total(mL/kg) OUTPUT [...] clear. Eyes: Conjunctiva/sclera: Conjunctivae normal. Neck: Comments: [place] collar in place Cardiovascular: Rate and Rhythm: [...] Radiology ACCESSION EXAM DATE/TIME PROCEDURE ORDERING PROVIDER [id number] 05/17/2021 09:44 EST CR Spine Cervical 2 or 3SMD MARJORIE, NERISSA Views CPT code 20939 Reason For Exam (CR Spine Cervical 2 [...] MD NIELSON JEFFREY Transcribed Date and Time: 0 05/18/2021 5:25 XR SHOULDER LEFT 1 VW Result Date: 05/17/2021 Patient Name: BEAR SHINE Diagnostic Radiology ACCESSION EXAM DATE/TIME PROCEDURE ORDERING PROVIDER [id number] 05/17/2021 02:25 EST CR Shoulder 1 View Left MD NEGRON BLAKE CPT code 24678 Reason For Exam (CR Shoulder 1 View [...] definite fracture or dislocation. Report Dictated on Workst ation: [id number] --- Final --- Dictated: 05/17/2021 3:51 am Dictating Physician: MD INELSON JEFFREY Signed Date and Time: 05/17/2021 3:53 am Signed by: MD NIELSON JEFFREY Transcribed Date and Time: 05/17/2021 3:51 CT HEAD WO CONTRAST Result Date: 05/17/2021 Patient Name: BEAR SHINE Computed Tomography ACCESSION EXAM DATE/TIME PROCEDURE ORDERING PROVIDER [id number] 05/17/2021 05:[address] Head or Brain w/o [id number] -MIGUEL ANGEL RAMIREZ Contrast CPT code 23823 Reason For Exam (CT Head or Brain w/o Contrast) repeat CT head, fall on blood thinners, forehead abrasion, known C1 fx. No earlier than 04:[address] HEAD: CLINICAL INDICATION: Trauma with known C1 fracture with previous images from [facility] TECHNIQUE: Transaxial CT sequence performed through the [...] Dictated on --- Final --- Dictated: 05/17/2021 6:17am Dictating Physician: MD NIELSON JEFFREY Signed Date and Time: 05/17/2021 6:21 am Signed by: MD NIELSON JEFFREY Transcribed Date and Time: 05/17/2021 6:18 CTA NECK W WO CONTRAST Result Date: 05/17/2021 Patient Name: BEAR SHINE Computed Tomography ACCESSION EXAM DATE/TIME PROCEDURE ORDERING PROVIDER [id number] 05/17/2021 05:31 EST CTA Neck w/ + w/o MD JAMIL, NERISSA Contrast CPT code 70227 Q9967 Reason For Exam (CTA Neck w/ + w/o Contrast) C1 Fracture Report CT ANGIOGRAPHY NECK: CLINICAL INDICATION: Trauma with known C1 fracture with previous images from [facility] TECHNIQUE: Multidetector spiral transaxial sequence was performed fromthe upper mediastinum through the skull base during dynamic intravenous infusion of 75 mL of nonionic contrast media, injected at a high flow rate following a university president study. Images were reconstructed with soft tissue [...] lateral mass of C1 is noted as identifiedon CT head and prior CT cervical spine. [...] Physician: MD NIELSON JEFFREY Signed Date and Time:05/17/2021 6:35 am Signed by: MD NIELSON JEFFREY Transcribed Date and Time: 05/17/2021 6:22 CT THORACIC SPINE WO CONTRAST Result Date: 05/17/2021 Patient Name: BEAR SHINE [facility]#: [id number] Computed Tomography ACCESSION EXAM DATE/TIME PROCEDURE ORDERING PROVIDER [id number] 05/17/2021 05:[address] Spine Thoracic w/o MD JAMIL, NERISSA Contrast CPT code 07664 Reason For Exam (CT Spine Thoracic w/o [...] aspect of these vertebrae as well. No otherlytic bone lesion is identified. The facet joints demonstrate minor hypertrophic change at L4-L5 and L5-S1. Intervertebral disc spaces and spinal canal: Generalized disc space narrowing is noted throu ghout the thoracic levels. Lumbar disc levels demonstrate minor narrowing at L4- L5. There is no widening of the disc spaces. There is minor bony foraminal spinal stenosis at L4-L5 without other bony spinal stenosis. Soft tissues: Visualized portions of the lungs demonstrate dependent atelectasis. There is no consolidation. Cardiac chambers are relatively large. There is coronary artery calcification. No mediastinal or hilar mass is noted on this noncontrast study. Adrenals, pancreas and kidneysdemonstrate no abnormality. There is dense atherosclerotic calcified abdominal aorta. No enlarged retroperitoneal lymph nodes are noted. IMPRESSION: 1. No thoracic or lumbar fracture identified 2. Bull wing ossification about the anterior aspect of the vertebrae from T3-L2 corresponding to diffuse idiopathic skeletal hyperostosis. 3. Minor bony spinal stenosis at L4-L5 Computed Tomography Report Report Dictated on --- Final --- Dictated: 05/17/2021 6:36 am Dictating Physician: MD NIELSON JEFFREY Signed Date and Time: 05/17/2021 6:42 am Signed by: MD NIELSON JEFFREYTranscribed Date and Time: 05/17/2021 6:36 CT LUMBAR SPINE WO CONTRAST Result Date: 05/17/2021 Patient Name: BEAR SHINE Computed Tomography ACCESSION EXAM DATE/TIME PROCEDURE ORDERING PROVIDER [id number] 05/17/2021 05:[address] Spine Lumbar w/o MD NEGRON BLAKE Contrast CPT code 23167 Reason For Exam (CT Spine Lumbar w/o Contrast) Back Pain w/ DISH Report CT THORACIC AND LUMBAR SPINE : CLINICAL INDICATION: Trauma with back pain TECHNIQUE: Transaxial sequence through the thoracic and separately through the lumbar spine with 1 mm reconstruction interval. Multiplanar reconstruction imaging was performed. COMPARISON: None FINDINGS: The vertebraeand joints: No wedge fracture or compression deformity [...] noncontrast study. Adrenals, pancreas and kidneys demonstrate noabnormality. There is dense atherosclerotic calcified abdominal aorta. [...] Radiology ACCESSION EXAM DATE/TIME PROCEDURE ORDERING PROVIDER [id number] 05/17/2021 00:31 EST CR Pelvis 1 or 2 Views [id number] -MIGUEL ANGEL RAMIREZ CPT code 31673 Reason For Exam (CR Pelvis 1 or [...] List Diagnosis Cervical compression fracture, initial encounter ([facility]) Fungal infection of the groin Insomnia PTSD (post-traumatic stress disorder) Seizure ([facility]) Impaired gait Acute pain due to trauma Memory loss Palliative care encounter Post-traumatic seizures ([facility]) Trauma Urinary retention ASSESSMENT: 71 y/o M s/p mechanical fall at home. Found to have a C1 lateral mass fracture. PLAN: Neuro/Spine: - Ortho spine consulted - Remain in c-collar for 3 months, f/u in 10 days - Initial head CT read at [place] 05/16 20:22 as normal - Pain: PO [...] 71 - daily BMP: DC - Remove ortega 05/19 - Start flomax - Urinary retention; [...] however patient wants to go home with [facility] services through the [facility]. Pain control, monitor urine output. Straight cath/bladder scan prn. Cervical collar at all times until cleared by Ortho. Medically stable for discharge. Associated attestation - Natalia Molina MD - 05/21/2021 6:40 AM EDT ~~~~~~~~~~~~~~~~~~~~~~~~~~~~~~~~~~~~~~~~~~~~~~~~~~~~~~~~~~~~~ ATTENDING ADDENDUM Active Diagnoses/Problems this Admission: Hospital Problems Last Modified POA Trauma 05/16/2021 Yes Urinary retention 05/17/2021 Yes Obesity (BMI 30-39.9) 05/20/2021 Yes I personally supervised the YAHIR/SRIRAM in the evaluation and development of a [...] as stated in HPI. Per Inge Rain OLEOMARGARINE MAKER note C1 fx s/p mech fall - ortho spine --> c collar x 3 months - multimodal pain control Urinary retention - straight cath x 1 - flomax Restart home meds On home O2 DVT ppx OOB Dispo pending Natalia Molina MD Division of Trauma Department of Surgery [facility] Pager: [phone] ~~~~~~~~~~~~~~~~~~~~~~~~~~~~~~~~~~~~~~~~~~~~~~~~~~~~~~~~~~~~~ This note may have been dictated using [employer] Medical Practice Edition 2.6 and/or [employer] Voice Recognition Feature. The document was proofread; however, unrecognized voice recognition learning and development specialist errors may be present. * Leidy Leary RN - 05/19/2021 5:56 PM EDT Pt ortega catheter removed at 12pm. Patient not voiding. Pt bladder scanned for 290ml. Dr Malgorzata baltazar * Luz Maria Head PTA - 05/19/2021 11:12 AM EDT Physical Therapy Chart reviewed this date. RN cleared for therapy. PT attempted. Patient supine in bed with HOB slightly elevated, bed alarm and c-collar donned. Pt states he has been getting up just fine on his own and does not need physical therapy. STATISTICAL DEVELOPER educated pt on benefits of therapy and provided max encouragement and numerous options for therapy particpation. Pt continued to decline therapy services this date. PT will continue to follow. Will re-attempt another date/time as schedule allows. Luz Maria Head PTA * Magaly Manley MD - 05/19/2021 6:30 AM EDT Daily Trauma Progress Note NANDO 05/19/2021 6:30 [...] Q4H PRN Bienvenido Mcleod MD 10 mg at05/19/21 0540 traZODone (DESYREL) tablet 100 mg 100 [...] Q4H PRN Bienvenido Mcleod MD 10 mg at05/19/21 0536 hydrALAZINE (APRESOLINE) injection 10 mg 10 [...] per day Bienvenido Mcleod MD 1,000 mg at05/19/21 0540 diazePAM (VALIUM) tablet 10 mg 10 mg Oral TID Bienvenido Mcleod MD 10 mg at 05/18/212031 sodium chloride flush 0.9 % injection 5-40 mL 5-40 mL IntraVENous 2 times per day Bienvenido Mcleod MD10 mL at 05/18/212033 sodium chloride flush 0.9 [...] go to rehab, has help from his brotherat home and receives therapy in house twice weekly through the [facility]. Review of Systems Constitutional: Positive for activity [...] Radiology ACCESSION EXAM DATE/TIME PROCEDURE ORDERING PROVIDER [id number] 05/17/2021 09:44 EST CR Spine Cervical 2 or 3SMD AMADOR BLAKE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 oral is ineffective or cannot take oral. Do Not give oral and IV within 1 hour of each other unless specifically ordered. 2127 (Given - Provider: Yareli Diego RN - Comment: PO Oxy given) HYDROmorphone (DILAUDID) injection 0.5 mg (COMPLETED) 0.5 mg, SubCUTAneous, ONCE, On Thu05/22/21 at 0745, For 1 dose, If oral and IV narcotics ordered, use oral first and only use IV if oral is ineffective or cannot take oral. Do Not give oral and IV within 1 hour of each other unless specifically ordered. 0838 (Given - Provider: Daisy Cooper RN) isosorbide dinitrate (ISORDIL) tablet 30 mg 30 mg, Oral, DAILY, First dose (after last modification) on Thu05/19/21 at 0900 0843 (Given - Provider: Genesis Loya RN) 0833 (Given - Provider: Daisy Cooper RN) 0831 (Given - Provider: Leidy Leary RN) lidocaine 4 % external patch 1 patch 1 patch, TransDERmal, Administer over 12 Hours, DAILY, First dose on Thu05/18/21 at 1200, Apply patch to areas of pain. Patch may remain in place for up to 12 hours in any 24 hour period. 0844 (Patch Applied - Provider: Genesis Loya RN)2337 (Patch Removed - Provider: Yareli Diego RN) 0839 (Patch Applied - Provider: Daisy Cooper RN)2016 (Patch Removed - Provider: Yareli Diego RN) 0830 (Patch Applied - Provider: Leidy Leary, SAVAGE)2030 (Due: Patch Removed - Provider: Leidy Leary, SAVAGE) melatonin tablet 3 mg 3 mg, Oral, NIGHTLY, First dose on Thu05/17/21 at 2100 212 (Given - Provider: Yareli Diego RN) 2019 (Given - Provider: Yareli Diego, SAVAGE) 2100 (Due) miconazole (MICOTIN) 2 % powder Topical, 2 TIMES DAILY, First dose on Thu05/17/21 at 0100, Apply to affected areas., STAT 0850 (Given - Provider: Genesis Loya RN)2134 (Given - Provider: Yareli Diego, SAVAGE) 0842 (Given - Provider: Daisy Cooper, SAVAGE)2019 (Given - Provider: Yareli Diego RN - Comment: groin) 0900 (Given - Provider: Leidy Leary RN)2100 (Due) nicotine (NICODERM CQ) 21 MG/24HR 1 patch 1 patch, TransDERmal, Administer over 24 Hours, DAILY, First dose on Thu05/22/21 at 1430, Apply new patch to nonhairy, clean, dry skin on the upper body or upper outer arm. Rotate patch sites. Notify pharmacy if patient or provider prefers patch to be removed at bedtime and replaced in the morning. Hazardous Medication -- Refer to facility policy for handling and disposal. 1933 (Patch Applied - Provider: Daisy Cooper RN) 0831 (Patch Removed - Provider: Leidy Leary RN)0840 (Patch Applied - Provider: Leidy Leary RN) PHENobarbital (LUMINAL) tablet 32.4 mg 32.4 mg, Oral, 3 TIMES DAILY, First dose on Thu05/17/21 at 1430 0843 (Given - Provider: Genesis Loya RN)1415 (Given - Provider: Genesis Loya RN)2132 (Given - Provider: Yareli Diego RN) 0841 (Given - Provider: Daisy Cooper RN)1552 (Given - Provider: Daisy Cooper, SAVAGE)2016 (Given - Provider: Yareli Diego RN) 0831 (Given - Provider: Leidy Leary RN)141 (Given - Provider: Leidy Leary RN)2100 (Due) PHENobarbital (LUMINAL) tablet 64.8 mg 64.8 mg, Oral, 2 TIMES DAILY, First dose on Thu05/17/21 at 1430 0941 (Given - Provider: Genesis Loya RN)2129 (Given - Provider: Yareli Diego RN) 0834 (Given - Provider: Daisy Cooper RN - Comment: combination of 2 doses)2015 (Given - Provider: Yareli Diego RN) 0832 (Given - Provider: Leidy Leary RN)2100 (Due) polyethylene glycol (GLYCOLAX) packet 17 g 17 g, Oral, DAILY, First dose on Thu05/19/21 at 1215 0843 (Given - Provider: Genesis Loya RN) 0832 (Given - Provider: Daisy Cooper RN) 0830 (Given - Provider: Leidy Leary RN) pregabalin (LYRICA) capsule 25 mg 25 mg, Oral, 2 TIMES DAILY, First dose on Thu05/21/21 at 2100 2129 (Given - Provider: Yareli Diego RN) 0834 (Given - Provider: Daisy Cooper, SAVAGE)2014 (Given - Provider: Yareli Diego RN) 0830 (Given - Provider: Leidy Leary, SAVAGE)2099 (Due) senna (SENOKOT) tablet 8.6 mg 8.6 mg (1 tablet), Oral, NIGHTLY, First dose on 05/19/21 at 2100 212 (Given - Provider: Yareli Diego RN) 2018 (Given - Provider: Yareli Diego RN) 2099 (Due) sodium chloride flush 0.9 % injection 5-40 mL 5-40 mL, IntraVENous, EVERY 12 HOURS SCHEDULED (2 times per day), First dose on Thu05/17/21 at 0900, For Line Patency: Peripheral IV = 5 [...] Midline or Central Line = 20 mL/lumen 0856 (Given - Provider: Genesis Loya RN)2131 (Given - Provider: Yareli Diego RN) 0843 (Given - Provider: Daisy Cooper RN)2017 (Given - Provider: Yareli Diego RN) 0832 (Given - Provider: Leidy Leary RN)2099 (Due) tamsulosin (FLOMAX) capsule 0.4 mg 0.4 mg, Oral, DAILY, First dose on Thu05/19/21 at 1215, Do not crush or break. 0843 (Given - Provider: Genesis Loya RN) 0832 (Given - Provider: Daisy Cooper, SAVAGE) 0830 (Given - Provider: Leidy Leary RN) traZODone (DESYREL) tablet 100 mg (CANCELED) 100 mg, Oral, NIGHTLY, First dose on 05/18/21 at 2100 2129 (Given - Provider: Yareli Diego, SAVAGE) PRN Medication Order 05/21/2021 05/22/2021 05/23/2021 0.9 [...] Loya RN) 0132 (Given - Provider: Yareli Diego, RN)0530 (Given - Provider: Yareli Diego, RN)1129 (Given - Provider: Daisy Cooper, RN)1553 (Given - Provider: Daisy Cooper, RN)2016 (Given - Provider: Yareli Diego RN) 0211 (Given - Provider: Yareli Diego RN)0914 (Given - Provider: Leidy Leary, SAVAGE)1417 (Given - Provider: Leidy Leary RN) sodium chloride flush 0.9 % injection 5-40 [...]
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 Kerry Burger , DO Family Provider Active Dr. Kerry Burger , DO Primary Care Provider Active Team Status: Inactive Member Role Status Dates Dr. Kerry Burger , DO Primary Care Provider, Referrin g Provider Active Fran Phoenix MD Attending Provider Active Team Status: Inactive Member Role Status Dates Dr. Kerry Burger , DO Primary Care Provider Active Dr. Fabiola Friend MD Attending Provider, Emergency Provider Active Team Status: Inactive Member Role Status Dates Dr. Kerry Burger , DO Primary Care Provider, Attendin g Provider Active Team Status: Inactive Member Role Status Dates Dr. Kerry Burger , DO Primary Care Provider Active Dr. John Castano , DO Emergency Provider Active Team Status: Active Member Role Status Dates Dr. Kerry Burger , DO Primary Care Provider Active Dr. Spencer Rangel DO Emergency Provider Active Dr. Irlanda Ruiz MD Attending Provider Active Team Status: Inactive Member Role Status Dates Dr. Kerry Burger DO Primary Care Provider Active Dr. Wilman Jimenez MD Attending Provider, Emergency Pro vider Active Team Status: Active Member Role Status Dates Dr. Kerry Burger DO Primary Care Provider Active Dr. Spencer Rangel DO Emergency Provider Active Dr. Irlanda Ruiz MD Admit Provider, Attending Prov ider Active Team Status: Active Member Role Status Dates Dr. Kerry Burger DO Primary Care Provider Active Dr. Spencer Rangel DO Emergency Provider Active Dr. Irlanda Ruiz MD Admit Provider, Other Provider Active Dr. John Lemus DO Attending Provider, Other Provid er Active Team Status: Inactive Member Role Status Dates Dr. Kerry Burger DO Primary Care Provider Active Dr. Spencer Rangel DO Emergency Provider Active Dr. Irlanda Ruiz MD Admit Provider, Other Provider Active Dr. John Lemus DO Attending Provider Active Team Status: Active Member Role Status Dates Dr. Kerry Burger DO Primary Care Provider Active Dr. Fabiola Friend MD Emergency Provider Active Dr. Duran Betancourt MD Admit Provider, Attending Provider Active Team Status: Active Member Role Status Dates Dr. Kerry Burger DO Primary Care Provider Active Dr. Fabiola Friend MD Emergency Provider Active Dr. Duran Betanocurt MD Admit Provider, Other Pro vider Active Dr. John Lemus DO Attending Provider, Other Provid er Active Team Status: Active Member Role Status Dates Dr. Kerry Burger DO Primary Care Provider Active Dr. Fabiola Friend MD Emergency Provider Active Dr. Duran Betancourt MD Admit Provider Active Dr. Kerry Herrera DO Attending Provider, Other Pro vider Active Dr. John Lemus DO Other Provider Active Team Status: Inactive Member Role Status Dates Dr. Kerry Burger DO Primary Care Provider Active Dr. Fabiola Friend MD Emergency Provider Active Dr. Duran Betancourt MD Admit Provider Active Dr. Kerry Herrera DO Attending Provider, Other Pro vider Active Dr. 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 Relationship Specialty Start Date End Date HarpreetKerry mak DO Gaetano PCP - General Family Medicine 12/11/14 Goals (unrecognized section and content) Goals may be documented in a n alternate sectionGoals may be documented in an alternate sectionGoals may be documented in an alternate sectionGoals may be documented in an alternate sectionGoals may be documented in an alternate section Source Comments (unrecognize d section and content) In the event this informatio n is protected by the Federal Confidentiality of Alcohol and Drug Abuse Patient Records regulations: The Federal rules restrict any use of the information to criminally investigate or prosecute any alcohol or drug abuse patient.[facility] FOR RECORDS PERTAINING TO PATIENTS WHO ARE [...] BE BASED ON THE PRIMARY CLINICAL RECORDS. [facility]. provides no warranty or guarantee of the accuracy or completeness of information in this document.
[2024-11-26 23:24] VITALS: BP 143/59; PULSE 57; RESP 18; O2SAT 99
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
[2024-11-26 23:50] VITALS: BP 165/73; PULSE 58; RESP 18; TEMP 37.1; O2SAT 100
[2024-11-27 01:00] VITALS: BP 141/62; PULSE 56; RESP 18; O2SAT 98
[2024-11-27 03:00] VITALS: BP 133/81; PULSE 51; RESP 18; O2SAT 100
== END 2024-11-27 03:30 | disposition home or self-care (01) ==
PROVIDERS: Emergency Provider Emergency Medicine; PCP Family Medicine; Visit Provider Emergency Medicine
DX: M54.2 Cervicalgia (principal); J44.9 Chronic obstructive pulmonary disease, unspecified; N18.30 Chronic kidney disease, stage 3 unspecified; I25.10 Atherosclerotic heart disease of native coronary artery without angina pectoris; E78.5 Hyperlipidemia, unspecified; I12.9 Hypertensive chronic kidney disease with stage 1 through stage 4 chronic kidney disease, or unspecified chronic kidney disease; G89.29 Other chronic pain; R29.6 Repeated falls; Z91.81 History of falling; R26.9 Unspecified abnormalities of gait and mobility
CPT/HCPCS: 70450; 72125; 96372; 99284

== ENCOUNTER 2024-12-05 18:59 | Emergency (ER) | payer OTHER, SELFPAY ==
[2024-12-05 19:01] VITALS: BP 178/78; PULSE 78; RESP 22; TEMP 36.3; O2SAT 94
[2024-12-05 19:13] VITALS: BMI 30.7
--- NOTE | 2024-12-05 19:31 | EKG12_ITS ---
Test Reason : DYSRHYTHMIA Blood Pressure : */* mmHG Vent. Rate : 74 BPM Atrial Rate : 74 BPM P-R Int : 196 ms QRS Dur : 76 ms QT Int : 354 ms P-R-T Axes : 67 -8 43 degrees QTcB Int : 392 ms Normal sinus rhythm Normal ECG Confirmed by ZHAO XAVIER, RACHEL ([id number]), technical editor DIONNA MOORE ([id number]) on 12/06/2024 8:10:26 AM Referred By: Confirmed By: RACHEL CHURCHILL MD
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
[2024-12-05 19:58] LABS: Hematocrit 52.2 % (40-54); Hemoglobin 17.0 g/dL (13.0-16.5); Immature Granulocytes Count 0.080 X10^3/uL (0.0-0.0); Mean Corp Hgb Conc 32.6 g/dL (32-36); Mean Corpuscular Volume 99.6 fL (80-94); Mean Platelet Vol. 10.3 fl (6.2-12.0); NRBC Flagged by Analyzer 0 % (0-5); Platelet Count 155 K/mm3 (150-450); RBC Distribution Width CV 12.8 % (11.6-14.6); RBC Distribution Width SD 47.5 fl (35.1-43.9); Red Blood Count 5.24 M/mm3 (4.6-6.2); White Blood Count 9.3 K/mm3 (4.4-11.0)
--- NOTE | 2024-12-05 20:00 | CT_ITS ---
EXAM: CT BRAIN/HEAD; SPINE CERVICAL WITHOUT CONTRAST CLINICAL HISTORY: FALL, SEIZURE; NECK PAIN COMPARISON: 11/26/2024 TECHNIQUE: Noncontrast CT images of the head and cervical spine with multiplanar reconstructions. Dose reduction techniques were used including intermediate exposure control (AEC),iterative reconstruction technique, and/or mA and/or KV dose adjustments based on patient's size. FINDINGS: HEAD: No acute intracranial hemorrhage, extra-axial collection, mass effect or evidence of acute infarct. Mild age-appropriate generalized brain parenchymal volume loss. Prior left orbital cataract surgery. Intact skull base and calvarium. Well-aerated paranasal sinuses and mastoid air cells. CERVICAL SPINE: No evidence of acute fracture or subluxation. Positional and/or degenerative straightening of the cervical lordosis. Advanced multilevel spondylotic changes with varying degrees of disc space narrowing, multiple small Schmorl's nodes and/or subchondral cysts, bulky anterior bridging osteophytosis, uncovertebral spurring and hypertrophic facet arthropathy. No prevertebral soft tissue swelling. CT/Spine Cervical without Contras IMPRESSION: No acute traumatic findings. Chronic/degenerative changes as described above. Reading Location: [id number]
--- NOTE | 2024-12-05 20:00 | CT_ITS ---
EXAM: CT BRAIN/HEAD; SPINE CERVICAL WITHOUT CONTRAST CLINICAL HISTORY: FALL, SEIZURE; NECK PAIN COMPARISON: 11/26/2024 TECHNIQUE: Noncontrast CT images of the head and cervical spine with multiplanar reconstructions. Dose reduction techniques were used including intermediate exposure control (AEC),iterative reconstruction technique, and/or mA and/or KV dose adjustments based on patient's size. FINDINGS: HEAD: No acute intracranial hemorrhage, extra-axial collection, mass effect or evidence of acute infarct. Mild age-appropriate generalized brain parenchymal volume loss. Prior left orbital cataract surgery. Intact skull base and calvarium. Well-aerated paranasal sinuses and mastoid air cells. CERVICAL SPINE: No evidence of acute fracture or subluxation. Positional and/or degenerative straightening of the cervical lordosis. Advanced multilevel spondylotic changes with varying degrees of disc space narrowing, multiple small Schmorl's nodes and/or subchondral cysts, bulky anterior bridging osteophytosis, uncovertebral spurring and hypertrophic facet arthropathy. No prevertebral soft tissue swelling. CT/Brain/Head without Contrast IMPRESSION: No acute traumatic findings. Chronic/degenerative changes as described above. Reading Location: [id number]
--- NOTE | 2024-12-05 20:10 | RAD_ITS ---
PROCEDURE: CHEST PA AND LATERAL 12/05/2024 REASON FOR EXAM: FALL RULE OUT RIB FX TECHNIQUE: Procedure Code: RADCXR Modality: DX Procedure: CHEST PA AND LATERAL COMPARISON: 06/26/2023 FINDINGS: Lungs/Pleura: Clear. No pneumothorax or pleural effusion. Heart/Mediastinum: Within normal limits. Bones/Soft tissues: Multilevel degenerative changes of the spine with evidence of DISH, and degenerative changes of bilateral shoulders. No acute fracture or dislocation appreciated. RAD/Chest PA and Lateral IMPRESSION: No acute cardiopulmonary disease. No acute fracture or dislocation appreciated on this exam. Reading Location: [id number]
--- NOTE | 2024-12-05 20:10 | RAD_ITS ---
PROCEDURE: PELVIS 1 OR 2 VIEWS 12/05/2024 REASON FOR EXAM: FALL TECHNIQUE: Procedure Code: RADPEL Modality: DX Procedure: PELVIS 1 OR 2 VIEWS COMPARISON: None. FINDINGS: No evidence of acute fracture or dislocation. Alignment is anatomic. Mild- moderate bilateral hip arthrosis, and degenerative changes of the imaged lower lumbosacral spine. Suture material projected over the right iliac wing. Grossly unremarkable soft tissues. RAD/Pelvis 1 or 2 Views IMPRESSION: No evidence of acute fracture or dislocation. Reading Location: [id number]
[2024-12-05 20:19] LABS: Anion Gap 11 (5-15); BUN 28 mg/dL (4-19); BUN/Creat Ratio 20.2 RATIO (10-20); Calcium,Total 9.0 mg/dL (7.6-11.0); Carbon Dioxide 25.0 mmol/L (21.0-32.0); Chloride 103 mmol/L (98-108); Estimated Creatinine Clearance 53.59 ml/min (50-250); Glucose 108 mg/dL (70-99); Potassium 4.5 mmol/L (3.3-5.1)
[2024-12-05] MEDS: 0.9% Normal Saline (1000mL) 1,000 ML 1000 ML IV (20:50)
[2024-12-05 21:00] VITALS: BP 160/89; PULSE 65; RESP 18; O2SAT 93
[2024-12-05 23:00] VITALS: BP 168/93; PULSE 68; RESP 18; O2SAT 98
[2024-12-05 23:13] VITALS: BP 168/93; PULSE 65; RESP 18; TEMP 36.6; O2SAT 97
--- NOTE | 2024-12-06 00:30 | EKG12_ITS ---
Test Reason : CP Blood Pressure : */* mmHG Vent. Rate : 64 BPM Atrial Rate : 64 BPM P-R Int : 196 ms QRS Dur : 86 ms QT Int : 386 ms P-R-T Axes : 55 -18 34 degrees QTcB Int : 398 ms Normal sinus rhythm Inferior infarct , age undetermined Abnormal ECG Confirmed by ZHAO XVAIER, RACHEL ([id number]), field map editor DIONNA MOORE ([id number]) on 12/06/2024 8:14:29 AM Referred By: Confirmed By: RACHEL CHURCHILL MD
--- OUTSIDE RECORDS SUMMARY | 2024-12-07 01:10 | XMS RPT_ITS ---
Author Name Auto Generated Organization OHIP PROBLEMS No Problem Records Found PROCEDURES No Procedure Records Found RESULTS PROGRESS Observed: 06/02/2024 2:11 PM Status: COMPLETED Source: [facility] HNO ID: [id number] Author: RADHA PETERS CPhT Service: ? Author Type: Coagulating Bath Operator Type: Progress Notes Filed: 06/02/2024 14:12 Note Text: Patient is identified through a medication adherence outreach initiative based on pharmacy claims data from: [employer] Medication Adherence Category: [place] First Review Attribution Status: Questionable Attribution - Patient moved out of care, hospice Radha Peters CPhT Value Based Care Pharmacy Team CNPTOUTREACH Observed: 06/02/2024 12:00 AM Status: COMPLETED Source: [facility] Patient Outreach (PHPOHE) GERMAN [facility]TS ([id number]) 1950 Date Time Provider Department 06/02/24 KERRY BURGER PHPOHE During your visit today, we recorded the following information about you: Radha Peters CPhT 06/02/2024 2:12 PM Signed Patient is identified through a medication adherence outreach initiative based on pharmacy claims data from: [employer] Medication Adherence Category: [place] First Review Attribution Status: Questionable Attribution - Patient moved out of care, hospice Radha Peters CPhT Value Based Care Pharmacy Team Allergies As of Date: [...] polyps [Z86.0100] 01/03/2016 Encounter Status:Closed by RADHA PETERS on 06/02/24 ALLERGIES No Allergies Records Found ENCOUNTERS No Encounter Records Found PAYERS No Payer Records Found
== END 2024-12-06 01:05 | disposition home or self-care (01) ==
PROVIDERS: Emergency Provider Student in an Organized Health Care Education/Training Program; PCP Family Medicine; Visit Provider Student in an Organized Health Care Education/Training Program
DX: N17.9 Acute kidney failure, unspecified (principal); J44.9 Chronic obstructive pulmonary disease, unspecified; G40.909 Epilepsy, unspecified, not intractable, without status epilepticus; N18.30 Chronic kidney disease, stage 3 unspecified; E78.5 Hyperlipidemia, unspecified; I25.10 Atherosclerotic heart disease of native coronary artery without angina pectoris; I12.9 Hypertensive chronic kidney disease with stage 1 through stage 4 chronic kidney disease, or unspecified chronic kidney disease; Z90.49 Acquired absence of other specified parts of digestive tract; G89.29 Other chronic pain; M54.2 Cervicalgia; W19.XXXA Unspecified fall, initial encounter
CPT/HCPCS: 70450; 71046; 72125; 72170; 80048; 80184; 83605; 85025; 93005; 96361; 96374; 96376; 99285; A4216

== ENCOUNTER 2025-01-19 12:38 | Observation (INO) | payer MEDICARE, MEDICAID, SELFPAY ==
[2025-01-19] VITALS (8 sets, daily range): BP systolic 104–121; BP diastolic 58–78; PULSE 54–66; RESP 16–18; TEMP 36.4–37; O2SAT 88–99; BMI 26.9; BMI 25.5
--- NOTE | 2025-01-19 13:03 | CT_ITS ---
PROCEDURE: CHEST WITHOUT CONTRAST 01/19/2025 REASON FOR EXAM: FALL, RIB PAIN TECHNIQUE: Chest CT without contrast. Coronal and Sagittal reconstruction series were provided. One or more dose reduction techniques were used (e.g., Automated exposure control, adjustment of the mA and/or kV according to patient size, use of iterative reconstruction technique RADIATION DOSE SUMMARY: CTDlvol: 23.5 mGy DLP: 2139.34 mGycm COMPARISON: None FINDINGS: Hardware: EKG electrodes. Lymph nodes: No significant lymphadenopathy is seen. Heart and Vasculature: Coronary artery calcification. The heart is nonenlarged. Atherosclerotic calcifications of the thoracic aorta. Thoracic aorta and pulmonary arteries have normal contours; noncontrast technique limits evaluation. Coronary Artery Calcifications: Present Lungs and Airways: Mild degree of linear atelectasis at the lung bases. Pleura: No pleural effusion. Upper Abdomen: Unremarkable. Bones: Degenerative changes of the thoracic spine. CT/Chest without Contrast IMPRESSION: Coronary artery calcification (CAC) is is present No acute abnormality is seen. Reading Location: [place] [id number]
--- NOTE | 2025-01-19 13:04 | CT_ITS ---
PROCEDURE: BRAIN/HEAD WITHOUT CONTRAST 01/19/2025 REASON FOR EXAM: INJURY/PAIN TECHNIQUE: Procedure Code: CTBR Modality: CT Procedure: BRAIN/HEAD WITHOUT CONTRAST Coronal and Sagittal reconstruction series were provided. One or more dose reduction techniques were used (e.g., Automated exposure control, adjustment of the mA and/or kV according to patient size, use of iterative reconstruction technique. RADIATION DOSE SUMMARY: CTDlvol: 44.99 mGy DLP: 846.73 mGycm COMPARISON: December 05, 2024. FINDINGS: Brain: Low density in the periventricular white matter suggests mild chronic small vessel ischemic changes. CSF Spaces: Mild generalized cerebral atrophy Sinuses/Mastoids: Clear at visualized levels Bones: No fracture. CT/Brain/Head without Contrast IMPRESSION: CHRONIC CHANGES. NO ACUTE FINDINGS. Reading Location: [place] [id number]
--- NOTE | 2025-01-19 13:04 | CT_ITS ---
PROCEDURE: SPINE CERVICAL WITHOUT CONTRAS 01/19/2025 REASON FOR EXAM: INJURY/PAIN TECHNIQUE: Procedure Code: CTSPC Modality: CT Procedure: SPINE CERVICAL WITHOUT CONTRAS Coronal and Sagittal reconstruction series were provided. One or more dose reduction techniques were used (e.g., Automated exposure control, adjustment of the mA and/or kV according to patient size, use of iterative reconstruction technique. RADIATION DOSE SUMMARY: CTDlvol: 32.89 mGy DLP: 663.24 mGycm COMPARISON: December 05, 2024. FINDINGS: Alignment: Levoscoliosis most likely secondary to muscle spasm. Vertebrae: Multilevel spondylosis. Soft Tissues: No prevertebral soft tissue swelling. Other: C1-2: Degenerative changes of the atlantoaxial joint. C2-3: Moderate degree of disc space narrowing and spondylosis. Uncovertebral arthrosis. Bilateral neural foraminal stenosis worse on the right side. C3-4: Marked degree of disc space narrowing. Spondylosis. Uncovertebral arthrosis. Bilateral neural foraminal stenosis worse on the right side. C4-5: Marked degree of disc space narrowing. Spondylosis. Facet joint osteoarthritis. Uncovertebral arthrosis. Bilateral neural foraminal stenosis C5-6: Marked degree of disc space narrowing. Spondylosis. Uncovertebral arthrosis and facet joint osteoarthritis. Bilateral neural foraminal stenosis. C6-7: Marked degree of disc space narrowing with spondylosis. Uncovertebral arthrosis and facet joint osteoarthritis. CT/Spine Cervical without Contras IMPRESSION: Multilevel disc space narrowing with spondylosis and bilateral neural foraminal stenosis. Reading Location: [facility]
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
[2025-01-19 13:16] LABS: Hematocrit 53.5 % (40-54); Hemoglobin 17.8 g/dL (13.0-16.5); Immature Granulocytes Count 0.140 X10^3/uL (0.0-0.0); Mean Corp Hgb Conc 33.3 g/dL (32-36); Mean Corpuscular Volume 99.1 fL (80-94); Mean Platelet Vol. 10.6 fl (6.2-12.0); NRBC Flagged by Analyzer 0 % (0-5); Platelet Count 150 K/mm3 (150-450); RBC Distribution Width CV 13.2 % (11.6-14.6); RBC Distribution Width SD 48.3 fl (35.1-43.9); Red Blood Count 5.40 M/mm3 (4.6-6.2); White Blood Count 11.5 K/mm3 (4.4-11.0)
[2025-01-19] MEDS: 0.9% Normal Saline (1000mL) 1,000 ML 1000 ML IV (13:21)
--- NOTE | 2025-01-19 13:35 | RAD_ITS ---
PROCEDURE: LUMBAR SPINE 2 OR 3 VIEWS 01/19/2025 REASON FOR EXAM: INJURY/PAIN TECHNIQUE: Procedure Code: RADSPLL Modality: DX Procedure: LUMBAR SPINE 2 OR 3 VIEWS COMPARISON: None FINDINGS: Vertebrae: Multilevel spondylosis. Discs: Advanced multilevel disc space narrowing with endplate osteophytes. Facet joint osteoarthritis. Alignment: Loss of the normal lumbar lordosis. Other: Facet joint osteoarthritis and hypertrophy. RAD/Lumbar Spine 2 or 3 Views IMPRESSION: ADVANCED DEGENERATIVE CHANGES OF THE LUMBAR SPINE. Reading Location: [place] [id number]
[2025-01-19 14:04] LABS: CPK Total, Creatine Kinase 353 U/L (24-195)
[2025-01-19 14:08] LABS: Anion Gap 12 (5-15); BUN 14 mg/dL (4-19); BUN/Creat Ratio 10.5 RATIO (10-20); Calcium,Total 9.1 mg/dL (7.6-11.0); Carbon Dioxide 26.2 mmol/L (21.0-32.0); Chloride 100 mmol/L (98-108); Estimated Creatinine Clearance 48.79 ml/min (50-250); Glucose 86 mg/dL (70-99); Potassium 4.4 mmol/L (3.3-5.1)
--- NOTE | 2025-01-19 15:53 | CASEMGMT ---
Care Management Face to Face with patient for initial transition planning/care coordination assessment in the ED. This rfp writer introduced self and role at [facility]. Patient alert and oriented. Patient willing to participate in assessment and is able to answer all questions appropriately. Care providers, pharmacy, and demographics verified. Admitting Diagnosis: Debility, unspecified Other diagnosis history: CKD stage III, COPD, GERD, HTN, HLD PCP: Harpreet Specialists: Jorge, pain management. Preferred Pharmacy: [facility] Insurance: [facility] Medicare (primary). [facility] Medicaid). Of note, patient does have VA insurance, but signed a declination form in the ED. Prescription Benefit: yes Living Will/HPOA: no and does not want information. LNOK: brother, Surya. Living Arrangements: lives alone in a first floor apartment. Is not independent with anything and needs help from patient's VA aide. Transportation: patient states having an license and relying on [facility] transportation DME: [employer] via [employer]. HHC: [facility], per medical records SNF/Rehab: [facility], per medical records Community Resources: VA aide who comes every weekday for 3 hours each Behavioral Health History: PTSD, per medical records Patient goals: Patient was unable to state wishes in the ED, however patient was unsteady with ambulation attempt in ED with a walker. Disposition Plan: admission to acute; RN CM/SW to follow for discharge planning needs that may arise. Lisset Adams, FLIGHT RADIO OPERATOR, ADMISSIONS DEAN
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
--- NOTE | 2025-01-19 18:50 | NURSING ---
Patient gave this RN permission to call his brother, Surya, to ask if he could bring in his eye drops. VM left for Surya with return call requested.
[2025-01-19] MEDS: Heparin Injection (Vial) 5,000 UNIT/ML VIAL 5000 UNIT SC (21:47)
[2025-01-20 04:00] VITALS: BP 110/62; PULSE 57; RESP 16; TEMP 36.8; O2SAT 96
[2025-01-20] MEDS: Cholecalciferol (VIT D3) 25 MCG TABLET (1,000 UNITS) 50 MCG PO (07:55)
[2025-01-20] MEDS: Isosorbide DN 30 MG Tablet PO (07:56)
[2025-01-20] MEDS: Heparin Injection (Vial) 5,000 UNIT/ML VIAL 5000 UNIT SC (07:56)
[2025-01-20] MEDS: Latanoprost 0.005% 1 Bottle 1 DRP OPHTHALMIC (07:57)
[2025-01-20 08:19] LABS: Hematocrit 51.7 % (40-54); Hemoglobin 17.3 g/dL (13.0-16.5); Immature Granulocytes Count 0.070 X10^3/uL (0.0-0.0); Mean Corp Hgb Conc 33.5 g/dL (32-36); Mean Corpuscular Volume 99.0 fL (80-94); Mean Platelet Vol. 10.6 fl (6.2-12.0); NRBC Flagged by Analyzer 0 % (0-5); Platelet Count 145 K/mm3 (150-450); RBC Distribution Width CV 13.2 % (11.6-14.6); RBC Distribution Width SD 48.2 fl (35.1-43.9); Red Blood Count 5.22 M/mm3 (4.6-6.2); White Blood Count 7.4 K/mm3 (4.4-11.0)
[2025-01-20 08:21] VITALS: BP 124/69; PULSE 60; RESP 16; TEMP 36.6; O2SAT 99
[2025-01-20 09:02] LABS: AST(SGOT) 24 U/L (<=37); Alanine Aminotransfer ALT/SGPT 24 U/L (<=46); Albumin, Serum 3.9 g/dL (3.4-4.8); Alkaline Phosphatase 117 U/L (40-129); Anion Gap 10 (5-15); BUN 15 mg/dL (4-19); BUN/Creat Ratio 12.0 RATIO (10-20); Calcium,Total 8.8 mg/dL (7.6-11.0); Carbon Dioxide 23.3 mmol/L (21.0-32.0); Chloride 102 mmol/L (98-108); Estimated Creatinine Clearance 52.76 ml/min (50-250); Globulin 3.0 g/dL (2.2-4.2); Glucose 114 mg/dL (70-99); Potassium 4.1 mmol/L (3.3-5.1)
--- NOTE | 2025-01-20 09:51 | PN.HOSP_ITS ---
Reason for Visit Chief Complaint: Generalized weakness, mechanical falls at home Objective Data Objective Data Vital Signs: Vital Signs Temp Pulse Resp BP Pulse Ox O2 Del Method 97.8 F 60 16 124/69 H 99 Room Air 01/20/25 08:21 01/20/25 08:21 01/20/25 08:21 01/20/25 08:21 01/20/25 08:21 01/20/25 08:21 Oxygen Delivery Method Room Air Weight: 178 lb 4.8 oz Body Mass Index (BMI) 25.5 Intake & Output: Intake and Output for Last 24 Hours 01/18/25 01/19/25 01/20/25 23:59 23:59 23:59 Intake Total 1200 / 1200 200 / 200 Balance 1200 / 1200 200 / 200 Lab / Micro Data 01/20/25 08:03 01/20/25 08:03 Labs: Laboratory Results - last 24 hr 01/19/25 12:55: WBC 11.5 H, RBC 5.40, Hgb 17.8 H, Hct 53.5, MCV 99.1 H, MCH 33.0 H, MCHC 33.3, RDW Std Deviation 48.3 H, RDW Coeff of Frantz 13.2, Plt Count 150, MPV 10.6, Immature Gran % (Auto) 1.200 H, Neut % (Auto) 78.4 H, Lymph % (Auto) 7.2 L, [place] % (Auto) 11.2 H, Eos % (Auto) 1.6, Baso % (Auto) 0.4, Absolute Neuts (auto) 9.0 H, Absolute Lymphs (auto) 0.83, Nucleated RBC % 0, Sodium 138, Potassium 4.4, Chloride 100, Carbon Dioxide 26.2, Anion Gap 12, BUN 14, C reatinine 1.33 H, Estim Creat Clear Calc 48.79 L, Est GFR (MDRD) Non-Af 55 L, BUN/Creatinine Ratio 10.5, Glucose 86, Calcium 9.1, Total Creatine Kinase 353 H 01/20/25 08:03: WBC 7.4, RBC 5.22, Hgb 17.3 H, Hct 51.7, MCV 99.0 H, MCH 33.1 H, MCHC 33.5, RDW Std Deviation 48.2 H, RDW Coeff of Frantz 13.2, Plt Count 145 L, MPV 10.6, Immature Gran % (Auto) 0.900, Neut % (Auto) 73.1 H, Lymph % (Auto) 11.2 L, [place] % (Auto) 10.3 H, Eos % (Auto) 4.2, Baso % (Auto) 0.3, Absolute Neuts (auto) 5.4, Absolute Lymphs (auto) 0.83, Nucleated RBC % 0, Sodium 136, Potassium 4.1, Chloride 102, Carbon Dioxide 23.3, Anion Gap 10, BUN 15, Creatinine 1.23 H, Estim Creat Clear Calc 52.76, Est GFR (MDRD) Non-Af 61, BUN/Creatinine Ratio 12.0, Glucose 114 H, Calcium 8.8, Total Bilirubin 0.54, AST 24, ALT 24, Alkaline Phosphatase 117, Total Protein 6.8, Albumin 3.9, Globulin 3.0, Albumin/Globulin Ratio 1.3 Micro: Microbiology 01/19/25 13:15 Mucosa - Nose SARS-CoV-2, Influenza & RSV (PCR) - Final Radiography Diagnostic Testing: Radiology Impression Chest CT 01/19/25 13:03 IMPRESSION: Coronary artery calcification (CAC) is is present No acute abnormality is seen. Reading Location: [facility] 01/19/25 13:04 IMPRESSION: CHRONIC CHANGES. NO ACUTE FINDINGS. Reading Location: [facility] 01/19/25 13:04 IMPRESSION: Multilevel disc space narrowing with spondylosis and bilateral neural foraminal stenosis. Reading Location: [facility] Lumbar Spine X-Ray 01/19/25 13:35 IMPRESSION: ADVANCED DEGENERATIVE CHANGES OF THE LUMBAR SPINE. Reading Location: [facility] Assessment & Plan Assessment/Plan (1) Debility, unspecified: PLAN: Plan 1. Generalized debility-secondary to deconditioning-patient will be placed in observation status on Jorje 3, he will be seen by PT and OT, it may be necessary for the patient to go to an extended care facility for short-term rehab services. #2 polypharmacy-I have elected to decrease the dose of some of the medications the patient is currently on due to sedation with these medications #3 seizure disorder-patient's phenobarb level is pending at this time #4 chronic neck pain-secondary to degenerative joint disease of the cervical spine-I have elected to decrease the patient's pain medication at this time due to possible sedation with these medications. #5 chronic kidney disease stage IIIa-complicates care, management, recovery, and prognosis #6 atherosclerotic heart disease-patient is on dual antiplatelet therapy #7 chronic obstructive pulmonary disease-patient will be placed on albuterol aerosols as needed dyspnea #8 glaucoma-patient is on several eyedrops at this time, I confirm the eyedrops that he is currently using on a regular basis #9 hyperlipidemia-patient is on a statin #10 chronic anxiety-patient is currently on Valium, I have elected to reduce the dose to 5 mg 3 times daily due to possible sedation with this medication
[2025-01-20] MEDS: Nicotine (PBKC) 21 MG Patch TD (10:12)
[2025-01-20] MEDS: Nicotine 2mg Gum (PBKC) 2 MG GUM PO (10:30)
--- NOTE | 2025-01-20 10:40 | PCM.DC ---
Discharge Instructions DC O2, CPAP, BIPAP needs Home O2 Discharge instructions: No Dressing / Incision Discharge Activity: Return to Normal Activity and May Not Drive Weight Bearing Status: Weight bearing as tolerated Dressing / Incision Call your doctor if you observe: Fever of 101 or Higher, Coldness, Increased Pain, Numbness or Tingling, Change in Color, Inability to urinate, Inability to have a bowel movement, Shortness of breath, Dizziness, Fainting spells, Swelling in the ankles, Chest pain, Prolonged hiccupping, Increased palpitations (irregular heartbeat) and Calf discomfort Follow Up Care When: IN 2 WEEKS Test Results: Test results from this visit will be discussed in further detail at your follow-up appointment, if applicable. Discharge Plan Admission Admit Date/Time: 01/19/25 16:08 Attending Provider: Elijah Herrera Primary Care Provider: Elijah Mullins Discharge Orders/Prescriptions Prescriptions: New nicotine 21 mg/24 hr Patch 24 Hour 21 mg transdermal DAILY 28 Days Qty: 28 0RF Continued clopidogrel 75 MG tablet 75 mg PO DAILY Patient Comments: Blood thinner trazodone 100 MG tablet 100 mg PO QHS Patient Comments: Sleep isosorbide dinitrate 30 MG tablet 30 mg PO DAILY simvastatin 20 MG tablet 20 mg PO QHS Patient Comments: supposed to be on but hasnt started cholecalciferol (vitamin D3) 2,000 UNIT capsule 2,000 unit PO DAILY montelukast 10 mg tablet 10 mg PO DAILY PRN Patient Comments: take 1 tablet by mouth once daily oxycodone 10 mg tablet 10 mg PO TID prazosin 2 mg capsule 4 mg PO DAILY Patient Comments: NOT SURE IF IT IS 2 OR 4 MG tiagabine [Gabitril] 4 mg tablet 4 mg PO 4X/DAY albuterol sulfate 2.5 mg /3 mL (0.083 %) Solution For Nebulization 2.5 mg inhalation Q4H PRN PRN (Reason: shortness of breath or wheezing) Qty: 0 0RF aspirin 81 mg Tablet,Chewable 81 mg PO DAILY@0800 Qty: 0 0RF Artificial Tears([id number]) 1-0.2-0.2 % Drops 1 drp EACH EYE Q2H PRN PRN (Reason: DRY EYES) Qty: 0 0RF timolol maleate 0.5 % Drops 1 drp ophthalmic (eye) BID Qty: 0 0RF mecobalamin (vitamin B12) [B12 Active] 1,000 mcg tablet,chewable 1,000 mcg PO DAILY Qty: 1 0RF latanoprost 0.005 % drops 1 drp ophthalmic (eye) DAILY prednisolone acetate 1 % drops,suspension 1 drp LEFT EYE 4X/DAY tamsulosin 0.4 mg capsule 0.4 mg PO QPM erythromycin 5 mg/gram (0.5 %) ointment 1 applic ophthalmic (eye) QHS olopatadine 0.1 % drops 1 drp ophthalmic (eye) BID testosterone enanthate 200 mg/mL oil 200 mg IM Q14D Rhopressa 0.02 % drops 1 drp ophthalmic (eye) DAILY phenobarbital 32.4 MG tablet 32.4 mg PO BID phenobarbital 32.4 mg Tablet 64.8 mg PO 0600 fenofibrate 54 mg tablet 54 mg PO DAILY tiagabine 4 mg tablet 4 mg PO 4X/DAY Patient Comments: not sure if he is taking this or gabapentin Changed diazepam 10 mg tablet 5 mg PO TID 3 Days Qty: 5 0RF Referrals / Follow Up: Elijah Mullins DO [Primary Care Provider, Family Practice] Disposition Disposition (needs filled in before D/C Order can be placed): Home Health Service
[2025-01-20 11:06] VITALS: BP 91/71; PULSE 59; RESP 16; TEMP 37.1; O2SAT 95
--- NOTE | 2025-01-20 11:18 | PCM.DC.SUM ---
Providers Date of Admission: 01/19/25 Date of Discharge: 01/20/25 Primary Care Physician: Dr. Elijah Mullins, Reason For Visit: GENERALIZED WEAKNESS, DEBILITY Diagnosis Discharge Diagnosis (1) Debility, unspecified: Status: Acute Code(s): R53.81 - Other malaise Plan Patient was admitted after a fall 2 times in last 1 week and 3 times in the last 1 month. Patient has a chronic pain, PTSD and is on multiple psych medication. He states he falls in the right side and admitted to subacute bruising on right leg 1. Generalized debility-secondary to deconditioning-[facility]. Evaluated by PT and OT. It was found that he does not need alf. Home health is arranged. Outpatient PT #2 polypharmacy-dose of diazepam was decreased. Patient also on phenobarb and trazodone. I advised to decrease the dose but he said he needs for PTSD. Dose of diazepam decreased to 5 mg3 times daily, trazodone decreased to 50 mg at night. #3 seizure disorder-patient's phenobarb level is pending at this time #4 chronic neck pain-secondary to degenerative joint disease of the cervical spine: The dose of oxycodone also decreased to 5 mg twice daily as needed. Patient states he takes oxycodone because of cervical spine/neck pain, bilateral shoulder pain and lower back pain. He has appointment with Dr. Brown. He also said he takes cortisone/steroids taught by him #5 chronic kidney disease stage IIIa-complicates care, management, recovery, and prognosis #6 atherosclerotic heart disease-patient is on dual antiplatelet therapy #7 chronic obstructive pulmonary disease: Continue on albuterol aerosols as needed dyspnea #8 glaucoma-patient is on several eyedrops at this time, chronic left eye blindness continue eyedrops. #9 hyperlipidemia-patient is on a statin #10 chronic anxiety-patient is currently on Valium, Valium/Heather dose decreased to 5 mg 3 times daily. Discharge medication reconciliation done. Discharge follow-up instructions completed. Discharge process discussed with the patient and all questions were answered to patient's satisfaction. Follow with PCP in 1 to 2 weeks Total time spent, exact 35 minutes on discharge meds reconciliation, examination, coordination of care with nurses and ancillary staff, review of imaging and blood test and discussion with the patient on follow-up instructions. Medications at Discharge Home Medications clopidogrel 75 mg tablet 75 mg PO DAILY ANTIPLATELET 03/03/14 isosorbide dinitrate 30 mg tablet 30 mg PO DAILY heart 01/07/18 simvastatin 20 mg tablet 20 mg PO QHS 02/13/18 cholecalciferol (vitamin D3) 50 mcg (2,000 unit) capsule 2,000 unit PO DAILY 05/26/19 montelukast 10 mg tablet 10 mg PO DAILY PRN 02/02/23 prazosin 2 mg capsule 4 mg PO DAILY 06/25/23 tiagabine 4 mg tablet (Gabitril) 4 mg PO 4X/DAY 06/25/23 albuterol sulfate 2.5 mg/3 mL (0.083 %) solution for nebulization 2.5 mg (3 mL) inhalation Q4H PRN PRN shortness of breath or wheezing #0 mL 07/02/23 aspirin 81 mg chewable tablet 81 mg PO DAILY@0800 #0 tabs 07/02/23 mecobalamin (vitamin B12) 1,000 mcg chewable tablet (B12 Active) 1,000 mcg PO DAILY #1 TAB 07/02/23 peg [id number] 1 %-0.2 %-0.2 % eye drops (Artificial Tears ([id number])) 1 drp EACH EYE Q2H PRN PRN DRY EYES #0 mL 07/02/23 timolol maleate 0.5 % eye drops 1 drp ophthalmic (eye) BID #0 mL 07/02/23 erythromycin 5 mg/gram (0.5 %) eye ointment 1 applic ophthalmic (eye) QHS 01/19/25 fenofibrate 54 mg tablet 54 mg PO DAILY 01/19/25 latanoprost 0.005 % eye drops 1 drp ophthalmic (eye) DAILY 01/19/25 netarsudil 0.02 % eye drops (Rhopressa) 1 drp ophthalmic (eye) DAILY 01/19/25 olopatadine 0.1 % eye drops 1 drp ophthalmic (eye) BID 01/19/25 phenobarbital 32.4 mg tablet 32.4 mg PO BID SEIZURES 01/19/25 phenobarbital 32.4 mg tablet 64.8 mg PO 0600 01/19/25 prednisolone acetate 1 % eye drops,suspension 1 drp LEFT EYE 4X/DAY 01/19/25 tamsulosin 0.4 mg capsule 0.4 mg PO QPM 01/19/25 testosterone enanthate 200 mg/mL intramuscular oil 200 mg IM Q14D 01/19/25 tiagabine 4 mg tablet 4 mg PO 4X/DAY 01/19/25 diazepam 10 mg tablet 5 mg (1/2 x 10 mg) PO TID anxiety 3 days #5 tabs 01/20/25 nicotine 21 mg/24 hr daily transdermal patch 21 mg transdermal DAILY 28 days #28 ea 01/20/25 oxycodone 10 mg tablet 5 mg (1/2 x 10 mg) PO BID PRN severe pain 3 days #0 tabs 01/20/25 trazodone 100 mg tablet 50 mg (1/2 x 100 mg) PO QHS MENTAL HEALTH/SLEEP 3 days #2 tabs 01/20/25 Physical Exam Narrative Seen and examined in the presence of nurse. Chronically debilitated with pain of the neck, lower back and bilateral shoulder pain. Follows pain management Dr. Psychiatry. He had 2 falls in the last 1 week and 3 for the last 1 month. He has multiple bruises and scabs On the right lower extremity some subacute/healing. He denies LOC or hitting his head. He moves his bowel. Denies dysuria Physical exam General: Alert, Oriented x3, Cooperative HEENT: Left eye blindness. Atraumatic, PERRLA, EOMI, Normocephalic. Oral: No Gingival or Mucosal Lesions/ Ulcerations Neck: Supple, No JVD, Negative Carotid Bruits Chest wall/Lungs: Air entry diminished in bilateral lung bases. No crepitation/rhonchi Cardiovascular: Regular rate and rhythm, Normal S1,S2, No M/G/R Abdomen: Bowel Sounds Present, Soft, Non Tender, Non-Distended : No dysuria. No renal angle tenderness. No suprapubic tenderness. Extremities: No edema, Capillary Refill Less than 3 Seconds Skin: No rashes, No breakdown Musculoskeletal: Chronic tenderness from neck and lower back. ROM restricted of lower extremity and C-spine and lumbar spine mild stiffness Neurological: Cranial nerves II-XII grossly intact, DTR 2+/4. No acute focal neurological deficit. Psych/Mental Status: Flat affect. PTSD Weight / BMI Weight Weight: 178 lb 4.8 oz Body Mass Index (BMI) 25.5 ABG / Lab / Microbiology Data 01/20/25 08:03 01/20/25 08:03 Laboratory: Laboratory Results - last 24 hr 01/19/25 12:55: WBC 11.5 H, RBC 5.40, Hgb 17.8 H, Hct 53.5, MCV 99.1 H, MCH 33.0 H, MCHC 33.3, RDW Std Deviation 48.3 H, RDW Coeff of Frantz 13.2, Plt Count 150, MPV 10.6, Immature Gran % (Auto) 1.200 H, Neut % (Auto) 78.4 H, Lymph % (Auto) 7.2 L, [place] % (Auto) 11.2 H, Eos % (Auto) 1.6, Baso % (Auto) 0.4, Absolute Neuts (auto) 9.0 H, Absolute Lymphs (auto) 0.83, Nucleated RBC % 0, Sodium 138, Potassium 4.4, Chloride 100, Carbon Dioxide 26.2, Anion Gap 12, BUN 14, Creatinine 1.33 H, Estim Creat Clear Calc 48.79 L, Est GFR (MDRD) Non-Af 55 L, BUN/Creatinine Ratio 10.5, Glucose 86, Calcium 9.1, Total Creatine Kinase 353 H 01/20/25 08:03: WBC 7.4, RBC 5.22, Hgb 17.3 H, Hct 51.7, MCV 99.0 H, MCH 33.1 H, MCHC 33.5, RDW Std Deviation 48.2 H, RDW Coeff of Frantz 13.2, Plt Count 145 L, MPV 10.6, Immature Gran % (Auto) 0.900, Neut % (Auto) 73.1 H, Lymph % (Auto) 11.2 L, [place] % (Auto) 10.3 H, Eos % (Auto) 4.2, Baso % (Auto) 0.3, Absolute Neuts (auto) 5.4, Absolute Lymphs (auto) 0.83, Nucleated RBC % 0, Sodium 136, Potassium 4.1, Chloride 102, Carbon Dioxide 23.3, Anion Gap 10, BUN 15, Creatinine 1.23 H, Estim Creat Clear Calc 52.76, Est GFR (MDRD) Non-Af 61, BUN/Creatinine Ratio 12.0, Glucose 114 H, Calcium 8.8, Total Bilirubin 0.54, AST 24, ALT 24, Alkaline Phosphatase 117, Total Protein 6.8, Albumin 3.9, Globulin 3.0, Albumin/Globulin Ratio 1.3 Microbiology: Microbiology 01/19/25 13:15 Mucosa - Nose SARS-CoV-2, Influenza & RSV (PCR) - Final Radiography Diagnostic Testing: Radiology Impression Chest CT 01/19/25 13:03 IMPRESSION: Coronary artery calcification (CAC) is is present No acute abnormality is seen. Reading Location: [facility] 01/19/25 13:04 IMPRESSION: CHRONIC CHANGES. NO ACUTE FINDINGS. Reading Location: [facility] 01/19/25 13:04 IMPRESSION: Multilevel disc space narrowing with spondylosis and bilateral neural foraminal stenosis. Reading Location: [facility] Lumbar Spine X-Ray 01/19/25 13:35 IMPRESSION: ADVANCED DEGENERATIVE CHANGES OF THE LUMBAR SPINE. Reading Location: [facility]--1 D/C Instructions Weight Bearing Status: Weight bearing as tolerated Call your doctor if you observe: Fever of 101 or Higher, Coldness, Increased Pain, Numbness or Tingling, Change in Color, Inability to urinate, Inability to have a bowel movement, Shortness of breath, Dizziness, Fainting spells, Swelling in the ankles, Chest pain, Prolonged hiccupping, Increased palpitations (irregular heartbeat) and Calf discomfort DC O2, CPAP, BIPAP Needs Home O2 Discharge instructions: No When: IN 2 WEEKS Meaningful Use Info Meaningful Use Meaningful Use Diagnoses (Choose all that apply): None applicable Discharge Plan Admission Admit Date/Time: 01/19/25 16:08 Attending Provider: Elijah Herrera Primary Care Provider: Elijah Mullins Discharge Orders/Prescriptions Prescriptions: New nicotine 21 mg/24 hr Patch 24 Hour 21 mg transdermal DAILY 28 Days Qty: 28 0RF Continued clopidogrel 75 MG tablet 75 mg PO DAILY Patient Comments: Blood thinner isosorbide dinitrate 30 MG tablet 30 mg PO DAILY simvastatin 20 MG tablet 20 mg PO QHS Patient Comments: supposed to be on but hasnt started cholecalciferol (vitamin D3) 2,000 UNIT capsule 2,000 unit PO DAILY montelukast 10 mg tablet 10 mg PO DAILY PRN Patient Comments: take 1 tablet by mouth once daily prazosin 2 mg capsule 4 mg PO DAILY Patient Comments: NOT SURE IF IT IS 2 OR 4 MG tiagabine [Gabitril] 4 mg tablet 4 mg PO 4X/DAY albuterol sulfate 2.5 mg /3 mL (0.083 %) Solution For Nebulization 2.5 mg inhalation Q4H PRN PRN (Reason: shortness of breath or wheezing) Qty: 0 0RF aspirin 81 mg Tablet,Chewable 81 mg PO DAILY@0800 Qty: 0 0RF Artificial Tears([id number]) 1-0.2-0.2 % Drops 1 drp EACH EYE Q2H PRN PRN (Reason: DRY EYES) Qty: 0 0RF timolol maleate 0.5 % Drops 1 drp ophthalmic (eye) BID Qty: 0 0RF mecobalamin (vitamin B12) [B12 Active] 1,000 mcg tablet,chewable 1,000 mcg PO DAILY Qty: 1 0RF latanoprost 0.005 % drops 1 drp ophthalmic (eye) DAILY prednisolone acetate 1 % drops,suspension 1 drp LEFT EYE 4X/DAY tamsulosin 0.4 mg capsule 0.4 mg PO QPM erythromycin 5 mg/gram (0.5 %) ointment 1 applic ophthalmic (eye) QHS olopatadine 0.1 % drops 1 drp ophthalmic (eye) BID testosterone enanthate 200 mg/mL oil 200 mg IM Q14D Rhopressa 0.02 % drops 1 drp ophthalmic (eye) DAILY phenobarbital 32.4 MG tablet 32.4 mg PO BID phenobarbital 32.4 mg Tablet 64.8 mg PO 0600 fenofibrate 54 mg tablet 54 mg PO DAILY tiagabine 4 mg tablet 4 mg PO 4X/DAY Patient Comments: not sure if he is taking this or gabapentin Changed diazepam 10 mg tablet 5 mg PO TID 3 Days Qty: 5 0RF trazodone 100 MG tablet 50 mg PO QHS 3 Days Qty: 2 0RF Patient Comments: Sleep oxycodone 10 mg tablet 5 mg PO BID PRN (Reason: severe pain) 3 Days Qty: 0 0RF Rx Instructions: Hold for 30 recitation Referrals / Follow Up: Elijah Mullins DO [Primary Care Provider, Family Practice] Disposition Disposition (needs filled in before D/C Order can be placed): Home Health Service
--- NOTE | 2025-01-20 11:38 | PHA.DC.MR.R ---
Pharmacy [place] Med Reconciliation Pharmacy Service has performed discharge medication reconciliation for this patient. The patient's discharge medication list was reviewed for discrepancies and discrepancies were resolved. Medications at Discharge Home Medications clopidogrel 75 mg tablet 75 mg PO DAILY ANTIPLATELET 03/03/14 isosorbide dinitrate 30 mg tablet 30 mg PO DAILY heart 01/07/18 simvastatin 20 mg tablet 20 mg PO QHS 02/13/18 cholecalciferol (vitamin D3) 50 mcg (2,000 unit) capsule 2,000 unit PO DAILY 05/26/19 montelukast 10 mg tablet 10 mg PO DAILY PRN 02/02/23 prazosin 2 mg capsule 4 mg PO DAILY 06/25/23 tiagabine 4 mg tablet (Gabitril) 4 mg PO 4X/DAY 06/25/23 albuterol sulfate 2.5 mg/3 mL (0.083 %) solution for nebulization 2.5 mg (3 mL) inhalation Q4H PRN PRN shortness of breath or wheezing #0 mL 07/02/23 aspirin 81 mg chewable tablet 81 mg PO DAILY@0800 #0 tabs 07/02/23 mecobalamin (vitamin B12) 1,000 mcg chewable tablet (B12 Active) 1,000 mcg PO DAILY #1 TAB 07/02/23 peg [id number]-[id number] 1 %-0.2 %-0.2 % eye drops (Artificial Tears ([id number])) 1 drp EACH EYE Q2H PRN PRN DRY EYES #0 mL 07/02/23 timolol maleate 0.5 % eye drops 1 drp ophthalmic (eye) BID #0 mL 07/02/23 erythromycin 5 mg/gram (0.5 %) eye ointment 1 applic ophthalmic (eye) QHS 01/19/25 fenofibrate 54 mg tablet 54 mg PO DAILY 01/19/25 latanoprost 0.005 % eye drops 1 drp ophthalmic (eye) DAILY 01/19/25 netarsudil 0.02 % eye drops (Rhopressa) 1 drp ophthalmic (eye) DAILY 01/19/25 olopatadine 0.1 % eye drops 1 drp ophthalmic (eye) BID 01/19/25 phenobarbital 32.4 mg tablet 32.4 mg PO BID SEIZURES 01/19/25 phenobarbital 32.4 mg tablet 64.8 mg PO 0600 01/19/25 prednisolone acetate 1 % eye drops,suspension 1 drp LEFT EYE 4X/DAY 01/19/25 tamsulosin 0.4 mg capsule 0.4 mg PO QPM 01/19/25 testosterone enanthate 200 mg/mL intramuscular oil 200 mg IM Q14D 01/19/25 tiagabine 4 mg tablet 4 mg PO 4X/DAY 01/19/25 diazepam 10 mg tablet 5 mg (1/2 x 10 mg) PO TID anxiety 3 days #5 tabs 01/20/25 nicotine 21 mg/24 hr daily transdermal patch 21 mg transdermal DAILY 28 days #28 ea 01/20/25 oxycodone 10 mg tablet 5 mg (1/2 x 10 mg) PO BID PRN severe pain 3 days #0 tabs 01/20/25 trazodone 100 mg tablet 50 mg (1/2 x 100 mg) PO QHS MENTAL HEALTH/SLEEP 3 days #2 tabs 01/20/25
--- NOTE | 2025-01-20 11:47 | CASEMGMT ---
Social Work SW met with pt and introduced self and role of SW. Social Determinants of Health assessment completed and pt denies any concerns at this time. Pt lives at home alone and has a home health aid through the [place] Mon thru Fri for 3 hours each day. Pt states he has a nurse that comes to his house regularly that is through [facility]. Phone call to [facility] who confirms pt has a [facility] visit every other week. Pt states he also has home PT for 2 hours each week that is through the [place]. Pt uses 2L of oxygen at night through [facility]. RNCM updated. Pt feels he is able to return home and denies needs for additional services. Pt does need transportation home. SW called [facility] Van and transportation is arranged for 2pm machine operator picker at the main entrance. Nurse and pt notified. Faith RENDON
--- NOTE | 2025-01-20 15:29 | CASEMGMT ---
Social Work Per nursing, pt states he brought his medical alert and cane to [facility] but does not have it at this time. Nurse manager consumer spoke with ED. ED spoke with EMS crew who picked pt up yesterday at home. EMS states certified driver examiner put the medical alert on the quality audit representative on the pts table and that the quad cane was not by the pt and EMS did not bring it with pt. SW placed call to pt at home to inform of this and confirm pt found his medical alert and cane at home. Phone call is not going through as message is received that pt blocks calls. Phone call to Jas Delgado, who provides pt's home health aids 5 days a week. LAVERNE spoke with Lavern. Lavern confirms that SW has correct phone number for pt. Lavern states she will call pt with this information and if she is unable to get through, she will make sure pt's home health aid checks on equipment on her next visit. JUSTICE Gabriel
== END 2025-01-20 13:47 | disposition home health service (06) ==
LOC: ED 15:32 → MS3 16:47
PROVIDERS: Admitting Provider Internal Medicine; Emergency Provider Emergency Medicine; PCP Family Medicine; Visit Provider Internal Medicine
DX: R53.1 Weakness (principal); J44.9 Chronic obstructive pulmonary disease, unspecified; G40.909 Epilepsy, unspecified, not intractable, without status epilepticus; N18.31 Chronic kidney disease, stage 3a; R53.81 Other malaise; I25.10 Atherosclerotic heart disease of native coronary artery without angina pectoris; S20.20XA Contusion of thorax, unspecified, initial encounter; M54.2 Cervicalgia; W18.30XA Fall on same level, unspecified, initial encounter; E78.5 Hyperlipidemia, unspecified; I12.9 Hypertensive chronic kidney disease with stage 1 through stage 4 chronic kidney disease, or unspecified chronic kidney disease; G89.29 Other chronic pain; F43.10 Post-traumatic stress disorder, unspecified; R29.6 Repeated falls; Z79.02 Long term (current) use of antithrombotics/antiplatelets; Z79.899 Other long term (current) drug therapy; Z79.82 Long term (current) use of aspirin; M54.9 Dorsalgia, unspecified; H40.9 Unspecified glaucoma; R26.81 Unsteadiness on feet; F41.9 Anxiety disorder, unspecified
CPT/HCPCS: 36415; 70450; 71250; 72100; 72125; 80048; 80053; 80184; 82550; 85025; 87631; 96372; 96374; 96375; 97161; 99221; 99285; A4216; G0378; J2405